=== PATIENT | male | born 1965 | race Caucasian/White ===

== ENCOUNTER 2023-04-23 13:56 | Outpatient (OUT) | payer OTHER, SELFPAY ==
--- NOTE | 2023-04-23 15:17 | PM.CN ---
Consult Note: HPI Data of Consult Patient: new to practice Consult date: 04/23/23 Requesting Physician: Elayne Arreola MD Primary Care Provider: ALLISON MATTSON Consult Narrative Reason for consult: Low back, bilateral lower extremity pain Narrative: 57yom who presents for evaluation. Worsening low back, bilateral lower extremity pain for months to years. Previously seen by neurologist and underwent some superficial injections, with limited benefit. Has engaged in >6 weeks of provider directed home exercise course, with minimal benefit. Uses tylenol and tizanidine, with some benefit. Lumbar mri reviewed, which is significant for spondylosis throughout much of lumbar spine, as well as multilevel stenosis, worst at l4-5. denies adverse med side effects. cc:: CC: Elayne Arreola MD Review of Systems ROS Status of ROS 10 or more systems reviewed and unremarkable except as noted in history and below Exam Narrative Exam Narrative: Psych-alert and oriented x 3. Attentive and appropriate, constitutionally normal, displays normal mood and affect per situation. There are no obvious deficits in memory, reasoning, or intellect.? Skin-no obvious rashes, bruising, erythema noted to the patient's area of pain.? Extremities- extremities are warm with minimal edema and palpable pulses. Lumbar-tenderness to palpation noted in the lumbar spine and paraspinal musculature. Pain is elicited with flexion, extension, and lateral rotation of the lumbar spine. Range of motion is diminished with these motions. Facet loading maneuvers are positive.? Strength-noted to be unremarkable with the exception of decreased strength rated at 4 out of 5 in bilateral quadriceps femoris, anterior tibialis. Sensory-no notable sensory deficits in the bilateral lower extremities to touch or pinprick in all dermatomal distributions with the exception to decreased sensation to the bilateral L4, 5 dermatomal distribution Sacroiliac joint - tender to palpation over bilateral PSIS. Positive thigh thrust bilaterally. Positive Lincoln's maneuver bilaterally. Coordination remains intact.? Gait remains non-antalgic. Assessment and Plan Assessment and Plan (1) Lumbar stenosis with neurogenic claudication: (2) Sacroiliac joint dysfunction of both sides: (3) Lumbar spondylosis: Plan 57yom who presents for evaluation. failed physical and medical modalities, as noted. imaging reviewed, as noted. given symptoms and imaging, prudent to attempt bilateral l4-5 tfesi under fluoroscopic guidance. may even benefit from bilateral sij injections. he is in agreement. medications reviewed. i will refill his zanaflex 4mg bid prn. follow up after procedure.
== END 2023-04-23 13:57 | disposition home or self-care (01) ==
PROVIDERS: PCP Family Medicine; Visit Provider Anesthesiology
DX: M47.816 Spondylosis without myelopathy or radiculopathy, lumbar region (principal); M53.3 Sacrococcygeal disorders, not elsewhere classified; M48.062 Spinal stenosis, lumbar region with neurogenic claudication
CPT/HCPCS: G0463

== ENCOUNTER 2023-05-21 08:43 | Day surgery (SDC) | payer OTHER, SELFPAY ==
[2023-05-21 09:21] VITALS: BP 184/91; PULSE 59; RESP 18; TEMP 36.3; O2SAT 96
[2023-05-21 09:25] LABS: Glucometer 123 mg/dL (74-106)
[2023-05-21 10:10] VITALS: BP 150/80; PULSE 66; RESP 18; O2SAT 96
[2023-05-21 10:12] VITALS: BP 199/109; PULSE 64; RESP 18; O2SAT 96
--- NOTE | 2023-05-21 10:14 | W.PM.PROCNOT ---
Date of procedure: 05/21/23 Pre-op diagnosis: Lumbar stenosis with neurogenic claudication Post-op diagnosis: same as pre-op Procedure: Procedure: Bilateral L4-5 transforaminal epidural steroid injection Medications: Bupivacaine 0.5% 2cc, lidocaine 2% 1cc, kenalog 80mg The patient was seen and examined in the preoperative holding area.? Informed consent was obtained and placed on the chart.? Patient was brought to the medical procedure unit and placed in the prone position where a timeout was completed verifying the correct patient, procedure site, position, and planned special equipment using sterile aseptic technique.? Under direct fluoroscopic visualization a 25-gauge Quincke tipped spinal needle was advanced at level left L4-5 to the designated neural foramen where contrast dye was injected to show adequate spread.? There was no evidence of vascular or adverse uptake.? Epidural spread was appreciated.? The above-mentioned injectate was then placed in a 1.5 mL aliquot preceded by negative aspiration.? The needle was removed. The same procedure, at the same level, was completed on the opposite side. ? Patient was taken to the postprocedural recovery area and monitored for an appropriate length of time before found suitable for discharge in the accompaniment of a responsible adult. Anesthesia: Local Surgeon: Elayne Arreola Pathology: none sent Condition: stable Disposition: no change
[2023-05-21] MEDS: IOHEXOL 240 MG/ML - 10 ML VIAL 72 MG INJ (10:16)
[2023-05-21] MEDS: BUPIVACAINE HCL 0.25% PF 25 MG/10 ML VIAL INJ (10:16)
[2023-05-21] MEDS: 0.9 % SODIUM CHLORIDE 10 ML INJ (10:16)
[2023-05-21] MEDS: TRIAMCINOLONE ACETONIDE 40 MG/ML VIAL 80 MG INJ (10:17)
[2023-05-21] MEDS: LIDOCAINE HCL 2% PF 100 MG/5 ML VIAL 3 ML INJ (10:17)
== END 2023-05-21 10:20 | disposition home or self-care (01) ==
PROVIDERS: PCP Family Medicine; Visit Provider Anesthesiology
DX: M48.062 Spinal stenosis, lumbar region with neurogenic claudication (principal)
CPT/HCPCS: 36415; 64483; Q9966

== ENCOUNTER 2023-10-11 14:02 | Outpatient (OUT) | payer OTHER, SELFPAY ==
--- NOTE | 2023-10-11 14:31 | P.CN_ITS ---
Consult Note: HPI Data of Consult Patient: known to practice within the last 3 years Consult date: 04/23/23 Requesting Physician: Florencia Tatum NP Primary Care Provider: ALLISON MATTSON Consult Narrative Reason for consult: Low back, bilateral lower extremity pain Narrative: 57yom who presents for evaluation. Worsening low back, bilateral lower extremity pain for months to years. Previously seen by neurologist and underwent some superficial injections, with limited benefit. Has engaged in >6 weeks of provider directed home exercise course, with minimal benefit. Uses tylenol and tizanidine, with some benefit. Lumbar mri reviewed, which is significant for spondylosis throughout much of lumbar spine, as well as multilevel stenosis, worst at l4-5. denies adverse med side effects. patient reports no improvement from bilateral L4-5 TFESI, was unable to have bilateral SIJ injection as he had a heart attack. cc:: CC: Florencia Tatum NP Review of Systems ROS Status of ROS 10 or more systems reviewed and unremark able except as noted in history and below Musculoskeletal Reports: back pain and joint pain PFSH PFS Medical History (Updated 05/08/23 @ 15:13 by Kadie Rose) Low back pain ?M54.50 - Low back pain, unspecified (ICD-10) Diabetes ?E11.9 - Type 2 diabetes mellitus without complications (ICD-10) Sleep apnea ?G47.30 - Sleep apnea, unspecified (ICD-10) Asthma ?J45.909 - Unspecified asthma, uncomplicated (ICD-10) Surgical History S/P left knee arthroscopy ?Z98.890 - Other specified postprocedural states (ICD-10) S/P arthroscopy of shoulder ?Z98.890 - Other specified postprocedural states (ICD-10) H/O cervical spine surgery ?Z98.890 - Other specified postprocedural states (ICD-10) History of umbilical hernia repair ?Z98.890 - Other specified postprocedural states (ICD-10) ?Z87.19 - Personal history of other diseases of the digestive system (ICD-10) S/P inguinal hernia repair ?Z98.890 - Other specified postprocedural states (ICD-10) ?Z87.19 - Personal history of other diseases of the digestive system (ICD-10) S/P carpal tunnel release ?Z98.890 - Other specified postprocedural states (ICD-10) History of appendectomy ?Z90.49 - Acquired absence of other specified parts of digestive tract (ICD- 10) Meds Home Medications and Allergies Home Medications ?Medication ?Instructions ?Recorded ?Confirmed ?Type apixaban 5 mg tablet (Eliquis) 5 mg PO BID 04/23/23 05/21/23 History metformin 500 mg tablet 500 mg PO BID 04/23/23 05/21/23 History metoprolol tartrate 50 mg tablet 50 mg PO BID 04/23/23 05/21/23 History tizanidine 4 mg capsule (Zanaflex) 4 mg PO BID PRN muscle spasticity 04/23/23 05/21/23 History Allergies Allergy/AdvReac Type Severity Reaction Status Date / Time amoxicillin [From Augmentin] Allergy Unknown Verified 05/21/23 09:15 clavulanic acid Allergy Unknown Verified 05/21/23 09:15 [From Augmentin] Exam Narrative Exam Narrative: Psych-alert and oriented x 3. Attentive and appropriate, constitutionally normal, displays normal mood and affect per situation. There are no obvious deficits in memory, reasoning, or intellect.? Skin-no obvious rashes, bruising, erythema noted to the patient's area of pain.? Extremities- extremities are warm with minimal edema and palpable pulses. Lumbar-tenderness to palpation noted in the lumbar spine and paraspinal musculature. Pain is elicited with flexion, extension, and lateral rotation of the lumbar spine. Range of motion is diminished with these motions. Facet loading maneuvers are positive.? Strength-noted to be unremarkable with the exception of decreased strength rated at 4 out of 5 in bilateral quadriceps femoris, anterior tibialis. Sensory-no notable sensory deficits in the bilateral lower extremities to touch or pinprick in all dermatomal distributions with the exception to decreased sensation to the bilateral L4, 5 dermatomal distribution Sacroiliac joint - tender to palpation over left PSIS. Positive thigh thrust bilaterally. Positive Lincoln's maneuver bilaterally. Coordination remains intact.? Gait remains non-antalgic. Constitutional Documenting provider has reviewed patient's vital signs: yes Common normals: no apparent distress, oriented x3, healthy appearing, alert and well nourished General appearance: cooperative HENMT Common normals: normocephalic, hearing grossly normal bilaterally and moist oral mucous membranes Head and scalp: normocephalic Eye Common normals: PERRL Pupil: PERRL Neck & C-Spine Common normals: full ROM General: normal visual inspection Chest Common normals: inspection of chest normal Respiratory Common normals: normal respiratory effort, no retractions and no use of accessory muscles Neuro Common normals: oriented x3, CN's II-XII intact bilaterally, moves all extremities, no focal motor deficits, no sensory deficits noted and deep tendon reflexes 2+ bilaterally Sensorium/orientation: alert Motor exam: strength 5/5 throughout and no movement abnormalities noted Psych Common normals: mental status grossly normal, thought process normal, cooperative, affect normal, speech normal and activity/motor behavior normal Speech: normal speech Thought process: normal thought process Results Additional Findings Additional findings: If on a controlled substance or opioids, I have checked an [place] report on this patient and there are no aberrancies noted in the prescribing history.??If on a controlled substance or opioid a drug screen was completed and reviewed within the last year, and if there has not been a drug screen completed we ordered one today to monitor higher risk, state monitored pain medication use. As part of providing excellent, safe, comprehensive care, the following was completed at our patient's visit: 1. A medication reconciliation and review to ensure accurate knowledge of current/active medications, including asking our patients to inform us about any [id number] medications or herbal remedies/nutritional supplements/alternative remedies. 2. A review to specifically ensure our patients have had annual screening for screening for depression, screening for tobacco use, and screening for unhealthy alcohol use. For concerning screenings had a discussion with the patient, provided patient education, and recommended follow-up with primary care provider when appropriate. If patient noted with a risk of falling, they received education on strength, gait, and balance training to prevent future risk of falling. Assessment and Plan Assessment and Plan (1) Lumbar stenosis with neurogenic claudication: (2) Sacroiliac joint dysfunction of both sides: (3) Lumbar spondylosis: Plan cardiology advised patient not have injection therapy for 6 months post heart attack continue HEP as tolerated avoid NSAIDs with blood thinners/cardiac hx tens unit discussed and ordered continue zanaflex f/u 2 months
== END 2023-10-11 14:03 | disposition home or self-care (01) ==
LOC: PM 14:02
PROVIDERS: PCP Family Medicine; Visit Provider Nurse Practitioner
DX: M48.062 Spinal stenosis, lumbar region with neurogenic claudication (principal); M53.3 Sacrococcygeal disorders, not elsewhere classified; M47.816 Spondylosis without myelopathy or radiculopathy, lumbar region
CPT/HCPCS: G0463

== ENCOUNTER 2023-12-13 13:36 | Outpatient (OUT) | payer OTHER, SELFPAY ==
--- NOTE | 2023-12-13 13:48 | P.CN_ITS ---
Consult Note: HPI Data of Consult Patient: known to practice within the last 3 years Consult date: 04/23/23 Requesting Physician: Florencia Tatum NP Primary Care Provider: ALLISON MATTSON Consult Narrative Reason for consult: Low back, bilateral lower extremity pain Narrative: 57yom who presents for evaluation. Worsening low back, bilateral lower extremity pain for months to years. Previously seen by neurologist and underwent some superficial injections, with limited benefit. Has engaged in >6 weeks of provider directed home exercise course, with minimal benefit. Uses tylenol and tizanidine, with some benefit. Lumbar mri reviewed, which is significant for spondylosis throughout much of lumbar spine, as well as multilevel stenosis, worst at l4-5. Prior EMG consistent with L3/4 radiculopathy. denies adverse med side effects. cc:: CC: Florencia Tatum NP Review of Systems ROS Status of ROS 10 or more systems reviewed and unremark able except as noted in history and below Musculoskeletal Reports: back pain and joint pain PFSH PFSH Medical History Low back pain ?M54.50 - Low back pain, unspecified (ICD-10) Diabetes ?E11.9 - Type 2 diabetes mellitus without complications (ICD-10) Sleep apnea ?G47.30 - Sleep apnea, unspecified (ICD-10) Asthma ?J45.909 - Unspecified asthma, uncomplicated (ICD-10) Surgical History S/P left knee arthroscopy ?Z98.890 - Other specified postprocedural states (ICD-10) S/P arthroscopy of shoulder ?Z98.890 - Other specified postprocedural states (ICD-10) H/O cervical spine surgery ?Z98.890 - Other specified postprocedural states (ICD-10) History of umbilical hernia repair ?Z98.890 - Other specified postprocedural states (ICD-10) ?Z87.19 - Personal history of other diseases of the digestive system (ICD-10) S/P inguinal hernia repair ?Z98.890 - Other specified postprocedural states (ICD-10) ?Z87.19 - Personal history of other diseases of the digestive system (ICD-10) S/P carpal tunnel release ?Z98.890 - Other specified postprocedural states (ICD-10) History of appendectomy ?Z90.49 - Acquired absence of other specified parts of digestive tract (ICD- 10) Meds Home Medications and Allergies Home Medications ?Medication ?Instructions ?Recorded ?Confirmed ?Type apixaban 5 mg tablet (Eliquis) 5 mg PO BID 04/23/23 05/21/23 History metformin 500 mg tablet 500 mg PO BID 04/23/23 05/21/23 History metoprolol tartrate 50 mg tablet 50 mg PO BID 04/23/23 05/21/23 History tizanidine 4 mg capsule (Zanaflex) 4 mg PO BID PRN muscle spasticity 04/23/23 05/21/23 History ascorbic acid (vitamin C) 500 mg 500 mg PO DAILY 10/11/23 10/11/23 History tablet (C-500) multivitamin 1 tab PO DAILY 10/11/23 10/11/23 History omega 9-ipl-lfc-fish oil 300 1 cap PO DAILY 10/11/23 10/11/23 History mg-1,000 mg capsule (Fish Oil) ticagrelor 60 mg tablet (Brilinta) 60 mg PO BID 10/11/23 10/11/23 History Allergies Allergy/AdvReac Type Severity Reaction Status Date / Time amoxicillin [From Augmentin] Allergy Unknown Verified 05/21/23 09:15 clavulanic acid Allergy Unknown Verified 05/21/23 09:15 [From Augmentin] Exam Narrative Exam Narrative: Psych-alert and oriented x 3. Attentive and appropriate, constitutionally normal, displays normal mood and affect per situation. There are no obvious deficits in memory, reasoning, or intellect.? Skin-no obvious rashes, bruising, erythema noted to the patient's area of pain.? Extremities- extremities are warm with minimal edema and palpable pulses. Lumbar-tenderness to palpation noted in the lumbar spine and paraspinal musculature. Pain is elicited with flexion, extension, and lateral rotation of the lumbar spine. Range of motion is diminished with these motions. Facet loading maneuvers are positive.? Strength-noted to be unremarkable with the exception of decreased strength rated at 4 out of 5 in bilateral quadriceps femoris, anterior tibialis. Sensory-no notable sensory deficits in the bilateral lower extremities to touch or pinprick in all dermatomal distributions with the exception to decreased sensation to the left L3,4,5 dermatomal distribution Sacroiliac joint - tender to palpation over left PSIS. Positive thigh thrust bilaterally. Positive Lincoln's maneuver bilaterally. Coordination remains intact.? Gait remains non-antalgic. Constitutional Documenting provider has reviewed patient's vital signs: yes Common normals: no apparent distress, oriented x3, healthy appearing, alert and well nourished General appearance: cooperative HENMT Common normals: normocephalic, hearing grossly normal bilaterally and moist oral mucous membranes Head and scalp: normocephalic Eye Common normals: PERRL Pupil: PERRL Neck & C-Spine Common normals: full ROM General: normal visual inspection Chest Common normals: inspection of chest normal Respiratory Common normals: normal respiratory effort, no retractions and no use of accessory muscles Neuro Common normals: oriented x3, CN's II-XII intact bilaterally, moves all extremities, no focal motor deficits, no sensory deficits noted and deep tendon reflexes 2+ bilaterally Sensorium/orientation: alert Motor exam: strength 5/5 throughout and no movement abnormalities noted Psych Common normals: mental status grossly normal, thought process normal, cooperative, affect normal, speech normal and activity/motor behavior normal Speech: normal speech Thought process: normal thought process Results Additional Findings Additional findings: If on a controlled substance or opioids, I have checked an [place] report on this patient and there are no aberrancies noted in the prescribing history.??If on a controlled substance or opioid a drug screen was completed and reviewed within the last year, and if there has not been a drug screen completed we ordered one today to monitor higher risk, state monitored pain medication use. As part of providing excellent, safe, comprehensive care, the following was completed at our patient's visit: 1. A medication reconciliation and review to ensure accurate knowledge of curre nt/active medications, including asking our patients to inform us about any [id number]-chx-txrnren medications or herbal remedies/nutritional supplements/alternative remedies. 2. A review to specifically ensure our patients have had annual screening for screening for depression, screening for tobacco use, and screening for unhealthy alcohol use. For concerning screenings had a discussion with the patient, provided patient education, and recommended follow-up with primary care provider when appropriate. If patient noted with a risk of falling, they received education on strength, gait, and balance training to prevent future risk of falling. Assessment and Plan Assessment and Plan (1) Lumbar stenosis with neurogenic claudication: (2) Sacroiliac joint dysfunction of both sides: (3) Lumbar spondylosis: Plan Left L3-4 L4-5 TFESI under fluoroscopy with 10mg PO valium 30-60 mins prior to procedure left SIJ injection under fluoroscopy with 10mg PO valium 30-60 mins prior to procedure continue HEP as tolerated avoid NSAIDs with blood thinners/cardiac hx continue zanaflex 4mg BID PRN f/u 2 weeks after injections completed
== END 2023-12-13 13:37 | disposition home or self-care (01) ==
LOC: PM 13:36
PROVIDERS: PCP Family Medicine; Visit Provider Nurse Practitioner
DX: M48.062 Spinal stenosis, lumbar region with neurogenic claudication (principal); M53.3 Sacrococcygeal disorders, not elsewhere classified; M47.816 Spondylosis without myelopathy or radiculopathy, lumbar region
CPT/HCPCS: G0463

== ENCOUNTER 2024-01-14 07:32 | Day surgery (SDC) | payer OTHER, SELFPAY ==
--- OUTSIDE RECORDS SUMMARY | 2024-01-14 07:36 | XMS_ITS | CCD ---
Author Organization [facility] Informat ion Partnership [facility] Care Team Providers Care Evp Global Product Leadership Name Role Phone Cortez Varma Unavailable Ford Humphreys Admitting Unavailable Ford Humphreys Attending Unavailable Diego CASTRO Attending Unavailable Dieter Duarte Attending Unavailable KIESHA CORONEL Admitting Unavailab KIESHA Roberts Attending Unavailab FERNANDO Brooks Referring Unavailab MAYA Linda Primary Care Unavailable RAFAELA SUAREZ Consulting Unavailable KATHLEEN PATRICK Consulting Unavailable Maya Mattson MD Primary Care Provider MAYA MATTSON Attending Unavailable MAYA MATTSON Referring Unavailable MAYA MATTSON Attending Unavailable MAYA MATTSON Attending Unavailable MAYA MATTSON Attending Unavailable ANDRE OSBORNE Referring UnavailMAYA Guaman Primary Care Unavailable ANDRE OSBORNE Referring UnavailMAYA Guaman Primary Care Unavailable ANDRE OSBORNE Referring Unavailabl MAYA Ramirez Primary Care Unavailable ANDRE OSBORNE Referring UnavailMAYA Guaman Primary Care Unavailable ANDRE OSBORNE Referring Unavailabl MAYA Ramirez Primary Care Unavailable ANDRE OSBORNE R Referring Unavailabl MAYA Ramirez Primary Care Unavailable ANDRE OSBORNE Referring Unavailabl MAYA Ramirez Primary Care Unavailable ANDRE OSBORNE Referring Unavailabl MAYA Ramirez Primary Care Unavailable ANDRE OSBORNE Referring Unavailabl MAYA Ramirez Primary Care Unavailable [facility] R Referring Unavailabl e MAYA MATTSON Primary Care Unavailable KATHY LOPEZ Attending Unavailable MAYA MATTSON Referring Unavailable MAYA MATTSON Primary Care Unavailable [facility] R Referring Unavailabl e MAYA MATTSON Primary Care Unavailable [facility] R Referring Unavailabl e MAYA MATTSON G Primary Care Unavailable [facility] R Referring Unavailabl e MAYA MATTSON Primary Care Unavailable EDDIE DOUGHERTY Attending Unavailable MAYA MATTSON Referring Unavailable MAYA MATTSON Primary Care Unavailable MAYA MATTSON Referring Unavailable MAYA MATTSON Primary Care Unavailable [facility] R Referring Unavailabl e MAYA MATTSON Primary Care Unavailable [facility] R Referring Unavailabl e MAYA MATTSON G Primary Care Unavailable [facility] R Referring Unavailabl e MAYA MATTSON G Primary Care Unavailable [facility] R Referring Unavailabl e MAYA MATTSON Primary Care Unavailable [facility] R Referring Unavailabl e MAYA MATTSON G Primary Care Unavailable [facility] R Referring Unavailabl e MAYA MATTSON G Primary Care Unavailable [facility] R Referring Unavailabl e MAYA MATTSON Primary Care Unavailable [facility] R Referring Unavailabl e MAYA MATTSON G Primary Care Unavailable [facility] R Referring Unavailabl e MAYA MATTSON G Primary Care Unavailable [facility] R Referring Unavailabl e MAYA MATTSON G Primary Care Unavailable [facility] R Referring Unavailabl e MAYA MATTSON G Primary Care Unavailable [facility] R Referring Unavailabl e MAYA MATTSON G Primary Care Unavailable [facility] R Referring Unavailabl e MAYA MATTSON G Primary Care Unavailable [facility] R Referring Unavailabl e MAYA MATTSON G Primary Care Unavailable [facility] R Referring Unavailabl e MAYA MATTSON Primary Care Unavailable [facility] R Referring Unavailabl MAYA Ramirez Primary Care Unavailable [facility] R Referring Unavailabl e MAYA MATTSON G Primary Care Unavailable [facility] R Referring Unavailabl e MAYA MATTSON G Primary Care Unavailable [facility] R Referring Unavailabl e MAYA MATTSON G Primary Care Unavailable [facility] R Referring Unavailabl e MAYA MATTSON G Primary Care Unavailable [facility] R Referring Unavailabl e MAYA MATTSON G Primary Care Unavailable [facility] R Referring Unavailabl e MAYA MATTSON G Primary Care Unavailable [facility] R Referring Unavailabl e MAYA MATTSON G Primary Care Unavailable [facility] R Referring Unavailabl e MAYA MATTSON G Primary Care Unavailable [facility] R Referring Unavailabl e MAYA MATTSON G Primary Care Unavailable [facility] R Referring Unavailabl e MAYA MATTSON G Primary Care Unavailable [facility] R Referring Unavailabl e MAYA MATTSON G Primary Care Unavailable [facility] R Referring Unavailabl e MAYA MATTSON G Primary Care Unavailable [facility] R Referring Unavailabl e MAYA MATTSON G Primary Care Unavailable [facility] R Referring Unavailabl e MAYA MATTSON G Primary Care Unavailable [facility] R Referring Unavailabl MAYA Ramirez G Primary Care Unavailable [facility] R Referring Unavailabl e MAYA MATTSON G Primary Care Unavailable [facility] R Referring Unavailabl e MAYA MATTSON G Primary Care Unavailable [facility] R Referring Unavailabl e MAYA MATTSON G Primary Care Unavailable [facility] R Referring Unavailabl e MAYA MATTSON G Primary Care Unavailable [facility] R Referring Unavailabl e MAYA MATTSON G Primary Care Unavailable MAYUR BUTLER Attending Unavailable MAYA MATTSON Referring Unavailable MAYA MATTSON G Primary Care Unavailable Maxwell ABRAHAM, Elayne Kendall Attending Unavailable Maya Mattson MD Primary Care Unavaila ble Maxwell ABRAHAM, Elayne Kendall Attending Unavailable Maya Mattson MD Primary Care Unavaila ble Allergies Allergy Classification Reported Allergen(s) Allergy Type Date of Onset Reaction(s) Facility (20 sources) Amoxicillin / Clavulanate Drug Allergy 9 Other (See Comments) [facility] Other (1 source) Amoxicillin / Clavulanate; Translations: [Augmentin] Drug Allergy [facility] Repository (2 sources) AMOXICILLIN-POT CLAVULANATE; Translations: [AMOXICILLIN-PO T CLAVULANATE] Propensity to adverse reactions to drug (disorder) 9 [facility] Repository (20 sources) Amoxicillin; Translations: [AMOXICILLIN] Drug Allergy 3 [facility] Medications Current Medications Medication Drug Class(es) Dates Sig (Normalized) Sig (Original) apixaban 5 mg oral tablet (20 sources) Factor Xa Inhibitor take 1 tablet by mouth in the morning, then take 1 tablet by mouth at bedtime apixaban (ELIQUIS) 5 mg tablet Take 1 tablet (5 mg total) by mouth in the morning and 1 tablet (5 mg total) before bedtime. 0 Active atorvastatin 40 mg oral tablet (20 sources) HMG-CoA Reductase Inhibitor Start: 06-12-2023 take 1 tablet by mouth in the morning atorvastatin (LIPITOR) 40 mg tablet Take 1 tablet (40 mg total) by mouth in the morning. 30 tablet 0 06/12/2023 Active 24 hr buPROPion hydrochloride 150 mg extended release oral tablet (20 sources) Aminoketone take 1 tablet by mouth every twenty-four hours in the morning buPROPion XL (WELLBUTRIN XL) 150 mg 24 hr tablet Take 1 tablet (150 mg total) by mouth in the morning. 0 Active carvedilol 12.5 mg oral tablet (20 sources) alpha-Adrenergic Sneha, beta-Adrenergic Sneha Start: 06-12-2023 take 1 tablet by mouth in the morning, then take 1 tablet by mouth at bedtime carvediloL (COREG) 12.5 mg tablet Take 1 tablet (12.5 mg total) by mouth in the morning and 1 tablet (12.5 mg total) before bedtime. 60 tablet 0 06/12/2023 Active clopidogrel 75 mg oral tablet (20 sources) P2Y12 Platelet Inhibitor Start: 06-22-2023 take 1 tablet by mouth in the morning clopidogreL (PLAVIX) 75 mg tablet Take 1 tablet (75 mg total) by mouth in the morning. 90 tablet 3 06/22/2023 Active ezetimibe 10 mg oral tablet (20 sources) Dietary Cholesterol Absorption Inhibitor Start: 06-22-2023 take 1 tablet by mouth in the morning ezetimibe (ZETIA) 10 mg tablet Take 1 tablet (10 mg total) by mouth in the morning. 90 tablet 3 06/22/2023 Active furosemide 20 mg oral tablet (20 sources) Loop Diuretic Start: 06-22-2023 furosemide (LASIX) 20 mg tablet Take 1 tablet (20 mg total) by mouth as needed (For leg swelling). 30 tablet 11 06/22/2023 Active lisinopril 10 mg oral tablet (20 sources) Angiotensin Converting Enzyme Inhibitor take 1 tablet by mouth once daily lisinopriL (PRINIVIL,ZESTRIL) 10 mg tablet Take 1 tablet (10 mg total) by mouth nightly. 0 Active Mens Multi Vitamin & Mineral - (2 sources) take 1 tablet by mouth once daily Mens Multi Vitamin & Mineral - 1 tablet Orally once daily Active metFORMIN hydrochloride 500 mg oral tablet (20 sources) Biguanide take 1 tablet by mouth in the morning, then take 1 tablet by mouth at bedtime metFORMIN (GLUCOPHAGE) 500 mg tablet Take 1 tablet (500 mg total) by mouth in the morning and 1 tablet (500 mg total) before bedtime. 0 Active metoprolol tartrate 50 mg oral tablet (2 sources) beta-Adrenergic Sneha take 1 tablet by mouth twice daily at mealtime Metoprolol Tartrate 50 MG TAKE 1 TABLET BY MOUTH TWICE DAILY WITH MEALS Oral for 90 Active naltrexone hydrochloride 50 mg oral tablet (20 sources) Opioid Antagonist take 0.5 tablet by mouth in the morning naltrexone (REVIA) 50 mg tablet Take 0.5 tablets (25 mg total) by mouth in the morning. 0 Active nitroglycerin 0.3 mg sublingual tablet (20 sources) Nitrate Vasodilator Start: 06-12-2023 nitroglycerin (NITROSTAT) 0.[address] 1 tablet (0.3 mg total) under the tongue every 5 (five) minutes as needed for chest pain. 100 tablet 3 06/12/2023 Active pantoprazole 40 mg delayed release oral tablet (20 sources) Proton Pump Inhibitor Start: 06-13-2023 take 1 tablet by mouth once daily before breakfast pantoprazole (PROTONIX) 40 mg EC tablet Take 1 tablet (40 mg total) by mouth every morning before breakfast. 30 tablet 0 06/13/2023 Active ticagrelor 90 mg oral tablet (2 sources) Start: 06-12-2023 End: 06-22-2023 take 1 tablet by mouth once ticagrelor (BRILINTA) 90 mg tablet Take 1 tablet (90 mg total) by mouth every 12 (twelve) hours. 60 tablet 0 06/12/2023 06/22/2023 Discontinued Completed/Discontinued Medications Medication Drug Class(es) Dates Sig (Normalized) Sig (Original) [id number] 200 actuat albuterol 0.09 mg/actuat metered dose inhaler (20 sources) beta2-Adrenergic Agonist Start: 06-02-2019 take 2 puff(s) by inhalation every six hours as needed Albuterol Sulfate HFA 108 (90 Base) MCG/ACT 2 puffs as needed Inhalation every 6 hrs for 30 days May, Not-Taking take 2 puff(s) by in halation every six hours as needed for wheezing albuterol (PROVENTIL HFA;VENTOLIN HFA) 9 0 mcg/actuation inhaler Inhale 2 puffs every 6 (six) hours as needed for wheezing. 0 Active aspirin 81 mg chewable tablet (20 sources) Platelet Aggregation Inhibitor, Nonsteroidal Anti-inflammatory Drug Start: 07-12-2023 End: 09-20-2023 aspirin 81 mg chewable tablet Chew 1 tablet (81 mg total) and swallow in the morning. 30 tablet 0 07/12/2023 09/20/2023 Discontinued Start: 07-12-2023 aspirin 81 mg chewable tablet Chew 1 tablet (81 mg total) and swallow in the morning. 30 tablet 0 07/12/2023 Active Start: 07-12-2023 aspirin 81 mg chewable tablet Chew 1 tablet (81 mg total) and swallow in the morning. 30 tablet 0 07/12/2023 Active Start: 07-12-2023 aspirin 81 mg chewable tablet Chew 1 tablet (81 mg total) and swallow in the morning. 30 tablet 0 07/12/2023 Active Start: 07-12-2023 aspirin 81 mg chewable tablet Chew 1 tablet (81 mg total) and swallow in the morning. 30 tablet 0 07/12/2023 Active Start: 06-13-2023 End: 06-22-2023 aspirin 81 mg chewable table t Chew 1 tablet (81 mg total) and swallow in the morning. 30 tablet 0 06/13/2023 06/22/2023 Discontinued dextromethorphan hydrobromide 1.5 mg/ml / pyrilamine maleate 1.5 mg/ml oral solution (2 sources) Uncompetitive W-iblaep-Z-aspartate Receptor Antagonist, Sigma-1 Agonist Start: 06-02-2019 Paton DM 7.5-7.5 MG/5ML 10 ml Orally every 6-8 hours PRN for 8 days May, Not-Taking fluticasone propionate 0.05 mg/actuat metered dose nasal spray (2 sources) Corticosteroid Start: 06-02-2019 take 1 spray(s) nasal route once daily Fluticasone Propionate 50 MCG/ACT 1 spray in each nostril Nasally Once a day for 30 day(s) May, Not-Taking Ketorolac (2 sources) Nonsteroidal Anti-inflammatory Drug, Cyclooxygenase Inhibitor Start: 01-28-2018 Toradol per 15 mg Jan, 60 mg montelukast 10 mg oral tablet (2 sources) Leukotriene Receptor Antagonist take 1 tablet by mouth every twenty-fou r hours Singulair 10 MG 1 tablet in the evening Orally Once a day for 30 day(s) prn Not-Taking Problems Active Problems Problem Classification Problem Date Documented Da te Episodic/Chronic Anxiety disorders (20 sources) Anxiety; Translations: [Anxiety disorder, unspecified] Onset: 6 06-10-2023 Chronic Coronary atherosclerosis and other heart disease (20 sources) Acute ischemic heart disease, unspecified; Translations: [Unstable angina] Onset: 3 06-09-2023 Chronic Diabetes mellitus with complications (1 source) Type 2 diabetes mellitus with other specified complication; Translations: [Type 2 diabetes mellitus with other specified complication] Onset: 3 Chronic Diabetes mellitus without complication (20 sources) Type 2 diabetes mellitus; Translations: [Type 2 diabetes mellitus without complications] Onset: 3 06-10-2023 Chronic Disorders of lipid metabolism (2 sources) Pure hypercholesterolemia; Translations: [Pure hypercholesterolemia, unspecified] Onset: 3 06-21-2023 Chronic Esophageal disorders (20 sources) Gastroesophageal reflux disease without esophagitis; Translations: [Gastro-esophageal reflux disease without esophagitis] Onset: 6 06-10-2023 Chronic Essential hypertension (20 sources) Essential hypertension; Translations: [Essential (primary) hypertension] Onset: 6 06-10-2023 Chronic Nonspecific chest pain (2 sources) Chest pain, unspecified; Translations: [Chest pain] Onset: 3 Episodic Other lower respiratory disease (2 sources) Dyspnea; Translations: [Shortness of breath] 06-22-2023 Episodic Other lower respiratory disease (1 source) Shortness of breath Onset: 4 Episodic Other nutritional; endocrine; and metabolic disorders (20 sources) Morbid obesity; Translations: [Morbid (severe) obesity due to excess calories] Onset: 5 06-10-2023 Chronic Other nutritional; endocrine; and metabolic disorders (1 source) Body mass index 40+ - severely obese; Translations: [Morbid (severe) obesity due to excess calories] 06-21-2023 Chronic Other nutritional; endocrine; and metabolic disorders (1 source) Morbid (severe) obesity due to excess calories; Translations: [Morbid (severe) obesity due to excess calories] Onset: 3 Chronic Other nutritional; endocrine; and metabolic disorders (1 source) Body mass index (BMI) 50.0-59.9, adult; Translations: [Body mass index (BMI) 50.0-59.9, adult] Onset: 3 Chronic Phlebitis; thrombophlebitis and thromboembolism (20 sources) Chronic deep venous thrombosis of lower extremity; Translations: [Chronic embolism and thrombosis of unspecified deep veins of unspecified lower extremity] Onset: 3 06-10-2023 Chronic Residual codes; unclassified (20 sources) Obstructive sleep apnea syndrome; Translations: [Obstructive sleep apnea (adult) (pediatric)] Onset: 5 12-17-2023 Chronic Unclassified (1 source) Acute cornary syndrome Onset: Past or Other Problems Problem Classification Problem Date Documented Da te Episodic/Chronic Abdominal hernia (20 sources) Hernia of anterior abdominal wall; Translations: [Ventral hernia without obstruction or gangrene] Onset: 06-06-2015 10-03-2022 Episodic Coronary atherosclerosis and other heart disease (2 sources) Coronary angioplasty status; Translations: [Presence of coronary angioplasty implant and graft] Onset: 06-10-2023 Episodic Other lower respiratory disease (1 source) Shortness of breath; Translations: [Shortness of breath] Onset: 06-22-2023 Episodic Phlebitis; thrombophlebitis and thromboembolism (3 sources) Acute embolism and thrombosis of unspecified deep veins of left lower extremity; Translations: [H/O: Deep vein thrombosis] Onset: 08-22-2021 Resolved: 08-22-2021 Episodic Unclassified (20 sources) Onset: 10-03-2022 10-03-2022 Results Test Name Value Interpretation Reference Range [facility] Glucose Glucometer (BldC) [M ass/Vol]on 09-17-2023 Glucose [Mass/Vol] 103 mg/dL High 65-99 [facility] Glucose [Mass/Vol] 103 mg/dL High 65 - 99 mg/dL Pro [facility] Interpretation and review of laboratory results Abnormal [facility] Glucose Glucometer (BldC) [M ass/Vol]on 09-05-2023 Glucose [Mass/Vol] 120 mg/dL High 65-99 [facility] Glucose [Mass/Vol] 120 mg/dL High 65 - 99 mg/dL [facility] Interpretation and review of laboratory results Abnormal [facility] Glucose Glucometer (BldC) [M ass/Vol]on 07-30-2023 Glucose [Mass/Vol] 105 mg/dL High 65-99 [facility] Glucose [Mass/Vol] 121 mg/dL High 65-99 [facility] Glucose Glucometer (BldC) [M ass/Vol]on 07-26-2023 Glucose [Mass/Vol] 132 mg/dL High 65-99 [facility] Glucose [Mass/Vol] 132 mg/dL High 65 - 99 mg/dL [facility] Interpretation and review of laboratory results Abnormal [facility] Glucose Glucometer (BldC) [M ass/Vol]on 07-25-2023 Glucose [Mass/Vol] 102 mg/dL High 65-99 [facility] Glucose [Mass/Vol] 144 mg/dL High 65-99 [facility] Glucose [Mass/Vol] 144 mg/dL High 65 - 99 mg/dL [facility] Glucose [Mass/Vol] 102 mg/dL High 65 - 99 mg/dL [facility] Interpretation and review of laboratory results Abnormal [facility] Glucose Glucometer (BldC) [M ass/Vol]on 07-23-2023 Glucose [Mass/Vol] 136 mg/dL High 65-99 [facility] Glucose Glucometer (BldC) [M ass/Vol]on 07-18-2023 Glucose [Mass/Vol] 115 mg/dL High 65-99 [facility] Glucose [Mass/Vol] 152 mg/dL High 65-99 [facility] Glucose [Mass/Vol] 115 mg/dL High 65 - 99 mg/dL [facility] Interpretation and review of laboratory results Abnormal [facility] Glucose [Mass/Vol] 152 mg/dL High 65 - 99 mg/dL [facility] Interpretation and review of laboratory results Abnormal [facility] Glucose Glucometer (BldC) [M ass/Vol]on 07-16-2023 Glucose [Mass/Vol] 118 mg/dL High 65-99 [facility] Glucose [Mass/Vol] 142 mg/dL High 65-99 [facility] Glucose Glucometer (BldC) [M ass/Vol]on 07-12-2023 Glucose [Mass/Vol] 107 mg/dL High 65-99 [facility] Glucose [Mass/Vol] 130 mg/dL High 65-99 [facility] Glucose [Mass/Vol] 130 mg/dL High 65 - 99 mg/dL [facility] Glucose [Mass/Vol] 107 mg/dL High 65 - 99 mg/dL [facility] Interpretation and review of laboratory results Abnormal [facility] Glucose Glucometer (BldC) [M ass/Vol]on 07-11-2023 Glucose [Mass/Vol] 93 mg/dL Normal 65-99 [facility] Glucose [Mass/Vol] 180 mg/dL High 65-99 [facility] Glucose [Mass/Vol] 93 mg/dL 65 - 99 mg/dL Pro [facility] Glucose [Mass/Vol] 180 mg/dL High 65 - 99 mg/dL [facility] Interpretation and review of laboratory results Abnormal [facility] Glucose Glucometer (BldC) [M ass/Vol]on 07-09-2023 Glucose [Mass/Vol] 115 mg/dL High 65-99 [facility] Glucose [Mass/Vol] 129 mg/dL High 65-99 [facility] Glucose [Mass/Vol] 115 mg/dL High 65 - 99 mg/dL [facility] Interpretation and review of laboratory results Abnormal [facility] Glucose [Mass/Vol] 129 mg/dL High 65 - 99 mg/dL [facility] Interpretation and review of laboratory results Abnormal [facility] BNPon 06-27-2023 [facility] XR CHEST 2 VIEWSon 3 XR CHEST 2 VIEWS FINDINGS: Remote internal fixation cervical spine. Postsurgical change right humeral head. Cardiopericardial silhouette normal. Pulmonary vasculature normal. Lungs clear. IMPRESSION: Impression: No acute cardiopulmonary disease. ELECTRONICALLY SIGNED BY: Stepan Tellez MD Normal Not Available Progress Note-Nurseon 2021 Progress Note-Nurse Pt called back stating he is feeling a lot better and would like to hold off on the neruo consult for right now. Normal [facility] Progress Note-Nurse Message left on patient's VM that he was approved for Neurology Consult and to call back if he wanted to go ahead with that visit. Normal [facility] Workers' Comp Officeon 04-18 Workers' Comp Office [id number] 00 [id number]# 1.00CD:127 Normal [facility] Coding Summary.on 04-17-2022 Coding Summary. CD:[id number] G h0bWw+PGhlYWQ+LK5CKFQ hT49quDLojU1JF0tCTB3N OOOQXPOZRB3WOH1jsHT1Y SxgT8YsjhAn JnybkVGkPA53SVo4JOW3w OlqTDnnkS4snNFxT7k4Qg EzWC46wW17IWnnZCDjBmO 3LjZpbjsgbWFy S3dhUuWpxVUyFiv+PHRhY mxlIHdpZHRoPScxMDAlJy NwkKriKE0kGn6dXZUwNBN vbGxhcHNlOiBj o1prIKMrEFfoHA9izHbnB 7PjeMB1FGRcs5d8Gb97gP I+FVFnVAV3nZewLBgge88 1AxYsk8raMBA8 sCFzFBwjZFR1X06yh1E7D KBsZMGeHRQ1gAS8mO1okC qofnjnZ5DiqNGzIdB4EYF 8kYNyoO9eiVdp spidbX0bEjr+R32XUH7KM KWWQU4RVlt2M1QhSnmdwB I+LU21COFgID78hLUaxFS yd8umbFp7PgLs UKBmABV5nNopFUufw8WyJ BDcY63uzHXll4L0CQWmjM mcwMIdRgFnbXO5zA2xPMl qghbqi4nnhctz Wbvdo9xmub57cN26F13pB FbkUFIyUGO2AKHyYHItiP gcbi6liB7aUx3+XYafb1s cp1ldgBr7VrBv ZVBonfLqzPqxZMC4f2GiT l04M0IbjDpcg1MwDhj5zk 06xLUjj1M3iTA6TKcvEQO ljF1vOYpqHuZ8 FPWwEtEszP63zVKdGJcvH q8qfQlffDqsPY3hTVJazg wgHOPflQ1xXADgkETesEm vLA5mGKUdgqlm v055ZeLgBKM1AZWafJJcT 0NbbP2uTtEbDYGsHPVdY5 IudLVfGDzsK817BXnsJxK 6VYTptuUtF3On CYVcgDfkPxK4w3W6Bq3Fu 9UwedvzGRN4RUfzMPKoEv K3SiUuAwE8K0CpIvz9NXK jdTzsNA4sJ8Fz ZAVrrjnmdhpjvPZ0DYXdY FCxvJ07bFPxYQzkFa0xj4 H2c720TCEqGNGtpJ99Ih2 udDogMTBwdCBU iK3kuloea2saapwcLrSiT KHsNYb3BRx1ZWVqeUuvHj GySYA2AvJ8ZPN7xHBltT6 exWxhrafzvE8b Oyc+Q94gnM3sUSE8LEC2v sufLKQivhPzXC73RH95K3 RyPjwvdGFibGU+PGRpdiB gxCvgZC0uVjSw r3ahh1KoVWbwL6NkFHPbI CueIih6SLDfVJY4rZS5bN 7pBCPgTMkqc9U3nVO3M5P bccFngg3ql4fh YKVsJWscN71rxLOhm8H7M NUelNX3UKTijNakTzWdrW 93Oyc+HOBgePwkd0ZwMse ir7tgy7ysfPd1 WzOmMMXdbzFfpGsqYFD4u 6YoJi73C13lKKofSXKiRU KtRBLtAKSrtCeyqm1ypQ4 wIi8+PGNvbCB3 kZH1sJ6mCUMjKjF3GUmqW 273DaFtqHIxLuhuz9xyz9 nhdBx7FyPrTPDwvcOhkHv uTAE9t8IwMn89 F31gKKniDQXpXPSkXEVcS TJgcQjruk0ljG2tYa0+PC 1sp9zvtb04hH32bAR+PHR fZUF2tDsbSSav QNFzxP0wMDiuWbE9KMAeA hHvsF05gYYhTAgiXv7xbC unjVpoXT8pYEHrmyffy28 8LxCaz0bzQLDd vOMmVIlsDVI0X69bv7B7X WUvLKPmDHE3dBX4iF2dcK lnbjogbGVmdDsgdmVydGl dKJdeBRueG979 IHRvcDsnPlBhdGllbnQgT wLbSHz4S2WvXvw1KDHpvF mfYR0guLLlDCjrOa3vqSb ctOjiNC4mWSRl mraqp182KjLny6kkRWOzb GOdWUcdRXW7F40la8V3PE OtUCFcXMA9dWT0qU3nzNq nbjogbGVmdDsg bdRpvOstTFreKDgnQ234H HRvcDsnPkJpcnRoIERhdG Z9VP43EJ27nDZii0A0iPM 2O3LyVCMwsprj qehhiKM0VSPeYYVuxL28W d6bwYqvTy1tEYLlPXU9HH CzbEOiD5OitE6cCrQiZVJ wCWMuF8QmsQOf YPukV327CFelEnN2SCDth vFfC3SdZBRhpFynKpS9o2 F0Jj1WY9Z5EP71QZ01gHC tw9U9tUM6T5Mp XQFqgrujnaqxoUP9YGQpH OLlrR48Rv6hzVfiAm5vRM YjIDR1QSRuxPQnG3ZjiM5 yOiAjMDAwMDAw N8JykOTjGSlhN501ZJwdL iS5XLGvumEqQ8JzGWJfnI cdLjP8d8W1Ng0ACQx5CT1 4SE72uHXpb2V4 xQV2J2SkVKOmslabcxfkl PY6YMTnISEsqK74Eg9lzY oyCp2oLTRoNYQ9WUYdlJN yQ8OoyA7vHzGd OXDcDECrK8YegQXmLFkwV 415ZWfiNdQ6QKGppqJtD7 LwVGMcvDnoZtG7i6E0Pg6 TLBBvXL96PVM3 eOE4VU46TT33Y8BdKsqdu GFibGU+PHRhYmxlIHdpZH RoPScxMDAlJyBzdHlsZT0 fRk2mEGUsKBCr xDtnlPUpBhWlw6ktPLNbS IdcEV1slPqeA0SdiKQ8WQ Idz2s4Bk62M00rU8AjgBU +TUTjyKC5yXF7 tR6gCwTlOvW3NSckV930T iQnyOPeZsxwr3vel3afbV z6QkS0UDIqzgXmrFzwLTL 6i9TxCn58Q94k IHdpZHRoPSIxNSUiIHZhb Gbhen8kjM9gQd8+PGNvbC L6gMI5qL6zMmAjSiZ1RYk pR712BuJsiBNl Yyntu5uch6mlmAe8CoQcS JHbekMutHvlFAI7l9TuBt 33M9IwhVijg7MvPjj5tf5 0vYYrq4I4nKJ4 O3AqTWPzupkimNVhnUzzS U5sZPTslggzDXVskD6dTE ExJ7c6UdSsAoG6FTujA1M rtwJ8BPElnURv TFxlZIM0C95hq5T1JLHdQ PWkEDI9aQE3iA8jsKoaqj ogbGVmdDsgdmVydGljYWw sNZpoZ440SXKu qXijYLXwnH4qGJHozERql YcnZO5dAPEekhqmXqCIOS FPLMHYQC1QQWBKNIY3O4J pPiw3CUDpyLoy FT6gwODsTQkmLb4vcLwvg AtnYB0sULYmfetjDHRkuC 0zJTSotFKybOayDY0dQOV drdptw044TcGs LVS8DYIibWCkM6GikG8rM bWlRQCuCZPuD4KuoEFtAV luE031CJoeRsV2EDXxgwQ rH4VjOGDeePlv NdU4c9W4Gc9nCY3yZq3oR HJ8JB24MI43jBDxl2C6xJ K6W4DqKJCpjuawxtjtiMI 0TSFdWPEnxY13 eNYyQDckUm5nq3L6r457B GBfNWYjvS70Bf7evWxpKC IwnFQUqG2mrejvf0kguhd gIzAwMDAwMDt0 RUk7AOAhfTmcSnApSBJ7Z nB3EDG8nSGeyI1qfRykul udpM8kBsb+NTQgWWVhcnM 5K1FbDmp1OQPc gRwoRG8odFNpLQrtNz7ck GpteBhtFY3rCLOmpfuvXN TabH3qMOIxcYPtaHnlGB8 xBJLinjrxp320 SaMuQOJ3NHIhfRPpD1Cly G2kQyZfAJOpZDNjN7QygI TdJEeqS124UQfcUpS5LCL vtnZcS5QmRLPq fXukClT4q5R2Tc0DTAibG K66GT52yLZfa9T7oZT3U2 UsJNVgumofmrdtmVV6WKA sQLTcwY49uGTr OGwoDo5kd9B5t958SIVfT ZHhoU97Aw2vbGcrLBLgoO ZZsR1zznaru7aodzxrEjX kXUKbFCr4GEa8 SGRymImeEuBgJBE4RoD5X LU5lYDhcS9yrLtwkrqiuX 9wOyc+QG3zgjdczoQ8BF0 4PT53A5FxTkuv dGFibGU+PHRhYmxlIHdpZ HRoPScxMDAlJyBzdHlsZT 8wWr9cHSAoEXWqzPvxsKG fEbQrh7ooRDMr RUsgOD0psBisD6UubZN0S RMsh4m6Kp17U36wO0WdyL A+WSDywBL8qTO5cZ5pCmP uIvY6QBqoG927 FlFenZTsTdarl9wtu1lzp Nw2QqPeJMHmgqZapMozNO T5z4ZeIp54X46vDKppPZQ oPSIyMCUiIHZh cIrqyr9vxQ2mUw9+PGNvb BA2xAC6gR6hRyEhRgQ9CZ ilI671EsFfeQGiBwvqD77 lF6RsiIF+PHRy Vca5CXAxrNqtGK0zbUHxS GfvMc5oYLY8KoDeSjRiYX rvH5OdYIAauhxumssqhBV 1FUHzEHKwaE81 Gl0qfQeaCt5cCHLpAUI1U YPqmKRsN2FqwX0aKzOsEM AcSJMcO7RbkOGcEOqnK03 0HQpnAmJ0XJNn omDbL5EcKZPnjZlnHuF0n 4K0Ld4WjEythZSrLK3gJo HgKXp5X3OmQqj1SGLecYf jBV8xyKVhFNcm Qv3znQjhbHxjUF7wFHGcu xvdl641TmWvq8jkQQOkmD UuTZqcJRH6L53ig9P8OMU mBLGnMEK1xHJ8 iA5eeIbthkaqmKXeeNjxb rTnzNhkKTnmWFskT351SS IkbBxcFnZALje9P9LvOoe 0TPPyaMagTZ2o pWBaSUvtWt2meRbimEwuT O8aZKVrdzxpo804LvRzw7 kuPSAruTOaAOiiGBP5O40 bb6Z7RLPmVLHs ZBB2mUV8pF4jaYtguylwp GVmdDsgdmVydGljYWwtYW erB021FHZljQuuUi9VHtw 4L7QkQhr4ZXGo dKchJT0yhLTmHMgdEe1id MwucGbtAC3mBWFpqbrmo3 78SePwx4rqHOEbbRHbCZt nNEC8W78gk4M9 WXAcDELjAHQ6hKQ8pR5pb GlnbjogbGVmdDsgdmVydG arLWswVFvsC291CRNcjTp nPlBheWVyOjwv dGQ+VB06qs02U7MkXcytT se0AMSfMDO1bNK9lC2hGU QvAEyom0Q9oPV5Y1MijsO hry7om4beGLLk ZTog (more content not included)... Normal [facility] Workers' Comp Officeon 04-17 Workers' Comp Office [id number]#1 .00CD:127 Normal [facility] Workers' Comp Office [id number]#1 .00CD:127 Normal [facility] Workers' Comp Office [id number]#1 .00CD:127 Normal [facility] Consenton 04-13-2022 Consent [id number]#1 .00CD:127 Normal [facility] Progress Note-Physicianon Progress Note-Physician Patient: DAMIEN FRANK Age: 56 years Sex: Male : 1965 Associated Diagnoses: None Author: Ford Humphreys DO Chief Complaint 04/13/2022 10:24 EDT pt bent over to open a door and hit his head on the door, pt states he felt dizziness, pain and nausea after incident , treated at [facility] ER and CT scan was don, pt is on Eliquis, today pt states he has a mild headache and is taking Tylenol, pt has not been History of Present Illness CC confirmed. 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 Important to note that the patient is treated with life-long eliquis secondary to recurrent left LE DVT. ED evaluation was unremarkable aside from patient report profuse bleeding CT scans are negative. Patient reports some mild struggle with recall since the incident. He denies a history of headaches. He has had a persistent headache with photophobia since the incident. His headache improves slightly with tylenol. Review of Systems Constitutional: Negative except as documented in history of present illness. Health Status Allergies: Allergies (1) Active Reaction Augmentin Acute liver failure Current medications: Home Medications (2) Active Eliquis 5 mg oral tablet metoprolol 25 mg ER Tab 25 mg = 1 tab(s), Oral, BID Physical Examination Vital Signs (last 24 hrs) Last Charted Heart Rate Apical 80 bpm (APR 13:) SBP H 160mmHg (APR 13:) DBP H 100mmHg (APR 13:) Constitutional: Vital signs reviewed; Damien is well nourished, no acute distress Head: abrasion to the top of his scalp, minimal if any bruising, normocephalic Eye: EOMI, normal conjunctiva - YUKO ENT: Moist oral mucosa, external inspection of ears and nose is unremarkable Neck: Trachea is midline, no tenderness Lungs: Clear to auscultation, non-labored respiration - expansion is symmetric Heart: Normal rate and rhythm, normal peripheral perfusion Lymph: Deferred Abd: Deferred : Deferred MSK: Normal gait and station Skin: Warm, dry Neurologic: Awake, alert and oriented, speech is normal, no focal deficits, CN II-XII grossly intact *negative rhomberg Psychiatric: Cooperative, pleasant Impression and Plan Diagnosis Abrasion of scalp (JHT87-FA S00.01XA, Working, Medical). Acute head injury (QAX96-GK S09.90XA, Working, Medical). Concussion (WSD33-MR S06.0XAA, Working, Medical). two days post-injury continues to have headaches with a pressure like feeling behind his eyes given his lack of headache history, I am concerned for concussion I would recommend referral to neurology The patient is motivated to return to work. Off work through the weekend and consider returning to work if his headache has resolved by then. If headache gets worse, recommend emergent treatment. If his symptoms improve and he feels ready to return to work, i would release back to work with a plan to f/u PRN If his symptoms persist, I would to see him back sooner to evaluate his ability to return to work. Driving his machine on a bumpy surface with hard wheels is a risk for a patient with a possible concussion. f/u TBD Normal [facility] Comment on above: Result Comment: Elec tronically Signed By: Ford Humphreys DO\.fartun\Date and Time Signed: 04/13/22 16:58 EDT Discharge Instructionson Discharge Instructions [id number]# 1.00CD:127 Normal [facility] ED Traumaon 04-12-2022 ED Trauma [id number]# 1.00CD:127 Normal [facility] Workers Comp Formson 022 Workers Comp Forms [id number]# 1.00CD:127 Normal [facility] CT Head or Brain w/o Contras ton 04-11-2022 CT Head or Brain w/o Contrast Exam Date/Time: 04/11/2022 18:46 EDT Reason for Exam: Head trauma, mod-severe;Other (please specify) Report IMPRESSION: NEGATIVE NONCONTRAST HEAD CT. EXAM: CT Head or Brain w/o Contrast DATE: 04/11/2022 CLINICAL HISTORY: Head trauma, mod-severe. COMPARISON: None available. TECHNIQUE: Routine. All CT scans at this facility use dose modulation, iterative reconstruction, and/or weight based dosing when appropriate to reduce radiation dose to as low as reasonably achievable. FINDINGS: There is no intracranial hemorrhage, mass effect, midline shift, extra-axial collection, evidence of hydrocephalus, skull fracture, or a recent ischemic infarct identified. There is no significant atrophy, or white matter changes, for age. Mild mucosal thickening is noted within the maxillary and ethmoid sinuses. The mastoid air cells and other visualized paranasal sinuses are essentially clear. FINAL REPORT Dictated: 04/11/2022 6:53 pm Chris Bueno MD Signed (Electronic Signature): 04/11/2022 6:53 pm Signed by: Chris Bueno MD Transcribed by: MEHNAZ Technologist: NELLIE Normal [facility] CT Spine Cervical w/o Contra ston 04-11-2022 CT Spine Cervical w/o Contrast Exam Date/Time: 04/11/2022 18:46 EDT Reason for Exam: Neck trauma, dangerous injury mechanism;Other (please specify) Report IMPRESSION: NO FRACTURE OR EVIDENCE OF CERVICAL SPINE INJURY IDENTIFIED. EXAM: CT Spine Cervical w/o Contrast DATE: 04/11/2022 CLINICAL HISTORY: Neck trauma, dangerous injury mechanism. COMPARISON: None available. TECHNIQUE: Spiral unenhanced images were obtained of the cervical spine, with routine reconstructions performed. All CT scans at this facility use dose modulation, iterative reconstruction, and/or weight based dosing when appropriate to reduce radiation dose to as low as reasonably achievable. FINDINGS: The spine is visualized from the craniovertebral junction through the T2-T3 level. There is no fracture, dislocation, or acute paraspinal soft tissue abnormalities identified. Mild to moderate degenerative changes are present with postoperative changes from previous C6-C7 ACDF. FINAL REPORT Dictated: 04/11/2022 7:01 pm Chris Bueno MD Signed (Electronic Signature): 04/11/2022 7:01 pm Signed by: Chris Bueno MD Transcribed by: MEHNAZ Technologist: NELLIE Normal [facility] Capillary Glucose POCon 03-25 Glucose [Mass/Vol] 104 mg/dL High 55-99 [facility] Comment on above: Result Comment: Sisi sinha Meter Performed By: #### 2 [id number] ####[facility] [id number] [place] [address] Consent for Treatmenton 03-25 Consent for Treatment [id number]#1 .00CD:127 Normal [facility] ED Clinical Summaryon 2021 ED Clinical Summary [address] [address] ED Clinical Summary Person Information Name: DAMIEN FRANK [facility] Age: 56 Years : 1965 Sex: Male Language: Cook Islander PCP: MAYA MATTSON MD Marital Status: Phone: [phone] Visit Id: Visit Reason: Dizziness; Trauma - minor; Closed head injury without LOC; FELL-HIT HEAD-NO LOC/DIZZY/EXTREME HEADACHE Speciality: Acuity: 3 Enc Type: Emergency Med Service: Emergency Arrival: 04/11/2022 17:11:51 Discharge: 04/11/2022 19:44:50 LOS: 000 02:33 Checkin: 04/11/2022 17:11:51 Checkout: 04/11/2022 19:44:50 Dispo Type: Home (Routine DC) EVENTS: Event Name Event Status Request Date/Time Start Date/Time Complete Date/Time Arrive Complete 04/11/2022 17:11:51 04/11/2022 17:11:51 04/11/2022 17:11:51 Document Home Meds Request 04/11/2022 17:11:51 Triage Complete 04/11/2022 17:11:51 04/11/2022 17:18:19 04/11/2022 17:18:19 Bed Assign Complete 04/11/2022 17:15:15 04/11/2022 17:15:15 04/11/2022 17:15:15 Dr Exam Complete 04/11/2022 17:15:15 04/11/2022 17:17:18 04/11/2022 17:17:18 RN Exam Complete 04/11/2022 17:15:15 04/11/2022 18:31:38 04/11/2022 18:31:38 Registration Complete 04/11/2022 17:17:18 04/11/2022 17:56:14 04/11/2022 17:56:14 EKG Complete 04/11/2022 17:17:59 04/11/2022 17:37:24 Trauma III Request 04/11/2022 17:21:23 Meds Admin Complete 04/11/2022 17:23:03 04/11/2022 17:48:00 CT Complete 04/11/2022 17:23:04 04/11/2022 17:31:03 04/11/2022 18:46:37 Pending Labs Complete 04/11/2022 17:29:06 04/11/2022 17:29:06 04/11/2022 17:29:07 Reg Complete Request 04/11/2022 17:56:14 Trauma III Request 04/11/2022 18:42:40 Discharge Complete 04/11/2022 19:27:42 04/11/2022 19:44:56 04/11/2022 19:44:56 Meds Admin Complete 04/11/2022 19:28:34 04/11/2022 19:41:17 Transfer Complete 04/11/2022 19:44:56 04/11/2022 19:44:56 04/11/2022 19:44:56 ADDRESS: [address] [place] [address] [address] [facility] [address] PHYS DOC NOTES: Addendum by Felicia MILLER Dieter on April 11, 2022 19:07:31 EDT MEDICAL INFORMATION: Prescriptions Given: Medications to Continue with No Changes Other Medications metoprolol (metoprolol 25 mg ER Tab) 1 Tablets By Mouth 2 times a day. PATIENT EDUCATION INFORMATION: Instructions: Head Injury, Adult; Abrasion, Qbbq-gc-Uhic Follow up: With: Address: When: At The Pool: [facility] [phone] In 3 days 04/14/2022 With: Address: When: MAYA MATTSON [address] [place] [address] [phone] [employer] (0) In 3 days DIAGNOSIS: Head injury; Scalp abrasion Normal [facility] ED Note-Physicianon 04-11-20 ED Note-Physician Basic Information Time Seen: Felicia MILLERDieter 04/11/2022 17:17 Chief Complaint pt reports hitting head at work, no loc. on thinners. pt states he feels dizyz now. lac to head History of Present Illness 56 male presents emergency department with head injury. Patient states just prior to arrival around 1530 he was at work when he bent over to pick something up and struck his head on the right crown and parietal region of the head. Patient states he stood up and then felt very dizzy and had to sit down. He did not fall at that time denies any other injuries. He does have a headache he does not believe he lost consciousness. Patient does take Eliquis for recent diagnosis of a DVT in the left lower extremity. No changes to speech or vision no numbness or weakness to the upper or lower extremities. Last tetanus is unknown as the patient does have an abrasion on his head. No other aggravating or relieving factors no other associated symptoms no other prior treatments or complaints. Family: Reviewed and noncontributory Social: lives at home Review of systems negative unless otherwise specified in the HPI. Physical Exam Vitals & Measurements T: 36.9 ?C(Tympanic) HR: 61(Peripheral) RR: 20 SpO2: 95% HT: 180 cm WT: 160 kg BMI: 49.38 General: The patient appears well and in no apparent distress. Patient is resting comfortably on cart. Skin: Warm, dry, no pallor noted. Small abrasion noted on the right parietal scalp no laceration appreciated Head: Normocephalic, atraumatic abrasion as described above. Neck: No JVD no tenderness to palpation no step-off no crepitus appreciated. No pain with range of motion. No tenderness in the paraspinal musculature. Eye: PERRLA, EOMI ENT: Moist mucus membranes Cardiovascular: Regular rate normal peripheral perfusion Respiratory: No respiratory distress no accessory muscle use no obvious audible wheezing Chest Wall: no deformity Musculoskeletal: normal ROM, no deformity, no swelling Neurological: A&O moves all extremities equal strength and symmetry Psychiatric: Cooperative and appropriate Medical Decision Making Tetanus is updated here. CT scans of the head and cervical spine were ordered and pending and ultimately patient is signed out to the oncoming physician for final disposition and treatment plan. Assessment/Plan Head injury (S09.90XA: Unspecified injury of head, initial encounter) Scalp abrasion (S00.01XA: Abrasion of scalp, initial encounter) Orders: tetanus/diphtheria/pe rtussis, acel (Tdap), 0.5 mL, Injection, Intramuscular-Immuniz ation, Once, Stop date 04/11/22 17:22:00 EDT, STAT, Start date 04/11/22 17:22:[address] Head or Brain w/o Contrast CT Spine Cervical w/o Contrast Medications Administered Given tetanus/diphtheria/pe rtussis, acel (Tdap) 5 units-2.5 units-18.5 mcg/0.5 mL intramuscular suspension, 0.5 mL, Intramuscular-Immuniz ation diphtheria/pertussis, acel/tetanus adult, Intramuscular-Immuniz ation Disposition Plan Discharge Prescription List Prescriptions No active prescription medications Follow-up No qualifying data available Problem List/Past Medical History Ongoing No qualifying data Historical No qualifying data Medications Inpatient tetanus/diphtheria/pe rtussis, acel (Tdap) 5 units-2.5 units-18.5 mcg/0.5 mL intramuscular suspensio, 0.5 mL, Intramuscular-Immuniz ation, Once Home metoprolol 25 mg ER Tab, 25 mg= 1 tab(s), Oral, BID Allergies Augmentin (Acute liver failure) Lab Results No qualifying data available. Diagnostic Results No qualifying data available. CT of the brain and cervical spine read by the radiologist as no acute pathology. Tetanus is updated here. Patient is treated with medication for pain discharged home to follow-up in the outpatient setting return to ER symptoms should change or worsen. Normal [facility] Comment on above: Result Comment: Elec tronically Signed By: Dieter Duarte DO\.br\Date and Time Signed: 04/11/22 19:27 EDT ED Patient Education Noteon 04-11-2022 ED Patient Education Note Dermatology Abrasion An abrasion is a cut or a scrape on the surface of your skin. An abrasion does not go through all the layers of your skin. It is important to take good care of your abrasion to prevent infection. Follow these instructions at home: Medicines ? Take or apply xyto-pao-ohcbxdc and prescription medicines only as told by your doctor. ? If you were prescribed an antibiotic medicine, apply it as told by your doctor. Do not stop using the antibiotic even if you start to feel better. Wound care ? Clean the wound 2?3 times a day or as often as told by your doctor. To do this: 1. Wash the wound with mild soap and water. 2. Rinse off the soap. 3. Pat a clean towel on the wound to dry it. Do not rub it. ? Keep the bandage (dressing) clean and dry as told by your doctor. ? Follow instructions from your doctor about how to take care of your wound. Make sure you: ? Wash your hands with soap and water before you change your bandage. If you cannot use soap and water, use hand lottery office manager. ? Change your bandage as told by your doctor. ? Check your wound every day for signs of infection. Check for: ? Redness, swelling, or pain. ? Fluid or blood. ? Warmth. ? Pus or a bad smell. ? If directed, put ice on the injured area. To do this: ? Put ice in a plastic bag. ? Place a towel between your skin and the bag. ? Leave the ice on for 20 minutes, 2?3 times a day. General instructions ? Do not take baths, swim, or use a hot tub until your doctor says it is okay. ? If there is swelling, raise (elevate) the injured area above the level of your heart while you are sitting or lying down. ? Keep all follow-up visits as told by your doctor. This is important. Contact a doctor if: ? You were given a tetanus shot, and you have any of these where the needle went in: ? Swelling. ? Very bad pain. ? Redness. ? Bleeding. ? You have a lot of pain, and medicine does not help. ? You have any of these at the site of the wound: ? More redness. ? More swelling. ? More pain. Get help right away if: ? You have a red streak going away from your wound. ? You have a fever. ? You have fluid, blood, or pus coming from your wound. ? There is a bad smell coming from your wound or bandage. Summary ? An abrasion is a cut or a scrape on the surface of your skin. ? Take good care of your abrasion so it does not get infected. ? Clean the wound with mild soap and water, and change your bandage as told by your doctor. ? Call your doctor if you have redness, swelling, or more pain in your wound. ? Get help right away if you have a fever or if you have fluid, blood, pus, a bad smell, or a red streak coming from the wound. This information is not intended to replace advice given to you by your health care provider. Make sure you discuss any questions you have with your health care provider. Document Released: 11/27/2008 Document Revised: 05/24/2018 Document Reviewed: 01/31/2018 [employer] Patient Education ? 2020 [employer] Neurology Head Injury, Adult There are many types of head injuries. Head injuries can be as minor as a bump, or they can be a serious medical issue. More severe head injuries include: ? A jarring injury to the brain (concussion). ? A bruise (contusion) of the brain. This means there is bleeding in the brain that can cause swelling. ? A cracked skull (skull fracture). ? Bleeding in the brain that collects, clots, and forms a bump (hematoma). After a head injury, most problems occur within the first 24 hours, but side effects may occur up to 7?10 days after the injury. It is important to watch your condition for any changes. You may need to be observed in the emergency department or urgent care, or you may be admitted to the hospital. What are the causes? There are many possible causes of a head injury. A serious head injury may be caused by a car accident, bicycle or motorcycle accidents, sports injuries, and falls. What are the symptoms? Symptoms of a head injury include a contusion, bump, or bleeding at the site of the injury. Other physical symptoms may include: ? Headache. ? Nausea or vomiting. ? Dizziness. ? Feeling tired. ? Being uncomfortable around bright lights or loud noises. ? Seizures. ? Trouble being awakened. ? Fainting. Mental or emotional symptoms may include: ? Irritability. ? Confusion and memory problems. ? Poor attention and concentration. ? Changes in eating or sleeping habits. ? Anxiety or depression. How is this diagnosed? This condition can usually be diagnosed based on your symptoms, a description of the injury, and a physical exam. You may also have imaging tests done, such as a CT scan or MRI. How is this treated? Treatment for this condition depends on the severity and type of injury you have. The main goal of treatment is to prevent complications and to allow the brain t (more content not included)... Normal [facility] ED Patient Summaryon 022 ED Patient Summary [address] [address] Patient Discharge Instructions Person Information Name: DAMIEN FRANK Age: 56 Years Arrival Date: 04/11/2022 17:11:51 Discharge Diagnosis: Head injury; Scalp abrasion Primary Care Physician: MAYA MATTSON MD Provider Information Primary Provider: Dieter Duarte DO Advanced Fiberglass Laminator:None The exam and treatment you received in the Emergency Department were for an urgent problem and are not intended as complete care. It is important that you follow up with a doctor, nurse practitioner, or physician?s customer relations assistant for ongoing care. If your symptoms become worse or you do not improve as expected and you are unable to reach your usual health care provider, you should return to the Emergency Department. We are available 24 hours a day. DAMIEN FRANK has been given the following list of patient education materials, prescriptions and follow-up instructions: Follow-up Instructions: With: Address: When: [facility]: [facility] [phone] In 3 days 04/14/2022 With: Address: When: MAYA MATTSON [address] [place] [address] [phone] [facility] () In 3 days In the event that this physician does not participate in your insurance network, please consult with your insurance company to find a nearby participating provider. Patient Education Materials: Head Injury, Adult; Abrasion, Ggrt-fq-Tefl A MESSAGE TO ALL PATIENTS REGARDING OPIOIDS PRESCRIPTION OPIOIDS: WHAT YOU NEED TO KNOW Prescription opioids can be used to help relieve ohmdzfas-jx-jncztf pain and are often prescribed following a surgery or injury, or for certain health conditions. These medications can be an important part of the treatment but also come with serious risks. It is important to work with your healthcare provider to make sure you are getting the safest, most effective care. WHAT ARE THE RISKS AND SIDE EFFECTS OF OPIOID USE? Prescription opioids carry serious risks of addiction and overdose, especially with prolonged use. An opioid overdose, often marked by slowed breathing, can cause sudden . The use of prescription opioids can have a number of side effects as well, even when taken as directed: ? Tolerance?meaning you might need to take more of the medication for the same pain relief ? Physical dependence?meaning you have symptoms of withdrawal when a medication is stopped ? Increased sensitivity to pain ? Constipation ? Nausea, vomiting, and dry mouth ? Sleepiness and dizziness ? Confusion ? Depression ? Low levels of testosterone that can result in lower sex drive, energy, and strength ? Itching and sweating RISKS ARE GREATER WITH: ? History of drug misuse, substance use disorder, or overdose ? Mental health conditions (such as depression or anxiety) ? Sleep apnea ? Older age (65 years and older) ? Avoid alcohol while taking prescription opioids. Also, unless specifically advised by your health care provider, medications to avoid include: ? Benzodiazepines (such as Xanax or Valium) ? Muscle relaxants (such as Soma or Flexeril) ? Hypnotics (such as Ambien or Lunesta) ? Other prescription opioids KNOW YOUR OPTIONS Talk to your health care provider about ways to manage your pain that don?t involve prescription opioids. Some of these options may actually work better and have fewer risks and side effects. Options may include: ? Pain relievers such as acetaminophen, ibuprofen, and naproxen ? Some medication that are also used for depression or seizures ? Physical therapy and exercise ? Cognitive behavioral therapy, a psychological, goal-directed approach, in which patients learn how to modify physical, behavioral, and emotional triggers of pain and stress. IF YOU ARE PRESCRIBED OPIOIDS FOR PAIN: ? Never take opioids in greater amounts or more often than prescribed. ? Follow up with your primary health care provider. o Work together to create a plan on how to manage your pain. o Talk about ways to help manage your pain that don?t involve prescription opioids. o Talk about any and all concerns and side effects. ? Help prevent misuse and abuse o Never sell or share prescription opioids. o Never use another person?s prescription opioids. ? Store prescription opioids in a secure place and out of reach of others (this may include visitors, children, friends, and family). ? Safely dispose of unused prescription opioids: Find your community drug take-back program or your pharmacy mail-back program, or flush them down the toilet, following guidance from the Food and Drug Administration (www.fda.gov/Drugs/Re sourcesForYou). ? Visit www.cdc.gov/drugoverd ose to learn about the risks of opioids abuse and overdose. ? If you believe you may be struggling with addiction, tell your health child care center assistant director and a (more content not included)... Normal [facility] Vaccinationson 04-11-2022 Vaccinations [id number]# 1.00CD:127 Normal [facility] US Venous, Unilat, Lower Ext Lefton 08-01-2021 US Venous, Unilat, Lower Ext Left FINDINGS: Comparison is made with the prior examination of April 29, 2021. Recanalization of flow through the popliteal vein with hyperechogenic thrombus, reduced volume (nonocclussive). Normal superficial and common femoral veins. IMPRESSION: Popliteal venous thrombus recanalization, chronic changes. No complete occlusion. Report reported and signed by Shaun Dunlap on 08/01/2021 1038 Normal [facility] Outside Plant Engineer MR knee LT wo conon 04-19-20 MR knee LT wo con [facility] [place] [address] [place] [id number] MRI Report Signed Patient: Damien Frank MR#: [id number] : 1965 Acct:[id number] Age/Sex: 55 / M ADM Date: 04/19/21 Loc: [facility] Room: Type: [facility] Attending Dr: Cortez Hall PA-C Ordering Provider: Cortez Hall PA-C Date of Service: 04/19/21 MR/MR knee LT wo con: M23.92 INTERNAL DERANGEMENT OF LEFT KNEE Z86.59 CLAUSTROPHOB Copies to: Cortez Hall PA-C MR knee LT wo con 04/19/2021 2:55 PM SIGNS AND SYMPTOMS: Posterior left knee pain and instability. PROTOCOL: Multiplanar multisequence MR images of the left knee were obtained without contrast. COMPARISON: Radiographs from 03/30/2021 FINDINGS: Fluid: There is a moderate joint effusion. There is a 0.6 x 0.4 x 3.2 cm Piper's cyst. Medial compartment: Medial meniscus: Intact. There is partial extrusion of the medial meniscus from the joint space. Medial collateral ligament: Intact. Medial femoral condyle cartilage: There is mild partial thickness chondromalacia.. Medial tibial plateau cartilage: There is mild partial thickness chondral malacia.. Lateral compartment: Lateral meniscus: Intact.. Lateral collateral ligament: Intact.. Lateral femoral condyle cartilage: Preserved. Lateral tibial plateau cartilage: Preserved. Posterolateral corner: Popliteus tendon: Intact. Popliteofibular ligament: Intact. Proximal tibiofibular joint: Preserved. Anterior compartment: Alignment: Normal. Quadriceps tendon: Intact. Patellar tendon: Intact. Retinaculum: Medial intact. Lateral intact. Patellar cartilage: There is partial thickness chondromalacia along the lateral articular facet.. Trochlea: There is partial to full thickness chondromalacia along the lateral articular facet of the trochlea with subchondral cystic change. . Plica: None Hoffa fat pad: Normal. Intercondylar compartment: Anterior cruciate ligament: Mucoid degeneration is noted predominantly along the base of the anterior cruciate ligament. There are a few fibers along the posterior and inferior margin of the anterior cruciate ligament which appear to layer dependently suggesting a partial thickness tear of the anterior cruciate ligament. Posterior cruciate ligament: There is increased T2 signal at the base of the posterior cruciate ligament at the insertion along the posterior aspect of the tibia suggesting tendinopathy versus partial-thickness tear.. Bones (other than subarticular marrow): There is marrow edema along the insertion of the posterior cruciate ligament along the posterior aspect of the tibia. There is marrow edema along the lateral aspect of the patella. Muscles: Normal. Vessels: Normal. Nerves: Normal. MR/MR knee LT wo con IMPRESSION: Findings suggest a partial thickness tear of the posterior and inferior aspect of the anterior cruciate ligament with mild mucoid degeneration. There is edema at the insertion of the posterior cruciate ligament suggesting a partial thickness tear. There is corresponding edema within the adjacent posterior aspect of the tibia. There is a moderate joint effusion with a small Piper's cyst. There is chondromalacia in the patellofemoral joint space and medial weightbearing joint space with subcortical cystic change along the lateral aspect of the trochlear. Impression dictated by: Guillermo Recio M.D.04/19/2021 5:39 PM Dictation Location: [place] [address] Transcribed By: [facility] 04/19/211738 Dictated By: Guillermo Recio II, MD 04/19/211729 Signed By: 04/19/211738 [facility] Vital Signs Date Time Vital Sign Value Performing Clinician Facility 09-20-2023 08:50-0400 Body height 180.3 cm Kathy Lopez MD Work Phone: [facility] 09-20-2023 08:50-0400 Body mass index (BMI) [Ratio] 47.7 kg/m2 Kathy Lopez MD Work Phone: [facility] 09-20-2023 08:50-0400 Body weight 155.13 kg Kathy Lopez MD Work Phone: [facility] 09-20-2023 08:50-0400 Diastolic blood pressure 72 mm[Hg] Kathy Lopez MD Work Phone: [facility] 09-20-2023 08:50-0400 Heart rate 63 /min Kathy Lopez MD Work Phone: [facility] 09-20-2023 08:50-0400 SaO2% (BldA) [Mass fraction] 94 % Kathy Lopez MD Work Phone: [facility] 09-20-2023 08:50-0400 Systolic blood pressure 136 mm[Hg] Kathy Lopez MD Work Phone: [facility] 06-22-2023 11:21-0500 Body height 180.3 cm Eddie Dougherty MD Work Phone: [facility] 06-22-2023 11:21-0500 Body mass index (BMI) [Ratio] 50.01 kg/m2 Eddie Dougherty MD Work Phone: [facility] 06-22-2023 11:21-0500 Body weight 162.66 kg Eddie Dougherty MD Work Phone: [facility] 06-22-2023 11:21-0500 Diastolic blood pressure 80 mm[Hg] Eddie Dougherty MD Work Phone: [facility] 06-22-2023 11:21-0500 Heart rate 55 /min Eddie Dougherty MD Work Phone: [facility] 06-22-2023 11:21-0500 SaO2% (BldA) [Mass fraction] 99 % Eddie Dougherty MD Work Phone: [facility] [employer] 06-22-2023 11:21-0500 Systolic blood pressure 126 mm[Hg] Eddie Dougherty MD Work Phone: [facility] 08-22-2021 14:45-0500 Body height 180.34 cm Cortez Varma Other [facility] Other 08-22-2021 14:45-0500 Body mass index (BMI) [Ratio] 50.9 kg/m2 Cortez Kojo Other [facility] Other 08-22-2021 14:45-0500 Body temperature 98.9 [degF] Cortez Varma Other [facility] Other 08-22-2021 14:45-0500 Body weight 165.56 kg Cortez Varma Other [facility] Other 08-22-2021 14:45-0500 Diastolic blood pressure 62 mm[Hg] Cortez Varma Other [facility] Other 08-22-2021 14:45-0500 SaO2% (BldA) [Mass fraction] 96 % Cortez Varma Other [facility] Other 08-22-2021 14:45-0500 Systolic blood pressure 140 mm[Hg] Cortez Varma Other [facility] Other Encounters Encounter Date Encounter Type Care Provider Facility Start: 11-14-2023 End: 11-14-2023 ambulatory MAYUR BUTLER [facility] Start: 10-22-2023 End: 10-24-2023 ambulatory [facility] Start: 10-18-2023 End: 10-24-2023 ambulatory [facility] Start: 10-17-2023 End: 10-24-2023 ambulatory [facility] Start: 10-15-2023 End: 10-24-2023 [facility] Start: 10-11-2023 End: 10-24-2023 [facility] Start: 10-10-2023 End: 10-24-2023 [facility] Start: 10-08-2023 End: 10-24-2023 [facility] Start: 10-04-2023 End: 10-24-2023 [facility] Start: 10-03-2023 End: 10-24-2023 [facility] Start: 10-01-2023 End: 10-24-2023 [facility] Start: 09-27-2023 End: 10-24-2023 [facility] Start: 09-26-2023 End: 10-24-2023 [facility] Start: 09-24-2023 End: 10-24-2023 Clinical Support Andre Osborne MD Work Phone: [facility] Start: 09-20-2023 End: 09-24-2023 [facility] Start: 09-20-2023 End: 09-20-2023 Office outpatient visit 15 minutes Kathy Lopez MD Work Phone: [facility] Comment on above: ACS (acute coronary syndrome) ([facility]) (Primary Dx) Start: 09-19-2023 Telephone encounter Maya Hubbard CMA [facility] Start: 09-19-2023 End: 09-19-2023 ambulatory [facility] Start: 09-19-2023 End: 09-19-2023 Patient encounter procedure Andre Osborne MD Work Phone: [facility] Comment on above: Acute coronary syndr ome ([facility]) Start: 09-17-2023 End: 09-17-2023 ambulatory [facility] Start: 09-17-2023 End: 09-17-2023 Patient encounter procedure Andre Osborne MD Work Phone: [facility] Comment on above: Acute coronary syndr ome ([facility]) Start: 09-13-2023 End: 09-13-2023 ambulatory [facility] Start: 09-13-2023 End: 09-13-2023 Patient encounter procedure Andre Osborne MD Work Phone: [facility] Comment on above: Acute coronary syndr ome ([facility]) Start: 09-12-2023 End: 09-12-2023 [facility] Start: 09-10-2023 End: 09-24-2023 [facility] Start: 09-06-2023 End: 09-06-2023 [facility] Start: 09-06-2023 End: 09-06-2023 Patient encounter procedure Andre Osborne MD Work Phone: [facility] Comment on above: Acute coronary syndr ome ([facility]) Start: 09-05-2023 End: 09-05-2023 [facility] Start: 09-05-2023 End: 09-05-2023 Patient encounter procedure Andre Osborne MD Work Phone: [facility] Comment on above: Acute coronary syndr ome ([facility]) Start: 09-03-2023 End: 09-24-2023 ambulatory [facility] Start: 08-30-2023 End: 08-30-2023 [facility] Start: 08-30-2023 End: 08-30-2023 Patient encounter procedure Andre Osborne MD Work Phone: [facility] Comment on above: Acute coronary syndr ome ([facility]) Start: 08-29-2023 End: 08-29-2023 [facility] Jodi [facility] Start: 08-29-2023 End: 08-29-2023 Patient encounter procedure Andre Osborne MD Work Phone: [facility] Comment on above: Acute coronary syndr ome ([facility]) Start: 08-27-2023 End: 09-24-2023 [facility] Jodi [facility] Start: 08-23-2023 End: 08-23-2023 [facility] Start: 08-23-2023 End: 08-23-2023 Patient encounter procedure Andre Osborne MD Work Phone: [facility] Comment on above: Acute coronary syndr ome ([facility]) Start: 08-22-2023 End: 08-22-2023 [facility] Jodi [facility] Start: 08-22-2023 End: 08-22-2023 Patient encounter procedure Andre Osborne MD Work Phone: [facility] Comment on above: Acute coronary syndr ome ([facility]) Start: 08-20-2023 End: 08-20-2023 [facility] R [facility] Start: 08-16-2023 End: 08-16-2023 [facility] R [facility] Start: 08-15-2023 End: 08-15-2023 ambulatory [facility] Start: 08-15-2023 End: 08-15-2023 Patient encounter procedure Andre Osborne MD Work Phone: [facility] Comment on above: Acute coronary syndr ome ([facility]) Start: 08-13-2023 End: 08-13-2023 ambulatory ANDRE Jodi OSBORNE [facility] Start: 08-13-2023 End: 08-13-2023 Patient encounter procedure nAdre Osborne MD Work Phone: [facility] Comment on above: Acute coronary syndr ome ([facility]) Start: 08-09-2023 End: 08-09-2023 ambulatory [place] [facility] Start: 08-09-2023 End: 08-09-2023 Patient encounter procedure Andre Osborne MD Work Phone: [facility] Comment on above: Acute coronary syndr ome ([facility]) Start: 08-08-2023 End: 08-08-2023 [facility] Start: 08-06-2023 End: 08-06-2023 [facility] Start: 08-06-2023 End: 08-06-2023 Patient encounter procedure Andre Osborne MD Work Phone: [facility] Comment on above: Acute coronary syndr ome ([facility]) Start: 08-02-2023 End: 08-02-2023 [facility] Jodi [facility] Start: 08-02-2023 End: 08-02-2023 Patient encounter procedure Andre Osborne MD Work Phone: [facility] Comment on above: Acute coronary syndr ome ([facility]) Start: 08-01-2023 End: 08-01-2023 ambulatory [place] [facility] Start: 08-01-2023 End: 08-01-2023 Patient encounter procedure Ander Osborne MD Work Phone: [facility] Comment on above: Acute coronary syndr ome ([facility]) Start: 07-30-2023 End: 07-30-2023 [facility] Start: 07-26-2023 End: 07-26-2023 ambulatory [place] [facility] Start: 07-26-2023 End: 07-26-2023 Patient encounter procedure Andre Osborne MD Work Phone: [facility] Comment on above: Acute coronary syndr ome ([facility]) Start: 07-25-2023 End: 07-25-2023 ambulatory [facility] Start: 07-25-2023 End: 07-25-2023 Patient encounter procedure Andre Osborne MD Work Phone: [facility] Comment on above: Acute coronary syndr ome ([facility]) Start: 07-23-2023 End: 07-23-2023 [facility] Start: 07-19-2023 End: 07-26-2023 ambulatory MAYA ARTHURAN Not Available Start: 07-18-2023 End: 07-18-2023 [facility] Start: 07-18-2023 End: 07-18-2023 Patient encounter procedure Andre Osborne MD Work Phone: [facility] Comment on above: Acute coronary syndr ome ([facility]) Start: 07-16-2023 End: 07-16-2023 [facility] J[facility] Start: 07-12-2023 End: 07-12-2023 ambulatory [facility] Start: 07-12-2023 End: 07-12-2023 Patient encounter procedure Andre Osborne MD Work Phone: [facility] Comment on above: Acute coronary syndr ome ([facility]) Start: 07-11-2023 End: 07-11-2023 ambulatory [facility] Start: 07-11-2023 End: 07-11-2023 Patient encounter procedure Andre Osborne MD Work Phone: [facility] Comment on above: Acute coronary syndr ome ([facility]) Start: 07-09-2023 End: 07-09-2023 ambulatory [facility] Start: 07-09-2023 End: 07-09-2023 Patient encounter procedure Andre Osborne MD Work Phone: [facility] Comment on above: Acute coronary syndr ome ([facility]) Start: 07-06-2023 End: 07-06-2023 ambulatory [facility] Start: 06-28-2023 End: 06-28-2023 ambulatory MAYA MATTSON Not Available Start: 06-27-2023 Orders Only [facility] Comment on above: SOB (shortness of br eath) Start: 06-22-2023 End: 06-23-2023 ambulatory MAYA MATTSON Not Available Start: 06-22-2023 End: 06-22-2023 ambulatory MAYA MATTSON Not Available Start: 06-22-2023 End: 06-22-2023 ambulatory [facility] Start: 06-22-2023 End: 06-22-2023 Office outpatient visit 15 minutes Eddie Dougherty MD Work Phone: [facility] Comment on above: S/P right coronary a rtery (RCA) stent placement (Primary Dx); Essential hypertension; Pure hypercholesterolemia; History of DVT (deep vein thrombosis); Morbid obesity with BMI of 50.0-59.9, adult ([facility]); SOB (shortness of breath) Start: 06-21-2023 Telephone encounter [facility] Start: 06-19-2023 End: [facility] Start: 06-15-2023 End: 06-15-2023 ambulatory MAYA MATTSON Not Available Start: 06-10-2023 ambulatory [facility] Start: 06-05-2023 End: 06-05-2023 ambulatory MAYA MATTSON Not Available Start: 05-21-2023 End: 05-22-2023 ambulatory Elayne Arreola MD Facility:[facility] Start: 04-23-2023 End: 04-24-2023 ambulatory Elayne Arreola MD Facility:[facility] Start: 04-13-2022 ambulatory Ford Oreilly [facility] Start: 04-11-2022 End: 04-11-2022 Emergency department patient visit Dieter Duarte Facility:[facility] Start: 04-11-2022 End: 04-12-2022 ambulatory Diego CASTRO Facility:[facility] Start: 09-01-2021 End: 09-01-2021 ambulatory Cortez Varma Other [facility] Other Start: 09-01-2021 Telephone encounter Cortez Vazquez rg [facility] Start: 08-22-2021 End: 08-22-2021 ambulatory Cortez Varma Other [facility] Other Start: 08-22-2021 Office outpatient ne w 45 minutes Cortez Varma [facility] OutPt Procedures Date Procedure Procedure Detail Performing Clinician Start: 09-20-2023 Follow-up visit Follow-up KATHY LOPEZ Start: 09-17-2023 Gluc bld gluc mntr d ev cleared fda spec home use Andre Osborne MD Work Phone: Start: 09-05-2023 Gluc bld gluc mntr d ev cleared fda spec home use Andre Osborne MD Work Phone: Start: 07-26-2023 Gluc bld gluc mntr d ev cleared fda spec home use Andre Osborne MD Work Phone: Start: 07-25-2023 Gluc bld gluc mntr d ev cleared fda spec home use Andre Osborne MD Work Phone: Start: 07-25-2023 Gluc bld gluc mntr d ev cleared fda spec home use Andre Osborne MD Work Phone: Start: 07-19-2023 Microalbumin [Mass/volume] in Urine by Test strip [facility] Start: 07-18-2023 End: 07-18-2023 Gluc bld gluc mntr dev cleared fda spec home use Andre Osborne MD Work Phone: Start: 07-12-2023 End: 07-12-2023 Gluc bld gluc mntr dev cleared fda spec home use Andre Osborne MD Work Phone: Start: 07-11-2023 End: 07-11-2023 Gluc bld gluc mntr dev cleared fda spec home use Andre Osborne MD Work Phone: Start: 07-09-2023 End: 07-09-2023 Gluc bld gluc mntr dev cleared fda spec home use Andre Osborne MD Work Phone: Start: 06-22-2023 Natriuretic peptide Tony Dougherty MD Work Phone: History of placement of stent for coronary artery disease S/P right coronary artery (RCA) stent placement Eddie Dougherty MD Work Phone: Plan of Treatment Date Care Activity Detail Author Start: 04-11-2032 DTaP,Tdap and Td Vac cines (8 - Td or Tdap) DTaP,Tdap and Td Vaccines (8 - Td or Tdap) [facility] Start: 09-19-2024 Adult BMI Screening Adult BMI Screen ing [facility] Start: 09-19-2024 Tobacco Screening Tobacco Screening [facility] Start: 07-19-2024 Urine screening for protein Urine Microalbumin [facility] Start: 06-22-2024 Adult BMI Screening Adult BMI Screen ing [facility] Start: 06-22-2024 Tobacco Screening Tobacco Screening [facility] Start: 06-11-2024 Adult BMI Screening Adult BMI Screen ing [facility] Start: 03-28-2024 End: 03-28-2024 Patient encounter procedure 03/28/2024 8:30 AM EDT Office Visit [facility] [address] [place] [address] [place] [phone] Eddie Dougherty MD [address] [place] [address] [facility] Start: 02-24-2024 Influenza vaccination Influenza Vacc ine [facility] Start: 10-10-2023 End: 10-10-2023 Clinical Support 10/10/2023 8:00 AM EDT Clinical Support [facility] [address] [place] [address] Andre Osborne MD [address] [place] [address] [facility] Start: 10-08-2023 End: 10-08-2023 Patient encounter procedure [facility] Start: 10-04-2023 Adult BMI Follow Up Plan Adult BMI F ollow Up Plan [facility] Start: 10-04-2023 Tobacco Screening Tobacco Screening [facility] Start: 10-04-2023 End: 10-04-2023 Patient encounter procedure [facility] Start: 10-03-2023 End: 10-03-2023 Patient encounter procedure [facility] Start: 10-01-2023 End: 10-01-2023 Patient encounter procedure [facility] Start: 09-27-2023 End: 09-27-2023 Patient encounter procedure 09/27/2023 9:00 AM EDT Office Visit [facility] [address] [place] [address] Andre Osborne MD [address] [place] [address] [facility] Start: 09-26-2023 End: 09-26-2023 Patient encounter procedure [facility] Start: 09-24-2023 End: 09-24-2023 Patient encounter procedure [facility] Start: 09-20-2023 End: 09-20-2023 Patient encounter procedure [facility] Start: 09-19-2023 End: 09-19-2023 Patient encounter procedure 09/19/2023 9:00 AM EDT Office Visit [facility] [address] [place] [id number] Andre Osborne MD [address] [place] [address] [facility] Start: 09-17-2023 End: 09-17-2023 Patient encounter procedure 09/17/2023 9:00 AM EDT Office Visit [facility] [address] [place] [address] Andre Osborne MD [address] [place] [address] [facility] Start: 09-13-2023 End: 09-13-2023 Patient encounter procedure 09/13/2023 9:00 AM EDT Office Visit [facility] [address] [place] [address] Andre Osborne MD [address] [place] [address] [facility] Start: 09-12-2023 End: 09-12-2023 Patient encounter procedure 09/12/2023 9:00 AM EDT Office Visit [facility] [address] [place] [address] Andre Osborne MD [address] [place] [address] [facility] Start: 09-10-2023 End: 09-10-2023 Patient encounter procedure 09/10/2023 9:00 AM EDT Office Visit [facility] [address] [place] [address] Andre Osborne MD [address] [place] [address] [facility] Start: 09-06-2023 End: 09-06-2023 Patient encounter procedure 09/06/2023 9:00 AM EDT Office Visit [facility] [address] [place] [address] Andre Osborne MD [address] [place] [address] [facility] Start: 09-05-2023 End: 09-05-2023 Patient encounter procedure 09/05/2023 9:00 AM EDT Office Visit [facility] [address] [place] [address] Andre Osborne MD [address] [place] [address] [facility] Start: 09-03-2023 End: 09-03-2023 Patient encounter procedure 09/03/2023 9:00 AM EDT Office Visit [facility] [address] [place] [address] Andre Osborne MD [address] [place] [address] [facility] Start: 08-30-2023 End: 08-30-2023 Patient encounter procedure 08/30/2023 9:00 AM EST Office Visit [facility] [address] [place] [address] Andre Osborne MD [facility] [place] [address] [facility] Start: 08-29-2023 End: 08-29-2023 Patient encounter procedure 08/29/2023 9:00 AM EST Office Visit [facility] [address] [place] [address] Andre Osborne MD [address] [place] [address] [facility] Start: 08-27-2023 End: 08-27-2023 Patient encounter procedure 08/27/2023 9:00 AM EST Office Visit [facility] [address] [place] [address] Andre Osborne MD [address] [place] [address] [facility] Start: 08-23-2023 End: 08-23-2023 Patient encounter procedure 08/23/2023 9:00 AM EST Office Visit [facility] [address] [place] [address] Andre Osborne MD [address] [place] [address] [facility] Start: 08-22-2023 End: 08-22-2023 Patient encounter procedure 08/22/2023 9:00 AM EST Office Visit [facility] [address] [place] [address] Andre Osborne MD [address] [place] [address] [facility] Start: 08-20-2023 End: 08-20-2023 Patient encounter procedure 08/20/2023 9:00 AM EST Office Visit [facility] [address] [place] [address] Andre Osborne MD [facility] [place] [address] [facility] Start: 08-16-2023 End: 08-16-2023 Patient encounter procedure 08/16/2023 9:00 AM EST Office Visit [facility] [address] [facility] [address] Andre Osborne MD [address] [place] [address] [facility] Start: 08-15-2023 End: 08-15-2023 Patient encounter procedure 08/15/2023 9:00 AM EST Office Visit [facility] [address] [place] [address] Andre Osborne MD [address] [place] [address] [facility] Start: 08-13-2023 End: 08-13-2023 Patient encounter procedure 08/13/2023 9:00 AM EST Office Visit [facility] [address] [place] [address] Andre Osborne MD [address] [place] [address] [facility] Start: 08-09-2023 End: 08-09-2023 Patient encounter procedure 08/09/2023 9:00 AM EST Office Visit [facility] [address] [place] [address] Andre Osborne MD [address] [place] [address] [facility] Start: 08-08-2023 End: 08-08-2023 Patient encounter procedure 08/08/2023 9:00 AM EST Office Visit [facility] [address] [place] [address] Andre Osborne MD [address] [place] [address] [facility] Start: 08-06-2023 End: 08-06-2023 Patient encounter procedure 08/06/2023 9:00 AM EST Office Visit [facility] [address] [place] [address] Andre Osborne MD [address] [place] [address] [facility] Start: 08-02-2023 End: 08-02-2023 Patient encounter procedure 08/02/2023 9:00 AM EST Office Visit [facility] [address] [facility] [place] [address] Andre Osborne MD [address] [place] [address] [facility] Start: 08-01-2023 End: 08-01-2023 Patient encounter procedure 08/01/2023 9:00 AM EST Office Visit [facility] [address] [place] [address] Andre Osborne MD [address] [place] [address] [facility] Start: 07-30-2023 End: 07-30-2023 Patient encounter procedure 07/30/2023 9:00 AM EST Office Visit [facility] [address] [place] [address] Andre Osborne MD [address] [place] [address] [facility] Start: 07-26-2023 End: 07-26-2023 Patient encounter procedure 07/26/2023 9:00 AM EST Office Visit [facility] [address] [place] [address] Andre Osborne MD [address] [place] [address] [facility] Start: 07-25-2023 End: 07-25-2023 Patient encounter procedure 07/25/2023 9:00 AM EST Office Visit [facility] [address] [place] [address] Andre Osborne MD [address] [place] [address] [facility] Start: 07-23-2023 End: 07-23-2023 Patient encounter procedure 07/23/2023 9:00 AM EST Office Visit [facility] [address] [facility] [place] [address] Andre Osborne MD [address] [place] [address] [facility] Start: 07-19-2023 End: 07-19-2023 Patient encounter procedure 07/19/2023 9:00 AM EST Office Visit [facility] [address] [place] [address] Andre Osborne MD [address] [place] [address] [facility] Start: 07-18-2023 End: 07-18-2023 Patient encounter procedure 07/18/2023 9:00 AM EST Office Visit [facility] [address] [place] [address] Andre Osborne MD [address] [place] [address] [facility] Start: 07-16-2023 End: 07-16-2023 Patient encounter procedure 07/16/2023 9:00 AM EST Office Visit [facility] [address] [place] [address] Andre Osborne MD [address] [place] [address] [facility] Start: 07-12-2023 End: 07-12-2023 Patient encounter procedure 07/12/2023 9:00 AM EST Office Visit [facility] [address] [place] [address] Andre Osborne MD [address] [place] [address] [facility] Start: 07-11-2023 End: 07-11-2023 Patient encounter procedure 07/11/2023 9:00 AM EST Office Visit [facility] [address] [place] [address] Andre Osborne MD [address] [place] [address] [facility] Start: 06-22-2023 End: 06-22-2024 XR Chest PA and Lateral X-ray chest 2 views Imaging Routine SOB (shortness of breath) Expected: 06/22/2023, Expires: 06/22/2024 [facility] Work Phone: Comment on above: Expected: 06/22/2023 , Expires: 06/22/2024 Start: 06-22-2023 End: 06-22-2023 Patient encounter procedure 06/22/2023 11:30 AM EST Office Visit [facility] [address] [place] [address] Eddie Dougherty MD [address] [place] [address] [facility] Start: 02-23-2023 Influenza vaccination [facility]: 2017 Administration of varicella zoster vaccine Zoster (Shingles) Vaccine (1 of 2) [facility] Start: 1985 Diabetic foot examination Diabetic F oot [facility] Start: 1979 Depression Screening [facility] Start: 1967 Glaucoma screening Diabetic Op [facility]thal[facility] Start: 1967 Urine screening for protein [facility]album[facility] End: 12-22-2023 Ambulatory referral to Cardiac Rehab Ambulatory referral to Cardiac Rehab Card Rehab Routine S/P right coronary artery (RCA) stent placement Per Treatment Plan for 36 Occurrences starting 06/22/2023 until 12/22/2023 [facility] Comment on above: Per Treatment Plan f or 36 Occurrences starting 06/22/2023 until 12/22/2023 End: 09-19-2024 Basic metabolic 2000 panel - Serum or Plasma Basic Metabolic Panel Lab Routine ACS (acute coronary syndrome) ([facility]) 1 Occurrences starting 09/20/2023 until 09/19/2024 [employer] Work Phone: Comment on above: 1 Occurrences starti ng 09/20/2023 until 09/19/2024 [facility]ARDIOPULMONARY REHABILITATION C[facility] RE[facility]IL[facility] Cardiac Services Ordered: 07/09/2023 [facility] Comment on above: Ordered: 07/09/2023 CARDIOPULMONARY REHABILITATION CARDIOPULMONARY REHABILITATION Cardiac Services Ordered: 07/11/2023 [facility] Comment on above: Ordered: 07/11/2023 CARDIOPULMONARY REHABILITATION CARDIOPULMONARY REHABILITATION Cardiac Services Ordered: 07/12/2023 [facility] Comment on above: Ordered: 07/12/2023 CARDIOPULMONARY REHABILITATION CARDIOPULMONARY REHABILITATION Cardiac Services Ordered: 07/18/2023 [facility] Comment on above: Ordered: 07/18/2023 CARDIOPULMONARY REHABILITATION CARDIOPULMONARY REHABILITATION Cardiac Services Ordered: 07/25/2023 [facility] Comment on above: Ordered: 07/25/2023 CARDIOPULMONARY REHABILITATION CARDIOPULMONARY REHABILITATION Cardiac Services Ordered: 08/01/2023 [facility] Comment on above: Ordered: 08/01/2023 CARDIOPULMONARY REHABILITATION CARDIOPULMONARY REHABILITATION Cardiac Services Ordered: 08/02/2023 [facility] Comment on above: Ordered: 08/02/2023 CARDIOPULMONARY REHABILITATION CARDIOPULMONARY REHABILITATION Cardiac Services Ordered: 08/08/2023 [facility] Comment on above: Ordered: 08/08/2023 CARDIOPULMONARY REHABILITATION CARDIOPULMONARY REHABILITATION Cardiac Services Ordered: 08/09/2023 [facility] Comment on above: Ordered: 08/09/2023 CARDIOPULMONARY REHABILITATION CARDIOPULMONARY REHABILITATION Cardiac Services Ordered: 08/13/2023 [facility] Comment on above: Ordered: 08/13/2023 CARDIOPULMONARY REHABILITATION CARDIOPULMONARY REHABILITATION Cardiac Services Ordered: 08/16/2023 [facility] Comment on above: Ordered: 08/16/2023 CARDIOPULMONARY REHABILITATION CARDIOPULMONARY REHABILITATION Cardiac Services Ordered: 08/22/2023 [facility] Comment on above: Ordered: 08/22/2023 CARDIOPULMONARY REHABILITATION CARDIOPULMONARY REHABILITATION Cardiac Services Ordered: 08/23/2023 [facility] Comment on above: Ordered: 08/23/2023 CARDIOPULMONARY REHABILITATION CARDIOPULMONARY REHABILITATION Cardiac Services Ordered: 08/29/2023 [facility] Comment on above: Ordered: 08/29/2023 CARDIOPULMONARY REHABILITATION CARDIOPULMONARY REHABILITATION Cardiac Services Ordered: 08/30/2023 [facility] Comment on above: Ordered: 08/30/2023 CARDIOPULMONARY REHABILITATION CARDIOPULMONARY REHABILITATION Cardiac Services Ordered: 09/05/2023 [facility] Comment on above: Ordered: 09/05/2023 CARDIOPULMONARY REHABILITATION CARDIOPULMONARY REHABILITATION Cardiac Services Ordered: 09/12/2023 [facility] Comment on above: Ordered: 09/12/2023 CARDIOPULMONARY REHABILITATION CARDIOPULMONARY REHABILITATION Cardiac Services Ordered: 09/13/2023 [facility] Comment on above: Ordered: 09/13/2023 CARDIOPULMONARY REHABILITATION CARDIOPULMONARY REHABILITATION Cardiac Services Ordered: 09/13/2023 [facility] Comment on above: Ordered: 09/13/2023 CARDIOPULMONARY REHABILITATION CARDIOPULMONARY REHABILITATION Cardiac Services Ordered: 09/19/2023 [facility] Comment on above: Ordered: 09/19/2023 CARDIOPULMONARY REHABILITATION CARDIOPULMONARY REHABILITATION Cardiac Services Ordered: 09/24/2023 [employer] Comment on above: Ordered: 09/24/2023 End: 09-19-2024 Magnesium [Mass/volume] in Serum or Plasma Magnesium Lab Routine ACS (acute coronary syndrome) ([facility]) 1 Occurrences starting 09/20/2023 until 09/19/2024 [facility] above: 1 Occurrences starti ng 09/20/2023 until 09/19/2024 End: 06-22-2024 Natriuretic peptide B [Mass/volume] in Blood BNP Lab Routine SOB (shortness of breath) 1 Occurrences starting 06/22/2023 until 06/22/2024 [facility] Comment on above: 1 Occurrences starti ng 06/22/2023 until 06/22/2024 Immunizations Immunization Date Immunization Notes Care Provider Komal blackman 07-04-2018 influenza virus vaccine, unspecified formulation Maria Elena Nguyen A [facility] Payers Date Payer Category Payer Unknown [id number] 2023 Unknown [id number] 2022 Unknown [id number] 2022 Worker's Compensation [id number] Worker's Compensation [employer] WEXHWABQUQZE-[id number] ONLY [id number] 2019-Present [id number] [id number] .[id number] 1967 Unknown [id number] 2.16.840.1.160502.3.579 .2.727 1967 Unknown [id number] 2.16.840.1.624554.3.579 .2.727 1967 Unknown [id number] 2.16.840.1.762291.3.579 .2.1286 1967 Unknown [id number] 2.16.840.1.311491.3.579 .2.1259 1967 Unknown [id number] 2.16.840.1.357609.3.579 .2.1258 1967 Unknown [id number] 2.16.840.1.555814.3.579 .2.1258 1967 Unknown [id number] 2.16.840.1.887915.3.579 .2.1258 1967 Unknown [id number] 2.16.840.1.359046.3.579 .2.1258 1967 Unknown [id number] 2.16.840.1.917885.3.579 .2.1258 1967 Unknown [id number] 2.16.840.1.743558.3.579 .2.1285 1967 Unknown [id number] 2.16.840.1.262270.3.579 .2.1285 1967 Unknown [id number] 2.16.840.1.694641.3.579 .2.1285 1967 Unknown [id number] 2.16.840.1.416984.3.579 .2.1285 1967 Unknown [id number] 2.16.840.1.203218.3.579 .2.1285 1967 Unknown [id number] 2.16.840.1.931387.3.579 .2.1285 1967 Unknown [id number] 2.16.840.1.127812.3.579 .2.1285 1967 Unknown [id number] 2.16.840.1.056881.3.579 .2.1285 1967 Unknown [id number] 2.16.840.1.433549.3.579 .2.1285 1967 Unknown [id number] 2.16.840.1.520798.3.579 .2.1285 1967 Unknown [id number] 2.16.840.1.417504.3.579 .2.1285 1967 Unknown [id number] 2.16.840.1.671065.3.579 .2.1285 1967 Unknown [id number] 2.16.840.1.920359.3.579 .2.1285 1967 Unknown [id number] 2.16.840.1.380555.3.579 .2.1285 1967 Unknown [id number] 2.16.840.1.548683.3.579 .2.1285 1967 Unknown [id number] 2.16.840.1.766202.3.579 .2.1285 1967 Unknown [id number] 2.16.840.1.423551.3.579 .2.1285 1967 Unknown [id number] 2.16.840.1.746688.3.579 .2.1285 1967 Unknown [id number] 2.16.840.1.404863.3.579 .2.1285 1967 Unknown [id number] 2.16.840.1.806367.3.579 .2.1285 1967 Unknown [id number] 2.16.840.1.623510.3.579 .2.1285 1967 Unknown [id number] 2.16.840.1.125137.3.579 .2.1285 1967 Unknown [id number] 2.16.840.1.205915.3.579 .2.1285 1967 Unknown [id number] 2.16.840.1.328142.3.579 .2.1285 1967 Unknown [id number] 2.16.840.1.862648.3.579 .2.1285 1967 Unknown [id number] 2.16.840.1.818129.3.579 .2.1285 1967 Unknown [id number] 2.16.840.1.732299.3.579 .2.1285 1967 Unknown [id number] 2.16.840.1.862756.3.579 .2.1285 1967 Unknown [id number] 2.16.840.1.227045.3.579 .2.1285 1967 Unknown [id number] 2.16.840.1.606724.3.579 .2.1285 1967 Unknown [id number] 2.16.840.1.205322.3.579 .2.1285 1967 Unknown [id number] 2.16.840.1.521744.3.579 .2.1285 1967 Unknown [id number] 2.16.840.1.615383.3.579 .2.1285 1967 Unknown [id number] 2.16.840.1.299260.3.579 .2.1285 1967 Unknown [id number] 2.16.840.1.091564.3.579 .2.1285 1967 Unknown [id number] 2.16.840.1.388855.3.579 .2.1285 1967 Unknown [id number] 2.16.840.1.867431.3.579 .2.1285 1967 Unknown [id number] 2.16.840.1.301893.3.579 .2.1285 1967 Unknown [id number] 2.16.840.1.378772.3.579 .2.1285 1967 Unknown [id number] 2.16.840.1.265383.3.579 .2.1285 1967 Unknown [id number] 2.16.840.1.051884.3.579 .2.1285 1967 Unknown [id number] 2.16.840.1.562978.3.579 .2.1285 1967 Unknown [id number] 2.16.840.1.171931.3.579 .2.1285 1967 Unknown [id number] 2.16.840.1.116346.3.579 .2.1285 1967 Unknown [id number] 2.16.840.1.422063.3.579 .2.1285 1967 Unknown [id number] 2.16.840.1.578041.3.579 .2.1285 1967 Unknown [id number] 2.16.840.1.073442.3.579 .2.1285 1967 Unknown [id number] 2.16.840.1.274932.3.579 .2.1285 1967 Unknown [id number] 2.16.840.1.432329.3.579 .2.1285 1967 Unknown [id number] 2.16.840.1.684648.3.579 .2.1285 1967 Unknown [id number] 2.16.840.1.538382.3.579 .2.1285 1967 Unknown [id number] 2.16.840.1.975462.3.579 .2.1285 1967 Unknown [id number] 2.16.840.1.039092.3.579 .2.1285 1967 Unknown [id number] 2.16.840.1.973181.3.579 .2.1285 1967 Unknown [id number] 2.16.840.1.533279.3.579 .2.1285 1967 Unknown [id number] 2.16.840.1.946105.3.579 .2.1285 1967 Unknown [id number] 2.16.840.1.420281.3.579 .2.1285 1967 Unknown [id number] 2.16.840.1.852869.3.579 .2.1285 1967 Unknown [id number] 2.16.840.1.860051.3.579 .2.1286 1967 Unknown [id number] 2.16.840.1.903078.3.579 .2.1286 1967 Unknown [id number] 2.16.840.1.299012.3.579 .2.1286 1967 Unknown [id number] 2.16.840.1.514065.3.579 .2.1286 1967 Unknown [id number] 2.16.840.1.143947.3.579 .2.196 1967 Unknown [id number] 2.16.840.1.431488.3.579 .2.196 Private Health Insurance [id number] 2.16.840.1.723671.19 Social History Date Type Detail Facility Unknown if ever smoked [facility] Other Start: 08-05-2020 End: 10-03-2022 Sex Assigned At [facility] Start: 10-03-2022 Tobacco smoking status NHIS Never smoked tobacco [facility] Start: 10-03-2022 Tobacco use and exposure Smokeless tobacco non-user [facility] Start: 06-12-2023 End: 09-20-2023 Alcohol intake Current drinker of alcohol (finding) [facility] Start: 08-05-2020 End: 10-03-2022 History of Social function [facility] Are you worried or concerned that in the next two months you may not have stable housing that you own, rent or stay in as a part of a household? No [facility] Start: 07-18-2019 Alcohol Comment occassional [facility] Start: 1965 Sex Assigned At Not on file P [facility] Medical Equipment Procedure Code Equipment Code Equipment Origin al Text Equipment Identifier Dates System Cor Stnt 3.5mm X 12mm 145cm [employer] Tom - [id number], [id number] FDA Start: 06-11-2023 Use strip as directed by glucometer [id number] Start: 06-12-2023 Goals Date Patient Goal Desired Activity /State Personal health goal Comment on above: Formatting of this n ote might be different from the original. Evaluation of progress towards goal: home self care and family support Clinical Notes 08-22-2021 to 09-20-2023 Kathy Lopez MD - 09/20/2023 8:45 AM EDTTelephone Encounter - Maya Hubbard, [facility] - 09/19/2023 9:53 AM EDTTelephone Encounter - Maya Hubbard, [facility] - 09/19/2023 9:53 AM EDT Note Date & Type Note Facility 09-20-2023 History of Present illness Narrative Damien Zander Frank Date of visit: 09/20/2023 Date of : 1965 Age: 58 y.o. Patient Active Problem List Diagnosis Essential (primary) hypertension Anxiety Gastroesophageal reflux disease without esophagitis Obstructive sleep apnea syndrome Morbid obesity ([facility]) Ventral hernia Chronic deep vein thrombosis (DVT) of lower extremity ([facility]) ACS (acute coronary syndrome) ([facility]) Acute coronary syndrome ([facility]) Unstable angina ([facility]) DM2 (diabetes mellitus, type 2) ([facility]) Allergies Allergen Reactions Amoxicillin Other Reaction(s): Unknown Amoxicillin-Pot Clavulanate Other (See Comments) tore my liver up Other Reaction(s): Unknown Current Outpatient Medications Medication Sig Dispense Refill albuterol (PROVENTIL HFA;VENTOLIN HFA) 90 mcg/actuation inhaler Inhale 2 puffs every 6 (six) hours as needed for wheezing. apixaban (ELIQUIS) 5 mg tablet Take 1 tablet (5 mg total) by mouth in the morning and 1 tablet (5 mg total) before bedtime. aspirin 81 mg chewable tablet Chew 1 tablet (81 mg total) and swallow in the morning. 30 tablet 0 atorvastatin (LIPITOR) 40 mg tablet Take 1 tablet (40 mg total) by mouth in the morning. 30 tablet 0 blood sugar diagnostic (glucose blood) strip Use strip as directed by glucometer 100 strip 10 buPROPion XL (WELLBUTRIN XL) 150 mg 24 hr tablet Take 1 tablet (150 mg total) by mouth in the morning. carvediloL (COREG) 12.5 mg tablet Take 1 tablet (12.5 mg total) by mouth in the morning and 1 tablet (12.5 mg total) before bedtime. 60 tablet 0 clopidogreL (PLAVIX) 75 mg tablet Take 1 tablet (75 mg total) by mouth in the morning. 90 tablet 3 ezetimibe (ZETIA) 10 mg tablet Take 1 tablet (10 mg total) by mouth in the morning. 90 tablet 3 furosemide (LASIX) 20 mg tablet Take 1 tablet (20 mg total) by mouth as needed (For leg swelling). 30 tablet 11 lisinopriL (PRINIVIL,ZESTRIL) 10 mg tablet Take 1 tablet (10 mg total) by mouth nightly. metFORMIN (GLUCOPHAGE) 500 mg tablet Take 1 tablet (500 mg total) by mouth in the morning and 1 tablet (500 mg total) before bedtime. naltrexone (REVIA) 50 mg tablet Take 0.5 tablets (25 mg total) by mouth in the morning. nitroglycerin (NITROSTAT) 0.[address] 1 tablet (0.3 mg total) under the tongue every 5 (five) minutes as needed for chest pain. 100 tablet 3 pantoprazole (PROTONIX) 40 mg EC tablet Take 1 tablet (40 mg total) by mouth every morning before breakfast. 30 tablet 0 No current facility-administered medications for this visit. Chief Complaint Patient presents with Follow-up 3 MONTH History of Present Illness Patient doing well with no major issues. No major physical decline. Tolerating the medicines without any particular issue. No chest pain no shortness breath no lightheadedness syncope near syncope. No palpitations orthopnea PND. When the patient does do activity there is no limitation. Has done extremely well since his stent of his RCA in May. He needs his back operated on at some point but would need to wait at least 6 months before we could get him off his Plavix. He is on Eliquis also for history of DVT Past Medical History: Diagnosis Date Arthritis Asthma DM2 (diabetes mellitus, type 2) ([facility]) 06/10/2023 DVT (deep venous thrombosis) ([facility]) chronic LLE on Eliquis Hypertension Obesity Visual impairment No data recorded No data recorded No data recorded Past Surgical History: Procedure Laterality Date APPENDECTOMY ARTHROSCOPY MENISCECTOMY KNEE & CPT 46433 Left 09/20/2021 Performed by Mason Vang Jr., DO at [facility] Cardiac catheterization N/A 06/11/2023 Performed by Andre Osborne MD at [facility] CARPAL TUNNEL RELEASE Bilateral Coronary angiogram and left ventricular gram/pressure N/A 06/11/2023 Performed by Andre Osborne MD at [facility] HERNIA REPAIR x4 NECK SURGERY C6&7 [facility] 2007 SHOULDER ARTHROSCOPY Stent drug-eluting right coronary artery N/A 06/11/2023 Performed by Andre Osborne MD at [facility] Family History Problem Relation Age of Onset Heart disease Mother Cancer Father prostate Diabetes Brother Drug abuse Paternal Grandmother Social History Socioeconomic History Marital status: Spouse name: Not on file Number of children: Not on file Years of education: Not on file Highest education level: Not on file Occupational History Not on file Tobacco Use Smoking status: Never Smokeless tobacco: Never Vaping Use Vaping Use: Never used Substance and Sexual Activity Alcohol use: Yes Comment: occassional Drug use: Never Sexual activity: Defer Partners: Female Other Topics Concern Caffeine Use No Social History Narrative Not on file Social Determinants of Health Financial Resource Strain: Not on file Food Insecurity: No Food Insecurity (09/20/2023) Hunger Screening Food Insecurity - Worry: Never True Food Insecurity - Inability: Never True Transportation Needs: Not on file Physical Activity: Not on file Stress: Not on file Social Connections: Not on file Interpersonal Safety: Not on file Housing Instability: Low Risk (06/12/2023) Housing Instability Housing Instability: No Review of Systems Review of Systems Constitutional: Negative. HENT: Negative. Eyes: Negative. Respiratory: Negative. Hematologic/Lymphatic: Bruises/bleeds easily. Skin: Negative. Musculoskeletal: Positive for back pain. Gastrointestinal: Negative. Neurological: Negative. Psychiatric/Behavioral: Negative. Allergic/Immunologic: Negative. CARDIOVASCULAR: Please review HPI. Physical Examination General appearance: Alert, oriented and cooperative. In no acute distress. Skin: Warm and dry to touch. Head: Normocephalic, without obvious abnormality, atraumatic. Ears, Nose, Mouth, Throat: Throat clear without erythema or exudate. Dentition intact. Eyes: Conjunctivae unremarkable, EOM intact. Neck: No JVD, No carotid bruit. Neck supple, trachea midline. Respiratory: Clear to auscultation bilaterally, no use of accessory muscles. Cardiovascular: RRR with normal S1 and S2 with no murmurs. Gastrointestinal: Soft, non-tender. Bowel sounds normal. Musculoskeletal: No peripheral edema. Neurologic: Oriented to time, person and place, affect appropriate. No focal/major motor defects noted. Psychiatric: Appropriate mood, memory and judgement. VITAL SIGNS: Ht 180.3 cm (5' 11 ) Wt (!) 155.1 kg (342 lb) BMI 47.70 kg/m No orders of the defined types were placed in this encounter. There are no discontinued medications. IMPRESSIONS/PLAN There are no diagnoses linked to this encounter. CAD s/p TOM to RCA 06/11/23 Normal EF TTE 05/2023 Essential hypertension Type 2 diabetes mellitus Lipids 05/2023: Total cholesterol 129, HDL 32, LDL 79, triglycerides 89 Hx of DVT on Eliquis BLAIR/ working on obtaining CPAP machine Morbid obesity, BMI 50 Hx of panic attacks Patient doing well Continue with Plavix and Eliquis He is lost 55 lb Will check BNP and magnesium to make sure he has not wasting these electrolytes. He does have diarrhea but he says he is gotten used to it TODAYS ORDERS No orders of the defined types were placed in this encounter. FOLLOW UP No follow-ups on file. PCP: Maya Mattson MD Referring Physician: Maya Mattson MD [address] [place] [address] documented in this encounter [facility] 09-19-2023 Miscellaneous Notes Called patient to remind them to bring their most current copy of their medication list with them to their appt. Patient verbalizes understanding. documented in this encounter [facility] 09-19-2023 Telephone encounter Note Called patient to remind them to bring their most current copy of their medication list with them to their appt. Patient verbalizes understanding. [facility] 06-22-2023 History of Present illness Narrative Damien Frank Date of visit: 06/22/2023 Date of : 1965 Age: 58 y.o. Patient Active Problem List Diagnosis Essential (primary) hypertension Anxiety Gastroesophageal reflux disease without esophagitis Obstructive sleep apnea syndrome Morbid obesity (CMS-HCC) Ventral hernia Chronic deep vein thrombosis (DVT) of lower extremity (CMS-HCC) ACS (acute coronary syndrome) ([facility]) Acute coronary syndrome ([facility]) Unstable angina ([facility]) DM2 (diabetes mellitus, type 2) ([facility]) Allergies Allergen Reactions Amoxicillin Other Reaction(s): Unknown Amoxicillin-Pot Clavulanate Other (See Comments) tore my liver up Other Reaction(s): Unknown Current Outpatient Medications Medication Sig Dispense Refill albuterol (PROVENTIL HFA;VENTOLIN HFA) 90 mcg/actuation inhaler Inhale 2 puffs every 6 (six) hours as needed for wheezing. apixaban (ELIQUIS) 5 mg tablet Take 1 tablet (5 mg total) by mouth in the morning and 1 tablet (5 mg total) before bedtime. aspirin 81 mg chewable tablet Chew 1 tablet (81 mg total) and swallow in the morning. 30 tablet 0 atorvastatin (LIPITOR) 40 mg tablet Take 1 tablet (40 mg total) by mouth in the morning. 30 tablet 0 blood sugar diagnostic (glucose blood) strip Use strip as directed by glucometer 100 strip 10 carvediloL (COREG) 12.5 mg tablet Take 1 tablet (12.5 mg total) by mouth in the morning and 1 tablet (12.5 mg total) before bedtime. 60 tablet 0 lisinopriL (PRINIVIL,ZESTRIL) 10 mg tablet Take 1 tablet (10 mg total) by mouth nightly. metFORMIN (GLUCOPHAGE) 500 mg tablet Take 1 tablet (500 mg total) by mouth in the morning and 1 tablet (500 mg total) before bedtime. nitroglycerin (NITROSTAT) 0.[address] 1 tablet (0.3 mg total) under the tongue every 5 (five) minutes as needed for chest pain. 100 tablet 3 pantoprazole (PROTONIX) 40 mg EC tablet Take 1 tablet (40 mg total) by mouth every morning before breakfast. 30 tablet 0 ticagrelor (BRILINTA) 90 mg tablet Take 1 tablet (90 mg total) by mouth every 12 (twelve) hours. 60 tablet 0 No current facility-administered medications for this visit. No chief complaint on file. History of Present Illness Patient here for follow-up visit. Discharge earlier this month from [facility] after being admitted with unstable angina underwent cardiac catheterization and received stent to the RCA. Has history of hypertension, diabetes mellitus, BLAIR morbid obesity. Patient stated that since he had the stent placement occasionally feels short of breath, thinks that it might be due to panic exercise usually occurs in the evening cholesterol bedtime. No orthopnea. Some mild leg edema. No chest pain reported or palpitations or dizziness. No tobacco use. Vitals stable. Past Medical History: Diagnosis Date Arthritis Asthma DM2 (diabetes mellitus, type 2) ([facility]) 06/10/2023 DVT (deep venous thrombosis) ([facility]) chronic LLE on Eliquis Hypertension Obesity Visual impairment No data recorded No data recorded No data recorded Past Surgical History: Procedure Laterality Date APPENDECTOMY ARTHROSCOPY MENISCECTOMY KNEE & CPT 43273 Left 09/20/2021 Performed by Mason Vang Jr., DO at [facility] Cardiac catheterization N/A 06/11/2023 Performed by Andre Osborne MD at [facility] CARPAL TUNNEL RELEASE Bilateral Coronary angiogram and left ventricular gram/pressure N/A 06/11/2023 Performed by Andre Osborne MD at [facility] HERNIA REPAIR x4 NECK SURGERY C6&7 [facility] 2006 SHOULDER ARTHROSCOPY Stent drug-eluting right coronary artery N/A 06/11/2023 Performed by Andre Osborne MD at [facility] Family History Problem Relation Age of Onset Heart disease Mother Cancer Father prostate Diabetes Brother Drug abuse Paternal Grandmother Social History Socioeconomic History Marital status: Spouse name: Not on file Number of children: Not on file Years of education: Not on file Highest education level: Not on file Occupational History Not on file Tobacco Use Smoking status: Never Smokeless tobacco: Never Vaping Use Vaping Use: Never used Substance and Sexual Activity Alcohol use: Yes Comment: occassional Drug use: Never Sexual activity: Defer Partners: Female Other Topics Concern Not on file Social History Narrative Not on file Social Determinants of Health Financial Resource Strain: Not on file Food Insecurity: No Food Insecurity (06/12/2023) Hunger Screening Food Insecurity - Worry: Never True Food Insecurity - Inability: Never True Transportation Needs: Not on file Physical Activity: Not on file Stress: Not on file Social Connections: Not on file Interpersonal Safety: Not on file Review of Systems Review of Systems Constitutional: Negative for chills, fever and malaise/fatigue. HENT: Negative for hearing loss and nosebleeds. Eyes: Negative for blurred vision. Respiratory: Negative for cough, shortness of breath, sputum production and wheezing. Hematologic/Lymphatic: Negative for bleeding problem. Skin: Negative for rash and suspicious lesions. Musculoskeletal: Negative for joint pain and myalgias. Gastrointestinal: Negative for abdominal pain, change in bowel habit, hematochezia, melena, nausea and vomiting. Genitourinary: Negative for dysuria and hematuria. Neurological: Negative for dizziness, focal weakness, headaches and paresthesias. CARDIOVASCULAR: Please review HPI. Physical Examination General appearance: Alert, oriented and cooperative. In no acute distress. Skin: Warm and dry to touch. Head: Normocephalic, without obvious abnormality, atraumatic. Ears, Nose, Mouth, Throat: Throat clear without erythema or exudate. Dentition intact. Eyes: Conjunctivae unremarkable, EOM intact. Neck: No JVD, No carotid bruit. Neck supple, trachea midline. Respiratory: Clear to auscultation bilaterally, no use of accessory muscles. Cardiovascular: RRR with normal S1 and S2 with no murmurs. Gastrointestinal: Soft, non-tender. Bowel sounds normal. Musculoskeletal: No peripheral edema. Neurologic: Oriented to time, person and place, affect appropriate. No focal/major motor defects noted. Psychiatric: Appropriate mood, memory and judgement. VITAL SIGNS: There were no vitals taken for this visit. No orders of the defined types were placed in this encounter. There are no discontinued medications. IMPRESSIONS/PLAN 1. S/P right coronary artery (RCA) stent placement 2. Essential hypertension 3. Pure hypercholesterolemia 4. History of DVT (deep vein thrombosis) 5. Morbid obesity with BMI of 50.0-59.9, adult ([facility]) Previous cardiac related labs and test results were reviewed and discussed with the patient. CAD s/p TOM to RCA 06/11/23 Normal EF TTE 05/2023 Essential hypertension Type 2 diabetes mellitus Lipids 05/2023: Total cholesterol 129, HDL 32, LDL 79, triglycerides 89 Hx of DVT on Eliquis BLAIR/ working on obtaining CPAP machine Morbid obesity, BMI 50 Hx of panic attacks Here for routine follow-up. Occasionally shortness of breath. I ordered a chest x-ray and BNP to assess for congestive heart failure. Has some mild edema in the legs, otherwise no other significant evidence of volume overload. I switch from Brilinta to Plavix to see if it helps as sometimes can be reason of shortness of breath as a side effect, patient stated that symptoms noticed after discharge from the hospital. Counseled on salt and fluid restriction. Referred to cardiac rehab. Zetia added for better lipid control, goal LDL less than 70. Plan to repeat lipid function test in 6 months. Plan to stop aspirin one-month post stent placement and continue with Eliquis and Plavix. Plavix for at least 1 year. Counseled on following a heart healthy diet, exercise and weight loss. Follow-up in 3 months or sooner if needed. Patient to call us with any cardiac questions or concerns. TODAYS ORDERS No orders of the defined types were placed in this encounter. FOLLOW UP No follow-ups on file. PCP: Maya Mattson MD Referring Physician: Maya Mattson MD [address] [place] [address] documented in this encounter [facility] 06-21-2023 Miscellaneous Notes Unable to remind patient of appointment. Phone was not accepting calls at this time.DEEPAK Mojica documented in this encounter [facility] 06-21-2023 Telephone encounter Note Unable to remind patient of appointment. Phone was not accepting calls at this time.DEEPAK Mojica [facility] 08-22-2021 Evaluation note Encounter Date Diagnosis Assessment Notes Jul, Recurrent deep vein thrombosis (DVT) of left lower extremity (ICD-10 - I82.402) This patient had an acute DVT in March 222020 in his left popliteal vein. Recent duplex suggest chronic DVT with partial flow through the left popliteal vein. The patient is desiring to undergo a knee scope procedure due to his symptoms. From my standpoint I suggest we hold the blood thinner for 2 days and then resume it as soon as feasible afterwards. I explained to the patient that he is at increased risk for a third DVT in the left knee. He understands this. I also think the patient will need lifelong anticoagulation when able to do so after the knee scope. Alternatively we discussed an IVC filter placement although I do not believe that that is indicated in this scenario. [facility] Other Evaluation noteNo InformationNort Rypple Other Evaluation note* Diagnosis S/P right coronary artery (RCA) stent placement- Primary Essential hypertension Unspecified essential hypertension Pure hypercholesterolemia History of DVT (deep vein thrombosis) Morbid obesity with BMI of 50.0-59.9, adult ([facility]) SOB (shortness of breath) Shortness of breath [facility] Diagnosis SOB (shortness of breath) Shortness of breath [facility] Diagnosis Acute coronary syndrome (CMS-HCC) Intermediate coronary syndrome [facility] Diagnosis Acute coronary syndrome (CMS-HCC) Intermediate coronary syndrome [facility] Diagnosis Acute coronary syndrome (CMS-HCC) Intermediate coronary syndrome [facility] Diagnosis Acute coronary syndrome (CMS-HCC) Intermediate coronary syndrome [facility] Diagnosis Acute coronary syndrome (CMS-HCC) Intermediate coronary syndrome [facility] Diagnosis Acute coronary syndrome (CMS-HCC) Intermediate coronary syndrome [facility] Diagnosis Acute coronary syndrome (CMS-HCC) Intermediate coronary syndrome [facility] Diagnosis Acute coronary syndrome (CMS-HCC) Intermediate coronary syndrome [facility] Diagnosis Acute coronary syndrome (CMS-HCC) Intermediate coronary syndrome [facility] Diagnosis Acute coronary syndrome (CMS-HCC) Intermediate coronary syndrome [facility] Diagnosis Acute coronary syndrome (CMS-HCC) Intermediate coronary syndrome [facility] Diagnosis Acute coronary syndrome (CMS-HCC) Intermediate coronary syndrome [facility] Diagnosis Acute coronary syndrome (CMS-HCC) Intermediate coronary syndrome [facility]* Diagnosis Acute coronary syndrome (CMS-HCC) Intermediate coronary syndrome [facility] Diagnosis Acute coronary syndrome (CMS-HCC) Intermediate coronary syndrome [facility]* Diagnosis Acute coronary syndrome (CMS-HCC) Intermediate coronary syndrome [facility] Diagnosis Acute coronary syndrome (CMS-HCC) Intermediate coronary syndrome documented [facility] Diagnosis Acute coronary syndrome (CMS-HCC) Intermediate coronary syndrome documented [facility] this [facility]* Diagnosis Acute coronary syndrome ([facility]) Intermediate coronary syndrome documented [facility] this encounter [facility]* Diagnosis ACS (acute coronary syndrome) ([facility] Primary Intermediate coronary syndrome documented [facility] Narrative - Reported* Type Description Date Medical History hypertension Medical History sleep apnea Medical History asthma Medical History blood clot left lower leg Surgical History C6-C7 neck fusion Surgical History hernia repair x4 Surgical History appendectomy Surgical History Bilateral CTR Surgical History right shoulder Hospitalization History appendectomy [facility] Other InstructionsNot on filedocumented in this encounter [facility] filedocumented in [facility] encounter [facility] filedocumented in this encounter [facility]Not on filedocumented in this encounter [facility]Not on filedocumented in this encounter [facility] System[facility]ructionsNot on filedocumented in this encounter [facility] (narrative)* Consultation (Routine) - Pending Review Specialty Diagnoses / Procedures Referred By Petra aden Referred To Contact Cardiac Rehabilitation Diagnoses S/P right coronary artery (RCA) stent placement Procedures Ambulatory referral to Cardiac Rehab Eddie Dougherty MD [address] [place] [address] [facility] Cardiac Rehab Billing [address] [place] [phone] Referral ID Status Reason Start Date Expiration Date V isits Requested Visits Authorized [id number] Pending Review 06/22/2023 06/21/2024 36 36 [facility] Narrative* Consultation (Routine) - Authorized Specialty Diagnoses / Procedures Referred By Petra aden Referred To Contact Cardiac Rehabilitation Diagnoses Acute coronary syndrome ([facility]) Procedures [facility] - [facility]- [place], [place] Andre Osborne MD [address] [place] [address] [facility] Billing [address] [place] [address] Referral ID Status Reason Start Date Expiration Date V isits Requested Visits Authorized [id number] Authorized 06/11/2023 06/10/2024 36 36 [facility] Narrative* Consultation (Routine) - Pending Review Specialty Diagnoses / Procedures Referred By Petra t Referred To Contact Cardiac Rehabilitation Diagnoses Acute coronary syndrome ([facility]) Procedures [facility] - [facility]- [place], [place] Andre Osborne MD [address] [place] [address] [facility]illing [address] [place] [address] Referral ID Status Reason Start Date Expiration Date V isits Requested Visits Authorized [id number] Pending Review 06/11/2023 06/10/2024 36 36 [facility] Summary Purpose Family History No Family History Records FoundNo Family History Records FoundNo Family History Records FoundNo Family History Records FoundNo Family History Records FoundNo Family History Records FoundNo Family History Records Found Advance Directives No Advanced Directives Records FoundLatest Code Status on File Code Status Date Activated Date Inactivated Comments Full Code 06/10/2023 7:04 AM 06/12/2023 7:16 PM Latest Code Status on File Code Status Date Activated Date Inactivated Comments Full Code 06/10/2023 7:04 AM 06/12/2023 7:16 PM Additional Source Comments (unrecognized sect ion and content) No Status Records FoundNo Status Records FoundNo Status Records FoundNo Status Records FoundNo Status Records FoundNo Status Records FoundNo Status Records Found INFORMATION SOURCE (unrecogn ized section and content) DATE CREATED AUTHOR 08/01/2021 [facility] dical Specialist DATE CREATED AUTHOR AUTHOR'S ORGANIZ ATION 08/18/2021 [facility] DATE CREATED AUTHOR AUTHOR'S ORGANIZ ATION 04/18/2022 [facility] DATE CREATED AUTHOR AUTHOR'S ORGANIZ ATION 06/14/2023 [facility] DATE CREATED AUTHOR AUTHOR'S ORGANIZ ATION 07/23/2023 [facility] dical Specialists [facility] DATE CREATED AUTHOR AUTHOR'S ORGANIZ ATION 11/17/2023 [facility] DATE CREATED AUTHOR AUTHOR'S ORGANIZ ATION 11/18/2023 [facility] REASON FOR VISIT (unrecogniz ed section and content) Reason Comments Follow-up EST PT TTH s/p Cath/ stent SCHED W/ Reason Comments Follow-up 3 MONTH Care Teams (unrecognized sec tion and content) [employer] Relationship Specialty Start Date End Date Maya Mattson MD [address] [place] [address] PCP - General Family Medicine 08/15/17 [employer] Relationship Specialty Start Date End Date Maya Mattson MD [address] [facility] [place] [address] PCP - General Family Medicine 08/15/17 [employer] Relationship Specialty Start Date End Date Maya Mattson MD [address] [facility] [place] [address] PCP - General Family Medicine 08/15/17 [employer] Relationship Specialty Start Date End Date Maya Mattson MD [address] [facility] [place] [address] PCP - General Family Medicine 08/15/17 [employer] Relationship Specialty Start Date End Date Maya Mattson MD [address] [facility] [place] [address] PCP - General Family Medicine 08/15/17 [employer] Relationship Specialty Start Date End Date Maya Mattson MD [address] [place] [address] PCP - General Family Medicine 08/15/17 [employer] Relationship Specialty Start Date End Date Maya Mattson MD [address] [place] [address] PCP - General Family Medicine 08/15/17 [employer] Relationship Specialty Start Date End Date Maya Mattson MD [address] [place] [address] PCP - General Family Medicine 08/15/17 [employer] Leadership Relationship Specialty Start Date End Date Maya Mattson MD [address] [place] [address] PCP - General Family Medicine 08/15/17 [employer] Relationship Specialty Start Date End Date Maya Mattson MD [address] [place] [address] PCP - General Family Medicine 08/15/17 [employer] Relationship Specialty Start Date End Date Maya Mattson MD [address] [place] [address] PCP - General Family Medicine 08/15/17 [employer] Relationship Specialty Start Date End Date Maya Mattson MD [address] [place] [address] PCP - General Family Medicine 08/15/17 [employer] Relationship Specialty Start Date End Date Maya Mattson MD [address] [place] [address] PCP - General Family Medicine 08/15/17 [employer] Relationship Specialty Start Date End Date Maya Mattson MD [address] [place] [address] PCP - General Family Medicine 08/15/17 [employer] Relationship Specialty Start Date End Date Maya Mattson MD [address] [place] [address] PCP - General Family Medicine 08/15/17 [employer] Relationship Specialty Start Date End Date Maya Mattson MD [address] [place] [address] PCP - General Family Medicine 08/15/17 [employer] Relationship Specialty Start Date End Date Maya Mattson MD [address] [place] [address] PCP - General Family Medicine 08/15/17 [employer] Relationship Specialty Start Date End Date Maya Mattson MD [address] [place] [address] PCP - General Family Medicine 08/15/17 [employer] Relationship Specialty Start Date End Date Maya Mattson MD [address] [place] [address] PCP - General Family Medicine 08/15/17 [employer] Relationship Specialty Start Date End Date Maya Mattson MD [address] [place] [address] PCP - General Family Medicine 08/15/17 [employer] Relationship Specialty Start Date End Date Maya Mattson MD [address] [place] [address] PCP - General Family Medicine 08/15/17 [employer] Relationship Specialty Start Date End Date Maya Mattson MD [address] [place] [address] PCP - General Family Medicine 08/15/17 [employer] Relationship Specialty Start Date End Date Maya Mattson MD [address] [place] [address] PCP - General Family Medicine 08/15/17 [employer] Relationship Specialty Start Date End Date Maya Mattson MD [address] [place] [address] PCP - General Family Medicine 08/15/17 [employer] Relationship Specialty Start Date End Date Maya Mattson MD [address] [place] [address] PCP - General Family Medicine 08/15/17 FOR RECORDS PERTAINING TO PATIENTS WHO ARE OR HAVE BEEN ENROLLED IN A CHEMICAL DEPENDENCY/SUBSTANCEABUSE PROGRAM, SOME INFORMATION MAY BE OMITTED. This clinical summary was aggregated from multiple sources. Caution should be exercised in using it in the provision of clinical care. This summary normalizes information from multiple sources, and as a consequence, information in this document may materially change the coding, format and clinical context of patient data. In addition, data may be omitted in some cases. CLINICAL DECISIONS SHOULD BE BASED ON THE PRIMARY CLINICAL RECORDS. [facility] [employer] [facility]. provides no warranty or guarantee of the accuracy or completeness of information in this document.
[2024-01-14 08:11] VITALS: BP 158/90; PULSE 64; TEMP 36.7; O2SAT 97
[2024-01-14 08:17] LABS: Glucometer 105 mg/dL (74-106)
[2024-01-14 09:14] VITALS: PULSE 64; O2SAT 97
[2024-01-14 09:16] VITALS: BP 153/80
--- NOTE | 2024-01-14 09:17 | P.ON_ITS ---
Date of procedure: 01/14/24 Pre-op diagnosis: Pain due to lumbar stenosis with neurogenic claudication Post-op diagnosis: same as pre-op Procedure: Procedure: Left L3-4, L4-5 transforaminal epidural steroid injection Medications: Bupivacaine 0.25% 2cc, lidocaine 2% 1cc, kenalog 80mg The patient was seen and examined in the preoperative holding area.? Informed consent was obtained and placed on the chart.? Patient was brought to the medical procedure unit and placed in the prone position where a timeout was completed verifying the correct patient, procedure site, position, and planned special equipment using sterile aseptic technique.? Under direct fluoroscopic visualization a 25-gauge Quincke tipped spinal needle was advanced to the designated neural foramen where contrast dye was injected to show adequate spread.? The needle was inserted at level left L3-4. There was no evidence of vascular or adverse uptake.? Epidural spread was appreciated.? The above- mentioned injectate was then placed in a 1.5 mL aliquot preceded by negative aspiration.? The needle was removed. The needle was inserted and the procedure repeated at level left L4-5.? The surgery site was covered.? Patient was taken to the postprocedural recovery area and monitored for an appropriate length of time before found suitable for discharge in the accompaniment of a responsible adult. Anesthesia: Local Surgeon: Elayne Arreola Pathology: none sent Condition: stable Disposition: no change
[2024-01-14] MEDS: 0.9 % SODIUM CHLORIDE 10 ML SYRINGE - SALINE FLUSH INJ (09:18)
[2024-01-14] MEDS: IOHEXOL 240 MG/ML - 10 ML VIAL 48 MG INJ (09:18)
[2024-01-14] MEDS: BUPIVACAINE HCL 0.25% PF 25 MG/10 ML VIAL INJ (09:18)
[2024-01-14 09:19] VITALS: PULSE 60; O2SAT 97
[2024-01-14] MEDS: LIDOCAINE HCL 2% 400 MG/20 ML MDV 4 ML INJ (09:19)
[2024-01-14] MEDS: TRIAMCINOLONE ACETONIDE 40 MG/ML VIAL 80 MG INJ (09:19)
[2024-01-14 09:20] VITALS: BP 151/80
== END 2024-01-14 09:27 | disposition home or self-care (01) ==
PROVIDERS: PCP Family Medicine; Visit Provider Anesthesiology
DX: M48.062 Spinal stenosis, lumbar region with neurogenic claudication (principal); R52 Pain, unspecified; Z79.84 Long term (current) use of oral hypoglycemic drugs
CPT/HCPCS: 36415; 64483; 64484; 82948; J0665; J3301; Q9966

== ENCOUNTER 2024-01-28 07:38 | Day surgery (SDC) | payer OTHER, SELFPAY ==
--- OUTSIDE RECORDS SUMMARY | 2024-01-28 07:43 | XMS_ITS | CCD ---
Author Organization [facility] Inform ion Partnership [facility] Care Team Providers Care Shirt Presser Name Role Phone Cortez Varma Unavailable [phone] Ford Humphreys Admitting Unavailable Ford Humphreys Attending Unavailable Diego CASTRO Attending Unavailable Dieter Duarte Attending Unavailable KIESHA CORONEL Admitting Unavailab KIESHA Roberts Attending Unavailab FERNANDO Brooks Referring Unavailab MAYA Linda Primary Care Unavailable RAFAELA SUAREZ Consulting Unavailable KATHLEEN PATRICK Consulting Unavailable Maya Mattson MD Primary Care Provider ANDRE OSBORNE Referring UnavailMAYA Guaman Primary Care Unavailable ANDRE OSBORNE Referring UnavailMAYA Guaman Primary Care Unavailable ANDRE OSBORNE Referring UnavailMAYA Guaman Primary Care Unavailable ANDRE OSBORNE R Referring UnavailMAYA Guaman Primary Care Unavailable ANDRE OSBORNE R Referring UnavailMAYA Guaman Primary Care Unavailable ANDRE OSBORNE Referring UnavailMAYA Guaman Primary Care Unavailable ANDRE OSBORNE Referring UnavailMAYA Guaman Primary Care Unavailable ANDRE OSBORNE R Referring UnavailMAYA Guaman Primary Care Unavailable ANDRE OSBORNE Referring UnavailMAYA Guaman Primary Care Unavailable ANDRE OSBORNE Referring Unavailabl MAYA Ramirez Primary Care Unavailable KATHY LOPEZ Attending Unavailable MAYA MATTSON Referring Unavailable MAYA MATTSON Primary Care Unavailable [facility] R Referring Unavailabl e MAYA MATTSON Primary Care Unavailable [facility] R Referring Unavailabl e MAYA MATTSON Primary Care Unavailable [facility] R Referring Unavailabl e MAYA MATTSON Primary Care Unavailable EDDIE DOUGHERTY Attending Unavailable MAYA MATTSON Referring Unavailable MAYA MATTSON Primary Care Unavailable MAYA MATTSON Referring Unavailable MAYA MATTSON Primary Care Unavailable [facility] R Referring Unavailabl e MAYA MATTSON Primary Care Unavailable [facility] R Referring Unavailabl e MAYA MATTSON Primary Care Unavailable [facility] R Referring Unavailabl e MAYA MATTSON Primary Care Unavailable [facility] R Referring Unavailabl e MAYA MATTSON Primary Care Unavailable [facility] R Referring Unavailabl e MAYA MATTSON Primary Care Unavailable [facility] R Referring Unavailabl e MAYA MATTSON Primary Care Unavailable [facility] R Referring Unavailabl e MAYA MATTSON Primary Care Unavailable [facility] R Referring Unavailabl e MAYA MATTSON Primary Care Unavailable [facility] R Referring Unavailabl MAYA Ramirez Primary Care Unavailable [facility] R Referring Unavailabl e MAYA MATTSON Primary Care Unavailable [facility] R Referring Unavailabl e MAYA MATTSON Primary Care Unavailable [facility] R Referring Unavailabl MAYA Ramirez Primary Care Unavailable [facility] R Referring Unavailabl e MAYA MATTSON G Primary Care Unavailable [facility] R Referring Unavailabl e MAYA MATTSON Primary Care Unavailable [facility] R Referring Unavailabl e MAYA MATTSON Primary Care Unavailable [facility] R Referring Unavailabl e MAYA MATTSON G Primary Care Unavailable [facility] R Referring Unavailabl e MAYA MATTSON Primary Care Unavailable [facility] R Referring Unavailabl e GREG MATTSONFER G Primary Care Unavailable [facility] R Referring Unavailabl e MAYA MATTSON G Primary Care Unavailable [facility] R Referring Unavailabl e ÁNGELA MATTSONNIFER G Primary Care Unavailable [facility] R Referring Unavailabl e GREG MATTSONFER G Primary Care Unavailable [facility] R Referring Unavailabl e MAYA MATTSON G Primary Care Unavailable [facility] R Referring Unavailabl e MAYA MATTSON G Primary Care Unavailable [facility] R Referring Unavailabl e MAYA MATTSON G Primary Care Unavailable [facility] R Referring Unavailabl e MAYA MATTSON G Primary Care Unavailable [facility] R Referring Unavailabl e MAYA MATTSON G Primary Care Unavailable [facility] R Referring Unavailabl e MAYA MATTSON G Primary Care Unavailable [facility] R Referring Unavailabl e MAYA MATTSON G Primary Care Unavailable [facility] R Referring Unavailabl e MAYA MATTSON G Primary Care Unavailable [facility] R Referring Unavailabl e MAYA MATTSON G Primary Care Unavailable [facility] R Referring Unavailabl e MAYA MATTSON G Primary Care Unavailable [facility] R Referring Unavailabl e MAYA MATTSON G Primary Care Unavailable [facility] R Referring Unavailabl e MAYA MATTSON G Primary Care Unavailable [facility] R Referring Unavailabl e MAYA MATTSON G Primary Care Unavailable [facility] R Referring Unavailabl e MAYA MATTSON G Primary Care Unavailable [facility] R Referring Unavailabl e MAYA MATTSON G Primary Care Unavailable MAYUR BUTLER Attending Unavailable MAYA MATTSON Referring Unavailable MAYA MATTSON Primary Care Unavailable Maya Mattson MD Primary Care Unavaila ble Maxwell ABRAHAM, Elayne Kendall Attending Unavailable Maxwell ABRAHAM, Elayne Kendall Attending Maya Llanos MD Primary Care Unavailelana Arreola MD, Elayne Kendall Attending Unavailable Maya Mattson MD Primary Care MAYA Leon Attending MAYA Llanos Referring MAYA Llanos Attending MAYA Llanos Attending Unavailable MAYA MATTSON Attending Unavailable MAYA MATTSON Attending Unavailable Allergies Allergy Classification Reported Allergen(s) Allergy Type Date of Onset Reaction(s) Facility (20 sources) Amoxicillin / Clavulanate Drug Allergy 9 Other (See Comments) goAct Other (1 source) Amoxicillin / Clavulanate; Translations: [Augmentin] Drug Allergy [facility] Repository (2 sources) AMOXICILLIN-POT CLAVULANATE; Translations: [AMOXICILLIN-PO T CLAVULANATE] Propensity to adverse reactions to drug (disorder) 9 [facility] Rep[facility] (20 sources) Amoxicillin; Translations: [AMOXICILLIN] Drug Allergy 3 [facility] Medications Current Medications Medication Drug Class(es) [...] Drug Class(es) Dates Sig (Normalized) Sig (Original) [id number] 200 actuat albuterol 0.09 mg/actuat metered dose [...] 1.5 mg/ml oral solution (2 sources) Uncompetitive P-ngqgaa-A-aspartate Receptor Antagonist, Sigma-1 Agonist Start: 06-02-2019 Alicia DM 7.5-7.5 MG/5ML 10 ml Orally every [...] [Obstructive sleep apnea (adult) (pediatric)] Onset: 5 06-10-2023 Chronic Unclassified (1 source) Acute cornary syndrome [...] Results Test Name Value Interpretation Reference Range [facility] Glucose Glucometer (BldC) [M ass/Vol]on 09-17-2023 Glucose [Mass/Vol] 103 mg/dL High 65-99 [facility] Glucose [Mass/Vol] 103 mg/dL High 65 - 99 mg/dL [facility] Interpretation and review of laboratory results Abnormal [facility] Glucose Glucometer (BldC) [M ass/Vol]on 09-05-2023 Glucose [Mass/Vol] 120 mg/dL High 65-99 [facility] Glucose [Mass/Vol] 120 mg/dL High 65 - 99 mg/dL [facility] Interpretation and review of laboratory results Abnormal [facility] Glucose Glucometer (BldC) [M ass/Vol]on 07-30-2023 Glucose [Mass/Vol] 105 mg/dL High 65-99 [facility] Glucose [Mass/Vol] 121 mg/dL High 65-99 [facility] Glucose Glucometer (BldC) [M ass/Vol]on 07-26-2023 Glucose [Mass/Vol] 132 mg/dL High 65-99 [facility] Glucose [Mass/Vol] 132 mg/dL High 65 - 99 mg/dL [facility] Interpretation and review of laboratory results Abnormal [facility] Glucose Glucometer (BldC) [M ass/Vol]on 07-25-2023 Glucose [Mass/Vol] 102 mg/dL High 65-99 [facility] Glucose [Mass/Vol] 144 mg/dL High 65-99 [facility] Glucose [Mass/Vol] 144 mg/dL High 65 - 99 mg/dL [facility] Glucose [Mass/Vol] 102 mg/dL High 65 - 99 mg/dL [facility] Interpretation and review of laboratory results Abnormal [facility] Glucose Glucometer (BldC) [M ass/Vol]on 07-23-2023 Glucose [Mass/Vol] 136 mg/dL High 65-99 [facility] Glucose Glucometer (BldC) [M ass/Vol]on 07-18-2023 Glucose [Mass/Vol] 115 mg/dL High 65-99 [facility] Glucose [Mass/Vol] 152 mg/dL High 65-99 [facility] Glucose [Mass/Vol] 115 mg/dL High 65 - 99 mg/dL [facility] Interpretation and review of laboratory results Abnormal [facility] Glucose [Mass/Vol] 152 mg/dL High 65 - 99 mg/dL [facility] Interpretation and review of laboratory results Abnormal [facility] Glucose Glucometer (BldC) [M ass/Vol]on 07-16-2023 Glucose [Mass/Vol] 118 mg/dL High 65-99 [facility] Glucose [Mass/Vol] 142 mg/dL High 65-99 [facility] Glucose Glucometer (BldC) [M ass/Vol]on 07-12-2023 Glucose [Mass/Vol] 107 mg/dL High 65-99 [facility] Glucose [Mass/Vol] 130 mg/dL High 65-99 [facility] Glucose [Mass/Vol] 130 mg/dL High 65 - 99 mg/dL [facility] Glucose [Mass/Vol] 107 mg/dL High 65 - 99 mg/dL [facility] Interpretation and review of laboratory results Abnormal [facility] Glucose Glucometer (BldC) [M ass/Vol]on 07-11-2023 Glucose [Mass/Vol] 93 mg/dL Normal 65-99 [facility] Glucose [Mass/Vol] 180 mg/dL High 65-99 [facility] Glucose [Mass/Vol] 93 mg/dL 65 - 99 mg/dL [facility] Glucose [Mass/Vol] 180 mg/dL High 65 - 99 mg/dL [facility] Interpretation and review of laboratory results Abnormal [facility] Glucose Glucometer (BldC) [M ass/Vol]on 07-09-2023 Glucose [Mass/Vol] 115 mg/dL High 65-99 [facility] Glucose [Mass/Vol] 129 mg/dL High 65-99 [facility] Glucose [Mass/Vol] 115 mg/dL High 65 - 99 mg/dL [facility] Interpretation and review of laboratory results Abnormal [facility] Glucose [Mass/Vol] 129 mg/dL High 65 - 99 mg/dL [facility] Interpretation and review of laboratory results Abnormal [facility] BNPon 06-27-2023 [facility] XR CHEST 2 VIEWSon 3 XR [...] the neruo consult for right now. Normal [facility] Progress Note-Nurse Message left on patient's VM that he was approved for Neurology Consult and to call back if he wanted to go ahead with that visit. Normal [facility] Workers' Comp Officeon 04-18 Workers' Comp Office [id number]# 1.00CD:127 [facility] Coding Summary.on 04-17-2022 Coding Summary. CD:[id number] G h0bWw+PGhlYWQ+KV0WRMJ kN59sjNTokQ1ZS7gDGB0T ARINCNPREU4NHT9elKB8N EmiH4WhedGn NtwqwHDdKG66UXc9IVY7e WzrDEawnL8zjINbT5o4Tw UhAU70fX86NTnrMZOnYqX 3LjZpbjsgbWFy W8aiZbKszXNiPtd+PHRhY mxlIHdpZHRoPScxMDAlJy AsnJjxLC5cVf5xANQhARX vbGxhcHNlOiBj d4qmEUVkJBmwRY6oqYkcW 4SbpJE0PGJgu8g9Nm57hF I+UIWoEPH9xNpqEFlky54 7CcFmm4uaIFY8 xRQxUOjfZKM9Y74hy7P4B VNsCKKsFCY9tRO2vI3opF leeovvY5AyoKYvKiO0HKW 7vLGjbS2cuWyh luithN9hWcc+C93CEB1SJ JAIAM5KEff0U7VhLopnnQ I+DU49HZWrIG56gIUsoDE ba7rjsNv0UcFz ZTFoKBY6qCmvREbvs9FtF CDzQ63umIXtf6Z9DKEueM nkmYEmEdIdwSA6hO1xOXy iffueu2kxdvmo Qagol0moci48mU18A55bB QotHAYtCIG1HHGoXSXnqC cpjt3kdG0uAh7+QQnza3i pz8adjMa7UcVe NNTacuNdsIqfKQD7g9UuY b21H0VymFpwb0OdXqq4dq 54zKIax7X7oQU8RTbcHQO igX5nMTzyHeJ0 KRQxFhYvrN81sGOjQAjyE v4eiSmgbHxuVO2qJOQsyv pxVMVzxF8kMAIuyITaqYl sNK5tFIKrjgbp p971MnCyEXX5ITQzsNWfB 7ObiM7vZePvBPQaCCOoN0 GodKIuBSqgI239SHcvWdE 5MQCddrVbQ9Ee OUIlaXqfHmM6q7W0Wr9Uw 4HmoximYTB8DCohEARyKu P5DsMaBfS7Y6CqUsq4KTF zwDzaHM3fI7Mn XIZwitawstxeiQQ7XXDxC YAsqA07yIGuIGljQt0ow1 Z8h534KZDbQRMuhP36Pu2 udDogMTBwdCBU uH0dlwmcu9fqcbbxHpPsQ MGiQRd4IYx6MJNlxXznKw CuXJG9CyG8BTV9xQCsdN5 gfJntmvxupR7w Oyc+R13bzJ2nXJI2EVN0d lsiKQZmvlHlTQ57WZ75M5 RyPjwvdGFibGU+PGRpdiB cjXcuJQ7sRaUb k6xrd1XnPEjuV8VpUKTyB YnyVwj3AOZsDUB4cDR0aS 8oRTZvWLrzh6U9hMW7Y1S gnsNfsa5sw8rv KCRcMYveQ21fnWRpg7N9O RZzrCI0ESUanOxlIlAyjL 93Oyc+VOMbyJxmi2IiMao am4rem7svdDm6 GaTsONXxafOemLuqYOU2y 0WkHf31K93eLUvhJXMmZX CuLSKsAGAyjNcdys1klP5 wIi8+PGNvbCB3 jNV4cU4sGLYnPdE9LBguU 149OwDigCUqLdteh7gba4 twqLd7GbJqXMIdfmRkfLb hEIB0d1LvSe65 B40hRIxxMBBiMFDaONGpN HCalGpymd0vaL6mUe6+PC 7el0xnir28hN10zZR+PHR hTKT2rWrxZCfk UUKexC2hPElbNcQ2XZDwV dWufB34dIXaKRbcBb9fwO lnyVtbYJ4iUOGtdmlpj72 3JqTew0soOLTe yJZoUXagWXH7Q29ld4O1Q QXrVXAdXNL7nBX8aN8scX lnbjogbGVmdDsgdmVydGl kETzxLPcsX357 IHRvcDsnPlBhdGllbnQgT bRoWHe4Q1YeRdj2TFZqgU rpBW8nnSJcBKokVj1odDt rjZunCE3wZRCl rcdfx671ReTyv5meCQJny FNmHFwrXLG4Y76yl6G0JK JeRWLrFHM5iEP5tF8lwJx nbjogbGVmdDsg myWljRzuWTqzREkoK285F HRvcDsnPkJpcnRoIERhdG P7CR94HG76bALlq1G1eAQ 3A3QdPKGsxntc gwxsdVT7NOGvQHZuwH18B s6uuGfoUu1hCIOuBSY5KU ZjoDJhX3EklL1hCcQtONN yFUAlX2XviWYt TLwpC056SWcjMxN2TKKza iBiC0FyRUWjgEidJcE6y2 I7Oe1VJ0P2IP76ZY74aEW om9F9tIA5E6Jv OWHvjqdmrhwgqPD7KRYnJ ZYyaG04Vw5egFqmEp9oEV NnSJC1SSGhxMEkK4HapJ7 yOiAjMDAwMDAw K0CokZOqNMcaW993LYmnZ bG7JOZsgvLsL5IkIASwkO wkYdD5a7F8Oj7RLQy8ET7 0SA23aPHsc4J4 mUU2N8NnJZQqnskqatfwf ME1XYWjTOAggU74Yc7nvZ kaSm3dGYSkLDY7GTQvfUA fP6GumZ1iNaZe TFIyOEFdK3DxzOLoXQvwU 302OOnsJnM4SRVgfqHoI5 ScMUJpiHbpGpN4i8E9Qj5 AYAFpIV99GIS0 hTC2AW16RE20N6RbHrxid GFibGU+PHRhYmxlIHdpZH RoPScxMDAlJyBzdHlsZT0 yYw0vHUKuQHPr qFeffGZjLjDzv8fkLAWaA EokEC8nvJdkZ4ZtiUR9SC Mzc1i6Il27D23hX1GepOQ +DHVlaWT1lWJ8 pQ2lJdZmOyL1KMppD697Y dLvtIMmXbsvs1pay1rlcO n3NrC3WSYiykLugXobSVA 2h3ThKt81J68p IHdpZHRoPSIxNSUiIHZhb Tihes4oxD0vNs8+PGNvbC Y6hAY4yB9kIhEkYsE6RSx lX536YwElnGGt Yzxit7iys4vmsNi8ClViP AHfrwVjcXtcZVZ6v4KxOi 36P9SscZcdi1XxYoh8xm7 4eQWmy9F7tZJ0 Q3BcBPVxxlvikUXtvSgkH H7gWOEvxiivGZHpnR4iWA SjN3d1DjXfQqM2SPrtV2W ggdT6KPJrmBDh UHnaVHO8G44jb7P5HPDaH QKkJJJ0bAY3kH3ufTnrxg ogbGVmdDsgdmVydGljYWw oPHveZ536FATw jIfzFMZmpZ4pOWYhxAPor CwuFY1rRFZtedxmMvPGOT ADKYKASY3JOCPIRRA2V7W tKty5HBThlKhp BS5qjQUcYGzxMe4ypZpgn HenMK1qDUPbtqenZUJgoR 0fBMBufPAggTowUT1hDZV jiceml500XfKl REK0DRPjvKAfF0EsfL2nH mWzWXCoRAMoL0RdtHCpIG lrB556QCkjVfX9CCFywkY uA1NaBXUdkObq TpX4b3S0So8oYT8fZl0jP EK4EV41PG33vORes3Q0iX T8H2RvJVWabwqgxdhrmQA 6WPRxZZRfqC56 nXZnCPrdJm8uy9E2n019P TLhQEHxaQ89Kk7yhUafTJ MccGIWkE3dwkswg0wrfcn gIzAwMDAwMDt0 OUb8NJVicKqeMvIfYPU1F hP3WKV3oSYpnZ7gnGjbrd wiwC9qCpf+NTQgWWVhcnM 6H8PuQhx8OCYa eUtuKV9rhRUdTCilEy1ub ReosCdaYR7cVGFbiacqKL UoaL1nPRNhfDMmaNopCX2 vOOPnoefwv471 RcRjJPT6OIAslYYzO0Ftd I0uSdNpZEOkAUGfB0MwsC EmHVjhM339PPxbFvT0LXQ uyzEcM1ZdMLXt kZxmFlP8k9E5Wu7QWKgaB E41EN84nNQys2X2sHH2U2 TuHFIupcbfwloscIX1JQR cFLTljK98iFFo BPzxAi4mw7B3b241ITWoC LXhtT54Tt4ohOdsESIotD VZcS2ekbwnm5fgmomoKlO jTCHaAHk1ACk8 EWCejUabPiLuQFJ3WyF9T TT9xFGauM0pfVyhhgnliU 9wOyc+WT2lwdorvlN1YV9 3UO23F4CrReqp dGFibGU+PHRhYmxlIHdpZ HRoPScxMDAlJyBzdHlsZT 6nDx1hYFLxWVDywMqhlUA bSxOil5joWLCp OQwqMU1gqWwnG8TreZH0V ZGqr7r8Xg44G28mA4GbzN A+YDVwzMI0rPH4hW7fOlX gGrF4ZBhlP174 KzCefSFnOyjek6vel6vzf Lq2GyWtJODizjIclWtxFV Q1b6KhTj47E98fLJgjSIH oPSIyMCUiIHZh jNysgo9osN0tHc3+PGNvb PC8vUV5sW0cYhTxSpG1SA vtB674FuStdIRqCwpsF46 qL2DogHJ+PHRy Uaz9IHQwoHwvDL9laNJiN IivUw3nMVV9WyMuXtVqON ziY6YyWUKhcgiovczhyTM 1LNUaAKRysG94 Ez6fjIulLf1iSSXxMKK4V CVndSCeB5HcjE8eCgXiBT IrXJLtW8UzkRJcDSfmG35 6TNlySmE3EYHi ryQzS4MrGNLzdCdpSyX9u 4Q4Ru9IkBteyCSsKG5uFy DjWQm5O6HxOrf3PQOnzFa fSY2goMAfYUop Ha1xxCrafGtvLO1qUZBwl kkhf550TpQzg7jiEIQltL OjHLykTMS9L21jd7N5DNM cJTFcYBV2sUP1 hB2twVnucmudfFFjrNqdf zAhsHthSKdvGWgaI068QU NzwXnyTyLAVzl0J1WkDbs 2THMbjMzfVL3c pPGuOJdgIy7tuKmmjWdcJ V5zUYUekofcl741EgByf5 yzHRUqzGRpNSajIPJ9R55 uq8Y0FBHiJJJa HSA6vDD9tS9coBxfzrdxv GVmdDsgdmVydGljYWwtYW qbX648XLRpeUktZt5EZpf 7H8WqFkl1CRXp tKoiVI5diMJiBMznTd9mf PzoxDrhSG1uSGCredmfg8 61VrHqy5ahRPIfhFQsTRb jKEZ2Y11ru1G7 NYHpGONrEVD4nRO9jP1cp GlnbjogbGVmdDsgdmVydG heYBlqIBlbV052TTHgjQz nPlBheWVyOjwv dGQ+FX27tk19T4JoBtdtG jd6ZSHtKDP3mLH6fK5vBA IuUIypi3I5oHG8X1CnbhY gzl5rc9ruDMAj ZTog (more content not included)... Normal [facility] Workers' Comp Officeon 04-17 Workers' Comp Office [id number]#1 .00CD:127 Normal [facility] Workers' Comp Office [id number]#1 .00CD:127 Normal [facility] Workers' Comp Office [id number]#1 .00CD:127 Normal [facility] Consenton 04-13-2022 Consent [id number]#1 .00CD:127 Normal [facility] Progress Note-Physicianon Progress Note-Physician Patient: DAMIEN FRANK Age: 56 years Sex: Male : 1965 Associated Diagnoses: None Author: Ford Humphreys DO Chief Complaint 04/13/2022 10:24 EDT pt bent over to open a door and hit his head on the door, pt states he felt dizziness, pain and nausea after incident , treated at [facility] ER and CT scan was don, pt [...] Impression and Plan Diagnosis Abrasion of scalp (YCT67-CF S00.01XA, Working, Medical). Acute head injury (TLB26-QU S09.90XA, Working, Medical). Concussion (MXD64-XC S06.0XAA, Working, Medical). two days post-injury continues [...] with a possible concussion. f/u TBD Normal [facility] Comment on above: Result Comment: Elec tronically Signed By: Ford Humphreys DO\.br\Date and Time Signed: 04/13/22 16:58 EDT Discharge Instructionson Discharge Instructions [id number]# 1.00CD:127 Normal [facility] ED Traumaon 04-12-2022 ED Trauma [id number]# 1.00CD:127 Normal [facility] Workers Comp Formson 022 Workers Comp Forms [id number]# 1.00CD:127 Normal [facility] CT Head or Brain w/o Contras ton [...] MD Transcribed by: MEHNAZ Technologist: NELLIE Normal [facility] CT Spine Cervical w/o Contra ston 04-11-2022 [...] MD Transcribed by: MEHNAZ Technologist: NELLIE Normal [facility] Capillary Glucose POCon 03-25 Glucose [Mass/Vol] 104 mg/dL High 55-99 [facility] Comment on above: Result Comment: Sisi ernestine Meter Performed By: #### 2 [id number] ####[facility] [id number] [place] [address] Consent for Treatmenton 03-25 Consent for Treatment [id number]#1 .00CD:127 Normal [facility] ED Clinical Summaryon 2021 ED Clinical Summary [place] [id number] ED Clinical Summary Person Information Name: JOSSEИВАНYuli [place] Age: 56 Years : 1965 Sex: Male Language: Chinese PCP: MAYA MATTSON MD Marital Status: Phone: [phone] Visit Id: Visit Reason: Dizziness; Trauma - [...] 04/11/2022 19:44:56 04/11/2022 19:44:56 04/11/2022 19:44:56 ADDRESS: [address] [place] [id number] [facility] DOC NOTES: Addendum by Dieter Duarte DO on April 11, 2022 19:07:31 EDT MEDICAL INFORMATION: Prescriptions Given: Medications to Continue with No Changes Other Medications metoprolol (metoprolol 25 mg ER Tab) 1 Tablets By Mouth 2 times a day. PATIENT EDUCATION INFORMATION: Instructions: Head Injury, Adult; Abrasion, Vopq-co-Vfgj Follow up: With: Address: When: [email or web address]: [facility] [phone] In 3 days 04/14/2022 With: Address: When: MAYA MATTSON [address] [place], [place] [id number] [place] (6) In 3 days DIAGNOSIS: Head injury; Scalp abrasion Normal [facility] ED Note-Physicianon 04-11-20 ED Note-Physician Basic Information Time Seen: Dieter Duarte DO 04/11/2022 17:17 Chief Complaint pt reports hitting [...] ER symptoms should change or worsen. Normal [facility] Comment on above: Result Comment: Elec tronically [...] at home: Medicines ? Take or apply pege-dak-lsigran and prescription medicines only as told by [...] cannot use soap and water, use hand hot die press feeder. ? Change your bandage as told by [...] 11/27/2008 Document Revised: 05/24/2018 Document Reviewed: 01/31/2018 [employer] Patient Education ? 2019 [employer] Neurology Head Injury, Adult There are [...] brain t (more content not included)... Normal [facility] ED Patient Summaryon 022 ED Patient Summary [address] [address] Patient Discharge Instructions Person Information Name: DAMIEN FRANK Age: 56 Years Arrival Date: 04/11/2022 17:11:51 Discharge Diagnosis: Head injury; Scalp abrasion Primary Care Physician: MAYA MATTSON MD Provider Information Primary Provider: Dieter Duarte DO Advanced Inorganic Chemistry Teacher:None The exam and treatment you received in the Emergency Department were for an urgent problem and are not intended as complete care. It is important that you follow up with a doctor, nurse practitioner, or physician?s certified surgical tech/first assistant for ongoing care. If your symptoms become worse or you do not improve as expected and you are unable to reach your usual health care provider, you should return to the Emergency Department. We are available 24 hours a day. DAMIEN FRANK has been given the following list of patient education materials, prescriptions and follow-up instructions: Follow-up Instructions: With: Address: When: [facility]: [facility] [phone] In 3 days 04/14/2022 With: Address: When: MAYA MATTSON [address] [place] [address] [phone] [facility] (7) In 3 days In the event that this physician does not participate in your insurance network, please consult with your insurance company to find a nearby participating provider. Patient Education Materials: Head Injury, Adult; Abrasion, Jepo-[id number] A MESSAGE TO ALL PATIENTS REGARDING OPIOIDS PRESCRIPTION OPIOIDS: WHAT YOU NEED TO KNOW Prescription opioids can be used to help relieve zbbgruob-kt-[id number] pain and are often prescribed following a [...] be struggling with addiction, tell your health field care coordinator and a (more content not included)... Normal [facility] Vaccinationson 04-11-2022 Vaccinations [phone]. 0 [id number]# 1.00CD:127 Normal [facility] US Venous, Unilat, Lower Ext Lefton 02-07-2022 US Venous, Unilat, Lower Ext Left FINDINGS: Comparison is made with the prior examination of April 29, 2021. Recanalization of flow through the popliteal vein with hyperechogenic thrombus, reduced volume (nonocclussive). Normal superficial and common femoral veins. IMPRESSION: Popliteal venous thrombus recanalization, chronic changes. No complete occlusion. Report reported and signed by Shaun Dunlap on 08/01/2021 1038 Normal [facility] MR knee LT wo conon 04-19-20 MR knee LT wo con [facility] Main [place] [address] [place], [place] [id number] MRI Report Signed Patient: Damien Frank MR#: [id number] : [id number] Acct:[id number] Age/Sex: 55 / M ADM Date: 04/19/21 Loc: [facility] Room: Type: [facility] Attending Dr: Cortez Hall PA-C Ordering Provider: [...] Guillermo Recio M.D.04/19/2021 5:39 PM Dictation Location: [place] [address] Transcribed By: [facility] 04/19/211738 Dictated By: Guillermo Recio II, MD 04/19/[id number] Signed By: 04/19/211738 [facility] Vital Signs Date Time Vital Sign Value Performing Clinician Facility 09-20-2023 08:50-0400 Body height 180.3 cm Kathy Lopez MD Work Phone: [facility] 09-20-2023 08:50-0400 Body mass index (BMI) [Ratio] 47.7 kg/m2 Kathy Lopez MD Work Phone: [facility] 09-20-2023 08:50-0400 Body weight 155.13 kg Kathy Lopez MD Work Phone: [facility] [employer] [facility] 09-20-2023 08:50-0400 Diastolic blood pressure 72 mm[Hg] Kathy Lopez MD Work Phone: [facility] 09-20-2023 08:50-0400 Heart rate 63 /min Kathy Lopez MD Work Phone: [facility] 09-20-2023 08:50-0400 SaO2% (BldA) [Mass fraction] 94 % Kathy Lopez MD Work Phone: [facility] [employer] [facility] 09-20-2023 08:50-0400 Systolic blood pressure 136 mm[Hg] Kathy Lopez MD Work Phone: [facility] 06-22-2023 11:21-0500 Body height 180.3 cm Eddie Dougherty MD Work Phone: [facility] 06-22-2023 11:21-0500 Body mass index (BMI) [Ratio] 50.01 kg/m2 Eddie Dougherty MD Work Phone: [facility] 06-22-2023 11:21-0500 Body weight 162.66 kg Eddie Dougherty MD Work Phone: [facility] 06-22-2023 11:21-0500 Diastolic blood pressure 80 mm[Hg] Eddie Dougherty MD Work Phone: [facility] 06-22-2023 11:21-0500 Heart rate 55 /min Eddie Dougherty MD Work Phone: [facility] 06-22-2023 11:21-0500 SaO2% (BldA) [Mass fraction] 99 % Eddie Dougherty MD Work Phone: [facility] 06-22-2023 11:21-0500 Systolic blood pressure 126 mm[Hg] Eddie Dougherty MD Work Phone: [employer] 08-22-2021 14:45-0500 Body height 180.34 cm Cortez Varma Other [employer] Other 08-22-2021 14:45-0500 Body mass index (BMI) [Ratio] 50.9 kg/m2 Cotrez Varma Other [employer] Other 08-22-2021 14:45-0500 Body temperature 98.9 [degF] Cortez Kojo Other [employer] Other 08-22-2021 14:45-0500 Body weight 165.56 kg Cortez Varma Other [employer] Other 08-22-2021 14:45-0500 Diastolic blood pressure 62 mm[Hg] Cortez Varma Other [employer] Other 08-22-2021 14:45-0500 SaO2% (BldA) [Mass fraction] 96 % Cortez Varma Other [employer] Other 08-22-2021 14:45-0500 Systolic blood pressure 140 mm[Hg] Cortez Varma Other [employer] Other Encounters Encounter Date Encounter Type Care Provider Facility Start: 01-24-2024 End: 01-24-2024 ambulatory MAYA MATTSON Not Available Start: 01-14-2024 End: 01-14-2024 ambulatory Maya Mattson MD Facility:[facility] Start: 11-14-2023 End: 11-14-2023 ambulatory MAYUR BUTLER [facility] Start: 10-22-2023 End: 10-24-2023 ambulatory ANDRE OSBORNE [facility] Start: 10-18-2023 End: 10-24-2023 ambulatory ANDRE R [facility] Start: 10-17-2023 End: 10-24-2023 ambulatory ANDRE R [facility] Start: 10-15-2023 End: 10-24-2023 [facility] Start: 10-11-2023 End: 10-24-2023 ambulatory ROBINSON R [facility] Start: 10-10-2023 End: 10-24-2023 ambulatory ANDRE R [facility] Start: 10-08-2023 End: 10-24-2023 ambulatory ANDRE R [facility] Start: 10-04-2023 End: 10-24-2023 [facility] Start: 10-03-2023 End: 10-24-2023 [facility] Start: 10-01-2023 End: 10-24-2023 [facility] Start: 09-27-2023 End: 10-24-2023 [facility] Start: 09-26-2023 End: 10-24-2023 [facility] Start: 09-24-2023 End: 10-24-2023 Clinical Support Andre Osborne MD Work Phone: [facility] Start: 09-20-2023 End: 09-24-2023 [facility] Start: 09-20-2023 End: 09-20-2023 Office outpatient visit 15 minutes Kathy Lopez MD Work Phone: [facility] Comment on above: ACS (acute coronary syndrome) ([facility]) (Primary Dx) Start: 09-19-2023 Telephone encounter Maya Hubbard CMA [facility] Start: 09-19-2023 End: 09-19-2023 ambulatory ANDRE R [facility] Start: 09-19-2023 End: 09-19-2023 Patient encounter procedure Andre Osborne MD Work Phone: [facility] Comment on above: Acute coronary syndr ome ([facility] Start: 09-17-2023 End: 09-17-2023 ambulatory [facility] Start: 09-17-2023 End: 09-17-2023 Patient encounter procedure Andre Osborne MD Work Phone: [facility] Comment on above: Acute coronary syndr ome ([facility] [place] Start: 09-13-2023 End: 09-13-2023 [facility] Start: 09-13-2023 End: 09-13-2023 Patient encounter procedure Andre Osborne MD Work Phone: [facility] Comment on above: Acute coronary syndr ome ([facility] [place] Start: 09-12-2023 End: 09-12-2023 [facility] Start: 09-10-2023 End: 09-24-2023 [facility] Start: 09-06-2023 End: 09-06-2023 [facility] Start: 09-06-2023 End: 09-06-2023 Patient encounter procedure Andre Osborne MD Work Phone: [facility] Comment on above: Acute coronary syndr ome ([facility] [place] Start: 09-05-2023 End: 09-05-2023 ambulatory ROBINSON [facility] Start: 09-05-2023 End: 09-05-2023 Patient encounter procedure Andre Osborne MD Work Phone: [facility] Comment on above: Acute coronary syndr ome ([facility] [place] Start: 09-03-2023 End: 09-24-2023 ambulatory [facility] Start: 08-30-2023 End: 08-30-2023 [facility] Start: 08-30-2023 End: 08-30-2023 Patient encounter procedure Andre Osborne MD Work Phone: [facility] Comment on above: Acute coronary syndr ome ([facility] [place] Start: 08-29-2023 End: 08-29-2023 ambulatory [facility] Start: 08-29-2023 End: 08-29-2023 Patient encounter procedure Andre Osborne MD Work Phone: [facility] Comment on above: Acute coronary syndr ome ([facility] [place] Start: 08-27-2023 End: 09-24-2023 [facility] Start: 08-23-2023 End: 08-23-2023 [facility] Start: 08-23-2023 End: 08-23-2023 Patient encounter procedure Andre Osborne MD Work Phone: [facility] Comment on above: Acute coronary syndr ome ([facility] [place] Start: 08-22-2023 End: 08-22-2023 [facility] Start: 08-22-2023 End: 08-22-2023 Patient encounter procedure Andre Osborne MD Work Phone: [facility] Comment on above: Acute coronary syndr ome ([facility] Start: 08-20-2023 End: 08-20-2023 [facility] Start: 08-16-2023 End: 08-16-2023 [facility] Start: 08-15-2023 End: 08-15-2023 ambulatory ROBINSON [facility] Start: 08-15-2023 End: 08-15-2023 Patient encounter procedure Andre Osborne MD Work Phone: [facility] Comment on above: Acute coronary syndr ome ([facility] [place] Start: 08-13-2023 End: 08-13-2023 ambulatory [facility] Start: 08-13-2023 End: 08-13-2023 Patient encounter procedure Andre Osborne MD Work Phone: [facility] Comment on above: Acute coronary syndr ome ([facility] [place] Start: 08-09-2023 End: 08-09-2023 [facility] Start: 08-09-2023 End: 08-09-2023 Patient encounter procedure Andre Osborne MD Work Phone: [facility] Comment on above: Acute coronary syndr ome ([facility] [place] Start: 08-08-2023 End: 08-08-2023 [facility] Start: 08-06-2023 End: 08-06-2023 [facility] Start: 08-06-2023 End: 08-06-2023 Patient encounter procedure Andre Osborne MD Work Phone: [facility] Comment on above: Acute coronary syndr ome ([facility] [place] Start: 08-02-2023 End: 08-02-2023 ambulatory [facility] Start: 08-02-2023 End: 08-02-2023 Patient encounter procedure Andre Osborne MD Work Phone: [facility] Comment on above: Acute coronary syndr ome ([facility] [place] Start: 08-01-2023 End: 08-01-2023 [facility] Start: 08-01-2023 End: 08-01-2023 Patient encounter procedure Andre Osborne MD Work Phone: [facility] Comment on above: Acute coronary syndr ome ([facility] [place] Start: 07-30-2023 End: 07-30-2023 [facility] Start: 07-26-2023 End: 07-26-2023 [facility] Start: 07-26-2023 End: 07-26-2023 Patient encounter procedure Andre Osborne MD Work Phone: [facility] Comment on above: Acute coronary syndr ome ([facility] Start: 07-25-2023 End: 07-25-2023 [facility] Start: 07-25-2023 End: 07-25-2023 Patient encounter procedure Andre Osborne MD Work Phone: [facility] Comment on above: Acute coronary syndr ome ([facility] [place] Start: 07-23-2023 End: 07-23-2023 [facility] Start: 07-19-2023 End: 07-26-2023 [facility] Start: 07-18-2023 End: 07-18-2023 [facility] Start: 07-18-2023 End: 07-18-2023 Patient encounter procedure Andre Osborne MD Work Phone: [facility] Comment on above: Acute coronary syndr ome ([facility] [place] Start: 07-16-2023 End: 07-16-2023 [facility] Start: 07-12-2023 End: 07-12-2023 ambulatory ROBINSON [facility] Start: 07-12-2023 End: 07-12-2023 Patient encounter procedure Andre Osborne MD Work Phone: [facility] Comment on above: Acute coronary syndr ome ([facility] [place] Start: 07-11-2023 End: 07-11-2023 [facility] Start: 07-11-2023 End: 07-11-2023 Patient encounter procedure Andre Osborne MD Work Phone: [facility] Comment on above: Acute coronary syndr ome ([facility] [place] Start: 07-09-2023 End: 07-09-2023 [facility] Start: 07-09-2023 End: 07-09-2023 Patient encounter procedure Andre Osborne MD Work Phone: [facility] Comment on above: Acute coronary syndr ome ([facility] [place] Start: 07-06-2023 End: 07-06-2023 [facility] Start: 06-28-2023 End: 06-28-2023 ambulatory MAYA SRINIVASAN Not Available Start: 06-27-2023 Orders Only Maria Elena Nguyen RMA [facility] Comment on above: SOB (shortness of br eath) Start: 06-22-2023 End: 06-22-2023 ambulatory EDDIE DOUGHERTY [facility] Start: 06-22-2023 End: 06-22-2023 Office outpatient visit 15 minutes Eddie Dougherty MD Work Phone: [facility] Comment on above: S/P right coronary a rtery (RCA) stent placement (Primary Dx); Essential hypertension; Pure hypercholesterolemia; History of DVT (deep vein thrombosis); Morbid obesity with BMI of 50.0-59.9, adult ([facility]); SOB (shortness of breath) Start: 06-21-2023 Telephone encounter Maria Elena huitron [facility] Start: 06-19-2023 End: 06-25-2023 ambulatory MAYA MATTSON [facility] Start: 06-15-2023 End: 06-15-2023 ambulatory MAYA MATTSON Not Available Start: 06-10-2023 ambulatory [facility] Start: 06-05-2023 End: 06-05-2023 ambulatory MAYA MATTSON Not Available Start: 05-21-2023 End: 05-21-2023 ambulatory Elayne Arreola MD Facility:[facility] Start: 04-23-2023 End: 04-23-2023 ambulatory Elayne Arreola MD Facility:[facility] Start: 04-13-2022 ambulatory Ford Oreilly ty:[facility] Start: 04-11-2022 End: 04-11-2022 Emergency department patient visit Dieter Duarte Facility:[facility] Start: 04-11-2022 End: 04-12-2022 ambulatory Diego CASTRO Facility:[facility] Start: 09-01-2021 End: 09-01-2021 ambulatory Cortez Varma Other [employer] Other Start: 09-01-2021 Telephone encounter Cortez Vazquez [facility] Start: 08-22-2021 End: 08-22-2021 ambulatory Cortez Varma Other [employer] Other Start: 08-22-2021 Office outpatient ne w 45 minutes Cortez Varma [facility] Procedures Date Procedure Procedure Detail Performing [...] Microalbumin [Mass/volume] in Urine by Test strip [facility] 1 Start: 07-18-2023 End: 07-18-2023 Gluc bld [...] Td Vaccines (8 - Td or Tdap) [facility] Start: 09-19-2024 Adult BMI Screening Adult BMI Screen ing [facility] Start: 09-19-2024 Tobacco Screening Tobacco Screening [facility] Start: 07-19-2024 Urine screening for protein Urine Microalbumin [facility] Start: 06-22-2024 Adult BMI Screening Adult BMI Screen ing [facility] Start: 06-22-2024 Tobacco Screening Tobacco Screening [facility] Start: 06-11-2024 Adult BMI Screening Adult BMI Screen ing [facility] Start: 03-28-2024 End: 03-28-2024 Patient encounter procedure 03/28/2024 8:30 AM EDT Office Visit [facility] [address] [place] [address] Eddie Dougherty MD [address] [place] [address] [facility] Start: 02-24-2024 Influenza vaccination Influenza Vacc ine [facility] Start: 10-10-2023 End: 10-10-2023 Clinical Support 10/10/2023 8:00 AM EDT Clinical Support [facility] [address] [place] [address] Andre Osborne MD [address] [place] [address] [facility] Start: 10-08-2023 End: 10-08-2023 Patient encounter procedure [facility] Start: 10-04-2023 Adult BMI Follow Up Plan Adult BMI F ollow Up Plan [facility] Start: 10-04-2023 Tobacco Screening Tobacco Screening [facility] Start: 10-04-2023 End: 10-04-2023 Patient encounter procedure [facility] Start: 10-03-2023 End: 10-03-2023 Patient encounter procedure [facility] Start: 10-01-2023 End: 10-01-2023 Patient encounter procedure [facility] Start: 09-27-2023 End: 09-27-2023 Patient encounter procedure 09/27/2023 9:00 AM EDT Office Visit [facility] [address] [place] [address] Andre Osborne MD [address] [place] [address] [facility] Start: 09-26-2023 End: 09-26-2023 Patient encounter procedure [facility] Start: 09-24-2023 End: 09-24-2023 Patient encounter procedure [facility] Start: 09-20-2023 End: 09-20-2023 Patient encounter procedure [facility] Start: 09-19-2023 End: 09-19-2023 Patient encounter procedure 09/19/2023 9:00 AM EDT Office Visit [facility] [address] [place] [address] Andre Osborne MD [address] [place] [address] [facility] Start: 09-17-2023 End: 09-17-2023 Patient encounter procedure 09/17/2023 9:00 AM EDT Office Visit [facility] [address] [place] [address] Andre Osborne MD [address] [place] [address] [facility] Start: 09-13-2023 End: 09-13-2023 Patient encounter procedure 09/13/2023 9:00 AM EDT Office Visit [facility] [address] [place] [address] Andre Osborne MD [address] [place] [address] [facility] Start: 09-12-2023 End: 09-12-2023 Patient encounter procedure 09/12/2023 9:00 AM EDT Office Visit [facility] [address] [place] [address] Andre Osborne MD [address] [place] [address] [facility] Start: 09-10-2023 End: 09-10-2023 Patient encounter procedure 09/10/2023 9:00 AM EDT Office Visit [facility] [address] [place] [address] Andre Osborne MD [address] [place] [address] [facility] Start: 09-06-2023 End: 09-06-2023 Patient encounter procedure 09/06/2023 9:00 AM EDT Office Visit [facility] [address] [place] [address] Andre Osborne MD [address] [place] [address] [facility] Start: 09-05-2023 End: 09-05-2023 Patient encounter procedure 09/05/2023 9:00 AM EDT Office Visit [facility] [address] [place] [address] Andre Osborne MD [address] [place] [address] [facility] Start: 09-03-2023 End: 09-03-2023 Patient encounter procedure 09/03/2023 9:00 AM EDT Office Visit [facility] [address] [place] [address] Andre Osborne MD [address] [place] [address] [facility] Start: 08-30-2023 End: 08-30-2023 Patient encounter procedure 08/30/2023 9:00 AM EST Office Visit [facility] [address] [place] [address] Andre Osborne MD [address] [place] [address] [facility] Start: 08-29-2023 End: 08-29-2023 Patient encounter procedure 08/29/2023 9:00 AM EST Office Visit [facility] [address] [place] [address] Andre Osborne MD [address] [place] [address] [facility] Start: 08-27-2023 End: 08-27-2023 Patient encounter procedure 08/27/2023 9:00 AM EST Office Visit [facility] [address] [facility] [place] [address] Andre Osborne MD [address] [place] [address] [facility] Start: 08-23-2023 End: 08-23-2023 Patient encounter procedure 08/23/2023 9:00 AM EST Office Visit [facility] [address] [place] [place] [address] Andre Osborne MD [address] [place] [address] [facility] Start: 08-22-2023 End: 08-22-2023 Patient encounter procedure 08/22/2023 9:00 AM EST Office Visit [facility] [address] [place] [place] [address] Andre Osborne MD [address] [place] [address] [facility] Start: 08-20-2023 End: 08-20-2023 Patient encounter procedure 08/20/2023 9:00 AM EST Office Visit [facility] [address] [place] [address] Andre Osborne MD [address] [place] [address] [facility] Start: 08-16-2023 End: 08-16-2023 Patient encounter procedure 08/16/2023 9:00 AM EST Office Visit [facility] [address] [place] [address] Andre Osborne MD [address] [place] [address] [facility] Start: 08-15-2023 End: 08-15-2023 Patient encounter procedure 08/15/2023 9:00 AM EST Office Visit [facility] [address] [place] [address] Andre Osborne MD [address] [place] [address] [facility] Start: 08-13-2023 End: 08-13-2023 Patient encounter procedure 08/13/2023 9:00 AM EST Office Visit [facility] [address] [place] [address] Andre Osborne MD [address] [place] [address] [facility] Start: 08-09-2023 End: 08-09-2023 Patient encounter procedure 08/09/2023 9:00 AM EST Office Visit [facility] [address] [place] [address] Andre Osborne MD [address] [place] [address] [facility] Start: 08-08-2023 End: 08-08-2023 Patient encounter procedure 08/08/2023 9:00 AM EST Office Visit [facility] [address] [place] [address] Andre Osborne MD [address] [place] [address] [facility] Start: 08-06-2023 End: 08-06-2023 Patient encounter procedure 08/06/2023 9:00 AM EST Office Visit [facility] [address] [place] [address] Andre Osborne MD [address] [place] [address] [facility] Start: 08-02-2023 End: 08-02-2023 Patient encounter procedure 08/02/2023 9:00 AM EST Office Visit [facility] [address] [place] [address] Andre Osborne MD [address] [place] [address] [facility] Start: 08-01-2023 End: 08-01-2023 Patient encounter procedure 08/01/2023 9:00 AM EST Office Visit [facility] [address] [place] [address] Andre Osborne MD [address] [place] [address] [facility] Start: 07-30-2023 End: 07-30-2023 Patient encounter procedure 07/30/2023 9:00 AM EST Office Visit [facility] [address] [place] [address] Andre Osborne MD [address] [place] [address] [facility] Start: 07-26-2023 End: 07-26-2023 Patient encounter procedure 07/26/2023 9:00 AM EST Office Visit [facility] [address] [place] [address] Andre Osborne MD [address] [place] [address] [facility] Start: 07-25-2023 End: 07-25-2023 Patient encounter procedure 07/25/2023 9:00 AM EST Office Visit [facility] [address] [place] [address] Andre Osborne MD [address] [place] [address] [facility] Start: 07-23-2023 End: 07-23-2023 Patient encounter procedure 07/23/2023 9:00 AM EST Office Visit [facility] [address] [place] [address] Andre Osborne MD [address] [place] [address] [facility] Start: 07-19-2023 End: 07-19-2023 Patient encounter procedure 07/19/2023 9:00 AM EST Office Visit [facility] [address] [place] [address] Andre Osborne MD [address] [place] [address] [facility] Start: 07-18-2023 End: 07-18-2023 Patient encounter procedure 07/18/2023 9:00 AM EST Office Visit [facility] [address] [place] [address] Andre Osborne MD [address] [place] [address] [facility] Start: 07-16-2023 End: 07-16-2023 Patient encounter procedure 07/16/2023 9:00 AM EST Office Visit [facility] [address] [place] [address] Andre Osborne MD [facility] [facility] [place] [address] [facility] Start: 07-12-2023 End: 07-12-2023 Patient encounter procedure 07/12/2023 9:00 AM EST Office Visit [facility] [address] [place] [address] Andre Osborne MD [facility] [place] [address] [facility] Start: 07-11-2023 End: 07-11-2023 Patient encounter procedure 07/11/2023 9:00 AM EST Office Visit [facility] [address] [place] [address] Andre Osborne MD [address] [place] [address] [facility] Start: 06-22-2023 End: 06-22-2024 XR Chest PA and Lateral X-ray chest 2 views Imaging Routine SOB (shortness of breath) Expected: 06/22/2023, Expires: 06/22/2024 [facility] Work Phone: Comment on above: Expected: 06/22/2023 , Expires: 06/22/2024 Start: 06-22-2023 End: 06-22-2023 Patient encounter procedure 06/22/2023 11:30 AM EST [facility] [address] [place] [address] Eddie Dougherty MD [address] [place] [address] [facility] Start: 02-23-2023 Influenza vaccination Influenza Vacc ine [facility] [employer] [facility] Start: 2017 Administration of varicella zoster vaccine Zoster (Shingles) Vacc[facility] of 2) [facility] Start: 1985 Diabetic foot examination Diabetic F oot Exam [facility] Start: 1979 Depression Screening Depression Scre ening [facility] Start: 1967 Glaucoma screening Diabetic Op [facility]thalmology [facility]am [facility] Start: 1967 Urine screening for protein Urine Microalbumin [facility] End: 12-22-2023 Ambulatory referral to Cardiac Rehab Ambulatory referral to Cardiac Rehab Card Rehab Routine S/P right coronary artery (RCA) stent placement Per Treatment Plan for 36 Occurrences starting 06/22/2023 until 12/22/2023 [facility] Comment on above: Per Treatment Plan f or 36 Occurrences starting 06/22/2023 until 12/22/2023 End: 09-19-2024 Basic metabolic 2000 panel - Serum or Plasma Basic Metabolic Panel Lab Routine ACS (acute coronary syndrome) ([facility]) 1 Occurrences starting 09/20/2023 until 09/19/2024 [employer] Work Phone: Comment on above: 1 Occurrences starti ng 09/20/2023 until 09/19/2024 CARDIOPULMONARY REHABILITATION CARDIOPULMONARY REHABILITATION Cardiac Services Ordered: 07/09/2023 [facility] Comment on above: Ordered: 07/09/2023 CARDIOPULMONARY [...] REHABILITATION CARDIOPULMONARY REHABILITATION Cardiac Services Ordered: 09/13/2023 [facility] Comment on above: Ordered: 09/13/2023 CARDIOPULMONARY REHABILITATION CARDIOPULMONARY REHABILITATION Cardiac Services Ordered: 09/19/2023 [facility] Comment on above: Ordered: 09/19/2023 CARDIOPULMONARY REHABILITATION CARDIOPULMONARY REHABILITATION Cardiac Services Ordered: 09/24/2023 [facility] Comment on above: Ordered: 09/24/2023 End: 09-19-2024 Magnesium [Mass/volume] in Serum or Plasma Magnesium Lab Routine ACS (acute coronary syndrome) ([facility]) 1 Occurrences starting 09/20/2023 until 09/19/2024 [facility] Comment on above: 1 Occurrences starti ng 09/20/2023 until 09/19/2024 End: 06-22-2024 Natriuretic peptide B [Mass/volume] in Blood BNP Lab Routine SOB (shortness of breath) 1 Occurrences starting 06/22/2023 until 06/22/2024 [facility] Comment on above: 1 Occurrences starti ng 06/22/2023 until 06/22/2024 Immunizations Immunization Date Immunization Notes Care Provider Komal blackman 07-04-2018 influenza virus vaccine, unspecified formulation Maria Elena Nguyen [facility] Payers Date Payer Category Payer Unknown [id number] 2023 Unknown [id number] 2022 Unknown [id number] 2022 Worker's Compensation [id number] Worker's Compensation WORKER'S C OMPENSATION WORKER'S [id number]-[id number] ONLY [id number] 2019-Present [id number] [id number] .2.7.3.374120.315 1967 Unknown [id number] 2.16.840.1.482675.3.579 .2.727 1967 Unknown [id number] 2.16.840.1.049949.3.579 .2.727 1967 Unknown [id number] 2.16.840.1.261373.3.579 .2.1285 1967 Unknown [id number] 2.16.840.1.953122.3.579 .2.1285 1967 Unknown [id number] 2.16.840.1.352819.3.579 .2.1285 1967 Unknown [id number] 2.16.840.1.008880.3.579 .2.1285 1967 Unknown [id number] 2.16.840.1.970042.3.579 .2.1285 1967 Unknown [id number] 2.16.840.1.091758.3.579 .2.1285 1967 Unknown [id number] 2.16.840.1.494023.3.579 .2.1285 1967 Unknown [id number] 2.16.840.1.926602.3.579 .2.1285 1967 Unknown [id number] 2.16.840.1.536443.3.579 .2.1285 1967 Unknown [id number] 2.16.840.1.783507.3.579 .2.1285 1967 Unknown [id number] 2.16.840.1.729926.3.579 .2.1285 1967 Unknown [id number] 2.16.840.1.092816.3.579 .2.1285 1967 Unknown [id number] 2.16.840.1.123191.3.579 .2.1285 1967 Unknown [id number] 2.16.840.1.535950.3.579 .2.1285 1967 Unknown [id number] 2.16.840.1.669987.3.579 .2.1285 1967 Unknown [id number] 2.16.840.1.730305.3.579 .2.1285 1967 Unknown [id number] 2.16.840.1.796146.3.579 .2.1285 1967 Unknown [id number] 2.16.840.1.169754.3.579 .2.1285 1967 Unknown [id number] 2.16.840.1.251803.3.579 .2.1285 1967 Unknown [id number] 2.16.840.1.385957.3.579 .2.1285 1967 Unknown [id number] 2.16.840.1.849633.3.579 .2.1285 1967 Unknown [id number] 2.16.840.1.963433.3.579 .2.1285 1967 Unknown [id number] 2.16.840.1.268092.3.579 .2.1285 1967 Unknown [id number] 2.16.840.1.162313.3.579 .2.1285 1967 Unknown [id number] 2.16.840.1.141377.3.579 .2.1285 1967 Unknown [id number] 2.16.840.1.246437.3.579 .2.1285 1967 Unknown [id number] 2.16.840.1.982152.3.579 .2.1285 1967 Unknown [id number] 2.16.840.1.591432.3.579 .2.1285 1967 Unknown [id number] 2.16.840.1.371239.3.579 .2.1285 1967 Unknown [id number] 2.16.840.1.704610.3.579 .2.1285 1967 Unknown [id number] 2.16.840.1.252594.3.579 .2.1285 1967 Unknown [id number] 2.16.840.1.276179.3.579 .2.1285 1967 Unknown [id number] 2.16.840.1.546953.3.579 .2.1285 1967 Unknown [id number] 2.16.840.1.261091.3.579 .2.1285 1967 Unknown [id number] 2.16.840.1.782161.3.579 .2.1285 1967 Unknown [id number] 2.16.840.1.946946.3.579 .2.1285 1967 Unknown [id number] 2.16.840.1.295112.3.579 .2.1285 1967 Unknown [id number] 2.16.840.1.182501.3.579 .2.1285 1967 Unknown [id number] 2.16.840.1.061587.3.579 .2.1285 1967 Unknown [id number] 2.16.840.1.146607.3.579 .2.1285 1967 Unknown [id number] 2.16.840.1.829349.3.579 .2.1285 1967 Unknown [id number] 2.16.840.1.033872.3.579 .2.1285 1967 Unknown [id number] 2.16.840.1.432977.3.579 .2.1285 1967 Unknown [id number] 2.16.840.1.384384.3.579 .2.1285 1967 Unknown [id number] 2.16.840.1.726822.3.579 .2.1285 1967 Unknown [id number] 2.16.840.1.984204.3.579 .2.1285 1967 Unknown [id number] 2.16.840.1.274521.3.579 .2.1285 1967 Unknown [id number] 2.16.840.1.315074.3.579 .2.1285 1967 Unknown [id number] 2.16.840.1.065553.3.579 .2.1285 1967 Unknown [id number] 2.16.840.1.413917.3.579 .2.1285 1967 Unknown [id number] 2.16.840.1.390863.3.579 .2.1285 1967 Unknown [id number] 2.16.840.1.461508.3.579 .2.1285 1967 Unknown [id number] 2.16.840.1.711625.3.579 .2.1285 1967 Unknown [id number] 2.16.840.1.929415.3.579 .2.1285 1967 Unknown [id number] 2.16.840.1.091553.3.579 .2.1285 1967 Unknown [id number] 2.16.840.1.151913.3.579 .2.1285 1967 Unknown [id number] 2.16.840.1.407826.3.579 .2.1285 1967 Unknown [id number] 2.16.840.1.077222.3.579 .2.1285 1967 Unknown [id number] 2.16.840.1.247765.3.579 .2.1285 1967 Unknown [id number] 2.16.840.1.032186.3.579 .2.1285 1967 Unknown [id number] 2.16.840.1.784708.3.579 .2.1285 1967 Unknown [id number] 2.16.840.1.589068.3.579 .2.1285 1967 Unknown [id number] 2.16.840.1.550994.3.579 .2.1285 1967 Unknown [id number] 2.16.840.1.440013.3.579 .2.196 1967 Unknown [id number] 2.16.840.1.765068.3.579 .2.196 1967 Unknown [id number] 2.16.840.1.109937.3.579 .2.196 1967 Unknown [id number] 2.16.840.1.464882.3.579 .2.9 1967 Unknown [id number] 2.16.840.1.710965.3.579 .2.9 1967 Unknown [id number] 2.16.840.1.337162.3.579 .2.9 1967 Unknown [id number] 2.16.840.1.650777.3.579 .2.9 1967 Unknown [id number] 2.16.840.1.140174.3.579 .2.9 1967 Unknown [id number] 2.16.840.1.573905.3.579 .2.9 1967 Unknown [id number] 2.16.840.1.228843.3.579 .2.9 Private Health Insurance [id number] 2.16.840.1.542643.19 Social History Date Type Detail Facility Unknown if ever smoked [employer] Other Start: 08-05-2020 End: 10-03-2022 Sex Assigned At [facility] Start: 10-03-2022 Tobacco smoking status NHIS Never smoked tobacco [facility] Start: 10-03-2022 Tobacco use and exposure Smokeless tobacco non-user [facility] Start: 06-12-2023 End: 09-20-2023 Alcohol intake Current drinker of alcohol (finding) [facility] Start: 08-05-2020 End: 10-03-2022 History of Social function [facility] Are you worried or concerned that in the next two months you may not have stable housing that you own, rent or stay in as a part of a household? No [facility] Start: 07-18-2019 Alcohol Comment occassional [facility] Start: 1965 Sex Assigned At Not on file P [employer] [employer] [facility] Medical Equipment Procedure Code Equipment Code Equipment Origin al Text Equipment Identifier Dates System Cor Stnt 3.5mm X 12mm 145cm Bernard [employer] Mtlnk Tom - [id number], [id number] FDA Start: 06-11-2023 Use strip as directed by glucometer [id number] Start: 06-12-2023 Goals Date Patient Goal Desired Activity /State Personal health goal Comment on above: Formatting of this n ote might be different from the original. Evaluation of progress towards goal: home self care and family support Clinical Notes 08-22-2021 to 09-20-2023 Kathy Lopez MD - 09/20/2023 8:45 AM EDTTelephone Encounter - Maya Hubbard CMA - 09/19/2023 9:53 AM EDTTelephone Encounter - Maya Hubbard CMA - 09/19/2023 9:53 AM EDT Note Date & Type Note Facility 09-20-2023 History of Present illness Narrative Damien Frank Date of visit: 09/20/2023 Date of : 1965 Age: 58 y.o. Patient Active Problem List Diagnosis Essential (primary) hypertension Anxiety Gastroesophageal reflux disease without esophagitis Obstructive sleep apnea syndrome Morbid obesity ([facility]) Ventral hernia Chronic deep vein thrombosis (DVT) of lower extremity ([facility]) ACS (acute coronary syndrome) ([facility]) Unstable angina ([facility]) DM2 (diabetes mellitus, type 2) ([facility]) Allergies Allergen Reactions Amoxicillin Other Reaction(s): Unknown [...] Arthritis Asthma DM2 (diabetes mellitus, type 2) ([facility]) 06/10/2023 DVT (deep venous thrombosis) ([facility]) chronic LLE on Eliquis Hypertension Obesity Visual impairment No data recorded No data recorded No data recorded Past Surgical History: Procedure Laterality Date APPENDECTOMY ARTHROSCOPY MENISCECTOMY KNEE & CPT 76350 Left 09/20/2021 Performed by Mason Vang Jr., DO at [facility] Cardiac catheterization N/A 06/11/2023 Performed by Andre Osborne MD at [facility]ARD[facility]AC [facility]ATH [facility]S CARPAL TUNNEL RELEASE Bilateral Coronary angiogram and left ventricular gram/pressure N/A 06/11/2023 Performed by Andre Osborne MD at [facility] CARDIAC CATH LABS HERNIA REPAIR x4 NECK SURGERY C6&7 [facility] 2006 SHOULDER ARTHROSCOPY Stent drug-eluting right coronary artery N/A 06/11/2023 Performed by Andre Osborne MD at [facility] CARDIAC CATH LABS Family History Problem Relation [...] PCP: Maya Mattson MD Referring Physician: Maya Mattsno MD [address] [place] [address] documented in this encounter [facility] 09-19-2023 Miscellaneous Notes Called patient to remind them to bring their most current copy of their medication list with them to their appt. Patient verbalizes understanding. documented in this encounter [facility] 09-19-2023 Telephone encounter Note Called patient to remind them to bring their most current copy of their medication list with them to their appt. Patient verbalizes understanding. [facility] 06-22-2023 History of Present illness Narrative Damien Frank Date of visit: 06/22/2023 Date of : 1965 Age: 58 y.o. Patient Active Problem List Diagnosis Essential (primary) hypertension Anxiety Gastroesophageal reflux disease without esophagitis Obstructive sleep apnea syndrome Morbid obesity ([facility]) Ventral hernia Chronic deep vein thrombosis (DVT) of lower extremity ([facility]) ACS (acute coronary syndrome) ([facility]) Acute coronary syndrome ([facility]) Unstable angina ([facility]) DM2 (diabetes mellitus, type 2) ([facility]) Allergies Allergen Reactions Amoxicillin Other Reaction(s): Unknown [...] follow-up visit. Discharge earlier this month from [facility] after being admitted with unstable angina underwent [...] Arthritis Asthma DM2 (diabetes mellitus, type 2) ([facility]) 06/10/2023 DVT (deep venous thrombosis) ([facility]) chronic LLE on Eliquis Hypertension Obesity Visual impairment No data recorded No data recorded No data recorded Past Surgical History: Procedure Laterality Date APPENDECTOMY ARTHROSCOPY MENISCECTOMY KNEE & CPT 05254 Left 09/20/2021 Performed by Mason Vang Jr., DO at [facility] Cardiac catheterization N/A 06/11/2023 Performed by Andre Osborne MD at [facility] CARDIAC CATH LABS CARPAL TUNNEL RELEASE Bilateral Coronary angiogram and left ventricular gram/pressure N/A 06/11/2023 Performed by Andre Osborne MD at [facility] CARDIAC CATH LABS HERNIA REPAIR x4 NECK SURGERY C6&7 [facility] 2006 SHOULDER ARTHROSCOPY Stent drug-eluting right coronary artery N/A 06/11/2023 Performed by Andre Osborne MD at [facility] CARDIAC CATH LABS Family History Problem Relation [...] Morbid obesity with BMI of 50.0-59.9, adult ([facility]) Previous cardiac related labs and test results [...] Referring Physician: Maya Mattson MD [address] [place] [address] documented in this encounter [facility] 06-21-2023 Miscellaneous Notes Unable to remind patient of appointment. Phone was not accepting calls at this time.DEEPAK Mojica documented in this encounter [facility] 06-21-2023 Telephone encounter Note Unable to remind patient of appointment. Phone was not accepting calls at this time.DEEPAK Mojica [facility] 08-22-2021 Evaluation note Encounter Date Diagnosis [...] that that is indicated in this scenario. [place] [employer] Other Evaluation noteNo InformationNortIndiana Regional Medical Center VIAP Other Evaluation note* Diagnosis S/P right coronary artery (RCA) stent placement- Primary Essential hypertension Unspecified essential hypertension Pure hypercholesterolemia History of DVT (deep vein thrombosis) Morbid obesity with BMI of 50.0-59.9, adult (CMS-HCC) SOB (shortness of breath) Shortness of breath documented in this encounter [facility]* Diagnosis SOB (shortness of breath) Shortness of breath [facility]* Diagnosis Acute coronary syndrome (CMS-HCC) Intermediate coronary syndrome documented in this encounter [facility]* Diagnosis Acute coronary syndrome (CMS-HCC) Intermediate coronary syndrome documented in this encounter [facility]* Diagnosis Acute coronary syndrome (CMS-HCC) Intermediate coronary syndrome documented in this encounter [facility]* Diagnosis Acute coronary syndrome (CMS-HCC) Intermediate coronary syndrome documented in this encounter [facility]* Diagnosis Acute coronary syndrome (CMS-HCC) Intermediate coronary syndrome documented in this encounter [facility] Diagnosis Acute coronary syndrome (CMS-HCC) Intermediate coronary syndrome documented in this encounter [facility]* Diagnosis Acute coronary syndrome (CMS-HCC) Intermediate coronary syndrome documented in this encounter [facility]* Diagnosis Acute coronary syndrome (CMS-HCC) Intermediate coronary syndrome documented in this encounter [facility]* Diagnosis Acute coronary syndrome (CMS-HCC) Intermediate coronary syndrome documented in this encounter [facility]* Diagnosis Acute coronary syndrome (CMS-HCC) Intermediate coronary syndrome documented in this encounter [facility]* Diagnosis Acute coronary syndrome (CMS-HCC) Intermediate coronary syndrome documented in this encounter [facility]* Diagnosis Acute coronary syndrome (CMS-HCC) Intermediate coronary syndrome documented in this encounter [facility]* Diagnosis Acute coronary syndrome (CMS-HCC) Intermediate coronary syndrome documented in this encounter [facility]* Diagnosis Acute coronary syndrome (CMS-HCC) Intermediate coronary syndrome documented in this encounter [facility]* Diagnosis Acute coronary syndrome (CMS-HCC) Intermediate coronary syndrome documented in this encounter [facility]* Diagnosis Acute coronary syndrome (CMS-HCC) Intermediate coronary syndrome documented in this encounter [facility]* Diagnosis Acute coronary syndrome (CMS-HCC) Intermediate coronary syndrome documented in this encounter [facility]* Diagnosis Acute coronary syndrome (CMS-HCC) Intermediate coronary syndrome documented in this encounter [facility]* Diagnosis Acute coronary syndrome (CMS-HCC) Intermediate coronary syndrome documented in this encounter [facility]* Diagnosis ACS (acute coronary syndrome) (CMS-HCC)- Primary Intermediate coronary syndrome documented in this encounter [facility] SystemHistory general Narrative - Reported* Type Description Date Medical History hypertension Medical History sleep apnea Medical History asthma Medical History blood clot left lower leg Surgical History C6-C7 neck fusion Surgical History hernia repair x4 Surgical History appendectomy Surgical History Bilateral CTR Surgical History right shoulder Hospitalization History appendectomy goAct Other InstructionsNot on filedocumented in this encounter [facility] System[facility]ructionsNot on filedocumented in this encounter [facility] SystemInstructionsNot on filedocumented in this encounter [facility] [employer] SystemInstructionsNot on filedocumented in this encounter [facility] SystemInstructionsNot on filedocumented in this encounter [facility] SystemInstructionsNot on filedocumented in this encounter [facility] SystemReason for referral (narrative)* Consultation (Routine) - Pending Review Specialty Diagnoses / Procedures Referred By Contac t Referred To Contact Cardiac Rehabilitation Diagnoses S/P right coronary artery (RCA) stent placement Procedures Ambulatory referral to Cardiac Rehab Eddie Dougherty MD [address] [place] [address] [facility] Card[facility] Rehab Billing [address] [place] [address] Referral ID Status Reason Start Date Expiration Date V isits Requested Visits Authorized [id number] Pending Review 06/22/2023 06/21/2024 36 36 [facility] for visit Narrative* Consultation (Routine) - Authorized Specialty Diagnoses / Procedures Referred By Contac t Referred To Contact Cardiac Rehabilitation Diagnoses Acute coronary syndrome (CMS-HCC) Procedures [facility] [place] Andre Osborne MD [address] [place] [address] [facility] Card[facility] Rehab Billing [address] [place] [address] Referral ID Status Reason Start Date Expiration Date V isits Requested Visits Authorized [id number] Authorized 06/11/2023 06/10/2024 36 36 [facility] for visit Narrative* Consultation (Routine) - Pending Review Specialty Diagnoses / Procedures Referred By Petra t Referred To Contact Cardiac Rehabilitation Diagnoses Acute coronary syndrome ([facility]) Procedures [facility] [place] Andre Osborne MD [address] [place] [address] [facility] Card[facility] Rehab Billing [address] [place] [address] Referral ID Status Reason Start Date Expiration Date V isits Requested Visits Authorized [id number] Pending Review 06/11/2023 06/10/2024 36 36 [facility] Summary Purpose Family History No Family [...] section and content) DATE CREATED AUTHOR 08/01/2021 [facility] Me dical Specialist DATE CREATED AUTHOR AUTHOR'S ORGANIZ ATION 08/18/2021 [facility] DATE CREATED AUTHOR AUTHOR'S ORGANIZ ATION 04/18/[address] [facility] DATE CREATED AUTHOR AUTHOR'S ORGANIZ ATION 06/14/2023 [facility] DATE CREATED AUTHOR AUTHOR'S ORGANIZ ATION 11/17/2023 [facility] DATE CREATED AUTHOR AUTHOR'S ORGANIZ ATION 01/19/2024 [facility] DATE CREATED AUTHOR AUTHOR'S ORGANIZ ATION 01/26/2024 [facility] dical Specialists EPIC REASON FOR VISIT (unrecogniz ed section and content) Reason Comments Follow-up EST PT TTH s/p Cath/ stent SCHED W/ Reason Comments Follow-up 3 MONTH Care Teams (unrecognized sec tion and content) Shirt Presser Relationship Specialty Start Date End Date Maya Mattson MD [address] [place] [address] PCP - General Family Medicine 08/15/17 Shirt Presser Relationship Specialty Start Date End Date Maya Mattson MD [address] [place] [address] PCP - General Family Medicine 08/15/17 Shirt Presser Relationship Specialty Start Date End Date Maya Mattson MD [address] [place] [address] PCP - General Family Medicine 08/15/17 Shirt Presser Relationship Specialty Start Date End Date Maya Mattson MD [address] [place] [address] PCP - General Family Medicine 08/15/17 Shirt Presser Relationship Specialty Start Date End Date Maya Mattson MD [address] [place] [address] PCP - General Family Medicine 08/15/17 Shirt Presser Relationship Specialty Start Date End Date Maya Mattson MD [address] [place] [address] PCP - General Family Medicine 08/15/17 Shirt Presser Relationship Specialty Start Date End Date Maya Mattson MD [address] [place] [address] PCP - General Family Medicine 08/15/17 Shirt Presser Relationship Specialty Start Date End Date Maya Mattson MD [address] [place] [address] PCP - General Family Medicine 08/15/17 Shirt Presser Relationship Specialty Start Date End Date Maya Mattson MD [address] [place] [address] PCP - General Family Medicine 08/15/17 Shirt Presser Relationship Specialty Start Date End Date Maya Mattson MD [address] [place] [address] PCP - General Family Medicine 08/15/17 Shirt Presser Relationship Specialty Start Date End Date Maya Mattson MD [address] [place] [address] PCP - General Family Medicine 08/15/17 Shirt Presser Relationship Specialty Start Date End Date Maya Mattson MD [address] [place] [address] PCP - General Family Medicine 08/15/17 Shirt Presser Relationship Specialty Start Date End Date Maya Mattson MD [address] [place] [address] PCP - General Family Medicine 08/15/17 Shirt Presser Relationship Specialty Start Date End Date Maya Mattson MD [address] [place] [address] PCP - General Family Medicine 08/15/17 Shirt Presser Relationship Specialty Start Date End Date Maya Mattson MD [address] [place] [address] PCP - General Family Medicine 08/15/17 Shirt Presser Relationship Specialty Start Date End Date Maya Mattson MD [address] [place] [address] PCP - General Family Medicine 08/15/17 Shirt Presser Relationship Specialty Start Date End Date Maya Mattson MD [address] [place] [address] PCP - General Family Medicine 08/15/17 Shirt Presser Relationship Specialty Start Date End Date Maya Mattson MD [address] [place] [address] PCP - General Family Medicine 08/15/17 Shirt Presser Relationship Specialty Start Date End Date Maya Mtatson MD [address] [place] [address] PCP - General Family Medicine 08/15/17 Shirt Presser Relationship Specialty Start Date End Date Maya Mattson MD [address] [place] [address] PCP - General Family Medicine 08/15/17 Shirt Presser Relationship Specialty Start Date End Date Maya Mattson MD [address] [place] [address] PCP - General Family Medicine 08/15/17 Shirt Presser Relationship Specialty Start Date End Date Maya Mattson MD [address] [place] [address] PCP - General Family Medicine 08/15/17 Shirt Presser Relationship Specialty Start Date End Date Maya Mattson MD [address] [place] [address] PCP - General Family Medicine 08/15/17 Shirt Presser Relationship Specialty Start Date End Date Maya Mattson MD [address] [place] [address] PCP - General Family Medicine 08/15/17 Shirt Presser Relationship Specialty Start Date End Date Maya Mattson MD [address] [place] [address] PCP - General Family Medicine 08/15/17 FOR [...] BE BASED ON THE PRIMARY CLINICAL RECORDS. [facility] [employer] [facility]. provides no warranty or guarantee of the accuracy or completeness of information in this document.
[2024-01-28 07:59] VITALS: BP 138/87; PULSE 52; TEMP 36.5; O2SAT 96
[2024-01-28 08:21] LABS: Glucometer 104 mg/dL (74-106)
[2024-01-28 08:23] VITALS: PULSE 55; O2SAT 99
[2024-01-28] MEDS: TRIAMCINOLONE ACETONIDE 40 MG/ML VIAL INJ (08:25)
[2024-01-28] MEDS: BUPIVACAINE HCL 0.25% PF 25 MG/10 ML VIAL 5 ML INJ (08:25)
[2024-01-28] MEDS: IOHEXOL 240 MG/ML - 10 ML VIAL INJ (08:26)
[2024-01-28] MEDS: LIDOCAINE HCL 2% 400 MG/20 ML MDV 15 ML INJ (08:26)
--- NOTE | 2024-01-28 08:26 | P.ON_ITS ---
Date of procedure: 01/28/24 Pre-op diagnosis: Left sacroiliitis Post-op diagnosis: same as pre-op Procedure: Procedure: Left sacroiliac joint injection Medications: Bupivacaine 0.25% 3cc, kenalog 40mg After informed consent was obtained, the patient was brought to the medical pro cedure unit and placed in the prone position, when a timeout was completed verifying correct patient, procedure, site, positioning, implant, and/or special equipment.? The skin overlying the area was prepped and draped in standard sterile fashion using alcohol.? A 25-gauge needle was inserted towards the left sacroiliac joint under direct fluoroscopic imaging.? Needle tip was advanced until the joint was encountered.? We instilled a total of 2 mL of solution.? Postoperatively needles were removed.? The patient tolerated the procedure well without complication.? The patient reported reduction in pain symptoms postoperatively. Anesthesia: Local Surgeon: Elayne Arreola Pathology: none sent Condition: stable Disposition: no change
[2024-01-28 08:27] VITALS: BP 121/75; PULSE 62; O2SAT 94
[2024-01-28 08:28] VITALS: BP 151/65
== END 2024-01-28 08:32 | disposition home or self-care (01) ==
LOC: SURGOUT 07:39
PROVIDERS: PCP Family Medicine; Visit Provider Anesthesiology
DX: M46.1 Sacroiliitis, not elsewhere classified (principal); Z79.84 Long term (current) use of oral hypoglycemic drugs
CPT/HCPCS: 27096; 36415; 82948; J0665; J3301; Q9966

== ENCOUNTER 2024-02-06 09:07 | Outpatient (OUT) | payer OTHER, SELFPAY ==
--- OUTSIDE RECORDS SUMMARY | 2024-02-06 09:11 | XMS_ITS | CCD ---
Author Organization [facility] Inform ion Partnership [facility] Care Team Providers Care Dock Clerk Name Role Phone Cortez Varma Unavailable Ford Humphreys Admitting Unavailable Ford Hupmhreys Attending Unavailable Diego CASTRO Attending Unavailable Dieter [...] Referring Unavailable MAYA MATTSON Primary Care Unavailable [facility] R Referring Unavailabl e MAYA MATTSON Primary Care Unavailable [facility] R Referring Unavailabl e MAYA MATTSON Primary Care Unavailable [facility] R Referring Unavailabl e MAYA MATTSON Primary Care Unavailable EDDIE DOUGHERTY Attending Unavailable MAYA MATTSON Referring Unavailable MAYA MATTSON Primary Care Unavailable MAYA MATTSON Referring Unavailable MAYA MATTSON Primary Care Unavailable [facility] R Referring Unavailabl e MAYA MATTSON Primary Care Unavailable [facility] R Referring Unavailabl e MAYA MATTSON Primary Care Unavailable [facility] R Referring Unavailabl e MAYA MATTSON Primary Care Unavailable [facility] R Referring Unavailabl e MAYA MATTSON Primary Care Unavailable [facility] R Referring Unavailabl e MAYA MATTSON Primary Care Unavailable [facility] R Referring Unavailabl e MAYA MATTSON Primary Care Unavailable [facility] R Referring Unavailabl e MAYA MATTSON Primary Care Unavailable [facility] R Referring Unavailabl e MAYA MATTSON Primary Care Unavailable [facility] R Referring Unavailabl MAYA Ramirez Primary Care Unavailable [facility] R Referring Unavailabl e MAYA MATTSON Primary Care Unavailable [facility] R Referring Unavailabl e MAYA MATTSON Primary Care Unavailable [facility] R Referring Unavailabl MAYA Ramirez Primary Care Unavailable [facility] R Referring Unavailabl e MAYA MATTSON G Primary Care Unavailable [facility] R Referring Unavailabl e MAYA MATTSON Primary Care Unavailable [facility] R Referring Unavailabl e MAYA MATTSON Primary Care Unavailable [facility] R Referring Unavailabl e MAYA MATTSON G Primary Care Unavailable [facility] R Referring Unavailabl e MAYA MATTSON Primary Care Unavailable [facility] R Referring Unavailabl e GREG MATTSONFER G Primary Care Unavailable [facility] R Referring Unavailabl e MAYA MATTSON G Primary Care Unavailable [facility] R Referring Unavailabl e ÁNGELA MATTSONNIFER G Primary Care Unavailable [facility] R Referring Unavailabl e GREG MATTSONFER G Primary Care Unavailable [facility] R Referring Unavailabl e MAYA MATTSON G Primary Care Unavailable [facility] R Referring Unavailabl e MAYA MATTSON G Primary Care Unavailable [facility] R Referring Unavailabl e MAYA MATTSON G Primary Care Unavailable [facility] R Referring Unavailabl e MAYA MATTSON G Primary Care Unavailable [facility] R Referring Unavailabl e MAYA MATTSON G Primary Care Unavailable [facility] R Referring Unavailabl e MAYA MATTSON G Primary Care Unavailable [facility] R Referring Unavailabl e MAYA MATTSON G Primary Care Unavailable [facility] R Referring Unavailabl e MAYA MATTSON G Primary Care Unavailable [facility] R Referring Unavailabl e MAYA MATTSON G Primary Care Unavailable [facility] R Referring Unavailabl e MAYA MATTSON G Primary Care Unavailable [facility] R Referring Unavailabl e MAYA MATTSON G Primary Care Unavailable [facility] R Referring Unavailabl e MAYA MATTSON G Primary Care Unavailable [facility] R Referring Unavailabl e MAYA MATTSON G Primary Care Unavailable [facility] R Referring Unavailabl e MAYA MATTSON G Primary Care Unavailable [facility] R Referring Unavailabl e MAYA MATTSON G Primary Care Unavailable MAYUR BUTLER Attending Unavailable MAYA MATTSON Referring Unavailable MAYA MATTSON Primary Care Unavailable Maya Mattson MD Primary Care Unavaila ble Maxwell ABRAHAM, lEayne Kendall Attending Unavailable Maxwell ABRAHAM, Elayne Kendall [...] Clavulanate Drug Allergy 9 Other (See Comments) [employer] Other (1 source) Amoxicillin / Clavulanate; Translations: [Augmentin] Drug Allergy [facility] Repository (2 sources) AMOXICILLIN-POT CLAVULANATE; Translations: [AMOXICILLIN-PO T CLAVULANATE] Propensity to adverse reactions to drug (disorder) 9 [facility] Repository (20 sources) Amoxicillin; Translations: [AMOXICILLIN] Drug Allergy 3 [facility] Medications Current Medications Medication Drug Class(es) [...] Drug Class(es) Dates Sig (Normalized) Sig (Original) [id number] 200 actuat albuterol 0.09 mg/actuat metered dose [...] 1.5 mg/ml oral solution (2 sources) Uncompetitive M-vlnrje-J-aspartate Receptor Antagonist, Sigma-1 Agonist Start: 06-02-2019 [place] DM 7.5-7.5 MG/5ML 10 ml Orally every [...] Results Test Name Value Interpretation Reference Range [facility] Glucose Glucometer (BldC) [M ass/Vol]on 09-17-2023 Glucose [Mass/Vol] 103 mg/dL High 65-99 [facility] Glucose [Mass/Vol] 103 mg/dL High 65 - 99 mg/dL [facility] Interpretation and review of laboratory results Abnormal [facility] Glucose Glucometer (BldC) [M ass/Vol]on 09-05-2023 Glucose [Mass/Vol] 120 mg/dL High 65-99 [facility] Glucose [Mass/Vol] 120 mg/dL High 65 - 99 mg/dL [facility] Interpretation and review of laboratory results Abnormal [facility] Glucose Glucometer (BldC) [M ass/Vol]on 07-30-2023 Glucose [Mass/Vol] 105 mg/dL High 65-99 [facility] Glucose [Mass/Vol] 121 mg/dL High 65-99 [facility] Glucose Glucometer (BldC) [M ass/Vol]on 07-26-2023 Glucose [Mass/Vol] 132 mg/dL High 65-99 [facility] Glucose [Mass/Vol] 132 mg/dL High 65 - 99 mg/dL [facility] Interpretation and review of laboratory results Abnormal [facility] Glucose Glucometer (BldC) [M ass/Vol]on 07-25-2023 Glucose [Mass/Vol] 102 mg/dL High 65-99 [facility] Glucose [Mass/Vol] 144 mg/dL High 65-99 [facility] Glucose [Mass/Vol] 144 mg/dL High 65 - 99 mg/dL [facility] Glucose [Mass/Vol] 102 mg/dL High 65 - 99 mg/dL [facility] Interpretation and review of laboratory results Abnormal [facility] Glucose Glucometer (BldC) [M ass/Vol]on 07-23-2023 Glucose [Mass/Vol] 136 mg/dL High 65-99 [facility] Glucose Glucometer (BldC) [M ass/Vol]on 07-18-2023 Glucose [Mass/Vol] 115 mg/dL High 65-99 [facility] Glucose [Mass/Vol] 152 mg/dL High 65-99 [facility] Glucose [Mass/Vol] 115 mg/dL High 65 - 99 mg/dL [facility] Interpretation and review of laboratory results Abnormal [facility] Glucose [Mass/Vol] 152 mg/dL High 65 - 99 mg/dL [facility] Interpretation and review of laboratory results Abnormal [facility] Glucose Glucometer (BldC) [M ass/Vol]on 07-16-2023 Glucose [Mass/Vol] 118 mg/dL High 65-99 [facility] Glucose [Mass/Vol] 142 mg/dL High 65-99 [facility] Glucose Glucometer (BldC) [M ass/Vol]on 07-12-2023 Glucose [Mass/Vol] 107 mg/dL High 65-99 [facility] Glucose [Mass/Vol] 130 mg/dL High 65-99 [facility] Glucose [Mass/Vol] 130 mg/dL High 65 - 99 mg/dL [facility] Glucose [Mass/Vol] 107 mg/dL High 65 - 99 mg/dL [facility] Interpretation and review of laboratory results Abnormal [facility] Glucose Glucometer (BldC) [M ass/Vol]on 07-11-2023 Glucose [Mass/Vol] 93 mg/dL Normal 65-99 [facility] Glucose [Mass/Vol] 180 mg/dL High 65-99 [facility] Glucose [Mass/Vol] 93 mg/dL 65 - 99 mg/dL [facility] Glucose [Mass/Vol] 180 mg/dL High 65 - 99 mg/dL [facility] Interpretation and review of laboratory results Abnormal [facility] Glucose Glucometer (BldC) [M ass/Vol]on 07-09-2023 Glucose [Mass/Vol] 115 mg/dL High 65-99 [facility] Glucose [Mass/Vol] 129 mg/dL High 65-99 [facility] Glucose [Mass/Vol] 115 mg/dL High 65 - 99 mg/dL [facility] Interpretation and review of laboratory results Abnormal [facility] Glucose [Mass/Vol] 129 mg/dL High 65 - 99 mg/dL [facility] Interpretation and review of laboratory results Abnormal [facility] BNPon 06-27-2023 [facility] XR CHEST 2 VIEWSon 3 XR CHEST [...] the neruo consult for right now. Normal [facility] Progress Note-Nurse Message left on patient's VM that he was approved for Neurology Consult and to call back if he wanted to go ahead with that visit. Normal [facility] Workers' Comp Officeon 04-18 Workers' Comp Office [id number]# 1.00CD:127 [facility] Coding Summary.on 04-17-2022 Coding Summary. CD:[id number] G h0bWw+PGhlYWQ+OR7JZZM zY57jxZJjlZ4AZ3iCGK8Y QAIUDRHGGV4KYS4ryKH8D KqnN6SfleTz HouzhSEmOE50WEv0PNN5o PbzHDvtpU6rnVTzO3u3Cc IfGR43tR97NMpvVTBkBbS 3LjZpbjsgbWFy V4klYiFkrSPdYwz+PHRhY mxlIHdpZHRoPScxMDAlJy JayTpmZN3gMt5eEZRaSNZ vbGxhcHNlOiBj u4csELAtYHmaQQ1bdGxsG 2WsbWG4UTHgg0e9Qv94nP I+HSOwOUQ9pMlfUAfva35 1XaKyr7hdXYB9 dMOaPGkzXUI0Z05oy0G5Y SUxVPJaGZS5qLD7aJ8fyB ragyalA7QpqXYuTrC3UVO 4aOTjhE8veXvc vhkoeE1oSbp+Q14GEG3GW KDAAP3WRgw4Y7NcQzgesQ I+HN81ESWyUM45sBWepYW gu9lcoJc7WtKe BYGtALC9uHotMTsan5GiY ABdB70kzAIbp9R8YZRwlE fjiWNfImVwxNS8zM4rYUh nojumf4xwjczg Yrslm7updm23dR27J98rP XkaDXWxXQT4ZWAbKYAdpM glej1fbX8uXz9+UKlds9x jz8hjcFg3QwAd GWJntbPbmMniKEQ4n4AbQ t85R6HgoEwaq4ImZmw0sm 60tFSwn4N0aEB4REdkGXH wzK4iCIsyDmE5 SQUhVlKpuS16gJNhFZtkN b1tuBdumAhpCA3cMDBmxv gzITSaqT1aGZAzdRSicAw hSW8rTUVechwn w919GgCcUYU0ZRLsfVDyU 5AzxP1eTkGiQFKrTIFwF9 EhmEIdAVopE613NHszSkA 7PISnjgOgC4Dj ZLMwmHczQlG6c8A7Zg7Tp 7YljlbsMBJ0NGckADLkUb I8WpSkReA4L5XsFsn2RKH vcFjnYI6rR2Pw BHIfzxbkshbtrZB5JPBpH KWrkO06kGHoXAkuIp6ky9 F6j558QETrAINjxW82Op9 udDogMTBwdCBU rC4yzkcpn7qzczwtRoKtH GUlKNm6JNo8KTZrqFhsHg QvEZB9LuH5NCM4tPKijY6 usAtpxtdhfA5m Oyc+B98oyP3xBBK3TWB6r mheOCLrvjYqHT02ND89I9 RyPjwvdGFibGU+PGRpdiB nvWcvOV9gTtUv h0tcn2CwGOpoZ9NeRDQwR JmnAkw7RUGsHHB0bQH2yM 4mNWPoSQpuk6W5wBW6S2R vsqKblq5su5jq ROWeDOdwV52amIOaq8Q3V ABwuFQ5ZMDnhCwuAgVixD 93Oyc+TZDixOezv3QkGbc wi6jea4pcmSm2 XxPfTPGasmHumZxfZDB2h 0EgQd00U91iMQegPCNuQF DyODFvRQWrzUztmd1miK9 wIi8+PGNvbCB3 kAX3mF3uXFRoVkC2JHtnO 271OxXrzHUfKbmoe4hyf8 teyUt7FmCsVQWdfpOmqXb nFJO3d8NmVq17 C73uYFffQJViBHKsTGJuO LIweKoxig5loW9qZk0+PC 9xv7ltab89cA81oKH+PHR dGZY6nPxzXAdv VFNqoO1hTCnzLgG8NYJhP eJjvQ57pRUwZLglQl6jmA pbiGuxWJ0sNLLkffcqx32 1FhSxv6eoTQTv zFYuKItsFZG8G02hw0X7L EPyUMKxWID2fFV8uE4qzH lnbjogbGVmdDsgdmVydGl iZVskEMrlE265 IHRvcDsnPlBhdGllbnQgT yAoOAv1Y5MrMyo8BPJxwF fhHL6xkODiTPlaLh9qtVs qgMraBU4gKULg ockyo277AmKzv9aoKGFas IBlMXmtHLU2K02fp1B6BK BsUFViKVN2sQR7eJ1pqSb nbjogbGVmdDsg vkLavZrgZDwmFNrpW007B HRvcDsnPkJpcnRoIERhdG N1PV44KO81wSLkc3P7uTL 0X4HtPNJcwpan zyzevHS3YVDqFFNbvL44M l6orIvoZd3mIGMmVMJ2PR CbeQMbI0FvpV9wUfFjWSA pUDRzY7AmqCIx VMpaB307ORhjYdP8FZMei rZfI3BmUNLsdSnsHfJ4c8 M9Wy6IM0L5JR57KT08vKU my8W2kIO5C8Ko YEZldqsyhmgezJK4SOXtR NIqvD20Sl1cbAezVg0dSI AyYFK2LBYosDWsG8KzkG4 yOiAjMDAwMDAw O5ZmmOUuCEsyA984DEltY aY3ZAPoeqOeZ0XtJYEltB osEyE3s0D9Do7QIKf3ES7 9FX25zQUcv4P6 iAL9Z7PrAVPladbllxlov JQ5BSTmZLIcxI22Vz6chQ etGq6bEXLmJCU2SVAanAA wE8BocT4eHuVw CADvZSNqE0WriGDzMFlhA 170NIfpBiD3GNTihuZjS6 BqFGIuzLmpGhG0w7D1Bc6 TRGThHU57BNE2 lOB4GP37KN21Z1GzZwizh GFibGU+PHRhYmxlIHdpZH RoPScxMDAlJyBzdHlsZT0 qSb4jTHIgACHs gUrflJSlVkNkt1ycBIFoW SstRW3jeJipF6CimEL8AJ Esu5w4Ay09D84uF5YhvGS +EVMlsPJ8zFP9 sN7jYzMuStE3CEgcF456C qGjhODeDmrcv1gxy7yldH t2YaH3NBSyknRxkNlbDMB 0l8ObCc01J60q IHdpZHRoPSIxNSUiIHZhb Hkdga4wrW1oBi5+PGNvbC X0rWY9iZ0sRaJuOuI1XZt zH038FkMdlTOn Blgcy8vpt6gkoOd1AcYeJ KNazhQpaFtuXFV6n3SjTo 79N6QmaHgnx2NeYge6io9 0dNOtb8Q8bJS5 A1QeIIRbwukfyTQeoQpoA V9uMWYqpfyjSUXzdM0fRE NxU4p2FsTmDcU2NJcqJ3A cnhK4JCPdiVWt QCrnIYD3T23bm6B1FPIsY BStULY2mDF5lC7smKdwfr ogbGVmdDsgdmVydGljYWw sQRzwI381TIIl pWbdIYFauZ7bULXhzPYao ZigAN8pOSPorpxtEtPVHC SLMBKUWO5BSRXMFIE6O0K lFew7SRDqcMgx KX7amWJtGYyiTp1uzMuhc IkpNT6dBWLmbjjwXUGadK 4xDVZimDUlgBavZW3dNWI xrqwxo391FeEa VGV3GOBmzATnQ7CvaC3iB wSyQSWfEYHqV9SkbAYdJT faG914PJysPeU9FKXdodU xT7PkVSPiuMzc AtM4j4I9Dy5dCB2xBn4aH JN7JV57CN86eGZxw7D0zL K4B6DmGYQztuksxxiqsYR 5MYChYMSnrC95 vQUsZZtkMv2nm9L2b322R HVzGIGepB53Mf1anRyeWN QplADQrL0rdhfmd3wyofi gIzAwMDAwMDt0 AGg5UWKjbHtiFiPmBPM1B uU4GRO0uEZcdS1peSequh pvdA9jWoi+NTQgWWVhcnM 0P8HnPjg5WYGy xLecXF1cbNGoRQvpVu9ox UdxlWdjXX2nCVShpmtgVO MqwI6lRCNbuOCzqXplHY7 rKIFuqtmph926 DoBxMQC5LINabYZmB6Xab B9dAqUkGTKzYQQiC4KjqP XyOTvuE132RKogIxJ7ADL etkVnR8HfUOTo vWgoNkN4q3K0We8UKWshT F26TJ16qBArr5G4kKT3W3 IhUWRxznvvzzwvvDV1ZOP pOECurV16lJFw FQmlVx6zz0R3l371UAKrQ AIyeF95Xu3ozNpwFZSdzB YYkC2tvweni7qcouqsKjC vKRKdKQi6XPa9 HUDpbTzaOgQdYWQ3NnZ1T UF6iWHegT2zmDrpxbtyrW 9wOyc+ZX1xrrohalB3LE4 1WX57I1ZxKrtt dGFibGU+PHRhYmxlIHdpZ HRoPScxMDAlJyBzdHlsZT 4oTe3pEGFwGFOghTmmgXL oLgZys0zhGVUo UJbeEM7cxLmqK9SpbQO9D HNbp8p5Yl13W83hB8BvbA A+NHOrjUR9tKB0gT9tRnG dXqX5DFrkG557 DrVwoAZdEpcgz6jgt6puk Ea9ZeQgEUHdelPelJnaHQ R3e9YrLv49A23aODfnHTF oPSIyMCUiIHZh wWwtgm1hyH4qGt3+PGNvb GV9cWV9aF8cQkEeYeL0TT zqG595TxQgvITpHesbR26 uI4OcxBJ+PHRy Ugj2DIZsbAktIW1mpBDvZ ZdiJt0xPFL3UfQyCaNhMW yfE9PzLCForxtbxlijvFO 1UIVbUVLohL45 Rb0ivYyrEl4tUZIgIHH3K RQqsCLiS6GvnG6xCaHrVU BmQIPiF2YmdSGkLXwjE17 0KTnnUuD4EFQz yoIyL6KtJBIusXcxUrS1u 1S6Xx3ImXapaPZsTV3gQw LgPTy5D6CcKos0OCHiiUu oKG0mzGUoQAoi Mm2iuShoqMznZN7tYIIeb ufyf456VcQnu9atZVOokO HgNKgzEBB3L45tp5A8EIK tTMStDPK0gRM8 uV4lhVbjdpgfnUSlrTmpx bNfeHrrTNneOPcoT925EM InaFvaZvKUCvd9E8KmOxj 9APAzfEmvTV5k yGTvMSanIb4xuVhjgBuvV Q1fNAPenufbf517KmNtv4 laRPXpvWJaUZljHHK1F09 am1H2MZMlZECc SCI1oUR6vM0fnUlmehfma GVmdDsgdmVydGljYWwtYW glZ720JICpvJllGv0SQic 3N5TeHpa1XCAa lCfaOB3ppTByZRroWi5jp OavpBhhFZ5eMABbimvfm9 51ZrOnx2lkMTYemSFjXEu xKOX8F23ka3I8 UNSvKNIfWCW2xZM9fS7iq GlnbjogbGVmdDsgdmVydG drHGlfXRohV530ANKnlBw nPlBheWVyOjwv dGQ+WT63vc44E3BqHervS yv9JWVrEQI3pWV1fK8lHG EaZPykm5Z0qPJ0W1FtrmL sax2lk6ovXHVb ZTog (more content not included)... Normal [facility] Workers' Comp Officeon 04-17 Workers' Comp Office [id number]#1 .00CD:127 Normal [facility] Workers' Comp Office [id number]#1 .00CD:127 Normal [facility] Workers' Comp Office [id number]#1 .00CD:127 Normal [facility] Consenton 04-13-2022 Consent [id number]#1 .00CD:127 Normal [facility] Progress Note-Physicianon Progress Note-Physician Patient: DAMIEN FRANK Age: 56 years Sex: Male : 1965 Associated Diagnoses: None Author: Ford Humphreys DO Chief Complaint 04/13/2022 10:24 EDT pt bent over to open a door and hit his head on the door, pt states he felt dizziness, pain and nausea after incident , treated at [facility] and CT scan was don, [...] Impression and Plan Diagnosis Abrasion of scalp (QGY25-CF S00.01XA, Working, Medical). Acute head injury (RPV60-NT S09.90XA, Working, Medical). Concussion (FWC42-CZ S06.0XAA, Working, Medical). two days post-injury continues [...] with a possible concussion. f/u TBD Normal [facility] Comment on above: Result Comment: Elec tronically Signed By: Ford Humphreys DO\.br\Date and Time Signed: 04/13/22 16:58 EDT Discharge Instructionson Discharge Instructions [id number]# 1.00CD:127 Normal [facility] ED Traumaon 04-12-2022 ED Trauma [id number]# 1.00CD:127 Normal [facility] Workers Comp Formson 022 Workers Comp Forms [id number]# 1.00CD:127 [address] [facility] [address] Head or Brain w/o Contras ton [...] MD Transcribed by: MEHNAZ Technologist: NELLIE Normal [facility] CT Spine Cervical w/o Contra ston 04-11-2022 [...] MD Transcribed by: MEHNAZ Technologist: NELLIE Normal [facility] Capillary Glucose POCon 03-25 Glucose [Mass/Vol] 104 mg/dL High 55-99 [facility] Comment on above: Result Comment: Sisi ernestine Meter Performed By: #### 2 [id number] ####[facility] [address] [place] [address] Consent for Treatmenton 03-25 Consent for Treatment [id number]#1 .00CD:127 Normal [facility] ED Clinical Summaryon 2021 ED Clinical Summary [place] [id number] ED Clinical Summary Person Information Name: JOSSEИВАНYuli [place] Age: 56 Years : 1965 Sex: Male Language: Armenian PCP: MAYA MATTSON MD Marital Status: Phone: [phone] Visit Id: Visit Reason: Dizziness; Trauma - [...] 04/11/2022 19:44:56 04/11/2022 19:44:56 04/11/2022 19:44:56 ADDRESS: [address] [place] [id number] [facility] DOC NOTES: Addendum by Dieter Duarte DO on April 11, 2022 19:07:31 EDT MEDICAL INFORMATION: Prescriptions Given: Medications to Continue with No Changes Other Medications metoprolol (metoprolol 25 mg ER Tab) 1 Tablets By Mouth 2 times a day. PATIENT EDUCATION INFORMATION: Instructions: Head Injury, Adult; Abrasion, Moav-wh-Sdnf Follow up: With: Address: When: [facility]: [facility] [phone] In 3 days 04/14/2022 With: Address: When: MAYA MATTSON [address] [place], [place] [id number] [place] (7) In 3 days DIAGNOSIS: Head injury; Scalp abrasion Normal [facility] ED Note-Physicianon 04-11-20 ED Note-Physician Basic Information [...] ER symptoms should change or worsen. Normal [facility] Comment on above: Result Comment: Elec tronically [...] at home: Medicines ? Take or apply ovwy-yth-nqxlihv and prescription medicines only as told by [...] cannot use soap and water, use hand diabetes trainer. ? Change your bandage as told by [...] 11/27/2008 Document Revised: 05/24/2018 Document Reviewed: 01/31/2018 [employer] Patient Education ? 2019 [employer] Neurology Head Injury, Adult There are [...] brain t (more content not included)... Normal [facility] ED Patient Summaryon 022 ED Patient Summary [address] [address] Patient Discharge Instructions Person Information Name: DAMIEN FRANK Age: 56 Years Arrival Date: 04/11/2022 17:11:51 Discharge Diagnosis: Head injury; Scalp abrasion Primary Care Physician: MAYA MATTSON MD Provider Information Primary Provider: Dieter Duarte DO [employer] Supervisor:None The exam and treatment you received in the Emergency Department were for an urgent problem and are not intended as complete care. It is important that you follow up with a doctor, nurse practitioner, or physician?s mri assistant for ongoing care. If your symptoms become worse or you do not improve as expected and you are unable to reach your usual health care provider, you should return to the Emergency Department. We are available 24 hours a day. DAMIEN FRANK has been given the following list of patient education materials, prescriptions and follow-up instructions: Follow-up Instructions: With: Address: When: [facility]: [facility] [phone] In 3 days 04/14/2022 With: Address: When: MAYA MATTSON [address] [place] [phone] [facility] (2) In 3 days In the event that this physician does not participate in your insurance network, please consult with your insurance company to find a nearby participating provider. Patient Education Materials: Head Injury, Adult; Abrasion, Gsbn-yu-Ucld A MESSAGE TO ALL PATIENTS REGARDING OPIOIDS PRESCRIPTION OPIOIDS: WHAT YOU NEED TO KNOW Prescription opioids can be used to help relieve ihvpprep-qh-bzqwfi pain and are often prescribed following a [...] be struggling with addiction, tell your health career development coordinator and a (more content not included)... Normal [facility] Vaccinationson 04-11-2022 Vaccinations [id number]# 1.00CD:127 Normal [facility] US Venous, Unilat, Lower Ext Lefton 02-07-2022 [...] by Shaun Dunlap on 08/01/2021 1038 Normal [facility] MR knee LT wo conon 04-19-20 MR knee LT wo con [facility] [place] [address] [place], [place] [address] MRI Report Signed Patient: Damien Frank MR#: [id number] : [id number] Acct:[id number] Age/Sex: 55 / M ADM Date: 04/19/21 Loc: [facility] Room: Type: [facility] Attending Dr: Cortez Hall PA-C Ordering Provider: [...] Guillermo Recio M.D.04/19/2021 5:39 PM Dictation Location: [place] [address] Transcribed By: [facility] 04/19/211738 Dictated By: Guillermo Recio II, MD 04/19/211729 Signed By: 04/19/211738 [facility] Vital Signs Date Time Vital Sign Value Performing Clinician Facility 09-20-2023 08:50-0400 Body height 180.3 cm Kathy Lopez MD Work Phone: [facility] 09-20-2023 08:50-0400 Body mass index (BMI) [Ratio] 47.7 kg/m2 Kathy Lopez MD Work Phone: [facility] 09-20-2023 08:50-0400 Body weight 155.13 kg Kathy Lopez MD Work Phone: [facility] [employer] [facility] 09-20-2023 08:50-0400 Diastolic blood pressure 72 mm[Hg] Kathy Lopez MD Work Phone: [facility] 09-20-2023 08:50-0400 Heart rate 63 /min Kathy Lopez MD Work Phone: [facility] 09-20-2023 08:50-0400 SaO2% (BldA) [Mass fraction] 94 % Kathy Lopez MD Work Phone: [facility] [employer] [facility] 09-20-2023 08:50-0400 Systolic blood pressure 136 mm[Hg] Kathy Lopez MD Work Phone: [facility] 06-22-2023 11:21-0500 Body height 180.3 cm Eddie Dougherty MD Work Phone: [facility] 06-22-2023 11:21-0500 Body mass index (BMI) [Ratio] 50.01 kg/m2 Eddie Dougherty MD Work Phone: [facility] 06-22-2023 11:21-0500 Body weight 162.66 kg Eddie Dougherty MD Work Phone: [facility] 06-22-2023 11:21-0500 Diastolic blood pressure 80 mm[Hg] Eddie Dougherty MD Work Phone: [facility] 06-22-2023 11:21-0500 Heart rate 55 /min Eddie Dougherty MD Work Phone: [facility] 06-22-2023 11:21-0500 SaO2% (BldA) [Mass fraction] 99 % Eddie Dougherty MD Work Phone: [facility] 06-22-2023 11:21-0500 Systolic blood pressure 126 mm[Hg] Eddie Dougherty MD Work Phone: [facility] 08-22-2021 14:45-0500 Body height 180.34 cm Cortez Varma Other [employer] Other 08-22-2021 14:45-0500 Body mass index (BMI) [Ratio] 50.9 kg/m2 Cortez Varma Other [employer] Other 08-22-2021 14:45-0500 Body temperature 98.9 [degF] Cortez Kojo Other [employer] Other 08-22-2021 14:45-0500 Body weight 165.56 kg Cortez Varma Other [employer] Other 08-22-2021 14:45-0500 Diastolic blood pressure 62 mm[Hg] Cortez Varma Other [employer] Other 08-22-2021 14:45-0500 SaO2% (BldA) [Mass fraction] 96 % Cortez Varma Other [employer] Other 08-22-2021 14:45-0500 Systolic blood pressure 140 mm[Hg] Cortez Varma Other [employer] Other Encounters Encounter Date Encounter Type Care Provider Facility Start: 01-24-2024 End: 01-24-2024 ambulatory MAYA MATTSON Not Available Start: 01-14-2024 End: 01-14-2024 ambulatory Maya Mattson MD Facility:[facility] Start: 11-14-2023 End: 11-14-2023 ambulatory [facility] [facility] Start: 10-22-2023 End: 10-24-2023 ambulatory ANDRE OSBORNE [facility] Start: 10-18-2023 End: 10-24-2023 ambulatory ANDRE R [facility] Start: 10-17-2023 End: 10-24-2023 ambulatory ANDRE R [facility] Start: 10-15-2023 End: 10-24-2023 [facility] Start: 10-11-2023 End: 10-24-2023 ambulatory [place] [facility] Start: 10-10-2023 End: 10-24-2023 ambulatory ANDRE R [facility] Start: 10-08-2023 End: 10-24-2023 ambulatory ANDRE R [facility] Start: 10-04-2023 End: 10-24-2023 [facility] Start: 10-03-2023 End: 10-24-2023 [facility] Start: 10-01-2023 End: 10-24-2023 [facility] Start: 09-27-2023 End: 10-24-2023 [facility] Start: 09-26-2023 End: 10-24-2023 [facility] Start: 09-24-2023 End: 10-24-2023 Clinical Support Andre Osborne MD Work Phone: [facility] Start: 09-20-2023 End: 09-24-2023 [facility] Start: 09-20-2023 End: 09-20-2023 Office outpatient visit 15 minutes Kathy Lopez MD Work Phone: [facility] Comment on above: ACS (acute coronary syndrome) ([facility]) (Primary Dx) Start: 09-19-2023 Telephone encounter Maya Hubbard CMA [facility] Start: 09-19-2023 End: 09-19-2023 ambulatory ANDRE R [facility] Start: 09-19-2023 End: 09-19-2023 Patient encounter procedure Andre Osborne MD Work Phone: [facility] Comment on above: Acute coronary syndr ome ([facility] Start: 09-17-2023 End: 09-17-2023 ambulatory [facility] Start: 09-17-2023 End: 09-17-2023 Patient encounter procedure Andre Osborne MD Work Phone: [facility] Comment on above: Acute coronary syndr ome ([facility] Start: 09-13-2023 End: 09-13-2023 [facility] Start: 09-13-2023 End: 09-13-2023 Patient encounter procedure Andre Osborne MD Work Phone: [facility] Comment on above: Acute coronary syndr ome ([facility]) Start: 09-12-2023 End: 09-12-2023 [facility] Start: 09-10-2023 End: 09-24-2023 [facility] Start: 09-06-2023 End: 09-06-2023 [facility] Start: 09-06-2023 End: 09-06-2023 Patient encounter procedure Andre Osborne MD Work Phone: [facility] Comment on above: Acute coronary syndr ome ([facility]) Start: 09-05-2023 End: 09-05-2023 ambulatory [place] [facility] Start: 09-05-2023 End: 09-05-2023 Patient encounter procedure Andre Osborne MD Work Phone: [facility] Comment on above: Acute coronary syndr ome ([facility]) Start: 09-03-2023 End: 09-24-2023 ambulatory [facility] Start: 08-30-2023 End: 08-30-2023 [facility] Start: 08-30-2023 End: 08-30-2023 Patient encounter procedure Andre Osborne MD Work Phone: [facility] Comment on above: Acute coronary syndr ome ([facility]) Start: 08-29-2023 End: 08-29-2023 ambulatory [facility] Start: 08-29-2023 End: 08-29-2023 Patient encounter procedure Andre Osborne MD Work Phone: [facility] Comment on above: Acute coronary syndr ome ([facility]) Start: 08-27-2023 End: 09-24-2023 [facility] Start: 08-23-2023 End: 08-23-2023 [facility] Start: 08-23-2023 End: 08-23-2023 Patient encounter procedure Andre Osborne MD Work Phone: [facility] Comment on above: Acute coronary syndr ome ([facility]) Start: 08-22-2023 End: 08-22-2023 [facility] Start: 08-22-2023 End: 08-22-2023 Patient encounter procedure Andre Osborne MD Work Phone: [facility] Comment on above: Acute coronary syndr ome ([facility]) Start: 08-20-2023 End: 08-20-2023 [facility] Start: 08-16-2023 End: 08-16-2023 [facility] Start: 08-15-2023 End: 08-15-2023 ambulatory [place] [facility] Start: 08-15-2023 End: 08-15-2023 Patient encounter procedure Andre Osborne MD Work Phone: [facility] Comment on above: Acute coronary syndr ome ([facility]) Start: 08-13-2023 End: 08-13-2023 ambulatory [facility] Start: 08-13-2023 End: 08-13-2023 Patient encounter procedure Andre Osborne MD Work Phone: [facility] Comment on above: Acute coronary syndr ome ([facility]) Start: 08-09-2023 End: 08-09-2023 [facility] Start: 08-09-2023 End: 08-09-2023 Patient encounter procedure Andre Osborne MD Work Phone: [facility] Comment on above: Acute coronary syndr ome ([facility]) Start: 08-08-2023 End: 08-08-2023 [facility] Start: 08-06-2023 End: 08-06-2023 [facility] Start: 08-06-2023 End: 08-06-2023 Patient encounter procedure Andre Osborne MD Work Phone: [facility] Comment on above: Acute coronary syndr ome ([facility]) Start: 08-02-2023 End: 08-02-2023 ambulatory [facility] Start: 08-02-2023 End: 08-02-2023 Patient encounter procedure Andre Osborne MD Work Phone: [facility] Comment on above: Acute coronary syndr ome ([facility]) Start: 08-01-2023 End: 08-01-20[facility] Start: 08-01-2023 End: 08-01-2023 Patient encounter procedure Andre Osborne MD Work Phone: [facility] Comment on above: Acute coronary syndr ome ([facility]) Start: 07-30-2023 End: 07-30-2023 [facility] Start: 07-26-2023 End: 07-26-2023 [facility] Start: 07-26-2023 End: 07-26-2023 Patient encounter procedure Andre Osborne MD Work Phone: [facility] Comment on above: Acute coronary syndr ome ([facility]) Start: 07-25-2023 End: 07-25-2023 [facility] Start: 07-25-2023 End: 07-25-2023 Patient encounter procedure Andre Osborne MD Work Phone: [facility] Comment on above: Acute coronary syndr ome ([facility]) Start: 07-23-2023 End: 07-23-2023 [facility] Start: 07-19-2023 End: 07-26-2023 [facility] Start: 07-18-2023 End: 07-18-2023 [facility] Start: 07-18-2023 End: 07-18-2023 Patient encounter procedure Andre Osborne MD Work Phone: [facility] Comment on above: Acute coronary syndr ome ([facility]) Start: 07-16-2023 End: 07-16-2023 [facility] Start: 07-12-2023 End: 07-12-2023 ambulatory [place] [facility] Start: 07-12-2023 End: 07-12-2023 Patient encounter procedure Andre Osborne MD Work Phone: [facility] Comment on above: Acute coronary syndr ome ([facility]) Start: 07-11-2023 End: 07-11-2023 [facility] Start: 07-11-2023 End: 07-11-2023 Patient encounter procedure Andre Osborne MD Work Phone: [facility] Comment on above: Acute coronary syndr ome ([facility]) Start: 07-09-2023 End: 07-09-2023 [facility] Start: 07-09-2023 End: 07-09-2023 Patient encounter procedure Andre Osborne MD Work Phone: [facility] Comment on above: Acute coronary syndr ome ([facility]) Start: 07-06-2023 End: 07-06-2023 [facility] Start: 06-28-2023 End: 06-28-2023 ambulatory MAYA SRINIVASAN Not Available Start: 06-27-2023 Orders Only Maria Elena Nguyen RMA [facility] Comment on above: SOB (shortness of br eath) Start: 06-22-2023 End: 06-22-2023 ambulatory EDDIE DOUGHERTY [facility] Start: 06-22-2023 End: 06-22-2023 Office outpatient visit 15 minutes Eddie Dougherty MD Work Phone: [facility] Comment on above: S/P right coronary a rtery (RCA) stent placement (Primary Dx); Essential hypertension; Pure hypercholesterolemia; History of DVT (deep vein thrombosis); Morbid obesity with BMI of 50.0-59.9, adult ([facility]); SOB (shortness of breath) Start: 06-21-2023 Telephone encounter Maria Elena huitron [facility] Start: 06-19-2023 End: 06-25-2023 ambulatory MAYA MATTSON [facility] Start: 06-15-2023 End: 06-15-2023 ambulatory MAYA MATTSON Not Available Start: 06-10-2023 ambulatory [facility] Start: 06-05-2023 End: 06-05-2023 ambulatory MAYA MATTSON Not Available Start: 05-21-2023 End: 05-21-2023 ambulatory Elayne Arreola MD [facility] Start: 04-23-2023 End: 04-23-2023 ambulatory Elayne Arreola MD Facility[facility] Start: 04-13-2022 ambulatory Ford Oreilly ty[facility] Start: 04-11-2022 End: 04-11-2022 Emergency department patient visit Dieter Duarte Facility:[facility] Start: 04-11-2022 End: 04-12-2022 ambulatory Diego CASTRO Facility[facility] Start: 09-01-2021 End: 09-01-2021 ambulatory Cortez Varma Other [employer] Other Start: 09-01-2021 Telephone encounter Cortez Vazquez [facility] Start: 08-22-2021 End: 08-22-2021 ambulatory Cortez Varma Other [employer] Other Start: 08-22-2021 Office outpatient ne w 45 minutes Cortez Varma [facility] OutPt Procedures Date Procedure Procedure Detail [...] Microalbumin [Mass/volume] in Urine by Test strip [facility] 1 Start: 07-18-2023 End: 07-18-2023 Gluc bld [...] Td Vaccines (8 - Td or Tdap) [facility] Start: 09-19-2024 Adult BMI Screening Adult BMI Screen ing [facility] Start: 09-19-2024 Tobacco Screening Tobacco Screening [facility] Start: 07-19-2024 Urine screening for protein Urine Microalbumin [facility] Start: 06-22-2024 Adult BMI Screening Adult BMI Screen ing [facility] Start: 06-22-2024 Tobacco Screening Tobacco Screening [facility] Start: 06-11-2024 Adult BMI Screening Adult BMI Screen ing [facility] Start: 03-28-2024 End: 03-28-2024 Patient encounter procedure 03/28/2024 8:30 AM EDT Office Visit [facility] [address] [place] [address] Eddie Dougherty MD [address] [place] [address] [facility] Start: 02-24-2024 Influenza vaccination Influenza Vacc ine [facility] Start: 10-10-2023 End: 10-10-2023 Clinical Support 10/10/2023 8:00 AM EDT Clinical Support [facility] [address] [place] [address] Andre Osborne MD [address] [place] [address] [facility] Start: 10-08-2023 End: 10-08-2023 Patient encounter procedure [facility] Start: 10-04-2023 Adult BMI Follow Up Plan Adult BMI F ollow Up Plan [facility] Start: 10-04-2023 Tobacco Screening Tobacco Screening [facility] Start: 10-04-2023 End: 10-04-2023 Patient encounter procedure [facility] Start: 10-03-2023 End: 10-03-2023 Patient encounter procedure [facility] Start: 10-01-2023 End: 10-01-2023 Patient encounter procedure [facility] Start: 09-27-2023 End: 09-27-2023 Patient encounter procedure 09/27/2023 9:00 AM EDT Office Visit [facility] [address] [place] [address] Andre Osborne MD [address] [place] [address] [facility] Start: 09-26-2023 End: 09-26-2023 Patient encounter procedure [facility] Start: 09-24-2023 End: 09-24-2023 Patient encounter procedure [facility] Start: 09-20-2023 End: 09-20-2023 Patient encounter procedure [facility] Start: 09-19-2023 End: 09-19-2023 Patient encounter procedure 09/19/2023 9:00 AM EDT Office Visit [facility] [address] [place] [address] Andre sOborne MD [address] [place] [address] [facility] Start: 09-17-2023 End: 09-17-2023 Patient encounter procedure 09/17/2023 9:00 AM EDT Office Visit [facility] [address] [place] [address] Andre Osborne MD [address] [place] [address] [facility] Start: 09-13-2023 End: 09-13-2023 Patient encounter procedure 09/13/2023 9:00 AM EDT Office Visit [facility] [address] [place] [address] Andre Osborne MD [address] [place] [address] [facility] Start: 09-12-2023 End: 09-12-2023 Patient encounter procedure 09/12/2023 9:00 AM EDT Office Visit [facility] [address] [place] [address] Andre Osborne MD [address] [place] [address] [facility] Start: 09-10-2023 End: 09-10-2023 Patient encounter procedure 09/10/2023 9:00 AM EDT Office Visit [facility] [address] [place] [address] Andre Osborne MD [address] [place] [address] [facility] Start: 09-06-2023 End: 09-06-2023 Patient encounter procedure 09/06/2023 9:00 AM EDT Office Visit [facility] [address] [place] [address] Andre Osborne MD [address] [place] [address] [facility] Start: 09-05-2023 End: 09-05-2023 Patient encounter procedure 09/05/2023 9:00 AM EDT Office Visit [facility] [address] [place] [address] Andre Osborne MD [address] [place] [address] [facility] Start: 09-03-2023 End: 09-03-2023 Patient encounter procedure 09/03/2023 9:00 AM EDT Office Visit [facility] [address] [place] [address] Andre Osborne MD [address] [place] [address] [facility] Start: 08-30-2023 End: 08-30-2023 Patient encounter procedure 08/30/2023 9:00 AM EST Office Visit [facility] [address] [place] [address] Andre Osborne MD [address] [place] [address] [facility] Start: 08-29-2023 End: 08-29-2023 Patient encounter procedure 08/29/2023 9:00 AM EST Office Visit [facility] [address] [place] [address] Andre Osborne MD [address] [place] [address] [facility] Start: 08-27-2023 End: 08-27-2023 Patient encounter procedure 08/27/2023 9:00 AM EST Office Visit [facility] [address] [place] [place] [address] Andre Osborne MD [address] [place] [address] [facility] Start: 08-23-2023 End: 08-23-2023 Patient encounter procedure 08/23/2023 9:00 AM EST Office Visit [facility] [address] [place] [place] [address] Andre Osborne MD [address] [place] [address] [facility] Start: 08-22-2023 End: 08-22-2023 Patient encounter procedure 08/22/2023 9:00 AM EST Office Visit [facility] [address] [place] [place] [address] Andre Osborne MD [address] [place] [address] [facility] Start: 08-20-2023 End: 08-20-2023 Patient encounter procedure 08/20/2023 9:00 AM EST Office Visit [facility] [address] [place] [address] Andre Osborne MD [address] [place] [address] [facility] Start: 08-16-2023 End: 08-16-2023 Patient encounter procedure 08/16/2023 9:00 AM EST Office Visit [facility] [address] [place] [address] Andre Osborne MD [address] [place] [address] [facility] Start: 08-15-2023 End: 08-15-2023 Patient encounter procedure 08/15/2023 9:00 AM EST Office Visit [facility] [address] [place] [address] Andre Osborne MD [address] [place] [address] [facility] Start: 08-13-2023 End: 08-13-2023 Patient encounter procedure 08/13/2023 9:00 AM EST Office Visit [facility] [address] [place] [address] Andre Osborne MD [address] [place] [address] [facility] Start: 08-09-2023 End: 08-09-2023 Patient encounter procedure 08/09/2023 9:00 AM EST Office Visit [facility] [address] [place] [address] Andre Osborne MD [address] [place] [address] [facility] Start: 08-08-2023 End: 08-08-2023 Patient encounter procedure 08/08/2023 9:00 AM EST Office Visit [facility] [address] [place] [address] Andre Osborne MD [address] [place] [address] [facility] Start: 08-06-2023 End: 08-06-2023 Patient encounter procedure 08/06/2023 9:00 AM EST Office Visit [facility] [address] [place] [address] Andre Osborne MD [address] [place] [address] [facility] Start: 08-02-2023 End: 08-02-2023 Patient encounter procedure 08/02/2023 9:00 AM EST Office Visit [facility] [address] [place] [address] Andre Osborne MD [address] [place] [address] [facility] Start: 08-01-2023 End: 08-01-2023 Patient encounter procedure 08/01/2023 9:00 AM EST Office Visit [facility] [address] [place] [address] Andre Osborne MD [address] [place] [address] [facility] Start: 07-30-2023 End: 07-30-2023 Patient encounter procedure 07/30/2023 9:00 AM EST Office Visit [facility] [address] [place] [address] Andre Osborne MD [address] [place] [address] [facility] Start: 07-26-2023 End: 07-26-2023 Patient encounter procedure 07/26/2023 9:00 AM EST Office Visit [facility] [address] [place] [address] Andre Osborne MD [address] [place] [address] [facility] Start: 07-25-2023 End: 07-25-2023 Patient encounter procedure 07/25/2023 9:00 AM EST Office Visit [facility] [address] [place] [address] Andre Osborne MD [address] [place] [address] [facility] Start: 07-23-2023 End: 07-23-2023 Patient encounter procedure 07/23/2023 9:00 AM EST Office Visit [facility] [address] [place] [address] Andre Osborne MD [address] [place] [address] [facility] Start: 07-19-2023 End: 07-19-2023 Patient encounter procedure 07/19/2023 9:00 AM EST Office Visit [facility] [address] [place] [address] Andre Osborne MD [address] [place] [address] [facility] Start: 07-18-2023 End: 07-18-2023 Patient encounter procedure 07/18/2023 9:00 AM EST Office Visit [facility] [address] [place] [address] Andre Osborne MD [address] [place] [address] [facility] Start: 07-16-2023 End: 07-16-2023 Patient encounter procedure 07/16/2023 9:00 AM EST Office Visit [facility] [address] [place] [address] Andre Osborne MD [facility] [place] [address] [facility] Start: 07-12-2023 End: 07-12-2023 Patient encounter procedure 07/12/2023 9:00 AM EST Office Visit [facility] [address] [place] [address] Andre Osborne MD [facility] [place] [address] [facility] Start: 07-11-2023 End: 07-11-2023 Patient encounter procedure 07/11/2023 9:00 AM EST Office Visit [facility] [address] [place] [address] Andre Osborne MD [address] [place] [address] [facility] Start: 06-22-2023 End: 06-22-2024 XR Chest PA and Lateral X-ray chest 2 views Imaging Routine SOB (shortness of breath) Expected: 06/22/2023, Expires: 06/22/2024 [facility] Work Phone: Comment on above: Expected: 06/22/2023 , Expires: 06/22/2024 Start: 06-22-2023 End: 06-22-2023 Patient encounter procedure 06/22/2023 11:30 AM EST [facility] [address] [place] [address] Eddie Dougherty MD [address] [place] [address] [facility] Start: 02-23-2023 Influenza vaccination Influenza Vacc ine [facility] [employer] [facility] Start: 2017 Administration of varicella zoster vaccine Zoster (Shingles) [facility] 2) [facility] Start: 1985 Diabetic foot examination Diabetic F [facility]ot Exam [facility] Start: 1979 Depression Screening Depression Scre [facility]ing [facility] Start: 1967 Glaucoma screening Diabetic Op [facility]thalmology Exam [facility] Start: 1967 Urine screening for protein Urine Microalbumin [facility] End: 12-22-2023 Ambulatory referral to Cardiac Rehab Ambulatory referral to Cardiac Rehab Card Rehab Routine S/P right coronary artery (RCA) stent placement Per Treatment Plan for 36 Occurrences starting 06/22/2023 until 12/22/2023 [facility] Comment on above: Per Treatment Plan f or 36 Occurrences starting 06/22/2023 until 12/22/2023 End: 09-19-2024 Basic metabolic 2000 panel - Serum or Plasma Basic Metabolic Panel Lab Routine ACS (acute coronary syndrome) ([facility]) 1 Occurrences starting 09/20/2023 until 09/19/2024 [employer] Work Phone: Comment on above: 1 Occurrences starti ng 09/20/2023 until 09/19/2024 CARDIOPULMONARY REHABILITATION CARDIOPULMONARY REHABILITATION Cardiac Services Ordered: 07/09/2023 [employer] [facility] Comment on above: Ordered: 07/09/2023 CARDIOPULMONARY [...] REHABILITATION CARDIOPULMONARY REHABILITATION Cardiac Services Ordered: 09/13/2023 [facility] Comment on above: Ordered: 09/13/2023 CARDIOPULMONARY REHABILITATION CARDIOPULMONARY REHABILITATION Cardiac Services Ordered: 09/19/2023 [facility] Comment on above: Ordered: 09/19/2023 CARDIOPULMONARY REHABILITATION CARDIOPULMONARY REHABILITATION Cardiac Services Ordered: 09/24/2023 [facility] Comment on above: Ordered: 09/24/2023 End: 09-19-2024 Magnesium [Mass/volume] in Serum or Plasma Magnesium Lab Routine ACS (acute coronary syndrome) ([facility]) 1 Occurrences starting 09/20/2023 until 09/19/2024 [facility] Comment on above: 1 Occurrences starti ng 09/20/2023 until 09/19/2024 End: 06-22-2024 Natriuretic peptide B [Mass/volume] in Blood BNP Lab Routine SOB (shortness of breath) 1 Occurrences starting 06/22/2023 until 06/22/2024 [facility] Comment on above: 1 Occurrences starti ng 06/22/2023 until 06/22/2024 Immunizations Immunization Date Immunization Notes Care Provider Komal blackman 07-04-2018 influenza virus vaccine, unspecified formulation Maria Elena Nguyen [facility] Payers Date Payer Category Payer Unknown [id number] 2023 Unknown [id number] 2022 Unknown [id number] 2022 Worker's Compensation [id number] Worker's Compensation WORKER'S C [employer] WORKER'S [id number] ONLY [id number] 2019-Present [address] [id number] 1.2.840.724205.1.13.424 .2.7.3.348030.315 1965 Unknown [id number] 2.16.840.1.263810.3.579 .2.727 1965 Unknown [id number] 2.16.840.1.858781.3.579 .2.727 1967 Unknown [id number] 2.16.840.1.351629.3.579 .2.1285 1965 Unknown [id number] 2.16.840.1.702401.3.579 .2.1285 1967 Unknown [id number] 2.16.840.1.250849.3.579 .2.1285 1967 Unknown [id number] 2.16.840.1.048739.3.579 .2.1285 1967 Unknown [id number] 2.16.840.1.726032.3.579 .2.1285 1967 Unknown [id number] 2.16.840.1.637825.3.579 .2.1285 1967 Unknown [id number] 2.16.840.1.831857.3.579 .2.1285 1967 Unknown [id number] 2.16.840.1.813031.3.579 .2.1285 1967 Unknown [id number] 2.16.840.1.189948.3.579 .2.1285 1967 Unknown [id number] 2.16.840.1.783728.3.579 .2.1285 1967 Unknown [id number] 2.16.840.1.597376.3.579 .2.1285 1967 Unknown [id number] 2.16.840.1.545698.3.579 .2.1285 1967 Unknown [id number] 2.16.840.1.414786.3.579 .2.1285 1967 Unknown [id number] 2.16.840.1.353215.3.579 .2.1285 1967 Unknown [id number] 2.16.840.1.004971.3.579 .2.1285 1967 Unknown [id number] 2.16.840.1.762275.3.579 .2.1285 1967 Unknown [id number] 2.16.840.1.910867.3.579 .2.1285 1967 Unknown [id number] 2.16.840.1.691658.3.579 .2.1285 1967 Unknown [id number] 2.16.840.1.174998.3.579 .2.1285 1967 Unknown [id number] 2.16.840.1.834395.3.579 .2.1285 1967 Unknown [id number] 2.16.840.1.649594.3.579 .2.1285 1967 Unknown [id number] 2.16.840.1.036270.3.579 .2.1285 1967 Unknown [id number] 2.16.840.1.733330.3.579 .2.1285 1967 Unknown [id number] 2.16.840.1.288942.3.579 .2.1285 1967 Unknown [id number] 2.16.840.1.205528.3.579 .2.1285 1967 Unknown [id number] 2.16.840.1.483562.3.579 .2.1285 1967 Unknown [id number] 2.16.840.1.728113.3.579 .2.1285 1967 Unknown [id number] 2.16.840.1.159168.3.579 .2.1285 1967 Unknown [id number] 2.16.840.1.921282.3.579 .2.1285 1967 Unknown [id number] 2.16.840.1.045157.3.579 .2.1285 1967 Unknown [id number] 2.16.840.1.697142.3.579 .2.1285 1967 Unknown [id number] 2.16.840.1.874335.3.579 .2.1285 1967 Unknown [id number] 2.16.840.1.120917.3.579 .2.1285 1967 Unknown [id number] 2.16.840.1.765433.3.579 .2.1285 1967 Unknown [id number] 2.16.840.1.856591.3.579 .2.1285 1967 Unknown [id number] 2.16.840.1.131563.3.579 .2.1285 1967 Unknown [id number] 2.16.840.1.182235.3.579 .2.1285 1967 Unknown [id number] 2.16.840.1.646075.3.579 .2.1285 1967 Unknown [id number] 2.16.840.1.237498.3.579 .2.1285 1967 Unknown [id number] 2.16.840.1.629306.3.579 .2.1285 1967 Unknown [id number] 2.16.840.1.937211.3.579 .2.1285 1967 Unknown [id number] 2.16.840.1.300081.3.579 .2.1285 1967 Unknown [id number] 2.16.840.1.305708.3.579 .2.1285 1967 Unknown [id number] 2.16.840.1.548244.3.579 .2.1285 1967 Unknown [id number] 2.16.840.1.238345.3.579 .2.1285 1967 Unknown [id number] 2.16.840.1.931107.3.579 .2.1285 1967 Unknown [id number] 2.16.840.1.448717.3.579 .2.1285 1967 Unknown [id number] 2.16.840.1.289669.3.579 .2.1285 1967 Unknown [id number] 2.16.840.1.385789.3.579 .2.1285 1967 Unknown [id number] 2.16.840.1.290464.3.579 .2.1285 1967 Unknown [id number] 2.16.840.1.117658.3.579 .2.1285 1967 Unknown [id number] 2.16.840.1.004300.3.579 .2.1285 1967 Unknown [id number] 2.16.840.1.922990.3.579 .2.1285 1967 Unknown [id number] 2.16.840.1.429650.3.579 .2.1285 1967 Unknown [id number] 2.16.840.1.328624.3.579 .2.1285 1967 Unknown [id number] 2.16.840.1.578395.3.579 .2.1285 1967 Unknown [id number] 2.16.840.1.064563.3.579 .2.1285 1967 Unknown [id number] 2.16.840.1.257956.3.579 .2.1285 1967 Unknown [id number] 2.16.840.1.632121.3.579 .2.1285 1967 Unknown [id number] 2.16.840.1.862863.3.579 .2.1285 1967 Unknown [id number] 2.16.840.1.925129.3.579 .2.1285 1967 Unknown [id number] 2.16.840.1.503326.3.579 .2.1285 1967 Unknown [id number] 2.16.840.1.138606.3.579 .2.1285 1967 Unknown [id number] 2.16.840.1.895455.3.579 .2.196 1967 Unknown [id number] 2.16.840.1.042916.3.579 .2.196 1967 Unknown [id number] 2.16.840.1.748999.3.579 .2.196 1967 Unknown [id number] 2.16.840.1.846984.3.579 .2.9 1967 Unknown [id number] 2.16.840.1.563861.3.579 .2.9 1967 Unknown [id number] 2.16.840.1.244093.3.579 .2.9 1967 Unknown [id number] 2.16.840.1.498081.3.579 .2.9 1967 Unknown [id number] 2.16.840.1.490197.3.579 .2.9 1967 Unknown [id number] 2.16.840.1.431024.3.579 .2.9 1967 Unknown [id number] 2.16.840.1.642230.3.579 .2.9 Private Health Insurance [id number] 2.16.840.1.449252.19 Social History Date Type Detail Facility Unknown if ever smoked [employer] Other Start: 08-05-2020 End: 10-03-2022 Sex Assigned At [facility] Start: 10-03-2022 Tobacco smoking status NHIS Never smoked tobacco [facility] Start: 10-03-2022 Tobacco use and exposure Smokeless tobacco non-user [facility] Start: 06-12-2023 End: 09-20-2023 Alcohol intake Current drinker of alcohol (finding) [facility] Start: 08-05-2020 End: 10-03-2022 History of Social function [facility] Are you worried or concerned that in the next two months you may not have stable housing that you own, rent or stay in as a part of a household? No [facility] Start: 07-18-2019 Alcohol Comment occassional [facility] Start: 1965 Sex Assigned At Not on file [facility] Medical Equipment Procedure Code Equipment Code Equipment Origin al Text Equipment Identifier Dates System Cor Stnt 3.5mm X 12mm 145cm Bernard [employer] Tom - [id number], [id number] FDA Start: 06-11-2023 Use strip as directed by glucometer [id number] Start: 06-12-2023 Goals Date Patient Goal Desired [...] esophagitis Obstructive sleep apnea syndrome Morbid obesity ([facility]) Ventral hernia Chronic deep vein thrombosis (DVT) of lower extremity ([facility]) ACS (acute coronary syndrome) ([facility]) Acute coronary syndrome ([facility]) Unstable angina ([facility]) DM2 (diabetes mellitus, type 2) ([facility]) Allergies Allergen Reactions Amoxicillin Other Reaction(s): Unknown [...] Arthritis Asthma DM2 (diabetes mellitus, type 2) ([facility]) 06/10/2023 DVT (deep venous thrombosis) ([facility]) chronic LLE on Eliquis Hypertension Obesity Visual impairment No data recorded No data recorded No data recorded Past Surgical History: Procedure Laterality Date APPENDECTOMY ARTHROSCOPY MENISCECTOMY KNEE & CPT 15401 Left 09/20/2021 Performed by Mason Vang Jr., DO at [facility] Cardiac catheterization N/A 06/11/2023 Performed by Andre Osborne MD at [facility] CARPAL TUNNEL RELEASE Bilateral Coronary angiogram and left ventricular gram/pressure N/A 06/11/2023 Performed by Andre Osborne MD at [facility] HERNIA REPAIR x4 NECK SURGERY C6&7 [facility] 2006 SHOULDER ARTHROSCOPY Stent drug-eluting right coronary artery N/A 06/11/2023 Performed by Andre Osborne MD at [facility] Family History Problem [...] Referring Physician: Maya Mattson MD [address] [place] [address] documented in this encounter [facility] 09-19-2023 Miscellaneous Notes Called patient to remind them to bring their most current copy of their medication list with them to their appt. Patient verbalizes understanding. documented in this encounter [facility] 09-19-2023 Telephone encounter Note Called patient to remind them to bring their most current copy of their medication list with them to their appt. Patient verbalizes understanding. [facility] 06-22-2023 History of Present illness Narrative Damien Frank Date of visit: 06/22/2023 Date of : 1965 Age: 58 y.o. Patient Active Problem List Diagnosis Essential (primary) hypertension Anxiety Gastroesophageal reflux disease without esophagitis Obstructive sleep apnea syndrome Morbid obesity ([facility]) Ventral hernia Chronic deep vein thrombosis (DVT) of lower extremity ([facility]) ACS (acute coronary syndrome) ([facility]) Acute coronary syndrome ([facility]) Unstable angina ([facility]) DM2 (diabetes mellitus, type 2) ([facility]) Allergies Allergen Reactions Amoxicillin Other Reaction(s): Unknown [...] follow-up visit. Discharge earlier this month from [facility] after being admitted with unstable angina underwent [...] Arthritis Asthma DM2 (diabetes mellitus, type 2) ([facility]) 06/10/2023 DVT (deep venous thrombosis) ([facility]) chronic LLE on Eliquis Hypertension Obesity Visual impairment No data recorded No data recorded No data recorded Past Surgical History: Procedure Laterality Date APPENDECTOMY ARTHROSCOPY MENISCECTOMY KNEE & CPT 51999 Left 09/20/2021 Performed by Mason Vang Jr., DO at [facility] Cardiac catheterization N/A 06/11/2023 Performed by Andre Osborne MD at [facility] CARPAL TUNNEL RELEASE Bilateral Coronary angiogram and left ventricular gram/pressure N/A 06/11/2023 Performed by Andre Osborne MD at [facility] HERNIA REPAIR x4 NECK SURGERY C6&7 [facility] 2006 SHOULDER ARTHROSCOPY Stent drug-eluting right coronary artery N/A 06/11/2023 Performed by Andre Osborne MD at [facility] Family History Problem [...] Morbid obesity with BMI of 50.0-59.9, adult ([facility]) Previous cardiac related labs and [...] Referring Physician: Maya Mattson MD [address] [place] [address] documented in this encounter [facility] 06-21-2023 Miscellaneous Notes Unable to remind patient of appointment. Phone was not accepting calls at this time.DEEPAK Mojica documented in this encounter [facility] 06-21-2023 Telephone encounter Note Unable to remind patient of appointment. Phone was not accepting calls at this time.DEEPAK Mojica [facility] 08-22-2021 Evaluation note Encounter Date Diagnosis Assessment [...] that that is indicated in this scenario. Sharon Mochila Other Evaluation noteNo InformationNortEncompass [facility] [employer] Other Evaluation note* Diagnosis S/P right coronary artery (RCA) stent placement- Primary Essential hypertension Unspecified essential hypertension Pure hypercholesterolemia History of DVT (deep vein thrombosis) Morbid obesity with BMI of 50.0-59.9, adult (CMS-HCC) SOB (shortness of breath) Shortness of breath documented [facility] this encounter [facility] Diagnosis SOB (shortness of breath) Shortness of breath [facility] Diagnosis Acute coronary syndrome (CMS-HCC) Intermediate coronary syndrome [facility] Diagnosis Acute coronary syndrome (CMS-HCC) Intermediate coronary syndrome [facility] Diagnosis Acute coronary syndrome (CMS-HCC) Intermediate coronary syndrome documented in this encounter [facility]* Diagnosis Acute coronary syndrome (CMS-HCC) Intermediate coronary syndrome [facility] Diagnosis Acute coronary syndrome (CMS-HCC) Intermediate coronary syndrome [facility] Diagnosis Acute coronary syndrome (CMS-HCC) Intermediate coronary syndrome documented in this encounter [facility] Diagnosis Acute coronary syndrome [...] Intermediate coronary syndrome documented in this [facility]* Diagnosis Acute coronary syndrome (CMS-HCC) Intermediate coronary syndrome [facility] Diagnosis Acute coronary syndrome (CMS-HCC) Intermediate coronary syndrome [facility]* Diagnosis Acute coronary syndrome (CMS-HCC) Intermediate coronary syndrome [facility]* Diagnosis Acute coronary syndrome (CMS-HCC) Intermediate coronary syndrome [facility]* Diagnosis Acute coronary syndrome (CMS-HCC) Intermediate coronary syndrome [facility]* Diagnosis Acute coronary syndrome (CMS-HCC) Intermediate coronary syndrome [facility]* Diagnosis Acute coronary syndrome (CMS-HCC) Intermediate coronary syndrome documented [facility]* Diagnosis Acute coronary syndrome (CMS-HCC) Intermediate coronary syndrome documented in this encounter [facility]* Diagnosis ACS (acute coronary syndrome) (CMS-HCC)- Primary Intermediate coronary syndrome documented in this encounter [facility] System[facility] general Narrative - Reported* Type Description Date Medical History hypertension Medical History sleep apnea Medical History asthma Medical History blood clot left lower leg Surgical History C6-C7 neck fusion Surgical History hernia repair x4 Surgical History appendectomy Surgical History Bilateral CTR Surgical History right shoulder Hospitalization History appendectomy [employer] Other InstructionsNot on filedocumented in this encounter [facility] System[facility]ructionsNot on filedocumented in this encounter [facility] SystemInstructionsNot on filedocumented in this encounter [facility] [employer] SystemInstructionsNot on filedocumented in this encounter [facility] SystemInstructionsNot on filedocumented in this encounter [facility] SystemInstructionsNot on filedocumented in this encounter [facility] SystemReason for referral (narrative)* Consultation (Routine) - Pending Review Specialty Diagnoses / Procedures Referred By Contac t Referred To Contact Cardiac Rehabilitation Diagnoses S/P right coronary artery (RCA) stent placement Procedures Ambulatory referral to Cardiac Rehab Eddie Dougherty MD [address] [place] [address] [facility] Card[facility] Rehab Billing [address] [place] [address] Referral ID Status Reason Start Date Expiration Date V isits Requested Visits Authorized [id number] Pending Review 06/22/2023 06/21/2024 36 36 On license of [facility] for visit Narrative* Consultation (Routine) - Authorized Specialty Diagnoses / Procedures Referred By Contac t Referred To Contact Cardiac Rehabilitation Diagnoses Acute coronary syndrome (CMS-HCC) Procedures [facility] [place] Andre Osborne MD [address] [place] [address] [facility] Cardiac Rehab Billing [address] [place] [address] Referral ID Status Reason Start Date Expiration Date V isits Requested Visits Authorized [id number] Authorized 06/11/2023 06/10/2024 36 36 On license of [facility] for visit Narrative* Consultation (Routine) - Pending Review Specialty Diagnoses / Procedures Referred By Petra t Referred To Contact Cardiac Rehabilitation Diagnoses Acute coronary syndrome ([facility]) Procedures [facility] [place] Andre Osborne MD [address] [place] [address] [facility] Cardiac Rehab Billing [address] [place] [address] Referral ID Status Reason Start Date Expiration Date V isits Requested Visits Authorized [id number] Pending Review 06/11/2023 06/10/2024 36 36 [facility] Summary Purpose Family History No Family History [...] section and content) DATE CREATED AUTHOR 08/01/2021 [facility] DATE CREATED AUTHOR AUTHOR'S ORGANIZ ATION 08/18/[address] [facility] DATE CREATED AUTHOR AUTHOR'S ORGANIZ ATION 04/18/2022 [facility] DATE CREATED AUTHOR AUTHOR'S ORGANIZ ATION 06/14/2023 [facility] DATE CREATED AUTHOR AUTHOR'S ORGANIZ ATION 11/17/2023 [facility] DATE CREATED AUTHOR AUTHOR'S ORGANIZ ATION 01/19/2024 [facility] DATE CREATED AUTHOR AUTHOR'S ORGANIZ ATION 01/26/2024 [facility] dical Specialists EPIC REASON FOR VISIT (unrecogniz ed section and content) Reason Comments Follow-up EST PT TTH s/p Cath/ stent SCHED W/ Reason Comments Follow-up 3 MONTH Care Teams (unrecognized sec tion and content) Dock Clerk Relationship Specialty Start Date End Date Maya Mattson MD [address] [place] [address] PCP - General Family Medicine 08/15/17 Dock Clerk Relationship Specialty Start Date End Date Maya Mattson MD [address] [place] [address] PCP - General Family Medicine 08/15/17 Dock Clerk Relationship Specialty Start Date End Date Maya Mattson MD [address] [place] [address] PCP - General Family Medicine 08/15/17 Dock Clerk Relationship Specialty Start Date End Date Maya Mattson MD [address] [place] [address] PCP - General Family Medicine 08/15/17 Dock Clerk Relationship Specialty Start Date End Date Maya Mattson MD [address] [place] [address] PCP - General Family Medicine 08/15/17 Dock Clerk Relationship Specialty Start Date End Date Maya Mattson MD [address] [place] [address] PCP - General Family Medicine 08/15/17 Dock Clerk Relationship Specialty Start Date End Date Maya Mattson MD [address] [place] [address] PCP - General Family Medicine 08/15/17 Dock Clerk Relationship Specialty Start Date End Date Maya Mattson MD [address] [place] [address] PCP - General Family Medicine 08/15/17 Dock Clerk Relationship Specialty Start Date End Date Maya Mattson MD [address] [place] [address] PCP - General Family Medicine 08/15/17 Dock Clerk Relationship Specialty Start Date End Date Maya Mattson MD [address] [place] [address] PCP - General Family Medicine 08/15/17 Dock Clerk Relationship Specialty Start Date End Date Maya Mattson MD [address] [place] [address] PCP - General Family Medicine 08/15/17 Dock Clerk Relationship Specialty Start Date End Date Maya Mattson MD [address] [place] [address] PCP - General Family Medicine 08/15/17 Dock Clerk Relationship Specialty Start Date End Date Maya Mattson MD [address] [place] [address] PCP - General Family Medicine 08/15/17 Dock Clerk Relationship Specialty Start Date End Date Maya Mattson MD [address] [place] [address] PCP - General Family Medicine 08/15/17 Dock Clerk Relationship Specialty Start Date End Date Maya Mattson MD [address] [place] [address] PCP - General Family Medicine 08/15/17 Dock Clerk Relationship Specialty Start Date End Date Maya Mattson MD [address] [place] [address] PCP - General Family Medicine 08/15/17 Dock Clerk Relationship Specialty Start Date End Date Maya Mattson MD [address] [place] [address] PCP - General Family Medicine 08/15/17 Dock Clerk Relationship Specialty Start Date End Date Maya Mattson MD [address] [place] [address] PCP - General Family Medicine 08/15/17 Dock Clerk Relationship Specialty Start Date End Date Maya Mattson MD [address] [place] [address] PCP - General Family Medicine 08/15/17 Dock Clerk Relationship Specialty Start Date End Date Maya Mattson MD [address] [place] [address] PCP - General Family Medicine 08/15/17 Dock Clerk Relationship Specialty Start Date End Date Maya Mattson MD [address] [place] [address] PCP - General Family Medicine 08/15/17 Dock Clerk Relationship Specialty Start Date End Date Maya Mattson MD [address] [place] [address] PCP - General Family Medicine 08/15/17 Dock Clerk Relationship Specialty Start Date End Date Maya Mattson MD [address] [place] [address] PCP - General Family Medicine 08/15/17 Dock Clerk Relationship Specialty Start Date End Date Maya Mattson MD [address] [place] [address] PCP - General Family Medicine 08/15/17 Dock Clerk Relationship Specialty Start Date End Date Maya Mattson MD [address] [place] [address] PCP - General Family Medicine 08/15/17 FOR [...] BE BASED ON THE PRIMARY CLINICAL RECORDS. [facility] [employer] [facility]. provides no warranty or guarantee of the accuracy or completeness of information in this document.
--- NOTE | 2024-02-06 09:41 | P.CN_ITS ---
Consult Note: HPI Data of Consult Patient: known to practice within the last 3 years Consult date: 04/23/23 Requesting Physician: Florencia Tatum NP Primary Care Provider: ALLISON MATTSON Consult Narrative Reason for consult: Low back, bilateral lower extremity pain Narrative: 57yom who presents for evaluation. Worsening low back, bilateral lower extremity pain for months to years. Has engaged in >6 weeks of provider directed home exercise course, with minimal benefit. Uses tylenol and tizanidine, with some benefit. Lumbar mri reviewed, which is significant for spondylosis throughout much of lumbar spine, as well as multilevel stenosis, worst at l4-5. Prior EMG consistent with L3/4 radiculopathy. denies adverse med side effects. Recent left L3-4 L4-5 TFESI and left sij injection providing mild relief. Pain today 1/10 increasing to 8/10 with standing walking activity. Patient noticing increase in falls and left foot dragging. Denies loss of bowel/bladder. cc:: CC: Florencia Tatum NP Review of Systems ROS Status of ROS 10 or more systems reviewed and unremark able except as noted in history and below Musculoskeletal Reports: back pain and extremity pain PFSH PFSH Medical History Low back pain ?M54.50 - Low back pain, unspecified (ICD-10) Diabetes ?E11.9 - Type 2 diabetes mellitus without complications (ICD-10) Sleep apnea ?G47.30 - Sleep apnea, unspecified (ICD-10) Asthma ?J45.909 - Unspecified asthma, uncomplicated (ICD-10) Surgical History S/P left knee arthroscopy ?Z98.890 - Other specified postprocedural states (ICD-10) S/P arthroscopy of shoulder ?Z98.890 - Other specified postprocedural states (ICD-10) H/O cervical spine surgery ?Z98.890 - Other specified postprocedural states (ICD-10) History of umbilical hernia repair ?Z98.890 - Other specified postprocedural states (ICD-10) ?Z87.19 - Personal history of other diseases of the digestive system (ICD-10) S/P inguinal hernia repair ?Z98.890 - Other specified postprocedural states (ICD-10) ?Z87.19 - Personal history of other diseases of the digestive system (ICD-10) S/P carpal tunnel release ?Z98.890 - Other specified postprocedural states (ICD-10) History of appendectomy ?Z90.49 - Acquired absence of other specified parts of digestive tract (ICD- 10) Meds Home Medications and Allergies Home Medications ?Medication ?Instructions ?Recorded ?Confirmed ?Type apixaban 5 mg tablet (Eliquis) 5 mg PO BID 04/23/23 01/28/24 History metformin 500 mg tablet 500 mg PO BID 04/23/23 01/28/24 History metoprolol tartrate 50 mg tablet 50 mg PO BID 04/23/23 01/28/24 History tizanidine 4 mg capsule (Zanaflex) 4 mg PO BID PRN muscle spasticity 04/23/23 01/28/24 History ascorbic acid (vitamin C) 500 mg 500 mg PO DAILY 10/11/23 01/28/24 History tablet (C-500) multivitamin 1 tab PO DAILY 10/11/23 01/28/24 History omega 7-wee-jpu-fish oil 300 1 cap PO DAILY 10/11/23 01/28/24 History mg-1,000 mg capsule (Fish Oil) ticagrelor 60 mg tablet (Brilinta) 60 mg PO BID 10/11/23 01/28/24 History diazepam 10 mg tablet mg 01/28/24 History gabapentin 300 mg capsule 300 mg PO TID #90 caps 02/06/24 Rx tizanidine 4 mg tablet (Zanaflex) 4 mg PO BEDTIME PRN muscle 02/06/24 Rx spasticity #30 tabs Allergies Allergy/AdvReac Type Severity Reaction Status Date / Time amoxicillin [From Augmentin] Allergy Unknown Gastrointestinal Verified 01/28/24 07:56 Upset clavulanic acid Allergy Unknown Gastrointestinal Verified 01/28/24 07:56 [From Augmentin] Upset Exam Constitutional Documenting provider has reviewed patient's vital signs: yes Common normals: no apparent distress, oriented x3, healthy appearing, alert and well nourished General appearance: cooperative HENVA Common normals: normocephalic, hearing grossly normal bilaterally and moist oral mucous membranes Head and scalp: normocephalic Eye Common normals: PERRL Pupil: PERRL Neck & C-Spine Common normals: full ROM General: normal visual inspection Chest Common normals: inspection of chest normal Respiratory Common normals: normal respiratory effort, no retractions and no use of accessory muscles Back & Pelvis Lumbar spine/lower back: ROM limited, pain with ROM and straight leg raise negative bilaterally Sacroiliac joints: SI joints normal Other: left hip pain with internal rotation altered sensation to left L3,4,5 pattern strength 5/5 in BLE Extremity Common normals: normal to inspection and full ROM Neuro Common normals: oriented x3, CN's II-XII intact bilaterally, moves all extremities, no focal motor deficits, no sensory deficits noted and deep tendon reflexes 2+ bilaterally Sensorium/orientation: alert Gait (neuro): antalgic Motor exam: strength 5/5 throughout and no movement abnormalities noted Psych Common normals: mental status grossly normal, thought process normal, cooperative, affect normal, speech normal and activity/motor behavior normal Speech: normal speech Thought process: normal thought process Results Additional Findings Additional findings: If on a controlled substance or opioids, I have checked an [place] report on this patient and there are no aberrancies noted in the prescribing history.??If on a controlled substance or opioid a drug screen was completed and reviewed within the last year, and if there has not been a drug screen completed we ordered one today to monitor higher risk, state monitored pain medication use. As part of providing excellent, safe, comprehensive care, the following was completed at our patient's visit: 1. A medication reconciliation and review to ensure accurate knowledge of current/active medications, including asking our patients to inform us about any [id number] medications or herbal remedies/nutritional supplements/alternative remedies. 2. A review to specifically ensure our patients have had annual screening for screening for depression, screening for tobacco use, and screening for unhealthy alcohol use. For concerning screenings had a discussion with the patient, provided patient education, and recommended follow-up with primary care provider when appropriate. If patient noted with a risk of falling, they received education on strength, gait, and balance training to prevent future risk of falling. Assessment and Plan Assessment and Plan (1) Lumbar stenosis with neurogenic claudication: (2) Sacroiliac joint dysfunction of both sides: (3) Lumbar spondylosis: (4) Left hip pain: (5) Lumbar degenerative disc disease: Plan We discussed numerous options including updating lumbar MRI, left hip xray, Neurology consult, NS consult, and medication management today. Patient not interested in additional injections at this time due to costs. Spinal cord stimulator education provided. Patient agreeable to starting gabapentin 300mg TID as tolerated, can call in 2 weeks to discuss effectiviness, risks vs benefits reviewed today. continue zanaflex 4mg HS cannot tolerate during the day. Update left hip xray. Defer neurology and NS referral, defer updating lumbar MRI at this time. continue HEP as tolerated avoid NSAIDs with blood thinners/cardiac hx f/u 6 weeks to assess medication regimen
== END 2024-02-06 09:08 | disposition home or self-care (01) ==
PROVIDERS: PCP Family Medicine; Visit Provider Nurse Practitioner
DX: M48.062 Spinal stenosis, lumbar region with neurogenic claudication (principal); M53.3 Sacrococcygeal disorders, not elsewhere classified; M47.816 Spondylosis without myelopathy or radiculopathy, lumbar region; M25.552 Pain in left hip; M51.36 Other intervertebral disc degeneration, lumbar region
CPT/HCPCS: G0463

== ENCOUNTER 2024-03-19 09:15 | Outpatient (OUT) | payer OTHER, SELFPAY ==
--- OUTSIDE RECORDS SUMMARY | 2024-03-19 09:27 | XMS_ITS | CCD ---
Author Organization [facility] Inform ion Partnership [facility] Care Team Providers Care Cloth Measurer Machine Name Role Phone Cortez Varma Unavailable Ford Humphreys Admitting Unavailable Ford Humphreys Attending Unavailable Diego CASTRO Attending Unavailable Dieter Duarte Attending Unavailable KIESHA CORONEL Admitting Unavailab KIESHA Roberts Attending Unavailab FERNANDO Brooks Referring Unavailab MAYA Linda Primary Care Unavailable RAFAELA SUAREZ Consulting Unavailable KATHLEEN PATRICK Consulting Unavailable Maya Mattson MD Primary Care Provider [phone] ANDRE OSBORNE Referring Unavailabl MAYA Ramirez Primary [...] Primary Care Unavailable ANDRE OSBORNE Referring Unavailabl e MAYA MATTSON Primary Care Unavailable KATHY LOPEZ Attending Unavailable MAYA MATTSON Referring Unavailable MAYA MATTSON Primary Care Unavailable [facility] Referring Unavailabl e MAYA MATTSON Primary Care Unavailable [facility] Referring Unavailabl e MAYA MATTSON Primary Care Unavailable [facility] Referring Unavailabl e MAYA MATTSON Primary Care Unavailable EDDIE DOUGHERTY Attending Unavailable MAYA MATTSON Referring Unavailable MAYA MATTSON Primary Care Unavailable MAYA MATTSON Referring Unavailable MAYA MATTSON Primary Care Unavailable [facility] Referring Unavailabl e MAYA MATTSON Primary Care Unavailable [facility] Referring Unavailabl e MAYA MATTSON Primary Care Unavailable [facility] Referring Unavailabl e MAYA MATTSON Primary Care Unavailable [facility] Referring Unavailabl e MAYA MATTSON Primary Care Unavailable [facility] Referring Unavailabl e MAYA MATTSON Primary Care Unavailable [facility] Referring Unavailabl e MAYA MATTSON Primary Care Unavailable [facility] Referring Unavailabl e MAYA MATTSON Primary Care Unavailable [facility] Referring Unavailabl e MAYA MATTSON Primary Care Unavailable [facility] Referring Unavailabl e MAYA MATTSON Primary Care Unavailable [facility] Referring Unavailabl e MAYA MATTSON Primary Care Unavailable [facility] Referring Unavailabl e MAYA MATTSON Primary Care Unavailable [facility] Referring Unavailabl e MAYA MATTSON Primary Care Unavailable [facility] Referring Unavailabl e MAYA MATTSON Primary Care Unavailable [facility] Referring Unavailabl e MAYA MATTSON Primary Care Unavailable [facility] Referring Unavailabl e MAYA MATTSON Primary Care Unavailable [facility] Referring Unavailabl e MAYA MATTSON G Primary Care Unavailable [facility] Referring Unavailabl e SRINIVASAN, MAYA G Primary Care Unavailable [facility] Referring Unavailabl e MAYA MATTSON G Primary Care Unavailable [facility] Referring Unavailabl e MAYA MATTSON G Primary Care Unavailable [facility] R Referring Unavailabl e MAYA MATTSON G Primary Care Unavailable [facility] Referring Unavailabl e MAYA MATTSON G Primary Care Unavailable [facility] Referring Unavailabl e MAYA MATTSON G Primary Care Unavailable [facility] Referring Unavailabl e MAYA MATTSON G Primary Care Unavailable [facility] Referring Unavailabl e MAYA MATTSON G Primary Care Unavailable [facility] Referring Unavailabl e MAYA MATTSON G Primary Care Unavailable [facility] Referring Unavailabl e MAYA MATTSON G Primary Care Unavailable [facility] Referring Unavailabl e MAYA MATTSON G Primary Care Unavailable [facility] Referring Unavailabl e MAYA MATTSON G Primary Care Unavailable [facility] Referring Unavailabl e MAYA MATTSON G Primary Care Unavailable [facility] Referring Unavailabl e MAYA MATTSON G Primary Care Unavailable [facility] Referring Unavailabl e MAYA MATTSON G Primary Care Unavailable [facility] Referring Unavailabl e MAYA MATTSON G Primary Care Unavailable [facility] R Referring Unavailabl e MAYA MATTSON G Primary Care Unavailable [facility] R Referring Unavailabl e MAYA MATTSON G Primary Care Unavailable [facility] R Referring Unavailabl e MAYA MATTSON G Primary Care Unavailable [facility] R Referring Unavailabl e MAYA MATTSON G Primary Care Unavailable MAYUR BUTLER Attending Unavailable MAYA MATTSON Referring Unavailable MAYA MATTSON G Primary Care Unavailable MAYA MATTSON Attending Unavailable MAYA MATTSON Referring Unavailable MAYA MATTSON Attending Unavailable MAYA MATTSON Attending Unavailable MAYA MATTSON Attending Unavailable MAYA MATTSON Attending Unavailable Maxwell ABRAHAM, Elayne Kendall Attending Unavailable Maya Mattson MD Primary Care Reece Mattson MD, Maya Youngblood Primary Care Unavaila randi Arreola MD, Elayne Kendall Attending Unavailable Srinivasan ABRAHAM, Maya Youngblood Primary Care Unavaila randi Arreola MD, Elayne Kendall Attending Unavailable Srinivasan ABRAHAM, Maya Youngblood Primary Care Unavaila randi Arreola MD, Elayne Kendall Attending Unavailable Allergies Allergy Classification Reported Allergen(s) Allergy Type Date of Onset Reaction(s) Facility (20 sources) Amoxicillin / Clavulanate Drug Allergy 9 Other (See Comments) [employer] Other (1 source) Amoxicillin / Clavulanate; Translations: [Augmentin] Drug Allergy [facility] Repository (2 sources) AMOXICILLIN-POT CLAVULANATE; Translations: [AMOXICILLIN-PO T CLAVULANATE] Propensity to adverse reactions to drug (disorder) 9 [facility] Repository (20 sources) Amoxicillin; Translations: [AMOXICILLIN] Drug Allergy 3 [facility] Medications Current Medications Medication Drug Class(es) [...] Drug Class(es) Dates Sig (Normalized) Sig (Original) [id number] 200 actuat albuterol 0.09 mg/actuat metered dose [...] 1.5 mg/ml oral solution (2 sources) Uncompetitive B-ilkoie-V-aspartate Receptor Antagonist, Sigma-1 Agonist Start: 06-02-2019 [place] DM 7.5-7.5 MG/5ML 10 ml Orally every [...] Results Test Name Value Interpretation Reference Range [facility] Glucose Glucometer (BldC) [M ass/Vol]on 09-17-2023 Glucose [Mass/Vol] 103 mg/dL High 65-99 [facility] Glucose [Mass/Vol] 103 mg/dL High 65 - 99 mg/dL [facility] Interpretation and review of laboratory results Abnormal [facility] Glucose Glucometer (BldC) [M ass/Vol]on 09-05-2023 Glucose [Mass/Vol] 120 mg/dL High 65-99 [facility] Glucose [Mass/Vol] 120 mg/dL High 65 - 99 mg/dL [facility] Interpretation and review of laboratory results Abnormal [facility] Glucose Glucometer (BldC) [M ass/Vol]on 07-30-2023 Glucose [Mass/Vol] 105 mg/dL High 65-99 [facility] Glucose [Mass/Vol] 121 mg/dL High 65-99 [facility] Glucose Glucometer (BldC) [M ass/Vol]on 07-26-2023 Glucose [Mass/Vol] 132 mg/dL High 65-99 [facility] Glucose [Mass/Vol] 132 mg/dL High 65 - 99 mg/dL [facility] Interpretation and review of laboratory results Abnormal [facility] Glucose Glucometer (BldC) [M ass/Vol]on 07-25-2023 Glucose [Mass/Vol] 102 mg/dL High 65-99 [facility] Glucose [Mass/Vol] 144 mg/dL High 65-99 [facility] Glucose [Mass/Vol] 144 mg/dL High 65 - 99 mg/dL [facility] Glucose [Mass/Vol] 102 mg/dL High 65 - 99 mg/dL [facility] Interpretation and review of laboratory results Abnormal [facility] Glucose Glucometer (BldC) [M ass/Vol]on 07-23-2023 Glucose [Mass/Vol] 136 mg/dL High 65-99 [facility] Glucose Glucometer (BldC) [M ass/Vol]on 07-18-2023 Glucose [Mass/Vol] 115 mg/dL High 65-99 [facility] Glucose [Mass/Vol] 152 mg/dL High 65-99 [facility] Glucose [Mass/Vol] 115 mg/dL High 65 - 99 mg/dL [facility] Interpretation and review of laboratory results Abnormal [facility] Glucose [Mass/Vol] 152 mg/dL High 65 - 99 mg/dL [facility] Interpretation and review of laboratory results Abnormal [facility] Glucose Glucometer (BldC) [M ass/Vol]on 07-16-2023 Glucose [Mass/Vol] 118 mg/dL High 65-99 [facility] Glucose [Mass/Vol] 142 mg/dL High 65-99 [facility] Glucose Glucometer (BldC) [M ass/Vol]on 07-12-2023 Glucose [Mass/Vol] 107 mg/dL High 65-99 [facility] Glucose [Mass/Vol] 130 mg/dL High 65-99 [facility] Glucose [Mass/Vol] 130 mg/dL High 65 - 99 mg/dL [facility] Glucose [Mass/Vol] 107 mg/dL High 65 - 99 mg/dL [facility] Interpretation and review of laboratory results Abnormal [facility] Glucose Glucometer (BldC) [M ass/Vol]on 07-11-2023 Glucose [Mass/Vol] 93 mg/dL Normal 65-99 [facility] Glucose [Mass/Vol] 180 mg/dL High 65-99 [facility] Glucose [Mass/Vol] 93 mg/dL 65 - 99 mg/dL [facility] Glucose [Mass/Vol] 180 mg/dL High 65 - 99 mg/dL [facility] Interpretation and review of laboratory results Abnormal [facility] Glucose Glucometer (BldC) [M ass/Vol]on 07-09-2023 Glucose [Mass/Vol] 115 mg/dL High 65-99 [facility] Glucose [Mass/Vol] 129 mg/dL High 65-99 [facility] Glucose [Mass/Vol] 115 mg/dL High 65 - 99 mg/dL [facility] Interpretation and review of laboratory results Abnormal [facility] Glucose [Mass/Vol] 129 mg/dL High 65 - 99 mg/dL [facility] Interpretation and review of laboratory results Abnormal [facility] BNPon 06-27-2023 [facility] XR CHEST 2 VIEWSon 3 XR [...] the neruo consult for right now. Normal [facility] Progress Note-Nurse Message left on patient's VM that he was approved for Neurology Consult and to call back if he wanted to go ahead with that visit. [facility] Workers' Comp Officeon 04-18 Workers' Comp Office [id number]# 1.00CD:[address] [facility] Coding Summary.on 04-17-2022 Coding Summary. CD:[id number] G h0bWw+PGhlYWQ+HV4GHOZ gR43mpAXmsQ3XU7oPBW0H HFZJQOSWML8PEQ9nfUM3J UbnM6CkocYh RuuqaZFnMM11VDl8BTR1u RgvMAomiY4bvJVlF3s7Xj AzRS71aM00ZQgzKJRzZbL 3LjZpbjsgbWFy U9xkFcJyzYFgFvy+PHRhY mxlIHdpZHRoPScxMDAlJy SxzUphCJ9cXp1cEBKkTJE vbGxhcHNlOiBj h0hyBQJhHPbbQS7abSxcX 7DcxEC7HEQpc4y7Ci37sV I+PQVhINV6dHxjVIcli15 1XcJvw9jrLOZ2 jJYkDOjcSOB1Q88pp8D3N IYzRNWfXQT9dCS3kG2xbJ xjydneM8BbxKNlUiO3CWC 1pCDqvY1mkLso qtgwwJ2mEej+P52RGF9JE HWVTQ8ROtl3Q7GrSufeyZ I+EW68EHYkOE21jAZbzZB kt9sitMx2UmHc ENCyKUK0cZtbEWazn7ZaG UGdR19vsMMgk5S0UHNjkI egtIYsPhObjEX5nR5zQNq awlrod7hdkvoz Ikvqh0tbff02uW13B57rK OwhGVZsONM3OUIfXHYyaC bpky7msW0aUh2+UMuvs8k mo7gtjNk5YrWr YOMgcqUcbVqxXDN4c1CbS c99U3TftUgvm9CgDax0fz 64cFCml0Q9mHD3OJzlTWY tvE1jKGqbFrY0 WWWuSdTerA00fKXbGFraA v8hmEnehScrGP8wSFSwxf lbAJLlkG2pAPVzlFNfgRy qVM4rECAtmdry j293BtEwWOK8GAQiqSKiY 9CzeE5vOxPaMBBsBWLqM4 LemEPkZDlkV117WRknQjD 9DWRhaaJlX3Ta VSKxiHdaSqK6u3B1Si0Ox 7TmxouzSVW3FRadMBLxBm I7ZoPtPoP8O3NxHty9CUS egUwrCJ1vX8Mb IYCkefthnntqqRJ8RNMaQ IZzyS73qRUjGKthHb1vr8 T3s729IJPgFOUlkH35Ax2 udDogMTBwdCBU yX1mwgqia3olpyqxOiNsL VNrACd2QRg5UCQbyHowMl QwPIU3GtU3YMJ7oOUpyC3 zcPsmsshcjK3q Oyc+Y64eiY7yYMW3JXF2g djaJQXpsuBwWS91ZK82J5 RyPjwvdGFibGU+PGRpdiB meKlwFQ1gFrCc d2gpr6RyAFstV4JeFKNiP QbiFod6GCLfFDN8gKO8bD 0mTEXfRVcut3V6lVP9U0S hhqQtud4jy8fj UKXlOLhxM20upUVkc1P4D INnhOU5JKAsdYjkWpAahS 93Oyc+HTCeyGqkh7AxFuz ts9ets8czbUk5 SnXzLDPmlmZhuAglMVM6g 7EkZu87B23oMYvfGSMwDX MzPZKbSXCsnMzgol1uyF0 wIi8+PGNvbCB3 kQM0fD4fTSEkUqH0PKjhA 262FcSdaRRcQsvab5nop8 eoqAo9ObMkWZFheqYuaFn iIXI1l5WcKi27 I60oIMeeBPFbSCThLWOvU NIitJmlln1jwW8kRq0+PC 9yh8zwzy06tK84aNG+PHR mTGD4dEmcOAjs FJBudH3nVZnkDdX8TGWhU fIqnM82uCBuCTfyUl0jwN lfwFocBC4hTVTftmdht11 6RbJpo6tmJDLs fAKwKByyLBX2Y97pt4I3O RRwUCXdKKX4rLL5rS2rtW lnbjogbGVmdDsgdmVydGl uIZdsSHcrN583 IHRvcDsnPlBhdGllbnQgT tPnGWs1U5VaXco1IKOvsJ vfKU7ejRFtAHznHg3huQo zvJnyMF1jPBUl iuzws605VxGwf9zdMWYod XBmUPnpBCF7Y51ev4J6TM AlBSVjTGZ8sZB3rF5knFk nbjogbGVmdDsg nvAzaXrzPXfdKGjjX436I HRvcDsnPkJpcnRoIERhdG F3OQ23ZL51oZKwl0I5iOK 9W1GtVIBsgyxw anbdhHL2MFXxZCDebH36Y r9jtDumKw5bLOPnOAD9MZ KbvFSiD7MtyS1pYjMkAWZ zJSHwJ9CcqBUc LTulU999XGaiFuQ8GPVsb pHxL8RsXTHejKzhShV2j1 Z0Hc6EP6M1UV75II03jQP or1T0jDW7X4Ur CNBvhlypnobkcUU8FELvV IXywC62Qu7gaSkiFh6uIF MfQJX2OLDsdZRcQ6EyqQ5 yOiAjMDAwMDAw S9QqyQYaSSzlE756BVtgT fL8MSObqaMrH7YrLBQcrW kbRdP9d1V6Eo3UZGw4UQ0 8HF42sYJkw5M2 eIX7D0EzUKGxikbvpakjt ER3BTSzGJGluG18Bi6laT jrEt8zEUShALI7YHYbpZV eA5BlpP2gViVy XLZcWEInN4VepVLvLUpsD 075DRklBaF2RSIknpVqE3 PpLCDidQhlEzM5c3P4Ko9 MBHXfFJ97UVX4 wVR8VZ52RS79A5OeDhdhd GFibGU+PHRhYmxlIHdpZH RoPScxMDAlJyBzdHlsZT0 pJh6qEVBkVREf tKyvdJHrGrJof5etRLCzA AzxRB0yhGovH6AzjJE7SQ Kjy4y7Kl14B80iL0NcxTG +XJWdrAQ9bVZ0 mI9tFnAqVcP2MZheK953N jAlkPEzDjlbg4hyn0nipY d9MnQ4EKKsunDqeIchNBE 2j0IePx49J03o IHdpZHRoPSIxNSUiIHZhb Ojcyt8fhO6lWe2+PGNvbC B1fRZ2yD7wKeZdTwQ5QKj nN995ZhLvxMWe Grndk4qhu4tizJc1SpXqR YFjtdTnpNmwUDX7w0MdZo 97Q3EapZosw4IoVxb3sl9 4rLXdc4U5uIA3 N8QmFWCfuranjYUciSwqI S6oBKIbxwsdOAFqbY3uCZ BhM8m3HtKvTwZ4PGiwL8N scyT6YGOrcKZq KRgpSBA5V87ww8P3WDFaT EWmPBO7wWS6pC1vhOvply ogbGVmdDsgdmVydGljYWw nQNoiI923PWRp oZeyGQQvvY4gMZGslFZmx LkzEC2gRMYulovdUvZZZW FJWLCHKF5WCPVUOOC1W5W rOwc5NMKzeVrk QP5koHTdBNkrUx9xtRlfm WuzXS2lYLWplmheAQTzpE 7wGLMmcCBtbSljGB3xHRK xlqjuv953XhPw DQX4JYZfpTMgH7XnaU0aC rEoAYVtZHKcP2ZrsGNtFI vmB974JAzaSsK3PIGbinG kM1KrFUPmgYim UxC9d9O5Wq9mQG7kUt3bE XB0ZP77OO38cKXjo3M3rN P7K1MpAAPcnfzgssiztXK 6TTYfFUTchU87 kDLbLRccRx7pp5G6c053H STpFHQmbU30Ml1xxAvlKC AwtRWTwH1ytisym1uzjfk gIzAwMDAwMDt0 OPa4FUXasSsxFjEaCGT2L zD7CNB4nIWbdI1bnNofhe adkW7pPsr+NTQgWWVhcnM 5A3YtUqv1EPFr gTjwVE9iwULgXQguQz2rc FmaqBdkVH4aMSOfjesoZU RgcX7uECXcxBQczWxtJB2 lZJNhyyqww672 FcHyOHV1BNEbrVQcW9Lun S2qBoYuQTVfSTCaU9UrzZ MfLBdqM487RSegPiY2LSI vcpIqX6PtYAPm gBzvBfX9l7Q5Bz3ZXDmeZ R35IN10qZHhh2G8mVQ6P1 DhMYFtgbnbbhnvxAP6NEJ vIJLvqI24cQPg GJmoRf9no5Y9u504DFYjZ SDceL29Zf1pfMhhOYDvgC AZcZ7ifppwg8odikppOeK fROXiRMs4HLh0 PPPyxFioNgBmVJY9XuJ1Z RY8tJDusB2pkAzslrgedH 9wOyc+RA6crsejyfM2OF4 6CJ08D8ZhDpjc dGFibGU+PHRhYmxlIHdpZ HRoPScxMDAlJyBzdHlsZT 6zHo2yJSUwBTLowRzlnNP bBrYwz0diRGFv MYvjBZ7cfWfhF6AtgEN4N EPei8d2Bn54A63vF0ExvL A+XGObvEJ4dCE6mM1aYdY tSyW3PHdaL471 KhKvoAYsRscgw1lbx1mhg Ar0TcDsGBUkqkMjsNpwNA C2r3PiEq89F00oVIavTUW oPSIyMCUiIHZh fFcywz6uaN8lCk3+PGNvb UP9xGN6pU2aQbBtYgB4XS muM271LqTajELqNaqkX07 jR1QkoMY+PHRy Nbl9SWYeyOkuIR6hlJJzQ BeuGm1mOGF1MpJeDeGzFB paY1TnLHFmgpnqmtfelSD 8CQCbMVJwyT01 Hy0ryCchZr4xUHOaUUP6E ACgwASmH8PokG4lBsFoHD VwKZTpF1XfeXHqRAgsU43 7VTqdTiQ6FPXk scStA6PvIGYkvEaxPbJ0z 2S0Hc2NmWfxbYRwOB1nAd TzNWv3Z8DaDhn2FDXfeGx kQJ9vdSKnNQmo Os6wkUyqhYcdDF8iDDLnc evmg157LyQzx8nzQJWtlD FjPBbfLWL2D18wt2O8LVN cSDRjKPU3dVU1 kX8abTfwggrzwIOwfBqsv sPcdCobHYyzPWdpO183HZ WnxMmkSpTXGdd3G7BqEhm 7BVUgpJrbYN7g dKYbJWctVp8uyTjybTisZ U8jPGQxvggtv494YyDdy7 pxEWXktRFiNOtbFUY6Y49 yi9B2YQSnXFTd YML9tTV5lY7xePvaurycf GVmdDsgdmVydGljYWwtYW wcS485KWTprKpuMg4ZJis 4T5TfToh7QFTd sIpxGE8jyCTdXGyeWv6pi ApihTyuTT3vYIGqhfphz0 63XtEuz8fuPOGshVUgTSs tFUD1X36zk0L4 KVWiYRTmTTW7vON6uC4dj GlnbjogbGVmdDsgdmVydG ykNBolSYxyJ701HDIcoCg nPlBheWVyOjwv dGQ+QO99ce32A4QuPriiG zm7UJUpDKO4zDA1aE3qQK PrBGfrz9L2wSE1H0QrpiN lfc9ll4lrNISa ZTog (more content not included)... [facility] Workers' Comp Officeon 04-17 Workers' Comp Office [id number]#1 .00CD:[address] [facility] Workers' Comp Office [id number]#1 .00CD:[address] [facility] Workers' Comp Office [id number]#1 .00CD:[address] [facility] Consenton 04-13-2022 Consent [id number]#1 .00CD:[address] [facility] Progress Note-Physicianon Progress Note-Physician Patient: DAMIEN FRANK Age: 56 years Sex: Male : 1965 Associated Diagnoses: None Author: Ford Humphreys DO Chief Complaint 04/13/2022 10:24 EDT pt bent over to open a door and hit his head on the door, pt states he felt dizziness, pain and nausea after incident , treated at [facility] ER and CT [...] Impression and Plan Diagnosis Abrasion of scalp (WMG05-UM S00.01XA, Working, Medical). Acute head injury (HKQ19-RZ S09.90XA, Working, Medical). Concussion (RRA90-YL S06.0XAA, Working, Medical). two days post-injury continues [...] with a possible concussion. f/u TBD [facility] Comment on above: Result Comment: Elec tronically Signed By: Petr MILLER, Ford Mathews\.br\Date and Time Signed: 04/13/22 16:58 EDT Discharge Instructionson Discharge Instructions [id number]# 1.00CD:[address] [facility] ED Traumaon 04-12-2022 ED Trauma [id number]# 1.00CD:[address] [facility] Workers Comp Formson 022 Workers Comp Forms [id number]# 1.00CD:[address] [facility] CT Head or Brain w/o Contras [...] Bueno MD Transcribed by: MEHNAZ Technologist: NELLIE Jacques [facility] CT Spine Cervical w/o Contra ston [...] MD Transcribed by: MEHNAZ Technologist: NELLIE [facility] Capillary Glucose POCon 03-25 Glucose [Mass/Vol] 104 mg/dL High 55-99 [facility] Comment on above: Result Comment: Sisi ernestine Meter Performed By: #### 2 [id number] ####[facility] [address] [place] [address] Consent for Treatmenton 03-25 Consent for Treatment [id number]#1 .00CD:[address] [facility] ED Clinical Summaryon 2021 ED Clinical Summary [place] [id number] ED Clinical Summary Person Information Name: DAMIEN FRANK Velma/[facility] Age: 56 Years : 1965 Sex: Male Language: Argentine PCP: MAYA MATTSON MD Marital Status: Phone: [phone] Visit Id: Visit Reason: Dizziness; Trauma - [...] 04/11/2022 19:44:56 04/11/2022 19:44:56 04/11/2022 19:44:56 ADDRESS: [address] [place] [id number] PHYS DOC NOTES: Addendum by Dieter Duarte DO on April 11, 2022 19:07:31 EDT MEDICAL INFORMATION: Prescriptions Given: Medications to Continue with No Changes Other Medications metoprolol (metoprolol 25 mg ER Tab) 1 Tablets By Mouth 2 times a day. PATIENT EDUCATION INFORMATION: Instructions: Head Injury, Adult; Abrasion, Juha-rg-Oduj Follow up: With: Address: When: [employer] [facility]: [facility] [phone] In 3 days 04/14/2022 With: Address: When: MAYA MATTSON [facility] [place], [place] [id number] Business (4) In 3 days DIAGNOSIS: Head injury; Scalp abrasion [facility] ED Note-Physicianon 04-11-20 ED Note-Physician Basic [...] ER symptoms should change or worsen. [facility] Comment on above: Result Comment: Elec [...] at home: Medicines ? Take or apply xmam-xri-kuqictv and prescription medicines only as told by [...] cannot use soap and water, use hand inspector toys. ? Change your bandage as told by [...] 11/27/2008 Document Revised: 05/24/2018 Document Reviewed: 01/31/2018 Elsevier Patient Education ? 2019 [employer]. Neurology Head Injury, Adult There are many [...] brain t (more content not included)... [facility] ED Patient Summaryon 022 ED Patient Summary [address] [address] Patient Discharge Instructions Person Information Name: DAMIEN FRANK Age: 56 Years Arrival Date: 04/11/2022 17:11:51 Discharge Diagnosis: Head injury; Scalp abrasion Primary Care Physician: MAYA MATTSON MD Provider Information Primary Provider: Dieter Duarte DO Advanced Hamper Maker:None The exam and treatment you received in the Emergency Department were for an urgent problem and are not intended as complete care. It is important that you follow up with a doctor, nurse practitioner, or physician?s prosthetic assistant for ongoing care. If your symptoms become worse or you do not improve as expected and you are unable to reach your usual health care provider, you should return to the Emergency Department. We are available 24 hours a day. DAMIEN FRANK has been given the following list of patient education materials, prescriptions and follow-up instructions: Follow-up Instructions: With: Address: When: [facility]: [facility] [phone] In 3 days 04/14/2022 With: Address: When: MAYA MATTSON [address] [place] [phone] [facility] In 3 days In the event that this physician does not participate in your insurance network, please consult with your insurance company to find a nearby participating provider. Patient Education Materials: Head Injury, Adult; Abrasion, Zocl-ix-Gvel A MESSAGE TO ALL PATIENTS REGARDING OPIOIDS PRESCRIPTION OPIOIDS: WHAT YOU NEED TO KNOW Prescription opioids can be used to help relieve ijcunbzq-zd-jobmqk pain and are often prescribed following a [...] with addiction, tell your health career development consultant and a (more content not included)... [facility] Vaccinationson 04-11-2022 Vaccinations [id number]# 1.00CD:[address] [facility] US Venous, Unilat, Lower Ext Lefton [...] by Shaun Dunlap on 08/01/2021 1038 Normal [facility] Tier MR knee LT wo conon 04-19-20 MR knee LT wo con [facility] [place] [address] [place] [address] MRI Report Signed Patient: Damien Frank MR#: [id number] : [id number] Acct:[id number] Age/Sex: 55 / M ADM Date: 04/19/21 Loc: [facility] Room: Type: [facility] Attending Dr: Cortez Hall PA-C [...] Guillermo Recio M.D.04/19/2021 5:39 PM Dictation Location: [place] [address] Transcribed By: [facility] 04/19/211738 Dictated By: Guillermo Recio II, MD 04/19/211729 Signed By: 04/19/211738 [facility] Vital Signs Date Time Vital Sign Value Performing Clinician Facility 09-20-2023 08:50-0400 Body height 180.3 cm [facility] 09-20-2023 08:50-0400 Body mass index (BMI) [Ratio] 47.7 kg/m2 Kathy Lopez MD Work Phone: [facility] 09-20-2023 08:50-0400 Body weight 155.13 kg Kathy Lopez MD Work Phone: [facility] 09-20-2023 08:50-0400 Diastolic blood pressure 72 mm[Hg] Kathy Lopez MD Work Phone: [facility] 09-20-2023 08:50-0400 Heart rate 63 /min Kathy Lopez MD Work Phone: [facility] 09-20-2023 08:50-0400 SaO2% (BldA) [Mass fraction] 94 % Kathy Lopez MD Work Phone: [facility] 09-20-2023 08:50-0400 Systolic blood pressure 136 mm[Hg] Kathy Lopez MD Work Phone: [facility] 06-22-2023 11:21-0500 Body height 180.3 cm Eddie Dougherty MD Work Phone: [facility] 06-22-2023 11:21-0500 Body mass index (BMI) [Ratio] 50.01 kg/m2 Eddie Dougherty MD Work Phone: [facility] 06-22-2023 11:21-0500 Body weight 162.66 kg Eddie Dougherty MD Work Phone: [facility] 06-22-2023 11:21-0500 Diastolic blood pressure 80 mm[Hg] Eddie Dougherty MD Work Phone: [facility] 06-22-2023 11:21-0500 Heart rate 55 /min Eddie Dougherty MD Work Phone: [facility] 06-22-2023 11:21-0500 SaO2% (BldA) [Mass fraction] 99 % Eddie Dougherty MD Work Phone: [facility] 12-29-2023 11:21-0500 Systolic blood pressure 126 mm[Hg] Eddie Dougherty MD Work Phone: [employer] 08-22-2021 14:45-0500 Body height 180.34 cm Cortez Varma Other [employer] Other 08-22-2021 14:45-0500 Body mass index (BMI) [Ratio] 50.9 kg/m2 Cortez Varma Other [employer] Other 08-22-2021 14:45-0500 Body temperature 98.9 [degF] Cortez Varma Other [employer] Other 08-22-2021 14:45-0500 Body weight 165.56 kg Cortez Varma Other [employer] Other 08-22-2021 14:45-0500 Diastolic blood pressure 62 mm[Hg] Cortez Varma Other [employer] Other 08-22-2021 14:45-0500 SaO2% (BldA) [Mass fraction] 96 % Cortez Varma Other [employer] Other 08-22-2021 14:45-0500 Systolic blood pressure 140 mm[Hg] Cortez Varma Other [employer] Other Encounters Encounter Date Encounter Type Care Provider Facility Start: 01-28-2024 End: 01-28-2024 ambulatory Maya Mattson MD Facility: [facility] Start: 01-24-2024 End: 01-24-2024 ambulatory MAYA MATTSON Not Available Start: 01-14-2024 End: 01-14-2024 ambulatory Maya Mattson MD Facility:[facility] Start: 11-14-2023 End: 11-14-2023 [facility] Start: 10-22-2023 End: 10-24-2023 ambulatory ANDRE R [facility] Start: 10-18-2023 End: 10-24-2023 ambulatory ANDRE R [facility] Start: 10-17-2023 End: 10-24-2023 ambulatory ANDRE R [facility] Start: 10-15-2023 End: 10-24-2023 ambulatory ANDRE R [facility] Start: 10-11-2023 End: 10-24-2023 ambulatory ANDRE R [facility] Start: 10-10-2023 End: 10-24-2023 ambulatory [place] [facility] Start: 10-08-2023 End: 10-24-2023 ambulatory ANDRE R [facility] Start: 10-04-2023 End: 10-24-2023 ambulatory ANDRE R [facility] Start: 10-03-2023 End: 10-24-2023 ambulatory ANDRE R [facility] Start: 10-01-2023 End: [facility] Start: 09-27-2023 End: 10-24-2023 ambulatory [place] R [facility] Start: 09-26-2023 End: 10-24-2023 ambulatory ANDRE R [facility] Start: 09-24-2023 End: 10-24-2023 Clinical Support Andre Osborne MD Work Phone: [facility] Start: 09-20-2023 End: 09-24-2023 ambulatory [place] [facility] Start: 09-20-2023 End: 09-20-2023 Office outpatient visit 15 minutes Kathy Lopez MD Work Phone: [facility] Comment on above: ACS (acute coronary syndrome) [place] [place] (Primary Dx[place] Start: 09-19-2023 Telephone encounter Maya Hubbard [facility] Start: 09-19-2023 End: 09-19-2023 ambulatory [facility] Start: 09-19-2023 End: 09-19-2023 Patient encounter procedure Andre Osborne MD Work Phone: [facility] Comment on above: Acute coronary syndr ome [place] [place] Start: 09-17-2023 End: 09-17-2023 ambulatory [facility] Start: 09-17-2023 End: 09-17-2023 Patient encounter procedure Andre Osborne MD Work Phone: [facility] Comment on above: Acute coronary syndr ome [place] [place] Start: 09-13-2023 End: 09-13-2023 [facility] Start: 09-13-2023 End: 09-13-2023 Patient encounter procedure Andre Osborne MD Work Phone: [facility] Comment on above: Acute coronary syndr ome [place] [place] Start: 09-12-2023 End: 09-12-2023 [facility] Start: 09-10-2023 End: 09-24-2023 [facility] Start: 09-06-2023 End: 09-06-2023 ambulatory [facility] Start: 09-06-2023 End: 09-06-2023 Patient encounter procedure Andre Osborne MD Work Phone: [facility] Comment on above: Acute coronary syndr ome [place] [place] Start: 09-05-2023 End: 09-05-2023 ambulatory [facility] Start: 09-05-2023 End: 09-05-2023 Patient encounter procedure Andre Osborne MD Work Phone: [facility] Comment on above: Acute coronary syndr ome [place] [place] Start: 09-03-2023 End: 09-24-2023 [facility] Start: 08-30-2023 End: 08-30-2023 [facility] Start: 08-30-2023 End: 08-30-2023 Patient encounter procedure Andre Osborne MD Work Phone: [facility] Comment on above: Acute coronary syndr ome [place] [place] Start: 08-29-2023 End: 08-29-2023 [facility] Start: 08-29-2023 End: 08-29-2023 Patient encounter procedure Andre Osborne MD Work Phone: [facility] Comment on above: Acute coronary syndr ome [place] [place] Start: 08-27-2023 End: 09-24-2023 [facility] Start: 08-23-2023 End: 08-23-2023 [facility] Start: 08-23-2023 End: 08-23-2023 Patient encounter procedure Andre Osborne MD Work Phone: [facility] Comment on above: Acute coronary syndr ome [place] [place] Start: 08-22-2023 End: 08-22-2023 ambulatory [facility] Start: 08-22-2023 End: 08-22-2023 Patient encounter procedure Andre Osborne MD Work Phone: [facility] Comment on above: Acute coronary syndr ome [place] [place] Start: 08-20-2023 End: 08-20-2023 [facility] Start: 08-16-2023 End: 08-16-2023 ambulatory [place] Start: 08-15-2023 End: 08-15-2023 [facility] Start: 08-15-2023 End: 08-15-2023 Patient encounter procedure Andre Osborne MD Work Phone: [facility] Comment on above: Acute coronary syndr ome [place] [place] Start: 08-13-2023 End: 08-13-2023 [facility] Start: 08-13-2023 End: 08-13-2023 Patient encounter procedure Andre Osborne MD Work Phone: [facility] Comment on above: Acute coronary syndr ome [place] [place] Start: 08-09-2023 End: 08-09-2023 [facility] Start: 08-09-2023 End: 08-09-2023 Patient encounter procedure Andre Osborne MD Work Phone: [facility] Comment on above: Acute coronary syndr ome [place] [place] Start: 08-08-2023 End: 08-08-2023 [facility] Start: 08-06-2023 End: 08-06-2023 [facility] Start: 08-06-2023 End: 08-06-2023 Patient encounter procedure Andre Osborne MD Work Phone: [facility] Comment on above: Acute coronary syndr ome [place] [place] Start: 08-02-2023 End: 08-02-2023 [facility] Start: 08-02-2023 End: 08-02-2023 Patient encounter procedure Andre Osborne MD Work Phone: [facility] Comment on above: Acute coronary syndr ome [place] [place] Start: 08-01-2023 End: 08-01-2023 [facility] [place] [facility] Start: 08-01-2023 End: 08-01-2023 Patient encounter procedure Andre Osborne MD Work Phone: [facility] Comment on above: Acute coronary syndr ome [place] [place] Start: 07-30-2023 End: 07-30-2023 ambulatory [place] [facility] Start: 07-26-2023 End: 07-26-2023 ambulatory [place] [facility] Start: 07-26-2023 End: 07-26-2023 Patient encounter procedure Andre Osbrone MD Work Phone: [facility] Comment on above: Acute coronary syndr ome [place] [place] Start: 07-25-2023 End: 07-25-2023 [facility] Start: 07-25-2023 End: 07-25-2023 Patient encounter procedure Andre Osborne MD Work Phone: [facility] Comment on above: Acute coronary syndr ome [place] [place] Start: 07-23-2023 End: [facility] Start: 07-19-2023 End: 07-26-2023 [facility] Start: 07-18-2023 End: 07-18-2023 ambulatory ANDRE [place] [facility] Start: 07-18-2023 End: 07-18-2023 Patient encounter procedure Andre Osborne MD Work Phone: [facility] Comment on above: Acute coronary syndr ome [place] [place] Start: 07-16-2023 End: 07-16-2023 ambulatory [facility] Start: 07-12-2023 End: 07-12-2023 [facility] Start: 07-12-2023 End: 07-12-2023 Patient encounter procedure Andre Osborne MD Work Phone: [facility] Comment on above: Acute coronary syndr ome [place] [place] Start: 07-11-2023 End: 07-11-2023 [facility] Start: 07-11-2023 End: 07-11-2023 Patient encounter procedure Andre Osborne MD Work Phone: [facility] Comment on above: Acute coronary syndr ome [place] [place] Start: 07-09-2023 End: 07-09-2023 [facility] Start: 07-09-2023 End: 07-09-2023 Patient encounter procedure Andre Osborne MD Work Phone: [facility] Comment on above: Acute coronary syndr ome [place] [place] Start: 07-06-2023 End: 07-06-2023 [facility] Start: 06-28-2023 End: 06-28-2023 ambulatory MAYA MATTSON Not Available Start: 06-27-2023 Orders Only Maria Elena Nguyen RMA [facility] Comment on above: SOB (shortness of br eath) Start: 06-22-2023 End: 06-22-2023 ambulatory EDDIE BOUDREAUXUAIB [facility] Start: 06-22-2023 End: 06-22-2023 Office outpatient visit 15 minutes Eddie Dougherty MD Work Phone: [facility] Comment on above: S/P right coronary a rtery (RCA) stent placement (Primary Dx); Essential hypertension; Pure hypercholesterolemia; History of DVT (deep vein thrombosis); Morbid obesity with BMI of 50.0-59.9, adult ([facility]); SOB (shortness of breath) Start: 06-21-2023 Telephone encounter Maria Elena SOTELO [facility] Start: 06-19-2023 End: 06-25-2023 ambulatory MAYA MATTSON [facility] Start: 06-15-2023 End: 06-15-2023 ambulatory MAYA MATTSON Not Available Start: 06-10-2023 ambulatory [facility] Start: 06-05-2023 End: 06-05-2023 ambulatory MAYA MATTSON Not Available Start: 05-21-2023 End: 05-21-2023 ambulatory Maya Mattson MD Facility:PM [facility] Start: 04-23-2023 End: 04-23-2023 ambulatory Elayne Arreola MD Facility:PM Sara Start: 04-13-2022 ambulatory Ford Rangel ty:[facility] Start: 04-11-2022 End: 04-11-2022 Emergency department patient visit Dieter Duarte Facility[place] [place] Start: 04-11-2022 End: 04-12-2022 ambulatory Diego CASTRO Facility:[facility] Start: 09-01-2021 End: 09-01-2021 ambulatory Cortez Varma Other [employer] Other Start: 09-01-2021 Telephone encounter Cortez Vazquez [facility] Start: 08-22-2021 End: 08-22-2021 ambulatory Cortez Varma Other [employer] Other Start: 08-22-2021 Office outpatient ne w 45 minutes Cortez Varma [facility] OutPt Procedures Date Procedure Procedure Detail Performing [...] Microalbumin [Mass/volume] in Urine by Test strip [facility] 1 Start: 07-18-2023 End: 07-18-2023 Gluc [...] Td Vaccines (8 - Td or Tdap) [facility] Start: 09-19-2024 Adult BMI Screening Adult BMI Screen ing [facility] Start: 09-19-2024 Tobacco Screening Tobacco Screening [facility] Start: 07-19-2024 Urine screening for protein Urine Microalbumin [facility] Start: 06-22-2024 Adult BMI Screening Adult BMI Screen ing [facility] Start: 06-22-2024 Tobacco Screening Tobacco Screening [facility] Start: 06-11-2024 Adult BMI Screening Adult BMI Screen ing [facility] Start: 03-28-2024 End: 03-28-2024 Patient encounter procedure 03/28/2024 8:30 AM EDT Office Visit [facility] [address] [place] [address] Eddie Dougherty MD [address] [place] [address] [facility] Start: 02-24-2024 Influenza vaccination Influenza Vacc ine [facility] Start: 10-10-2023 End: 10-10-2023 Clinical Support 10/10/2023 8:00 AM EDT Clinical Support [facility] [address] [place] [address] Andre Osborne MD [address] [place] [address] [facility] Start: 10-08-2023 End: 10-08-2023 Patient encounter procedure [facility] Start: 10-04-2023 Adult BMI Follow Up Plan Adult BMI F ollow Up Plan [facility] Start: 10-04-2023 Tobacco Screening Tobacco Screening [facility] Start: 10-04-2023 End: 10-04-2023 Patient encounter procedure [facility] Start: 10-03-2023 End: 10-03-2023 Patient encounter procedure [facility] Start: 10-01-2023 End: 10-01-2023 Patient encounter procedure [facility] Start: 09-27-2023 End: 09-27-2023 Patient encounter procedure 09/27/2023 9:00 AM EDT Office Visit [facility] [address] [place] [address] Andre Osborne MD [address] [place] [address] [facility] Start: 09-26-2023 End: 09-26-2023 Patient encounter procedure [facility] Start: 09-24-2023 End: 09-24-2023 Patient encounter procedure [facility] Start: 09-20-2023 End: 09-20-2023 Patient encounter procedure [facility] Start: 09-19-2023 End: 09-19-2023 Patient encounter procedure 09/19/2023 9:00 AM EDT Office Visit [facility] [address] [place] [address] Andre Osborne MD [address] [place] [address] [facility] Start: 09-17-2023 End: 09-17-2023 Patient encounter procedure 09/17/2023 9:00 AM EDT Office Visit [facility] [address] [place] [address] Andre Osborne MD [address] [place] [address] [facility] Start: 09-13-2023 End: 09-13-2023 Patient encounter procedure 09/13/2023 9:00 AM EDT Office Visit [facility] [address] [place] [address] Andre Osborne MD [address] [place] [address] [facility] Start: 09-12-2023 End: 09-12-2023 Patient encounter procedure 09/12/2023 9:00 AM EDT Office Visit [facility] [address] [place] [address] Andre Osborne MD [address] [place] [address] [facility] Start: 09-10-2023 End: 09-10-2023 Patient encounter procedure 09/10/2023 9:00 AM EDT Office Visit [facility] [address] [place] [address] Andre Osborne MD [address] [place] [address] [facility] Start: 09-06-2023 End: 09-06-2023 Patient encounter procedure 09/06/2023 9:00 AM EDT Office Visit [facility] [address] [place] [address] Andre Osborne MD [address] [place] [address] [facility] Start: 09-05-2023 End: 09-05-2023 Patient encounter procedure 09/05/2023 9:00 AM EDT Office Visit [facility] [address] [place] [address] Andre Osborne MD [address] [place] [address] [facility] Start: 09-03-2023 End: 09-03-2023 Patient encounter procedure 09/03/2023 9:00 AM EDT Office Visit [facility] [address] [place] [address] Andre Osborne MD [address] [place] [address] [facility] Start: 08-30-2023 End: 08-30-2023 Patient encounter procedure 08/30/2023 9:00 AM EST Office Visit [facility] [address] [place] [address] Andre Osborne MD [address] [place] [address] [facility] Start: 08-29-2023 End: 08-29-2023 Patient encounter procedure 08/29/2023 9:00 AM EST Office Visit [facility] [address] [place] [address] Andre Osborne MD [address] [place] [address] [facility] Start: 08-27-2023 End: 08-27-2023 Patient encounter procedure 08/27/2023 9:00 AM EST Office Visit [facility] [address] [place] [address] Andre Osborne MD [address] [place] [address] [facility] Start: 08-23-2023 End: 08-23-2023 Patient encounter procedure 08/23/2023 9:00 AM EST Office Visit [facility] [address] [place] [address] Andre Osborne MD [facility] [place] [address] [facility] Start: 08-22-2023 End: 08-22-2023 Patient encounter procedure 08/22/2023 9:00 AM EST Office Visit [facility] [address] [place] [address] Andre Osborne MD [address] [place] [address] [facility] Start: 08-20-2023 End: 08-20-2023 Patient encounter procedure 08/20/2023 9:00 AM EST Office Visit [facility] [address] [facility] [address] Andre Osborne MD [address] [place] [address] [facility] Start: 08-16-2023 End: 08-16-2023 Patient encounter procedure 08/16/2023 9:00 AM EST Office Visit [facility] [address] [place] [address] Andre Osborne MD [address] [place] [address] [facility] Start: 08-15-2023 End: 08-15-2023 Patient encounter procedure 08/15/2023 9:00 AM EST Office Visit [facility] [address] [place] [address] Andre Osborne MD [address] [place] [address] [facility] Start: 08-13-2023 End: 08-13-2023 Patient encounter procedure 08/13/2023 9:00 AM EST Office Visit [facility] [address] [place] [address] Andre Osborne MD [address] [place] [address] [facility] Start: 08-09-2023 End: 08-09-2023 Patient encounter procedure 08/09/2023 9:00 AM EST Office Visit [facility] [address] [place] [address] Andre Osborne MD [address] [place] [address] [facility] Start: 08-08-2023 End: 08-08-2023 Patient encounter procedure 08/08/2023 9:00 AM EST Office Visit [facility] [address] [place] [address] Andre Osborne MD [address] [place] [address] [facility] Start: 08-06-2023 End: 08-06-2023 Patient encounter procedure 08/06/2023 9:00 AM EST Office Visit [facility] [address] [place] [address] Andre Osborne MD [address] [place] [address] [facility] Start: 08-02-2023 End: 08-02-2023 Patient encounter procedure 08/02/2023 9:00 AM EST Office Visit [facility] [address] [place] [address] Andre Osborne MD [address] [place] [address] [facility] Start: 08-01-2023 End: 08-01-2023 Patient encounter procedure 08/01/2023 9:00 AM EST Office Visit [facility] [address] [place] [address] Andre Osborne MD [address] [place] [address] [facility] Start: 07-30-2023 End: 07-30-2023 Patient encounter procedure 07/30/2023 9:00 AM EST Office Visit [facility] [address] [facility] [place] [address] Andre Osborne MD [address] [place] [address] [facility] Start: 07-26-2023 End: 07-26-2023 Patient encounter procedure 07/26/2023 9:00 AM EST Office Visit [facility] [address] [place] [address] Andre Osborne MD [address] [place] [address] [facility] Start: 07-25-2023 End: 07-25-2023 Patient encounter procedure 07/25/2023 9:00 AM EST Office Visit [facility] [address] [place] [address] Andre Osborne MD [address] [place] [address] [facility] Start: 07-23-2023 End: 07-23-2023 Patient encounter procedure 07/23/2023 9:00 AM EST Office Visit [facility] [address] [place] [address] Andre Osborne MD [address] [place] [address] [facility] Start: 07-19-2023 End: 07-19-2023 Patient encounter procedure 07/19/2023 9:00 AM EST Office Visit [facility] [address] [place] [address] Andre Osborne MD [address] [place] [address] [facility] Start: 07-18-2023 End: 07-18-2023 Patient encounter procedure 07/18/2023 9:00 AM EST Office Visit [facility] [address] [place] [address] Andre Osborne MD [address] [place] [address] [facility] Start: 07-16-2023 End: 07-16-2023 Patient encounter procedure 07/16/2023 9:00 AM EST Office Visit [facility] [address] [place] [address] Andre Osborne MD [address] [place] [address] [facility] Start: 07-12-2023 End: 07-12-2023 Patient encounter procedure 07/12/2023 9:00 AM EST Office Visit [facility] [address] [place] [address] Andre Osborne MD [address] [place] [address] [facility] Start: 07-11-2023 End: 07-11-2023 Patient encounter procedure 07/11/2023 9:00 AM EST Office Visit [facility] [address] [place] [address] Andre Osborne MD [address] [place] [address] [facility] Start: 06-22-2023 End: 06-22-2024 XR Chest PA and Lateral X-ray chest 2 views Imaging Routine SOB (shortness of breath) Expected: 06/22/2023, Expires: 06/22/2024 [facility] Work Phone: Comment on above: Expected: 06/22/2023 , Expires: 06/22/2024 Start: 06-22-2023 End: 06-22-2023 Patient encounter procedure 06/22/2023 11:30 AM EST Office Visit [facility] [address] [place] [address] Eddie Dougherty MD [address] [place] [address] [facility] Start: 02-23-2023 Influenza vaccination Influenza Vacc ine [facility] Start: 2017 Administration of varicella zoster vaccine Zoster (Shingles) Vaccine (1 of 2) [facility] Start: 1985 Diabetic foot examination Diabetic F oot Exam [facility] Start: 1979 Depression Screening Depression Scre ening [facility] Start: 1967 Glaucoma screening Diabetic Op hthalmology Exam [facility] Start: 1967 Urine screening for protein Urine Microalbumin [facility] End: 12-22-2023 Ambulatory referral to Cardiac Rehab Ambulatory referral to Cardiac Rehab Card Rehab Routine S/P right coronary artery (RCA) stent placement Per Treatment Plan for 36 Occurrences starting 06/22/2023 until 12/22/2023 [facility] Comment on above: Per Treatment Plan f or 36 Occurrences starting 06/22/2023 until 12/22/2023 End: 09-19-2024 Basic metabolic 2000 panel - Serum or Plasma Basic Metabolic Panel Lab Routine ACS (acute coronary syndrome) ([facility]) 1 Occurrences starting 09/20/2023 until 09/19/2024 [employer] Work Phone: Comment on above: 1 Occurrences [...] REHABILITATION CARDIOPULMONARY REHABILITATION Cardiac Services Ordered: 09/12/2023 [facility] Comment on above: Ordered: 09/12/2023 CARDIOPULMONARY REHABILITATION CARDIOPULMONARY REHABILITATION Cardiac Services Ordered: 09/13/2023 [facility] Comment on above: Ordered: 09/13/2023 CARDIOPULMONARY REHABILITATION CARDIOPULMONARY REHABILITATION Cardiac Services Ordered: 09/13/2023 [facility] Comment on above: Ordered: 09/13/2023 CARDIOPULMONARY REHABILITATION CARDIOPULMONARY REHABILITATION Cardiac Services Ordered: 09/19/2023 [facility] Comment on above: Ordered: 09/19/2023 CARDIOPULMONARY REHABILITATION CARDIOPULMONARY REHABILITATION Cardiac Services Ordered: 09/24/2023 [facility] Comment on above: Ordered: 09/24/2023 End: 09-19-2024 Magnesium [Mass/volume] in Serum or Plasma Magnesium Lab Routine ACS (acute coronary syndrome) ([facility]) 1 Occurrences starting 09/20/2023 until 09/19/2024 [facility] Comment on above: 1 Occurrences starti ng 09/20/2023 until 09/19/2024 End: 06-22-2024 Natriuretic peptide B [Mass/volume] in Blood BNP Lab Routine SOB (shortness of breath) 1 Occurrences starting 06/22/2023 until 06/22/2024 [facility] Comment on above: 1 Occurrences starti ng 06/22/2023 until 06/22/2024 Immunizations Immunization Date Immunization Notes Care Provider Komal blackman 07-04-2018 influenza virus vaccine, unspecified formulation Maria Elena Nguyen [facility] Payers Date Payer Category Payer Unknown [id number] 2023 Unknown [id number] 2022 Unknown [id number] 2022 Worker's Compensation [id number] Worker's Compensation WORKER'[employer]ATION WORKER'S [id number] 2019-Present [id number] [id number] 1.2.840.327965.1.13.424 .2.7.3.296630.315 1967 Unknown [id number] 2.16.840.1.588191.3.579 .2.727 1967 Unknown [id number] 2.16.840.1.203304.3.579 .2.727 1967 Unknown [id number] 2.16.840.1.840554.3.579 .2.1285 1967 Unknown [id number] 2.16.840.1.867835.3.579 .2.1285 1967 Unknown [id number] 2.16.840.1.742905.3.579 .2.1285 1967 Unknown [id number] 2.16.840.1.638497.3.579 .2.1285 1967 Unknown [id number] 2.16.840.1.856025.3.579 .2.1285 1967 Unknown [id number] 2.16.840.1.496410.3.579 .2.1285 1967 Unknown [id number] 2.16.840.1.167968.3.579 .2.1285 1967 Unknown [id number] 2.16.840.1.725948.3.579 .2.1285 1967 Unknown [id number] 2.16.840.1.505631.3.579 .2.1285 1967 Unknown [id number] 2.16.840.1.508182.3.579 .2.1285 1967 Unknown [id number] 2.16.840.1.005940.3.579 .2.1285 1967 Unknown [id number] 2.16.840.1.647301.3.579 .2.1285 1967 Unknown [id number] 2.16.840.1.249677.3.579 .2.1285 1967 Unknown [id number] 2.16.840.1.827091.3.579 .2.1285 1967 Unknown [id number] 2.16.840.1.067448.3.579 .2.1285 1967 Unknown [id number] 2.16.840.1.485168.3.579 .2.1285 1967 Unknown [id number] 2.16.840.1.147775.3.579 .2.1285 1967 Unknown [id number] 2.16.840.1.051118.3.579 .2.1285 1967 Unknown [id number] 2.16.840.1.473390.3.579 .2.1285 1967 Unknown [id number] 2.16.840.1.958079.3.579 .2.1285 1967 Unknown [id number] 2.16.840.1.488166.3.579 .2.1285 1967 Unknown [id number] 2.16.840.1.942873.3.579 .2.1285 1967 Unknown [id number] 2.16.840.1.610354.3.579 .2.1285 1967 Unknown [id number] 2.16.840.1.251930.3.579 .2.1285 1967 Unknown [id number] 2.16.840.1.668248.3.579 .2.1285 1967 Unknown [id number] 2.16.840.1.771645.3.579 .2.1285 1967 Unknown [id number] 2.16.840.1.984051.3.579 .2.1285 1967 Unknown [id number] 2.16.840.1.349860.3.579 .2.1285 1967 Unknown [id number] 2.16.840.1.345363.3.579 .2.1285 1967 Unknown [id number] 2.16.840.1.780908.3.579 .2.1285 1967 Unknown [id number] 2.16.840.1.094815.3.579 .2.1285 1967 Unknown [id number] 2.16.840.1.272400.3.579 .2.1285 1967 Unknown [id number] 2.16.840.1.715815.3.579 .2.1285 1967 Unknown [id number] 2.16.840.1.130492.3.579 .2.1285 1967 Unknown [id number] 2.16.840.1.787017.3.579 .2.1285 1967 Unknown [id number] 2.16.840.1.701309.3.579 .2.1285 1967 Unknown [id number] 2.16.840.1.497401.3.579 .2.1285 1967 Unknown [id number] 2.16.840.1.240092.3.579 .2.1285 1967 Unknown [id number] 2.16.840.1.617513.3.579 .2.1285 1967 Unknown [id number] 2.16.840.1.913721.3.579 .2.1285 1967 Unknown [id number] 2.16.840.1.852849.3.579 .2.1285 1967 Unknown [id number] 2.16.840.1.394227.3.579 .2.1285 1967 Unknown [id number] 2.16.840.1.679090.3.579 .2.1285 1967 Unknown [id number] 2.16.840.1.726290.3.579 .2.1285 1967 Unknown [id number] 2.16.840.1.688510.3.579 .2.1285 1967 Unknown [id number] 2.16.840.1.443782.3.579 .2.1285 1967 Unknown [id number] 2.16.840.1.326879.3.579 .2.1285 1967 Unknown [id number] 2.16.840.1.298866.3.579 .2.1285 1967 Unknown [id number] 2.16.840.1.358297.3.579 .2.1285 1967 Unknown [id number] 2.16.840.1.227523.3.579 .2.1285 1967 Unknown [id number] 2.16.840.1.833563.3.579 .2.1285 1967 Unknown [id number] 2.16.840.1.108887.3.579 .2.1285 1967 Unknown [id number] 2.16.840.1.570020.3.579 .2.1285 1967 Unknown [id number] 2.16.840.1.118270.3.579 .2.1285 1967 Unknown [id number] 2.16.840.1.933450.3.579 .2.1285 1967 Unknown [id number] 2.16.840.1.979146.3.579 .2.1285 1967 Unknown [id number] 2.16.840.1.024949.3.579 .2.1285 1967 Unknown [id number] 2.16.840.1.326062.3.579 .2.1285 1967 Unknown [id number] 2.16.840.1.544241.3.579 .2.1285 1967 Unknown [id number] 2.16.840.1.465522.3.579 .2.1285 1967 Unknown [id number] 2.16.840.1.154540.3.579 .2.1285 1967 Unknown [id number] 2.16.840.1.959851.3.579 .2.1286 1967 Unknown [id number] 2.16.840.1.635854.3.579 .2.1286 1967 Unknown [id number] 2.16.840.1.774108.3.579 .2.1259 1967 Unknown [id number] 2.16.840.1.497091.3.579 .2.9 1967 Unknown [id number] 2.16.840.1.571070.3.579 .2.1259 1967 Unknown [id number] 2.16.840.1.593571.3.579 .2.1259 1967 Unknown [id number] 2.16.840.1.702811.3.579 .2.9 1967 Unknown [id number] 2.16.840.1.002257.3.579 .2.9 1967 Unknown [id number] 2.16.840.1.177392.3.579 .2.1259 1967 Unknown [id number] 2.16.840.1.261449.3.579 .2.196 1967 Unknown [id number] 2.16.840.1.209457.3.579 .2.196 1967 Unknown [id number] 2.16.840.1.935758.3.579 .2.196 1967 Unknown [id number] 2.16.840.1.984610.3.579 .2.196 Private Health Insurance [id number] 2.16.840.1.001328.19 Social History Date Type Detail Facility Unknown if ever smoked [employer] Other Start: 08-05-2020 End: 10-03-2022 Sex Assigned At [facility] Start: 10-03-2022 Tobacco smoking status NHIS Never smoked tobacco [facility] Start: 10-03-2022 Tobacco use and exposure Smokeless tobacco non-user [facility] Start: 06-12-2023 End: 09-20-2023 Alcohol intake Current drinker of alcohol (finding) [facility] Start: 08-05-2020 End: 10-03-2022 History of Social function [facility] Are you worried or concerned that in the next two months you may not have stable housing that you own, rent or stay in as a part of a household? No [facility] Start: 07-18-2019 Alcohol Comment occassional [facility] Start: 1965 Sex Assigned At Not on file P [facility] Medical Equipment Procedure Code Equipment Code Equipment Origin al Text Equipment Identifier Dates System Cor Stnt 3.5mm X 12mm 145cm Xience [employer] Mtlnk Tom - [id number], [id number] FDA Start: 06-11-2023 Use strip as directed by glucometer [id number] Start: 06-12-2023 Goals Date Patient Goal Desired Activity /State Personal health goal Comment on above: Formatting of this n ote might be different from the original. Evaluation of progress towards goal: home self care and family support Clinical Notes 08-22-2021 to 09-20-2023 Kathy Lopez MD - 09/20/2023 8:45 AM EDTTelephone Encounter - Maya Hubbard, [facility] [address] - 09/19/2023 9:53 AM EDTTelephone Encounter - Maya Hubbard [facility] [address] - 09/19/2023 9:53 AM EDT Note Date & Type Note Facility 09-20-2023 History of Present illness Narrative Damien Frank Date of visit: 09/20/2023 Date of : 1965 Age: 58 y.o. Patient Active Problem List Diagnosis Essential (primary) hypertension Anxiety Gastroesophageal reflux disease without esophagitis Obstructive sleep apnea syndrome Morbid obesity (CMS-HCC) Ventral hernia Chronic deep vein thrombosis (DVT) of lower extremity ([facility]) ACS (acute coronary syndrome) ([facility]) Acute coronary syndrome ([facility]) Unstable angina ([facility]) DM2 (diabetes mellitus, type 2) ([facility] Allergies Allergen Reactions Amoxicillin Other Reaction(s): Unknown [...] Arthritis Asthma DM2 (diabetes mellitus, type 2) ([facility]) 06/10/2023 DVT (deep venous thrombosis) [place] [place] chronic LLE on Eliquis Hypertension Obesity Visual impairment No data recorded No data recorded No data recorded Past Surgical History: Procedure Laterality Date APPENDECTOMY ARTHROSCOPY MENISCECTOMY KNEE & CPT 54812 Left 09/20/2021 Performed by Mason Vang Jr., DO at [facility] Cardiac catheterization N/A 06/11/2023 Performed by Andre Osborne MD at [facility]ATH [facility] CARPAL TUNNEL RELEASE Bilateral Coronary angiogram and left ventricular gram/pressure N/A 06/11/2023 Performed by Andre Osborne MD at [facility] HERNIA REPAIR x4 NECK SURGERY C6&7 [facility] 2006 SHOULDER ARTHROSCOPY Stent drug-eluting right coronary artery N/A 06/11/2023 Performed by Andre Osborne MD at [facility] Family History Problem [...] Referring Physician: Maya Mattson MD [address] [place] [address] [facility] Miscellaneous Notes Called patient to remind them to bring their most current copy of their medication list with them to their appt. Patient verbalizes understanding. documented [facility] this encounter [facility]23 Telephone encounter Note Called patient to remind them to bring their most current copy of their medication list with them to their appt. Patient verbalizes understanding. [employer] 06-22-2023 History of Present illness Narrative Damien Frank Date of visit: 06/22/2023 Date of : 1965 Age: 58 y.o. Patient Active Problem List Diagnosis Essential (primary) hypertension Anxiety Gastroesophageal reflux disease without esophagitis Obstructive sleep apnea syndrome Morbid obesity [place]) Ventral hernia Chronic deep vein thrombosis (DVT) of lower extremity ([facility] ACS (acute coronary syndrome) ([facility] Acute coronary syndrome [place] Unstable angina ([facility] DM2 (diabetes mellitus, type 2) ([facility] Allergies Allergen Reactions Amoxicillin [...] follow-up visit. Discharge earlier this month from [facility] after being admitted with unstable angina underwent [...] Arthritis Asthma DM2 (diabetes mellitus, type 2) ([facility]) 06/10/2023 DVT (deep venous thrombosis) [place] chronic LLE on Eliquis Hypertension Obesity Visual impairment No data recorded No data recorded No data recorded Past Surgical History: Procedure Laterality Date APPENDECTOMY ARTHROSCOPY MENISCECTOMY KNEE & CPT 85442 Left 09/20/2021 Performed by Mason Vang Jr., DO at [facility] Cardiac catheterization N/A 06/11/2023 Performed by Andre Osborne MD at [facility]ATH [facility] CARPAL TUNNEL RELEASE Bilateral Coronary angiogram and left ventricular gram/pressure N/A 06/11/2023 Performed by Andre Osborne MD at [facility] C[facility]ATH [facility] HERNIA REPAIR x4 NECK SURGERY C6&7 [facility] 2006 SHOULDER ARTHROSCOPY Stent drug-eluting right coronary artery N/A 06/11/2023 Performed by Andre Osborne MD at [facility] Family History Problem [...] Morbid obesity with BMI of 50.0-59.9, adult ([facility]) Previous cardiac related labs and test results [...] MD Referring Physician: Maya Mattson MD [address] [place] [address] documented in this encounter [facility] 06-21-2023 Miscellaneous Notes Unable to remind patient of appointment. Phone was not accepting calls at this time.DEEPAK Mojica documented in this encounter [facility] 06-21-2023 Telephone encounter Note Unable to remind patient of appointment. Phone was not accepting calls at this time.DEEPAK Mojica [facility] 08-22-2021 Evaluation note Encounter Date Diagnosis [...] that that is indicated in this scenario. [facility] [employer] Other Evaluation noteNo InformationNoLECOM [facility] [employer] Other Evaluation note* Diagnosis S/P right coronary artery (RCA) stent placement- Primary Essential hypertension Unspecified essential hypertension Pure hypercholesterolemia History of DVT (deep vein thrombosis) Morbid obesity with BMI of 50.0-59.9, adult (CMS-HCC) SOB (shortness of breath) Shortness of breath documented in this encounter [facility]* Diagnosis SOB (shortness of breath) Shortness of breath documented in this encounter [facility] System[facility] note* Diagnosis Acute coronary syndrome (CMS-HCC) Intermediate coronary syndrome documented in this encounter [facility]* Diagnosis Acute coronary syndrome (CMS-HCC) Intermediate coronary syndrome documented in this encounter [facility]* Diagnosis Acute coronary syndrome (CMS-HCC) Intermediate coronary syndrome documented in this encounter [facility]* Diagnosis Acute coronary syndrome (CMS-HCC) Intermediate coronary syndrome documented in this encounter [facility]* Diagnosis Acute coronary syndrome (CMS-HCC) Intermediate coronary syndrome documented in this encounter [facility]* Diagnosis Acute coronary syndrome (CMS-HCC) Intermediate coronary syndrome documented in this encounter [facility]* Diagnosis Acute coronary syndrome (CMS-HCC) Intermediate coronary syndrome documented in this encounter [facility]* Diagnosis Acute coronary syndrome (CMS-HCC) Intermediate coronary syndrome documented in this encounter [facility]* Diagnosis Acute coronary syndrome (CMS-HCC) Intermediate coronary syndrome documented in this encounter [facility]* Diagnosis Acute coronary syndrome (CMS-HCC) Intermediate coronary syndrome [facility] Diagnosis Acute coronary syndrome (CMS-HCC) Intermediate coronary syndrome [facility]* Diagnosis Acute coronary syndrome (CMS-HCC) Intermediate coronary syndrome [facility]* Diagnosis Acute coronary syndrome (CMS-HCC) Intermediate coronary syndrome [facility]* Diagnosis Acute coronary syndrome (CMS-HCC) Intermediate coronary syndrome [facility]* Diagnosis Acute coronary syndrome (CMS-HCC) Intermediate coronary syndrome [facility]* Diagnosis Acute coronary syndrome (CMS-HCC) Intermediate coronary syndrome [facility]* Diagnosis Acute coronary syndrome (CMS-HCC) Intermediate coronary syndrome [facility]* Diagnosis Acute coronary syndrome (CMS-HCC) Intermediate coronary syndrome [facility]* Diagnosis Acute coronary syndrome (CMS-HCC) Intermediate coronary syndrome [facility]* Diagnosis ACS (acute coronary syndrome) (CMS-HCC)- Primary Intermediate coronary syndrome documented [facility] encounter [facility] SystemHistory general Narrative - Reported* Type Description Date Medical History hypertension Medical History sleep apnea Medical History asthma Medical History blood clot left lower leg Surgical History C6-C7 neck fusion Surgical History hernia repair x4 Surgical History appendectomy Surgical History Bilateral CTR Surgical History right shoulder Hospitalization History appendectomy [employer] Other InstructionsNot on filedocumented in this encounter [facility] SystemInstructionsNot on filedocumented in this encounter [facility] SystemInstructionsNot on filedocumented in this encounter [facility] SystemInstructionsNot on filedocumented in this encounter [facility] SystemInstructionsNot on filedocumented in this encounter [facility] SystemInstructionsNot on filedocumented in this encounter [facility] SystemReason for referral (narrative)* Consultation (Routine) - Pending Review Specialty Diagnoses / Procedures Referred By Contyanique t Referred To Contact Cardiac Rehabilitation Diagnoses S/P right coronary artery (RCA) stent placement Procedures Ambulatory referral to Cardiac Rehab Eddie Dougherty MD [address] [place] [address] [facility] Cardiac Rehab Billing [address] [place] [address] Referral ID Status Reason Start Date Expiration Date V isits Requested Visits Authorized [id number] Pending Review 06/22/2023 06/21/2024 36 36 [facility] for visit Narrative* Consultation (Routine) - Authorized Specialty Diagnoses / Procedures Referred By Contac t Referred To Contact Cardiac Rehabilitation Diagnoses Acute coronary syndrome ([facility]) Procedures [facility] [place] Andre Osborne MD [address] [place] [address] [facility] Cardiac Rehab Billing [address] [place] [address] Referral ID Status Reason Start Date Expiration Date V isits Requested Visits Authorized [id number] Authorized 06/11/2023 06/10/2024 36 36 [facility] for visit Narrative* Consultation (Routine) - Pending Review Specialty Diagnoses / Procedures Referred By Contac t Referred To Contact Cardiac Rehabilitation Diagnoses Acute coronary syndrome (CMS-HCC) Procedures [facility] [place] Andre Osborne MD [address] [place] [address] [facility] Cardiac Rehab Billing [address] [place] [address] Referral ID Status Reason Start Date Expiration Date V isits Requested Visits Authorized [id number] Pending Review 06/11/2023 06/10/2024 36 36 [facility] Summary Purpose Family History No Family [...] section and content) DATE CREATED AUTHOR 08/01/2021 [facility] dical Specialist DATE CREATED AUTHOR AUTHOR'S ORGANIZ ATION 08/18/2021 [facility] DATE CREATED AUTHOR AUTHOR'S ORGANIZ ATION 04/18/2022 [facility] DATE CREATED AUTHOR AUTHOR'S ORGANIZ ATION 06/14/2023 [facility] DATE CREATED AUTHOR AUTHOR'S ORGANIZ ATION 11/17/2023 [facility] DATE CREATED AUTHOR AUTHOR'S ORGANIZ ATION 01/26/2024 [facility] dical Specialists [facility] DATE CREATED AUTHOR AUTHOR'S ORGANIZ ATION 02/11/2024 [facility] REASON FOR VISIT (unrecogniz ed section and content) Reason Comments Follow-up EST PT TTH s/p Cath/ stent SCHED W/ Reason Comments Follow-up 3 MONTH Care Teams (unrecognized sec tion and content) [employer] Relationship Specialty Start Date End Date Maya Mattson MD [address] [facility] [place] [address] PCP - General Family Medicine 08/15/17 [employer] Relationship Specialty Start Date End Date Maya Mattson MD [address] [facility] [place] [address] PCP - General Family Medicine 08/15/17 [employer] Relationship Specialty Start Date End Date Maya Mattson MD [address] [place] [address] PCP - General Family Medicine 08/15/17 [employer] Relationship Specialty Start Date End Date Maya Mattson MD [address] [place] [address] PCP - General Family Medicine 08/15/17 [employer] Relationship Specialty Start Date End Date Maya Mattson MD [address] [place] [address] PCP - General Family Medicine 08/15/17 [employer] Relationship Specialty Start Date End Date Maya Mattson MD [address] [place] [address] PCP - General Family Medicine 08/15/17 [employer] Relationship Specialty Start Date End Date Maya Mattson MD [address] [place] [address] PCP - General Family Medicine 08/15/17 [employer] Relationship Specialty Start Date End Date Maya Mattson MD [address] [place] [address] PCP - General Family Medicine 08/15/17 [employer] Relationship Specialty Start Date End Date Maya Mattson MD [address] [place] [address] PCP - General Family Medicine 08/15/17 [employer] Relationship Specialty Start Date End Date Maya Mattson MD [address] [place] [address] PCP - General Family Medicine 08/15/17 [employer] Relationship Specialty Start Date End Date Maya Mattson MD [address] [place] [address] PCP - General Family Medicine 08/15/17 [employer] Relationship Specialty Start Date End Date Maya Mattson MD [address] [place] [address] PCP - General Family Medicine 08/15/17 [employer] Relationship Specialty Start Date End Date Maya Mattson MD [address] [place] [address] PCP - General Family Medicine 08/15/17 [employer] Relationship Specialty Start Date End Date Maya Mattson MD [address] [place] [address] PCP - General Family Medicine 08/15/17 [employer] Relationship Specialty Start Date End Date Maya Mattson MD [address] [place] [address] PCP - General Family Medicine 08/15/17 [employer] [employer] Relationship Specialty Start Date End Date Maya Mattson MD [address] [place] [address] PCP - General Family Medicine 08/15/17 Cloth [employer] Relationship Specialty Start Date End Date Maya Mattson MD [address] [place] [address] PCP - General Family Medicine 08/15/17 Cloth [employer] Relationship Specialty Start Date End Date Maya Mattson MD [address] [place] [address] PCP - General Family Medicine 08/15/17 Cloth [employer] Relationship Specialty Start Date End Date Maya Mattson MD [address] [place] [address] PCP - General Family Medicine 08/15/17 Cloth [employer] Relationship Specialty Start Date End Date Maya Mattson MD [address] [place] [address] PCP - General Family Medicine 08/15/17 Cloth [employer] Relationship Specialty Start Date End Date Maya Mattson MD [address] [place] [address] PCP - General Family Medicine 08/15/17 Cloth [employer] Relationship Specialty Start Date End Date Maya Mattson MD [address] [place] [address] PCP - General Family Medicine 08/15/17 Cloth [employer] Relationship Specialty Start Date End Date Maya Mattson MD [address] [place] [address] PCP - General Family Medicine 08/15/17 Cloth [employer] Relationship Specialty Start Date End Date Maya Mattson MD [address] [place] [address] PCP - General Family Medicine 08/15/17 Cloth [employer] Relationship Specialty Start Date End Date Maya Mattson MD [address] [place] [address] PCP - General Family Medicine 08/15/17 FOR [...] BE BASED ON THE PRIMARY CLINICAL RECORDS. [employer] [facility]. provides no warranty or guarantee of the accuracy or completeness of information in this document.
--- NOTE | 2024-03-19 09:59 | P.CN_ITS ---
Consult Note: HPI Data of Consult Patient: known to practice within the last 3 years Consult date: 04/23/23 Requesting Physician: Florencia Tatum NP Primary Care Provider: ALLISON MATTSON Consult Narrative Reason for consult: Low back, bilateral lower extremity pain Narrative: 57yom who presents for evaluation. Worsening low back, bilateral lower extremity pain for months to years. Has engaged in >6 weeks of provider directed home exercise course, with minimal benefit. Uses tylenol and tizanidine, with some benefit. Lumbar mri reviewed, which is significant for spondylosis throughout much of lumbar spine, as well as multilevel stenosis, worst at l4-5. Prior EMG consistent with L3/4 radiculopathy. denies adverse med side effects. Recent left L3-4 L4-5 TFESI and left sij injection providing mild relief. Pain today 4-5/10 increasing to 8/10 with standing walking activity. Patient noticing increase in falls and left foot dragging. Denies loss of bowel/bladder. previously declined NS consult. At last visit we ordered a left hip xray, deferred by pt due to cost. gabapentin 300mg TID was ordered, pt went home and talked with his /family and there is an extensive family history of side effects to gabapentin including dizziness lightheadedness falls and memory issues so patient did not trial, he did not call our office to discuss. He is not working at this time due to severe pain and is trying to get disability. cc:: CC: Florencia Tatum NP Review of Systems ROS Status of ROS 10 or more systems reviewed and unremark able except as noted in history and below Musculoskeletal Reports: back pain, extremity pain and joint pain PFSH PFSH Medical History Low back pain ?M54.50 - Low back pain, unspecified (ICD-10) Diabetes ?E11.9 - Type 2 diabetes mellitus without complications (ICD-10) Sleep apnea ?G47.30 - Sleep apnea, unspecified (ICD-10) Asthma ?J45.909 - Unspecified asthma, uncomplicated (ICD-10) Surgical History S/P left knee arthroscopy ?Z98.890 - Other specified postprocedural states (ICD-10) S/P arthroscopy of shoulder ?Z98.890 - Other specified postprocedural states (ICD-10) H/O cervical spine surgery ?Z98.890 - Other specified postprocedural states (ICD-10) History of umbilical hernia repair ?Z98.890 - Other specified postprocedural states (ICD-10) ?Z87.19 - Personal history of other diseases of the digestive system (ICD-10) S/P inguinal hernia repair ?Z98.890 - Other specified postprocedural states (ICD-10) ?Z87.19 - Personal history of other diseases of the digestive system (ICD-10) S/P carpal tunnel release ?Z98.890 - Other specified postprocedural states (ICD-10) History of appendectomy ?Z90.49 - Acquired absence of other specified parts of digestive tract (ICD- 10) Meds Home Medications and Allergies Home Medications ?Medication ?Instructions ?Recorded ?Confirmed ?Type apixaban 5 mg tablet (Eliquis) 5 mg PO BID 04/23/23 01/28/24 History metformin 500 mg tablet 500 mg PO BID 04/23/23 01/28/24 History metoprolol tartrate 50 mg tablet 50 mg PO BID 04/23/23 01/28/24 History tizanidine 4 mg capsule (Zanaflex) 4 mg PO BID PRN muscle spasticity 04/23/23 01/28/24 History ascorbic acid (vitamin C) 500 mg 500 mg PO DAILY 10/11/23 01/28/24 History tablet (C-500) multivitamin 1 tab PO DAILY 10/11/23 01/28/24 History omega 6-sgt-qqh-fish oil 300 1 cap PO DAILY 10/11/23 01/28/24 History mg-1,000 mg capsule (Fish Oil) ticagrelor 60 mg tablet (Brilinta) 60 mg PO BID 10/11/23 01/28/24 History diazepam 10 mg tablet mg 01/28/24 History gabapentin 300 mg capsule 300 mg PO TID #90 caps 02/06/24 Rx tizanidine 4 mg tablet (Zanaflex) 4 mg PO BEDTIME PRN muscle 02/06/24 Rx spasticity #30 tabs Allergies Allergy/AdvReac Type Severity Reaction Status Date / Time amoxicillin [From Augmentin] Allergy Unknown Gastrointestinal Verified 01/28/24 07:56 Upset clavulanic acid Allergy Unknown Gastrointestinal Verified 01/28/24 07:56 [From Augmentin] Upset Exam Constitutional Documenting provider has reviewed patient's vital signs: yes Common normals: no apparent distress, oriented x3, healthy appearing, alert and well nourished General appearance: cooperative HENMS Common normals: normocephalic, hearing grossly normal bilaterally and moist oral mucous membranes Head and scalp: normocephalic Eye Common normals: PERRL Pupil: PERRL Neck & C-Spine Common normals: full ROM General: normal visual inspection Chest Common normals: inspection of chest normal Respiratory Common normals: normal respiratory effort, no retractions and no use of acc essory muscles Back & Pelvis Lumbar spine/lower back: ROM limited, pain with ROM and straight leg raise negative bilaterally Sacroiliac joints: SI joints normal Other: left hip pain with internal rotation altered sensation to left L3,4,5 pattern strength 4/5 in LLE 5/5 in RLE Extremity Common normals: normal to inspection and full ROM Neuro Common normals: oriented x3, CN's II-XII intact bilaterally, moves all extremities, no focal motor deficits, no sensory deficits noted and deep tendon reflexes 2+ bilaterally Sensorium/orientation: alert Gait (neuro): antalgic Motor exam: no movement abnormalities noted and strength abnormal Psych Common normals: mental status grossly normal, thought process normal, cooperative, affect normal, speech normal and activity/motor behavior normal Speech: normal speech Thought process: normal thought process Results Additional Findings Additional findings: If on a controlled substance or opioids, I have checked an [place] report on this patient and there are no aberrancies noted in the prescribing history.??If on a controlled substance or opioid a drug screen was completed and reviewed within the last year, and if there has not been a drug screen completed we ordered one today to monitor higher risk, state monitored pain medication use. As part of providing excellent, safe, comprehensive care, the following was completed at our patient's visit: 1. A medication reconciliation and review to ensure accurate knowledge of current/active medications, including asking our patients to inform us about any wgzm-[id number]-[id number] medications or herbal remedies/nutritional supplements/alternative remedies. 2. A review to specifically ensure our patients have had annual screening for screening for depression, screening for tobacco use, and screening for unhealthy alcohol use. For concerning screenings had a discussion with the patient, provided patient education, and recommended follow-up with primary care provider when appropriate. If patient noted with a risk of falling, they received education on strength, gait, and balance training to prevent future risk of falling. Assessment and Plan Assessment and Plan (1) Lumbar stenosis with neurogenic claudication: (2) Sacroiliac joint dysfunction of both sides: (3) Lumbar spondylosis: (4) Left hip pain: (5) Lumbar degenerative disc disease: Plan patient continues to have moderate to severe low back and left leg pain with numbness and tingling of right foot. patient has failed to respond to ESIs and SIJ injections, is not interested in NS evaluation although encouraged with progressive weakness and pain. start pregabalin 25mg TID for lumbar stenosis with NC, pt to call to discuss response in 2 weeks. risks vs benefits and potential side effects reviewed. continue HEP as tolerated avoid NSAIDs with blood thinners/cardiac hx defer SCS trial due to cost, obesity, no recent NS consult f/u 3 months
== END 2024-03-19 09:16 | disposition home or self-care (01) ==
LOC: PM 09:15
PROVIDERS: PCP Family Medicine; Visit Provider Nurse Practitioner
DX: M48.062 Spinal stenosis, lumbar region with neurogenic claudication (principal); M53.3 Sacrococcygeal disorders, not elsewhere classified; M47.816 Spondylosis without myelopathy or radiculopathy, lumbar region; M25.552 Pain in left hip; M51.36 Other intervertebral disc degeneration, lumbar region
CPT/HCPCS: G0463

== ENCOUNTER 2024-06-30 10:09 | Outpatient (OUT) | payer OTHER, SELFPAY ==
--- NOTE | 2024-06-30 11:01 | PM.CN ---
Consult Note: HPI Data of Consult Patient: known to practice within the last 3 years Consult date: 06/30/24 Requesting Physician: Elayne Arreola MD Primary Care Provider: ALLISON MATTSON Consult Narrative Reason for consult: low back pain Narrative: 59yom who presents for assessment. notes persistence of low back pain worsened with standing and ambulation. imaging reviewed, significant for lumbar facet arthropathy throughout low back. continues in a series of provider directed home exercises >6 weeks, without significant benefit. denies adverse med side effects. cc:: CC: Elayne Arreola MD Review of Systems ROS Status of ROS 10 or more systems reviewed and unremarkable except as noted in history and below [facility] Medical History Low back pain ?M54.50 - Low back pain, unspecified (ICD-10) Diabetes ?E11.9 - Type 2 diabetes mellitus without complications (ICD-10) Sleep apnea ?G47.30 - Sleep apnea, unspecified (ICD-10) Asthma ?J45.909 - Unspecified asthma, uncomplicated (ICD-10) Surgical History S/P left knee arthroscopy ?Z98.890 - Other specified postprocedural states (ICD-10) S/P arthroscopy of shoulder ?Z98.890 - Other specified postprocedural states (ICD-10) H/O cervical spine surgery ?Z98.890 - Other specified postprocedural states (ICD-10) History of umbilical hernia repair ?Z98.890 - Other specified postprocedural states (ICD-10) ?Z87.19 - Personal history of other diseases of the digestive system (ICD-10) S/P inguinal hernia repair ?Z98.890 - Other specified postprocedural states (ICD-10) ?Z87.19 - Personal history of other diseases of the digestive system (ICD-10) S/P carpal tunnel release ?Z98.890 - Other specified postprocedural states (ICD-10) History of appendectomy ?Z90.49 - Acquired absence of other specified parts of digestive tract (ICD-10) Meds Home Medications and Allergies Home Medications ?Medication ?Instructions ?Recorded ?Confirmed ?Type apixaban 5 mg tablet (Eliquis) 5 mg PO BID 04/23/23 01/28/24 History metformin 500 mg tablet 500 mg PO BID 04/23/23 01/28/24 History metoprolol tartrate 50 mg tablet 50 mg PO BID 04/23/23 01/28/24 History tizanidine 4 mg capsule (Zanaflex) 4 mg PO BID PRN muscle spasticity 04/23/23 01/28/24 History ascorbic acid (vitamin C) 500 mg 500 mg PO DAILY 10/11/23 01/28/24 History tablet (C-500) multivitamin 1 tab PO DAILY 10/11/23 01/28/24 History omega 0-uqn-jdk-fish oil 300 1 cap PO DAILY 10/11/23 01/28/24 History mg-1,000 mg capsule (Fish Oil) ticagrelor 60 mg tablet (Brilinta) 60 mg PO BID 10/11/23 01/28/24 History diazepam 10 mg tablet mg 01/28/24 History tizanidine 4 mg tablet (Zanaflex) 4 mg PO BEDTIME PRN muscle 02/06/24 Rx spasticity #30 tabs pregabalin 25 mg capsule (Lyrica) 25 mg PO TID 03/19/24 03/19/24 History Allergies Allergy/AdvReac Type Severity Reaction Status Date / Time amoxicillin (From Augmentin) Allergy Unknown Gastrointestinal Verified 01/28/24 07:56 Upset clavulanic acid (From Allergy Unknown Gastrointestinal Verified 01/28/24 07:56 Augmentin) Upset Exam Narrative Exam Narrative: Psych-alert and oriented x 3. Attentive and appropriate, constitutionally normal, displays normal mood and affect per situation.? There are no obvious deficits in memory, reasoning, or intellect.? Skin-no obvious rashes, bruising, erythema noted to the patient's area of pain. Extremities- extremities are warm with minimal edema and palpable pulses. Lumbar-no significant tenderness to palpation noted in the lumbar spine and paraspinal musculature.? Pain is elicited with extension, and lateral rotation of the lumbar spine. Range of motion is slightly diminished with these motions due to pain. Facet loading maneuvers are positive bilaterally and do appear to be concordant with the patient's normal complaints of pain.? Coordination remains intact.? Gait remains non-antalgic. Assessment and Plan Assessment and Plan (1) Lumbar spondylosis: Plan 59yom who presents for assessment. failed conservative measures, as noted. imaging reviewed, as noted. given symptoms and imaging, discussed that he would benefit from diagnostic bilateral l4-5, l5-s1 mbb. however, he is about to lose his disability check, so he states that he cannot afford it at this time. medications reviewed. not tolerating zanaflex or lyrica. will discontinue these and trial t#3 bid prn and zonegran 100mg bid prn. uds obtained. follow up in 6 weeks.
== END 2024-06-30 10:10 | disposition home or self-care (01) ==
LOC: PM 10:09
PROVIDERS: PCP Family Medicine; Visit Provider Anesthesiology
DX: M47.816 Spondylosis without myelopathy or radiculopathy, lumbar region (principal)
CPT/HCPCS: G0463

== ENCOUNTER 2024-08-11 11:13 | Outpatient (OUT) | payer OTHER, SELFPAY ==
--- OUTSIDE RECORDS SUMMARY | 2024-08-11 11:35 | XMS_ITS | CCD ---
Author Organization [facility] Inform ion [facility] Care Team Providers Care Event Manager Name Role Phone Cortez Varma Unavailable Ford Humphreys Admitting Unavailable Ford Humphreys Attending Unavailable Diego CASTRO Attending Unavailable Dieter Duarte Attending Unavailable KIESHA CORONEL Admitting Unavailab KIESHA Roberts Attending Unavailab FERNANDO Brooks Referring Unavailab MAYA Linda Primary Care Unavailable RAFAELA SUAREZ Consulting Unavailable KATHLEEN PATRICK Consulting Unavailable Maya Mattson MD Primary Care Provider [phone] MAYA MATTSON Attending Unavailable MAYA MATTSON Referring Unavailable MAYA MATTSON Attending Unavailable MAYA MATTSON Attending Unavailable MAYA MATTSON Attending Unavailable MAYA MATTSON Attending Unavailable DONNA OSBORNE Referring UnavailMAYA Guaman Primary Care Unavailable DONNA OSBORNE Referring Unavailabl MAYA Ramirez Primary Care Unavailable DONNA OSBORNE Referring Unavailabl MAYA Ramirez Primary Care Unavailable DONNA OSBORNE Referring Unavailabl MAYA Ramirez Primary Care Unavailable DONNA OSBORNE Referring Unavailabl e MAYA MATTSON Primary Care Unavailable DONNA OSBORNE Referring Unavailabl MAYA Ramirez Primary Care Unavailable DONNA OSBORNE R Referring Unavailabl e MAYA MATTSON Primary Care Unavailable DONNA OSBORNE Referring Unavailabl MAYA Ramirez Primary Care Unavailable [place]NA R Referring Unavailabl e MAYA MATTSON Primary Care Unavailable [facility] Referring Unavailabl e MAYA MATTSON Primary Care Unavailable KATHY LOPEZ Attending Unavailable MAYA MATTSON Referring Unavailable MAYA MATTSON Primary Care Unavailable [facility] Referring Unavailabl e MAYA MATTSON G Primary Care Unavailable [facility] Referring Unavailabl e MAYA MATTSON Primary Care Unavailable [facility] Referring Unavailabl e MAYA MATTSON Primary Care Unavailable EDDIE DOUGHERTY Attending Unavailable MAAY MATTSON Referring Unavailable MAYA MATTSON Primary Care Unavailable MAYA MATTSON Referring Unavailable MAYA MATTSON Primary Care Unavailable [facility] Referring Unavailabl e MAYA MATTSON G Primary Care Unavailable [facility] Referring Unavailabl e MAYA MATTSON Primary Care Unavailable [facility] Referring Unavailabl e MAYA MATTSON Primary Care Unavailable [facility] Referring Unavailabl e MAYA MATTSON G Primary Care Unavailable [facility] Referring Unavailabl e MAYA MATTSON Primary Care Unavailable [facility] Referring Unavailabl e MAYA MATTSON Primary Care Unavailable [facility] Referring Unavailabl e MAYA MATTSON G Primary Care Unavailable [facility] Referring Unavailabl e MAYA MATTSON Primary Care Unavailable [facility] Referring Unavailabl e MAYA MATTSON Primary Care Unavailable [facility] Referring Unavailabl e MAYA MATTSON G Primary Care Unavailable [facility] Referring Unavailabl e MAYA MATTSON G Primary Care Unavailable [facility] Referring Unavailabl e MAYA MATTSON Primary Care Unavailable [facility] Referring Unavailabl e MAYA MATTSON G Primary Care Unavailable [facility] Referring Unavailabl e MAYA MATTSON Primary Care Unavailable [facility] Referring Unavailabl e MAYA MATTSON Kassandra Primary Care Unavailable [facility] Referring Unavailabl e MAYA MATTSON G Primary Care Unavailable [facility] Referring Unavailabl e MAYA MATTSON G Primary Care Unavailable [facility] Referring Unavailabl e MAYA MATTSON G Primary Care Unavailable [facility] Referring Unavailabl MAYA Ramirez G Primary Care Unavailable [facility] Referring Unavailabl e MAYA MATTSON G Primary Care Unavailable [facility] Referring Unavailabl e MAYA MATTSON G Primary Care Unavailable [facility] Referring Unavailabl e MAYA MATTSON G Primary Care Unavailable [facility] Referring Unavailabl MAYA Ramirez Primary Care Unavailable [facility] Referring Unavailabl MAYA Ramirez G Primary Care Unavailable [facility] Referring Unavailabl e MAYA MATTSON G Primary Care Unavailable [facility] Referring Unavailabl e MAYA MATTSON Primary Care Unavailable [facility] Referring Unavailabl MAYA Ramirez G Primary Care Unavailable [facility] Referring Unavailabl e MAYA MATTSON G Primary Care Unavailable [facility] Referring Unavailabl MAYA Ramirez G Primary Care Unavailable [facility] Referring Unavailabl MAYA Ramirez G Primary Care Unavailable [facility] Referring Unavailabl e MAYA MATTSON G Primary Care Unavailable [facility] Referring Unavailabl MAYA Ramirez G Primary Care Unavailable [facility] Referring Unavailabl e MAYA MATTSON G Primary Care Unavailable [facility] Referring Unavailabl e MAYA MATTSON G Primary Care Unavailable [facility] Referring Unavailabl e MAYA MATTSON G Primary Care Unavailable MAYUR REDDY Attending Unavailable MAYA MATTSON Referring Unavailable MAYA MATTSON Primary Care Unavailable MAYUR REDDY Attending Unavailable MAYA MATTSON Referring Unavailable MAYA MATTSON Primary Care Unavailable DONNA OSBORNE Referring UnavailMAYA Guaman Primary Care Unavailable Maya Mattson MD Primary Care Provider Michele JUSTICE [employer] DEPUTY CLERK, Beryl Mazariegos Unavailable Maxwell ABRAHAM, Elayne Kendall Attending Unavailable Emma ABRAHAM, Maya Youngblood Primary Care Unavaila ble Maxwell ABRAHAM, Elayne Kendall Attending Unavailable Maya Mattson MD Primary Care Unavaila ble Maxwell ABRAHAM, Elayne Kendall Attending Unavailable Emma ABRAHAM, Maya Youngblood Primary Care Unavaila ble Allergies Allergy Classification Reported Allergen(s) Allergy Type Date of Onset Reaction(s) Facility (20 sources) Amoxicillin / Clavulanate Drug Allergy 9 Other (See Comments) [facility] Other (1 source) Amoxicillin / Clavulanate; Translations: [Augmentin] Drug Allergy [facility] Repository (6 sources) AMOXICILLIN-POT CLAVULANATE; Translations: [AMOXICILLIN-PO T CLAVULANATE] Propensity to adverse reactions to drug (disorder) 9 [facility] Repository (20 sources) Amoxicillin; Translations: [AMOXICILLIN] Drug Allergy 3 [facility] (4 sources) Clavulanate Drug Allergy 8 GI intolerance [facility] Healthcare (4 sources) ezetimibe Drug Allergy 4 Diarrhea [facility] Work Phone: Medications Current Medications Medication Drug Class(es) Dates Sig (Normalized) Sig (Original) apixaban 5 mg oral tablet (20 sources) Factor Xa Inhibitor Start: 01-18-2024 End: 05-05-2024 take 1 tablet by mouth in the morning apixaban (Eliquis) 5 MG tablet Indications: History of heart artery stent Take 1 tablet (5 mg) by mouth in the morning and 1 tablet (5 mg) before bedtime. 180 tablet 1 05/05/2024 Active take 1 tablet by patricia th in the morning, then take 1 tablet by mouth at bedtime apixaban (ELIQUIS) 5 mg tablet Take 1 tablet (5 mg total) by mouth in the morning and 1 tablet (5 mg total) before bedtime. Active ascorbic acid 100 mg/ml oral solution (7 sources) Vitamin C take 5 mL by mouth i n the morning ascorbic acid, vitamin C, (VITAMIN C) 500 mg/5 mL syrup Take 5 mL (500 mg total) by mouth in the morning. Active take 1 tablet by mouth once layla y Ascorbic Acid (vitamin C) 100 MG tablet Take 100 mg by mouth Daily Active ascorbic acid 60 mg / beta carotene 5000 unt / copper sulfate 40 mg / dl-alpha tocopheryl acetate 30 unt / sodium selenite 0.04 mg / zinc oxide 40 mg oral tablet (4 sources) Vitamin C take 1 tablet by mouth in the morning Multiple Vitamin (Multivitamin Adult) tablet Take 1 tablet by mouth in the morning. Active atorvastatin 40 mg oral tablet (20 sources) HMG-CoA Reductase Inhibitor Start: 06-12-20 End: 11-02-19 25 take 1 tablet by mouth in the morning atorvastatin (LIPITOR) 40 mg tablet Take 1 tablet (40 mg total) by mouth in the morning. 30 tablet 06/12/2023 Active Blood Glucose Monitoring Suppl (True Metrix Meter) w/Device kit (4 sources) Start: 06-12-20 Blood Glucose Monitoring Suppl (True Metrix Meter) w/Device kit USE DIRECTED to test BLOOD SUGAR THREE TIMES DAILY 06/12/2023 Active 24 hr buPROPion hydrochloride 150 mg extended release oral tablet (20 sources) Aminoketone Start: 01-24-20 End: 05-02-20 24 take 1 tablet by mouth once daily buPROPion XL (Wellbutrin XL) 150 MG 24 hr tablet Indications: Morbid obesity (CMS/HCC) TAKE 1 TABLET BY MOUTH DAILY DO NOT CRUSH, CHEW, OR SPLIT 30 tablet 04/30/2024 Active take 1 tablet by patricia th every twenty-four hours in the morning buPROPion XL (WELLBUTRIN XL) 150 mg 24 h r tablet Take 1 tablet (150 mg total) by mouth in the morning. Active carvedilol 12.5 mg oral tablet (20 sources) alpha-Adrenergic Sneha, beta-Adrenergic Sneha Start: 06-12-2023 End: 11-23-2024 take 1 tablet by mouth in the morning, then take 1 tablet by mouth at bedtime carvediloL (COREG) 12.5 mg tablet Take 1 tablet (12.5 mg total) by mouth in the morning and 1 tablet (12.5 mg total) before bedtime. 60 tablet 06/12/2023 Active clopidogrel 75 mg oral tablet (20 sources) P2Y12 Platelet Inhibitor Start: 06-20-2024 take 1 tablet by mouth in the morning clopidogreL (PLAVIX) 75 mg tablet Take 1 tablet (75 mg total) by mouth in the morning. 90 tablet 3 06/20/2024 Active Start: 06-22-2023 End: 10-05-2023 take 1 tablet by mouth in the morning clopidogreL (PLAVIX) 75 mg tablet Take 1 tablet (75 mg total) by mouth in the morning. 90 tablet 3 06/22/2023 10/05/2023 Discontinued diazePAM 10 mg oral tablet (4 sources) Benzodiazepine Start: 01-09-2024 diazePAM (Valium) 10 MG tablet TAKE 1 TABLET BY MOUTH PRIOR TO PROCEDURE 01/09/2024 Active DULoxetine 30 mg delayed release oral capsule (4 sources) Serotonin and Norepinephrine Reuptake Inhibitor Start: 02-21-2023 take 1 capsule by mouth in the morning DULoxetine (Cymbalta) [address] capsule Take 30 mg by mouth in the morning and 30 mg before bedtime. 02/21/2023 Active ezetimibe 10 mg oral tablet (20 [...] tablet (20 sources) Angiotensin Converting Enzyme Inhibitor Start: 01-18-2024 End: 11-21-2024 take 1 tablet by mouth once daily lisinopril 10 MG tablet Indications: Benign essential hypertension (CMS/HCC) Take 1 tablet (10 mg) by mouth Daily 100 tablet 1 05/05/2024 11/21/2024 Active take 1 tablet by mouth once layla y lisinopriL (PRINIVIL,ZESTRIL) 10 mg tablet Take 1 tablet (10 mg total) by mouth nightly. Active Mens Multi Vitamin & Mineral - (2 sources) take 1 tablet by mouth once daily Mens Multi Vitamin & Mineral - 1 tablet Orally once daily Active 24 hr metFORMIN hydrochloride 500 mg extended release oral tablet (20 sources) Biguanide Start: 01-24-2024 End: 01-23-2025 take 1 tablet by mouth every twenty-four hours at mealtime metFORMIN XR (Glucophage-XR) 500 MG 24 hr tablet Indications: Type 2 diabetes mellitus without complication, without long-term current use of insulin (CMS/HCC) Take 1 tablet (500 mg) by mouth in the evening. Take with meals Do not crush, chew, or split. 30 tablet 11 01/24/2024 01/23/2025 Active take 1 tablet by patricia th once daily at breakfast metFORMIN (GLUCOPHAGE) 500 mg tablet Shayne e 1 tablet (500 mg total) by mouth daily with breakfast. Active metoprolol tartrate 50 mg oral tablet (2 sources) beta-Adrenergic Sneha take 1 tablet by mouth twice daily at mealtime Metoprolol Tartrate 50 MG TAKE 1 TABLET BY MOUTH TWICE DAILY WITH MEALS Oral for 90 Active naltrexone hydrochloride 50 mg oral tablet (20 sources) Opioid Antagonist Start: 01-24-20 End: 04-23-20 take 0.5 tablet by mouth once daily naltrexone (Depade) 50 MG tablet Indications: Morbid obesity (CMS/HCC) Take 0.5 tablets (25 mg) by mouth Daily 45 tablet 01/24/2024 04/23/2024 Active take 0.5 tablet by mouth in the morning naltrexone (REVIA) 50 mg tablet Take 0.5 tablets (25 mg total) by mouth in the morning. Active nitroglycerin 0.3 mg sublingual tablet (20 sources) Nitrate Vasodilator Start: 06-12-2023 nitroglyce rin (NITROSTAT) 0.[address] 1 tablet (0.3 mg total) under the tongue every 5 (five) minutes as needed for chest pain. 100 tablet 3 06/12/2023 Active Start: 06-12-2023 take 1 tablet under the tongue every twenty-four hours as needed for pain nitroglycerin (Nitrostat) 0.[address] 0.3 mg under the tongue Daily as needed for chest pain 06/12/2023 Active pantoprazole 40 mg delayed release oral tablet (20 sources) Proton Pump Inhibitor Start: 06-13-2023 End: 03-28-2024 take 1 tablet by mouth before mealtime pantoprazole (ProtoNix) 40 MG EC tablet Indications: Gastroesophageal reflux disease without esophagitis Take 1 tablet (40 mg) by mouth in the morning. Take before meals. 90 tablet 07/09/2023 Active pregabalin 25 mg oral capsule (3 sources) Start: 03-19-2024 take 1 capsule by mouth three times daily pregabalin (LYRICA) 25 mg capsule Take 1 capsule (25 mg total) by mouth 3 (three) times a day. 03/19/2024 Active ticagrelor 90 mg oral tablet (13 sources) Start: 10-05-2023 End: 06-20-2024 take 1 tablet by mouth in the morning, then take 1 tablet by mouth at bedtime ticagrelor (BRILINTA) 90 mg tablet Take 1 tablet (90 mg total) by mouth in the morning and 1 tablet (90 mg total) before bedtime. 180 tablet 1 05/28/2024 06/20/2024 Discontinued (Alternate therapy) Start: 06-12-2023 End: 06-22-2023 take 1 tablet by mouth once ticagrelor (BRILINTA) 90 m g tablet Take 1 tablet (90 mg total) by mouth every 12 (twelve) hours. 60 tablet 0 06/12/2023 06/22/2023 Discontinued tiZANidine 4 mg oral tablet (4 sources) Central alpha-2 Adrenergic Agonist Start: 08-31-2023 take 1 tablet by mouth in the morning tiZANidine (Zanaflex) 4 MG tablet Take 4 mg by mouth in the morning and 4 mg before bedtime. 08/31/2023 Active zinc gluconate 50 mg oral tablet (7 sources) take 1 tablet by mouth in the morning zinc gluconate 50 mg tablet Take 1 tablet (50 mg total) by mouth in the morning. Active Completed/Discontinued Medications Medication Drug Class(es) Dates Sig (Normalized) Sig (Original) [id number] 200 actuat albuterol 0.09 mg/actuat metered dose [...] 6 (six) hours as needed for wheezing. Active aspirin 81 mg chewable tablet (20 [...] 1.5 mg/ml oral solution (2 sources) Uncompetitive U-pmcfro-K-aspartate Receptor Antagonist, Sigma-1 Agonist Start: 06-02-2019 [place] DM 7.5-7.5 MG/5ML 10 ml Orally every [...] Antagonist take 1 tablet by mouth every twenty-fo r hours Singulair 10 MG 1 tablet in the evening Orally Once a day for 30 day(s) prn Not-Taking Problems Active Problems Problem Classification Problem Date Documented Da te Episodic/Chronic Anxiety disorders (20 sources) Anxiety; Translations: [Anxiety disorder, unspecified] Onset: 6 06-10-2023 Chronic Coronary atherosclerosis and other heart disease (20 sources) Acute ischemic heart disease, unspecified; Translations: [Unstable angina] Onset: 3 Resolved: 4 09-19-2023 Chronic Diabetes mellitus with complications (1 source) Type 2 diabetes mellitus with other specified complication; Translations: [Type 2 diabetes mellitus with other specified complication] Onset: 3 Chronic Diabetes mellitus without complication (20 sources) Type 2 diabetes mellitus; Translations: [Type 2 diabetes mellitus without complications] Onset: 3 06-10-2023 Chronic Disorders of lipid metabolism (5 sources) Pure hypercholesterolemia, unspecified; Translations: [Mixed hyperlipidemia] Onset: 3 03-28-2024 Chronic Esophageal disorders (20 sources) Gastroesophageal reflux disease without esophagitis; Translations: [Gastro-esophageal reflux disease without esophagitis] Onset: 6 06-10-2023 Chronic Essential hypertension (20 sources) Essential hypertension; Translations: [Essential (primary) hypertension] Onset: 6 06-10-2023 Chronic Joint disorders and dislocations; trauma-related (4 sources) Derangement of left knee; Translations: [Unspecified internal derangement of left knee] Onset: 1 11-28-2022 Chronic Osteoarthritis (8 sources) Idiopathic osteoarthritis; Translations: [Primary osteoarthritis, unspecified site] Onset: 3 11-16-2022 Chronic Other liver diseases (4 sources) Steatosis of liver; Translations: [Fatty (change of) liver, not elsewhere classified] Onset: 6 11-28-2022 Chronic Other nutritional; endocrine; and metabolic disorders (20 [...] index (BMI) 50.0-59.9, adult] Onset: 3 Chronic Other nutritional; endocrine; and metabolic disorders (4 sources) Body mass index 40+ - severely obese; Translations: [Body mass index (BMI) 45.0-49.9, adult] Onset: 5 03-28-2024 Chronic Phlebitis; thrombophlebitis and thromboembolism (20 sources) Chronic deep venous thrombosis of lower extremity; Translations: [Chronic embolism and thrombosis of unspecified deep veins of unspecified lower extremity] Onset: 3 06-10-2023 Chronic Residual codes; unclassified (20 sources) Obstructive sleep apnea syndrome; Translations: [Obstructive sleep apnea (adult) (pediatric)] Onset: 5 06-10-2023 Chronic Unclassified (1 source) Acute cornary syndrome Onset: 3 Past or Other Problems Problem Classification Problem Date Documented Da te Episodic/Chronic Abdominal hernia (20 sources) Hernia of anterior abdominal wall; Translations: [Ventral hernia without obstruction or gangrene] Onset: 06-06-2015 10-03-2022 Episodic Chronic obstructive pulmonary disease and bronchiectasis (4 sources) Bronchitis; Translations: [Bronchitis, not specified as acute or chronic] Onset: 06-10-2014 11-28-2022 Episodic Coronary atherosclerosis and other heart disease (2 sources) Coronary angioplasty status; Translations: [Presence of coronary angioplasty implant and graft] Onset: 06-10-2023 Episodic Nonspecific chest pain (2 sources) Chest pain, unspecified; Translations: [Chest pain] Onset: 06-10-2023 Episodic Other connective tissue disease (4 sources) Abnormal posture; Translations: [Abnormal posture] Onset: 11-16-2022 11-16-2022 Episodic Other lower respiratory disease (1 source) Shortness of breath Onset: 11-14-2023 Episodic Other lower respiratory disease (1 source) Shortness of breath; Translations: [Shortness of breath] Onset: 06-22-2023 Episodic Other lower respiratory disease (3 sources) Dyspnea; Translations: [Shortness of breath] 06-22-2023 Episodic Phlebitis; thrombophlebitis and thromboembolism (3 sources) Acute embolism and thrombosis of unspecified deep veins of left lower extremity; Translations: [Personal history of other venous thrombosis and embolism] Onset: 08-22-2021 Resolved: 08-22-2021 Episodic Screening and history of mental health and substance abuse codes (4 sources) H/O: psychiatric disorder; Translations: [Personal history of other mental and behavioral disorders] Onset: 04-01-2021 11-28-2022 Episodic Spondylosis; intervertebral disc disorders; other back problems (16 sources) Spasm of muscle of lower back; Translations: [Muscle spasm of back] Onset: 11-13-2022 11-13-2022 Episodic Unclassified (20 sources) Onset: 10-03-2022 10-03-2022 Results Test Name Value Interpretation Reference Range Facility POCT EKGon 11-14-2023 [facility] Glucose Glucometer (BldC) [M ass/Vol]on 09-17-2023 Glucose [Mass/Vol] 103 mg/dL High 65 - 99 mg/dL [facility] Interpretation and review of laboratory results Abnormal [facility] Glucose [Mass/Vol] 103 mg/dL High 65-99 [facility] Glucose Glucometer (BldC) [M ass/Vol]on 09-05-2023 Glucose [Mass/Vol] 120 mg/dL High 65 - 99 mg/dL [facility] Interpretation and review of laboratory results Abnormal [facility] Glucose [Mass/Vol] 120 mg/dL High 65-99 [facility] Glucose Glucometer (BldC) [M ass/Vol]on 07-30-2023 Glucose [Mass/Vol] 105 mg/dL High 65 - 99 mg/dL [facility] Interpretation and review of laboratory results Abnormal [facility] Glucose [Mass/Vol] 105 mg/dL High 65-99 [facility] Glucose [Mass/Vol] 121 mg/dL High 65 - 99 mg/dL [facility] Interpretation and review of laboratory results Abnormal [facility] Glucose [Mass/Vol] 121 mg/dL High 65-99 [facility] Glucose Glucometer (BldC) [M ass/Vol]on 07-26-2023 Glucose [Mass/Vol] 132 mg/dL High 65 - 99 mg/dL [facility] Interpretation and review of laboratory results Abnormal [facility] Glucose [Mass/Vol] 132 mg/dL High 65-99 [facility] Glucose Glucometer (BldC) [M ass/Vol]on 07-25-2023 Glucose [Mass/Vol] 144 mg/dL High 65 - 99 mg/dL [facility] Glucose [Mass/Vol] 102 mg/dL High 65 - 99 mg/dL [facility] Interpretation and review of laboratory results Abnormal [facility] Glucose [Mass/Vol] 102 mg/dL High 65-99 [facility] Glucose [Mass/Vol] 144 mg/dL High 65-99 [facility] Glucose Glucometer (BldC) [M ass/Vol]on 07-23-2023 Glucose [Mass/Vol] 136 mg/dL High 65 - 99 mg/dL [facility] Interpretation and review of laboratory results Abnormal [facility] Glucose [Mass/Vol] 136 mg/dL High 65-99 [facility] Glucose Glucometer (BldC) [M ass/Vol]on 07-18-2023 Glucose [Mass/Vol] 115 mg/dL High 65 - 99 mg/dL [facility] Interpretation and review of laboratory results Abnormal [facility] Glucose [Mass/Vol] 115 mg/dL High 65-99 [facility] Glucose [Mass/Vol] 152 mg/dL High 65 - 99 mg/dL [facility] Interpretation and review of laboratory results Abnormal [facility] Glucose [Mass/Vol] 152 mg/dL High 65-99 [facility] Glucose Glucometer (BldC) [M ass/Vol]on 07-16-2023 Glucose [Mass/Vol] 118 mg/dL High 65 - 99 mg/dL [facility] Interpretation and review of laboratory results Abnormal [facility] Glucose [Mass/Vol] 118 mg/dL High 65-99 [facility] Glucose [Mass/Vol] 142 mg/dL High 65 - 99 mg/dL [facility] Interpretation and review of laboratory results Abnormal [facility] Glucose [Mass/Vol] 142 mg/dL High 65-99 [facility] Glucose Glucometer (BldC) [M ass/Vol]on 07-12-2023 Glucose [Mass/Vol] 130 mg/dL High 65 - 99 mg/dL [facility] Glucose [Mass/Vol] 107 mg/dL High 65 - 99 mg/dL [facility] Interpretation and review of laboratory results Abnormal [facility] Glucose [Mass/Vol] 107 mg/dL High 65-99 [facility] Glucose [Mass/Vol] 130 mg/dL High 65-99 [facility] Glucose Glucometer (BldC) [M ass/Vol]on 07-11-2023 Glucose [Mass/Vol] 93 mg/dL 65 - 99 mg/dL [facility] Glucose [Mass/Vol] 93 mg/dL Normal 65-99 [facility] Glucose [Mass/Vol] 180 mg/dL High 65 - 99 mg/dL [facility] Interpretation and review of laboratory results Abnormal [facility] Glucose [Mass/Vol] 180 mg/dL High 65-99 [facility] Glucose Glucometer (BldC) [M ass/Vol]on 07-09-2023 Glucose [Mass/Vol] 115 mg/dL High 65 - 99 mg/dL [facility] Interpretation and review of laboratory results Abnormal [facility] Glucose [Mass/Vol] 115 mg/dL High 65-99 [facility] Glucose [Mass/Vol] 129 mg/dL High 65 - 99 mg/dL [facility] Interpretation and review of laboratory results Abnormal [facility] Glucose [Mass/Vol] 129 mg/dL High 65-99 [facility] BNPon 06-27-2023 [facility] XR CHEST 2 VIEWSon 3 XR [...] the neruo consult for right now. [facility] Progress Note-Nurse Message left on patient's VM that he was approved for Neurology Consult and to call back if he wanted to go ahead with that visit. [facility] Workers' Comp Officeon 04-18 Workers' Comp Office [id number]# 1.00CD:127 [facility] Coding Summary.on 04-17-2022 Coding Summary. CD:[id number] G h0bWw+PGhlYWQ+ND3MIYX uS67qkZGngS4BN9gMBO9V OJGGDXVVQM1UIY1waSK9X AihK8RrjjDm MbuukVHyZF95WAl7DNN4a PxoKElbgM1bmZXlY6b3Yt PtDK34pE72KYpkMFMxGbO 3LjZpbjsgbWFy O3kiIsGqkBWsGvi+PHRhY mxlIHdpZHRoPScxMDAlJy DkoVqvKJ0yHt6jSHDvZSU vbGxhcHNlOiBj q5kqPKRsMObwBJ7smJdpP 4ZuoRC4XJGzx0p7Vn19lD I+PIIpCQO1fYkqWCuiq48 4NdSwm9bzXFW6 iCBhQQxaQKU1P72oq1Z9G DJwKRCgOVJ7oRA1lM7hwX voxdeiM1BkjSToCzJ8QUC 5jSUnuL1fqNgf hbcfmG0qWpe+W31MGV2SZ BMECT0ASjq5I3TlPjpixD I+VZ89QMLmGB04rLGryDN rk2qpuAd8JvZg CBYwDDD5eYkdVDdqv7CfE QVjI84tlZPeq2X7FWLzpZ uurKKoReAwgCF3zZ0zTCz kpxwav1uzqfan Kqnxj3xcyc92aK17H09iM LnmFZEhZYG7AIXsKIJzuP glni2qcP0pKr2+WWxte7v hz0ieqBp8UePa HCIjboEzmWgvKNP5j0TbH a78C1KbqQgcs7VlYsm5zh 20bIHnx6G8yZZ8VThfAUR ctE0uXUlsNgQ8 EXFaCbYmuG00aBUjLCksJ c8pzRsykWzhUU5dWCLmjq hsANDnoQ8zAMTwgVYwvBv mIW3xTNEjzzgf d031BuKcDVA2TMCouDZfW 0RsjU6kIfHxNGUaBFKbZ7 UcfRSpNHreD998GOsrShN 2LNIrylTcI4Sx HCBkxPvbYaU4s8K1Wi5Gq 0YphfyaMTS8BDpxZEJzHh K9FuYfJcQ8T1WeTtt3XOC pyRhyLZ3zZ1Jl LLTmcuayxkoshEC3UHIbI NLroQ27gXNyXCsuZz5xo8 T8x998FVDfMMLkeD78Cu4 udDogMTBwdCBU zC0orcmwd6tpsckfJzOlJ GZtRIk5ONy5BQSojLxkFs AbDDQ8JjW3EYY1kQDalK6 cfMctaubqkO6m Oyc+W56jsF9vNOE0HVB7i pjaAKOpwfPjSX70ID32G8 RyPjwvdGFibGU+PGRpdiB uqGpyOS1bYrZn n3dft2BxJBmnJ9JdHCPyZ UeeXee9LGQvREB8cLP4mU 4rVRNbLJlpq9V8rSC9K4U hyoMriv9wc3se MREjYPuxP30qiGFjt1F2K WKgmUB8UUHnnZpfUwAadX 93Oyc+CFRfrTykl0MeMfp pn7avh4zldSy9 RlYxEBRjirMzjCzwIPN9w 9GbSt79S38cLFxcMIEgXY YdUHYhXTTlcVarcf2aoU4 wIi8+PGNvbCB3 jCZ3vT3kXFTsRqU4QKphY 862TfCphSPaGduxj4mwe3 kgyIf3FoBeRHXejvCatZc bGGV4i9JbKp81 V22hEFfkZBIgIKNoXEMnP YRejWsgno3zsZ7qKk6+PC 7sw4piuj56pA93eLJ+PHR nVYE0mVrcGWvg AWTqjZ0oXJbdQsT4PJUyO lOikZ21nTPrMPhnTw3mvP lrjZkqXZ4xNZVnyzmxh61 9XjIse5fcAHRy eWFbDOowWAY3W56qi3F2F HViTXZpWUV3tPL7iL1wpJ lnbjogbGVmdDsgdmVydGl hZSboICwtR883 IHRvcDsnPlBhdGllbnQgT oQpGTs4N2AmGzi7RHGjfI ebLB8mcLMlWFfkUr6fsEf szVvsJY7fFPYc zmwlj297JmPgp1ehIGQos ZCnNFwoSBG9F24im9B1XS VtNINzDCS1mLK0zR0nzLw nbjogbGVmdDsg bmOlyUdaJYyaONaaY705Q HRvcDsnPkJpcnRoIERhdG K9CC40IE93bEGkh4G0oUO 5I7RfZNQqtgap kiocxMW5OIHdASThcD40B r8uhFhoGc5jGMYrHKQ3DS UpyHQsN9GhxS2rCcTkHBM hIHSkW5FncVOy UWpxG978JUehHiL1DDKpk nTnK1LdVTFzoMrvSaG8s5 T8Dd4QK6D3TN50HK75oFH vb3K6gRD7Z8Wm ALEvcxuqueugmLL7DXGjA BKfiC78Va6svFwtPn6eAJ CgXTQ3PSWcmIYvC1YlcK3 yOiAjMDAwMDAw X5KikVFiOFvqB954VDnuY pB2GRYinyJcJ4JpKGBhpE otZdN9b4Y6Kk0YCVx5QM7 3JT06nCQig1R9 yMN8T0CaCVPrmcncfxnit CK8IJQoRIOmeA23Rg5spD rgHr1zIMKoRQI6NZZclIW aD1JceU9tLcOl UBHsOPSiR4HknXMdTFthS 604LWvbUjV3HZGyhpRiJ8 BvEUPihNlhQqM5j5Q2Ax5 MXQGbJB43POF8 tWR9YI26WV84V1YcNxejv GFibGU+PHRhYmxlIHdpZH RoPScxMDAlJyBzdHlsZT0 bIi4vKGSeFKVa fNqddPOqMaHuy0hrYEDfZ MzaFD8xhSrcV3MpfIU1ZL Hik0v5Zr51W63aF8JrkIF +DBOuiLV2cZE5 eH9qWnDpZsI0NErrZ386U yIjaDPoGsnte8xqm4oiqL b2JrK8FAEatvAvqUwoPWX 2w3SgJn46M81q IHdpZHRoPSIxNSUiIHZhb Udxuo2mpE5gBg0+PGNvbC D0lZX1wD5jOkWsMeF8CMo jO772IhKolASl Tjvaq7fne1juhHx8VwZgX XWbcbDrfTbnECJ7k7CuEf 99I3RxhQcap0FqMpc6aq0 1rKVbx3Y1hML8 F0JqKQOohmnexBUfmGwcT D9bNHDqhvzsTPBniU2xXT JwF1q4IbQcJoX0CWnxZ7L etwZ4GUZxzCSq GZttBWE3P43ss6Z1FXGfW RUmZCX0pIE9cO0qxFrmbc ogbGVmdDsgdmVydGljYWw aHRsmW100GUOv qMghJUPetC4cCYOyiFXah BtwGM5pIUOcpmfyPqNNTQ SQJVRTLK6AJFPVTSF9Y3D zSqa3BHWwaBdw YH1mqWLoNRjuBf3gsRljx ApqPI9bFMWyrkxhAWIvqT 1iGQAeoRCbdRsxJR0fTCW szesls013YmVu NGI1LMYxtSWoD1ChcO6xN gMaFJLyISGhN5LmnZMuXN zoZ790UXrcXvM6MUKchxS uY2SoUUIdkJoq QyD4z8W5Ys0yWQ9lJs2iW LZ6ZX74YG50oNVtz4B4pC B1T4QoAOHajjvvadiepZZ 6ICJuSENkcF83 zQMxYSqpBn2mz8C4m786M GQzXZPkdT15Xv6bgPgjYJ GjlILLxL2qcpcwu8uytly gIzAwMDAwMDt0 LJb5YTWkvGxuDzImCBA4W rC3QWV9yODsbG5hsYrrpj quaL2xRox+NTQgWWVhcnM 8O1DrYvw8EACt jRhrTJ0uxSJaLTsiLv1sc RwerOjoPL6dHWQnoabwOE OneX4xLUPkmMXfaGlbAX4 uDIRryknra282 HfRiFYN4GFDtaCBrW8Lhs V2fFhEvOSMbHJMtJ5MpbQ KdQPbtO556IVazEvF6NAG lcdXvX1DwIQRl uMalGjJ4e8V9Kc9XCSsdQ P89IO53qDQnf7S5iVK0S2 NtBIFhufziqkwkuOX2SCD tYEGomL86mEIn NHweZv9gf4X8d852GKEyH POuwO56Dx1joGtvTIBuqX AJbC1ydtypv4mvkepoYbS tSUFiUMg5VBn0 KNBqtGzhWhOoRZT6GjS8H AM5sEVhrU4szUkixeckxA 9wOyc+PF6uebtfqfY9QH4 5SO42Q9RqHrvz dGFibGU+PHRhYmxlIHdpZ HRoPScxMDAlJyBzdHlsZT 9yEt9dFDQdYVVmbGmysLP nQhIdb2uoMAHa TRkcMD8xbZpuE9DjhSG6D VVlx1u3Sh83J89hA8MtdY A+SXSevCO4uQB5eS8lDgY dKpD9QJwjB515 KiQysXGqJulnt9rbk7jpf Am8BeXjTYLfwmMvoNjbVU E9n7XvZu91X27dWRjiKAJ oPSIyMCUiIHZh oWzhhh9dxT9tMt8+PGNvb MC3tKI3qH7iLaWeUzY3CW ceC315SuMecLHwJdgeH71 eZ6YbfUM+PHRy Qjo5WUEgfCicNU0eqQGhN LlrLw4fOND8TlAxHnQtSQ wcK4FoMSTvwtrvxuurnPE 0TSBsAHCteF33 Fg9nbPemVl4zJIHfARK7B KLoaRUqN3GlgW7cTsKlSU BpPUNrG1QluSRrGWdrH76 8SGhfRmT6CWWw gdMbA1ExMDGgzVblIfB9x 5I8Dg0EbZojfSMwTX3mKe PsHIy1L9PeWql2YKYwuWp fVX9brDMoWZeu Gl2zbTcahSnaDT0uPYKhr cgoa217EtWpd8axPEDhdD RgGOnnSBA4X51eb5X1AQW sVDPbNQZ2eWC0 aG5kfTobmprmjSIluUirn dUetCwrRJvtJJttO421IH HxuCmyJwQRNtt6B0EmVtp 7UUXtuXmfRK1m pHZfZYhvMe4moNvspZyfD M9wKBOxeenvf577VaInw5 afCQEanPCiFWibZGB6N35 qn9L3XXEeVKHw RYG4qHY1uY3ylLuaytwoc GVmdDsgdmVydGljYWwtYW edG799UMCezAtyBq1TKua 0W8PiUno1ZBTw aOkkGM0ymVXpKKehCq7in ZtiaYlhIB0cYPQfwahke6 51FjKbr8toTOXnvEZjHNh sHNH5K87ky7L6 EHZeVDGaMHG3jNQ4lX9vs GlnbjogbGVmdDsgdmVydG jrWKqdNGnqV586QPTbvUg nPlBheWVyOjwv dGQ+IB86hu56J1RgFxkgT la8MUFoWVJ6nTI0fH6iIT HfYCnlj5S5dHZ7B7OjbjU ndx2yh5qtCCRg ZTog (more content not included)... [facility] Workers' Comp Officeon 04-17 Workers' Comp Office [id number]#1 .00CD:127 [facility] Workers' Comp Office [id number]#1 .00CD:127 [facility] Workers' Comp Office [id number]#1 .00CD:127 [facility] Consenton 04-13-2022 Consent [id number]#1 .00CD:127 [facility] Progress Note-Physicianon Progress Note-Physician Patient: DIRK FRANK Age: 56 years Sex: Male : 1965 Associated Diagnoses: None Author: Ford Humphreys DO Chief Complaint 04/13/2022 10:24 EDT pt bent over to open a door and hit his head on the door, pt states he felt dizziness, pain and nausea after incident , treated at [facility] ER and CT [...] Charted Heart Rate Apical 80 bpm (APR 13 10:24) SBP H 160mmHg (APR 13:) DBP H 100mmHg (APR 13:) Constitutional: Vital signs reviewed; Dirk is well nourished, no acute distress Head: [...] Impression and Plan Diagnosis Abrasion of scalp (FRM38-IH S00.01XA, Working, Medical). Acute head injury (XWU40-KW S09.90XA, Working, Medical). Concussion (OED21-FK S06.0XAA, Working, Medical). two days post-injury continues [...] with a possible concussion. f/u TBD [facility] Comment on above: Result Comment: Elec tronically Signed By: Ford Humphreys DO.fartun\Date and Time Signed: 04/13/22 16:58 EDT Discharge Instructionson Discharge Instructions [id number]# 1.00CD:127 [facility] ED Traumaon 04-12-2022 ED Trauma [id number]# 1.00CD:127 [facility] Workers Comp Formson 022 Workers Comp Forms [id number]# 1.00CD:127 [facility] CT Head or Brain w/o Contras ton [...] MD Transcribed by: MEHNAZ Technologist: NELLIE Jacques [facility] CT Spine Cervical w/o Camilla gonzalez 04-11-2022 CT Spine Cervical w/o Contrast Exam [...] MD Transcribed by: MEHNAZ Technologist: NELLIE [facility] Capillary Glucose POCon 03-25 Glucose [Mass/Vol] 104 mg/dL High 55-99 [facility] Comment on above: Result Comment: Sisi ernestine Meter Performed By: #### 2 [id number] ####[facility] [address] [place] [address] Consent for Treatmenton 03-25 Consent for Treatment [id number]#1 .00CD:127 [facility] ED Clinical Summaryon 2021 ED Clinical Summary [address] [address] ED Clinical Summary Person Information Name: DIRK FRANK Jodi Carreon/[facility] Age: 56 Years : 1965 Sex: Male Language: Monegasque PCP: MAYA MATTSON MD Marital Status: Phone: [phone] Visit Id: Visit Reason: Dizziness; Trauma - [...] 04/11/2022 19:44:56 04/11/2022 19:44:56 04/11/2022 19:44:56 ADDRESS: [address] [place] [address] [facility] DOC NOTES: Addendum by Dieter Duarte DO on April 11, 2022 19:07:31 EDT MEDICAL INFORMATION: Prescriptions Given: Medications to Continue with No Changes Other Medications metoprolol (metoprolol 25 mg ER Tab) 1 Tablets By Mouth 2 times a day. PATIENT EDUCATION INFORMATION: Instructions: Head Injury, Adult; Abrasion, Tyae-jh-Koxr Follow up: With: Address: When: [facility]: [facility] [phone] In 3 days 04/14/2022 With: Address: When: MAYA MATTSON [address] [place], [place] [phone] Business (1) In 3 days DIAGNOSIS: Head injury; Scalp abrasion [facility] ED Note-Physicianon 04-11-20 ED Note-Physician Basic [...] ER symptoms should change or worsen. [facility] Comment on above: Result Comment: Elec tronically Signed By: Dieter Duarte DO\.fartun\Date and Time Signed: 04/11/22 19:27 EDT ED [...] at home: Medicines ? Take or apply diyo-uut-woqnbmt and prescription medicines only as told by [...] cannot use soap and water, use hand meat trimmer. ? Change your bandage as told by [...] 11/27/2008 Document Revised: 05/24/2018 Document Reviewed: 01/31/2018 [employer] Patient Education ? 2020 [employer]. Neurology Head Injury, Adult There are many [...] brain t (more content not included)... [facility] ED Patient Summaryon 022 ED Patient Summary [place] [id number] Patient Discharge Instructions Person Information Name: DIRK FRANK Age: 56 Years Arrival Date: 04/11/2022 17:11:51 Discharge Diagnosis: Head injury; Scalp abrasion Primary Care Physician: MAYA MATTSON MD Provider Information Primary Provider: Dieter Duarte DO Advanced Generation Engineer:None The exam and treatment you received in the Emergency Department were for an urgent problem and are not intended as complete care. It is important that you follow up with a doctor, nurse practitioner, or physician?s customer marketing assistant for ongoing care. If your symptoms become worse or you do not improve as expected and you are unable to reach your usual health care provider, you should return to the Emergency Department. We are available 24 hours a day. ZACИВАНH Jodi has been given the following list of patient education materials, prescriptions and follow-up instructions: Follow-up Instructions: With: Address: When: [facility]: [facility] [phone] In 3 days 04/14/2022 With: Address: When: MAYA MATTSON [address] [place], [place] [phone] Business (1) In 3 days In the event that this physician does not participate in your insurance network, please consult with your insurance company to find a nearby participating provider. Patient Education Materials: Head Injury, Adult; Abrasion, Bjxr-md-Qnwd A MESSAGE TO ALL PATIENTS REGARDING OPIOIDS PRESCRIPTION OPIOIDS: WHAT YOU NEED TO KNOW Prescription opioids can be used to help relieve ftkwspzv-im-jawhcm pain and are often prescribed following a [...] be struggling with addiction, tell your health home care physical therapist and a (more content not included)... [facility] Vaccinationson 04-11-2022 Vaccinations [id number]# 1.00CD:127 [facility] US Venous, Unilat, Lower Ext Lefton [...] by Shaun Dunlap on 08/01/2021 1038 Normal [facility] Safety Specialist MR knee LT wo conon 04-19-20 21 MR knee LT wo con [facility] Main [place] [id number] MRI Report Signed Patient: Dirk Frank MR#: [id number] : 1965 Acct:[id number] Age/Sex: 55 / M ADM Date: 04/19/21 Loc: [facility] Room: Type: [facility] Attending Dr: Cortez Hall PA-C Ordering Provider: [...] Guillermo Recio M.D.04/19/2021 5:39 PM Dictation Location: [place] [address] Transcribed By: [facility] 04/19/211738 Dictated By: Guillermo Recio II, MD 04/19/211729 Signed By: 04/19/211738 [facility] Vital Signs Date Time Vital Sign Value Performing Clinician Faci lity 03-28-2024 08:25-0400 Body height 180.3 cm Mayur Reddy MD Work Phone: [facility] 03-28-2024 08:25-0400 Body mass index (BMI) [Ratio] 49.14 kg/m2 Mayur Reddy MD Work Phone: [facility] 03-28-2024 08:25-0400 Body weight 159.76 kg Mayur Reddy MD Work Phone: [facility] 03-28-2024 08:25-0400 Diastolic blood pressure 82 mm[Hg] Mayur Reddy MD Work Phone: [facility] 03-28-2024 08:25-0400 Heart rate 65 /min Mayur Reddy MD Work Phone: [facility] 03-28-2024 08:25-0400 SaO2% (BldA) [Mass fraction] 97 % Mayur Reddy MD Work Phone: [facility] 03-28-2024 08:25-0400 Systolic blood pressure 122 mm[Hg] Mayur Reddy MD Work Phone: [facility] 11-14-2023 14:14-0400 Heart rate 63 /min Mayur Reddy MD Work Phone: [facility] 11-14-2023 13:38-0400 Body height 180.3 cm Mayur Reddy MD Work Phone: [facility] 11-14-2023 13:38-0400 Body mass index (BMI) [Ratio] 48.12 kg/m2 Mayur Reddy MD Work Phone: [facility] 11-14-2023 13:38-0400 Body weight 156.49 kg Mayur Reddy MD Work Phone: [facility] 11-14-2023 13:38-0400 Diastolic blood pressure 80 mm[Hg] Mayur Reddy MD Work Phone: [facility] 11-14-2023 13:38-0400 SaO2% (BldA) [Mass fraction] 97 % Mayur Reddy MD Work Phone: [facility] 11-14-2023 13:38-0400 Systolic blood pressure 124 mm[Hg] Mayur Reddy MD Work Phone: [facility] 09-20-2023 08:50-0400 Body height 180.3 cm Kathy Lopez MD Work Phone: [facility] 09-20-2023 08:50-0400 Body mass index (BMI) [Ratio] 47.7 kg/m2 Kathy Lopez MD Work Phone: [facility] [facility] 09-20-2023 08:50-0400 Body weight 155.13 kg Kathy Lopez MD Work Phone: [facility] 09-20-2023 08:50-0400 Diastolic blood pressure 72 mm[Hg] Kathy Lopez MD Work Phone: [facility] 09-20-2023 08:50-0400 Heart rate 63 /min Kathy Lopez MD Work Phone: [facility] 09-20-2023 08:50-0400 SaO2% (BldA) [Mass fraction] 94 % Kathy [facility] 09-20-2023 08:50-0400 Systolic blood pressure 136 mm[Hg] [facility] 06-22-2023 11:21-0500 Body height 180.3 cm Eddie Dougherty MD [facility] 06-22-2023 11:21-0500 Body mass index (BMI) [Ratio] 50.01 kg/m2 Eddie Dougherty MD [facility] 06-22-2023 11:21-0500 Body weight 162.66 kg Eddie Dougherty MD [facility] 06-22-2023 11:21-0500 Diastolic blood pressure 80 mm[Hg] Eddie Dougherty MD [facility] 06-22-2023 11:21-0500 Heart rate 55 /min Eddie Dougherty MD [facility] 06-22-2023 11:21-0500 SaO2% (BldA) [Mass fraction] 99 % Eddie Dougherty MD [facility] 06-22-2023 11:21-0500 Systolic blood pressure 126 mm[Hg] Eddie Dougherty MD Work Phone: [facility] 08-22-2021 14:45-0500 Body height 180.34 cm Cortez Varma Other [facility] Other 08-22-2021 14:45-0500 Body mass index (BMI) [Ratio] 50.9 kg/m2 Cortez Varma Other [facility] Other 08-22-2021 14:45-0500 Body temperature 98.9 [degF] Cortez Varma Other [facility] Other 08-22-2021 14:45-0500 Body weight 165.56 kg Cortez Varma Other [facility] Other 08-22-2021 14:45-0500 Diastolic blood pressure 62 mm[Hg] Cortez Carmichaelyonny Other [facility] Other 08-22-2021 14:45-0500 SaO2% (BldA) [Mass fraction] 96 % Cortez Carmichaelyonny Other [facility] Other 08-22-2021 14:45-0500 Systolic blood pressure 140 mm[Hg] Cortez Kojo Other [facility] Other Encounters Encounter Date Encounter Type Care Provider Facility Start: 06-30-2024 End: 06-30-2024 ambulatory Elayne Arreola MD Facility:[facility] Start: 06-12-2024 End: 06-20-2024 Refill Kayy Kirkpatrick RN [facility] Start: 05-27-2024 End: 05-28-2024 Telephone encounter Maya Mattson MD Work Phone: [facility] Comment on above: Med Refill Start: 05-26-2024 End: 05-27-2024 Refill Maya Mattson MD Work Phone: [facility] Comment on above: Atherosclerosis of n ative coronary artery of [place] heart without angina pectoris (CMS/HCC) Start: 04-30-2024 End: 05-05-2024 Refill Maya Mattson MD Work Phone: [facility] Comment on above: Morbid obesity (CMS/ HCC); History of heart artery stent; Benign essential hypertension (CMS/HCC); Acute coronary syndrome (CMS/HCC) Start: 03-28-2024 End: 03-28-2024 Office outpatient visit 15 minutes Mayur Reddy MD Work Phone: [facility] Comment on above: Essential (primary) hypertension (Primary Dx) Start: 03-28-2024 End: 03-28-2024 [facility] Start: 03-27-2024 End: 03-27-2024 Telephone encounter Maya Hubbard CMA [facility] Start: 03-03-2024 End: 03-03-2024 Refill Maya Mattson MD Work Phone: [facility] Comment on above: Morbid obesity (CMS/ HCC) Start: 01-28-2024 End: 01-28-2024 ambulatory Elayne Arreola MD Facility:[facility] Start: 01-24-2024 End: 01-24-2024 ambulatory MAYA MATTSON Not Available Start: 01-14-2024 End: 01-14-2024 ambulatory Elayne Arreola MD Facility:[facility] Start: 11-27-2023 End: 11-27-2023 Telephone encounter Danielle Murillo [facility] Comment on above: [employer] Start: 11-14-2023 End: 11-14-2023 Office outpatient visit 15 minutes Mayur Reddy MD Work Phone: [facility] Comment on above: SOB (shortness of br eath) (Primary Dx); Essential (primary) hypertension Start: 11-14-2023 End: 11-14-2023 [facility] Start: 11-13-2023 End: 11-13-2023 Telephone encounter Carley Winston RN [facility] Comment on above: sob and mild chest d iscomfort Start: 10-22-2023 End: 10-24-2023 ambulatory [facility] Start: 10-18-2023 End: 10-24-2023 ambulatory [facility] Start: 10-17-2023 End: 10-24-2023 [facility] Start: 10-15-2023 End: 10-24-2023 [facility] Start: 10-11-2023 End: 10-24-2023 [facility] Start: 10-10-2023 End: 10-24-2023 [facility] Start: 10-08-2023 End: 10-24-2023 [facility] Start: 10-05-2023 End: 10-09-2023 Telephone encounter Yesika Fortune RN [facility] Comment on above: Brilinta vs Plavix Start: 10-04-2023 End: 10-24-2023 [facility] Start: 10-03-2023 End: 10-24-2023 [facility] Start: 10-01-2023 End: 10-24-2023 [facility] Start: 09-27-2023 End: 09-27-2023 [facility] Start: 09-27-2023 End: 10-24-2023 [facility] Start: 09-26-2023 End: 10-24-2023 [facility] Start: 09-24-2023 End: 09-24-2023 Clinical Support Donna Osborne MD Work Phone: [facility] Start: 09-24-2023 End: 10-24-2023 [facility] Start: 09-20-2023 End: 09-20-2023 Office outpatient visit 15 minutes Kathy Lopez MD [facility] Comment on above: ACS (acute coronary syndrome) ([facility]) (Primary Dx) Start: 09-20-2023 End: 09-20-2023 ambulatory KATHY Rodriguez [facility] Start: 09-19-2023 Telephone encounter Maya Hubbard [facility] Start: 09-19-2023 End: 09-19-2023 Patient encounter procedure Donna Osborne MD Work Phone: [facility] Comment on above: Acute coronary syndr ome ([facility]) Start: 09-19-2023 End: 09-24-2023 ambulatory [facility] Start: 09-17-2023 End: 09-17-2023 Patient encounter procedure Donna Osborne MD Work Phone: [facility] Comment on above: Acute coronary syndr ome ([facility]) Start: 09-17-2023 End: 09-17-2023 ambulatory [facility] Start: 09-13-2023 End: 09-13-2023 Patient encounter procedure Donna Osborne MD Work Phone: [facility] Comment on above: Acute coronary syndr ome ([facility]) Start: 09-13-2023 End: 09-13-2023 [facility] Start: 09-12-2023 End: 09-12-2023 [facility] Start: 09-10-2023 End: 09-24-2023 [facility] Start: 09-06-2023 End: 09-06-2023 Patient encounter procedure Donna Osborne MD Work Phone: [facility] Comment on above: Acute coronary syndr ome ([facility]) Start: 09-06-2023 End: 09-06-2023 [facility] Start: 09-05-2023 End: 09-05-2023 Patient encounter procedure Donna Osborne MD Work Phone: [facility] Comment on above: Acute coronary syndr ome ([facility]) Start: 09-05-2023 End: 09-05-2023 ambulatory [facility] Start: 09-03-2023 End: 09-24-2023 [facility] Start: 08-30-2023 End: 08-30-2023 Patient encounter procedure Donna Osborne MD Work Phone: [facility] Comment on above: Acute coronary syndr ome ([facility]) Start: 08-30-2023 End: 08-30-2023 [facility] Start: 08-29-2023 End: 08-29-2023 Patient encounter procedure Donna Osborne MD Work Phone: [facility] Comment on above: Acute coronary syndr ome ([facility]) Start: 08-29-2023 End: 08-29-2023 [facility] Start: 08-27-2023 End: 09-24-2023 [facility] Start: 08-23-2023 End: 08-23-2023 Patient encounter procedure Donna Osborne MD Work Phone: [facility] Comment on above: Acute coronary syndr ome ([facility]) Start: 08-23-2023 End: 08-23-2023 ambulatory [facility] R [facility] Start: 08-22-2023 End: 08-22-2023 Patient encounter procedure Dnona Osborne MD Work Phone: [facility] Comment on above: Acute coronary syndr ome ([facility]) Start: 08-22-2023 End: 08-22-2023 ambulatory [facility] Start: 08-20-2023 End: 08-20-2023 Patient encounter procedure Donna Osborne MD Work Phone: [facility] Comment on above: Acute coronary syndr ome ([facility]) Start: 08-20-2023 End: 08-20-2023 [facility] Start: 08-16-2023 End: 08-16-2023 [facility] Start: 08-15-2023 End: 08-15-2023 Patient encounter procedure Donna Osborne MD Work Phone: [facility] Comment on above: Acute coronary syndr ome ([facility]) Start: 08-15-2023 End: 08-15-2023 [facility] Start: 08-13-2023 End: 08-13-2023 Patient encounter procedure Donna Osborne MD Work Phone: [facility] Comment on above: Acute coronary syndr ome ([facility]) Start: 08-13-2023 End: 08-13-2023 [facility] Start: 08-09-2023 End: 08-09-2023 Patient encounter procedure Donna Osborne MD Work Phone: [facility] Comment on above: Acute coronary syndr ome ([facility]) Start: 08-09-2023 End: 08-09-2023 [facility] Start: 08-08-2023 End: 08-08-2023 [facility] Start: 08-06-2023 End: 08-06-2023 Patient encounter procedure Donna Osborne MD Work Phone: [facility] Comment on above: Acute coronary syndr ome ([facility]) Start: 08-06-2023 End: 08-06-2023 ambulatory DONNA OSBORNE [facility] Start: 08-02-2023 End: 08-02-2023 Patient encounter procedure Donna Osborne MD Work Phone: [facility] Comment on above: Acute coronary syndr ome ([facility]) Start: 08-02-2023 End: 08-02-2023 [facility] Start: 08-01-2023 End: 08-01-2023 Patient encounter procedure Donna Osborne MD Work Phone: [facility] Comment on above: Acute coronary syndr ome ([facility]) Start: 08-01-2023 End: 08-01-2023 [facility] Start: 07-30-2023 End: 07-30-2023 Patient encounter procedure Donna Osborne MD Work Phone: [facility] Comment on above: Acute coronary syndr ome ([facility]) Start: 07-30-2023 End: 07-30-2023 [facility] Start: 07-26-2023 End: 07-26-2023 Patient encounter procedure Donna Osborne MD Work Phone: [facility] Comment on above: Acute coronary syndr ome ([facility]) Start: 07-26-2023 End: 07-26-2023 [facility] Start: 07-25-2023 End: 07-25-2023 Patient encounter procedure Donna Osborne MD Work Phone: [facility] Comment on above: Acute coronary syndr ome ([facility]) Start: 07-25-2023 End: 07-25-2023 [facility] Start: 07-23-2023 End: 07-23-2023 Patient encounter procedure Donna Osborne MD Work Phone: [facility] Comment on above: Acute coronary syndr ome ([facility]) Start: 07-23-2023 End: 07-23-2023 [facility] Start: 07-19-2023 End: 07-19-2023 ambulatory MAYA MATTSON Not Available Start: 07-18-2023 End: 07-18-2023 Patient encounter procedure Donna Osborne MD Work Phone: [facility] Comment on above: Acute coronary syndr ome ([facility]) Start: 07-18-2023 End: 07-26-2023 [facility] Start: 07-16-2023 End: 07-16-2023 Patient encounter procedure Donna Osborne MD Work Phone: [facility] Comment on above: Acute coronary syndr ome ([facility]) Start: 07-16-2023 End: 07-16-2023 ambulatory [facility] Start: 07-12-2023 End: 07-12-2023 Patient encounter procedure Donna Osborne MD Work Phone: [facility] Comment on above: Acute coronary syndr ome ([facility]) Start: 07-12-2023 End: 07-12-2023 [facility] Start: 07-11-2023 End: 07-11-2023 Patient encounter procedure Donna Osborne MD Work Phone: [facility] Comment on above: Acute coronary syndr ome ([facility]) Start: 07-11-2023 End: 07-11-2023 ambulatory [facility] Start: 07-09-2023 End: 07-09-2023 Patient encounter procedure Donna Osborne MD Work Phone: [facility] Comment on above: Acute coronary syndr ome ([facility]) Start: 07-09-2023 End: 07-09-2023 ambulatory DONNA OSBORNE [facility] Start: 07-06-2023 End: 07-06-2023 ambulatory BANNISTER [facility] Start: 06-28-2023 End: 06-28-2023 ambulatory MAYA MATTSON Not Available Start: 06-27-2023 Orders Only Maria Elena plummer [facility] Comment on above: SOB (shortness of br eath) Start: 06-22-2023 End: 06-22-2023 ambulatory MAYA MATTSON Not Available Start: 06-22-2023 End: 06-22-2023 ambulatory MAYA MATTSON Not Available Start: 06-22-2023 End: 06-22-2023 Office outpatient visit 15 minutes Eddie Dougherty MD Work Phone: [facility] Comment on above: S/P right coronary a rtery (RCA) stent placement (Primary Dx); Essential hypertension; Pure hypercholesterolemia; History of DVT (deep vein thrombosis); Morbid obesity with BMI of 50.0-59.9, adult ([facility]); SOB (shortness of breath) Start: 06-22-2023 End: 06-22-2023 ambulatory [facility] Start: 06-21-2023 Telephone encounter Maria Elena Nguyen [facility] Start: 06-19-2023 End: 06-25-2023 ambulatory MAYA MATTSON [facility] Start: 06-15-2023 End: 06-15-2023 ambulatory MAYA MATTSON Not Available Start: 06-10-2023 ambulatory [facility] Start: 06-05-2023 End: 06-05-2023 ambulatory MYAA MATTSON Not Available Start: 04-13-2022 ambulatory Ford Oreilly ty:[facility] Start: 04-11-2022 End: 04-11-2022 Emergency department patient visit Dieter Duarte Facility:[facility] Start: 04-11-2022 End: 04-12-2022 ambulatory Diego CASTRO Facility:[facility] Start: 09-01-2021 End: 09-01-2021 ambulatory Cortez Varma Other [employer] Other Start: 09-01-2021 Telephone encounter Cortez Vazquez rg [facility] Start: 08-22-2021 End: 08-22-2021 ambulatory Cortez Varma Other [facility] Other Start: 08-22-2021 Office outpatient ne w 45 minutes Cortez Varma [facility] Procedures Date Procedure Procedure Detail Performing Clinician Start: 11-14-2023 Ecg routine ecg w/le ast 12 lds w/i&r Mayur Reddy MD Work Phone: Start: 09-20-2023 Follow-up visit Follow-up KATHY Michael CAL Start: 09-17-2023 Gluc bld gluc mntr d ev cleared fda spec home use Donna Osborne MD Work Phone: Start: 09-05-2023 Gluc bld gluc mntr d ev cleared fda spec home use Donna Osborne MD Work Phone: Start: 07-30-2023 End: 07-30-2023 Gluc bld gluc mntr dev cleared fda spec home use Donna Osborne MD Work Phone: Start: 07-26-2023 Gluc bld gluc mntr d ev cleared fda spec home use Donna Osborne MD Work Phone: Start: 07-25-2023 Gluc bld gluc mntr d ev cleared fda spec home use Donna Osborne MD Work Phone: Start: 07-25-2023 Gluc bld gluc mntr d ev cleared fda spec home use Donna Osborne MD Work Phone: Start: 07-23-2023 Gluc bld gluc mntr d ev cleared fda spec home use Donna Osborne MD Work Phone: Start: 07-19-2023 Microalbumin [Mass/volume] in Urine by Test strip [facility] 1 Start: 07-18-2023 End: 07-18-2023 Gluc bld gluc mntr dev cleared fda spec home use Donna Osborne MD Work Phone: Start: 07-16-2023 End: 07-16-2023 Gluc bld gluc mntr dev cleared fda spec home use Donna Osborne MD Work Phone: Start: 07-12-2023 End: 07-12-2023 Gluc bld gluc mntr dev cleared fda spec home use Donna Osborne MD Work Phone: Start: 07-11-2023 End: 07-11-2023 Gluc bld gluc mntr dev cleared fda spec home use Donna Osborne MD Work Phone: Start: 07-09-2023 End: 07-09-2023 Gluc bld gluc mntr dev cleared fda spec home use Donna Osborne MD Work Phone: Start: 06-22-2023 Natriuretic peptide Tony Dougherty MD Work Phone: History of placement of stent for coronary artery disease History of heart artery stent Maya Mattson MD Work Phone: History of placement of stent for coronary artery disease S/P right coronary artery (RCA) stent placement Eddie Dougherty MD Work Phone: Plan of Treatment Date Care Activity Detail Author Start: 04-11-2032 DTaP,Tdap and Td Vac cines (8 - Td or Tdap) DTaP,Tdap and Td Vaccines (8 - Td or Tdap) [facility] Start: 06-28-2025 Glaucoma screening Diabetes: R etinopathy Screening [facility] Start: 03-28-2025 Adult BMI Screening Adult BMI Screen ing [facility] Start: 03-28-2025 Tobacco Screening Tobacco Screening [facility] Start: 01-09-2025 Screening for malign ant neoplasm of colon Colorectal Cancer Screening [facility] Comment on above: Postponed from 05/01 (Patient Refused) Start: 11-13-2024 Adult BMI Screening Adult BMI Screen ing [facility] Start: 11-13-2024 Tobacco Screening Tobacco Screening [facility] Start: 10-01-2024 Statin Use: Diabetic Statin Use: Meena betic [facility] Start: 09-19-2024 Adult BMI Screening Adult BMI Screen ing [facility] Start: 09-19-2024 Tobacco Screening Tobacco Screening [facility] Start: 07-19-2024 Urine screening for protein [facility] Start: 06-22-2024 Adult BMI Screening Adult BMI Screen ing [facility] Start: 06-22-2024 Tobacco Screening Tobacco Screening [facility] Start: 06-11-2024 Adult BMI Screening Adult BMI Screen ing [facility] Start: 04-25-2024 Hemoglobin A1c measurement Diabetes: Hemoglobin A1C [facility] Start: 03-28-2024 End: 03-28-2024 [facility] Start: 02-24-2024 Influenza vaccination P [facility] Start: 11-14-2023 End: 11-14-2023 Patient encounter procedure 11/14/2023 2:00 PM EDT Office [facility] [address] [place] [id number] Mayur Reddy MD [address] [place], [place] [id number] [facility] Start: 10-10-2023 End: 10-10-2023 Clinical Support 10/10/2023 8:00 AM EDT Clinical Support [facility] [address] [place] [address] Donna Osborne MD [address] [place], [place] [id number] [facility] Start: 10-08-2023 End: 10-08-2023 Patient encounter procedure [facility] Start: 10-04-2023 Adult BMI Follow Up Plan Adult BMI F ollow Up Plan [facility] Start: 10-04-2023 Tobacco Screening Tobacco Screening [facility] Start: 10-04-2023 End: 10-04-2023 Patient encounter procedure [facility] Start: 10-03-2023 End: 10-03-2023 Patient encounter procedure [facility] Start: 10-01-2023 End: 10-01-2023 Patient encounter procedure [facility] Start: 09-27-2023 End: 09-27-2023 Patient encounter procedure 09/27/2023 9:00 AM EDT Office Visit [facility] [address] [place] [address] Donna Osborne MD [address] [place] [address] [facility] Start: 09-26-2023 End: 09-26-2023 Patient encounter procedure [facility] Start: 09-24-2023 End: 09-24-2023 Patient encounter procedure [facility] Start: 09-20-2023 End: 09-20-2023 Patient encounter procedure [facility] Start: 09-19-2023 End: 09-19-2023 Patient encounter procedure 09/19/2023 9:00 AM EDT Office Visit [facility] [address] [place] [address] Donna Osborne MD [address] [place] [address] [facility] Start: 09-17-2023 End: 09-17-2023 Patient encounter procedure 09/17/2023 9:00 AM EDT Office Visit [facility] [address] [place] [address] Donna Osborne MD [address] [place] [address] [facility] Start: 09-13-2023 End: 09-13-2023 Patient encounter procedure 09/13/2023 9:00 AM EDT Office Visit [facility] [address] [place] [address] Dnona Osborne MD [address] [place] [address] [facility] Start: 09-12-2023 End: 09-12-2023 Patient encounter procedure 09/12/2023 9:00 AM EDT Office Visit [facility] [address] [place] [address] Donna Osborne MD [address] [place] [address] [facility] Start: 09-10-2023 End: 09-10-2023 Patient encounter procedure 09/10/2023 9:00 AM EDT Office Visit [facility] [address] [place] [address] Donna Osborne MD [employer] [place] [address] [facility] Start: 09-06-2023 End: 09-06-2023 Patient encounter procedure 09/06/2023 9:00 AM EDT Office Visit [facility] [address] [place] [address] Donna Osborne MD [address] [place] [address] [facility] Start: 09-05-2023 End: 09-05-2023 Patient encounter procedure 09/05/2023 9:00 AM EDT Office Visit [facility] [address] [place] [address] Donna Osborne MD [address] [place] [address] [facility] Start: 09-03-2023 End: 09-03-2023 Patient encounter procedure 09/03/2023 9:00 AM EDT Office Visit [facility] [address] [place] [address] Donna Osborne MD [address] [place] [address] [facility] Start: 08-30-2023 End: 08-30-2023 Patient encounter procedure 08/30/2023 9:00 AM EST Office Visit [facility] [address] [place] [address] Donna Osborne MD [address] [place] [address] [facility] Start: 08-29-2023 End: 08-29-2023 Patient encounter procedure 08/29/2023 9:00 AM EST Office Visit [facility] [address] [place] [address] Donna Osborne MD [address] [place] [address] [facility] Start: 08-27-2023 End: 08-27-2023 Patient encounter procedure 08/27/2023 9:00 AM EST Office Visit [facility] [address] [place] [address] Donna Osborne MD [address] [place] [address] [facility] Start: 08-23-2023 End: 08-23-2023 Patient encounter procedure 08/23/2023 9:00 AM EST Office Visit [facility] [address] [facility] [place] [address] Donna Osborne MD [address] [place] [address] [facility] Start: 08-22-2023 End: 08-22-2023 Patient encounter procedure 08/22/2023 9:00 AM EST Office Visit [facility] [address] [place] [address] Donna Osborne MD [address] [place] [address] [facility] Start: 08-20-2023 End: 08-20-2023 Patient encounter procedure 08/20/2023 9:00 AM EST Office Visit [facility] [address] [place] [address] Donna Osborne MD [address] [place] [address] [facility] Start: 08-16-2023 End: 08-16-2023 Patient encounter procedure 08/16/2023 9:00 AM EST Office Visit [facility] [address] [place] [address] Donna Osborne MD [address] [place] [address] [facility] Start: 08-15-2023 End: 08-15-2023 Patient encounter procedure 08/15/2023 9:00 AM EST Office Visit [facility] [address] [place] [address] Donna Osborne MD [address] [place] [address] [facility] Start: 08-13-2023 End: 08-13-2023 Patient encounter procedure 08/13/2023 9:00 AM EST Office Visit [facility] [address] [facility] [place] [address] Donna Osborne MD [address] [place] [address] [facility] Start: 08-09-2023 End: 08-09-2023 Patient encounter procedure 08/09/2023 9:00 AM EST Office Visit [facility] [address] [place] [address] Donna Osborne MD [address] [place] [address] [facility] Start: 08-08-2023 End: 08-08-2023 Patient encounter procedure 08/08/2023 9:00 AM EST Office Visit [facility] [address] [place] [address] Donna Osborne MD [address] [place] [address] [facility] Start: 08-06-2023 End: 08-06-2023 Patient encounter procedure 08/06/2023 9:00 AM EST Office Visit [facility] [address] [place] [address] Donna Osborne MD [address] [place] [address] [facility] Start: 08-02-2023 End: 08-02-2023 Patient encounter procedure 08/02/2023 9:00 AM EST Office Visit [facility] [address] [place] [address] Donna Osborne MD [address] [place] [address] [facility] Start: 08-01-2023 End: 08-01-2023 Patient encounter procedure 08/01/2023 9:00 AM EST Office Visit [facility] [address] [place] [address] Donna Osborne MD [address] [place] [address] [facility] Start: 07-30-2023 End: 07-30-2023 Patient encounter procedure 07/30/2023 9:00 AM EST Office Visit [facility] [address] [place] [address] Donna Osborne MD [address] [place] [address] [facility] Start: 07-26-2023 End: 07-26-2023 Patient encounter procedure 07/26/2023 9:00 AM EST Office Visit [facility] [address] [place] [address] Donna Osborne MD [address] [place] [address] [facility] Start: 07-25-2023 End: 07-25-2023 Patient encounter procedure 07/25/2023 9:00 AM EST Office Visit [facility] [address] [place] [address] Donna Osborne MD [address] [place] [address] [facility] Start: 07-23-2023 End: 07-23-2023 Patient encounter procedure 07/23/2023 9:00 AM EST Office Visit [facility] [address] [place] [address] Donna Osborne MD [address] [place] [address] [facility] Start: 07-19-2023 End: 07-19-2023 Patient encounter procedure 07/19/2023 9:00 AM EST Office Visit [facility] [address] [place] [address] Donna Osborne MD [address] [place] [address] [facility] Start: 07-18-2023 End: 07-18-2023 Patient encounter procedure 07/18/2023 9:00 AM EST Office Visit [facility] [address] [place] [address] Donna Osborne MD [address] [place] [address] [facility] Start: 07-16-2023 End: 07-16-2023 Patient encounter procedure 07/16/2023 9:00 AM EST Office Visit [facility] [address] [place] [address] Donna Osborne MD [address] [place] [address] [facility] Start: 07-12-2023 End: 07-12-2023 Patient encounter procedure 07/12/2023 9:00 AM EST Office Visit [facility] [address] [place] [address] Donna Osborne MD [address] [place] [address] [facility] Start: 07-11-2023 End: 07-11-2023 Patient encounter procedure 07/11/2023 9:00 AM EST Office Visit [facility] [address] [place] [address] Donna Osborne MD [address] [place] [address] [facility] Start: 06-22-2023 End: 06-22-2024 XR Chest PA and Lateral X-ray chest 2 views Imaging Routine SOB (shortness of breath) Expected: 06/22/2023, Expires: 06/22/2024 [facility] Work Phone: Comment on above: Expected: 06/22/2023 , Expires: 06/22/2024 Start: 06-22-2023 End: 06-22-2023 Patient encounter procedure 06/22/2023 11:30 AM EST Office Visit [facility] [address] [address] Eddie Dougherty MD [address] [place], [place] [id number] [facility] Start: 02-23-2023 Influenza vaccination Influenza Vacc ine [facility] Start: 2017 Administration of varicella zoster vaccine Zoster (Shingles) Vaccine (1 of 2) [facility] Start: 1985 Diabetic foot examination Diabetic F oot Exam [facility] Start: 1979 Depression Screening Depression Scre ening [facility] Start: 1967 Glaucoma screening Diabetic Op hthalmology Exam [facility] Start: 1967 Screening for malign ant neoplasm of colon [facility] Start: 1967 Urine screening for protein Urine Microalbumin [facility] End: 12-22-2023 Ambulatory referral to Cardiac Rehab Ambulatory referral to Cardiac Rehab Card Rehab Routine S/P right coronary artery (RCA) stent placement Per Treatment Plan for 36 Occurrences starting 06/22/2023 until 12/22/2023 [facility] Comment on above: Per Treatment Plan f or 36 Occurrences starting 06/22/2023 until 12/22/2023 End: 09-19-2024 Basic metabolic 2000 panel - Serum or Plasma Basic Metabolic Panel Lab Routine ACS (acute coronary syndrome) ([facility]) 1 Occurrences starting 09/20/2023 until 09/19/2024 [facility] Work Phone: Comment on above: 1 Occurrences starti ng 09/20/2023 until 09/19/2024 CARDIOPULMONARY REHABILITATION C[facility] REHABIL[facility]ATION Cardiac Services Ordered: 09/19/2023 [facility] Comment on above: Ordered: 09/19/2023 CARDIOPULMONARY REHABILITATION CARDIOPULMONARY REHABILITATION Cardiac Services Ordered: 09/24/2023 [facility] Comment on above: Ordered: 09/24/2023 CARDIOPULMONARY REHABILITATION CARDIOPULMONARY REHABILITATION Cardiac Services Ordered: 07/09/2023 [facility] Comment on above: Ordered: 07/09/2023 CARDIOPULMONARY REHABILITATION CARDIOPULMONARY REHABILITATION Cardiac Services Ordered: 07/11/2023 [facility] Comment on above: Ordered: 07/11/2023 CARDIOPULMONARY REHABILITATION CARDIOPULMONARY REHABILITATION Cardiac Services Ordered: 07/12/2023 [facility] Comment on above: Ordered: 07/12/2023 CARDIOPULMONARY REHABILITATION CARDIOPULMONARY REHABILITATION Cardiac Services Ordered: 07/16/2023 [facility] Comment on above: Ordered: 07/16/2023 CARDIOPULMONARY REHABILITATION CARDIOPULMONARY REHABILITATION Cardiac Services Ordered: 07/18/2023 [facility] Comment on above: Ordered: 07/18/2023 CARDIOPULMONARY REHABILITATION CARDIOPULMONARY REHABILITATION Cardiac Services Ordered: 07/25/2023 [facility] Comment on above: Ordered: 07/25/2023 CARDIOPULMONARY REHABILITATION CARDIOPULMONARY REHABILITATION Cardiac Services Ordered: 07/30/2023 [facility] Comment on above: Ordered: 07/30/2023 CARDIOPULMONARY REHABILITATION CARDIOPULMONARY REHABILITATION Cardiac Services Ordered: [...] CARDIOPULMONARY REHABILITATION CARDIOPULMONARY REHABILITATION Cardiac Services Ordered: 08/20/2023 [facility] Comment on above: Ordered: 08/20/2023 CARDIOPULMONARY REHABILITATION CARDIOPULMONARY REHABILITATION Cardiac Services Ordered: [...] REHABILITATION CARDIOPULMONARY REHABILITATION Cardiac Services Ordered: 09/13/2023 [facility] Comment on above: Ordered: 09/13/2023 End: 05-27-2025 CBC W Auto Differential panel - Blood CBC auto differential Lab Routine Essential (primary) hypertension 1 Occurrences starting 05/28/2024 until 05/27/2025 [employer] Work Phone: Comment on above: 1 Occurrences starti ng 05/28/2024 until 05/27/2025 End: 09-19-2024 Magnesium [Mass/volume] in Serum or Plasma Magnesium Lab Routine ACS (acute coronary syndrome) ([facility]) 1 Occurrences starting 09/20/2023 until 09/19/2024 [facility] Comment on above: 1 Occurrences starti ng 09/20/2023 until 09/19/2024 End: 06-22-2024 Natriuretic peptide B [Mass/volume] in Blood BNP Lab Routine SOB (shortness of breath) 1 Occurrences starting 06/22/2023 until 06/22/2024 [facility] Comment on above: 1 Occurrences starti ng 06/22/2023 until 06/22/2024 Immunizations Immunization Date Immunization Notes Care Provider Komal blackman 04-11-2022 tetanus toxoid, reduced diphtheria toxoid, and acellular pertussis vaccine, adsorbed Maya Mattson MD Work Phone: [facility] 07-04-2018 seasonal influenza, intradermal, preservative free Maya Mattson MD Work Phone: [facility] 07-04-2018 influenza virus vaccine, unspecified formulation Maria Elena Nguyen [facility] 04-18-2016 influenza, injectabl e, quadrivalent, preservative free Maya Mattson MD Work Phone: [facility] 05-09-2015 influenza, injectabl e, quadrivalent, preservative free Maya Mattson MD Work Phone: [facility] 07-04-2014 influenza, injectabl e, quadrivalent, preservative free Maya Mattson MD Work Phone: [facility] 05-15-2013 tetanus and diphther ia toxoids, adsorbed, preservative free, for adult use (5 Lf of tetanus toxoid and 2 Lf of diphtheria toxoid) Maya Mattson MD Work Phone: [facility] 05-15-2013 tetanus toxoid, reduced diphtheria toxoid, and acellular pertussis vaccine, adsorbed Maya Mattson MD Work Phone: [facility] 04-14-2013 seasonal influenza, intradermal, preservative free Maya Mattson MD Work Phone: [facility] 03-28-2013 tetanus toxoid, reduced diphtheria toxoid, and acellular pertussis vaccine, adsorbed Maya Mattson MD Work Phone: [facility] 03-25-2013 influenza, seasonal, injectable, preservative free Maya Mattson MD Work Phone: [facility] 03-25-2013 tetanus and diphther ia toxoids, adsorbed, preservative free, for adult use (5 Lf of tetanus toxoid and 2 Lf of diphtheria toxoid) Maya Mattson MD Work Phone: [facility] 03-25-2013 tetanus toxoid, reduced diphtheria toxoid, and acellular pertussis vaccine, adsorbed Maya Mattson MD Work Phone: [facility] 04-14-2012 tetanus toxoid, reduced diphtheria toxoid, and acellular pertussis vaccine, adsorbed Maya Mattson MD Work Phone: [facility] Payers Date Payer Category Payer [facility] Care O (unspecified) [facility] [id number] 2023 Private Health Insurance NAHOMY GOMEZ [id number] 315 2023 Unknown [id number] 2023 Unknown [id number] 1.13.42 [id number] 2022 Unknown [id number] 2022 Worker's Compensation [id number] Worker's Compensation WORKER'S C OMPENSATION WORKER'S [id number] ONLY [id number] 2019-Present [id number] [id number] [id number] 1967 Unknown [id number] 2.16.840.1.907734.3.57 9.2.727 1967 Unknown [id number] 2.16.840.1.999959.3.57 9.2.727 1967 Unknown [id number] 2.16.840.1.998036.3.57 9.2.1286 1967 Unknown [id number] 2.16.840.1.833149.3.57 9.2.1259 1967 Unknown [id number] 2.16.840.1.962975.3.57 9.2.1259 1967 Unknown [id number] 2.16.840.1.094551.3.57 9.2.1259 1967 Unknown [id number] 2.16.840.1.211786.3.57 9.2.1259 1967 Unknown [id number] 2.16.840.1.012419.3.57 9.2.1259 1967 Unknown [id number] 2.16.840.1.965534.3.57 9.2.1259 1967 Unknown [id number] 2.16.840.1.149900.3.57 9.2.1259 1967 Unknown [id number] 2.16.840.1.574887.3.57 9.2.1286 1967 Unknown [id number] 2.16.840.1.223670.3.57 9.2.128 1967 Unknown [id number] 2.16.840.1.913867.3.57 9.2.1285 1967 Unknown [id number] 2.16.840.1.423243.3.57 9.2.1285 1967 Unknown [id number] 2.16.840.1.638631.3.57 9.2.128 1967 Unknown [id number] 2.16.840.1.209175.3.57 9.2.128 1967 Unknown [id number] 2.16.840.1.223215.3.57 9.2.1285 1967 Unknown [id number] 2.16.840.1.576893.3.57 9.2.1285 1967 Unknown [id number] 2.16.840.1.998508.3.57 9.2.1285 1967 Unknown [id number] 2.16.840.1.510461.3.57 9.2.1285 1967 Unknown [id number] 2.16.840.1.553846.3.57 9.2.1285 1967 Unknown [id number] 2.16.840.1.270814.3.57 9.2.1285 1967 Unknown [id number] 2.16.840.1.034497.3.57 9.2.1285 1967 Unknown [id number] 2.16.840.1.183560.3.57 9.2.128 1967 Unknown [id number] 2.16.840.1.444641.3.57 9.2.1285 1967 Unknown [id number] 2.16.840.1.834866.3.57 9.2.1285 1967 Unknown [id number] 2.16.840.1.734394.3.57 9.2.128 1967 Unknown [id number] 2.16.840.1.696372.3.57 9.2.1285 1967 Unknown [id number] 2.16.840.1.915085.3.57 9.2.1285 1967 Unknown [id number] 2.16.840.1.753839.3.57 9.2.1285 1967 Unknown [id number] 2.16.840.1.593937.3.57 9.2.1285 1967 Unknown [id number] 2.16.840.1.150994.3.57 9.2.1285 1967 Unknown [id number] 2.16.840.1.368334.3.57 9.2.1285 1967 Unknown [id number] 2.16.840.1.384484.3.57 9.2.1285 1967 Unknown [id number] 2.16.840.1.205117.3.57 9.2.1285 1967 Unknown [id number] 2.16.840.1.244413.3.57 9.2.1285 1967 Unknown [id number] 2.16.840.1.789739.3.57 9.2.1285 1967 Unknown [id number] 2.16.840.1.613041.3.57 9.2.1285 1967 Unknown [id number] 2.16.840.1.994633.3.57 9.2.1285 1967 Unknown [id number] 2.16.840.1.242870.3.57 9.2.1285 1967 Unknown [id number] 2.16.840.1.243255.3.57 9.2.1285 1967 Unknown [id number] 2.16.840.1.837777.3.57 9.2.1285 1967 Unknown [id number] 2.16.840.1.890474.3.57 9.2.128 1967 Unknown [id number] 2.16.840.1.044512.3.57 9.2.1285 1967 Unknown [id number] 2.16.840.1.607834.3.57 9.2.1285 1967 Unknown [id number] 2.16.840.1.439788.3.57 9.2.1285 1967 Unknown [id number] 2.16.840.1.392444.3.57 9.2.1285 1967 Unknown [id number] 2.16.840.1.984633.3.57 9.2.1285 1967 Unknown [id number] 2.16.840.1.593023.3.57 9.2.1285 1967 Unknown [id number] 2.16.840.1.984348.3.57 9.2.1285 1967 Unknown [id number] 2.16.840.1.546487.3.57 9.2.1285 1967 Unknown [id number] 2.16.840.1.486847.3.57 9.2.1285 1967 Unknown [id number] 2.16.840.1.990370.3.57 9.2.1285 1967 Unknown [id number] 2.16.840.1.974062.3.57 9.2.1285 1967 Unknown [id number] 2.16.840.1.680469.3.57 9.2.1285 1967 Unknown [id number] 2.16.840.1.095998.3.57 9.2.1285 1967 Unknown [id number] 2.16.840.1.118651.3.57 9.2.1285 1967 Unknown [id number] 2.16.840.1.315668.3.57 9.2.1285 1967 Unknown [id number] 2.16.840.1.140477.3.57 9.2.1286 1967 Unknown [id number] 2.16.840.1.763463.3.57 9.2.128 1967 Unknown [id number] 2.16.840.1.903302.3.57 9.2.1286 1967 Unknown [id number] 2.16.840.1.521321.3.57 9.2.128 1967 Unknown [id number] 2.16.840.1.927413.3.57 9.2.1286 1967 Unknown [id number] 2.16.840.1.093690.3.57 9.2.1285 1967 Unknown [id number] 2.16.840.1.134890.3.57 9.2.1285 1967 Unknown [id number] 2.16.840.1.624642.3.57 9.2.1285 1967 Unknown [id number] 2.16.840.1.744955.3.57 9.2.1285 1967 Unknown [id number] 2.16.840.1.364456.3.57 9.2.1285 1967 Unknown [id number] 2.16.840.1.508749.3.57 9.2.1285 1967 Unknown [id number] 2.16.840.1.909178.3.57 9.2.1285 1967 Unknown [id number] 2.16.840.1.928195.3.57 9.2.1286 1967 Unknown [id number] 2.16.840.1.074398.3.57 9.2.1285 1967 Unknown [id number] 2.16.840.1.432695.3.57 9.2.1285 1967 Unknown [id number] 2.16.840.1.945587.3.57 9.2.196 1967 Unknown [id number] 2.16.840.1.310350.3.57 9.2.196 1967 Unknown [id number] 2.16.840.1.845844.3.57 9.2.196 Private Health Insurance [id number] 2.16.840.1.126876.19 Social History Date Type Detail Facility Unknown if ever smoked [facility] Other Start: 08-05-2020 End: 06-22-2023 Sex Assigned At [facility] [employer] [facility] Start: 10-03-2022 End: 11-28-2022 Tobacco smoking status NHIS Never smoked tobacco [facility] Start: 10-03-2022 End: 11-28-2022 Tobacco use and exposure Smokeless tobacco non-user [facility] Start: 06-22-2023 End: 11-14-2023 Alcohol intake Current drinker of alcohol (finding) [facility] Start: 08-05-2020 End: 06-22-2023 History of Social function [facility] Are you worried or concerned that in the next two months you may not have stable housing that you own, rent or stay in as a part of a household? No [facility] Start: 07-18-[address] [facility] Start: 1965 Sex Assigned At Not on file P [facility] Start: 01-28-2015 Sex Male (finding) [facility] Medical Equipment Procedure Code Equipment Code Equipment Origin al Text Equipment Identifier Dates System Cor Stnt 3.5mm X 12mm 145cm [employer] [facility] Irvin - [id number], [id number] [facility] Start: 06-11-2023 [id number] Start: 06-12-2023 Goals Date Patient Goal Desired Activity /State Personal health goal Comment on above: Formatting of this n ote might be different from the original. Evaluation of progress towards goal: home self care and family support Clinical Notes 08-22-2021 to 06-12-2024 Telephone Encounter - Kayy Kirkpatrick RN - 06/12/2024 3:43 PM ESTTelephone Encounter - Manuel Monroe DO - 06/12/2024 3:43 PM ESTTelephone Encounter - Kayy Kirkpatrick RN - 06/12/2024 3:43 PM EST Note Date & Type Note Facility 06-12-2024 Miscellaneous Notes Received p/c from pt. Had Cath and stents 06/11/23. Remembers being told to take brilinta for a year. Now the year is over. Wants to know if should remain on Brilinta. Expense isn't an issue. Pt is on Eliquis for history of DVT. Not taking ASA as of now. Last saw LLD 03/28/24 ( off) Will send to covering Ideally should be seen in the office to discuss further Thank you HM Pt is wondering whether needs to stay on Brilinta. Had Cath and stents 06/11/23. Remembers being told to take brilinta for a year. Now the year is over. Wants to know if should remain on Brilinta. Expense isn't an issue. Pt is on Eliquis for history of DVT. Not taking ASA as of now. Last saw LLD 03/28/24 May discontinue Brilinta but should start Plavix 75 mg once daily. This will be the antiplatelet that he continues on with his history of stent to the RCA. His aspirin was discontinued previously as he is also on anticoagulant Eliquis Response called to pt documented in this encounter [facility] [employer] 06-12-2024 Telephone encounter Note Received p/c from pt. Had Cath and stents 06/11/23. Remembers being told to take brilinta for a year. Now the year is over. Wants to know if should remain on Brilinta. Expense isn't an issue. Pt is on Eliquis for history of DVT. Not taking ASA as of now. Last saw LLD 03/28/24 ( off) Will send to covering [facility] [address] 06-12-2024 Telephone encounter Note Ideally should be seen in the office to discuss further Thank you [facility] [address] Work Phone: 06-12-2024 Telephone encounter Note Pt is wondering whether needs to stay on Brilinta. Had Cath and stents 06/11/23. Remembers being told to take brilinta for a year. Now the year is over. Wants to know if should remain on Brilinta. Expense isn't an issue. Pt is on Eliquis for history of DVT. Not taking ASA as of now. Last saw LLD 03/28/24 [facility] [address] 06-12-2024 Telephone encounter Note May discontinue Brilinta but should start Plavix 75 mg once daily. This will be the antiplatelet that he continues on with his history of stent to the RCA. His aspirin was discontinued previously as he is also on anticoagulant Eliquis [facility] [address] 06-12-2024 Telephone encounter Note Response called to pt [facility] [address] 05-27-2024 Telephone encounter Note Pt called back and was notified of suggestion [facility] 05-27-2024 Miscellaneous Notes Pt called back and was notified of suggestion He should check with cardiology on refilling the brilinta. documented in this encounter [facility] 05-27-2024 Telephone encounter Note He should check with cardiology on refilling the brilinta. [facility] 05-27-2024 Telephone encounter Note Refills sent. [facility] 05-27-2024 Miscellaneous Notes Refills sent. REFILL ALSO NEEDED FOR - BRILINTA 90 [facility] documented in this encounter [facility] 05-26-2024 Telephone encounter Note REFILL ALSO NEEDED FOR - BRILINTA [facility] [place] 2024 Telephone encounter Note We received a notification from the pharmacy asking if pt is taking his Lisinopril and Atorvastatin. Patient states he is. [facility] 2024 Miscellaneous Notes We received a notification from the pharmacy asking if pt is taking his Lisinopril and Atorvastatin. Patient states he is. Approving, but needs appt for additional refills. documented in this encounter [facility] 04-30-2024 Telephone encounter Note Approving, but needs appt for additional refills. [facility] 03-28-2024 History of Present illness Narrative Dirk Fermin Zac Date of visit: 03/28/2024 Date of : 1965 Age: 58 y.o. Patient Active Problem List Diagnosis Essential (primary) hypertension Anxiety Gastroesophageal reflux disease without esophagitis Obstructive sleep apnea syndrome BMI 45.0-49.9, adult ([facility]) Ventral hernia Chronic deep vein thrombosis (DVT) of lower extremity ([facility]) DM2 (diabetes mellitus, type 2) ([facility]) ASCVD (arteriosclerotic cardiovascular disease) Mixed hyperlipidemia Allergies Allergen Reactions Amoxicillin Other Reaction(s): Unknown [...] 1 tablet (5 mg total) before bedtime. ascorbic acid, vitamin C, (VITAMIN C) 500 mg/5 mL syrup Take 5 mL (500 mg total) by mouth in the morning. atorvastatin (LIPITOR) 40 mg tablet Take 1 [...] mg total) before bedtime. 60 tablet 0 ezetimibe (ZETIA) 10 mg tablet Take 1 [...] 1 tablet (500 mg total) by mouth daily with breakfast. naltrexone (REVIA) 50 mg tablet Take 0.5 tablets (25 mg total) by mouth in the morning. nitroglycerin (NITROSTAT) 0.[address] 1 tablet (0.3 mg total) under the tongue every 5 (five) minutes as needed for chest pain. 100 tablet 3 pregabalin (LYRICA) 25 mg capsule Take 1 capsule (25 mg total) by mouth 3 (three) times a day. ticagrelor (BRILINTA) 90 mg tablet Take 1 tablet (90 mg total) by mouth in the morning and 1 tablet (90 mg total) before bedtime. 180 tablet 2 zinc gluconate 50 mg tablet Take 1 tablet (50 mg total) by mouth in the morning. No current facility-administered medications for this visit. Chief Complaint Patient presents with Follow-up EST PT F/U 6 MS LABS DONE SCHED W/ PT L/S TMP History of Present Illness I last saw this 58-year-old 10/2023 He is status post drug-eluting stent in May of 2023 He has had 1 episode of chest pain. It was not similar to his previous angina. He did not take a sublingual nitroglycerin. It self resolved in less than 2 minutes. He denies syncope, palpitations or edema His activity has been limited by back pain He is . 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 Systolic function is normal with an ejection fraction of 55-60%. See wall score diagram for wall motion abnormalities. Aortic Valve: The aortic valve is trileaflet. There is no regurgitation or stenosis. Mitral Valve: The leaflets are not thickened. There is no regurgitation or stenosis. STRESS: No results found. HOLTER: No results found. CARDIAC CATH: Cardiac catheterization Result Date: 06/11/2023 Conclusion: 1. Significant obstructive coronary disease with high-grade distal right coronary artery stenosis successfully stented with drug-eluting stent. 2. Otherwise nonobstructive coronary artery disease. 3. Normal left ventricular end-diastolic pressure. Recommendations: 1. Post PCI care. 2. Risk factor modification Percutaneous coronary intervention Result Date: 06/11/2023 Conclusion: 1. Significant obstructive coronary disease with high-grade distal right coronary artery stenosis successfully stented with drug-eluting stent. 2. Otherwise nonobstructive coronary artery disease. 3. Normal left ventricular end-diastolic pressure. Recommendations: 1. Post PCI care. 2. Risk factor modification CAROTID: No results found. CXR: No results found. Lipid Profile: Lab Results Component Value Date Cholesterol 129 (L) 06/10/2023 Cholesterol:HDL Ratio 4.0 06/10/2023 HDL Cholesterol 32 (L) 06/10/2023 Triglycerides 89 06/10/2023 LDL (calc) 79 06/10/2023 No data recorded No data recorded No data recorded Past Medical History: Diagnosis Date Arthritis Asthma DM2 (diabetes mellitus, type 2) ([facility]) 06/10/2023 DVT (deep venous thrombosis) [facility] chronic LLE on Eliquis Hypertension Obesity Visual impairment Past Surgical History: Procedure Laterality Date APPENDECTOMY ARTHROSCOPY MENISCECTOMY KNEE & CPT 26144 Left 09/20/2021 Performed by Mason Vagn Jr., DO at [facility] Cardiac catheterization N/A 06/11/2023 Performed by Donna Osborne MD at [facility] CARDIAC CATH LABS CARPAL TUNNEL RELEASE Bilateral Coronary angiogram and left ventricular gram/pressure N/A 06/11/2023 Performed by Donna Osborne MD at [facility] CARDIAC CATH LABS HERNIA REPAIR x4 NECK SURGERY C6&7 [facility] 2006 SHOULDER ARTHROSCOPY Stent drug-eluting right coronary artery N/A 06/11/2023 Performed by Donna Osborne MD at [facility] CARDIAC CATH LABS Family History Problem Relation [...] Never Smokeless tobacco: Never Vaping Use Vaping status: Never Used Substance and Sexual Activity Alcohol use: Yes Comment: occassional Drug use: Never Sexual activity: Defer Partners: Female Other Topics Concern Caffeine Use No Social History Narrative Not on file Social Determinants of Health Financial Resource Strain: Not on file Food Insecurity: No Food Insecurity (03/28/2024) Hunger Screening Food Insecurity - Worry: Never True Food Insecurity - Inability: Never True Transportation Needs: Not on file Physical Activity: Not on file Stress: Not on file Social Connections: Not on file Interpersonal Safety: Not on file Housing Instability: Low Risk (06/12/2023) Housing Instability Housing Instability: No Review of Systems Review of Systems Constitutional: Negative. HENT: Negative. Eyes: Negative. Cardiovascular: Negative. Vascular: Negative. Respiratory: Negative. Endocrine: Negative. Hematologic/Lymphatic: Bruises/bleeds easily. Skin: Negative. Musculoskeletal: Positive for back pain. Gastrointestinal: Positive for diarrhea. Genitourinary: Negative. Neurological: Positive for numbness. Psychiatric/Behavioral: Negative. Allergic/Immunologic: Negative. CARDIOVASCULAR: Please review HPI. Physical Examination General appearance: Alert, oriented and cooperative. In no acute distress. Pleasant Skin: Warm and dry to touch. Respiratory: Clear to auscultation bilaterally, no use of accessory muscles. Cardiovascular: RRR with normal S1 and S2 with no murmurs. Musculoskeletal: No peripheral edema. VITAL SIGNS: BP 122/82 (BP Site: Left Arm, BP Postition: Sitting) Pulse 65 Ht 180.3 cm (5' 10.98 ) Wt (!) 159.8 kg (352 lb 3.2 oz) SpO2 97% BMI 49.14 kg/m Orders Placed or Reconciled This Encounter Medications pregabalin (LYRICA) 25 mg capsule Sig: Take 1 capsule (25 mg total) by mouth 3 (three) times a day. zinc gluconate 50 mg tablet Sig: Take 1 tablet (50 mg total) by mouth in the morning. ascorbic acid, vitamin C, (VITAMIN C) 500 mg/5 mL syrup Sig: Take 5 mL (500 mg total) by mouth in the morning. Medications Discontinued During This Encounter Medication Reason pantoprazole (PROTONIX) 40 mg EC tablet IMPRESSIONS/PLAN 1. Essential (primary) hypertension 1. ASCVD without angina --05/2023 drug-eluting stent to the RCA 2. Primary hypertension, controlled 3. Hyperlipidemia --atorvastatin --Zetia --labs 05/2023 4. Type 2 diabetes --hemoglobin A1c 6.7 01/24/2024 5. Obstructive sleep apnea 6. Chronic deep vein thrombosis --Eliquis 7. BMI 49 --patient continues to work on diet and exercise -he has discussed weight loss medicines with Dr Mattson; apparently his insurance will not cover these meds TODAYS ORDERS No orders of the defined types were placed in this encounter. FOLLOW UP Return in about 6 months (around 09/26/2024). PCP: Maya Mattson MD Referring Physician: Maya Mattson MD [address] [place] [address] documented in this encounter [facility] 03-27-2024 Miscellaneous Notes Called patient to remind them to bring their most current copy of their medication list with them to their appt. Patient verbalizes understanding. documented in this encounter [facility] 03-27-2024 Telephone encounter Note Called patient to remind them to bring their most current copy of their medication list with them to their appt. Patient verbalizes understanding. [facility] 03-03-2024 Telephone encounter Note Refills sent. [facility] 03-03-2024 Miscellaneous Notes Refills sent. documented in this encounter [facility] 11-27-2023 Miscellaneous Notes EMPANELMENT OUTREACH Dirk Frank has been contacted in effort to establish and/or re-establish care as a new patient with [facility]: Yes Outreach Date: November 27, 2023 Outreach Reason: Attribution Outreach Method: Telephone Outreach Attempt: First Attempt Outreach Outcome: Contacted Patient New Patient Appointment: Declined Attributed Provider: Nara Ugalde CNP Additional Comments: Patient states that he has a primary care provider and will reach out to his insurance carrier to have them update. documented in this encounter [facility] 11-27-2023 Telephone encounter Note EMPANELMENT OUTREACH Dirk Frank has been contacted in effort to establish and/or re-establish care as a new patient with [facility]: Yes Outreach Date: November 27, 2023 Outreach Reason: Attribution Outreach Method: Telephone Outreach Attempt: First Attempt Outreach Outcome: Contacted Patient New Patient Appointment: Declined Attributed Provider: Nara Ugalde CNP Additional Comments: Patient states that he has a primary care provider and will reach out to his insurance carrier to have them update. [facility] 11-14-2023 History of Present illness Narrative Dirk Frank Date of visit: 11/14/2023 Date of : 1965 Age: 58 y.o. Patient Active Problem List Diagnosis Essential (primary) hypertension Anxiety Gastroesophageal reflux disease without esophagitis Obstructive sleep apnea syndrome Morbid obesity ([facility]) Ventral hernia Chronic deep vein thrombosis (DVT) of lower extremity ([facility]) ACS (acute coronary syndrome) ([facility]) Acute coronary syndrome ([facility]) Unstable angina ([facility]) DM2 (diabetes mellitus, type 2) ([facility]) Allergies Allergen Reactions Amoxicillin Other Reaction(s): Unknown [...] 1 tablet (5 mg total) before bedtime. atorvastatin (LIPITOR) 40 mg tablet Take 1 [...] mg total) before bedtime. 60 tablet 0 ezetimibe (ZETIA) 10 mg tablet Take 1 [...] 1 tablet (500 mg total) by mouth daily with breakfast. naltrexone (REVIA) 50 mg tablet Take 0.5 [...] 1 tablet (90 mg total) by mouth in the morning and 1 tablet (90 mg total) before bedtime. 180 tablet 2 No current facility-administered medications for this visit. Chief Complaint Patient presents with Follow-up EARLY FU CHEST PAIN Chest Pain Shortness of Breath History of Present Illness I had the opportunity to meet this 58-year-old today. He was last in the office 09/20/2023 He is status post drug-eluting stent in May of 2023 Has become more active, working outside and pushing a wheelbarrow. With that activity he had mildly increased shortness of breath and a feeling in his chest. When he stopped working at immediately resolved. He did not have angina with radiation to the jaw and left axilla as he had had previously. He has not used sublingual nitroglycerin He denies syncope, palpitations or edema He is currently unaccompanied CV TESTING HISTORY: ECHO: Echo complete W/ contrast Result Date: 06/11/2023 Left Ventricle: There is mild increased wall thickness/hypertrophy. Systolic function is normal with an ejection fraction of 55-60%. See wall score diagram for wall motion abnormalities. Aortic Valve: The aortic valve is trileaflet. There is no regurgitation or stenosis. Mitral Valve: The leaflets are not thickened. There is no regurgitation or stenosis. STRESS: No results found. HOLTER: No results found. CARDIAC CATH: Cardiac catheterization Result Date: 06/11/2023 Conclusion: 1. Significant obstructive coronary disease with high-grade distal right coronary artery stenosis successfully stented with drug-eluting stent. 2. Otherwise nonobstructive coronary artery disease. 3. Normal left ventricular end-diastolic pressure. Recommendations: 1. Post PCI care. 2. Risk factor modification Percutaneous coronary intervention Result Date: 06/11/2023 Conclusion: 1. Significant obstructive coronary disease with high-grade distal right coronary artery stenosis successfully stented with drug-eluting stent. 2. Otherwise nonobstructive coronary artery disease. 3. Normal left ventricular end-diastolic pressure. Recommendations: 1. Post PCI care. 2. Risk factor modification CAROTID: No results found. CXR: No results found. Lipid Profile: Lab Results Component Value Date Cholesterol 129 (L) 06/10/2023 Cholesterol:HDL Ratio 4.0 06/10/2023 HDL Cholesterol 32 (L) 06/10/2023 Triglycerides 89 06/10/2023 LDL (calc) 79 06/10/2023 No data recorded No data recorded No data recorded EK11/14/2023 sinus rhythm with intra-atrial conduction delay 63 beats per minute Past Medical History: Diagnosis Date Arthritis Asthma DM2 (diabetes mellitus, type 2) ([facility]) 06/10/2023 DVT (deep venous thrombosis) ([facility]) chronic LLE on Eliquis Hypertension Obesity Visual impairment Past Surgical History: Procedure Laterality Date APPENDECTOMY ARTHROSCOPY MENISCECTOMY KNEE & CPT 91419 Left 09/20/2021 Performed by Mason Vang Jr., DO at [facility] Cardiac catheterization N/A 06/11/2023 Performed by Donna Osborne MD at [facility] CARDIAC CATH LABS CARPAL TUNNEL RELEASE Bilateral Coronary angiogram and left ventricular gram/pressure N/A 06/11/2023 Performed by Donna Osborne MD at [facility] CARDIAC CATH LABS HERNIA REPAIR x4 NECK SURGERY C6&7 [facility] 2006 SHOULDER ARTHROSCOPY Stent drug-eluting right coronary artery N/A 06/11/2023 Performed by Donna Osborne MD at [facility] CARDIAC CATH LABS Family History Problem Relation [...] Never Smokeless tobacco: Never Vaping Use Vaping status: Never Used Substance and Sexual Activity Alcohol use: Yes Comment: occassional Drug use: Never Sexual activity: Defer Partners: Female Other Topics Concern Caffeine Use No Social History Narrative Not on file Social Determinants of Health Financial Resource Strain: Not on file Food Insecurity: No Food Insecurity (11/14/2023) Hunger Screening Food Insecurity - Worry: Never [...] Negative. Hematologic/Lymphatic: Bruises/bleeds easily. Skin: Negative. Musculoskeletal: Negative. Gastrointestinal: Negative. Neurological: Negative. Psychiatric/Behavioral: Negative. Allergic/Immunologic: Positive for environmental allergies. CARDIOVASCULAR: Please review HPI. Physical Examination General appearance: Alert, oriented and cooperative. In no acute distress. Pleasant Skin: Warm and dry to touch. Respiratory: Clear to auscultation bilaterally, no use of accessory muscles. Cardiovascular: RRR with normal S1 and S2 with no murmurs. Musculoskeletal: No peripheral edema. VITAL SIGNS: BP 124/80 (BP Site: Left Arm, BP Postition: Sitting) Pulse 63 Ht 180.3 cm (5' 11 ) Wt (!) 156.5 kg (345 lb) SpO2 97% BMI 48.12 kg/m No orders of the defined types were placed in this encounter. There are no discontinued medications. IMPRESSIONS/PLAN 1. SOB (shortness of breath) - POCT EKG 2. Essential (primary) hypertension - POCT EKG 1. ASCVD --05/2023 drug-eluting stent to the RCA 2. Primary hypertension 3. Hyperlipidemia --atorvastatin --Zetia --labs 05/2023 4. Type 2 diabetes 5. Obstructive sleep apnea 6. Chronic deep vein thrombosis --Eliquis 7. BMI greater than 45 --patient is doing excellent work with diet and exercise We discussed the appropriate use of sublingual nitroglycerin No indication for further testing at this time. Patient does feel that with activity the discomfort is improving. We discussed that he should return if he is not continuing to improve Keep expected follow-up appointment TODAYS ORDERS Orders Placed This Encounter Procedures POCT EKG FOLLOW UP Return for March appointment. PCP: Maya Mattson MD Referring Physician: Maya Mattson MD [address] [place] [address] documented in this encounter [facility] 11-13-2023 Miscellaneous Notes Called patient to remind them to bring their most current copy of their medication list with them to their appt. Patient verbalizes understanding. documented in this encounter [facility] 11-13-2023 Telephone encounter Note Called patient to remind them to bring their most current copy of their medication list with them to their appt. Patient verbalizes understanding. [facility] 11-13-2023 Miscellaneous Notes Pt calls with c/o having some increased sob and mild chest discomfort over past few weeks while out doing yard work. He had cath/stent back in May and finished cardiac rehab. Advised if active chest pain needs to go to ER for evaluation and pt understood. F/u appt made for tomorrow in cancellation spot. documented in this encounter [facility] 11-13-2023 Telephone encounter Note Pt calls with c/o having some increased sob and mild chest discomfort over past few weeks while out doing yard work. He had cath/stent back in May and finished cardiac rehab. Advised if active chest pain needs to go to ER for evaluation and pt understood. F/u appt made for tomorrow in cancellation spot. [facility] 10-05-2023 Miscellaneous Notes Pt calls office stating that he is confused on what medications he needs to be taking. At first he believed that he was taking both Plavix and Brilinta. After much reviewing of the chart it appears that the Brilinta was changed to Plavix in May due to pt having SOB. Pt states that he was not having SOB and he never switched to the Plavix. After pt gets bottle of medication he is taking it appears that Brilinta script was from PCP. Master Control Engineer will message physician that pt last saw to clarify. So just stay on Brilinta and not take Plavix Pt updated to continue with Brilinta, requests new prescription, order pended, will have med list updated. signed documented in this encounter [facility] 10-05-2023 Telephone encounter Note Pt calls office stating that he is confused on what medications he needs to be taking. At first he believed that he was taking both Plavix and Brilinta. After much reviewing of the chart it appears that the Brilinta was changed to Plavix in May due to pt having SOB. Pt states that he was not having SOB and he never switched to the Plavix. After pt gets bottle of medication he is taking it appears that Brilinta script was from PCP. Master Control Engineer will message physician that pt last saw to clarify. [facility] 10-05-2023 Telephone encounter Note So just stay on Brilinta and not take Plavix [facility] Work Phone: 10-05-2023 Telephone encounter Note Pt updated to continue with Brilinta, requests new prescription, order pended, will have med list updated. [facility] 10-05-2023 Telephone encounter Note signed [facility] 09-20-2023 History of Present illness Narrative Dirk Fermin Zac Date of visit: 09/20/2023 Date of : 1965 Age: 58 y.o. Patient Active Problem List Diagnosis Essential (primary) hypertension Anxiety Gastroesophageal reflux disease without esophagitis Obstructive sleep apnea syndrome Morbid obesity ([facility]) Ventral hernia Chronic deep vein thrombosis (DVT) of lower extremity ([facility]) ACS (acute coronary syndrome) ([facility]) Acute coronary syndrome ([facility]) Unstable angina ([facility]) DM2 (diabetes mellitus, type 2) ([facility]) Allergies Allergen Reactions Amoxicillin Other Reaction(s): Unknown [...] Arthritis Asthma DM2 (diabetes mellitus, type 2) ([facility]) 06/10/2023 DVT (deep venous thrombosis) ([facility]) chronic LLE on Eliquis Hypertension Obesity Visual impairment No data recorded No data recorded No data recorded Past Surgical History: Procedure Laterality Date APPENDECTOMY ARTHROSCOPY MENISCECTOMY KNEE & CPT 56630 Left 09/20/2021 Performed by Mason Vang Jr., DO at [facility] Cardiac catheterization N/A 06/11/2023 Performed by Donna Osborne MD at [facility] CARDIAC CATH LABS CARPAL TUNNEL RELEASE Bilateral Coronary angiogram and left ventricular gram/pressure N/A 06/11/2023 Performed by Donna Osborne MD at [facility] CARDIAC CATH LABS HERNIA REPAIR x4 NECK SURGERY C6&7 [facility] 2006 SHOULDER ARTHROSCOPY Stent drug-eluting right coronary artery N/A 06/11/2023 Performed by Donna Osborne MD at [facility] CARDIAC CATH LABS Family History Problem Relation [...] diagnoses linked to this encounter. CAD s/p IRVIN to RCA 06/11/23 Normal EF TTE 05/2023 [...] Referring Physician: Maya Mattson MD [address] [place] [address] documented in this encounter [facility] 09-19-2023 Miscellaneous Notes Called patient to remind them to bring their most current copy of their medication list with them to their appt. Patient verbalizes understanding. documented in this encounter [facility] 09-19-2023 Telephone encounter Note Called patient to remind them to bring their most current copy of their medication list with them to their appt. Patient verbalizes understanding. [facility] 06-22-2023 History of Present illness Narrative Dirk Frank Date of visit: 06/22/2023 Date of : 1965 Age: 58 y.o. Patient Active Problem List Diagnosis Essential (primary) hypertension Anxiety Gastroesophageal reflux disease without esophagitis Obstructive sleep apnea syndrome Morbid obesity ([facility]) Ventral hernia Chronic deep vein thrombosis (DVT) of lower extremity ([facility]) ACS (acute coronary syndrome) ([facility]) Acute coronary syndrome ([facility] Unstable angina ([facility]) DM2 (diabetes mellitus, type 2) ([facility]) Allergies Allergen Reactions Amoxicillin Other Reaction(s): Unknown [...] follow-up visit. Discharge earlier this month from [facility] after being admitted with unstable angina [...] Arthritis Asthma DM2 (diabetes mellitus, type 2) ([facility]) 06/10/2023 DVT (deep venous thrombosis) ([facility]) chronic LLE on Eliquis Hypertension Obesity Visual impairment No data recorded No data recorded No data recorded Past Surgical History: Procedure Laterality Date APPENDECTOMY ARTHROSCOPY MENISCECTOMY KNEE & CPT 56562 Left 09/20/2021 Performed by Mason Vang Jr., DO at [facility] Cardiac catheterization N/A 06/11/2023 Performed by Donna Osborne MD at [facility] CARDIAC CATH LABS CARPAL TUNNEL RELEASE Bilateral Coronary angiogram and left ventricular gram/pressure N/A 06/11/2023 Performed by Donna Osborne MD at [facility] CARDIAC CATH LABS HERNIA REPAIR x4 NECK SURGERY C6&7 [facility] 2006 SHOULDER ARTHROSCOPY Stent drug-eluting right coronary artery N/A 06/11/2023 Performed by Donna Osborne MD at [facility] CARDIAC CATH LABS Family History Problem Relation [...] Morbid obesity with BMI of 50.0-59.9, adult ([facility]) Previous cardiac related labs and test results were reviewed and discussed with the patient. CAD s/p IRVIN to RCA 06/11/23 Normal EF TTE 05/2023 [...] Referring Physician: Maya Mattson MD [address] [place] [address] documented in this encounter [facility] [employer] [facility] 06-21-2023 Miscellaneous Notes Unable to remind patient of appointment. Phone was not accepting calls at this time.DEEPAK Mojica [facility] Telephone encounter Note Unable to remind patient of appointment. Phone was not accepting calls at this time.DEEPAK Mojica [facility] 08-22-2021 Evaluation note Encounter Date Diagnosis Assessment [...] that that is indicated in this scenario. [employer] Other Evaluation noteNo InformationNort [employer] Other Evaluation note* Diagnosis Acute coronary syndrome (CMS-HCC) Intermediate coronary syndrome [facility] Diagnosis ACS (acute coronary syndrome) (CMS-HCC)- Primary Intermediate coronary syndrome documented [facility]* Diagnosis Essential (primary) hypertension- Primary Unspecified essential hypertension documented [facility]* Diagnosis Morbid obesity (CMS/HCC)- Primary Morbid obesity Type 2 diabetes mellitus without complication, without long-term current use of insulin (CMS/HCC) Obstructive sleep apnea syndrome Obstructive sleep apnea (adult) (pediatric) Benign essential hypertension (CMS/HCC) Essential hypertension, benign Chronic deep vein thrombosis (DVT) of other vein of lower extremity, unspecified laterality (CMS/HCC)- Primary Benign essential hypertension (CMS/HCC) Essential hypertension, benign Type 2 diabetes mellitus without complication, without long-term current use of insulin (CMS/HCC) Morbid obesity (CMS/HCC) Morbid obesity Other chest pain Chronic low back pain, unspecified back pain laterality, unspecified whether sciatica present Unable to walk Difficulty in walking Type 2 diabetes mellitus without complication, without long-term current use of insulin (CMS/HCC)- Primary Acute coronary syndrome (CMS/HCC) Intermediate coronary syndrome Benign essential hypertension (CMS/HCC) Essential hypertension, benign Essential (primary) hypertension (CMS/HCC) Unspecified essential hypertension Morbid obesity (CMS/HCC) Morbid obesity Type 2 diabetes mellitus without complication, without long-term current use of insulin (CMS/HCC)- Primary Morbid (severe) obesity due to excess calories (E66.01) Body mass index [BMI] 50.0-59.9, adult (Z68.43) Chronic embolism and thrombosis of other specified deep vein of unspecified lower extremity (I82.599) Obstructive sleep apnea syndrome Obstructive sleep apnea (adult) (pediatric) Benign essential hypertension (CMS/HCC) Essential hypertension, benign Chronic deep vein thrombosis (DVT) of other vein of lower extremity, unspecified laterality (CMS/HCC) Morbid obesity (CMS/HCC) Morbid obesity Atherosclerosis of [place] coronary artery of [place] heart without angina pectoris (CMS/HCC)- Primary Type 2 diabetes mellitus without complication, without long-term current use of insulin (CMS/HCC) Morbid obesity (CMS/HCC) Morbid obesity Diarrhea, unspecified type Lumbar radiculopathy Thoracic or lumbosacral neuritis or radiculitis, unspecified Morbid obesity (CMS/HCC) Morbid obesity History of heart artery stent Benign essential hypertension (CMS/HCC) Essential hypertension, benign Acute coronary syndrome (CMS/HCC) Intermediate coronary syndrome documented in this encounter [facility]* Diagnosis Morbid obesity (CMS/HCC)- Primary Morbid obesity Type 2 diabetes mellitus without complication, without long-term current use of insulin (CMS/HCC) Obstructive sleep apnea syndrome Obstructive sleep apnea (adult) (pediatric) Benign essential hypertension (CMS/HCC) Essential hypertension, benign Chronic deep vein thrombosis (DVT) of other vein of lower extremity, unspecified laterality (CMS/HCC)- Primary Benign essential hypertension (CMS/HCC) Essential hypertension, benign Type 2 diabetes mellitus without complication, without long-term current use of insulin (CMS/HCC) Morbid obesity (CMS/HCC) Morbid obesity Other chest pain Chronic low back pain, unspecified back pain laterality, unspecified whether sciatica present Unable to walk Difficulty in walking Type 2 diabetes mellitus without complication, without long-term current use of insulin (CMS/HCC)- Primary Acute coronary syndrome (CMS/HCC) Intermediate coronary syndrome Benign essential hypertension (CMS/HCC) Essential hypertension, benign Essential (primary) hypertension (CMS/HCC) Unspecified essential hypertension Morbid obesity (CMS/HCC) Morbid obesity Type 2 diabetes mellitus without complication, without long-term current use of insulin (CMS/HCC)- Primary Morbid (severe) obesity due to excess calories (E66.01) Body mass index [BMI] 50.0-59.9, adult (Z68.43) Chronic embolism and thrombosis of other specified deep vein of unspecified lower extremity (I82.599) Obstructive sleep apnea syndrome Obstructive sleep apnea (adult) (pediatric) Benign essential hypertension (CMS/HCC) Essential hypertension, benign Chronic deep vein thrombosis (DVT) of other vein of lower extremity, unspecified laterality (CMS/HCC) Morbid obesity (CMS/HCC) Morbid obesity Atherosclerosis of [place] coronary artery of [place] heart without angina pectoris (CMS/HCC)- Primary Type 2 diabetes mellitus without complication, without long-term current use of insulin (CMS/HCC) Morbid obesity (CMS/HCC) Morbid obesity Diarrhea, unspecified type Lumbar radiculopathy Thoracic or lumbosacral neuritis or radiculitis, unspecified Atherosclerosis of [place] coronary artery of [place] heart without angina pectoris (CMS/HCC) documented in this encounter [facility]* Diagnosis Essential (primary) hypertension- Primary Unspecified essential hypertension [facility] Diagnosis Morbid obesity (CMS/HCC) Morbid obesity documented in this encounter [facility]* Diagnosis S/P right coronary artery (RCA) stent placement- Primary Essential hypertension Unspecified essential hypertension Pure hypercholesterolemia History of DVT (deep vein thrombosis) Morbid obesity with BMI of 50.0-59.9, adult (CMS-HCC) SOB (shortness of breath) Shortness of breath [facility]* Diagnosis SOB (shortness of breath) Shortness of breath [facility]* Diagnosis Acute coronary syndrome (CMS-HCC) Intermediate coronary syndrome [facility]* Diagnosis Acute coronary syndrome (CMS-HCC) Intermediate coronary syndrome [facility]* Diagnosis Acute coronary syndrome (CMS-HCC) Intermediate coronary syndrome documented in [facility] encounter [facility]* Diagnosis Acute coronary syndrome (CMS-HCC) Intermediate coronary syndrome documented in this encounter [facility]* Diagnosis Acute coronary syndrome (CMS-HCC) Intermediate coronary syndrome [facility]* Diagnosis Acute coronary syndrome (CMS-HCC) Intermediate coronary syndrome [facility]* Diagnosis SOB (shortness of breath)- Primary Shortness of breath Essential (primary) hypertension Unspecified essential hypertension [facility]* Diagnosis Acute coronary syndrome (CMS-HCC) Intermediate coronary syndrome [facility]* Diagnosis Acute coronary syndrome (CMS-HCC) Intermediate coronary syndrome [facility]* Diagnosis Acute coronary syndrome (CMS-HCC) Intermediate coronary syndrome documented [facility]* Diagnosis Acute coronary syndrome (CMS-HCC) Intermediate coronary syndrome documented [facility]* Diagnosis Acute coronary syndrome (CMS-HCC) Intermediate coronary syndrome documented [facility]* Diagnosis Acute coronary syndrome (CMS-HCC) Intermediate coronary syndrome documented [facility]* Diagnosis Acute coronary syndrome (CMS-HCC) Intermediate coronary syndrome documented [facility]* Diagnosis Acute coronary syndrome (CMS-HCC) Intermediate coronary syndrome documented [facility]* Diagnosis Acute coronary syndrome (CMS-HCC) Intermediate coronary syndrome documented [facility]* Diagnosis Acute coronary syndrome (CMS-HCC) Intermediate coronary syndrome documented [facility]* Diagnosis Acute coronary syndrome (CMS-HCC) Intermediate coronary syndrome documented [facility]* Diagnosis Acute coronary syndrome (CMS-HCC) Intermediate coronary syndrome documented [facility]* Diagnosis Acute coronary syndrome (CMS-HCC) Intermediate coronary syndrome [facility]* Diagnosis Acute coronary syndrome (CMS-HCC) Intermediate coronary syndrome [facility]* Diagnosis Acute coronary syndrome (CMS-HCC) Intermediate coronary syndrome [facility] Narrative - Reported* Type Description Date Medical History hypertension Medical History sleep apnea Medical History asthma Medical History blood clot left lower leg Surgical History C6-C7 neck fusion Surgical History hernia repair x4 Surgical History appendectomy Surgical History Bilateral CTR Surgical History right shoulder Hospitalization History appendectomy [employer] Other InstructionsNot on filedocumented in this encounter [...] Health SystemInstructionsNot on filedocumented in this encounter [facility] (narrative)* Consultation (Routine) - Pending Review Specialty Diagnoses / Procedures Referred By Contac t Referred To Contact Cardiac Rehabilitation Diagnoses S/P right coronary artery (RCA) stent placement Procedures Ambulatory referral to Cardiac Rehab Eddie Dougherty MD [address] [place] [address] [facility] Cardiac Rehab Billing [address] [place] [address] Referral ID Status Reason Start Date Expiration Date V isits Requested Visits Authorized [id number] Pending Review 06/22/2023 06/21/2024 36 [phone] [facility] for visit Narrative* Consultation (Routine) - Authorized Specialty Diagnoses / Procedures Referred By Contac t Referred To Contact Cardiac Rehabilitation Diagnoses Acute coronary syndrome ([facility]) Procedures [facility] [place] Donna Osborne MD [address] [place] [address] [facility] Cardiac Rehab Billing [address] [place] [address] Referral ID Status Reason Start Date Expiration Date V isits Requested Visits Authorized [id number] Authorized 06/11/2023 06/10/2024 36 36 [facility] for visit Narrative* Consultation (Routine) - Pending Review Specialty Diagnoses / Procedures Referred By Contac t Referred To Contact Cardiac Rehabilitation Diagnoses Acute coronary syndrome ([facility]) Procedures [facility] Cardiac Rehab- [place], [place] Donna Osborne MD [address] [place] [address] [facility] Cardiac Rehab Billing [address] [place] [address] Referral ID Status Reason Start Date Expiration Date V isits Requested Visits Authorized [id number] Pending Review 06/11/2023 06/10/2024 36 36 [facility] Summary Purpose Family History No Family History Records FoundNo Family History Records FoundNo Family History Records FoundNo Family History Records FoundNo Family History Records FoundNo Family History Records FoundNo Family History Records Found Advance Directives Latest Code Status on File Code Status Date Activated Date Inactivated Comments Full Code 06/10/2023 7:04 AM 06/12/2023 7:16 PM Latest Code Status on File Code Status Date Activated Date Inactivated Comments Full Code 06/10/2023 7:04 AM 06/12/2023 7:16 PM Date Activated Date Inactivated Comments 06/10/2023 7:04 AM 06/12/2023 7:16 PM Additional Source Comments (unrecognized sect ion and content) No Status Records FoundNo Status Records FoundNo Status Records FoundNo Status Records FoundNo Status Records FoundNo Status Records FoundNo Status Records Found INFORMATION SOURCE (unrecogn ized section and content) DATE CREATED AUTHOR 08/01/2021 [facility] dical Specialist DATE CREATED AUTHOR AUTHOR'S ORGANIZ ATION 08/18/2021 [facility] DATE CREATED AUTHOR AUTHOR'S ORGANIZ ATION 04/18/2022 [facility] DATE CREATED AUTHOR AUTHOR'S ORGANIZ ATION 06/14/2023 [facility] DATE CREATED AUTHOR AUTHOR'S ORGANIZ ATION 01/26/2024 [facility] dical Specialists [facility] DATE CREATED AUTHOR AUTHOR'S ORGANIZ ATION 03/30/[address] [facility] DATE CREATED AUTHOR AUTHOR'S ORGANIZ ATION 07/12/2024 [facility] REASON FOR VISIT (unrecogniz ed section and content) Reason Comments Follow-up 3 MONTH Reason Comments Follow-up EST PT F/U 6 MS LABS DONE SCHED W/ PT L/S TMP Reason Comments Med Refill Reason Onset Date Comments Med Refill 05/27/2024 Reason Onset Date Comments Brilinta vs Plavix 10/05/2023 Reason Comments Follow-up EST PT TTH s/p Cath/ stent SCHED W/ Reason Onset Date Comments Attribution Outreach 11/27/2023 Reason Onset Date Comments sob and mild chest discomfort 11/13/2023 Reason Comments Follow-up EARLY FU CHEST PAIN Chest Pain Shortness of Breath Care Teams (unrecognized sec tion and content) Event Manager Relationship Specialty Start Date End Date Maya Mattson MD [address] [place] [address] PCP - General Family Medicine 08/15/17 Event Manager Relationship Specialty Start Date End Date Maya Mattson MD [address] [place] [address] PCP - General Family Medicine 08/15/17 Event Manager Relationship Specialty Start Date End Date Maya Mattson MD [address] [place] [address] PCP - General Family Medicine 08/15/17 Event Manager Relationship Specialty Start Date End Date Maya Mattson MD [address] [place] [address] PCP - General Family Medicine 08/15/17 Event Manager Relationship Specialty Start Date End Date Maya Mattson MD [address] [place] [address] PCP - General Family Medicine 08/15/17 Event Manager Relationship Specialty Start Date End Date Maya Mattson MD [address] [place] [address] PCP - General Family Medicine 08/15/17 Event Manager Relationship Specialty Start Date End Date Maya Mattson MD [address] [place] [address] PCP - General Family Medicine 11/28/22 Beryl Bautista NP [address] [place] [address] Nurse Practitioner Family Medicine 11/28/22 Event Manager Relationship Specialty Start Date End Date Maya Mattson MD [address] [facility] [place] [address] PCP - General Family Medicine 11/28/22 Beryl Bautista NP [address] [place] [address] Nurse Practitioner Family Medicine 11/28/22 Event Manager Relationship Specialty Start Date End Date Maya Mattson MD [address] [place] [address] PCP - General Family Medicine 11/28/22 Beryl Bautista NP [address] [place] [address] Nurse Practitioner Family Medicine 11/28/22 Event Manager Relationship Specialty Start Date End Date Maya Mattson MD [address] [facility] [place] [address] PCP - General Family Medicine 11/28/22 Beryl Bautista NP [address] [place] [address] Nurse Practitioner Family Medicine 11/28/22 Event Manager Relationship Specialty Start Date End Date Maya Mattson MD [address] [facility] [place] [address] PCP - General Family Medicine 08/15/17 Event Manager Relationship Specialty Start Date End Date Maya Mattson MD [address] [place] [address] PCP - General Family Medicine 08/15/17 Event Manager Relationship Specialty Start Date End Date Maya Mattson MD [address] [place] [address] PCP - General Family Medicine 08/15/17 Event Manager Relationship Specialty Start Date End Date Maya Mattson MD [address] [place] [address] PCP - General Family Medicine 08/15/17 Event Manager Relationship Specialty Start Date End Date Maya Mattson MD [address] [place] [address] PCP - General Family Medicine 08/15/17 Event Manager Relationship Specialty Start Date End Date Maya Mattson MD [address] [place] [address] PCP - General Family Medicine 08/15/17 Event Manager Relationship Specialty Start Date End Date Maya Mattson MD [address] [place] [address] PCP - General Family Medicine 08/15/17 Event Manager Relationship Specialty Start Date End Date Maya Mattson MD [address] [place] [address] PCP - General Family Medicine 08/15/17 Event Manager Relationship Specialty Start Date End Date Maya Mattson MD [address] [place] [address] PCP - General Family Medicine 08/15/17 Event Manager Relationship Specialty Start Date End Date Maya Mattson MD [address] [place] [address] PCP - General Family Medicine 08/15/17 Event Manager Relationship Specialty Start Date End Date Maya Mattson MD [address] [place] [address] PCP - General Family Medicine 08/15/17 Event Manager Relationship Specialty Start Date End Date Maya Mattson MD [address] [place] [address] PCP - General Family Medicine 08/15/17 Event Manager Relationship Specialty Start Date End Date Maya Mattson MD [address] [place] [address] PCP - General Family Medicine 08/15/17 Event Manager Relationship Specialty Start Date End Date Maya Mattson MD [address] [place] [address] PCP - General Family Medicine 08/15/17 Event Manager Relationship Specialty Start Date End Date Maya Mattson MD [address] [place] [address] PCP - General Family Medicine 08/15/17 Event Manager Relationship Specialty Start Date End Date Maya Mattson MD [address] [place] [address] PCP - General Family Medicine 08/15/17 Event Manager Relationship Specialty Start Date End Date Maya Mattson MD [address] [place] [address] PCP - General Family Medicine 08/15/17 Event Manager Relationship Specialty Start Date End Date Maya Mattson MD [address] [place] [address] PCP - General Family Medicine 08/15/17 Event Manager Relationship Specialty Start Date End Date Maya Mattson MD [address] [place] [address] PCP - General Family Medicine 08/15/17 Event Manager Relationship Specialty Start Date End Date Maya Mattson MD [address] [place] [address] PCP - General Family Medicine 08/15/17 Event Manager Relationship Specialty Start Date End Date Maya Mattson MD [address] [place] [address] PCP - General Family Medicine 08/15/17 Event Manager Relationship Specialty Start Date End Date Maya Mattson MD [address] [place] [address] PCP - General Family Medicine 08/15/17 Event Manager Relationship Specialty Start Date End Date Maya Mattson MD [address] [place] [address] PCP - General Family Medicine 08/15/17 Event Manager Relationship Specialty Start Date End Date Maya Mattson MD [address] [place] [address] PCP - General Family Medicine 08/15/17 Event Manager Relationship Specialty Start Date End Date Maya Mattson MD [address] [facility] [place] [address] PCP - General Family Medicine 08/15/17 Event Manager Relationship Specialty Start Date End Date Maya Mattson MD [address] [facility] [place] [address] PCP - General Family Medicine 08/15/17 Event Manager Relationship Specialty Start Date End Date Maya Mattson MD [address] [facility] [place] [address] PCP - General Family Medicine 08/15/17 Event Manager Relationship Specialty Start Date End Date Maya Mattson MD [address] [facility] [place] [address] PCP - General Family Medicine 08/15/17 FOR [...] BE BASED ON THE PRIMARY CLINICAL RECORDS. [facility]. provides no warranty or guarantee of the accuracy or completeness of information in this document.
--- NOTE | 2024-08-11 12:11 | PM.CN ---
Consult Note: HPI Data of Consult Patient: known to practice within the last 3 years Consult date: 08/04/24 Requesting Physician: Elayne Arreola MD Primary Care Provider: ALLISON MATTSON Consult Narrative Reason for consult: low back pain, left leg pain Narrative: 59yom who presents for assessment. notes persistence of pain through low back and left leg. states he could not tolerate side effects of zonegran, so discontinued and resumed tizanidine. gets relief with t#3. cc:: CC: Elayne Arreola MD Review of Systems ROS Status of ROS 10 or more systems reviewed and unremarkable except as noted in history and below PFSH [facility] Medical History Low back pain ?M54.50 - Low back pain, unspecified (ICD-10) Diabetes ?E11.9 - Type 2 diabetes mellitus without complications (ICD-10) Sleep apnea ?G47.30 - Sleep apnea, unspecified (ICD-10) Asthma ?J45.909 - Unspecified asthma, uncomplicated (ICD-10) Surgical History S/P left knee arthroscopy ?Z98.890 - Other specified postprocedural states (ICD-10) S/P arthroscopy of shoulder ?Z98.890 - Other specified postprocedural states (ICD-10) H/O cervical spine surgery ?Z98.890 - Other specified postprocedural states (ICD-10) History of umbilical hernia repair ?Z98.890 - Other specified postprocedural states (ICD-10) ?Z87.19 - Personal history of other diseases of the digestive system (ICD-10) S/P inguinal hernia repair ?Z98.890 - Other specified postprocedural states (ICD-10) ?Z87.19 - Personal history of other diseases of the digestive system (ICD-10) S/P carpal tunnel release ?Z98.890 - Other specified postprocedural states (ICD-10) History of appendectomy ?Z90.49 - Acquired absence of other specified parts of digestive tract (ICD-10) Meds Home Medications and Allergies Home Medications ?Medication ?Instructions ?Recorded ?Confirmed ?Type apixaban 5 mg tablet (Eliquis) 5 mg PO BID 04/23/23 01/28/24 History metformin 500 mg tablet 500 mg PO BID 04/23/23 01/28/24 History metoprolol tartrate 50 mg tablet 50 mg PO BID 04/23/23 01/28/24 History tizanidine 4 mg capsule (Zanaflex) 4 mg PO BID PRN muscle spasticity 04/23/23 01/28/24 History ascorbic acid (vitamin C) 500 mg 500 mg PO DAILY 10/11/23 01/28/24 History tablet (C-500) multivitamin 1 tab PO DAILY 10/11/23 01/28/24 History omega 1-tso-blr-fish oil 300 1 cap PO DAILY 10/11/23 01/28/24 History mg-1,000 mg capsule (Fish Oil) acetaminophen 300 mg-codeine 30 mg 1 tab PO BID PRN pain #14 tabs 06/30/24 Rx tablet zonisamide 100 mg capsule 100 mg PO BID #60 caps 06/30/24 Rx (Zonegran) Allergies Allergy/AdvReac Type Severity Reaction Status Date / Time amoxicillin (From Augmentin) Allergy Unknown Gastrointestinal Verified 01/28/24 07:56 Upset clavulanic acid (From Allergy Unknown Gastrointestinal Verified 01/28/24 07:56 Augmentin) Upset Exam Narrative Exam Narrative: Psych-alert and oriented x 3. Attentive and appropriate, constitutionally normal, displays normal mood and affect per situation.? There are no obvious deficits in memory, reasoning, or intellect.? Skin-no obvious rashes, bruising, erythema noted to the patient's area of pain. Extremities- extremities are warm with minimal edema and palpable pulses. Lumbar-no significant tenderness to palpation noted in the lumbar spine and paraspinal musculature.? Pain is elicited with extension, and lateral rotation of the lumbar spine. Range of motion is slightly diminished with these motions due to pain. Facet loading maneuvers are positive bilaterally and do appear to be concordant with the patient's normal complaints of pain.? Coordination remains intact.? Gait remains non-antalgic. Assessment and Plan Assessment and Plan (1) Lumbar stenosis with neurogenic claudication: (2) Lumbar spondylosis: (3) Lumbar degenerative disc disease: Qualifiers: Disc-related pain type: discogenic back pain and lower extremity pain Qualified Code(s): M51.362 - Other intervertebral disc degeneration, lumbar region with discogenic back pain and lower extremity pain Plan 59yom who presents for assessment. continues to have significant low back and left leg pain. i will order FCE to determine objective restrictions and provide statement to support that he cannot complete specific activities. will continue tizanidine and t#3. follow up in 3 months.
== END 2024-08-11 11:14 | disposition home or self-care (01) ==
LOC: PM 11:13
PROVIDERS: PCP Family Medicine; Visit Provider Anesthesiology
DX: M48.062 Spinal stenosis, lumbar region with neurogenic claudication (principal); M47.816 Spondylosis without myelopathy or radiculopathy, lumbar region; M51.362 Other intervertebral disc degeneration, lumbar region with discogenic back pain and lower extremity pain
CPT/HCPCS: G0463

== ENCOUNTER 2024-08-15 07:49 | Outpatient (RCR) | payer OTHER, SELFPAY | END 2024-08-16 11:28 | disposition home or self-care (01) | LOC: OT 07:49 | PROVIDERS: PCP Family Medicine; Visit Provider Anesthesiology | DX: M48.062 Spinal stenosis, lumbar region with neurogenic claudication (principal) | CPT/HCPCS: 97750 ==

== ENCOUNTER 2024-11-10 13:41 | Outpatient (OUT) | payer OTHER, SELFPAY ==
--- NOTE | 2024-11-10 15:07 | PM.CN ---
Consult Note: HPI Data of Consult Patient: known to practice within the last 3 years Consult date: 11/10/24 Requesting Physician: Elayne Arreola MD Primary Care Provider: ALLISON MATTSON Consult Narrative Reason for consult: low back, left leg pain and weakness Narrative: 59yom who presents for assessment. worsening left leg pain, increasing difficulty with ambulation. notes that he drags his leg at times. uses tizanidine. denies adverse med side effects. cc:: CC: Elayne Arreola MD Review of Systems ROS Status of ROS 10 or more systems reviewed and unremarkable except as noted in history and below PFSH [facility] Medical History Low back pain ?M54.50 - Low back pain, unspecified (ICD-10) Diabetes ?E11.9 - Type 2 diabetes mellitus without complications (ICD-10) Sleep apnea ?G47.30 - Sleep apnea, unspecified (ICD-10) Asthma ?J45.909 - Unspecified asthma, uncomplicated (ICD-10) Surgical History S/P left knee arthroscopy ?Z98.890 - Other specified postprocedural states (ICD-10) S/P arthroscopy of shoulder ?Z98.890 - Other specified postprocedural states (ICD-10) H/O cervical spine surgery ?Z98.890 - Other specified postprocedural states (ICD-10) History of umbilical hernia repair ?Z98.890 - Other specified postprocedural states (ICD-10) ?Z87.19 - Personal history of other diseases of the digestive system (ICD-10) S/P inguinal hernia repair ?Z98.890 - Other specified postprocedural states (ICD-10) ?Z87.19 - Personal history of other diseases of the digestive system (ICD-10) S/P carpal tunnel release ?Z98.890 - Other specified postprocedural states (ICD-10) History of appendectomy ?Z90.49 - Acquired absence of other specified parts of digestive tract (ICD-10) Meds Home Medications and Allergies Home Medications ?Medication ?Instructions ?Recorded ?Confirmed ?Type apixaban 5 mg tablet (Eliquis) 5 mg PO BID 04/23/23 01/28/24 History metformin 500 mg tablet 500 mg PO BID 04/23/23 01/28/24 History metoprolol tartrate 50 mg tablet 50 mg PO BID 04/23/23 01/28/24 History tizanidine 4 mg capsule (Zanaflex) 4 mg PO DAILY PRN muscle spasticity 04/23/23 08/11/24 History ascorbic acid (vitamin C) 500 mg 500 mg PO DAILY 10/11/23 01/28/24 History tablet (C-500) multivitamin 1 tab PO DAILY 10/11/23 01/28/24 History omega 9-dhu-okx-fish oil 300 1 cap PO DAILY 10/11/23 01/28/24 History mg-1,000 mg capsule (Fish Oil) acetaminophen 300 mg-codeine 30 mg 1 tab PO BID PRN pain #14 tabs 06/30/24 Rx tablet tizanidine 4 mg capsule (Zanaflex) 4 mg PO DAILY PRN muscle 08/11/24 Rx spasticity #30 caps tramadol 50 mg tablet 50 mg PO TID PRN pain #90 tabs 11/10/24 Rx Allergies Allergy/AdvReac Type Severity Reaction Status Date / Time amoxicillin (From Augmentin) Allergy Unknown Gastrointestinal Verified 01/28/24 07:56 Upset clavulanic acid (From Allergy Unknown Gastrointestinal Verified 01/28/24 07:56 Augmentin) Upset zonisamide (From Zonegran) AdvReac Severe suicidal Verified 08/11/24 12:18 Exam Narrative Exam Narrative: Psych-alert and oriented x 3. Attentive and appropriate, constitutionally normal, displays normal mood and affect per situation. There are no obvious deficits in memory, reasoning, or intellect.? Skin-no obvious rashes, bruising, erythema noted to the patient's area of pain.? Extremities- extremities are warm with minimal edema and palpable pulses. Lumbar-tenderness to palpation noted in the lumbar spine and paraspinal musculature. Pain is not elicited with flexion, extension, and lateral rotation of the lumbar spine. Range of motion is not diminished with these motions. Facet loading maneuvers are negative.? Strength-noted to be unremarkable with the exception of decreased strength rated at 4 out of 5 in left quadriceps femoris, anterior tibialis. Sensory-no notable sensory deficits in the bilateral lower extremities to touch or pinprick in all dermatomal distributions with the exception to decreased sensation to the left L4, 5 dermatomal distribution Coordination remains intact.? Gait remains non-antalgic. Assessment and Plan Assessment and Plan (1) Lumbar stenosis with neurogenic claudication: Plan 59yom who presents for assessment. failed conservative measures. previous advanced imaging showed multilevel stenosis, but now several years old. given worsening symptoms and leg weakness, will order lumbar ct without contrast. he cannot tolerate mri, even with valium. he is in agreement. meds reviewed, will trial tramadol 50mg tid prn. follow up after imaging.
== END 2024-11-10 13:42 | disposition home or self-care (01) ==
PROVIDERS: PCP Family Medicine; Visit Provider Anesthesiology
DX: M48.062 Spinal stenosis, lumbar region with neurogenic claudication (principal)
CPT/HCPCS: G0463

== ENCOUNTER 2025-04-20 13:56 | Outpatient (OUT) | payer MEDICARE, SELFPAY ==
--- OUTSIDE RECORDS SUMMARY | 2025-04-20 14:01 | XMS_ITS | Encounter Summary ---
Author Organization [facility] Address [address] [facility] [facility] [place] [address] Care Team Providers Care City Letter Carrier Name Role Phone Maya Carter MD Primary Care Provider [phone] Beryl Bautista ASSEMBLER ADJUSTER Unavailable [phone] Reason for Referral * Medications - ClosedSpecialtyDiagnoses / ProceduresReferred By ContactReferred To Contact Diagnoses Type 2 diabetes mellitus without complication, without long-term current use of insulin (HCC) Maya Carter MD [address] [place] [address] Phone: tel: fax: Referral IDStatusReasonStart DateExpiration DateVisits RequestedVisits [id number] Encounter Details DateTypeDepartmentCare Team (Latest Contact Info)Hfpemdgeqnx53/21/2025Orders Only [facility] Family Medicine [address] [place] [id number] Maya Carter MD [address] [place] [address] Type 2 diabetes mellitus without complication, without long-term current use of insulin (HCC) (Primary Dx) Social History Tobacco UseTypesPacks/DayYears UsedDateSmoking Tobacco: NeverSmokeless Tobacco: NeverAlcohol UseStandard Drinks/WeekCommentsYes3 (1 standard drink = 0.6 oz pure alcohol)PHQ-2AnswerDate RecordedPatient Health Questionnaire-2 [id number] Sex and Gender InformationValueDate RecordedSex Assigned at BirthNot on file Legal WiiPjse1009/06/2022 6:35 PM EDTGender IdentityNot on fileSexual Orientation Not on filedocumented as of this encounter Plan of Treatment Not on file documented as of this encounter Visit Diagnoses Diagnosis Type 2 diabetes mellitus without complication, without long-term current use of insulin (HCC)- Primary documented in this encounter Care Teams Team MemberRelationshipSpecialtyStart DateEnd Date Maya Carter MD [address] [place] [address] PCP - GeneralFamily Medicine11/28/22 Beryl Bautista NP [address] [place] [address] Nurse PractitionerFamily Medicine11/28/22documented as of this encounter
--- OUTSIDE RECORDS SUMMARY | 2025-04-20 14:01 | XMS_ITS | Encounter Summary ---
Author Organization [facility] Address [address] [place] [address] Care Team Providers Care Safety Leader Name Role Phone Maya Carter MD Primary Care Provider [phone] Beryl Bautista BAKER [employer]ISCUIT Unavailable [phone] Encounter Details DateTypeDepartmentCare Team (Latest Contact Info)Yaefuqlwhfy09/21/2025Telephone [facility] Medicine [address] [place] [address] Maya Carter MD [address] [place], [place] [id number] Social History Tobacco UseTypesPacks/DayYears UsedDateSmoking Tobacco: NeverSmokeless Tobacco: NeverAlcohol UseStandard Drinks/WeekCommentsYes3 (1 standard drink = 0.6 oz pure alcohol)PHQ-2AnswerDate RecordedPatient Health Questionnaire-2 [id number] Sex and Gender InformationValueDate RecordedSex Assigned at BirthNot on file Legal JnwEkyw1809/06/2022 6:35 PM EDTGender IdentityNot on fileSexual Orientation Not on filedocumented as of this encounter Miscellaneous Notes * Telephone Encounter - Maya Srivastava MA - 04/14/2025 3:12 PM EDT Spoke wit pt and he isnt having side effects, said some good days than not so good days. Weight between 350-345. Havent checked his blood sugars lately. Said he isnt feeling too bad. * Telephone Encounter - Maya Carter MD - 04/14/2025 10:50 AM EDT How is he doing with the 5mg? Any side effects? What are BS? Is he losing weight? * Telephone Encounter - Janette Gómez - 04/14/2025 8:53 AM EDT Patient is requesting monjauro 5mg injection. Are you increasing this? [facility]ses [facility] [place]. Thank you. documented in this encounter Plan of Treatment Not on file documented as of this encounter Visit Diagnoses Not on filedocumented in this encounter Care Teams Team MemberRelationshipSpecialtyStart DateEnd Date Maya Carter MD [address] [facility] [place] [address] PCP - GeneralFamily Medicine11/28/22 Beryl Bautista NP [address] [place] [address] Nurse PractitionerFascly Medicine11/28/22documented as of this encounter
--- OUTSIDE RECORDS SUMMARY | 2025-04-20 14:01 | XMS_ITS | Clinical Summary ---
Author Organization [facility] Address [address] [place] [address] Care Team Providers Care Saw Edge [employer]user Circular Name Role Phone Maya Carter MD Primary Care Provider [phone] Beryl Bautista EMERGENCY ROOM TECHNICIAN Unavailable [phone] Allergies Active AllergyReactionsCriticalityNoted WltnMqwjnblrUymznwsmnpf18/25/2023 Other Reaction(s): Unknown Amoxicillin-Pot Cudehhfswhk93/25/2023 Other Reaction(s): Unknown Clavulanic AcidGI qpdabmnwquoPki99/05/7158XinqpmqcqGejjibut08/01/2024 Medications MedicationSigDispense QuantityRefillsLast FilledStart DateEnd DateStatus Multiple Vitamin (Multivitamin Adult) tablet Take 1 tablet by mouth in the morning.Active nitroglycerin (Nitrostat) 0.[address] 0.3 mg under the tongue Daily as needed for chest pain06/12/2023ctive [employer] Blood Glucose Test test strip Use strip as directed by jvsgjhqomr98/19/2023ctive Drug [place] Unilet Lancets 30G misc USE DIRECTED to test BLOOD SUGAR THREE TIMES DAILY06/12/2023ctive Blood Glucose Monitoring Suppl (True Metrix Meter) w/Device kit USE DIRECTED to test BLOOD SUGAR THREE TIMES DAILY06/12/2023ctive pantoprazole (ProtoNix) 40 MG EC tablet Indications:Gastroesophageal reflux disease without esophagitisTake 1 tablet (40 mg) by mouth in the morning. Take before meals. 90 tablet 07/09/2023ctive diazePAM (Valium) 10 MG tablet TAKE 1 TABLET BY MOUTH PRIOR TO RZPHVDTZW36/17/2024ctive tiZANidine (Zanaflex) 4 MG tablet Take 4 mg by mouth in the morning and 4 mg before bedtime.4Active zinc gluconate 50 MG tablet Take 50 mg by mouth DailyActive Ascorbic Acid (vitamin C) 100 MG tablet Take 100 mg by mouth DailyActive clopidogrel (Plavix) 75 MG tablet Take 75 mg by mouth in the morning.4Active apixaban (Eliquis) 5 MG tablet Indications:History of heart artery stentTake 1 tablet (5 mg) by mouth in the morning and 1 tablet (5 mg) before bedtime. 180 tablet 5Active spironolactone (Aldactone) 25 MG tablet Take 25 mg by mouth in the morning.5Active carvedilol (Coreg) 25 MG tablet Take 25 mg by mouth in the morning and 25 mg in the evening. Take with meals. 5Active lisinopril 20 MG tablet Take 20 mg by mouth Daily5Active traMADol (Ultram) 50 MG tablet Take by mouthActive atorvastatin (Lipitor) 40 MG tablet Indications:Acute coronary syndrome (HCC)TAKE 1 TABLET BY MOUTH IN THE MORNING 90 tablet 5Active Tirzepatide (Mounjaro) 7.5 MG/0.5ML solution auto-injector Indications:Type 2 diabetes mellitus without complication, without long-term current use of insulin (HCC)Inject 7.5 mg under the skin 1 (one) time per week 2 mL 5Active Tirzepatide 5 MG/0.5ML solution auto-injector Indications:Type 2 diabetes mellitus without complication, without long-term current use of insulin (HCC)Inject 5 mg under the skin 1 (one) time per week 2 mL Expired Active Problems ProblemNoted DateDiagnosed DateChest pain02/04/2025 Assessment & Plan (02/12/2025 3:43 PM EDT): Resolved after adjustment of hypertensive medications. ASCVD (arteriosclerotic cardiovascular disease)03/28/2024Mixed hyperlipidemia 03/28/2024cute coronary snxycbci98/16/2023 Assessment & Plan (06/15/2023 12:33 PM EST): Had stenet placed last week. Unstable pmsakf1806/09/2023Type 2 diabetes mellitus without complication, without long-term current use of vhjhujy7506/05/2023 Assessment & Plan (02/12/2025 3:43 PM EDT): Orders: POCT Glycated hemoglobin, total Tirzepatide (Mounjaro) 2.5 MG/0.5ML solution auto-injector; Inject 2.5 mg under the skin 1 (one) time per week Assessment & Plan (06/15/2023 12:35 PM EST): A1c at 6.2. Insurance had declined dietitian in past but will try again. Insurance has denied use of GLP-1. Continue metformin. Assessment & Plan (06/05/2023 11:12 PM EST): Get him back on the metformin. *Will try again to get GLP-1. That would help his BS but he needs tolose weight as the obesity is contributing to many different issues. Unilateral primary osteoarthritis, left knee11/28/2022bnormal lobzlls2011/16/2022 Bslsomx2611/16/2022enign essential cngdlpzdogxc14/25/2023 Assessment & Plan (07/19/2023 7:45 PM EST): Continue coreg. Well controlled. Assessment & Plan (06/15/2023 12:34 PM EST): Now controlled on coreg and lisinopril. Assessment & Plan (06/05/2023 11:05 PM EST): Add in lisinopril at 10 mg. Abbie djust medications to ge tthe BP under control. Assessment & Plan (12/28/2022 1:35 PM EDT): Stable on metoprolol. Acute left-sided low back pain with left-sided hrlcndav43/25/2023Obstructive sleep apnea mthlseov29/25/2023 Assessment & Plan (07/19/2023 7:44 PM EST): Continue CPAP. Assessment & Plan (12/28/2022 1:35 PM EDT): Has not been wearing his CPAP as he can't get comfortable at night. Promises to try again 01/14. Primary iqebvuhwlesuxi78/25/2023Recurrent ventral otfnmo2911/16/2022Umbilical hernia without obstruction and without gpdfgzke36/25/2023Lumbar paraspinal muscle spasm11/13/2022Lumbar hreoonwdrvoch19/22/2023 Assessment & Plan (01/24/2024 7:29 PM EDT): Still following with pain mgmt. Swjlexoi31/22/2023hronic deep vein thrombosis (DVT) of lower extremity 10/03/2022 Overview (11/28/2022): Left leg Assessment & Plan (07/19/2023 7:45 PM EST): Maintained on eliquis. Assessment & Plan (06/05/2023 11:05 PM EST): He is on long distance operator eliquis. History of psychiatric sjjagopo74/08/2021Internal derangement of left knee 04/01/2021Gastroesophageal reflux disease without zuiwhjckjwf64/19/2016Hepatic pqeyyovqz37/19/2016Essential (primary) olxmxmoqbshk99/19/2016Morbid obesity 06/06/2015 Assessment & Plan (07/19/2023 7:51 PM EST): Has lost 40# on ewllbutrin and naltrexone. Plan to continue. Assessment & Plan (06/15/2023 12:35 PM EST): Will add in contrave. He is very motivated to lose weight after cardiac event. Pain has kept him from exercise but he will be doig cardiac rehab and we can hope that helps. Assessment & Plan (06/05/2023 11:06 PM EST): Struggling to lose weight since he is uanble to exercise or do much activity at all. Umbilical gntmmr1806/06/2015Ventral ljsvdv3506/06/2015BMI 45.0-49.9, adult06/06/2015 Aomyskxcjo91/17/2014 Encounters DateTypeDepartmentCare HxpmUxhlktvsknd74/21/2025Orders Only [facility] [address] [place] [phone] Maya Carter MD Type 2 diabetes mellitus without complication, without long-term current use of insulin (HCC) (Primary Dx)04/14/2025Telephone [facility] [address] [place] [address] Maya Carter MD 03/11/2025Orders Only [facility] [address] [facility] [place] [address] Maya Carter MD Type 2 diabetes mellitus without complication, without long-term current use of insulin (HCC) (Primary Dx)03/11/2025Refill [facility] [address] [facility] [place] [address] Maya Carter MD Type 2 diabetes mellitus without complication, without long-term current use of insulin (HCC); BLAIR (obstructive sleep apnea)03/09/2025Refill [facility] [address] [place] [address] [phone] Nicole Mitchell NP Acute coronary syndrome (HCC)02/13/2025Telephone [facility] [address] [facility] [place] [address] Maya Carter MD 02/12/2025 2:40 PM EDTFollow-Up [facility] [address] [facility] [place] [address] Maya Carter MD Type 2 diabetes mellitus without complication, without long-term current use of insulin (HCC) (Primary Dx); Other chest pain; Primary hypertension ; BLAIR (obstructive sleep apnea)02/12/2025Telephone [facility] [address] [place] [facility] [place] [phone] Stephanie Pelaez MA 02/12/20258895Jjzwwg74/15/2025Patient Outreach [facility] [address] [address] Lina Rosa LPN 01/20/2025Orders Only [facility] [address] [place] [facility] [place] [phone] Maya Carter MD History of heart artery stent01/20/2025Telephone [facility] [address] [place] [facility] [place] [address] Maya Carter MD from Last 3 Months Immunizations ImmunizationAdministration DatesNext DueInfluenza, injectable, quadrivalent, preservative free04/18/2016,05/09/2015,07/04/2014Influenza, seasonal, injectable, preservative free03/25/2013Influenza, seasonal, intradermal, preservative free07/04/2018,04/14/2013Td (adult), 5 Lf tetanus toxoid, preservative free, zidthwai12/21/2013,03/25/2013Tdap1,05/15/2013, 03/28/2013,03/25/2013,04/14/2012 Family History Medical HistoryRelationNameCommentsProstate cancerFatheropen heart surgeryMother RelationNameStatusCommentsFatherDeceasedMotherAlive Social History Tobacco UseTypesPacks/DayYears UsedDateSmoking Tobacco: NeverSmokeless Tobacco: NeverAlcohol UseStandard Drinks/WeekCommentsYes3 (1 standard drink = 0.6 oz pure alcohol)PHQ-2AnswerDate RecordedPatient Health Questionnaire-2 Hcgow602 Sex and Gender InformationValueDate RecordedSex Assigned at BirthNot on file Legal TucKumz6409/06/2022 6:35 PM EDTGender IdentityNot on fileSexual Orientation Not on file Last Filed Vital Signs Vital SignReadingTime TakenCommentsBlood Shnwswmz621/7408 2:46 PM EDT Xxktj074002/12/2025 2:46 PM OXOGddtkfdzcth07.2 ??C (97.1 ??F)06/22/2023 1:03 PM ESTRespiratory Rate--Oxygen Nxkrmcltei05%02/12/2025 2:46 PM EDTInhaled Oxygen Concentration--Vmijnz321 kg (362 lb)02/12/2025 2:46 PM PIHOcdwzo228.3 cm (5' 11 )02/12/2025 2:46 PM EDTBody Mass Index50.49002/12/2025 2:46 PM EDT Plan of Treatment Health MaintenanceDue DateLast DoneCommentsCT Zugfxmmrlbpn1967Colonoscopy 1967Colorectal Cancer Bdryeyiwc1967FIT-DNA1967FIT1967 FOBT1967Medicare Annual Wellness (AWV)1965 0019Ayglufeburuqs1967 Diabetes: Urine Protein Faufxxdez25/25/693457/Influenza Vaccine (#1) /03/2019, 04/18/2016, 05/09/2015, Additional history existsDiabetes: Hemoglobin A1C/, 09/18/2024, 01/24/2024, Additional history existsDiabetes: Retinopathy Cemmdusnh72 Procedures Procedure NamePriorityDate/TimeAssociated DiagnosisCommentsPOCT GLYCATED HEMOGLOBIN, BWHMTEronskp82/21/2025 3:19 PM EDT Type 2 diabetes mellitus without complication, without long-term current use of insulin (HCC) MICROALBUMIN / CREATININE URINE YPNLNHosstch49/25/2024 10:35 AM EST Type 2 diabetes mellitus without complication, without long-term current use of insulin (HCC) COLOR FUNDUS PHOTOGRAPHY - OU - BOTH YIYYYrxrbdu45/04/2024 10:26 AM EST Type 2 diabetes mellitus without complication, without long-term current use of insulin (HCC) from Last 3 Months or Most Recently Relevant to Health Maintenance Results * POCT Glycated hemoglobin, total (02/12/2025 3:19 PM EDT)ComponentValueRef RangeTest MethodAnalysis TimePerformed AtPathologist SignatureHemoglobin A1C 7.0Specimen (Source)Anatomical Location / LateralityCollection Method / Volume Collection TimeReceived QvodTyucx26/21/2025 3:19 PM EDT Narrative Authorizing ProviderResult TypeResult Faustino Carter MDPOINT OF CARE TEST ENTER/EDIT ORDERABLESFinal Result * (ABNORMAL) Microalbumin / creatinine urine ratio (07/19/2023 10:35 AM EST) ComponentValueRef RangeTest MethodAnalysis TimePerformed AtPathologist SignatureCREATININE, RANDOM QJFFR657(H)20 - 320 mg/dLQUESTComment: Verified by repeat analysis. ALBUMIN, URINE4.6See Note: mg/dLQUESTComment: Reference Range: Reference Range Not established ALBUMIN/CREATININE RATIO, RANDOM URINE12<30 mcg/mg creatQUESTComment: The ADA defines abnormalities in albumin excretion as follows: Albuminuria Category ?Result (mcg/mg creatinine) Normal to Mildly increased <30 Moderately increased ? 30-299 Severely increased > OR = 300 The ADA recommends that at least two of three specimens collected within a 3-6 month period be abnormal before considering a patient to be within a diagnostic category. Specimen (Source)Anatomical Location / LateralityCollection Method / Volume Collection TimeReceived TimeUrineUrine specimen obtained by clean catch procedure / Yvjrfum4707/19/2023 10:35 AM EST07/19/2023 3:59 PM EST Narrative Resulting Agency Comment Performing Organization Information ?Site ID: [id number] ?Name: [facility] ?Address: [address] [place] [address], [address] [place] [id number] ?Director: Kuldip Hurst MD Authorizing ProviderResult TypeResult Faustino Carter MDWICHITA COUNTY [facility] URINE ORDERABLESFinal ResultPerforming OrganizationAddressCity/State/ZIP CodePhone Number [facility]ST * [employer] - OU - Both Eyes (06/28/2023 10:26 AM EST)Anatomical RegionLateralityModalityHeadFundus Photography Narrative Authorizing ProviderResult TypeResult StatusMaya Carter MDOPH PHOTOGRAPHY Final Result from Last 3 Months or Most Recently Relevant to Health Maintenance Insurance Care Teams Team MemberRelationshipSpecialtyStart DateEnd Maya Carter MD [address] [place] [address] PCP - GeneralFamily Medicine11/28/22 Beryl Bautista NP [address] [place] [address] Nurse PractitionerFamily Medicine11/28/22
--- OUTSIDE RECORDS SUMMARY | 2025-04-20 14:01 | XMS_ITS | Clinical Summary ---
Author Organization [employer] tem Address [id number] [address] [place] [address] Care Team Providers Care Assayer Name Role Phone Maya Carter MD Primary Care Provider [phone] Allergies Active AllergyReactionsCriticalityNoted KtiqIlyqhwrkJcmhsxxfyyz82/25/2023 Other Reaction(s): Unknown Amoxicillin-Pot ClavulanateOther (See Comments)10/27/2018 tore my liver up Other Reaction(s): Unknown XpyapmtqdCzgllult56/01/2024 Medications MedicationSigDispense QuantityRefillsLast FilledStart DateEnd DateStatus apixaban (ELIQUIS) 5 mg tablet Take 1 tablet (5 mg total) by mouth in the morning and 1 tablet (5 mg total) before bedtime.Active nitroglycerin (NITROSTAT) 0.[address] 1 tablet (0.3 mg total) under the tongue every 5 (five) minutes as needed for chest pain. 100 tablet ctive blood sugar diagnostic (glucose blood) strip Use strip as directed by glucometer 100 strip 10108/13/2022ctive atorvastatin (LIPITOR) 40 mg tablet Take 1 tablet (40 mg total) by mouth in the morning. 30 tablet 06/12/2023ctive pregabalin (LYRICA) 25 mg capsule Take 1 capsule (25 mg total) by mouth in the morning and 1 capsule (25 mg total) at noon and 1 capsule (25 mg total) before bedtime.03/19/2024ctive zinc gluconate 50 mg tablet Take 1 tablet (50 mg total) by mouth in the morning.Active ascorbic acid, vitamin C, (VITAMIN C) 500 mg/5 mL syrup Take 5 mL (500 mg total) by mouth in the morning.Active clopidogreL (PLAVIX) 75 mg tablet Take 1 tablet (75 mg total) by mouth in the morning. 90 tablet 4Active carvediloL (COREG) 25 mg tablet Take 1 tablet (25 mg total) by mouth in the morning and 1 tablet (25 mg total) before bedtime. 60 tablet tive lisinopriL (PRINIVIL,ZESTRIL) 20 mg tablet Take 1 tablet (20 mg total) by mouth nightly. 30 tablet tive spironolactone (ALDACTONE) 25 mg tablet Take 1 tablet (25 mg total) by mouth in the morning. 30 tablet tive tiZANidine (ZANAFLEX) 4 mg capsule Take 1 capsule (4 mg total) by mouth daily as needed.01/15/2025tive traMADoL (ULTRAM) 50 mg tablet Take 1 tablet (50 mg total) by mouth 3 (three) times a day as needed for pain. 5Active Active Problems ProblemNoted DateDiagnosed DateChest pain, unspecified type02/04/2025SCVD (arteriosclerotic cardiovascular disease)03/28/2024Mixed hyperlipidemia 03/28/2024DM2 (diabetes mellitus, type 2)06/10/2023hronic deep vein thrombosis (DVT) of lower sbkingwku60/11/2023 Overview (10/03/2022): Left leg Essential (primary) yofvtbyyzuxg35nxiety Gastroesophageal reflux disease without akykchjpphy23 Obstructive sleep apnea ncodmvly15MI 50.0-59.9, adult Ventral nldbep61 Resolved Problems ProblemNoted DateDiagnosed DateResolved DateAcute coronary tppsyloj50/17/2023 03/28/2024CS (acute coronary syndrome)Unstable angina /09/2023 Encounters DateTypeDepartmentCare FdtuSbwpghkvcbg07/26/2025Telephone [facility] [address] [place] [phone] Carley Winston RN starting Xcnwsuin20/21/2025 10:30 AM EDTOffice Visit [facility] [address] [place] [address] Debra Kaur MD Essential (primary) hypertension (Primary Dx); ASCVD (arteriosclerotic cardiovascular disease)02/12/20257642Lkvjun10/20/2025 Telephone [facility] [address] [place] [address] Lois Puentes CMA 02/04/2025 9:03 PM EDT - 02/05/2025 10:36 AM EDTHospital Encounter [facility] [address] [place] [phone] Meek Marquez MD Gill, MD Rand Najera Ruqiyya T, MD Chest pain, unspecified type (Primary Dx); ASCVD (arteriosclerotic cardiovascular disease) Discharge Disposition: Home02/04/2025Travelfrom Last 3 Months Family History Medical HistoryRelationNameCommentsDiabetesBrotherBillyCancerFatherprostateHeart diseaseMotherColetteDrug abusePaternal GrandmotherRelationNameStatusComments BrotherBillyAliveFatherDeceasedMotherColetteAlivePaternal GrandmotherDeceased Social History Tobacco UseTypesPacks/DayYears UsedDateSmoking Tobacco: NeverSmokeless Tobacco: Never Tobacco Cessation:Counseling Given: Not Answered Alcohol UseStandard Drinks/WeekCommentsYes0 (1 standard drink = 0.6 oz pure alcohol)Maybe 4 beers a monthHousing InstabilityAnswerDate RecordedAre you worried or concerned that in the next two months you may not have stable housing that you own, rent or stay in as a part of a household?No3Childcare AnswerDate JnzcfnxtFczjmwjdwHdjijja79/12/2019EmploymentAnswerDate Recorded CtszoenqrxThywzuj83/12/2019Hunger ScreeningAnswerDate RecordedWithin the past 12 months we worried whether our food would run out before we got money to buy more.Never True02/12/2025Within the past 12 months the food we bought just didn't last and we didn't have money to get more.Never True02/12/2025Purpose - LifeAnswerDate RecordedPurpose and direction in jvnkXfoekil72/11/2021ex and Gender InformationValueDate RecordedSex Assigned at BirthNot on fileLegal Sex Male01/28/2015 11:26 AM EDTGender IdentityNot on fileSexual OrientationNot on file Last Filed Vital Signs Vital SignReadingTime TakenCommentsBlood Tmmbdhsq170/7402/12/2025 10:04 AM EDT Ncupy510702/12/2025 10:04 AM NAVAwlwuglchmx88.8 ??C (98.3 ??F)02/05/2025 7:34 AM EDTRespiratory Dhjc578802/05/2025 7:34 AM EDTOxygen Njyavzcrnc77%02/12/2025 10:04 AM EDTInhaled Oxygen Concentration--Dvdugh807.2 kg (362 lb)02/12/2025 10:04 AM LQHGjtvym597.3 cm (5' 11 )02/12/2025 10:04 AM EDTBody Mass Index50.49002/12/2025 10:04 AM EDT Plan of Treatment Health MaintenanceDue DateLast DoneCommentsDiabetic Ophthalmology Exam1967 Statin Use: Fzgqxpmtzgvxbo1967Statin Use: Fzejsyqg1967Depression Vbrcaoxrq60/07/1979Adult BMI Follow Up Plan1985Diabetic Foot Exam 1985Zoster (Shingles) Vaccine (1 of 2)2017Influenza Vaccine 5007/04/2018, 04/18/2016, 05/09/2015, Additional history existsAdult BMI Fnfsomrpo03Tobacco Zflxphgxa235DTaP,Tdap and Td Vaccines (8 - Td or Tdap), 05/15/2013, 05/15/2013, Additional history exists Goals GoalPatient Goal TypeAssociated ProblemsRecent ProgressPatient-Stated?Author home YasmaniWolfJUANI martins Note: Evaluation of progress towards goal: under assessment Medical Devices ImplantedTypeAreaManufacturerDevice IdentifierShelf Expiration DateModel / Serial / LotSystem Cor Stnt 3.5mm X 12mm 145cm Xience Skypoint Mtlnk Tom - [id number] Implanted:Qty: 1 on 06/11/2023 [facility]: ArterialABBOTT [id number] / / Procedures Procedure NamePriorityDate/TimeAssociated DiagnosisCommentsBASIC METABOLIC PANEL Fqyklbo6502/12/2025 11:07 AM EDT ASCVD (arteriosclerotic cardiovascular disease) BEDSIDE RTXYCEAQdceuph38/14/2025 7:35 AM EDT ECG 12-IRXEVtjnoyr13/14/2025 4:44 AM EDT EXTRA TUBES LAVENDER BUNVljuxnc71/14/2025 4:31 AM EDT EXTRA TUBES BLUE BFYNwchxej10/14/2025 4:31 AM EDT EXTRA UVIGIRngexbs86/14/2025 4:31 AM EDT TROPONIN I, HIGH DLCFYBXOGUHYWNR28/14/2025 4:31 AM EDT XR CHEST 1 GRZLGD6002/05/2025 1:05 AM EDT TROP I, HIGH SENSITIVITY 1 SXLFOJBU69/13/2025 10:21 PM EDT ECG 12-ZWHMVNWV85/13/2025 9:15 PM EDTLIPID PROFILEAdd-On02/04/2025 9:14 PM EDT TROPONIN I, HIGH SENSITIVITY 0 OCRIVJBA80/13/2025 9:14 PM EDT TROPONIN I, HIGH SENSITIVITY 0 LSHFXLIL99/13/2025 9:14 PM EDT BOAQKVVEUYZDE84/13/2025 9:14 PM EDT D-ORRUINEFA96/13/2025 9:14 PM EDT COMPREHENSIVE METABOLIC WNPTRFTNL65/13/2025 9:14 PM EDT B-TYPE NATRIURETIC GCHTUPUZDVP39/13/2025 9:14 PM EDT PXVDEEPE44/13/2025 9:14 PM EDT PROTIME & NNMLUGU6002/04/2025 9:14 PM EDT CBC WITH AUTO HCLHJIQFSTWIMSXZ72/13/2025 9:14 PM EDT from Last 3 Months Results * (ABNORMAL) Basic Metabolic Panel (02/12/2025 11:07 AM EDT)ComponentValueRef RangeTest MethodAnalysis TimePerformed AtPathologist VzhawhyskEMKWAZ606232 - 146 mmol/L02/12/2025 1:55 PM [facility] LABORATORYPOTASSIUM 4.63.5 - 5.0 mmol/L02/12/2025 1:55 PM [facility] EPVDDFOC56508 - 109 mmol/L02/12/2025 1:55 PM [facility] LABORATORYCARBON GQVSNRC4178 - 32 mmol/L02/12/2025 1:55 PM [facility] LABORATORYANION GAP65 - 15 mmol/L02/12/2025 1:55 PM [facility] LABORATORYBLOOD UREA FTJFRDNJ107 - 23 mg/dL02/12/2025 1:55 PM [facility] LABORATORYCREATININE1.070.60 - 1.30 mg/dL 02/12/2025 1:55 PM [facility] LABORATORYComment:METHOD TRACEABLE TO IDMS PBDHYHZROXYSLCA168(H)65 - 99 mg/dL02/12/2025 1:55 PM EDT [facility] LABORATORYCALCIUM9.38.5 - 10.5 mg/dL02/12/2025 1:55 PM [facility] LABORATORYEGFR Non-Race Jkewinnse73>=60 ml/min/1.73sq.m002/12/2025 1:55 PM [facility] Comment: Reported eGFR is based on the CKD-EPI 2020 equation that does not use a race coefficient. EGFR not calculated due to patient's gender not being defined. Specimen (Source)Anatomical Location / LateralityCollection Method / Volume Collection TimeReceived TimeBloodVenous blood / UnknownVenipuncture / Unknown 02/12/2025 11:07 AM EDT02/12/2025 11:07 AM EDT Narrative Authorizing ProviderResult TypeResult StatusJopranav Wiseman INSTRUMENT MAKER-CNPLAB BLOOD ORDERABLESFinal ResultPerforming OrganizationAddressCity/State/ZIP CodePhone Number [facility] [address] [place] [address], * (ABNORMAL) Bedside Glucose *Place/Obtain serum glucose if >500 per glucometer. (02/05/2025 7:35 AM EDT)ComponentValueRef RangeTest MethodAnalysis Time Performed AtPathologist SignatureBedside Glucose (POC)130(H)65 - 99 mg/dL 02/05/2025 7:38 AM EDTPGERMAN HOSPITALpecimen (Source) Anatomical Location / LateralityCollection Method / VolumeCollection Time Received Timearterial/iyazffclq53/14/2025 7:35 AM EDT02/05/2025 7:38 AM EDT Narrative Authorizing ProviderResult TypeResult StatusKaleem U Duke MDPOINT OF CARE TEST ORDERABLESFinal ResultPerforming OrganizationAddressCity/State/ZIP CodePhone Number [place] [phone] [place] [address], [place] * ECG 12 lead (02/05/2025 4:44 AM EDT) Only the most recent of2 resultswithin the time period is included. Specimen (Source)Anatomical Location / LateralityCollection Method / Volume Collection TimeReceived Time02/05/2025 4:44 AM EDT Narrative TRACEMASTERVUE - 02/09/2025 4:35 PM EDT Authorizing ProviderResult TypeResult StatusIsaura Valdez APRN-CNPECG ORDERABLES Final ResultPerforming OrganizationAddressCity/State/ZIP CodePhone Number JULIO * Lavender Top (02/05/2025 4:31 AM EDT)ComponentValueRef RangeTest Method Analysis TimePerformed AtPathologist SignatureExtra TubeAuto Resulted 02/05/2025 6:03 AM EDTPGERMAN HOSPITALpecimen (Source) Anatomical Location / LateralityCollection Method / VolumeCollection Time Received TimeBloodVenous blood / Npnpqri0202/05/2025 4:31 AM EDT02/05/2025 4:34 AM EDT Narrative Authorizing ProviderResult TypeResult StatusMeek HENDERSON BLOOD ORDERABLES Final ResultPerforming OrganizationAddressCity/State/ZIP CodePhone Number [address] [place] [address], [place] * Light Blue Top (02/05/2025 4:31 AM EDT)ComponentValueRef RangeTest Method Analysis TimePerformed AtPathologist SignatureExtra TubeAuto Resulted 02/05/2025 6:03 AM EDTPMercy Health – The Jewish Hospitalimen (Source) Anatomical Location / LateralityCollection Method / VolumeCollection Time Received TimeBloodVenous blood / Gfdnycv5002/05/2025 4:31 AM EDT02/05/2025 4:34 AM EDT Narrative Authorizing ProviderResult TypeResult StatusMeek Marquez MDLAB BLOOD ORDERABLES Final ResultPerforming OrganizationAddressCity/State/ZIP CodePhone Number [address] [place] [address], [place] * Troponin I, High Sensitivity (02/05/2025 4:31 AM EDT)ComponentValueRef Range Test MethodAnalysis TimePerformed AtPathologist SignatureTROPONIN I, HIGH SLZZGTXMUXV11<21 ng/L02/05/2025 6:19 AM EDTPROM[facility]ICA [facility] Specimen (Source)Anatomical Location / LateralityCollection Method / Volume Collection TimeReceived TimeBlood (Other)Venipuncture / Tbfnzmf4102/05/2025 4:31 AM EDT02/05/2025 4:33 AM EDT Narrative Authorizing ProviderResult TypeResult StatusHanvalente Valdez INSTRUMENT MAKER-CNPLAB BLOOD ORDERABLESFinal ResultPerforming OrganizationAddressCity/State/ZIP CodePhone Number [facility] [address] [place] [address], [place] * X-ray chest 1 view (02/05/2025 1:05 AM EDT)Anatomical RegionLateralityModality Body, ChestN/AComputed RadiographySpecimen (Source)Anatomical Location / LateralityCollection Method / VolumeCollection TimeReceived Time02/05/2025 1:19 AM EDT Narrative 02/05/2025 1:43 AM EDT XR CHEST 1 VW HISTORY: Chest pain COMPARISON: 06/09/2023 TECHNIQUE: Single AP upright view of the chest obtained. FINDINGS: Lower cervical fusion hardware. Cardiomediastinal silhouette is within normal limits. No focal consolidation. No pleural effusion. No pneumothorax. IMPRESSION: * ??No radiographic evidence of acute cardiopulmonary abnormality. Approved by Resident Sasha Cervantes, DO ??on 02/05/2025 1:19 AM Félix Lund MD have personally reviewed the image(s) and agree with and/or edited the report Finalized by Félix Munoz MD on 02/05/2025 1:43 AM Procedure Note Félix Munoz MD - 02/05/2025 XR CHEST 1 VW HISTORY: Chest pain COMPARISON: 06/09/2023 TECHNIQUE: Single AP upright view of the chest obtained. FINDINGS: Lower cervical fusion hardware. Cardiomediastinal silhouette is within normal limits. No focalconsolidation. No pleural effusion. No pneumothorax. IMPRESSION: * No radiographic evidence of acute cardiopulmonary abnormality. Approved by Resident Sasha Cervantes DO on 02/05/2025 1:19 AM I, Félix Munoz MD have personally reviewed the image(s) and agree withand/or edited the report Finalized by Félix Munoz MD on 02/05/2025 1:43 AM Authorizing ProviderResult TypeResult Analia Cassidy [facility] DIAGNOSTIC IMAGING ORDERABLESFinal Result * Troponin I, High Sensitivity 1 Hour (02/04/2025 10:21 PM EDT)ComponentValueRef RangeTest MethodAnalysis TimePerformed AtPathologist SignatureTROPONIN I, HIGH FWSXZWWDSDI42<21 ng/L02/04/2025 11:04 PM EDSelect [facility] (Source)Anatomical Location / LateralityCollection Method / VolumeCollection TimeReceived TimeBloodVenous blood / UnknownVenipuncture / Mnynbaa5502/04/2025 10:21 PM EDT02/04/2025 10:23 PM EDT Narrative Authorizing ProviderResult TypeResult StatusMeek HENDERSON BLOOD ORDERABLES Final ResultPerforming OrganizationAddressCity/State/ZIP CodePhone Number [address] [place] [address], * Troponin I, High Sensitivity 0 Hour (02/04/2025 9:14 PM EDT)ComponentValueRef RangeTest MethodAnalysis TimePerformed AtPathologist SignatureTROPONIN I, HIGH MEUBZBDBQRF05<21 ng/L02/04/2025 10:02 PM EDSelect [facility] (Source)Anatomical Location / LateralityCollection Method / VolumeCollection TimeReceived TimeBloodVenous blood / UnknownVenipuncture / Ypwtllw3602/04/2025 9:14 PM EDT02/04/2025 9:24 PM EDT Narrative Authorizing ProviderResult TypeResult StatusMeek Marquez MDLAB BLOOD ORDERABLES Final ResultPerforming OrganizationAddressCity/State/ZIP CodePhone Number [address] [place] [address], * CBC auto differential (02/04/2025 9:14 PM EDT)ComponentValueRef RangeTest MethodAnalysis TimePerformed AtPathologist SignatureWBC8.94 - 11 x10E9/L 02/04/2025 9:32 PM EDTPPROMEDICA BAY PARK HOSPITALRBC Count4.874.1 - 5.7 X10E12/L02/04/2025 9:32 PM EDTPPROMEDICA BAY PARK HOSPITAL Ahwfexsqfd63.413 - 17 g/dL02/04/2025 9:32 PM EDTPPROMEDICA BAY PARK HOSPITALHematocrit42.439 - 50 %02/04/2025 9:32 PM EDTPPROMEDICA BAY PARK HOSPITALMCV8780 - 100 fL02/04/2025 9:32 PM EDTPPROMEDICA BAY PARK HOSPITALMCH29.527 - 34 pg02/04/2025 9:32 PM EDTPPROMEDICA BAY PARK HOSPITALMCHC34.032 - 36 g/dL02/04/2025 9:32 PM EDTPPROMEDICA BAY PARK HOSPITALRDW13.911.5 - 15 %02/04/2025 9:32 PM EDUNIVERSITY HOSPITALS AHUJA MEDICAL CENTERPlatelet Ftouv962972 - 450 X10E9/L02/04/2025 9:32 PM EDT [facility]ITALMPV7.17 - 12 fL02/04/2025 9:32 PM EDT [facility]ITALNeutrophils %66.4%02/04/2025 9:32 PM EDT [facility]ITALLymphocytes %22.7%02/04/2025 9:32 PM EDT [facility]ITALMonocytes %8.1%02/04/2025 9:32 PM EDT [facility]ITALEosinophils %2.3%02/04/2025 9:32 PM EDT [facility]ITALBasophils %0.5%02/04/2025 9:32 PM EDT [facility]PITALNeutrophils Absolute (A)5.91.5 - 6.6 10*3/uL02/04/2025 9:32 PM EDUNIVERSITY HOSPITALS AHUJA MEDICAL CENTERLymphocytes Absolute2.01.0 - 3.5 10*3/02/04/2025 9:32 PM EDTPPROMEDICA BAY PARK HOSPITALMonocytes Absolute0.70.0 - 0.9 10*3/02/04/2025 9:32 PM EDUNIVERSITY HOSPITALS AHUJA MEDICAL CENTEREosinophils Absolute0.20.0 - 0.4 10*3/02/04/2025 9:32 PM EDUNIVERSITY HOSPITALS AHUJA MEDICAL CENTERBasophils Absolute0.00.0 - 0.2 10*3/02/04/2025 9:32 PM EDUNIVERSITY HOSPITALS AHUJA MEDICAL CENTERDifferential TypeAUTOMATED BXXTVMOQOBHF47/13/2025 9:32 PM [facility] (Source)Anatomical Location / LateralityCollection Method / VolumeCollection TimeReceived TimeBloodVenous blood / UnknownVenipuncture / Atmxbcr8802/04/2025 9:14 PM EDT02/04/2025 9:24 PM EDT Narrative Authorizing ProviderResult TypeResult StatusMeek HENDERSON BLOOD ORDERABLES Final ResultPerforming OrganizationAddressCity/State/ZIP CodePhone Number [address] [place] [address], * APTT (02/04/2025 9:14 PM EDT)ComponentValueRef RangeTest MethodAnalysis Time Performed AtPathologist NzzjryrzlGBTX0286 - 37 sec02/04/2025 9:47 PM EDT [facility] (Source)Anatomical Location / LateralityCollection Method / VolumeCollection TimeReceived TimeBloodVenous blood / UnknownVenipuncture / Exwvyze8502/04/2025 9:14 PM EDT02/04/2025 9:24 PM EDT Narrative Authorizing ProviderResult TypeResult StatusMeek HENDERSON BLOOD ORDERABLES Final ResultPerforming OrganizationAddressCity/State/ZIP CodePhone Number [address] [place] [address], [place] * Protime & INR (02/04/2025 9:14 PM EDT)ComponentValueRef RangeTest Method Analysis TimePerformed AtPathologist XjgiccoszAKRTOQH15.19.8 - 13.2 sec 02/04/2025 9:47 PM [facility]ONINR1.20.9 - 1.2 02/04/2025 9:47 PM [facility]pec[facility] (Source) Anatomical Location / LateralityCollection Method / VolumeCollection Time Received TimeBloodVenous blood / UnknownVenipuncture / Fscxzpz0702/04/2025 9:14 PM EDT02/04/2025 9:24 PM EDT Narrative Authorizing ProviderResult TypeResult StatusMeek HENDERSON BLOOD ORDERABLES Final ResultPerforming OrganizationAddressty/[facility]/ZIP CodePhone Number [address] [place] [address], [place] * D-Dimer (02/04/2025 9:14 PM EDT)ComponentValueRef RangeTest MethodAnalysis TimePerformed AtPathologist SignatureD DIMER<1501 - 255 ug/mL02/04/2025 9:47 PM [facility]ANTONComment:Results <255 ng/mL DDU: The presensence of a VTE can safely be excluded with a negative D-Dimer result and Wells score. A negative result doesn't exclude the possibility of DIC. The test should berepeated along with other diagnostic tests if the patient's symptoms persist or worsen.Specimen (Source)Anatomical Location / Laterality Collection Method / VolumeCollection TimeReceived TimeBloodVenous blood / UnknownVenipuncture / Vswfbmv3002/04/2025 9:14 PM EDT02/04/2025 9:24 PM EDT Narrative Authorizing ProviderResult TypeResult StatusMeek HENDERSON BLOOD ORDERABLES Final ResultPerforming OrganizationAddressty/State/ZIP CodePhone Number [address] [place] [address], [place] * B-type natriuretic peptide (02/04/2025 9:14 PM EDT)ComponentValueRef RangeTest MethodAnalysis TimePerformed AtPathologist BfctbfeknDFI94<=100 pg/mL02/04/2025 11:02 PM EDSelect [facility] (Source)Anatomical Location / LateralityCollection Method / VolumeCollection TimeReceived Time BloodVenous blood / UnknownVenipuncture / Emmvtrc4202/04/2025 9:14 PM EDT 02/04/2025 9:24 PM EDT Narrative Authorizing ProviderResult TypeResult Shanna Marquez MDLAB BLOOD ORDERABLES Final ResultPerforming OrganizationAddressty/State/ZIP CodePhone Number [address] [place] [address], [place] * Magnesium (02/04/2025 9:14 PM EDT)ComponentValueRef RangeTest MethodAnalysis TimePerformed AtPathologist SignatureMAGNESIUM2.11.8 - 2.6 mg/dL02/04/2025 9:55 PM EDSelect [facility] (Source)Anatomical Location / LateralityCollection Method / VolumeCollection TimeReceived Time BloodVenous blood / UnknownVenipuncture / Nwpvemq1602/04/2025 9:14 PM EDT 02/04/2025 9:24 PM EDT Narrative Authorizing ProviderResult TypeResult StatusMeek HENDERSON BLOOD ORDERABLES Final ResultPerforming OrganizationAddressty/State/ZIP CodePhone Number [address] [place] [address], [place] * (ABNORMAL) Lipid profile (02/04/2025 9:14 PM EDT)ComponentValueRef RangeTest MethodAnalysis TimePerformed AtPathologist FiqulvbsoIPTLWKSBOUV886(L)150 - 200 mg/dL02/05/2025 10:11 AM [facility] UXHUBTVOSUWPQAFIZZVRLQ365 27 - 150 mg/dL02/05/2025 10:11 AM [facility] LABORATORYHDL RPZTGQHTTPM82(L)>39 mg/dL02/05/2025 10:11 AM [facility] LABORATORYComment: HDL <40 mg/dL - High Risk HDL > or = 40mg/dL- Desirable HDL >60 mg/dL - Negative Risk LDL (CALC)76<130 mg/dL08/ 10:11 AM [facility] Comment: LDL <100 mg/dL - Desirable LDL >160 mg/dL - High Risk CHOLESTEROL:HDL3.61.0 - 5.008 10:11 AM [facility] LABORATORYVERY LOW JODKUCFYEGY187 - 30 mg/dL02/05/2025 10:11 AM [facility] LABORATORYSpecimen (Source)Anatomical Location / Laterality Collection Method / VolumeCollection TimeReceived TimeBloodVenous blood / UnknownVenipuncture / Ivquunu7002/04/2025 9:14 PM EDT02/04/2025 9:24 PM EDT Narrative Authorizing ProviderResult TypeResult StatusHanvalente Valdez INSTRUMENT MAKER-CNPLAB BLOOD ORDERABLESFinal ResultPerforming OrganizationAddressCity/State/ZIP CodePhone Number [facility] [address] [place] [address], * (ABNORMAL) Comprehensive metabolic panel (02/04/2025 9:14 PM EDT)Component ValueRef RangeTest MethodAnalysis TimePerformed AtPathologist SignatureSODIUM 333665 - 146 mmol/L02/04/2025 9:55 PM [facility] POTASSIUM4.23.5 - 5.0 mmol/L02/04/2025 9:55 PM [facility]ANTONCHLORIDE10098 - 109 mmol/L02/04/2025 9:55 PM [facility]ANTONCARBON YICNMZV2074 - 32 mmol/L02/04/2025 9:55 PM EDUNIVERSITY HOSPITALS AHUJA MEDICAL CENTERANION KNP023 - 15 mmol/L02/04/2025 9:55 PM EDT [facility] CENTERBLOOD UREA LSAEUISR739 - 23 mg/dL02/04/2025 9:55 PM EDUNIVERSITY HOSPITALS AHUJA MEDICAL CENTERCREATININE1.020.70 - 1.20 mg/dL 02/04/2025 9:55 PM [facility]ONComment:METHOD TRACEABLE TO IDMS LUCHSZSPWGVDEZI405(H)65 - 99 mg/dL02/04/2025 9:55 PM EDT [facility]ITALCALCIUM9.58.5 - 10.5 mg/dL02/04/2025 9:55 PM [facility] CANTONTOTAL PROTEIN7.76.0 - 8.0 g/dL 02/04/2025 9:55 PM [facility]ANTONALBUMIN4.03.2 - 5.3 g/dL02/04/2025 9:55 PM [facility] CANTONALKALINE XJDGMMPGYLM2439 - 130 U/L02/04/2025 9:55 PM [facility]ANTONAST27<=41 U/L02/04/2025 9:55 PM [facility] ALT32<=40 U/L02/04/2025 9:55 PM [facility] BILIRUBIN,TOTAL0.50.3 - 1.2 mg/dL02/04/2025 9:55 PM [facility] CANTONEGFR Non-Race Zjqsyuzah56>=60 ml/min/1.73sq.m002/04/2025 9:55 PM [facility]ANTONComment: eGFR not reported due to non-numeric value for Creatinine. Reported eGFR is based on the CKD-EPI 2020 equation that does not use a race coefficient. Specimen (Source)Anatomical Location / LateralityCollection Method / Volume Collection TimeReceived TimeBloodVenous blood / UnknownVenipuncture / Unknown 02/04/2025 9:14 PM EDT02/04/2025 9:24 PM EDT Narrative Authorizing ProviderResult TypeResult StatusMeek Marquez MDLAB BLOOD ORDERABLES Final ResultPerforming OrganizationAddressCity/State/ZIP CodePhone Number [facility] [address] [place] [address], from Last 3 Months Insurance * Guarantor: Dirk FrankAccoelayne TypeRelation to PatientDate of BirthPhone Billing [id number] [address] [place] [id number] Advance Directives * Full Code (Latest Code Status on File) Date ActivatedDate InactivatedComments02/05/2025 12:21 AM02/05/2025 12:46 PM * Full Code Date ActivatedDate [id number]/17/2023 7:04 AM06/12/2023 7:16 PM Care Teams Team MemberRelationshipSpecialtyStart DateEnd Date Maya Carter MD [address] [place] [address] PCP - GeneralFamily Medicine08/15/17
--- OUTSIDE RECORDS SUMMARY | 2025-04-20 14:16 | XMS_ITS | CCD ---
Author Organization [facility] ion Partnership [facility] Care Team Providers Care Transport Technician Name Role Phone Cortez Varma Unavailable Ford Humphreys Admitting Unavailable Ford Humphreys Attending Unavailable Diego CASTRO Attending Unavailable Dieter Duarte Attending Unavailable KIESHA CORONEL Admitting Unavailab KIESHA Roberts Attending Unavailab FERNANDO Brooks Referring Unavailab MAYA Linda Primary Care Unavailable RAFAELA SUAREZ Consulting Unavailable KATHLEEN PATRICK Consulting Unavailable Maya Mattson MD Primary Care Provider Michele ROBERSON, Beryl Mazariegos Unavailable Maya Mattson MD Primary Care Provider [phone] Maya Mattson MD Primary Care Unavaila randi Arreola MD, Elayne Kendall Attending Unavailable Maya Mattson MD Primary Care Unavaila ble Maxwell ABRAHAM, Elayne Kendall Attending Unavailable Maya Mattson MD Primary Care Unavaila ble Maxwell ABRAHAM, Elayne Kendall Attending Unavailable Maxwell ABRAHAM, Elayne Kendall Attending Unavailable Maya Mattson MD Primary Care Unavaila ble Maxwell ABRAHAM, Elayne Kendall Attending Unavailable Maya Mattson MD Primary Care Unavaila ble MAYUR REDDY Attending Unavailable MAYA MATTSON Referring Unavailable MAYA MATTSON Primary Care Unavailable MAYUR REDDY Attending Unavailable MAYA MATTSON Referring Unavailable MAYA MATTSON Primary Care Unavailable MAYA MATTSON Primary Care Unavailable SAM PEREZ Consulting Unavailable MARY ELLEN EASLEY Admitting Unavailable RANJANA CANALES Attending Unavailable SHANNAN KAUR Attending Unavailable MAYA MATTSON Referring Unavailable MAYA MATTSON Primary Care Unavailable PALLAVI AVALOS Referring Unavailable MAYA MATTSON Primary Care Unavailable MAYA MATTSON Attending Unavailable MAYA MATTSON Attending Unavailable Allergies Allergy ClassificationReported Allergen(s)Allergy TypeDate of OnsetReaction(s) Facility (20 sources)Amoxicillin / ClavulanateDrug Noojaew21-13-2301Fuvxb (See Comments) [facility] Other (1 source)Amoxicillin / Clavulanate; Translations: [Augmentin][facility] (16 sources)AMOXICILLIN-POT CLAVULANATE; Translations: [AMOXICILLIN-POT CLAVULANATE]Propensity to adverse reactions to drug (disorder)10-27-2018 [facility] Repository (20 sources)Amoxicillin; Translations: [AMOXICILLIN]Drug Vzezrle52-45-3701[facility] (14 sources)ClavulanateDrug Fpxpsol55-11-4642MP intoleranceGolden Valley [facility] Hospital (15 sources)ezetimibe; Translations: [EZETIMIBE]Drug Ykxvbbb29-17-4655Vgwqvapk [facility] Work Phone: (3 sources)ezetimibeDrug Ucglhwg64-57-7729EibnteagEcrLfylzl Health System Medications Current Medications MedicationDrug Class(es)DatesSig (Normalized)Sig (Original)apixaban 5 mg oral tablet (20 sources)Factor Xa InhibitorStart: 01-18-2024 End: 80-35-5191dqdb 1 tablet by mouth in the morningapixaban (Eliquis) 5 MG tablet Indications: History of heart artery stent Take 1 tablet (5 mg) by mouth in the morning and 1 tablet (5 mg) before bedtime. 180 tablet 1 01/20/2025 Activeascorbic acid 100 mg oral tablet (20 sources)Vitamin Ctake 1 tablet by mouth once dailyAscorbic Acid (vitamin C) 100 MG tablet Take 100 mg by mouth Daily Activetake 5 mL by mouth in the morning ascorbic acid, vitamin C, (VITAMIN C) 500 mg/5 mL syrup Take 5 mL (500 mg total) by mouth in the morning. Activeascorbic acid 60 mg / beta carotene 5000 unt / copper sulfate 40 mg / dl-alpha tocopheryl acetate 30 unt / sodium selenite 0.04 mg / zinc oxide 40 mg oral tablet (14 sources)Vitamin Ctake 1 tablet by mouth in the morningMultiple Vitamin (Multivitamin Adult) tablet Take 1 tablet by mouth in the morning. Active atorvastatin 40 mg oral tablet (20 sources)HMG-CoA Reductase InhibitorStart: 70-76-0146jonj 1 tablet by mouth in the morningatorvastatin (Lipitor) 40 MG tablet Indications: Acute coronary syndrome (HCC) TAKE 1 TABLET BY MOUTH IN THE MORNING 90 tablet 1 03/09/2025 ActiveStart: 06-12-2023 End: 73-35-9961chme 1 tablet by mouth in the morningatorvastatin (Lipitor) 40 MG tablet Indications: Acute coronary syndrome (HCC) Take 1 tablet (40 mg) by mouth in the morning. 90 tablet 1 05/05/2024 ActiveBlood Glucose Monitoring Suppl (True Metrix Meter) w/Device kit (14 sources)Start: 37-22-5865Fmcku Glucose Monitoring Suppl (True Metrix Meter) w/Device kit USE DIRECTED to test BLOOD SUGARTHREE TIMES DAILY 06/12/2023 Activecarvedilol 25 mg oral tablet (20 sources)alpha-Adrenergic Sneha, beta-Adrenergic BlockerStart: 02-05-2025 take 1 tablet by mouth in the morningcarvedilol (Coreg) 25 MG tablet Take 25 mg by mouth in the morning and 25 mg in the evening. Take with meals. 02/05/2025 ActiveStart: 06-12-2023 End: 01-51-7851runv 1 tablet by mouth in the morningcarvedilol (Coreg) 12.5 MG tablet Indications: Atherosclerosis of samish coronary artery of samish heart without angina pectoris Take 1 tablet (12.5 mg) by mouth in the morning and 1 tablet (12.5 mg)in the evening. Take with meals. 180 tablet 1 05/27/2024 Active clopidogrel 75 mg oral tablet (20 sources)P2Y12 Platelet InhibitorStart: 20-87-0717jxjy 1 tablet by mouth in the morningclopidogrel (Plavix) 75 MG tablet Take 75 mg by mouth in the morning. 06/20/2024 ActiveStart: 06-22-2023 End: 32-94-4174ykmr 1 tablet by mouth in the morningclopidogreL (PLAVIX) 75 mg tablet Take 1 tablet (75 mg total) by mouth in the morning. 90 tablet 3 1 10/05/2023 DiscontinueddiazePAM 10 mg oral tablet (14 sources)BenzodiazepineStart: 79-39-4393vayxjZML (Valium) 10 MG tablet TAKE 1 TABLET BY MOUTH PRIOR TO PROCEDURE 01/09/2024 Activeezetimibe 10 mg oral tablet (20 sources)Dietary Cholesterol Absorption InhibitorStart: 06-22-2023 End: 79-20-8322igro 1 tablet by mouth in the morningezetimibe (ZETIA) 10 mg tablet Take 1 tablet (10 mg total) by mouth in the morning. 90 tablet 3 05/2610/20/2024 Discontinued (Therapy completed)furosemide 20 mg oral tablet (20 sources)Loop DiureticStart: 06-22-2023 End: 06-91-5480jjudrvukbo (LASIX) 20 mg tablet Take 1 tablet (20 mg total) by mouth as needed (For leg swelling). 30 tablet 11 06/22/2023 10/20/2024 Discontinued (Patient Stopped On Own)lisinopril 20 mg oral tablet (20 sources)Angiotensin Converting Enzyme InhibitorStart: 01-67-6270ctya 1 tablet by mouth once dailylisinopril 20 MG tablet Take 20 mg by mouth Daily 02/05/2025 ActiveStart: 01-18-2024 End: 54-73-8971vzub 1 tablet by mouth once dailylisinopril 10 MG tablet Indications: Benign essential hypertension Take 1 tablet (10 mg) by mouth Daily 100 tablet 1 05/05/2024 ActiveMens Multi Vitamin & Mineral - (2 sources)take 1 tablet by mouth once dailyMens Multi Vitamin & Mineral - 1 tablet Orally once daily Activemetoprolol tartrate 50 mg oral tablet (2 sources)beta-Adrenergic Blockertake 1 tablet by mouth twice daily at mealtime Metoprolol Tartrate 50 MG TAKE 1 TABLET BY MOUTH TWICE DAILY WITH MEALS Oral for 90 Activenaltrexone hydrochloride 50 mg oral tablet (20 sources)Opioid AntagonistStart: 01-24-2024 End: 98-11-6601tpiu 0.5 tablet by mouth once dailynaltrexone (Depade) 50 MG tablet Indications: Morbid obesity (CMS/HCC) Take 0.5 tablets (25 mg) by mouth Daily 45 tablet 01/24/2024 04/23/2024 Activenitroglycerin 0.3 mg sublingual tablet (20 sources)Nitrate VasodilatorStart: 45-00-6202nqza 1 tablet under the tongue every twenty-four hours as needed for painnitroglycerin (Nitrostat) 0.[address] 0.3 mg under the tongue Daily as needed for chest pain 06/12/2023 ActiveStart: 85-48-6689vwmbyinkqlrfi (NITROSTAT) 0.[address] 1 tablet (0.3 mg total) under the tongue every 5 (five) minutes as needed for chest pain. 100 tablet 3 06/12/2023 Activepantoprazole 40 mg delayed release oral tablet (20 sources)Proton Pump InhibitorStart: 06-13-2023 End: 87-76-6835ryzs 1 tablet by mouth before mealtimepantoprazole (ProtoNix) 40 MG EC tablet Indications: Gastroesophageal reflux disease without esophagitis Take 1 tablet (40 mg) by mouth in the morning. Take before meals. 90 tablet 07/09/2023 Activespironolactone 25 mg oral tablet (7 sources)Aldosterone AntagonistStart: 05-81-5581mvnk 1 tablet by mouth in the morningspironolactone (Aldactone) 25 MG tablet Take 25 mg by mouth in the morning. 02/06/2025 Activeticagrelor 90 mg oral tablet (13 sources)Start: 10-05-2023 End: 06-27-0915mtwt 1 tablet by mouth in the morning, then take 1 tablet by mouth at bedtimeticagrelor (BRILINTA) 90 mg tablet Take 1 tablet (90 mg total) by mouth in the morning and 1 tablet(90 mg total) before bedtime. 180 tablet 1 05/28/2024 06/20/2024 Discontinued (Alternate therapy)Start: 06-12-2023 End: 81-42-9245qgpr 1 tablet by mouth onceticagrelor (BRILINTA) 90 mg tablet Take 1 tablet (90 mg total) by mouth every 12 (twelve) hours. 60tablet 0 06/12/2023 06/22/2023 DiscontinuedTirzepatide (Mounjaro) 7.5 MG/0.5ML solution auto-injector (1 source)Start: 04-14-2025 End: 57-85-2271fnwinb 7.5 mg by subcutaneous injection every weekTirzepatide (Mounjaro) 7.5 MG/0.5ML solution auto-injector Indications: Type 2 diabetes mellitus without complication, without long-term current use of insulin (HCC) Inject 7.5 mg under the skin 1 (one) time per week 2 mL 1 04/14/2025 05/14/2025 ActiveTirzepatide 5 MG/0.5ML solution auto-injector (1 source)Start: 03-11-2025 End: 02-32-1461zchtch 5 mg by subcutaneous injection every weekTirzepatide 5 MG/0.5ML solution auto-injector Indications: Type 2 diabetes mellitus without complication, without long-term current use of insulin (HCC) Inject 5 mg under the skin 1 (one) time per week 2 mL 03/11/2025 04/10/2025 ActivetiZANidine 4 mg oral capsule (15 sources)Central alpha-2 Adrenergic AgonistStart: 96-46-3661hwmk 1 capsule by mouth once daily as neededtiZANidine (ZANAFLEX) 4 mg capsule Take 1 capsule (4 mg total) by mouth daily as needed. 5ActiveStart: 06-25-6190idjr 1 tablet by mouth in the morningtiZANidine (Zanaflex) 4 MG tablet Take 4 mg by mouth in the morning and 4 mg before bedtime. 08/31/2023 ActivetraMADol hydrochloride 50 mg oral tablet (6 sources)Opioid AgonistStart: 89-45-3834fsps 1 tablet by mouth three times daily as needed for paintraMADoL (ULTRAM) 50 mg tablet Take 1 tablet (50 mg total) by mouth 3 (three) times a day as neededfor pain. 01/15/2025 Activezinc gluconate 50 mg oral tablet (20 sources)take 1 tablet by mouth once dailyzinc gluconate 50 MG tablet Take 50 mg by mouth Daily Active Completed/Discontinued Medications MedicationDrug Class(es)DatesSig (Normalized)Sig (Original)[id number] 200 actuat albuterol 0.09 mg/actuat metered dose inhaler (20 sources)beta2-Adrenergic AgonistStart: 12-92-8839fsad 2 puff(s) by inhalation every six hours as neededAlbuterol Sulfate HFA 108 (90 Base) MCG/ACT 2 puffs as needed Inhalation every 6 hrs for 30 days 2018 Not-Taking End: 78-33-8101pxbd 2 puff(s) by inhalation every six hours as needed for wheezingalbuterol (PROVENTIL HFA;VENTOLIN HFA) 90 mcg/actuation inhaler Inhale 2 puffs every 6 (six) hours as needed for wheezing. 10/20/2024 Discontinued aspirin 81 mg chewable tablet (20 sources)Platelet Aggregation Inhibitor, Nonsteroidal Anti-inflammatory Drug Start: 07-12-2023 End: 48-07-6066yhwpuhl 81 mg chewable tablet Chew 1 tablet (81 mg total) and swallow in the morning. 30 tablet 0 07/12/2023 09/20/2023 DiscontinuedStart: 21-97-0217dckkivt 81 mg chewable tablet Chew 1 tablet (81 mg total) and swallow in the morning. 30 tablet 0 07/12/2023 ActiveStart: 04-56-7724htkbigm 81 mg chewable tablet Chew 1 tablet (81 mg total) and swallow in the morning. 30 tablet 0 07/12/2023 ActiveStart: 87-90-7261cklwswx 81 mg chewable tablet Chew 1 tablet (81 mg total) and swallow in the morning. 30 tablet 0 07/12/2023 Active Start: 81-29-5395fpdebdq 81 mg chewable tablet Chew 1 tablet (81 mg total) and swallow in the morning. 30 tablet 0 07/12/2023 ActiveStart: 06-13-2023 End: 79-28-7764itycysu 81 mg chewable tablet Chew 1 tablet (81 mg total) and swallow in the morning. 30 tablet 0 06/13/2023 06/22/2023 Kyllesymduug87 hr buPROPion hydrochloride 150 mg extended release oral tablet (20 sources)AminoketoneStart: 01-24-2024 End: 95-84-5359mcti 1 tablet by mouth once dailybuPROPion XL (Wellbutrin XL) 150 MG 24 hr tablet Indications: Morbid obesity (CMS/HCC) TAKE 1 TABLET BY MOUTH DAILY DO NOT CRUSH, CHEW, OR SPLIT 30 tablet 04/30/2024 09/18/2024 Discontinued End: 72-24-8678aulh 1 tablet by mouth every twenty-four hours in the morning buPROPion XL (WELLBUTRIN XL) 150 mg 24 hr tablet Take 1 tablet (150 mg total) by mouth in the morning. 10/20/2024 Discontinued (Therapy completed) dextromethorphan hydrobromide 1.5 mg/ml / pyrilamine maleate 1.5 mg/ml oral solution (2 sources)Uncompetitive R-noqfgn-Y-aspartate Receptor Antagonist, Sigma-1 AgonistStart: 84-51-2766Hctxbp DM 7.5-7.5 MG/5ML 10 ml Orally every 6-8 hours PRN for 8 days May, Not-TakingDULoxetine 30 mg delayed release oral capsule (7 sources)Serotonin and Norepinephrine Reuptake InhibitorStart: 02-21-2023 End: 20-93-9340qsbc 1 capsule by mouth in the morningDULoxetine (Cymbalta) [address] capsule Take 30 mg by mouth in the morning and 30 mg before bedtime. 02/21/2023 09/18/2024 Discontinuedfluticasone propionate 0.05 mg/actuat metered dose nasal spray (2 sources)CorticosteroidStart: 80-54-7096aktf 1 spray(s) nasal route once daily Fluticasone Propionate 50 MCG/ACT 1 spray in each nostril Nasally Once a day for 30 day(s) May, Not-TakingKetorolac (2 sources)Nonsteroidal Anti-inflammatory Drug, Cyclooxygenase InhibitorStart: 97-44-5003Xexybgx per 15 mg Jan, 60 mg24 hr metFORMIN hydrochloride 500 mg extended release oral tablet (20 sources)BiguanideStart: 01-24-2024 End: 91-56-7020obxn 1 tablet by mouth every twenty-four hours at mealtime metFORMIN XR (Glucophage-XR) 500 MG 24 hr tablet Indications: Type 2 diabetes mellitus without complication, without long-term current use of insulin ([facility]) Take 1 tablet (500 mg) by mouth in the evening. Take with meals Do not crush, chew, or split. 30 tablet 11 01/24/2024 09/18/2024 Discontinued End: 38-22-0713jbtj 1 tablet by mouth once daily at breakfastmetFORMIN (GLUCOPHAGE) 500 mg tablet Take 1 tablet (500 mg total) by mouth daily with breakfast. 10/20/2024 Discontinued (Therapy completed)montelukast 10 mg oral tablet (2 sources)Leukotriene Receptor Antagonisttake 1 tablet by mouth every twenty- four hoursSingulair 10 MG 1 tablet in the evening Orally Once a day for 30 day(s) prn Not-Takingpregabalin 50 mg oral capsule (14 sources)Start: 06-05-2024 End: 78-65-0825xhtw 1 capsule by mouth in the morning, then take 1 capsule by mouth in the evening, then take 1 capsule by mouth at bedtimepregabalin (Lyrica) 50 MG capsule Take 50 mg by mouth in the morning and 50 mg in the evening and 50 mg before bedtime. 06/05/2024 02/12/2025 DiscontinuedStart: 03-19-2024 pregabalin (LYRICA) 25 mg capsule Take 1 capsule (25 mg total) by mouth in the morning and 1 capsule (25 mg total) at noon and 1 capsule (25 mg total) before bedtime. 03/19/2024 ActiveTirzepatide (Mounjaro) 2.5 MG/0.5ML solution auto-injector (5 sources)Start: 02-12-2025 End: 39-63-3468aiivzz 2.5 mg by subcutaneous injection every weekTirzepatide (Mounjaro) 2.5 MG/0.5ML solution auto-injector Indications: Type 2 diabetes mellitus without complication, without long-term current use of insulin ([facility]) , BLAIR (obstructive sleep apnea) Inject 2.5 mg under the skin 1 (one) time per week 2 mL 02/12/2025 03/11/2025 DiscontinuedStart: 02-12-2025 End: 89-49-7193vieoar 2.5 mg by subcutaneous injection every weekTirzepatide (Mounjaro) 2.5 MG/0.5ML solution auto-injector Indications: Type 2 diabetes mellitus without complication, without long-term current use of insulin (HCC) , BLAIR (obstructive sleep apnea) Inject 2.5 mg under the skin 1 (one) time per week 2 mL 02/12/2025 03/14/2025 ActiveStart: 09-18-2024 End: 65-67-5059iyqmms 2.5 mg by subcutaneous injection every weekTirzepatide (Mounjaro) 2.5 MG/0.5ML solution auto-injector Indications: Type 2 diabetes mellitus without complication, without long-term current use of insulin (CMS/HCC) Inject 2.5 mg under the skin 1 (one) time per week 2 mL 09/18/2024 10/18/2024 Active Problems Active Problems Problem ClassificationProblemDateDocumented DateEpisodic/ChronicAnxiety disorders (20 sources)Anxiety; Translations: [Anxiety disorder, unspecified]Onset: 595176-18-4088JquvrvmXhjypapr atherosclerosis and other heart disease (20 sources)Acute ischemic heart disease, unspecified; Translations: [Unstable angina]Onset: 06-09-2023 Resolved: 030545-27-9765DnlrdtdKbfisbck atherosclerosis and other heart disease (1 source)Coronary angioplasty status; Translations: [Coronary angioplasty status]Onset: 43-93-0670DygoiukrCeltllvp mellitus with complications (1 source)Type 2 diabetes mellitus with other specified complication; Translations: [Type 2 diabetes mellituswith other specified complication]Onset: 14-70-7303MnahfykCldyxbiw mellitus without complication (20 sources)Type 2 diabetes mellitus without complication; Translations: [Type 2 diabetes mellitus without complications]Onset: 444187-69-1429Butqqxr Disorders of lipid metabolism (20 sources)Mixed hyperlipidemia; Translations: [Mixed hyperlipidemia]Onset: 108714-10-7327RnaupnjWuopicxmfy disorders (20 sources)Gastroesophageal reflux disease without esophagitis; Translations: [Gastro-esophageal reflux disease without esophagitis]Onset: 11-11-2015 94-99-0361NxiyptlWskgcskja hypertension (20 sources)Benign essential hypertension; Translations: [Essential (primary) hypertension]Onset: 902263-22-3350KnwqeolRlcdy disorders and dislocations; trauma-related (14 sources)Derangement of left knee; Translations: [Unspecified internal derangement of left knee]Onset: 043674-39-5819BaohodyAmikohcmpef chest pain (11 sources)Chest pain, unspecified; Translations: [Chest pain]Onset: 06-10-2023 20-12-6375WqwxiollNbarqyrxllmstq (20 sources)Idiopathic osteoarthritis; Translations: [Primary osteoarthritis, unspecified site]Onset: 432909-67-9296KecykytCehuv connective tissue disease (2 sources)Triggering of digit; Translations: [Trigger finger, left middle finger]28-19-2781XasbzhlcPamga liver diseases (14 sources)Steatosis of liver; Translations: [Fatty (change of) liver, not elsewhere classified]Onset: 729867-72-9558DlzbbcuMkwnf lower respiratory disease (1 source)Shortness of breathOnset: 96-98-8211TxqtmuolXscgb non-traumatic joint disorders (2 sources)Bilateral pain of joint of hands; Translations: [Pain in joints of right hand]59-76-4600OqnidddyLhkaz nutritional; endocrine; and metabolic disorders (20 sources)Morbid obesity; Translations: [Morbid (severe) obesity due to excess calories]Onset: 460308-86-8190ZafamwzOiqhd nutritional; endocrine; and metabolic disorders (20 sources)Body mass index 40+ - severely obese; Translations: [Body mass index (BMI) 45.0-49.9, adult]Onset: 251138-64-4943WbeiigeRwkgf nutritional; endocrine; and metabolic disorders (2 sources)Obesity caused by energy imbalance; Translations: [Morbid (severe) obesity due to excess calories]49-83-8019CmlzbhjNhqonnkfx; thrombophlebitis and thromboembolism (20 sources)Chronic deep venous thrombosis of lower extremity; Translations: [Chronic embolism and thrombosis of unspecified deep veins of unspecified lower extremity]Onset: 076210-43-4086IeenqviPnlcmxnq codes; unclassified (20 sources)Obstructive sleep apnea syndrome; Translations: [Obstructive sleep apnea (adult) (pediatric)]Onset: 170603-58-7570ZtjzkjhPnizvmblolzq (1 source)Acute cornary syndromeOnset: 72-75-3908Hnenasgdjaou (1 source)Hospital Follow-upOnset: 49-18-0459Dhcmjmjfyemz (1 source)blood pressure high, left chest painOnset: 02-04-2025 Past or Other Problems Problem ClassificationProblemDateDocumented DateEpisodic/ChronicAbdominal hernia (20 sources)Recurrent hernia of anterior abdominal wall; Translations: [Incisional hernia without obstruction or gangrene]Onset: EpisodicChronic obstructive pulmonary disease and bronchiectasis (14 sources)Bronchitis; Translations: [Bronchitis, not specified as acute or chronic]Onset: 476054-27-6762XukgjukkYumcl connective tissue disease (14 sources)Abnormal posture; Translations: [Abnormal posture]Onset: 11-16-2022 71-54-4174OotltbmtKombw lower respiratory disease (3 sources)Dyspnea; Translations: [Shortness of breath]26-09-3257Svuowyjf Phlebitis; thrombophlebitis and thromboembolism (2 sources)Acute embolism and thrombosis of unspecified deep veins of left lower extremity; Translations: [H/O: Deep vein thrombosis]Onset: 08-22-2021 Resolved: 14-23-7892OhnplrarMnzoocnyp and history of mental health and substance abuse codes (14 sources)H/O: psychiatric disorder; Translations: [Personal history of other mental and behavioral disorders]Onset: 486113-59-8200EylujizjPkrjrploobx; intervertebral disc disorders; other back problems (20 sources)Spasm of muscle of lower back; Translations: [Muscle spasm of back] Onset: 511601-55-2706ViukbcvcDxvonfzeiert (20 sources)Onset: Results Test NameValueInterpretationReference RangeFacilityBASIC METABOLIC PANELon 73-06-5157Wipvp gap [Moles/Vol]6 mmol/LNormal5-15[facility] Comment on above:Performed By: #### PTT #### [address] [place] [address] VIRCalcium [Mass/Vol]9.3 mg/dLNormal8.5-10.5PRiverside Methodist HospitalComment on above:Performed By: #### PTT #### [address] [place] [address] VIRChloride [Moles/Vol]105 mmol/HNshwbg56-161KdbVwwykfNortheast Baptist HospitalComment on above:Performed By: #### PTT #### [address] [place] [address] VIRCO2 [Moles/Vol]30 mmol/DQmnvrv31-62HqtAhzyzzRiverside Methodist HospitalComment on above:Performed By: #### PTT #### [address] [place] [address] VIRCreatinine [Mass/Vol]1.07 mg/dLNormal0.60-1.30ProNortheast Baptist HospitalComment on above:Result Comment: METHOD TRACEABLE TO IDMS STANDARDPerformed By: #### PTT #### [address] [address] VIRGFR/1.73 sq M.predicted among non-blacks MDRD (S/P/Bld) [Vol rate/Area]81 mL/min/{1.73_m2}Normal>=60ProNortheast Baptist HospitalComment on above:Result Comment: Reported eGFR is based on the CKD-EPI 2021 equation that does not use a race coefficient. EGFR not calculated due to patient's gender not being defined.Performed By: #### PTT #### [facility] ([address] [place] [address] VIRGlucose [Mass/Vol]125 mg/qEUyyg95-26StaDggabqNortheast Baptist HospitalComment on above:Performed By: #### PTT #### [address] [place] [address] VIRPotassium [Moles/Vol]4.6 mmol/LNormal3.5-5.0ProNortheast Baptist HospitalComment on above:Performed By: #### PTT #### [facility] ([address] [place] [address] VIRSodium [Moles/Vol]141 mmol/XSdjblv060-211FyuFfzbla Fremont HospitalComment on above:Performed By: #### PTT #### [facility] ([address] [place] [address] VIRUrea nitrogen [Mass/Vol]17 mg/dLNormal5-23ProNortheast Baptist HospitalComment on above:Performed By: #### PTT #### [facility] ([address] [place] [address] VIRLaboratory - Hematology and Cell countson 27-80-4802EkJ0k (Bld) [Mass fraction]7 %[facility]OMS HealthcareNo Panel Informationon 07-75-2430JVBN HealthcareBEDSIDE GLUCOSEon 12-41-8966Qwxsvnl [Mass/Vol]130 mg/hLZsyj34-36 [facility] HospitalComment on above:Performed By: #### PTT #### [facility] ([address] [place] [address] VIRTROPONIN I, HIGH SENSITIVITYon 98-57-6416KTBBDIDX I, HIGH ROVVXTFSICB65 ng/LNormal<21ProNortheast Baptist HospitalComment on above:Performed By: #### PTT #### [facility] ([address] [place] [address] VIRXR CHEST 1 VWon 33-77-8478FC CHEST 1 VWXR CHEST 1 VW XR CHEST 1 VW HISTORY: Chest pain [...] by Félix Munoz MD on 02/05/2025 1:43 AMNormalProNortheast Baptist HospitalAPTTon 73-07-5779bNQO Coag (Bld) [Time]37 vVmybem93-21OpvMnbfanNortheast Baptist HospitalComment on above:Performed By: #### PTT #### [facility] ([address] [address] VIRB-TYPE NATRIURETIC PEPTIDEon 94-77-7517Ddpthcxmvsp peptide B (Bld) [Mass/Vol]39 pg/mLNormal<=100ProMedica Memorial HospitalComment on above: Performed By: #### BNP #### [facility] ([address] [address] VIRCBC WITH AUTO DIFFERENTIALon 57-81-3243OPLFUVWMU ABSOLUTE COUNT (10*3/UL) BY AUTOMATED COUNT0.0 10*3/uLNormal0.0-0.2Pro[facility]clair Medical CenterComment on above:Performed By: #### CBCA #### [facility] ([address] [address] VIRBASOPHILS RELATIVE PERCENT BY AUTOMATED COUNT0.5 %Normal ProMedica Memorial HospitalComment on above:Performed By: #### CBCA #### [facility] ([address] [address] VIRCELLAVISION DIFFERENTIAL TYPEAUTOMATED DIFFERENTIALNormal [facility]Medica Memorial HospitalComment on above:Performed By: #### CBCA #### [facility] ([address] [address] VIREosinophils (Bld) [#/Vol]0.2 10*3/uLNormal0.0-0.4ProMedica Memorial HospitalComment on above:Performed By: #### CBCA #### [facility] ([address] [place] [address] VIREOSINOPHILS RELATIVE PERCENT BY AUTOMATED COUNT2.3 %Normal [facility] Memorial HospitalComment on above:Performed By: #### CBCA #### [facility] ([address] [place] [address] VIRErythrocyte distribution width (RBC) [Ratio]13.9 %Normal 11.5-15ProNortheast Baptist HospitalComment on above:Performed By: #### CBCA #### [facility] ([address] [place] [address] VIRHematocrit (Bld) [Volume fraction]42.4 %Ztgqwl57-79 [facility] Memorial HospitalComment on above:Performed By: #### CBCA #### [facility] ([address] [place] [address] VIRHemoglobin (Bld) [Mass/Vol]14.4 g/bRKchkxb94-56EqkGmhdkqProMedica Memorial HospitalComment on above:Performed By: #### CBCA #### [facility] ([address] [place] [address] VIRLYMPHOCYTES ABSOLUTE COUNT (10*3/UL) BY AUTOMATED COUNT2.0 10*3/uLNormal1.0-3.5Pro[facility]clair Medical CenterComment on above:Performed By: #### CBCA #### [facility] ([address] [place] [address] VIRLYMPHOCYTES RELATIVE PERCENT BY AUTOMATED COUNT22.7 %Normal Pro[facility]ica Memorial HospitalComment on above:Performed By: #### CBCA #### [facility] ([address] [place] [address] VIRMCH (RBC) [Entitic mass]29.5 npTdkmza14-83NhzKxrestNortheast Baptist HospitalComment on above:Performed By: #### CBCA #### [facility] ([address] [place] [address] VIRMCHC (RBC) [Mass/Vol]34.0 g/uRQnrtlk64-97NitPrzvgbNortheast Baptist HospitalComment on above:Performed By: #### CBCA #### [facility] ([facility]) [address] [place] [address]. [place] [address] VIRMCV (RBC) [Entitic vol]87 tACmvlnj48-170FujBtfevv [facility]remont HospitalComment on above:Performed By: #### CBCA #### [facility] ([address] [place] [address] VIRMONOCYTES ABSOLUTE COUNT (10*3/UL) BY AUTOMATED COUNT0.7 10*3/uLNormal0.0-0.9ProNortheast Baptist HospitalComment on above:Performed By: #### CBCA #### [facility] ([address] [place] [address] VIRMONOCYTES RELATIVE PERCENT BY AUTOMATED COUNT8.1 %Normal Pro[facility]ica Memorial HospitalComment on above:Performed By: #### CBCA #### [facility] ([address] [place] [address] VIRNEUTROPHILS ABSOLUTE COUNT BY AUTOMATED COUNT5.9 10*3/uL Normal1.5-6.6ProNortheast Baptist HospitalComment on above:Performed By: #### CBCA #### [facility] ([address] [place] [address] VIRNEUTROPHILS RELATIVE PERCENT BY AUTOMATED COUNT66.4 %Normal Pro[facility] Memorial HospitalComment on above:Performed By: #### CBCA #### [facility] ([address] [place] [address] VIRPlatelet mean volume (Bld) [Entitic vol]7.1 fLNormal7-12 [facility] Memorial HospitalComment on above:Performed By: #### CBCA #### [facility] ([address] [place] [address] VIRPlatelets (Bld) [#/Vol]288 10*3/nWIolfom929-651IjiKdgzlz [facility] HospitalComment on above:Performed By: #### CBCA #### [facility] ([address] [place] [address] VIRRBC COUNT4.87 X10E12/LNormal4.1-5.7ProNortheast Baptist HospitalComment on above:Performed By: #### CBCA #### [facility] ([address] [place] [address] VIRWBC (Bld) [#/Vol]8.9 10*3/uLNormal4-11ProNortheast Baptist HospitalComment on above:Performed By: #### CBCA #### [facility] ([address] [place] [address] VIRCOMPREHENSIVE METABOLIC PANELon 99-17-5449Giwjgoo [Mass/Vol]4.0 g/dLNormal3.2-5.3ProMedSanta Paula HospitalComment on above: Performed By: #### CMP #### [facility] ([address] [place] [address] VIRALP [Catalytic activity/Vol]94 U/WLiahci00-783IvtZnxfabNortheast Baptist HospitalComment on above:Performed By: #### CMP #### [facility] ([address] [place] [address] VIRALT [Catalytic activity/Vol]32 U/LNormal<=40ProNortheast Baptist HospitalComment on above:Performed By: #### CMP #### [facility] ([address] [place] [address] VIRAnion gap [Moles/Vol]10 mmol/LNormal5-15ProNortheast Baptist HospitalComment on above:Performed By: #### CMP #### [facility] ([address] [place] [address] VIRAST [Catalytic activity/Vol]27 U/LNormal<=41ProNortheast Baptist HospitalComment on above:Performed By: #### CMP #### [facility] ([address] [place] [address] VIRBilirubin [Mass/Vol]0.5 mg/dLNormal0.3-1.2PRiverside Methodist HospitalComment on above:Performed By: #### CMP #### [address] [place] [address] VIRCalcium [Mass/Vol]9.5 mg/dLNormal8.5-10.5PRiverside Methodist HospitalComment on above:Performed By: #### CMP #### [address] [place] [address] VIRChloride [Moles/Vol]100 mmol/MGpwktd44-209RuwPxgbbtNortheast Baptist HospitalComment on above:Performed By: #### CMP #### [facility] ([address] [place] [address] VIRCO2 [Moles/Vol]29 mmol/OEtzqoy40-00YzsIbptanRiverside Methodist HospitalComment on above:Performed By: #### CMP #### [facility] ([address] [place] [address] VIRCreatinine [Mass/Vol]1.02 mg/dLNormal0.70-1.20ProNortheast Baptist HospitalComment on above:Result Comment: METHOD TRACEABLE TO IDMS STANDARDPerformed By: #### CMP #### [facility] [address] [place] [address] VIRGFR/1.73 sq M.predicted among non-blacks MDRD (S/P/Bld) [Vol rate/Area]86 mL/min/{1.73_m2}Normal>=60ProNortheast Baptist HospitalComment on above:Result Comment: eGFR not reported due to non-numeric value for Creatinine. Reported eGFR is based on the CKD-EPI 2020 equation that does not use a race coefficient.Performed By: #### CMP #### [facility] ([address] [place] [address] VIRGlucose [Mass/Vol]128 mg/uVUvxm07-25UtcMdwguyNortheast Baptist HospitalComment on above:Performed By: #### CMP #### [address] [place] [address] VIRPotassium [Moles/Vol]4.2 mmol/LNormal3.5-5.0ProNortheast Baptist HospitalComment on above:Performed By: #### CMP #### [address] [place] [address] VIRProtein [Mass/Vol]7.7 g/dLNormal6.0-8.0ProNortheast Baptist HospitalComment on above:Performed By: #### CMP #### [address] [place] [address] VIRSodium [Moles/Vol]139 mmol/NYaamju421-537OqhFbnwfu [facility]remont HospitalComment on above:Performed By: #### CMP #### [address] [place] [address] VIRUrea nitrogen [Mass/Vol]16 mg/dLNormal5-23ProNortheast Baptist HospitalComment on above:Performed By: #### CMP #### [address] [place] [address] VIRD-DIMERon 02-04-2025D DIMER<^707Vxfeal6-902ZihEmwzrxProMedica Memorial HospitalComment on above:Result Comment: Results <255 ng/mL DDU: The presensence of a VTE can safely be excluded with a negative D-Dimer result and Wells score. A negative result doesn't exclude the possibility of DIC. The test should be repeated along with other diagnostic tests if the patient's symptoms persist or worsen.Performed By: #### DDMR #### [facility] ([address] [address] VIRLIPID PROFILEon 95-27-4189Gtdjfsjtcxn [Mass/Vol]135 mg/dL Nsi698-362FyiQkrhryNortheast Baptist HospitalComment on above:Performed By: #### PTT #### [facility] ([address] [address] VIRCholesterol in HDL [Mass/Vol]38 mg/dLLow>39ProNortheast Baptist HospitalComment on above:Result Comment: HDL <40 mg/dL - High Risk HDL > or = 40mg/dL- Desirable HDL >60 mg/dL - Negative RiskPerformed By: #### PTT #### [facility] ([address] [address] VIRCholesterol in LDL [Mass/Vol]76 mg/dLNormal<130ProNortheast Baptist HospitalComment on above:Result Comment: LDL <100 mg/dL - Desirable LDL >160 mg/dL - High RiskPerformed By: #### PTT #### [facility] ([address] [address] VIRCHOLESTEROL:HDL3.2Ravucf7.0-5.0[facility] Comment on above:Performed By: #### PTT #### [facility] ([address] [address] VIRTriglyceride [Mass/Vol]107 mg/hXLdolyi27-459NuaMcldqv Elliott HospitalComment on above:Performed By: #### PTT #### [facility] ([address] [place] [address] VIRVERY LOW VHFAYLLMGKW22 mg/dLNormal0-30ProMercy Health Defiance Hospital HospitalComment on above:Performed By: #### PTT #### [facility] ([address] [place] [address] VIRMAGNESIUMon 70-39-1531Aucnekhwd [Mass/Vol]2.1 mg/dLNormal 1.8-2.6ProMercy Health Defiance Hospital HospitalComment on above:Performed By: #### MG #### [facility] ([address] [place] [address] VIRPROTIME AND INRon 77-10-1013JTB2.5Lqxodb1.9-1.2[facility] HospitalComment on above:Performed By: #### PINR #### [facility] ([address] [place] [address] VIRPT Coag (PPP) [Time]13.1 sNormal9.8-13.2PRiverside Methodist HospitalComment on above:Performed By: #### PINR #### [facility] ([address] [place] [address] VIRTROP I, HIGH SENSITIVITY 1 HOURon 39-68-6946QTLUIIKJ I, HIGH EFYESBKQTSS58 ng/LNormal<21ProMercy Health Defiance Hospital HospitalComment on above: Performed By: #### TNIHS1 #### [facility] ([address] [place] [address] VIRTROPONIN I, HIGH SENSITIVITY 0 HOURon 17-54-8227CWMLLWME I, HIGH RJHPLPFPBJC47 ng/LNormal<21ProMercy Health Defiance Hospital HospitalComment on above: Performed By: #### TNIHS0 #### [facility] ([address] [address] VIRLaboratory - Hematology and Cell countson 68-36-8258ZuK3z (Bld) [Mass fraction]6.6 %NOMS HealthcareNo Panel Informationon 44-76-3383PJPF HealthcarePOCT EKGon 55-79-5257ElqBbfigx Health SystemGlucose Glucometer (BldC) [Mass/Vol]on 01-60-6905Lvmtdda [Mass/Vol]103 mg/dYLfqm12 - 99 mg/dLPremier Health Atrium Medical Center SystemInterpretation and review of laboratory resultsAbnoClarion Psychiatric CenterGlucose Glucometer (BldC) [Mass/Vol]on 55-69-3463Ceqddpj [Mass/Vol]120 mg/aWBjuw85 - 99 mg/dLUpper Valley Medical Center Interpretation and review of laboratory resultsAbSt. Francis Medical CenterGlucose Glucometer (BldC) [Mass/Vol]on 04-44-9979Tgtndgu [Mass/Vol]105 mg/hFIvmn28 - 99 mg/dLPremier Health Atrium Medical Center SystemInterpretation and review of laboratory resultsAbnoClarion Psychiatric CenterGlucose [Mass/Vol]121 mg/xXUxdb13 - 99 mg/dLUpper Valley Medical Center Interpretation and review of laboratory resultsAbMilwaukee County General Hospital– [place][note 2] SystemGlucose Glucometer (BldC) [Mass/Vol]on 91-59-7254Tyxckex [Mass/Vol]132 mg/nJOpkr95 - 99 mg/dLPremier Health Atrium Medical Center SystemInterpretation and review of laboratory resultsAbnoOakleaf Surgical Hospital SystemGlucose Glucometer (BldC) [Mass/Vol]on 89-99-7215Jcgvtkr [Mass/Vol]144 mg/nMSyya25 - 99 mg/dLUpper Valley Medical CenterGlucose [Mass/Vol]102 mg/vDOwnc32 - 99 mg/dLPremier Health Atrium Medical Center SystemInterpretation and review of laboratory results AbnormalEdgerton Hospital and Health Services SystemGlucose Glucometer (BldC) [Mass/Vol]on 66-24-2867Qtyknsf [Mass/Vol]136 mg/dCBkyf81 - 99 mg/dLPremier Health Atrium Medical Center SystemInterpretation and review of laboratory resultsAbnoOakleaf Surgical Hospital SystemGlucose Glucometer (BldC) [Mass/Vol]on 98-98-1412Inqvyha [Mass/Vol]115 mg/rGXebd23 - 99 mg/dLUpper Valley Medical Center Interpretation and review of laboratory resultsAbnoGundersen Boscobel Area Hospital and ClinicsGlucose [Mass/Vol]152 mg/nBNvge24 - 99 mg/dLPremier Health Atrium Medical Center SystemInterpretation and review of laboratory resultsAbnoOakleaf Surgical Hospital SystemGlucose Glucometer (BldC) [Mass/Vol]on 77-40-6808Ywbmono [Mass/Vol]118 mg/iVHlil57 - 99 mg/dLUpper Valley Medical Center Interpretation and review of laboratory resultsAbSt. Francis Medical CenterGlucose [Mass/Vol]142 mg/pZNcsp17 - 99 mg/dLUpper Valley Medical CenterInterpretation and review of laboratory resultsAbFriends HospitalGlucose Glucometer (BldC) [Mass/Vol]on 74-51-2815Gavspyl [Mass/Vol]130 mg/gEMmkb69 - 99 mg/dLPremier Health Atrium Medical Center System Glucose [Mass/Vol]107 mg/lAYarh85 - 99 mg/dLUpper Valley Medical Center Interpretation and review of laboratory resultsAbSt. Francis Medical CenterGlucose Glucometer (BldC) [Mass/Vol]on 13-47-5466Wcidqxx [Mass/Vol]93 mg/dL65 - 99 mg/dLEdgerton Hospital and Health Services System Glucose [Mass/Vol]180 mg/dMOutj29 - 99 mg/dLUpper Valley Medical Center Interpretation and review of laboratory resultsAbSt. Francis Medical CenterGlucose Glucometer (BldC) [Mass/Vol]on 01-81-9574Xtnwikg [Mass/Vol]115 mg/bGIzmi85 - 99 mg/dLUpper Valley Medical CenterInterpretation and review of laboratory resultsAbnoClarion Psychiatric CenterGlucose [Mass/Vol]129 mg/jBOxvs45 - 99 mg/dLPremier Health Atrium Medical Center System Interpretation and review of laboratory resultsAbSt. Francis Medical CenterBNPon 12-32-7075XkzJjwtjfTriHealth McCullough-Hyde Memorial HospitalProgress Note-Nurseon 13-43-9285Myeuhdcj Note-NursePt called back stating he is feeling a lot better and would like to hold off on the neruo consult for right now.[facility] HospitalProgress Note-NurseMessage left on patient's VM that he was approved for Neurology Consult and to call back if he wanted to go ahead with that visit.[facility] Rita's Medical CenterWorkers' Comp Officeon 09-92-9881Qotzoof' Comp Office [id number]#1.00CD:127NormMadison HealthCoding Summary.on 30-11-7504Eujiyj Summary. CD:[id number]:[id number]+PGhlYWQ+XC8SRCSsG74aiVOvqY9GA7aJGB8EKAZHBDRFLA8ZZY4pi XR7GHfoD7QelqWm [file] ZTog (more content not included)...[facility] Medical CenterWorkroosevelt general hospital' Comp Officeon 72-21-2845Xcjrgpu' Comp Office [id number]#1.00CD:127NormTrinity Health System East Campus Comp [id number]#1.00CD:127 [facility]' Comp Office [id number]#1.00CD:127NormMadison HealthConsenthe valley hospital 75-35-3053Gmdojtv [id number]#1.00CD:127[facility] Rita's Medical CenterProgress Note-Physicianon 16-51-6825Notbrhwu Note-PhysicianPatient: DIRK FRANK Age: 56 years Sex: Male : 1965 Associated Diagnoses: None Author: Ford Humpherys DO Complaint 04/13/2022 10:24 EDT pt bent over to open a door and hit his head on the door, pt states he felt dizziness, pain and nausea after incident , treated at [facility] ER and CT scan was don, pt is on Eliquis, today pt states he has a mild headache and is taking Tylenol, pt has not been History of Present Illness CC confirmed. 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 ED evaluation was unremarkable aside from patient [...] (APR 13 10:24) SBP H 160mmHg (APR 13:24) DBP H 100mmHg (APR 13:) Constitutional: Vital [...] Impression and Plan Diagnosis Abrasion of scalp (KNE14-RX S00.01XA, Working, Medical). Acute head injury (EMB21-GQ S09.90XA, Working, Medical). Concussion (NVO37-XF S06.0XAA, Working, Medical). two days post-injury continues [...] a patient with a possible concussion. f/u TBDNMarietta Memorial HospitalComment on above:Result Comment: Electronically Signed By: Ford Humphreys DO.fartun\Date and Time Signed: 04/13/22 16:58 EDTDischarge Instructionson 43-78-6162Kpwhplquc Instructions [id number]#1.00CD:127[facility] Traumaon 75-58-2516JW Trauma [id number]#1.00CD:[address] [place], [place] [address]Workers Comp Formson 20-88-9159Nfisjxc Comp Forms [id number]#1.00CD:[address] [place], [place] [address]CT Head or Brain w/o Contraston 15-65-0940RK Head or Brain w/o Contrast Exam Date/Time: [...] Chris Bueno MD Transcribed by: MEHNAZ Technologist: [facility] HospitalCT Spine Cervical w/o Contraston 94-54-9978XF Spine Cervical w/o ContrastExam Date/Time: 04/11/2022 18:46 EDT Reason for Exam: [...] Chris Bueno MD Transcribed by: MEHNAZ Technologist: [facility] HospitalCapillary Glucose POCon 90-25-3266Lawyeni [Mass/Vol]104 mg/eKVtos00-39LzbkquCommunity Memorial HospitalComment on above:Result Comment: Cleaned MeterPerformed By: #### [id number] ####[facility] [address] [place], [place] [address]Bcycszi for Treatmenton 92-13-1892Qhfmgrl for Treatment [id number]#1.00CD:127NormalFisher R Adams [facility] Clinical Summaryon 06-36-9697UQ Clinical Summary [address] [address] ED Clinical Summary Person Information Name: DIRK FRANK Velma/[facility] Age: 56 Years : 1965 Sex: Male Language: Danish PCP: MAYA MATTSON MD Marital Status: Phone: [phone] Visit Id: Visit Reason: Dizziness; Trauma - minor; Closed head injury without LOC; FELL- HIT HEAD-NO LOC/DIZZY/EXTREME HEADACHE Speciality: Acuity: 3 Enc [...] 19:44:56 04/11/2022 19:44:56 04/11/2022 19:44:56 ADDRESS: [address] [place] [address] [facility] DOC NOTES: Addendum by Diteer Duarte DO on April 11, 2022 19:07:31 EDT MEDICAL INFORMATION: Prescriptions Given: Medications to Continue with No Changes Other Medications metoprolol (metoprolol 25 mg ER Tab) 1 Tablets By Mouth 2 times a day. PATIENT EDUCATION INFORMATION: Instructions: Head Injury, Adult; Abrasion, Thgj-bc-Niav Follow up: With: Address: When: T[employer] Twitter Dashboard: [facility] [phone] In 3 days 04/14/2022 With: Address: When: MAYA MATTSON [facility] [place], [place] [id number] Business (1) In 3 days DIAGNOSIS: Head injury; Scalp abrasionNormalFisher Manuel Medical CenterED Note-Physicianon 66-51-9588LV Note-PhysicianBasic Information Time Seen: Dieter Duarte DO 04/11/2022 17:17 Chief Complaint pt reports hitting head at work, no loc. on thinners. pt states he feels dizyz now. lac to head History of Present Illness 56 male presents emergency department with head injury. Patient states just prior to arrival [id number] he was at work when he bent [...] other associated symptoms no other prior treatments orcomplaints. Family: Reviewed and noncontributory Social: lives at [...] (S00.01XA: Abrasion of scalp, initial encounter) Orders: tetanus/diphtheria/pertussis, acel (Tdap), 0.5 mL, Injection, Intramuscular- Immunization, Once, Stop date 04/11/22 17:22:00 EDT, STAT, Start date 04/11/22 17:22:[address] Head or Brain w/o Contrast CT Spine Cervical w/o Contrast Medications Administered Given tetanus/diphtheria/pertussis, acel (Tdap) 5 units-2.5 units-18.5 mcg/0.5 mL intramuscular suspension, 0.5 mL, Intramuscular-Immunization diphtheria/pertussis, acel/tetanus adult, Intramuscular-Immunization Disposition Plan Discharge Prescription List Prescriptions No active prescription medications Follow-up No qualifying data available Problem List/Past Medical History Ongoing No qualifying data Historical No qualifying data Medications Inpatient tetanus/diphtheria/pertussis, acel (Tdap) 5 units-2.5 units-18.5 mcg/0.5 mL intramuscular suspensio, 0.5 mL, Intramuscular-Immunization, Once Home metoprolol 25 mg ER Tab, [...] return to ER symptoms should change or worsen.[facility] Rita's Medical CenterComment on above:Result Comment: Electronically Signed By: Dieter Duarte DO\.fartun\Date and Time Signed: 04/11/22 19:27EDTED Patient Education Noteon 17-62-6387WF Patient Education Note Dermatology Abrasion An abrasion is a cut or a scrape on the surface of your skin. An abrasion does not go through all the layers of your skin. It is important to take good care of your abrasion to prevent infection. Follow these instructions at home: Medicines ? Take or apply jdkk-vkq-llerpmb and prescription medicines only as told by your doctor. ? If you were prescribed an antibiotic medicine, apply it as told by your doctor. Do not stop usingthe antibiotic even if you start to feel [...] cannot use soap and water, use hand lead javascript developer. ? Change your bandage as told by [...] 11/27/2008 Document Revised: 05/24/2018 Document Reviewed: 01/31/2018 [email or web address] Patient Education ? 2019 [employer]. Neurology Head Injury, Adult There are many [...] allow the brain t (more content not included)...DyanGalion Community Hospitalus [facility] Patient Summaryon 92-28-2297HI Patient Summary [address] [address] Patient Discharge Instructions Person Information Name: DIRK FRANK Age: 56 Years Arrival Date: 04/11/2022 17:11:51 Discharge Diagnosis: Head injury; Scalp abrasion Primary Care Physician: MAYA MATTSON MD Provider Information Primary Provider: Dieter Duarte DO Advanced Decontamination Technician:None The exam and treatment you received in the Emergency Department were for an urgent problem and are not intended as complete care. It is important that you follow up with a doctor, nurse practitioner,or physician?s syrup mixer assistant for ongoing care. If your symptoms become worse or you do not improve as expected and you are unable to reach your usual health care provider, you should return to the Emergency Department. We are available 24 hours a day. DIRK FRANK has been given the following list of patient education materials, prescriptions and follow-up instructions: Follow-up Instructions: With: Address: When: [facility]: [facility] [phone] In 3 days 04/14/2022 With: Address: When: MAYA MATTSON [address] [place] [phone] [facility] () In 3 days In the event that this physician does not participate in your insurance network, please consult with your insurance company to find a nearby participating provider. Patient Education Materials: Head Injury, Adult; Abrasion, Wccn-py-Efav A MESSAGE TO ALL PATIENTS REGARDING OPIOIDS PRESCRIPTION OPIOIDS: WHAT YOU NEED TO KNOW Prescription opioids can be used to help relieve udgndxkd-qj-qhrwbw pain and are often prescribed following a [...] and have fewer risks and side effects. Optionsmay include: ? Pain relievers such as acetaminophen, [...] unused prescription opioids: Find your community drug take- back program or yourWunderCar Mobility Solutionsrmacy mail-back program, or flush them down the toilet, following guidance from the Food and Drug Administration (www.fda.gov/Drugs/ResourcesForYou). ? Visit www.cdc.gov/drugoverdose to learn about the risks of opioids abuse and overdose. ? If you believe you may be struggling with addiction, tell your health critical care physician and a (more content not included)...NormalCommunity Memorial HospitalVaccinationson 52-65-4439Rpcjeseonlss [id number]:127NormalCommunity Memorial HospitalUS Venous, Unilat, Lower Ext Lefton 82-17-5485IU Venous, Unilat, Lower Ext LeftFINDINGS: Comparison is made with the prior examination of April 29, 2021. Recanalization of flow through the popliteal vein with hyperechogenic thrombus, reduced volume (nonocclussive). Normal superficial and common femoral veins. IMPRESSION: Popliteal venous thrombus recanalization, chronic changes. No complete occlusion. Report reported and signed by Shaun Dunlap on 08/01/2021 RenettaNodiannaalSan Dimas Community Hospitalabraham [facility] knee LT wo conon 82-33-1752UV knee LT wo [facility] [place] [address] MRI Report Signed Patient: Dirk Frank MR#: [id number] : [id number] Acct:[id number] Age/Sex: 55 / M ADM Date: 04/19/21 Loc: [facility] Room: Type: [facility] Attending Dr: Cortez Hall PA-C Ordering Provider: [...] Guillermo Recio M.D.04/19/2021 5:39 PM Dictation Location: [address] By: TAMARA 04/19/211738 Dictated By: Guillermo Recio II, MD 04/19/211729 Signed By: 04/19/211738[facility] Vital Signs Date TimeVital SignValuePerforming ZonmkndohFheiodup95-10-0997 14:46-0400Body uoujri256.3 cmMaya Mattson MD Work Phone: [facility] HospitalFwemtfoler92-77-7440 14:46-0400Body mass index (BMI) [Ratio]50.49 kg/l2BrzctxzqMaya Mattson MD Work Phone: [facility] HospitalMsieiunjrp08-76-2155 14:46-0400Body .2 Amilcar Mattson MD Work Phone: [facility] HospitalQxfzlsqawz78-89-4012 14:46-0400Diastolic blood ivdzuqeb91 mm[Hg]Maya Mattson MD Work Phone: [facility] HospitalQzryedtcjg79-41-7146 14:46-0400Heart rate61 /min Maya Mattson MD Work Phone: [place] [address]Talzueinjl12-45-8985 14:46-6834HnC1% (BldA) [Mass fraction]97 %Maya Mattson MD Work Phone: [facility] HospitalBltvgtvcji77-71-2008 14:46-0400Systolic blood ljsvtwur691 mm[Hg]Maya Mattson MD Work Phone: [facility] HospitalYhuftfdppm28-86-7937 10:04-0400Body .3 Pablo Kaur MD Work Phone: [facility]08-21-2025 10:04-0400Body mass index (BMI) [Ratio]50.49 kg/y5YgnvxyznhksShannan Kaur MD Work Phone: [facility]08-21-2025 10:04-0400Body awwizp507.2 Pio Kaur MD Work Phone: [facility]08-21-2025 10:04-0400Diastolic blood axjzqrhy14 mm[Hg]Shannan Kaur MD Work Phone: [facility]08-21-2025 10:04-0400Heart rate 61 /minShannan Kaur MD Work Phone: [facility]08-21-2025 10:04-4622QlL2% (BldA) [Mass fraction]95 %Shannan Kaur MD Work Phone: [facility]08-21-2025 10:04-0400Systolic blood krnjmfid798 mm[Hg]Shannan Kaur MD Work Phone: [facility]04-28-2025 10:00-0400Body umffbz684.3 Cleopatra Reddy MD Work Phone: 1(684)457-[address] [place], [place] 1091104-28-2025 10:00-0400Body mass index (BMI) [Ratio]51.35 kg/w5IsjmzMayur Reddy MD Work Phone: 1(666)041-[address] [place], [place] 1091104-28-2025 10:00-0400Body zwrdyx791.92 kgMayur Reddy MD Work Phone: 1(918)727-[address] [place], [place] 1091104-28-2025 10:00-0400Diastolic blood dnmersem76 mm[Hg]Mayur Reddy MD Work Phone: 1(064)377-[address] [place], [place] 1091104-28-2025 10:00-0400Heart rate 60 /minMayur Reddy MD Work Phone: [facility]04-28-2025 10:00-3916XuS6% (BldA) [Mass fraction]96 %Mayur Reddy MD Work Phone: 1(164)527-[address] [place], [place] 1091104-28-2025 10:00-0400Systolic blood dbygafba812 mm[Hg]Mayur Reddy MD Work Phone: 1(744)429-[address] [place], [place] 1091103-27-2025 11:06-0400Body rsitiv414.3 cmMaya Mattson MD Work Phone: [phone] HospitalJgpqvkgqxt10-43-1676 11:06-0400Body mass index (BMI) [Ratio]50.91 kg/y3XhjgmhemMaya Mattson MD Work Phone: [phone] HospitalTecifzpsuk13-65-8997 11:06-0400Body zadvvx080.56 kgMaya Mattson MD Work Phone: [phone] [place], [place] [address]Dmoakotsru56-32-1850 11:06-0400Diastolic blood juqazjte87 mm[Hg]Maya Mattson MD Work Phone: 1([phone])646-[address] [place], [place] [address]Ppzcjfjcvf47-39-9014 11:06-0400Heart rate57 /min Maya Mattson MD Work Phone: [phone] HospitalMlqbwfygmz33-87-6640 11:06-4451QmQ7% (BldA) [Mass fraction]96 %Maya Mattson MD Work Phone: [phone] HospitalEeoypfwymt86-14-5700 11:06-0400Systolic blood unvkxuvy750 mm[Hg]Maya Mattson MD Work Phone: [phone] HospitalZcscjhokwt26-22-8927 08:25-0400Body ayomxe087.3 Cleopatra Reddy MD Work Phone: 1(920)[address]10-04-2024 08:25-0400Body mass index (BMI) [Ratio]49.14 kg/d7BvbfyMayur Reddy MD Work Phone: [phone])[address]10-04-2024 08:25-0400Body txeyyl087.76 kgMayur Reddy MD Work Phone: [phone])[address]10-04-2024 08:25-0400Diastolic blood mm[Hg]Mayur Reddy MD Work Phone: 1(986)[address]10-04-2024 08:25-0400Heart rate 65 /minMayur Reddy MD Work Phone: [phone])[address]10-04-2024 08:25-2178DzQ6% (BldA) [Mass fraction]97 %Mayur Reddy MD Work Phone: 1(736)263-[address] [place], [place] [address]10-04-2024 08:25-0400Systolic blood rlfgyycg117 mm[Hg]Mayur Reddy MD Work Phone: [phone])[address]05-22-2024 14:14-0400Heart rate 63 /minMayur Reddy MD Work Phone: [phone])[address]05-22-2024 13:38-0400Body iqvsnm419.3 Cleopatra Reddy MD Work Phone: [phone])[address]05-22-2024 13:38-0400Body mass index (BMI) [Ratio]48.12 kg/u0MvslxMayur Reddy MD Work Phone: [phone])[address]05-22-2024 13:38-0400Body ffnyxk184.49 kgMayur Reddy MD Work Phone: 1(326)[address]05-22-2024 13:38-0400Diastolic blood rladlfcl74 mm[Hg]Mayur Reddy MD Work Phone: 1(325)[address]05-22-2024 13:38-5614VpR5% (BldA) [Mass fraction]97 %Mayur Reddy MD Work Phone: 1(889)[address]05-22-2024 13:38-0400Systolic blood hwvlslak402 mm[Hg]Mayur Reddy MD Work Phone: [phone])[address]03-28-2024 08:50-0400Body vkthyw843.3 Brock Lopez MD Work Phone: [phone])[address]03-28-2024 08:50-0400Body mass index (BMI) [Ratio]47.7 kg/n5LomnbmKeaton Lopez MD Work Phone: 1(084)079-[address] [place], [place] 1091103-28-2024 08:50-0400Body .13 kgKeaton Lopez MD Work Phone: [phone])[phone] [employer] Wgqfph13-04-2943 08:50-0400Diastolic blood itmlncdn73 mm[Hg]Keaton Lopez MD Work Phone: [phone])[address]03-28-2024 08:50-0400Heart rate 63 /minKeaton Lopez MD Work Phone: 1(482)[address]03-28-2024 08:50-1816EiE8% (BldA) [Mass fraction]94 %Keaton Lopez MD Work Phone: [phone])[address] [employer] Ozzlyy50-13-9655 08:50-0400Systolic blood kyutvisp990 mm[Hg]Keaton Lopez MD Work Phone: 1(483)[address]12-29-2023 11:21-0500Body srayze203.3 cmEddie Valerio MD Work Phone: [phone])[address]12-29-2023 11:21-0500Body mass index (BMI) [Ratio]50.01 kg/q6RgfpvlfwEddie Valerio MD Work Phone: 1(266)[address]12-29-2023 11:21-0500Body upooqw363.66 kgEddie Valerio MD Work Phone: 1(775)[address]12-29-2023 11:21-0500Diastolic blood mm[Hg]Eddie Valerio MD Work Phone: 1(350)[address]12-29-2023 11:21-0500Heart rate 55 /minEddie Valerio MD Work Phone: [phone] [employer] Cdzqfg94-92-8938 11:21-1167VyE5% (BldA) [Mass fraction]99 %Eddie Valerio MD Work Phone: 1(001)925-[address] [place], [place] [address]1112-29-2023 11:21-0500Systolic blood ubugvlxb356 mm[Hg]Eddie Valerio MD Work Phone: [facility] HospitalMeridium Gitbrr95-44-5650 14:45-0500Body uqqkcg290.34 cmMajohnathon Varma Other [employer] [facility] Other 02-28-2022 14:45-0500Body mass index (BMI) [Ratio]50.9 kg/x9MdkbhheCortez Varma Other [place] [facility] Other 02-28-2022 14:45-0500Body quwcchocwoz31.9 [degF] Cortez Varma Other [place] [facility] Other 02-28-2022 14:45-0500Body .56 kgMattadam Varma Other [facility] Other 02-28-2022 14:45-0500Diastolic blood jdzkzxua95 mm[Hg] Cortez Varma Other [facility] Other 02-28-2022 14:45-5409MfM3% (BldA) [Mass fraction]96 % Cortez Varma Other [employer] Other 02-28-2022 14:45-0500Systolic blood dggainvv142 mm[Hg] Cortez Varma Other [employer] Other Encounters Encounter DateEncounter TypeCare ProviderFacilityStart: 04-14-2025 End: 69-04-2666Dexxyh Nanci Mattson MD Work Phone: [facility] HospitalComment on above:Type 2 diabetes mellitus without complication, without long-term current use of insulin (HCC) (Primary Dx)Start: 03-11-2025 End: 57-03-2328Dvclrb Nanci Mattson MD Work Phone: [facility] HospitalComment on above:Type 2 diabetes mellitus without complication, without long-term current use of insulin (HCC) (Primary Dx)Type 2 diabetes mellitus without complication, without long- term current use of insulin (HCC); BLAIR (obstructive sleep apnea)Start: 02-12-2025 End: 83-00-7260Idvxynwdndze care manage srvc 7 day dischargeMaya Mattson MD Work Phone: [facility] HospitalComment on above:Type 2 diabetes mellitus without complication, without long-term current use of insulin (HCC) (Primary Dx); Other chest pain; Primary hypertension ; BLAIR (obstructive sleep apnea)Start: 02-12-2025 End: 74-42-4393oyzeyhtxlyQXZKCUAF HOHMANNot AvailableStart: 02-12-2025 End: 36-35-0080Zzsmqe outpatient visit 25 minutesShannan Kaur MD Work Phone: [facility] CardiologyComment on above: Essential (primary) hypertension (Primary Dx); ASCVD (arteriosclerotic cardiovascular disease)Start: 02-12-2025 End: 27-15-0881nscctormerUYUDZPNM BIALECKIProMedica Uk[facility] Valley Medical Centertart: 02-11-2025 End: 78-53-1669Vxhpbfrwl encounterLisa Dhaval COMERProMedica Physicians Cardiology Start: 02-04-2025 End: 76-82-9669rwzlftpymuDIRBKCQK G HOHMANOhioHealth Arthur G.H. Bing, MD, Cancer Centertart: 01-20-2025 End: 25-37-3290Fqzgoxpod encounterMaya Mattson MD Work Phone: noUCSF Benioff Children's Hospital OaklandComment on above:History of heart artery stentStart: 11-10-2024 End: 13-60-7605lsmkbocmlmVzxosrmWashington Arreola MDFacility:PM Sara Start: 10-20-2024 End: 78-36-9161Wtqstn outpatient visit 15 minutesMayur Reddy MD Work Phone: [facility] CardiologyComment on above:ASCVD (arteriosclerotic cardiovascular disease) (Primary Dx); Essential (primary) hypertension; Mixed hyperlipidemiaStart: 10-20-2024 End: 22-17-6840qcdfcoylpgFZOXC L JIMMYCHI St[facility] Medical Centerca [facility] Medical Centertart: 10-17-2024 End: 91-43-1861Luinjslql encounterMaya Hubbard [facility] HospitalMedica Physicians CardiologyStart: 09-18-2024 End: 65-88-7183Zhokhhmelodie Mattson MD Work Phone: [facility] FNR FMStart: 09-18-2024 End: 42-47-1026Xeidhymelodie Mattson MD Work Phone: noms FNR FMStart: 09-18-2024 End: 51-29-5958Bjnvqv outpatient visit 25 minutesMaya Mattson MD Work Phone: noms FNR FMComment on above:Type 2 diabetes mellitus without complication, without long-term current use of insulin (CMS/HCC) (P rimary Dx); Arthralgia of both hands; ASCVD (arteriosclerotic cardiovascular disease) (CMS/HCC); Benign essential hypertension (CMS/HCC); Morbid (severe) obesity due to excess calories (CMS/HCC); Body mass index (BMI) 45.0-49.9, adult (CMS/HCC); Trigger middle finger of left handStart: 09-18-2024 End: 42-71-5221drvcupywulSQPZFRGN HOHMANNot AvailableStart: 08-26-2024 End: 25-12-4163Habosjycw encounterDanielle Murillo [facility] HospitalMed[facility] Comment on above:attribution outreachStart: 08-11-2024 End: 35-21-9521yafypktajuAsevxmwWashington Arreola MDFacility:PM Sara Start: 06-30-2024 End: 69-32-2714vejxuwlzpxBxzayokcMartinez Mattson MDFacility:PM BellevueStart: 06-12-2024 End: 67-65-2687KndftxIanhtf Spangler [facility] Physicians CardiologyStart: 05-27-2024 End: 91-29-9898Vayngctsh encounterMaya Mattson MD Work Phone: noMS FNR FMComment on above:Med RefillStart: 05-26-2024 End: 32-44-3328NrazkvXjnnekcg Hohman MD Work Phone: noMS FNR FMComment on above:Atherosclerosis of samish coronary artery of samish heart without angina pectoris (CMS/HCC)Start: 04-30-2024 End: 55-31-9214HrnfmeZrgxggms Hohman MD Work Phone: noMS FNR FMComment on above:Morbid obesity (CMS/HCC); History of heart artery stent; Benign essential hypertension (CMS/HCC); Acute coronary syndrome (CMS/HCC)Start: 03-28-2024 End: 39-57-3083Smbzuq outpatient visit 15 minutesMayur Reddy MD Work Phone: [facility] CardiologyComment on above: Essential (primary) hypertension (Primary Dx)Start: 03-28-2024 End: 18-44-7442vxqebbbjpzHOIPJ L DEBENEDETTIProMedica Elliott HospitalStart: 03-27-2024 End: 03-26-7868Eowmtpzbz encounterMaya Hubbard CMAProMedica Physicians CardiologyStart: 03-03-2024 End: 92-05-9585DawxhaZrqjctmu Hohman MD Work Phone: noMS FNR FMComment on above:Morbid obesity (CMS/HCC) Start: 01-28-2024 End: 30-15-6590tlbyptrxppSuybfjrqMartinez Mattson MDFacility:PM BellevueStart: 01-14-2024 End: 10-62-8811aeophfxrjdFzboeyifMartinez Mattson MDFacility:PM BellevueStart: 11-27-2023 End: 71-96-7797Ejhehfcjf encounterDanielle Murillo CMAProMedica Administration Comment on above:Attribution OutreachStart: 11-14-2023 End: 48-62-4964Kdsrip outpatient visit 15 minutesMayur Reddy MD Work Phone: [facility] Physicians CardiologyComment on above:SOB (shortness of breath) (Primary Dx); Essential (primary) hypertensionStart: 11-13-2023 End: 92-52-1279Dbxzhluev encounterCarley Winston [facility] Comment on above:sob and mild chest discomfortStart: 10-05-2023 End: 26-78-8578Zvtkjummx encounterYesika Fortune [facility] Physicians CardiologyComment on above:Brilinta vs PlavixStart: 09-24-2023 End: 04-17-2692Ebdrdssz SupportAndre Cline MD Work Phone: [facility] Start: 09-20-2023 End: 28-69-1748Rfldul outpatient visit 15 minutesKeaton Lopez MD Work Phone: [facility] Physicians CardiologyComment on above:ACS (acute coronary syndrome) ([facility]-HCC) (Primary Dx)Start: 27-49-9522Debjcexaq encounterMaya Hubbard [facility] Physicians CardiologyStart: 09-19-2023 End: 95-46-9636Vfgqnbu encounter procedureAndre Cline MD Work Phone: [facility] Comment on above:Acute coronary syndrome ([facility]-HCC)Start: 09-17-2023 End: 35-55-2521Qlcjecy encounter procedureAdnre Cline MD Work Phone: [facility] Comment on above:Acute coronary syndrome ([facility]-HCC)Start: 09-13-2023 End: 14-51-3746Uyvwbnp encounter Anju Cline MD Work Phone: [facility] Comment on above:Acute coronary syndrome ([facility]-HCC)Start: 09-06-2023 End: 00-64-6147Rynqmmz encounter procedureAndre Cline MD Work Phone: [facility] Comment on above:Acute coronary syndrome (CMS-HCC)Start: 09-05-2023 End: 93-02-1503Kpqhpze encounter procedureAndre Cline MD Work Phone: [facility] Comment on above:Acute coronary syndrome ([facility]-HCC)Start: 08-30-2023 End: 35-78-4333Jbvyovw encounter procedureAndre Cline MD Work Phone: [facility] Comment on above:Acute coronary syndrome ([facility]-HCC)Start: 08-29-2023 End: 63-39-9229Vrhcqhh encounter procedureAndre Cline MD Work Phone: [facility] Comment on above:Acute coronary syndrome ([facility]-HCC)Start: 08-23-2023 End: 10-73-4300Wdriurz encounter procedureAndre Cline MD Work Phone: [facility] Comment on above:Acute coronary syndrome ([facility]-H[facility])Start: 08-22-2023 End: 03-94-9689Wxlaijc encounter procedureAndre Cline MD Work Phone: [facility] Comment on above:Acute coronary syndrome ([facility]-HCC)Start: 08-20-2023 End: 73-06-3716Mswlawb encounter procedureAndre Cline MD Work Phone: [facility] Comment on above:Acute coronary syndrome ([facility]-HCC)Start: 08-15-2023 End: 66-61-3486Qpoapvx encounter procedureAndre Cline MD Work Phone: [facility] Comment on above:Acute coronary syndrome ([facility]-HCC)Start: 08-13-2023 End: 45-97-5602Nmwilzm encounter Anju Cline MD Work Phone: [facility] Comment on above:Acute coronary syndrome ([facility]-H[facility])Start: 08-09-2023 End: 14-71-3916Qpmtmkj encounter procedureAndre Cline MD Work Phone: [facility] Comment on above:Acute coronary syndrome ([facility]-H[facility])Start: 08-06-2023 End: 17-48-3174Ruolphp encounter procedureAndre Cline MD Work Phone: [facility] Comment on above:Acute coronary syndrome ([facility]-H[facility])Start: 08-02-2023 End: 78-43-7240Gxyeauv encounter procedureAndre Cline MD Work Phone: [facility] Comment on above:Acute coronary syndrome ([facility]-H[facility])Start: 08-01-2023 End: 82-74-0678Xtatrvr encounter procedureAndre Cline MD Work Phone: [facility] Comment on above:Acute coronary syndrome ([facility]-H[facility])Start: 07-30-2023 End: 63-00-2908Gnbkfee encounter procedureAndre Cline MD Work Phone: [facility] Comment on above:Acute coronary syndrome ([facility]-H[facility])Start: 07-26-2023 End: 55-32-2795Kcazujy encounter procedureAndre Cline MD Work Phone: [facility] Comment on above:Acute coronary syndrome ([facility]-H[facility])Start: 07-25-2023 End: 70-45-5606Cdjniek encounter procedureAndre Cline MD Work Phone: [facility] Comment on above:Acute coronary syndrome ([facility]-H[facility])Start: 07-23-2023 End: 39-47-2643Qrgviog encounter procedureAndre Cline MD Work Phone: [facility] Comment on above:Acute coronary syndrome ([facility]-H[facility])Start: 07-18-2023 End: 20-95-3138Wpcoclc encounter procedureAndre Cline MD Work Phone: [facility] Comment on above:Acute coronary syndrome ([facility])Start: 07-16-2023 End: 11-70-7408Oocuhfg encounter procedureAndre Cline MD Work Phone: [facility] Comment on above:Acute coronary syndrome ([facility])Start: 07-12-2023 End: 93-15-2169Rqfnurw encounter procedureAndre Cline MD Work Phone: [facility] Comment on above:Acute coronary syndrome ([facility])Start: 07-11-2023 End: 08-26-2078Gobpsvn encounter procedureAndre Cline MD Work Phone: [facility] Comment on above:Acute coronary syndrome ([facility])Start: 07-09-2023 End: 58-87-5713Fqkiwtj encounter procedureAndre Cline MD Work Phone: [facility] Comment on above:Acute coronary syndrome ([facility])Start: 84-42-3255Gqcfhu Only Maria Elena HAMILTONAProMedjose Physicians CardiologyComment on above:SOB (shortness of breath)Start: 06-22-2023 End: 69-91-6032Hzhphk outpatient visit 15 Hannah Valerio MD Work Phone: [facility] Physicians CardiologyComment on above:S/P right coronary artery (RCA) stent placement (Primary Dx); Essential hypertension; Pure hypercholesterolemia; History of DVT (deep vein thrombosis); Morbid obesity with BMI of 50.0-59.9, adult ([facility]); SOB (shortness of breath)Start: 68-71-6212Ncgpbsvfl encounterChsang HAMILTONAProMedjose Physicians CardiologyStart: 51-34-0432hzatxpxilgEPZXManatee Memorial Hospital HospitalStart: 12-42-5398uatturtqosWedzas Reid Humphreys Facility:[facility] WellnessStart: 04-11-2022 End: 46-83-1826Kkhbldivb department patient visitJohn ParenteFacility:FTMCStart: 04-11-2022 End: 89-94-2268dylkoxzaxcTbvxvoa [facility] Hospitalcility:[facility] Health and WellnessStart: 09-01-2021 End: 49-47-1935ifqynwykxeYercurq [place] Other [address] Other Start: 45-03-7484Xtuyshztk encounterCortez Varma [facility] Vascular SurgeryStart: 08-22-2021 End: 16-92-7956njixnnoilhIbresoh [place] Other [facility] Other Start: 35-57-3703Rhdxiu outpatient new 45 minutes [facility]yonnySy[facility] OutPt Procedures DateProcedureProcedure DetailPerforming ClinicianStart: 52-33-0341Ofjsbikaup glycosylated k7kZvgeliizMaya Mattson MD Work Phone: Start: 66-47-1665Xaqzijrwxw glycosylated k2jZkrsltygMaya Mattson MD Work Phone: Start: 75-37-6628Akuepw-up visitFollow-upLLIGIA REDDYStart: 12-45-5812Wvy routine ecg w/least 12 lds w/i&rLaura Jo Reddy MD Work Phone: Start: 91-87-8526Rydi bld gluc mntr dev cleared fda spec home useAndre Cline MD Work Phone: Start: 66-29-0331Tpan bld gluc mntr dev cleared fda spec home useAndre Cline MD Work Phone: Start: 07-30-2023 End: 03-37-0777Nhvu bld gluc mntr dev cleared fda spec home useAndre Cline MD Work Phone: Start: 13-60-4696Vjkh bld gluc mntr dev cleared fda spec home useAndre Cline MD Work Phone: Start: 38-76-7994Hzaa bld gluc mntr dev cleared fda spec home useAndre Cline MD Work Phone: Start: 62-11-0575Ebos bld gluc mntr dev cleared fda spec home useAndre Cline MD Work Phone: Start: 67-89-7909Wsex bld gluc mntr dev cleared fda spec home useAndre Cline MD Work Phone: Start: 33-11-0899Qulerpuyaccp [Mass/volume] in Urine by Test stripPm 1Start: 07-18-2023 End: 38-53-4375Uhng bld gluc mntr dev cleared fda spec home useAndre Cline MD Work Phone: Start: 07-16-2023 End: 84-34-0696Phaz bld gluc mntr dev cleared fda spec home useAndre Cline MD Work Phone: Start: 07-12-2023 End: 69-44-4102Eqoj bld gluc mntr dev cleared fda spec home useAndre Cline MD Work Phone: Start: 07-11-2023 End: 88-82-5684Ajjo bld gluc mntr dev cleared fda spec home useAndre Cline MD Work Phone: Start: 07-09-2023 End: 51-35-8901Cxyq bld gluc mntr dev cleared fda spec home useAndre Cline MD Work Phone: Start: 33-22-4586Fhnuaoxrafc peptideMoashley Valerio MD Work Phone: History of placement of stent for coronary artery diseaseHistory of heart artery stentMaya Mattson MD Work Phone: History of placement of stent for coronary artery diseaseS/P right coronary artery (RCA) stent placementEddie Valerio MD Work Phone: History of placement of stent for coronary artery diseaseHistory of heart artery stentMaya Mattson MD Work Phone: Plan of Treatment DateCare ActivityDetailAuthorStart: 60-59-7539XUxO,Tdap and Td Vaccines (8 - Td or Tdap)DTaP,Tdap and Td Vaccines (8 - Td or Tdap)[facility] SystemStart: 95-14-9740Bufum BMI ScreeningAdult BMI ScreeningPremier Health Atrium Medical Center SystemStart: 04-30-4524Jveeiqb ScreeningTobacco ScreeningPremier Health [facility]rium [facility] SystemStart: 24-20-4344Qydho BMI ScreeningAdult BMI ScreeningPremier Health Atrium [facility] SystemStart: 68-84-2951Suhcxbi ScreeningTobacco ScreeningPremier Health [facility] SystemStart: 32-97-9111Ehqlt BMI ScreeningAdult BMI ScreeningPremier Health Atrium Medical Center SystemStart: 45-80-1041Paayfhr ScreeningTobacco ScreeningPremier Health Atrium Medical Center SystemStart: 23-23-6256Ikjsrhwl screeningDiabetes: Retinopathy ScreeningNOMissouri Baptist Hospital-SullivanStart: 87-73-0561Wtoyxauwoi A1c measurementDiabetes: Hemoglobin W2VQZKLGolden Valley Memorial [facility] Start: 04-27-2025 End: 93-32-4964Zjrmaom encounter procedureProMedica Physicians CardiologyStart: 33-51-9012Ytvfk BMI ScreeningAdult BMI ScreeningPremier Health Atrium Medical Center SystemStart: 43-00-4154Hskkiyo ScreeningTobacco ScreeningPremier Health Atrium Medical Center SystemStart: 49-07-8713Prresqxfj vaccinationPremier Health Atrium Medical Center SystemStart: 02-12-2025 End: 48-37-2503Khrwwpt encounter detzhwwgj53/21/2025 10:30 AM EDT Office Visit [facility] [address] [place] [address] Shannan Kaur MD [address] [place] [address] [facility] CardiologyStart: 30-26-4001Qkzsrfzwa for malignant neoplasm of colonColorectal Cancer Screening [facility]OMS HealthcareComment on above:Postponed from 1967 (Patient Refused) Start: 91-62-2565Iwlmirage vaccinationInfluenza Vaccine (#1)[facility] Comment on above:Postponed from 02/24/2024 (Supply/Drug Shortage)Start: 76-39-0421Vovakwxjmc A1c measurementDiabetes: Hemoglobin Y1GYZDN Healthcare Start: 69-69-6275Fmfzk BMI ScreeningAdult BMI ScreeningUpper [facility] Start: 04-25-3474Neewago ScreeningTobacco ScreeningPremier Health Atrium Medical Center SystemStart: 10-20-2024 End: 20-20-0543Mnkylic encounter cosfxbvyj76/28/2025 10:15 AM EDT Office Visit [facility] [address] [place] [address] Mayur Reddy MD [address] [place] [address] [facility] CardiologyStart: 16-03-6291Enuyxi Use: DiabeticStatin Use: DiabeticReplaced by [facility] Ansontart: 53-29-7327Chzfc BMI ScreeningAdult BMI ScreeningReplaced by [facility] Ansontart: 10-51-3981Jgnpznd ScreeningTobacco ScreeningReplaced by [facility] Ansontart: 09-18-2024 End: 42-16-1780Jlamjjhmcrnhf metabolic 2000 panel - Serum or PlasmaComprehensive metabolic panel Lab Routine ASCVD (arteriosclerotic cardiovascular disease) (CMS/HCC)Expected: 09/18/2024 (Approximate), Expires: 09/18/2025[facility] Comment on above:Expected: 09/18/2024 (Approximate), Expires: 09/18/2025Start: 09-18-2024 End: 78-02-3297ClmhikhvIichlhnt Lab Routine Morbid (severe) obesity due to excess calories (CMS/HCC) Body mass index (BMI)45.0-49.9, adult (CMS/HCC) Expected: 09/18/2024 (Approximate), Expires: 09/18/2025NOMS HealthcareComment on above:Expected: 09/18/2024 (Approximate), Expires: 09/18/2025Start: 09-18-2024 End: 46-12-2876Mvcwx 1996 panel - Serum or PlasmaLipid panel Lab Routine ASCVD (arteriosclerotic cardiovascular disease) ([facility]) Expected: 09/18/2024 (Approximate), Expires: 09/18/2025NOMS HealthcareComment on above:Expected: 09/18/2024 (Approximate), Expires: 09/18/2025Start: 09-18-2024 End: 95-74-4905Bnxbjtxecjca/Creatinine panel in random UrineMicroalbumin / creatinine urine ratio Lab Routine Type 2 diabetes mellitus without complication, without long-term current use of insulin ([facility]) Expected: 09/18/2024 (Approximate), Expires: 09/18/2025[facility] Work Phone: Comment on above:Expected: 09/18/2024 (Approximate), Expires: 09/18/2025Start: 09-18-2024 End: 93-07-0482Hhuesvd Ab [Titer] in Serum by ImmunofluorescenceANA Lab Routine Arthralgia of both hands Expected: 09/18/2024 (Approximate), Expires: 09/18/2025 NOMS HealthcareComment on above:Expected: 09/18/2024 (Approximate), Expires: 09/18/2025Start: 09-18-2024 End: 46-96-2660Ufqwtvdhok factor [Units/volume] in Serum or PlasmaRheumatoid factor Lab Routine Arthralgia of both hands Expected: 09/18/2024 (Approximate), Expires:09/18/2025NOMS HealthcareComment on above:Expected: 09/18/2024 (Approximate), Expires: 09/18/2025Start: 41-12-0222Cwhvm screening for protein NOM HealthcareStart: 27-86-5238Arcvw BMI ScreeningAdult BMI ScreeningProEast [facility] SystemStart: 16-59-4348Anuyygg ScreeningTobacco ScreeningProAvita Health System Ontario Hospitalca [facility] SystemStart: 92-22-9443Uklzs BMI ScreeningAdult BMI ScreeningReplaced by [facility] Ansontart: 49-45-5851Rgsbdjohvo A1c measurementDiabetes: Hemoglobin U8YEVAO HealthcareStart: 03-28-2024 End: 46-16-1763Xszegus encounter procedureProMedica Physicians CardiologyStart: 03-55-2027Ojnfkiowy vaccinationLONE PEAK H[facility]ITAL HealthcareStart: 11-14-2023 End: 15-01-7983Hjuedjn encounter gylibdzss81/22/2024 2:00 PM EDT Office Visit [facility] [address] [place] [address] Mayur Reddy MD [address] [place], [place] [address] [facility] Physicians CardiologyStart: 10-10-2023 End: 08-54-7342Bpepsvbw Wpqsyrz5310/10/2023 8:00 AM EDT Clinical Support [facility] [address] [place] [address] Andre Cline MD [address] [place] [address] [facility] RehabStart: 10-08-2023 End: 80-03-8699Suwghfx encounter procedureThe [facility] Cardiac RehabStart: 92-04-1815Mlqdd BMI Follow Up PlanAdult BMI Follow Up Plan Replaced by [facility] Ansontart: 22-63-3907Zowojhg ScreeningTobacco Screening Replaced by [facility] Ansontart: 10-04-2023 End: 38-28-9828Liuhyxh encounter procedureThe [facility] Cardiac RehabStart: 10-03-2023 End: 17-79-4753Spxsciz encounter procedureThe [facility] Cardiac RehabStart: 10-01-2023 End: 47-26-8455Ezdvdfu encounter procedureThe [facility] Cardiac RehabStart: 09-27-2023 End: 36-34-8520Bvgeyjr encounter gpcitgust28/04/2024 9:00 AM EDT Office Visit [facility] [address] [place] [address] Andre Cline MD [address] [place] [address] [facility] RehabStart: 09-26-2023 End: 18-06-4619Jyhnzbf encounter procedureThe [facility] Cardiac RehabStart: 09-24-2023 End: 17-00-2420Bpnuhee encounter procedureThe [facility] Cardiac RehabStart: 09-20-2023 End: 58-03-2506Tpytban encounter procedureThe [facility] Cardiac RehabStart: 09-19-2023 End: 84-29-0654Aqdetgy encounter cuhbbktjh48/27/2024 9:00 AM EDT Office Visit [facility] [address] [place] [address] Andre Cline MD [facility] [place] [address] [facility] RehabStart: 09-17-2023 End: 91-25-3086Kgkcfle encounter qhfsombip29/25/2024 9:00 AM EDT Office Visit [facility] [address] [place] [address] Andre Cline MD [address] [place] [address] [facility] RehabStart: 09-13-2023 End: 57-62-0775Kutomxq encounter /21/2024 9:00 AM EDT Office Visit [facility] [address] [place] [address] Andre Cline MD [address] [place] [address] [facility] RehabStart: 09-12-2023 End: 14-45-5405Zywfyws encounter fofeojdai55/20/2024 9:00 AM EDT Office Visit [facility] [address] [place] [address] Andre Cline MD [address] [place] [address] [facility] RehabStart: 09-10-2023 End: 78-31-2188Msjjwap encounter qbjvwlpxo54/18/2024 9:00 AM EDT Office Visit [facility] [address] [place] [address] Andre Cline MD [address] [place] [address] [facility] RehabStart: 09-06-2023 End: 03-16-4313Wcuiawm encounter fczuvjisf42/14/2024 9:00 AM EDT Office Visit [facility] [address] [place] [address] Andre Cline MD [address] [place] [address] [facility] RehabStart: 09-05-2023 End: 98-68-7344Npjhwaz encounter qcsqiubmp49/13/2024 9:00 AM EDT Office Visit [facility] [address] [place] [address] Andre Cline MD [address] [place] [address] [facility] RehabStart: 09-03-2023 End: 88-47-7883Rkszyhs encounter lnsidbkug99/11/2024 9:00 AM EDT Office Visit [facility] [address] [place] [address] Andre Cline MD [address] [place] [address] [facility] RehabStart: 08-30-2023 End: 81-09-1015Ybsslax encounter odqbqrdac51/07/2024 9:00 AM EST Office Visit [facility] [address] [place] [address] Andre Cline MD [address] [place] [address] [facility] RehabStart: 08-29-2023 End: 49-74-8799Pykdczx encounter drandwzdm33/06/2024 9:00 AM EST Office Visit [facility] [address] [place] [address] Andre Cline MD [address] [place] [address] [facility] RehabStart: 08-27-2023 End: 17-28-2797Beiuwdj encounter ltszxrelw49/04/2024 9:00 AM EST Office Visit [facility] [address] [place] [address] Andre Cline MD [address] [place] [address] [facility] RehabStart: 08-23-2023 End: 29-52-9333Qkigfoe encounter ahxsimpnf99/29/2024 9:00 AM EST Office Visit [facility] [address] [place] [address] Andre Cline MD [address] [place] [address] [facility] RehabStart: 08-22-2023 End: 56-01-5012Nhxzkxu encounter rwpsaoiju29/28/2024 9:00 AM EST Office Visit [facility] [address] [place] [address] Andre Cline MD [facility] [place] [address] [facility] RehabStart: 08-20-2023 End: 51-47-2341Jmbayit encounter swbvofypp34/26/2024 9:00 AM EST Office Visit [facility] [address] [place] [address] Andre Cline MD [address] [place] [address] [facility] RehabStart: 08-16-2023 End: 73-70-6559Ozomxqy encounter ilkcdkmlz35/22/2024 9:00 AM EST Office Visit [facility] [address] [place] [address] Andre Cline MD [address] [place] [address] [facility] RehabStart: 08-15-2023 End: 19-09-9856Hknqkhn encounter safzhqdko24/21/2024 9:00 AM EST Office Visit [facility] [address] [place] [address] Andre Cline MD [address] [place] [address] [facility] RehabStart: 08-13-2023 End: 49-44-4299Mdpjwwp encounter kyjpderde41/19/2024 9:00 AM EST Office Visit [facility] [address] [place] [place] [address] Andre Cline MD [address] [place] [address] [facility] RehabStart: 08-09-2023 End: 77-06-4044Htcbuwo encounter tgnvmzuva90/15/2024 9:00 AM EST Office Visit [facility] [address] [place] [address] Andre Cline MD [address] [place] [address] [facility] RehabStart: 08-08-2023 End: 27-90-7233Bvanbho encounter jvfpdwces02/14/2024 9:00 AM EST Office Visit [facility] [address] [place] [address] Andre Cline MD [address] [place] [address] [facility] RehabStart: 08-06-2023 End: 23-28-3858Nljzhwx encounter pfecrxztd35/12/2024 9:00 AM EST Office Visit [facility] [address] [place] [address] Andre Cline MD [address] [place] [address] [facility] RehabStart: 08-02-2023 End: 62-88-0441Grmfqvn encounter viybtrzql51/08/2024 9:00 AM EST Office Visit [facility] [address] [place] [address] Andre Cline MD [address] [place] [address] [facility] RehabStart: 08-01-2023 End: 63-03-8347Hatfffp encounter qxwhmbsel32/07/2024 9:00 AM EST Office Visit [facility] [address] [place] [address] Andre Cline MD [address] [place] [address] [facility] RehabStart: 07-30-2023 End: 20-20-4593Vlrlsqq encounter xlqszwzyq67/05/2024 9:00 AM EST Office Visit [facility] [address] [place] [address] Andre Cline MD [address] [place] [address] [facility] RehabStart: 07-26-2023 End: 87-47-8534Lfbtrfp encounter xmypcfvpk53/01/2024 9:00 AM EST Office Visit [facility] [address] [place] [address] Andre Cline MD [address] [place] [address] [facility] RehabStart: 07-25-2023 End: 97-17-4341Fxieofq encounter bwaumvflo77/31/2024 9:00 AM EST Office Visit [facility] [address] [place] [address] Andre Cline MD [address] [place] [address] [facility] RehabStart: 07-23-2023 End: 52-76-5733Zlnzjpc encounter khzywekzy00/29/2024 9:00 AM EST Office Visit [facility] [address] [place] [address] Andre Cline MD [address] [place] [address] [facility] RehabStart: 07-19-2023 End: 09-42-1543Epdaeaa encounter tawvydeby73/25/2024 9:00 AM EST Office Visit [facility] [address] [place] [address] Andre Cline MD [address] [place] [address] [facility] RehabStart: 07-18-2023 End: 94-53-1333Vurglis encounter qlrsvpqij06/24/2024 9:00 AM EST Office Visit [facility] [address] [place] [address] Andre Cline MD [address] [place] [address] [facility] RehabStart: 07-16-2023 End: 39-93-2200Wpcwxfz encounter trbiabzoe92/22/2024 9:00 AM EST Office Visit [facility] [address] [place] [address] Andre Cline MD [address] [place] [address] [facility] RehabStart: 07-12-2023 End: 11-38-5982Yftglre encounter bohqteshw13/18/2024 9:00 AM EST Office Visit [facility] [address] [place] [address] Andre Cline MD [address] [place] [address] [facility] RehabStart: 07-11-2023 End: 28-16-6522Epucmnv encounter qwhbdioty92/17/2024 9:00 AM EST Office Visit [facility] [address] [place] [address] Andre Cline MD [address] [place] [address] [facility]habStart: 06-22-2023 End: 13-32-0934WF Chest PA and LateralX-ray chest 2 views Imaging Routine SOB (shortness of breath) Expected: 06/22/2023, Expires: 4[facility] Work Phone: Comment on above:Expected: 06/22/2023, Expires: 06/22/2024Start: 06-22-2023 End: 29-81-4090Rlmuhqm encounter vxpqrecmt42/29/2023 11:30 AM EST Office Visit [facility] [address] [place] [address] Eddie Valerio MD [address] [place] [address] [facility] CardiologyStart: 02-23-2023 Influenza vaccinationInfluenza VaccineProEast [facility] SystemStart: 2017 Administration of varicella zoster vaccineZoster (Shingles) Vaccine (1 of 2) [facility] SystemStart: 61-02-8282Alzsw BMI Follow Up PlanAdult BMI Follow Up PlanPremier Health Atrium Medical Center SystemStart: 38-66-4330Jzrgzkat foot examination Diabetic Foot ExamProEast Liverpool City Hospital SystemStart: 91-22-6611Qnnwjdntty Screening Depression ScreeningPremier Health Atrium Medical Center SystemStart: 46-76-5229Frsubyoz screening Diabetic Ophthalmology ExamProEast [facility] SystemStart: 1967Medicare Annual Wellness (AWV)Medicare Annual Wellness (AWV)[facility] HealthcareStart: 62-34-7569Yvqofqxvk for malignant neoplasm of colonNOMS HealthcareStart: 23-69-3492Jzgysf Use: CardiovascularStatin Use: CardiovascularProEast [facility] City Hospital SystemStart: 31-55-2090Jnjacz Use: DiabeticStatin Use: DiabeticPremier Health Atrium Medical Center SystemStart: 90-10-9058Ydixq screening for proteinUrine MicroalbuminUpper Valley Medical Center End: 91-19-8602Jpylpglqew referral to Cardiac RehabAmbulatory referral to Cardiac Rehab Card Rehab Routine S/P right coronary artery (RCA) stent placement Per Treatment Plan for 36 Occurrences starting 06/22/2023 until 12/22/2023 [facility] SystemComment on above:Per Treatment Plan for 36 Occurrences starting 06/22/2023 until 12/22/2023 End: 83-15-7656Phims metabolic 2000 panel - Serum or PlasmaBasic Metabolic Panel Lab Routine ACS (acute coronary syndrome) ([facility]) 1 Occurrences starting until 09/19/2024[facility] Work Phone: Comment on above:1 Occurrences starting 09/20/2023 until 09/19/2024ARDIOPULMONARY REHABILITATIONCARDIOPULMONARY REHABILITATION Cardiac Services Ordered: 4[facility] SBOComment on above:Ordered: 4CARDIOPULMONARY REHABILITATIONCARDIOPULMONARY REHABILITATION Cardiac Services Ordered: 4[facility] SBOComment on above:Ordered: 07/11/2023 CARDIOPULMONARY REHABILITATIONCARDIOPULMONARY REHABILITATION Cardiac Services Ordered: 4[facility] SBOComment on above:Ordered: 07/12/2023 CARDIOPULMONARY REHABILITATIONCARDIOPULMONARY REHABILITATION Cardiac Services Ordered: 4[facility] SBOComment on above:Ordered: 07/16/2023 CARDIOPULMONARY REHABILITATIONCARDIOPULMONARY REHABILITATION Cardiac Services Ordered: 4[facility] SBOComment on above:Ordered: 07/18/2023 CARDIOPULMONARY REHABILITATIONCARDIOPULMONARY REHABILITATION Cardiac Services Ordered: 4[facility]MedicaComment on above:Ordered: 4CARDIOPULMONARY REHABILITATIONCARDIOPULMONARY REHABILITATION Cardiac Services Ordered: 4ProMedicaComment on above:Ordered: 07/30/2023ARDIOPULMONARY REHABILITATIONCARDIOPULMONARY REHABILITATION Cardiac Services Ordered: 4ProMedicaComment on above:Ordered: 08/01/2023ARDIOPULMONARY REHABILITATIONCARDIOPULMONARY REHABILITATION Cardiac Services Ordered: 4ProMedicaComment on above:Ordered: 08/02/2023ARDIOPULMONARY REHABILITATIONCARDIOPULMONARY REHABILITATION Cardiac Services Ordered: 4ProMedicaComment on above:Ordered: 08/08/2023ARDIOPULMONARY REHABILITATIONCARDIOPULMONARY REHABILITATION Cardiac Services Ordered: 08/09/2023roMedicaComment on above:Ordered: 08/09/2023ARDIOPULMONARY REHABILITATIONCARDIOPULMONARY REHABILITATION Cardiac Services Ordered: 08/13/2023roMedicaComment on above:Ordered: 4CARDIOPULMONARY REHABILITATIONCARDIOPULMONARY REHABILITATION Cardiac Services Ordered: 08/16/2023roMedicaComment on above:Ordered: 08/16/2023ARDIOPULMONARY REHABILITATIONCARDIOPULMONARY REHABILITATION Cardiac Services Ordered: 08/20/2023roMedicaComment on above:Ordered: 4CARDIOPULMONARY REHABILITATIONCARDIOPULMONARY REHABILITATION Cardiac Services Ordered: 08/22/2023roMedicaComment on above:Ordered: 08/22/2023ARDIOPULMONARY REHABILITATIONCARDIOPULMONARY REHABILITATION Cardiac Services Ordered: 08/23/2023roMedicaComment on above:Ordered: 08/23/2023ARDIOPULMONARY REHABILITATIONCARDIOPULMONARY REHABILITATION Cardiac Services Ordered: 08/29/2023roMedicaComment on above:Ordered: 08/29/2023ARDIOPULMONARY REHABILITATIONCARDIOPULMONARY REHABILITATION Cardiac Services Ordered: 08/30/2023roMedicaComment on above:Ordered: 08/30/2023ARDIOPULMONARY REHABILITATIONCARDIOPULMONARY REHABILITATION Cardiac Services Ordered: 09/05/2023roMedicaComment on above:Ordered: 09/05/2023ARDIOPULMONARY REHABILITATIONCARDIOPULMONARY REHABILITATION Cardiac Services Ordered: 09/12/2023[facility]icaComv[facility] on above:Ordered: 09/12/2023ARDIOPULMONARY REHABILITATIONCARDIOPULMONARY REHABILITATION Cardiac Services Ordered: 09/13/2023roMedicaComment on above:Ordered: 09/13/2023ARDIOPULMONARY REHABILITATIONCARDIOPULMONARY REHABILITATION Cardiac Services Ordered: 09/13/2023[facility] SystemComment on above:Ordered: 09/13/2023 CARDIOPULMONARY REHABILITATIONCARDIOPULMONARY REHABILITATION Cardiac Services Ordered: 09/19/2023roMedicaComment on above:Ordered: 09/19/2023ARDIOPULMONARY REHABILITATIONCARDIOPULMONARY REHABILITATION Cardiac Services Ordered: 09/24/2023roMedicaComment on above:Ordered: 09/24/2023 End: 33-83-7951MMK W Auto Differential panel - BloodCBC auto differential Lab Routine Essential (primary) hypertension 1 Occurrences starting 05/28/2024 until 05/27/2025[facility] Work Phone: Comment on above:1 Occurrences starting 05/28/2024 until 05/27/2025 End: 61-26-4348Oncjtpghz [Mass/volume] in Serum or PlasmaMagnesium Lab Routine ACS (acute coronary syndrome) ([facility]) 1 Occurrences starting 09/20/2023 until 09/19/2024[facility] SystemComment on above:1 Occurrences starting 09/20/2023 until 09/19/2024 End: 01-70-8762Wbmuwbbsmfb peptide B [Mass/volume] in BloodBNP Lab Routine SOB (shortness of breath) 1 Occurrences starting 06/22/2023 until 06/22/2024 [facility] SystemComment on above:1 Occurrences starting 06/22/2023 until 06/22/2024 Immunizations Immunization DateImmunizationNotesCare DogjrxccFhmthviy50-07-5916kuwnxrf toxoid, reduced diphtheria toxoid, and acellular pertussis vaccine, adsorbedMaya Mattson MD Work Phone: [facility] HospitalDrrinvwkut65-43-1233cvfkziio influenza, intradermal, preservative Milad Mattson MD Work Phone: [facility] HospitalZybczytqag63-72-6499rjwjlspcg virus vaccine, unspecified formulationCascade Medical Center10-25-2016 influenza, injectable, quadrivalent, preservative Milad Mattson MD Work Phone: [facility] HospitalHsnviouzxa47-43-8807bzmhhaseb, injectable, quadrivalent, preservative Milad Mattson MD Work Phone: [facility] HospitalYsbolkkaig37-04-8593bexzttzqm, injectable, quadrivalent, preservative Milad Mattson MD Work Phone: [facility] HospitalZqogfxcaan02-44-1221nisrvaj and diphtheria toxoids, adsorbed, preservative free, for adult use (5 Lf of tetanus toxoid and 2 Lf of diphtheria toxoid)Maya Mattson MD Work Phone: [facility] HospitalQopksnsijo60-97-7975dfkfzxk toxoid, reduced diphtheria toxoid, and acellular pertussis vaccine, adsorbedMaya Mattson MD Work Phone: [facility] HospitalUvzmyfwbtr42-98-8154tinmdkdv influenza, intradermal, preservative Milad Mattson MD Work Phone: [facility] HospitalBosebgefmf92-15-2504optqamn toxoid, reduced diphtheria toxoid, and acellular pertussis vaccine, adsorbedMaya Mattson MD Work Phone: [facility] HospitalWdmrtimfuf14-00-0523jqovghvwa, seasonal, injectable, preservative Milad Mattson MD Work Phone: [facility] HospitalNeuleepkpk19-31-7388barpikx and diphtheria toxoids, adsorbed, preservative free, for adult use (5 Lf of tetanus toxoid and 2 Lf of diphtheria toxoid)Maya Mattson MD Work Phone: [facility] HospitalGqpvwjmpcq17-26-2694vvtijeb toxoid, reduced diphtheria toxoid, and acellular pertussis vaccine, adsorbedMaya Mattson MD Work Phone: [facility] HospitalAxaxompork80-83-9203qviadie toxoid, reduced diphtheria toxoid, and acellular pertussis vaccine, adsorbedMaya Mattson MD Work Phone: [facility] Payers DatePayer CategoryPayerPolicy ID2025MedicareMEDICARE Member Subscriber Plan / Payer (Effective 2025-Present) Name: Dirk Frank Member ID: [id number] Relation to Subscriber: Self Name: Dirk Frank Subscriber ID: [id number] Payer ID: STATE Group ID: Not on file Type: Medicare Address: [address] [place] [id number] 2025Medicare (Managed Care)[employer] [id number] 2025MedicareMedicare [place] [facility] Member Subscriber Plan / Payer (Effective 2025-Present) Name: Dirk Frank Relation to Subscriber: Self Name: Dirk Frank SubscriberID: [id number] Payer ID: Not on file Type: Not on file Address: [facility] [address] [place] [id number] Care HMO (unspecified)[facility] [id number] Health Insurance RUDI GOMEZ Member Subscriber Plan / Payer (Effective 2023-Present) Name: Dirk Frank Relation to Subscriber: Self Name: Dirk Frank Payer ID: Not on file Type: Not on file Address: [id number] [place] [id number] [id number]'s [id number]'s CompensationWORKER'S COMPENSATION WORKER'S LURRINWDDFNI-BJGHML-[id number] ONLY [id number] 2019-Present [id number] 37 JONES [address] [id number]15 [id number] 2.16.840.1.144435.3.57[id number] 2.16.840.1.800181.3.57[id number] 2.16.840.1.525653.3.57[id number] 2.16.840.1.756662.3.57[id number] 2.16.840.1.720929.3.57[id number] 2.16.840.1.453759.3.57[id number] 2.16.840.1.961988.3.57[id number] 2.16.840.1.496322.3.57[id number] 2.16.840.1.580166.3.57[id number] 2..840.1.414966.3.57[id number] 2.16.840.1.506197.3.57[id number] 2.16.840.1.126271.3.57[id number] 2.16.840.1.961684.3.57[id number] 2.16.840.1.910645.3.57[id number] 2.16840.1.366709.3.579.[id number] Health [id number] 2..1.696342.19 Social History DateTypeDetailFacilityUnknown if ever smokedLinthicum Heights Hospicelink Other Start: 01-24-2024 End: 07-25-9915Djb Assigned [facility] Other Start: 10-03-2022 End: 85-04-9606Flwfrdx smoking status NHISNever smoked tobaccoPremier Health Atrium Medical Center SystemStart: 10-03-2022 End: 58-71-5245Owkxntb use and exposureSmokeless tobacco non-userPremier Health Atrium Medical Center SystemStart: 01-24-2024 End: 75-65-8824Wflyrgmqi beverage intakeCurrent drinker of alcohol (finding) [facility] SystemStart: 01-24-2024 End: 27-80-1406Qgnvqdonk beverage intakeNOKY HealthcareStart: 66-22-9987Mhx assigned at birthNot on filePremier Health Atrium Medical Center SystemStart: 58-92-3025Odi you worried or concerned that in the next two months you may not have stable housing that you own, rent or stay in as a part of a household?NoPBellevue Hospital SystemStart: 47-72-4676Laynpdf CommentoccassionalProEast [facility] City [facility] SystemStart: 10-90-6712CfbBrzb (finding)ProMCanby Medical Center SystemStart: 79-57-1114Bkhgvpw CommentMaybe 4 beers a monthPremier Health Atrium Medical Center System Medical Equipment Procedure CodeEquipment CodeEquipment Original TextEquipment IdentifierDates [id number]: 71-83-2771Qatmwk Cor Stnt 3.5mm X 12mm 145cm Xience [employer] Mtlnk Irvin - [id number], [id number] FDAStart: 06-11-2023 Goals DatePatient GoalDesired Activity/StatePersonal health goalComment on above: Evaluation of progress towards goal: home self care and family supportPersonal health goalComment on above: Evaluation of progress towards goal: under assessment Clinical Notes 08-22-2021 to 03-11-2025 Note Date & GqwzYdazLcfrlvai70-93-1237 Telephone encounter Note* Telephone Encounter - Chelsy Vinson - 03/11/2025 11:08 AM EDT Patient needs refill on Mounjaro and is wondering if he is to move to the next higher dose? [facility] HospitalUnrwkwylnf06-13-5178 Miscellaneous Notes* Telephone Encounter - Chelsy Vinson - 03/11/2025 11:08 AM EDT Patient needs refill on Mounjaro and is wondering if he is to move to the next higher dose? documented in this encounterGolden Valley Memorial HospitalTqdhovbwig05-59-0923 History of Present illness Narrative* Maya Mattson MD - 02/12/2025 2:40 PM EDTAssociated Problem(s): Type 2 diabetes mellitus without complication, without long-term current useof insulin (HCC) Orders: POCT Glycated hemoglobin, total Tirzepatide (Mounjaro) 2.5 MG/0.5ML solution auto-injector; Inject 2.5 mg under the skin 1 (one) time per week * Maya Mattson MD - 02/12/2025 2:40 PM EDTAssociated Problem(s): Chest pain Resolved after adjustment of hypertensive medications. * Maya Mattson MD - 02/12/2025 2:40 PM EDT Images from the original note were not included. Subjective ?Quick Links Last Note in Specialty Snapshot Edit RFV/CC Edit Screenings Current Meds Patient ID: Dirk Frank is a 59 y.o. male who presents for Hospital Follow-up. HPI Flowsheet Row Patient Outreach from 02/06/2025 in [facility] with Lina Rosa LPN Hospital Information ED, Hospital or [facility] Facility Discharge? Hospital Patient has been contacted within two business days of discharge Yes Diagnosis Chest pain, ASCVD Discharge Date 02/05/25 Discharged To: Home Setting Discharge Hospital [facility] Engagement Call Start Time 1150 Admission Date 02/04/25 Medications Discharge medications reviewed and reconciled from hospital? Yes [START: Spironolactone CHANGE: Carvedilol, lisinopril] Is the patient having any side effects they believe may be caused by any medication additions or changes? No Does the patient have all medications ordered at discharge? No [needs to pickling grader from Pharmacy] Appointments Does the patient have a primary care provider? Yes [[facility]U on 02/12] Nursing Interventions Verified appointment date/time/provider Does the patient have any upcoming specialty appointments? Yes [Cardiology in a few weeks] Nursing Interventions Advised patient to keep appointment Self Management Patient Teaching Does the patient have access to their discharge instructions? Yes Nursing Interventions Reviewed instructions with patient What is the patient's perception of their health status since discharge? Improving Is the patient/caregiver able to teach back the hierarchy of who to call/visit for symptoms/problems? PCP, Specialist, Home Health nurse, Urgent Care, ED, 911 Yes Wrap Up Wrap Up Additional Comments Had labs, EKG, CXR Call End Time 1156 History of Present Illness The patient presents for evaluation of diabetes, hypertension, sleep apnea, and back pain. He reports a recurrence of symptoms similar to those experienced in 2022, including pain under his armpit. He did not experience any jaw pain. His blood pressure was elevated when measured at home using a wrist monitor, prompting a visit to the emergency room. The furniture repair technician recommended overnightobservation due to the high blood pressure, which was attributed to inadequate medication. He has been monitoring his diet but has been feeling fatigued, often falling asleep after feeding his dogs and sitting on the couch. He experiences an unusual sensation upon exertion. His medications were adjusted over a week ago, and he reports feeling better since then. He is currently on spironolactone and carvedilol 12.5 mg. He also takes atorvastatin. He has been placed on disability and is currently covered by Medicare. He has been managing his diabetes without medication and reports that his blood sugar levels have been low. He has not taken metformin for some time due to bowel issues. He lost 50 pounds during his last hospital stay. He has resumed using his CPAP machine, now with a nasal mask instead of a full- face one. He increases the moisture setting but still feels dry. He sleeps in a chair due to back pain. He occasionally falls due to leg weakness and experiences numbness in his big toe, second toe, and sometimes his third toe, which he was told is due to pinched nerves. He has been using muscle relaxers and a TENS unit for pain management. Social History: Diet: He has been monitoring his diet. Sleep: He sleeps in a chair due to back pain and uses a CPAP machine with a nasal mask. ?Quick Review Review Full History Edit History Meds - apixaban (Eliquis) 5 MG tablet Ascorbic Acid (vitamin C) 100 MG tablet atorvastatin (Lipitor) 40 MG tablet Blood Glucose Monitoring Suppl (True Metrix Meter) w/Device kit carvedilol (Coreg) 25 MG tablet clopidogrel (Plavix) 75 MG tablet Drug [place] Unilet Lancets 30G [facility] [employer] Blood Glucose Test test strip lisinopril 20 MG tablet Multiple Vitamin (Multivitamin Adult) tablet nitroglycerin (Nitrostat) 0.3 MG SL tablet pantoprazole (ProtoNix) 40 MG EC tablet spironolactone (Aldactone) 25 MG tablet tiZANidine (Zanaflex) 4 MG tablet traMADol (Ultram) 50 MG tablet zinc gluconate 50 MG tablet diazePAM (Valium) 10 MG tablet --- PMH - DVT (deep venous thrombosis) ([facility]) GERD (gastroesophageal reflux disease) History of deep vein thrombosis Hypertension Obesity Objective ?Quick Links Add Vitals Timeline (Adult) Labs Imaging Results Review Trend Vitals ?? Avoid pulling in long tables of results. Comment on relevant results to support your medical decision making. BP 128/74 Pulse 61 Ht 5' 11 Wt 362 lb SpO2 97% BMI 50.49 kg/m Physical Exam Physical Exam General Appearance: Normal. Vital signs: Within normal limits. HEENT: Within normal limits. Respiratory: Clear to auscultation, no wheezing, rales or rhonchi. Cardiovascular: regular rate and rhythm with no murmur. Extremities: no edema, palpable pulses. Skin: Warm and dry, no rash. Neurological: Normal. Psychiatric: Normal. ?Quick Links Full Problem List Back Pain Cardiology CHF Diabetes GI Hypertension Assessment & Plan Type 2 diabetes mellitus without complication, without long-term current use of insulin ([facility]) Orders: POCT Glycated hemoglobin, total Tirzepatide (Mounjaro) 2.5 MG/0.5ML solution auto-injector; Inject 2.5 mg under the skin 1 (one) time per week Other chest pain Resolved after adjustment of hypertensive medications. Primary hypertension Controlled with adjustment of medications. Coreg and lisinopril were both doubled and spironolactone added. BLAIR (obstructive sleep apnea) Orders: Tirzepatide (Mounjaro) 2.5 MG/0.5ML solution auto-injector; Inject 2.5 mg under the skin 1 (one) time per week Assessment & Plan 1. Hypertension: - His blood pressure readings have been satisfactory since the adjustment of his carvedilol dosage to 25 mg. - He is also taking spironolactone as part of his regimen. - He should continue monitoring his blood pressure at home. 2. Diabetes mellitus: - His A1c level was recorded as 6.6 in 08/2024, indicating diabetes. 7 today. - An A1c test will be conducted today to assess his current glycemic control. If the A1c level remains elevated, initiation of Ozempic or Mounjaro will be considered. - Weight loss is emphasized as a critical component of managing his diabetes and overall health. 3. Sleep apnea: - He is currently using a CPAP machine with a nasal mask but reports dryness and discomfort. - Adjusting the humidity settings on the CPAP machine is recommended. - Weight loss is also advised to help alleviate sleep apnea symptoms. 4. Back pain: - He experiences back pain that prevents him from lying in bed, leading him to sleep in a chair. - He is using muscle relaxers and a TENS unit for pain management. Weight loss is recommended to help reduce back pain. documented in this encounterGolden Valley Memorial [id number] History of Present illness Narrative* Shannan Kaur MD - 02/12/2025 10:30 AM EDT Dirk Frank Date of visit: 02/12/2025 Date of : 1965 Age: 59 y.o. Patient Active Problem List Diagnosis Essential (primary) hypertension Anxiety Gastroesophageal reflux disease without esophagitis Obstructive sleep apnea syndrome BMI 50.0-59.9, adult ([facility] Ventral hernia Chronic deep vein thrombosis (DVT) of lower extremity ([facility]) DM2 (diabetes mellitus, type 2) ([facility]) ASCVD (arteriosclerotic cardiovascular disease) Mixed hyperlipidemia Chest pain, unspecified type Allergies Allergen Reactions Amoxicillin Other Reaction(s): Unknown Amoxicillin-Pot Clavulanate Other (See Comments) tore my liver up Other Reaction(s): Unknown Ezetimibe Diarrhea Current Outpatient Medications Medication Sig Dispense Refill apixaban (ELIQUIS) 5 mg tablet Take 1 [...] by glucometer 100 strip 10 carvediloL (COREG) 25 mg tablet Take 1 tablet (25 mg total) by mouth in the morning and 1 tablet (25 mg total) before bedtime. 60 tablet 2 clopidogreL (PLAVIX) 75 mg tablet Take 1 tablet (75 mg total) by mouth in the morning. 90 tablet 3 lisinopriL (PRINIVIL,ZESTRIL) 20 mg tablet Take 1 tablet (20 mg total) by mouth nightly. 30 tablet 2 nitroglycerin (NITROSTAT) 0.[address] 1 tablet (0.3 mg total) under the tongue every 5 (five) minutes as needed for chest pain. 100 tablet 3 spironolactone (ALDACTONE) 25 mg tablet Take 1 tablet (25 mg total) by mouth in the morning. 30 tablet 2 tiZANidine (ZANAFLEX) 4 mg capsule Take 1 capsule (4 mg total) by mouth daily as needed. traMADoL (ULTRAM) 50 mg tablet Take 1 tablet (50 mg total) by mouth 3 (three) times a day as neededfor pain. zinc gluconate 50 mg tablet Take 1 tablet (50 mg total) by mouth in the morning. pregabalin (LYRICA) 25 mg capsule Take 1 capsule (25 mg total) by mouth in the morning and 1 capsule (25 mg total) at noon and 1 capsule (25 mg total) before bedtime. (Patient not taking: Reported on02/12/2025) No current facility-administered medications for this visit. Chief Complaint Patient presents with Hospital Follow-up MED CHANGES Shortness of Breath Hypertension History of Present Illness This is office visit following hospital discharge. Patient was seen in consultation February 05, 2025when presented with the angina equivalent blood pressure was very high 175 mm Hg troponin was negative medication was adjusted Patient had history of coronary arterey disease had PCI with stent placement to RCA in 2022, hypertension, diabetes, high cholesterol, history of DVT on Eliquis, morbid obesity and obstructive sleep apnea patient accompanied by the to this visit been doing well no more angina equivalent no shortness of breath or palpitation blood pressure today is 112/74 Past Medical History: Diagnosis Date Allergic Seasonal Arthritis Asthma DM2 (diabetes mellitus, type 2) ([facility] 06/10/2023 DVT (deep venous thrombosis) ([facility] chronic LLE on Eliquis Hypertension Obesity Visual impairment No data recorded No data recorded No data recorded Past Surgical History: Procedure Laterality Date APPENDECTOMY ARTHROSCOPY MENISCECTOMY KNEE & CPT 83128 Left 09/20/2021 Performed by Mason Vang Jr., DO at [facility] Cardiac catheterization N/A 06/11/2023 Performed by Andre Cline MD at [facility] CARDIAC CATH LABS CARPAL TUNNEL RELEASE Bilateral Coronary angiogram and left ventricular gram/pressure N/A 06/11/2023 Performed by Andre Cline MD at [facility] CARDIAC CATH LABS HERNIA REPAIR x4 NECK SURGERY C6&7 [facility] 2006 SHOULDER ARTHROSCOPY Stent drug-eluting right coronary artery N/A 06/11/2023 Performed by Andre Cline MD at [facility] CARDIAC CATH LABS UMBILICAL HERNIA REPAIR Family History Problem Relation Age of Onset [...] and Sexual Activity Alcohol use: Yes Comment: Maybe 4 beers a month Drug use: Never Sexual activity: Yes Partners: Female Other Topics Concern Caffeine Use No Social History Narrative Not on file Social Drivers of Health Financial Resource Strain: Not on file Food Insecurity: No Food Insecurity (02/12/2025) Hunger Screening Food Insecurity - Worry: Never True Food Insecurity - Inability: Never True Transportation Needs: Not on file Physical Activity: Not on file Stress: Not on file Social Connections: Not on file Interpersonal Safety: Not on file Housing Instability: Low Risk (06/12/2023) Housing Instability Housing Instability: No Review of Systems Review of Systems Constitutional: Negative. HENT: Negative. Eyes: Negative. Cardiovascular: Negative. Respiratory: Negative. Endocrine: Negative. Hematologic/Lymphatic: Bruises/bleeds easily. Skin: Negative. Musculoskeletal: Positive for back pain. Gastrointestinal: Negative. Genitourinary: Negative. Neurological: Negative. Psychiatric/Behavioral: Negative. Allergic/Immunologic: Positive for environmental allergies. Vascular: Negative. CARDIOVASCULAR: Please review HPI. Physical Examination [...] Appropriate mood, memory and judgement. VITAL SIGNS: BP 112/74 Pulse 61 Ht 180.3 cm (5' 11 ) Wt (!) 164.2 kg (362 lb) SpO2 95% BMI 50.49 kg/m Orders Placed or Reconciled This Encounter Medications tiZANidine (ZANAFLEX) 4 mg capsule Sig: Take 1 capsule (4 mg total) by mouth daily as needed. traMADoL (ULTRAM) 50 mg tablet Sig: Take 1 tablet (50 mg total) by mouth 3 (three) times a day as needed for pain. There are no discontinued medications. IMPRESSIONS/PLAN There are no diagnoses linked to this encounter. 1 recent admission to the hospital with angina equivalent likely contribution of hypertensive urgency medications with the adjusted patient is doing well blood pressure not well controlled 2 coronary arterey disease with history of PCI with stent placement to [facility] 2022 3 hypertension not well controlled 4 diabetes primary physician management 5 obesity chronic due to excessive caloric intake 6 high cholesterol continue home medication 7 currently on Eliquis Plan Continue current regimen Follow up in 6 months TODAYS ORDERS No orders of the defined types were placed in this encounter. FOLLOW UP Return in about 6 months (around 08/15/2025). PCP: Maya Mattson MD Referring Physician: Maya Mattson MD [address] [place] [address] documented in this [facility]08-20-2025 Miscellaneous Notes* Telephone Encounter - Lois Puentes CMA - 02/11/2025 1:20 PM EDT Called patient to remind them to bring their most current copy of their medication list with them to their appt. Patient verbalizes understanding. documented in this [facility]08-20-2025 Telephone encounter Note* Telephone Encounter - Lois Puentes CMA - 02/11/2025 1:20 PM EDT Called patient to remind them to bring their most current copy of their medication list with them to their appt. Patient verbalizes understanding. [facility] [id number] Telephone encounter Note* Telephone Encounter - Ernesto Chico - 01/20/2025 10:09 AM EDT Eliquis has always been sent in for a 90 day - he only got a 30 day . His Insurance is changing In January - so it will cost more . He Is unsure what it will be . Asking for the 90 day [facility] [id number] Miscellaneous Notes* Telephone Encounter - Ernesto Golden - 01/20/2025 10:09 AM EDT Eliquis has always been sent in for a 90 day - he only got a 30 day . His Insurance is changing In January - so it will cost more . He Is unsure what it will be . Asking for the 90 day be called in [facility] - documented in this encounterGolden Valley Memorial [id number] History of Present illness Narrative* Mayur Reddy MD - 10/20/2024 10:15 AM EDT Dirk Frank Date of visit: 10/20/2024 Date of : 1965 Age: 59 y.o. Patient Active Problem List Diagnosis Essential (primary) hypertension Anxiety Gastroesophageal reflux disease without esophagitis Obstructive sleep apnea syndrome BMI 50.0-59.9, adult ([facility] Ventral hernia Chronic deep vein thrombosis (DVT) of lower extremity ([facility]) DM2 (diabetes mellitus, type 2) ([facility]) ASCVD (arteriosclerotic cardiovascular disease) Mixed hyperlipidemia Allergies Allergen Reactions Amoxicillin Other Reaction(s): Unknown Amoxicillin-Pot Clavulanate Other (See Comments) tore my liver up Other Reaction(s): Unknown Ezetimibe Diarrhea Current Outpatient Medications Medication Sig Dispense Refill apixaban (ELIQUIS) 5 mg tablet Take 1 [...] mouth in the morning. 90 tablet 3 lisinopriL (PRINIVIL,ZESTRIL) 10 mg tablet Take 1 tablet (10 mg total) by mouth nightly. nitroglycerin (NITROSTAT) 0.[address] 1 tablet (0.3 mg total) under the tongue every 5 (five) minutes as needed for chest pain. 100 tablet 3 pregabalin (LYRICA) 25 mg capsule Take 1 capsule (25 mg total) by mouth in the morning and 1 capsule (25 mg total) at noon and 1 capsule (25 mg total) before bedtime. zinc gluconate 50 mg tablet Take 1 tablet (50 mg total) by mouth in the morning. No current facility-administered medications for this visit. Chief Complaint Patient presents with Follow-up EST PT F/U 6 MS L/S LLD History of Present Illness I last saw this 59-year-old 03/2024 He is status post drug-eluting stent in May of 2023 He denies syncope, palpitations or edema His activity has been limited by back pain He is . 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 2. Otherwise nonobstructive coronary arterydisease. 3. Normal left ventricular end- diastolic pressure. Recommendations: 1. Post PCI care. 2. Risk factor modification Percutaneous coronary intervention Result Date: 06/11/2023 Conclusion: 1. Significant obstructive coronary disease with high-grade distal right coronary artery stenosis successfully stented with drug-eluting stent. 2. Otherwise nonobstructive coronary arterydisease. 3. Normal left ventricular end- diastolic pressure. Recommendations: 1. Post PCI care. 2. Risk factor modification CAROTID: No results found. CXR: No results found. Lipid Profile: Lab Results Component Value Date Cholesterol 129 (L) 06/10/2023 Cholesterol:HDL Ratio 4.0 06/10/2023 HDL Cholesterol 32 (L) 06/10/2023 Triglycerides 89 06/10/2023 LDL (calc) 79 06/10/2023 Past Medical History: Diagnosis Date Allergic Seasonal Arthritis Asthma DM2 (diabetes mellitus, type 2) ([facility] 06/10/2023 DVT (deep venous thrombosis) ([facility] chronic LLE on Eliquis Hypertension Obesity Visual impairment Past Surgical History: Procedure Laterality Date APPENDECTOMY ARTHROSCOPY MENISCECTOMY KNEE & CPT 75329 Left 09/20/2021 Performed by Mason Vang Jr., DO at [facility] Cardiac catheterization N/A 06/11/2023 Performed by Andre Cline MD at [facility] CARDIAC CATH LABS CARPAL TUNNEL RELEASE Bilateral Coronary angiogram and left ventricular gram/pressure N/A 06/11/2023 Performed by Andre Cline MD at [facility] CARDIAC CATH LABS HERNIA REPAIR x4 NECK SURGERY C6&7 [facility] 2006 SHOULDER ARTHROSCOPY Stent drug-eluting right coronary artery N/A 06/11/2023 Performed by Andre Cline MD at [facility] CARDIAC CATH LABS UMBILICAL HERNIA REPAIR Family History Problem Relation Age of Onset [...] and Sexual Activity Alcohol use: Yes Comment: Maybe 4 beers a month Drug use: Never Sexual activity: Yes Partners: Female Other Topics Concern Caffeine Use No Social History Narrative Not on file Social Drivers of Health Financial Resource Strain: Not on file Food Insecurity: No Food Insecurity (10/20/2024) Hunger Screening Food Insecurity - Worry: Never [...] Musculoskeletal: Positive for back pain. Gastrointestinal: Negative. Genitourinary: Negative. Neurological: Negative. Psychiatric/Behavioral: Positive for depression. The patient is nervous/anxious. Allergic/Immunologic: Positive for environmental allergies. CARDIOVASCULAR: Please review HPI. Physical Examination General appearance: Alert, oriented and cooperative. In no acute distress.pleasant Skin: Warm and dry to touch. Respiratory: Clear to auscultation bilaterally, no use of accessory muscles. Cardiovascular: RRR with normal S1 and S2 with no murmurs. Musculoskeletal: No peripheral edema. VITAL SIGNS: BP 128/72 Pulse 60 Ht 180.3 cm (5' 10.98 ) Wt (!) 166.9 kg (368 lb) SpO2 96% BMI 51.35 kg/m No orders of the defined types were placed in this encounter. Medications Discontinued During This Encounter Medication Reason albuterol (PROVENTIL HFA;VENTOLIN HFA) 90 mcg/actuation inhaler buPROPion XL (WELLBUTRIN XL) 150 mg 24 hr tablet Therapy completed ezetimibe (ZETIA) 10 mg tablet Therapy completed furosemide (LASIX) 20 mg tablet Patient Stopped On Own metFORMIN (GLUCOPHAGE) 500 mg tablet Therapy completed naltrexone (REVIA) 50 mg tablet Therapy completed IMPRESSIONS/PLAN 1. ASCVD (arteriosclerotic cardiovascular disease) 2. Essential (primary) hypertension 3. Mixed hyperlipidemia 1. ASCVD without angina --05/2023 drug-eluting stent to the RCA 2. Primary hypertension, controlled 3. Hyperlipidemia --atorvastatin --labs 08/2024 4. Type 2 diabetes --08/2024 hemoglobin A1c 6.6 5. Obstructive sleep apnea 6. Chronic deep vein thrombosis --Eliquis 7. BMI >50 Discussed the continued importance of diet and exercise. Patient will try to find an exercise location that may have water activity. He is working very hard to be a support to his around the house. Back pain has very much been his limiting factor TODAYS ORDERS No orders of the defined types were placed in this encounter. FOLLOW UP Return for 7-9 months. PCP: Maya Mattson MD Referring Physician: Maya Mattson MD [address] [place] [address] documented in this encounter[facility]04-25-2025 Miscellaneous Notes* Telephone Encounter - Maya Hubbard CMA - 10/17/2024 10:00 AM EDT Left message for patient to remind them to bring their most current medication list with them to their appointment. documented in this encounterUpper Valley [facility] Center04-25-2025 Telephone encounter Note* Telephone Encounter - Maya Hubbard CMA - 10/17/2024 10:00 AM EDT Left message for patient to remind them to bring their most current medication list with them to their appointment. [facility]03[facility] History of Present illness Narrative* Maya Mattson MD - 09/18/2024 11:10 AM EDT Images from the original note were not included. Dirk Frank is a 59 y.o. male presents with chief complaint of Diabetes HPI: HPI Patient presents today for follow up on diabetes and hypertension. Due for A1c and microalbumin. Ptstates he stopped taking the metformin due to the diarrhea. He also states he has arthritis in his hand as well has one of his fingers locking up. He wants to become more active but can't due to his back pain. History of Present Illness The patient presents for evaluation of diabetes, back pain, and trigger finger. He has discontinued metformin due to severe diarrhea. Despite this, he has been able to maintain his blood glucose levels around 114 to 115, occasionally dropping to 100. He has previously attempted weight loss injections, but his insurance did not cover them. He has made dietary modifications, including the addition of almond milk to his diet. He has also tried hypnosis for weight loss, but it was ineffective. He experiences significant back pain, which limits his mobility and daily activities. He has been advised to undergo back surgery but has declined. He is currently unemployed and attempts to stay active at home, but even short walks result in severe back pain. He uses a TENS device for pain management and takes muscle relaxers at night to aid sleep. He has been informed about the potential benefits of pool therapy for his back pain. He reports experiencing arthritis in his hands, with one finger currently locked. He also experiences difficulty making a fist upon waking due to stiffness, which improves with movement. He has a history of carpal tunnel syndrome and is unsure if this could be contributing to his current symptoms. MEDICATIONS Discontinued: Metformin SUBJECTIVE: MEDICATIONS: Current Outpatient Medications Medication Instructions apixaban (ELIQUIS) 5 mg, Oral, 2 times daily atorvastatin (LIPITOR) 40 mg, Oral, Daily RT Blood Glucose Monitoring Suppl (True Metrix Meter) w/Device kit USE DIRECTED to test BLOOD SUGARTHREE TIMES DAILY carvedilol (COREG) 12.5 mg, Oral, 2 times daily with meals clopidogrel (PLAVIX) 75 mg, Daily RT diazePAM (Valium) 10 MG tablet TAKE 1 TABLET BY MOUTH PRIOR TO PROCEDURE Drug [place] Unilet Lancets 30G misc USE DIRECTED to test BLOOD SUGAR THREE TIMES DAILY [employer] Blood Glucose Test test strip Use strip as directed by glucometer lisinopril 10 mg, Oral, Daily Mounjaro 2.5 mg, Subcutaneous, Weekly Multiple Vitamin (Multivitamin Adult) tablet 1 tablet, Daily nitroglycerin (NITROSTAT) 0.3 mg, Daily PRN pantoprazole (PROTONIX) 40 mg, Oral, Daily before breakfast pregabalin (LYRICA) 50 mg, 3 times daily tiZANidine (ZANAFLEX) 4 mg, 2 times daily vitamin C 100 mg, Daily zinc gluconate 50 mg, Daily I have reviewed and reconciled the history and medication list with the patient today. REVIEW OF SYMPTOMS: Review of Systems OBJECTIVE: Visit Vitals BP 132/80 Pulse 57 Ht 5' 11 Wt 365 lb SpO2 96% BMI 50.91 kg/m Smoking Status Never BSA 2.88 m Physical Exam Vitals and nursing note reviewed. Constitutional: Appearance: Normal appearance. HENT: Head: Normocephalic and atraumatic. Cardiovascular: Rate and Rhythm: Normal rate and regular rhythm. Pulses: Normal pulses. Heart sounds: Normal heart sounds. Pulmonary: Effort: Pulmonary effort is normal. Breath sounds: Normal breath sounds. Musculoskeletal: Cervical back: Normal range of motion and neck supple. Comments: Middle finger on left hand gets stuck in flexed position. No redness or swelling of joints. Neurological: Mental Status: He is alert. Psychiatric: Mood and Affect: Mood normal. ASSESSMENT AND PLAN: Assessment & Plan 1. Diabetes mellitus. His A1c level is currently at 6.6, indicating that his blood glucose levels are within the diabeticrange. He has discontinued metformin due to severe diarrhea. A prescription for Ozempic, a weight loss injection, will be provided to see if it is covered by his insurance. If approved, instructions on how to administer the injection will be given. He is advised to reduce his food intake and modify his diet to prevent potential nausea or vomiting associated with the medication. Blood work will beordered to monitor his cholesterol, kidney function, and liver function. A urine test will also be conducted to check for sugar levels. 2. Back pain. He has been advised to consider pool therapy at the [facility] as a potential treatment option. Weight loss is recommended to alleviate some of the strain on his back, which may help improve his condition. 3. Trigger finger. He reports significant stiffness and difficulty making a fist in the morning. Tests for rheumatoid arthritis and other forms of arthritis will be conducted to determine the underlying cause of his symptoms. Assessment/Plan Problem List Items Addressed This Visit Benign essential hypertension ([facility]/HCC) Type 2 diabetes mellitus without complication, without long-term current use of insulin ([facility]) -Primary Relevant Medications Tirzepatide (Mounjaro) 2.5 MG/0.5ML solution auto-injector Other Relevant Orders POCT Glycated hemoglobin, total (Completed) Microalbumin / creatinine urine ratio ASCVD (arteriosclerotic cardiovascular disease) ([facility]) Relevant Orders Lipid panel Comprehensive metabolic panel Other Visit Diagnoses Arthralgia of both hands Relevant Orders Rheumatoid factor MIMI Morbid (severe) obesity due to excess calories ([facility]) Relevant Orders Cortisol Body mass index (BMI) 45.0-49.9, adult ([facility]) Relevant Orders Cortisol Trigger middle finger of left hand documented in this encounterGolden Valley Memorial [id number] Miscellaneous Notes* Telephone Encounter - Danielle Murillo CMA - 08/26/2024 9:51 AM EST EMPANELMENT OUTREACH Dirk Frank has been contacted in effort to establish and/or re-establish care as a new patient with [facility]: Yes Outreach Date: August 26, 2024 Outreach Reason: Attribution Outreach Method: Telephone Outreach Attempt: First Attempt Outreach Outcome: Contacted Patient New Patient Appointment: Declined Attributed Provider: Nara Ugalde Additional Comments: Patient states that he is following Maya Mattson. He states that the insurance company has the wrong Nara listed. He will call and update his carrier. documented in this encounterUpper [facility] Center03-04-2025 Telephone encounter Note* Telephone Encounter - Danielle Murillo CMA - 08/26/2024 9:51 AM EST EMPANEENT OUTREACH Dirk Frank has been contacted in effort to establish and/or re-establish care as a new patient with [facility]: Yes Outreach Date: August 26, 2024 Outreach Reason: Attribution Outreach Method: Telephone Outreach Attempt: First Attempt Outreach Outcome: Contacted Patient New Patient Appointment: Declined Attributed Provider: Nara Ugalde Additional Comments: Patient states that he is following Maya Mattson. He states that the insurance company has the wrong Nara listed. He will call and update his carrier. [facility]12-19-[facility] Miscellaneous Notes* Telephone Encounter - Kayy Kirkpatrick RN - 06/12/2024 3:43 PM EST Received p/c from pt. Had Cath and stents 06/11/23. Remembers being told to take brilinta for a year. Now the year is over. Wants to know if should remain on Brilinta. Expense isn't an issue. Pt is on Eliquis for history of DVT. Not taking ASA as of now. Last saw LLD 03/28/24 ( off) Will send to covering * Telephone Encounter - Manuel Monroe DO - 06/12/2024 3:43 PM EST Ideally should be seen in the office to discuss further Thank you HM * Telephone Encounter - Kayy Kirkpatrick RN - 06/12/2024 3:43 PM EST Pt is wondering whether needs to stay on Brilinta. Had Cath and stents 06/11/23. Remembers being told to take brilinta for a year. Now the year is over. Wants to know if should remain on Brilinta. Expense isn't an issue. Pt is on Eliquis for history of DVT. Not taking ASA as of now. Last saw LLD 03/28/24 * Telephone Encounter - Mayur Reddy MD - 06/12/2024 3:43 PM EST May discontinue Brilinta but should start Plavix 75 mg once daily. This will be the antiplatelet that he continues on with his history of stent to the RCA. His aspirin was discontinued previously as he is also on anticoagulant Eliquis * Telephone Encounter - Kayy Kirkpatrick RN - 06/12/2024 3:43 PM EST Response called to pt documented in this [facility]St[facility] [employer] (acquired by [employer] in 2014)[id number] Telephone encounter Note* Telephone Encounter - Kayy Kirkpatrick RN - 06/12/2024 3:43 PM EST Received p/c from pt. Had Cath and stents 06/11/23. Remembers being told to take brilinta for a year. Now the year is over. Wants to know if should remain on Brilinta. Expense isn't an issue. Pt is on Eliquis for history of DVT. Not taking ASA as of now. Last saw LLD 03/28/24 ( off) Will send to [facility] Right9012-19-2024 Telephone encounter Note* Telephone Encounter - Manuel Monroe DO - 06/12/2024 3:43 PM EST Ideally should be seen in the office to discuss further Thank you [employer] Work Phone: [phone] Telephone encounter Note* Telephone Encounter - Kayy Kirkpatrick RN - 06/12/2024 3:43 PM EST Pt is wondering whether needs to stay on Brilinta. Had Cath and stents 06/11/23. Remembers being told to take brilinta for a year. Now the year is over. Wants to know if should remain on Brilinta. Expense isn't an issue. Pt is on Eliquis for history of DVT. Not taking ASA as of now. Last saw LLD 03/28/24 Right[employer]012-19-2024 Telephone encounter Note* Telephone Encounter - Mayur Reddy MD - 06/12/2024 3:43 PM EST May discontinue Brilinta but should start Plavix 75 mg once daily. This will be the antiplatelet that he continues on with his history of stent to the RCA. His aspirin was discontinued previously as he is also on anticoagulant Eliquis Right9012-19-2024 Telephone encounter Note* Telephone Encounter - Kayy Kirkpatrick RN - 06/12/2024 3:43 PM EST Response called to pt [facility]12-03-2024 Telephone encounter Note* Telephone Encounter - Sarah Del Cid - 05/27/2024 12:22 PM EST Pt called back and was notified of suggestion [facility] [id number] Miscellaneous Notes* Telephone Encounter - Sarah Del Cid - 05/27/2024 12:22 PM EST Pt called back and was notified of suggestion * Telephone Encounter - Maya Mattson MD - 05/27/2024 11:38 AM EST He should check with cardiology on refilling the brilinta. documented in this encounterGolden Valley Memorial [id number] Telephone encounter Note* Telephone Encounter - Maya Mattson MD - 05/27/2024 11:38 AM EST He should check with cardiology on refilling the brilinta. [facility] [id number] Telephone encounter Note* Telephone Encounter - Maya Mattson MD - 05/27/2024 11:37 AM EST Refills sent. [facility] [id number] Miscellaneous Notes* Telephone Encounter - Maya Mattson MD - 05/27/2024 11:37 AM EST Refills sent. * Telephone Encounter - Ernesto Golden - 05/26/2024 3:07 PM EST REFILL ALSO NEEDED FOR - BRILINTA [facility] documented in this [facility]12-02-2024 Telephone encounter Note* Telephone Encounter - Ernesto Golden - 05/26/2024 3:07 PM EST REFILL ALSO NEEDED FOR - BRILINTA [facility] [place] [facility] [id number] Telephone encounter Note* Telephone Encounter - Stephanie Pelaez MA - 2024 1:40 PM EST We received a notification from the pharmacy asking if pt is taking his Lisinopril and Atorvastatin. Patient states he is. [facility] [id number] Miscellaneous Notes* Telephone Encounter - Stephanie Pelaez MA - 2024 1:40 PM EST We received a notification from the pharmacy asking if pt is taking his Lisinopril and Atorvastatin. Patient states he is. * Telephone Encounter - Jory Kruse MA - 04/30/2024 9:04 AM EST Approving, but needs appt for additional refills. documented in this [facility]11-06-2024 Telephone encounter Note* Telephone Encounter - Jory Kruse MA - 04/30/2024 9:04 AM EST Approving, but needs appt for additional refills. [id number] History of Present illness Narrative* Mayur Reddy MD - 03/28/2024 8:30 AM EDT Dirk Frank Date of visit: 03/28/2024 Date of : 1965 Age: 58 y.o. Patient Active Problem List Diagnosis Essential (primary) hypertension Anxiety Gastroesophageal reflux disease without esophagitis Obstructive sleep apnea syndrome BMI 45.0-49.9, adult ([facility] Ventral hernia Chronic deep vein thrombosis (DVT) of lower extremity ([facility]) DM2 (diabetes mellitus, type 2) ([facility]) ASCVD (arteriosclerotic cardiovascular disease) Mixed hyperlipidemia Allergies [...] by mouth in the morning and 1 tablet(90 mg total) before bedtime. 180 tablet 2 [...] is . 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 2. Otherwise nonobstructive coronary arterydisease. 3. Normal left ventricular end- diastolic pressure. Recommendations: 1. Post PCI care. 2. Risk factor modification Percutaneous coronary intervention Result Date: 06/11/2023 Conclusion: 1. Significant obstructive coronary disease with high-grade distal right coronary artery stenosis successfully stented with drug-eluting stent. 2. Otherwise nonobstructive coronary arterydisease. 3. Normal left ventricular end- diastolic pressure. Recommendations: 1. Post PCI care. 2. [...] Arthritis Asthma DM2 (diabetes mellitus, type 2) ([facility]) 06/10/2023 DVT (deep venous thrombosis) ([facility] chronic LLE on Eliquis Hypertension Obesity Visual impairment Past Surgical History: Procedure Laterality Date APPENDECTOMY ARTHROSCOPY MENISCECTOMY KNEE & CPT 93309 Left 09/20/2021 Performed by Mason Vang Jr., DO at [facility] Cardiac catheterization N/A 06/11/2023 Performed by Andre Cline MD at [facility] CARDIAC CATH LABS CARPAL TUNNEL RELEASE Bilateral Coronary angiogram and left ventricular gram/pressure N/A 06/11/2023 Performed by Andre Cline MD at [facility] CARDIAC CATH LABS HERNIA REPAIR x4 NECK SURGERY C6&7 [facility] 2006 SHOULDER ARTHROSCOPY Stent drug-eluting right coronary artery N/A 06/11/2023 Performed by Andre Cline MD at [facility] CARDIAC CATH LABS Family History Problem [...] Referring Physician: Maya Mattson MD [address] [place] [address] documented in this [facility]10-03-2024 Miscellaneous Notes* Telephone Encounter - Maya Hubbard CMA - 03/27/2024 8:55 AM EDT Called patient to remind them to bring their most current copy of their medication list with them to their appt. Patient verbalizes understanding. documented in this encounterUpper Valley [facility] Center10-03-2024 Telephone encounter Note* Telephone Encounter - Maya Hubbard CMA - 03/27/2024 8:55 AM EDT Called patient to remind them to bring their most current copy of their medication list with them to their appt. Patient verbalizes understanding. [facility]09-09-2024 Telephone encounter Note* Telephone Encounter - Maya Mattson MD - 03/03/2024 2:11 PM EDT Refills sent. [facility] [id number] Miscellaneous Notes* Telephone Encounter - Maya Mattson MD - 03/03/2024 2:11 PM EDT Refills sent. documented in this encounterGolden Valley Memorial [id number] Miscellaneous Notes* Telephone Encounter - Danielle Murillo CMA - 11/27/2023 10:56 AM EDT EMPANEENT OUTREACH Dirk Frank has been contacted in effort to establish and/or re-establish care as a new patient with [facility]: Yes Outreach Date: November 27, 2023 Outreach Reason: Attribution Outreach Method: Telephone Outreach Attempt: First Attempt Outreach Outcome: Contacted Patient New Patient Appointment: Declined Attributed Provider: Nara Ugalde CNP Additional Comments: Patient states that he has a primary care provider and will reach out to his insurance carrier to have them update. documented in this encounterUpper Valley Medical Center06-04-2024 Telephone encounter Note* Telephone Encounter - Danielle Murillo CMA - 11/27/2023 10:56 AM EDT EMPANELMENT OUTREACH Dirk Frank has been contacted in effort to establish and/or re-establish care as a new patient with [facility]: Yes Outreach Date: November 27, 2023 Outreach Reason: Attribution Outreach Method: Telephone Outreach Attempt: First Attempt Outreach Outcome: Contacted Patient New Patient Appointment: Declined Attributed Provider: Nara Ugalde CNP Additional Comments: Patient states that he has a primary care provider and will reach out to his insurance carrier to have them update. [facility]05-22-2024 History of Present illness Narrative* Mayur Reddy MD - 11/14/2023 2:00 PM EDT Dirk Frank Date of visit: 11/14/2023 Date of : 1965 Age: 58 y.o. Patient Active Problem List Diagnosis Essential (primary) hypertension Anxiety Gastroesophageal reflux disease without esophagitis Obstructive sleep apnea syndrome Morbid obesity ([facility]) Ventral hernia Chronic deep vein thrombosis (DVT) of lower extremity ([facility]) ACS (acute coronary syndrome) [place] Acute coronary syndrome ([facility]) Unstable angina ([facility] DM2 (diabetes mellitus, type 2) ([facility] Allergies Allergen Reactions Amoxicillin Other Reaction(s): Unknown [...] by mouth in the morning and 1 tablet(90 mg total) before bedtime. 180 tablet 2 [...] a wheelbarrow. With that activity he had mildlyincreased shortness of breath and a feeling in [...] with drug-eluting stent. 2. Otherwise nonobstructive coronary arterydisease. 3. Normal left ventricular end- diastolic pressure. Recommendations: 1. Post PCI care. 2. Risk factor modification Percutaneous coronary intervention Result Date: 06/11/2023 Conclusion: 1. Significant obstructive coronary disease with high-grade distal right coronary artery stenosis successfully stented with drug-eluting stent. 2. Otherwise nonobstructive coronary arterydisease. 3. Normal left ventricular end- diastolic pressure. Recommendations: 1. Post PCI care. 2. [...] Arthritis Asthma DM2 (diabetes mellitus, type 2) ([facility] 06/10/2023 DVT (deep venous thrombosis) ([facility] chronic LLE on Eliquis Hypertension Obesity Visual impairment Past Surgical History: Procedure Laterality Date APPENDECTOMY ARTHROSCOPY MENISCECTOMY KNEE & CPT 70185 Left 09/20/2021 Performed by Mason Vang Jr., DO at [facility] Cardiac catheterization N/A 06/11/2023 Performed by Andre Cline MD at [facility] CARDIAC CATH LABS CARPAL TUNNEL RELEASE Bilateral Coronary angiogram and left ventricular gram/pressure N/A 06/11/2023 Performed by Andre Cline MD at [facility] CARDIAC CATH LABS HERNIA REPAIR x4 NECK SURGERY C6&7 [facility] 2006 SHOULDER ARTHROSCOPY Stent drug-eluting right coronary artery N/A 06/11/2023 Performed by Andre Cline MD at [facility] CARDIAC CATH LABS Family History Problem [...] Patient does feel that with activity the discomfortis improving. We discussed that he should return if he is not continuing to improve Keep expected follow-up appointment TODAYS ORDERS Orders Placed This Encounter Procedures POCT EKG FOLLOW UP Return for March appointment. PCP: Maya Mattson MD Referring Physician: Maya Mattson MD [address] [place] [address] documented in this encounterUpper Valley Medical Center05-21-2024 Miscellaneous Notes* Telephone Encounter - Maya Hubbard CMA - 11/13/2023 10:49 AM EDT Called patient to remind them to bring their most current copy of their medication list with them to their appt. Patient verbalizes understanding. documented in this encounterUpper Valley Medical Center05-21-2024 Telephone encounter Note* Telephone Encounter - Maya Hubbard CMA - 11/13/2023 10:49 AM EDT Called patient to remind them to bring their most current copy of their medication list with them to their appt. Patient verbalizes understanding. [facility]05-21-2024 Miscellaneous Notes* Telephone Encounter - Carley Winston RN - 11/13/2023 8:33 AM EDT Pt calls with c/o having some increased sob and mild chest discomfort over past few weeks while outdoing yard work. He had cath/stent back in May and finished cardiac rehab. Advised if active chest pain needs to go to ER for evaluation and pt understood. F/u appt made for tomorrow in cancellation spot. documented in this encounterUniversity Hospitals [facility] CenterF[facility]05-21-2024 Telephone encounter Note* Telephone Encounter - Carley Winston RN - 11/13/2023 8:33 AM EDT Pt calls with c/o having some increased sob and mild chest discomfort over past few weeks while outdoing yard work. He had cath/stent back in May and finished cardiac rehab. Advised if active chest pain needs to go to ER for evaluation and pt understood. F/u appt made for tomorrow in cancellation spot. [facility] [id number] Miscellaneous Notes* Telephone Encounter - Yesika Fortune RN - 10/05/2023 1:42 PM EDT Pt calls office stating that he is [...] appears that Brilinta script was from PCP. Director Of Infection Prevention will message physician that pt last saw to clarify. * Telephone Encounter - Keaton Lopez MD - 10/05/2023 1:42 PM EDT So just stay on Brilinta and not take Plavix * Telephone Encounter - Yesika Fortune RN - 10/05/2023 1:42 PM EDT Pt updated to continue with Brilinta, requests new prescription, order pended, will have med list updated. * Telephone Encounter - RADHA Dalton - 10/05/2023 1:42 PM EDT signed documented in this encounterUpper Valley Medical Center04-12-2024 Telephone encounter Note* Telephone Encounter - Yesika Fortune RN - 10/05/2023 1:42 PM EDT Pt calls office stating that he is [...] appears that Brilinta script was from PCP. Director Of Infection Prevention will message physician that pt last saw to clarify. [id number] Telephone encounter Note* Telephone Encounter - Keaton Lopez MD - 10/05/2023 1:42 PM EDT So just stay on Brilinta and not take Pl[facility]ix [facility] [employer] Work Phone: [phone] Telephone encounter Note* Telephone Encounter - Yesika Fortune RN - 10/05/2023 1:42 PM EDT Pt updated to continue with Brilinta, requests new prescription, order pended, will have med list updated. [facility]04-12-2024 Telephone encounter Note* Telephone Encounter - RADHA Dalton - 10/05/2023 1:42 PM EDT signed [facility]03-28-2024 History of Present illness Narrative* Keaton Lopez MD - 09/20/2023 8:45 AM EDT Dirk Frank Date of visit: 09/20/2023 Date of : 1965 Age: 58 y.o. Patient Active Problem List Diagnosis Essential (primary) hypertension Anxiety Gastroesophageal reflux disease without esophagitis Obstructive sleep apnea syndrome Morbid obesity ([facility]) Ventral hernia Chronic deep vein thrombosis (DVT) of lower extremity ([facility]) ACS (acute coronary syndrome) ([facility]) Acute coronary syndrome ([facility]) Unstable angina ([facility]) DM2 (diabetes mellitus, type 2) ([facility] Allergies Allergen Reactions Amoxicillin Other Reaction(s): Unknown [...] Arthritis Asthma DM2 (diabetes mellitus, type 2) ([facility] 06/10/2023 DVT (deep venous thrombosis) ([facility] chronic LLE on Eliquis Hypertension Obesity Visual impairment No data recorded No data recorded No data recorded Past Surgical History: Procedure Laterality Date APPENDECTOMY ARTHROSCOPY MENISCECTOMY KNEE & CPT 31630 Left 09/20/2021 Performed by Mason Vang Jr., DO at [facility] Cardiac catheterization N/A 06/11/2023 Performed by Andre Cline MD at [facility] CARD[facility]AC CATH [facility]S CARPAL TUNNEL RELEASE Bilateral Coronary angiogram and left ventricular gram/pressure N/A 06/11/2023 Performed by Andre Cline MD at [facility] CARDIAC CATH [facility]S HERNIA REPAIR x4 NECK SURGERY C6&7 [facility] 2006 SHOULDER ARTHROSCOPY Stent drug-eluting right coronary artery N/A 06/11/2023 Performed by Andre Cline MD at [facility] C[facility]ATH [facility] Family History Problem [...] Referring Physician: Maya Mattson MD [address] [place] [address] [facility] Miscellaneous Notes* Telephone Encounter - Maya Hubbard CMA - 09/19/2023 9:53 AM EDT Called patient to remind them to bring their most current copy of their medication list with them to their appt. Patient verbalizes understanding. [facility] Telephone encounter Note* Telephone Encounter - Maya Hubbard CMA - 09/19/2023 9:53 AM EDT Called patient to remind them to bring their most current copy of their medication list with them to their appt. Patient verbalizes understanding. [facility]12-29-2023 History of Present illness Narrative* Eddie Valerio MD - 06/22/2023 11:30 AM EST Dirk Fermin Zac Date of visit: 06/22/2023 Date of : 1965 Age: 58 y.o. Patient Active Problem List Diagnosis Essential (primary) hypertension Anxiety Gastroesophageal reflux disease without esophagitis Obstructive sleep apnea syndrome Morbid obesity ([facility]) Ventral hernia Chronic deep vein thrombosis (DVT) of lower extremity ([facility] ACS (acute coronary syndrome) ([facility] Acute coronary syndrome ([facility]) Unstable angina ([facility]) DM2 (diabetes mellitus, type 2) ([facility]) Allergies Allergen Reactions Amoxicillin Other Reaction(s): Unknown [...] total) by mouth every 12 (twelve) hours. 60tablet 0 No current facility-administered medications for this visit. No chief complaint on file. History of Present Illness Patient here for follow-up visit. Discharge earlier this month from [facility] after being admitted with unstable angina underwent cardiac catheterization and received stent to the RCA. Has history of hypertension, diabetes mellitus, BLAIR morbid obesity. Patient stated that since he had the stent placement occasionally feels short of breath, thinks that it might be due to panic exercise usually occurs in the evening cholesterol bedtime. No orthopnea.Some mild leg edema. No chest pain reported or palpitations or dizziness. No tobacco use. Vitals stable. Past Medical History: Diagnosis Date Arthritis Asthma DM2 (diabetes mellitus, type 2) ([facility] 06/10/2023 DVT (deep venous thrombosis) ([facility] chronic LLE on Eliquis Hypertension Obesity Visual impairment No data recorded No data recorded No data recorded Past Surgical History: Procedure Laterality Date APPENDECTOMY ARTHROSCOPY MENISCECTOMY KNEE & CPT 44637 Left 09/20/2021 Performed by Mason Vang Jr., DO at [facility] Cardiac catheterization N/A 06/11/2023 Performed by Andre Cline MD at [facility] CARDI[facility] CATH [facility]S CARPAL TUNNEL RELEASE Bilateral Coronary angiogram and left ventricular gram/pressure N/A 06/11/2023 Performed by Andre Cline MD at [facility] CARDIAC CATH [facility]S HERNIA REPAIR x4 NECK SURGERY C6&7 [facility] 2006 SHOULDER ARTHROSCOPY Stent drug-eluting right coronary artery N/A 06/11/2023 Performed by Andre Cline MD at [facility]ATH [facility] Family History Problem [...] Morbid obesity with BMI of 50.0-59.9, adult ([facility]) Previous cardiac related labs and [...] Referring Physician: Maya Mattson MD [address] [place] [address] documented in [facility] encounterUpper [facility]12[facility]23 Miscellaneous Notes* Telephone Encounter - DEEPAK Mojica - 06/21/2023 11:07 AM EST Unable to remind patient of appointment. Phone was not accepting calls at this time.DEEPAK Mojica documented in this encounterUpper [facility]12[facility]23 Telephone encounter Note* Telephone Encounter - DEEPAK Mojica - 06/21/2023 11:07 AM EST Unable to remind patient of appointment. Phone was not accepting calls at this time.DEEPAK Mojica [facility]02-28-2022 Evaluation note* Encounter Date Diagnosis Assessment Notes Treatment Notes Treatment Clinical Notes Jul, Recurrent deep vein thrombosis (DVT) of left lower extremity (ICD- 10 - I82.402) This patient had an acute [...] that that is indicated in this scenario. [employer] Other Evaluation noteNo InformationNortJefferson [facility] [employer] Other Evaluation note* Diagnosis Morbid obesity (CMS/HCC)- Primary Morbid [...] Morbid obesity (CMS/HCC) Morbid obesity Atherosclerosis of samish coronary artery of samish heart without angina pectoris (CMS/HCC)- Primary Type [...] Intermediate coronary syndrome documented in this encounter [facility]Evaluation [facility]* Diagnosis Morbid obesity (CMS/HCC)- Primary [...] Morbid obesity (CMS/HCC) Morbid obesity Atherosclerosis of samish coronary artery of samish heart without angina pectoris (CMS/HCC)- Primary Type 2 diabetes mellitus without complication, without long-term current use of insulin (CMS/HCC) Morbid obesity (CMS/HCC) Morbid obesity Diarrhea, unspecified type Lumbar radiculopathy Thoracic or lumbosacral neuritis or radiculitis, unspecified Atherosclerosis of samish coronary artery of samish heart without angina pectoris (CMS/HCC) documented in this encounter [facility] HealthcareEvaluation note* Diagnosis Morbid obesity (CMS/HCC) Morbid obesity documented in this encounter [facility] HealthcareEvaluation note* Diagnosis S/P right coronary artery (RCA) stent placement- Primary Essential hypertension Unspecified essential hypertension Pure hypercholesterolemia History of DVT (deep vein thrombosis) Morbid obesity with BMI of 50.0-59.9, adult (CMS-HCC) SOB (shortness of breath) Shortness of breath [facility] Diagnosis SOB (shortness of breath) Shortness of breath [facility]* Diagnosis Acute coronary syndrome (CMS-HCC) Intermediate coronary syndrome [facility] Diagnosis Acute coronary syndrome (CMS-HCC) Intermediate coronary syndrome [facility] Diagnosis Acute coronary syndrome (CMS-HCC) Intermediate coronary syndrome [facility] Diagnosis Acute coronary syndrome (CMS-HCC) Intermediate coronary syndrome [facility]* Diagnosis Acute coronary syndrome (CMS-HCC) Intermediate coronary syndrome [facility] Diagnosis Acute coronary syndrome (CMS-HCC) Intermediate coronary syndrome [facility]* Diagnosis SOB (shortness of breath)- Primary Shortness of breath Essential (primary) hypertension Unspecified essential hypertension [facility]* Diagnosis Acute coronary syndrome (CMS-HCC) Intermediate coronary syndrome [facility]* Diagnosis Acute coronary syndrome (CMS-HCC) Intermediate coronary syndrome [facility]* Diagnosis Acute coronary syndrome (CMS-HCC) Intermediate coronary syndrome [facility]* Diagnosis Acute coronary syndrome (CMS-HCC) Intermediate coronary syndrome [facility]* Diagnosis Acute coronary syndrome (CMS-HCC) Intermediate coronary syndrome [facility]* Diagnosis Acute coronary syndrome (CMS-HCC) Intermediate coronary syndrome [facility]* Diagnosis Acute coronary syndrome (CMS-HCC) Intermediate coronary syndrome [facility]* Diagnosis Acute coronary syndrome (CMS-HCC) Intermediate coronary syndrome [facility]* Diagnosis Acute coronary syndrome (CMS-HCC) Intermediate coronary syndrome documented in this encounter [facility]* Diagnosis Acute coronary syndrome (CMS-HCC) Intermediate coronary syndrome documented in this encounter [facility] note* Diagnosis Acute coronary syndrome (CMS-HCC) Intermediate coronary syndrome documented in this encounter [facility] note* Diagnosis Acute coronary syndrome (CMS-HCC) Intermediate coronary syndrome [facility] Diagnosis Acute coronary syndrome (CMS-HCC) Intermediate coronary syndrome documented in this encounter [facility] note* Diagnosis Acute coronary syndrome (CMS-HCC) Intermediate coronary syndrome documented in this encounter [facility] note* Diagnosis Acute coronary syndrome (CMS-HCC) Intermediate coronary syndrome documented in this encounter [facility]* Diagnosis Acute coronary syndrome (CMS-HCC) Intermediate coronary syndrome documented in this encounter [facility]* Diagnosis ACS (acute coronary syndrome) (CMS-HCC)- Primary Intermediate coronary syndrome documented in this encounter [facility] note* Diagnosis Essential (primary) hypertension- Primary Unspecified essential hypertension documented in this encounter [facility] note* Diagnosis Essential (primary) hypertension- Primary Unspecified essential hypertension documented in this encounter [facility] note* Diagnosis Morbid obesity ([facility])- Primary Morbid obesity Type 2 diabetes mellitus without complication, without long-term current use of insulin ([facility]) Obstructive sleep apnea syndrome Obstructive sleep apnea [...] Morbid obesity (CMS/HCC) Morbid obesity Atherosclerosis of samish coronary artery of samish heart without angina pectoris (CMS/HCC)- Primary Type 2 diabetes mellitus without complication, without long-term current use of insulin (CMS/HCC) Morbid obesity (CMS/HCC) Morbid obesity Diarrhea, unspecified type Lumbar radiculopathy Thoracic or lumbosacral neuritis or radiculitis, unspecified Type 2 diabetes mellitus without complication, without long-term current use of insulin (CMS/HCC)- Primary Arthralgia of both hands ASCVD (arteriosclerotic cardiovascular disease) (CMS/HCC) Unspecified cardiovascular disease Benign essential hypertension (CMS/HCC) Essential hypertension, benign Morbid (severe) obesity due to excess calories (CMS/HCC) Body mass index (BMI) 45.0-49.9, adult (CMS/HCC) Trigger middle finger of left hand documented in this encounter [facility] HealthcareEvaluation note* Diagnosis ASCVD (arteriosclerotic cardiovascular disease)- Primary Unspecified cardiovascular disease Essential (primary) hypertension Unspecified essential hypertension Mixed hyperlipidemia documented in this encounter [facility] System[facility] note* Diagnosis Morbid obesity (CMS-HCC)- Primary Morbid obesity Type 2 diabetes mellitus without complication, without long-term current use of insulin (HCC) Obstructive sleep apnea syndrome Obstructive sleep apnea (adult) (pediatric) Benign essential hypertension Essential hypertension, benign Chronic deep vein thrombosis (DVT) of other vein of lower extremity, unspecified laterality (HCC)- Primary Benign essential hypertension Essential hypertension, benign Type 2 diabetes mellitus without complication, without long-term current use of insulin (HCC) Morbid obesity (CMS-HCC) Morbid obesity Other chest pain Chronic low back pain, unspecified back pain laterality, unspecified whether sciatica present Unable to walk Difficulty in walking Type 2 diabetes mellitus without complication, without long-term current use of insulin (HCC)- Primary Acute coronary syndrome (HCC) Intermediate coronary syndrome Benign essential hypertension Essential hypertension, benign Essential (primary) hypertension Unspecified essential hypertension Morbid obesity (CMS-HCC) Morbid obesity Type 2 diabetes mellitus without complication, without long-term current use of insulin (HCC)- Primary Morbid (severe) obesity due to excess calories (E66.01) Body mass index [BMI] 50.0-59.9, adult (Z68.43) Chronic embolism and thrombosis of other specified deep vein of unspecified lower extremity (I82.599) Obstructive sleep apnea syndrome Obstructive sleep apnea (adult) (pediatric) Benign essential hypertension Essential hypertension, benign Chronic deep vein thrombosis (DVT) of other vein of lower extremity, unspecified laterality (HCC) Morbid obesity (CMS-HCC) Morbid obesity Atherosclerosis of samish coronary artery of samish heart without angina pectoris- Primary Type 2 diabetes mellitus without complication, without long-term current use of insulin (HCC) Morbid obesity (CMS-HCC) Morbid obesity Diarrhea, unspecified type Lumbar radiculopathy Thoracic or lumbosacral neuritis or radiculitis, unspecified History of heart artery stent documented in this encounter [facility] HealthcareEvaluation note* Diagnosis Essential (primary) hypertension- Primary Unspecified essential hypertension ASCVD (arteriosclerotic cardiovascular disease) Unspecified cardiovascular disease documented in this encounter [facility] SystemEvaluation note* Diagnosis Morbid obesity ([facility]-HCC)- Primary Morbid obesity Type 2 diabetes mellitus without complication, without long-term current use of insulin (HCC) Obstructive sleep apnea syndrome Obstructive sleep apnea (adult) (pediatric) Benign essential hypertension Essential hypertension, benign Chronic deep vein thrombosis (DVT) of other vein of lower extremity, unspecified laterality (HCC)- Primary Benign essential hypertension Essential hypertension, benign Type 2 diabetes mellitus without complication, without long-term current use of insulin (HCC) Morbid obesity (CMS-HCC) Morbid obesity Other chest pain Chronic low back pain, unspecified back pain laterality, unspecified whether sciatica present Unable to walk Difficulty in walking Type 2 diabetes mellitus without complication, without long-term current use of insulin (HCC)- Primary Acute coronary syndrome (HCC) Intermediate coronary syndrome Benign essential hypertension Essential hypertension, benign Essential (primary) hypertension Unspecified essential hypertension Morbid obesity (CMS-HCC) Morbid obesity Type 2 diabetes mellitus without complication, without long-term current use of insulin (HCC)- Primary Morbid (severe) obesity due to excess calories (E66.01) Body mass index [BMI] 50.0-59.9, adult (Z68.43) Chronic embolism and thrombosis of other specified deep vein of unspecified lower extremity (I82.599) Obstructive sleep apnea syndrome Obstructive sleep apnea (adult) (pediatric) Benign essential hypertension Essential hypertension, benign Chronic deep vein thrombosis (DVT) of other vein of lower extremity, unspecified laterality (HCC) Morbid obesity ([facility]-HCC) Morbid obesity Atherosclerosis of samish coronary artery of samish heart without angina pectoris- Primary Type 2 diabetes mellitus without complication, without long-term current use of insulin (HCC) Morbid obesity (CMS-HCC) Morbid obesity Diarrhea, unspecified type Lumbar radiculopathy Thoracic or lumbosacral neuritis or radiculitis, unspecified Type 2 diabetes mellitus without complication, without long-term current use of insulin (HCC)- Primary Other chest pain Primary hypertension Unspecified essential hypertension BLAIR (obstructive sleep apnea) Obstructive sleep apnea (adult) (pediatric) documented in this encounter [facility] HealthcareEvaluation note* Diagnosis Morbid obesity ([facility]-HCC)- Primary Morbid obesity Type 2 diabetes mellitus without complication, without long-term current use of insulin (HCC) Obstructive sleep apnea syndrome Obstructive sleep apnea (adult) (pediatric) Benign essential hypertension Essential hypertension, benign Chronic deep vein thrombosis (DVT) of other vein of lower extremity, unspecified laterality (HCC)- Primary Benign essential hypertension Essential hypertension, benign Type 2 diabetes mellitus without complication, without long-term current use of insulin (HCC) Morbid obesity ([facility]-HCC) Morbid obesity Other chest pain Chronic low back pain, unspecified back pain laterality, unspecified whether sciatica present Unable to walk Difficulty in walking Type 2 diabetes mellitus without complication, without long-term current use of insulin (HCC)- Primary Acute coronary syndrome (HCC) Intermediate coronary syndrome Benign essential hypertension Essential hypertension, benign Essential (primary) hypertension Unspecified essential hypertension Morbid obesity ([facility]-H[facility]) Morbid obesity Type 2 diabetes mellitus without complication, without long-term current use of insulin (HCC)- Primary Morbid (severe) obesity due to excess calories (E66.01) Body mass index [BMI] 50.0-59.9, adult (Z68.43) Chronic embolism and thrombosis of other specified deep vein of unspecified lower extremity (I82.599) Obstructive sleep apnea syndrome Obstructive sleep apnea (adult) (pediatric) Benign essential hypertension Essential hypertension, benign Chronic deep vein thrombosis (DVT) of other vein of lower extremity, unspecified laterality (HCC) Morbid obesity ([facility]-HCC) Morbid obesity Atherosclerosis of samish coronary artery of samish heart without angina pectoris- Primary Type 2 diabetes mellitus without complication, without long-term current use of insulin (HCC) Morbid obesity ([facility]-HCC) Morbid obesity Diarrhea, unspecified type Lumbar radiculopathy Thoracic or lumbosacral neuritis or radiculitis, unspecified Type 2 diabetes mellitus without complication, without long-term current use of insulin (HCC)- Primary Other chest pain Primary hypertension Unspecified essential hypertension BLAIR (obstructive sleep apnea) Obstructive sleep apnea (adult) (pediatric) Type 2 diabetes mellitus without complication, without long-term current use of insulin (HCC)- Primary documented in this encounter [facility]* Diagnosis Morbid obesity ([facility]-HCC)- Primary Morbid obesity Type 2 diabetes mellitus without complication, without long-term current use of insulin (HCC) Obstructive sleep apnea syndrome Obstructive sleep apnea (adult) (pediatric) Benign essential hypertension Essential hypertension, benign Chronic deep vein thrombosis (DVT) of other vein of lower extremity, unspecified laterality (HCC)- Primary Benign essential hypertension Essential hypertension, benign Type 2 diabetes mellitus without complication, without long-term current use of insulin (HCC) Morbid obesity ([facility]-HCC) Morbid obesity Other chest pain Chronic low back pain, unspecified back pain laterality, unspecified whether sciatica present Unable to walk Difficulty in walking Type 2 diabetes mellitus without complication, without long-term current use of insulin (HCC)- Primary Acute coronary syndrome (HCC) Intermediate coronary syndrome Benign essential hypertension Essential hypertension, benign Essential (primary) hypertension Unspecified essential hypertension Morbid obesity ([facility]-HCC) Morbid obesity Type 2 diabetes mellitus without complication, without long-term current use of insulin (HCC)- Primary Morbid (severe) obesity due to excess calories (E66.01) Body mass index [BMI] 50.0-59.9, adult (Z68.43) Chronic embolism and thrombosis of other specified deep vein of unspecified lower extremity (I82.599) Obstructive sleep apnea syndrome Obstructive sleep apnea (adult) (pediatric) Benign essential hypertension Essential hypertension, benign Chronic deep vein thrombosis (DVT) of other vein of lower extremity, unspecified laterality (HCC) Morbid obesity ([facility]-HCC) Morbid obesity Atherosclerosis of samish coronary artery of samish heart without angina pectoris- Primary Type 2 diabetes mellitus without complication, without long-term current use of insulin (HCC) Morbid obesity ([facility]-H[facility]) Morbid obesity Diarrhea, unspecified type Lumbar radiculopathy Thoracic or lumbosacral neuritis or radiculitis, unspecified Type 2 diabetes mellitus without complication, without long-term current use of insulin (HCC)- Primary Other chest pain Primary hypertension Unspecified essential hypertension BLAIR (obstructive sleep apnea) Obstructive sleep apnea (adult) (pediatric) Type 2 diabetes mellitus without complication, without long-term current use of insulin (HCC) BLAIR (obstructive sleep apnea) Obstructive sleep apnea (adult) (pediatric) documented in this encounter [facility] HealthcareEvaluation note* Diagnosis Morbid obesity ([facility])- Primary Morbid obesity Type 2 diabetes mellitus without complication, without long-term current use of insulin (HCC) Obstructive sleep apnea syndrome Obstructive sleep apnea (adult) (pediatric) Benign essential hypertension Essential hypertension, benign Chronic deep vein thrombosis (DVT) of other vein of lower extremity, unspecified laterality (HCC)- Primary Benign essential hypertension Essential hypertension, benign Type 2 diabetes mellitus without complication, without long-term current use of insulin (HCC) Morbid obesity ([facility]) Morbid obesity Other chest pain Chronic low back pain, unspecified back pain laterality, unspecified whether sciatica present Unable to walk Difficulty in walking Type 2 diabetes mellitus without complication, without long-term current use of insulin (HCC)- Primary Acute coronary syndrome (HCC) Intermediate coronary syndrome Benign essential hypertension Essential hypertension, benign Essential (primary) hypertension Unspecified essential hypertension Morbid obesity ([facility]) Morbid obesity Type 2 diabetes mellitus without complication, without long-term current use of insulin (HCC)- Primary Morbid (severe) obesity due to excess calories (E66.01) Body mass index [BMI] 50.0-59.9, adult (Z68.43) Chronic embolism and thrombosis of other specified deep vein of unspecified lower extremity (I82.599) Obstructive sleep apnea syndrome Obstructive sleep apnea (adult) (pediatric) Benign essential hypertension Essential hypertension, benign Chronic deep vein thrombosis (DVT) of other vein of lower extremity, unspecified laterality (HCC) Morbid obesity ([facility]) Morbid obesity Atherosclerosis of samish coronary artery of samish heart without angina pectoris- Primary Type 2 diabetes mellitus without complication, without long-term current use of insulin (HCC) Morbid obesity (CMS-HCC) Morbid obesity Diarrhea, unspecified type Lumbar radiculopathy Thoracic or lumbosacral neuritis or radiculitis, unspecified Type 2 diabetes mellitus without complication, without long-term current use of insulin (HCC)- Primary Other chest pain Primary hypertension Unspecified essential hypertension BLAIR (obstructive sleep apnea) Obstructive sleep apnea (adult) (pediatric) Type 2 diabetes mellitus without complication, without long-term current use of insulin (HCC)- Primary [facility] Narrative - Reported* Type Description Date Medical History hypertension Medical Historysleep apneaMedical HistoryasthmaMedical Historyblood clot left lower legSurgical HistoryC6-C7 neck fusionSurgical Historyhernia repair x4 Surgical HistoryappendectomySurgical HistoryBilateral CTRSurgical Historyright shoulderHospitalization Historyappendectomy Drivewyze Other InstructionsNot on filedocumented in this encounter [...] on filedocumented in this encounter [facility]Reason [facility] (narrative)* Consultation (Routine) - Pending ReviewSpecialtyDiagnoses / ProceduresReferred By ContactReferred To ContactCardiac Rehabilitation Diagnoses S/P right coronary artery (RCA) stent placement Procedures Ambulatory referral to Cardiac Rehab Eddie Valerio MD [address] [place] [address] [facility] Cardiac Rehab Billing [address] [facility] [place] [address] Referral IDStatusReasonBear Creek DateExpiration DateVisits RequestedVisits [id number]/ [facility] for visit Narrative* Consultation (Routine) - AuthorizedSpecialtyDiagnoses / ProceduresReferred By ContactReferred To ContactCardiac Rehabilitation Diagnoses Acute coronary syndrome ([facility]) Procedures [facility] - Cardiac Rehab- [place], [place] Andre Cline MD [address] [place] [address] [facility] Cardiac Rehab Billing [address] [place] [address] Referral IDStatusReasonBear Creek DateExpiration DateVisits RequestedVisits [id number]/18/202312/17/[id number] [facility] for visit Narrative* Consultation (Routine) - Pending ReviewSpecialtyDiagnoses / ProceduresReferred By ContactReferred To [facility] Diagnoses Acute coronary syndrome ([facility]) Procedures [facility] - Cardiac Rehab- [place], [place] Andre Cline MD [address] [place] [address] [facility] Cardiac Rehab Billing [address] [place] [address] Referral IDStatusReasonStart DateExpiration DateVisits RequestedVisits [id number] [facility] Summary Purpose Family History No Family History Records FoundNo Family History Records FoundNo Family History Records FoundNo Family History Records FoundNo Family History Records FoundNo Family History Records FoundNo Family History Records Found Advance Directives Date ActivatedDate LcrcurzeuwrHcghhdwz19/17/2023 7:04 AM06/12/2023 7:16 PMCode StatusDate ActivatedDate InactivatedCommentsFull Code06/10/2023 7:04 AM 06/12/2023 7:16 PMCode StatusDate ActivatedDate InactivatedCommentsFull Code 06/10/2023 7:04 AM06/12/2023 7:16 PMDate ActivatedDate InactivatedComments 02/05/2025 12:21 AM02/05/2025 12:46 PMDate ActivatedDate InactivatedComments 06/10/2023 7:04 AM06/12/2023 7:16 PM Additional Source Comments (unrecognized sect ion and content) No Status Records FoundNo Status Records FoundNo Status Records FoundNo Status Records FoundNo Status Records FoundNo Status Records FoundNo Status Records Found INFORMATION SOURCE (unrecogn ized section and content) DATE CREATED AUTHOR 08/01/2021 [facility] 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 DATE CREATED AUTHOR AUTHOR'S ORGANIZ ATION 08/18/2021 [facility] DATE CREATED AUTHOR AUTHOR'S ORGANIZ ATION 04/18/2022 [facility] DATE CREATED AUTHOR AUTHOR'S ORGANIZ ATION 06/14/2023 [facility] DATE CREATED AUTHOR AUTHOR'S ORGANIZ ATION 11/21/2024 [facility] DATE CREATED AUTHOR AUTHOR'S ORGANIZ ATION 02/14/2025 [facility] DATE CREATED AUTHOR AUTHOR'S ORGANIZ ATION 02/14/2025 [facility] EPIC REASON FOR VISIT (unrecogniz ed section and content) ReasonCommentsMed RefillReasonCommentsFollow-upEST PT TTH s/p Cath/stent SCHED W/WIFEReasonOnset DateCommentsAttribution Lolfoxbw75/04/2024ReasonOnset Date Commentssob and mild chest rwmxaligia18/21/2024ReasonCommentsFollow-upEARLY FU CHEST PAINChest PainShortness of BreathReasonCommentsFollow-up3 MONTHReasonOnset DateCommentsBrilinta vs [id number]-upEST PT F/U 6 MS LABS DONE SCHED W/ PT L/S TMPReasonOnset DateCommentsMed Clkbns324Reason Onset DateCommentsattribution cmvdxulj80/04/2025ReasonCommentsDiabetesReason CommentsFollow-upEST PT F/U 6 MS L/S LLDReasonCommentsHospital Follow-upMED CHANGESShortness of BreathHypertensionReasonCommentsHospital Follow-up Care Teams (unrecognized sec tion and content) Team MemberRelationshipSpecialtyStart DateEnd Maya Mattson MD [address] [place] [address] [facility]11/28/22 Beryl Bautista NP [address] [facility] [place] [address] Nurse PractitionerBoston Hospital For Women Medicine11/28/22Team MemberRelationshipSpecialtyStart End Maya Mattson MD [address] [place] [address] [facility] - [facility]11/28/22 Beryl Bautista NP [address] [place] [address] Nurse PractitionerFamily Medicine11/28/22Team MemberRelationshipSpecialtyStart End Maya Mattson MD [address] [place] [address] [facility]11/28/22 Beryl Bautista NP [address] [place] [address] Nurse PractitionerFamily Medicine11/28/22Team MemberRelationshipSpecialtyStart DateEnd Date Maya Mattson MD [address] [place] [address] PCP - GeneralFamily Medicine11/28/22 Beryl Bautista NP [address] [place] [address] Nurse Practitionermily Medicine11/28/22Team MemberRelationshipSpecialtyStart DateEnd Date Maya Mattson MD [address] [place] [address] PCP - GeneralFamily Medicine08/15/17Team MemberRelationshipSpecialtyStart DateEnd Date Maya Mattson MD [address] [place] [address] PCP - GeneralFamily Medicine08/15/17Team MemberRelationshipSpecialtyStart DateEnd Date Maya Mattson MD [address] [place] [address] PCP - GeneralFamily Medicine08/15/17Team MemberRelationshipSpecialtyStart DateEnd Date Maya Mattson MD [address] [place] [address] PCP - GeneralFamily Medicine08/15/17Team MemberRelationshipSpecialtyStart DateEnd Date Maya Mattson MD [address] [place] [address] PCP - GeneralFamily Medicine08/15/17Team MemberRelationshipSpecialtyStart DateEnd Date Maya Mattson MD [address] [place] [address] PCP - GeneralFamily Medicine08/15/17Team MemberRelationshipSpecialtyStart DateEnd Date Maya Mattson MD [address] [place] [address] PCP - GeneralFamily Medicine08/15/17Team MemberRelationshipSpecialtyStart DateEnd Date Maya Mattson MD [address] [place] [address] PCP - GeneralFamily Medicine08/15/17Team MemberRelationshipSpecialtyStart DateEnd Date Maya Mattson MD [address] [place] [address] PCP - GeneralFamily Medicine08/15/17Team MemberRelationshipSpecialtyStart DateEnd Date Maya Mattson MD [address] [place] [address] PCP - GeneralFamily Medicine08/15/17Team MemberRelationshipSpecialtyStart DateEnd Date Maya Mattson MD [address] [place] [address] PCP - GeneralFamily Medicine2Team MemberRelationshipSpecialtyStart DateEnd Date Maya Mattson MD [address] [place] [address] PCP - GeneralFamily Medicine2Team MemberRelationshipSpecialtyStart DateEnd Date Maya Mattson MD [address] [place] [address] PCP - GeneralFamily Medicine2Team MemberRelationshipSpecialtyStart DateEnd Date Maay Mattson MD [address] [place] [address] PCP - GeneralFamily Medicine08/15/17Team MemberRelationshipSpecialtyStart DateEnd Date Maya Mattson MD [address] [place] [address] PCP - GeneralFamily Medicine2Team MemberRelationshipSpecialtyStart DateEnd Date Maya Mattson MD [address] [place] [address] PCP - GeneralFamily Medicine08/15/17Team MemberRelationshipSpecialtyStart DateEnd Date Maya Mattson MD [address] [place] [address] PCP - GeneralFamily Medicine2Team MemberRelationshipSpecialtyStart DateEnd Date Maya Mattson MD [address] [place] [address] PCP - GeneralFamily Medicine218Team MemberRelationshipSpecialtyStart DateEnd Date Maya Mattson MD [address] [place] [address] PCP - GeneralFamily Medicine2Team MemberRelationshipSpecialtyStart DateEnd Date Maya Mattson MD [address] [place] [address] PCP - GeneralFamily Medicine08/15/17Team MemberRelationshipSpecialtyStart DateEnd Date Maya Mattson MD [address] [place] [address] PCP - GeneralFamily Medicine08/15/17Team MemberRelationshipSpecialtyStart DateEnd Date Maya Mattson MD [address] [place] [address] PCP - GeneralFamily Medicine08/15/17Team MemberRelationshipSpecialtyStart DateEnd Date Maya Mattson MD [address] [place] [address] PCP - GeneralFamily Medicine08/15/17Team MemberRelationshipSpecialtyStart DateEnd Date Maya Mattson MD [address] [place] [address] PCP - GeneralFamily Medicine08/15/17Team MemberRelationshipSpecialtyStart DateEnd Date Maya Mattson MD [address] [place] [address] PCP - GeneralFamily Medicine2Team MemberRelationshipSpecialtyStart DateEnd Date Maya Mattson MD [address] [place] [address] PCP - GeneralFamily Medicine08/15/17Team MemberRelationshipSpecialtyStart DateEnd Date Maya Mattson MD [address] [place] [address] PCP - GeneralFamily Medicine08/15/17Team MemberRelationshipSpecialtyStart DateEnd Date Maya Mattson MD [address] [place] [address] PCP - GeneralFamily Medicine08/15/17Team MemberRelationshipSpecialtyStart DateEnd Date Maya Mattson MD [address] [place] [address] PCP - GeneralFamily Medicine08/15/17Team MemberRelationshipSpecialtyStart DateEnd Date Maya Mattson MD [address] [place] [address] PCP - GeneralFamily Medicine08/15/17Team MemberRelationshipSpecialtyStart DateEnd Date Maya Mattson MD [address] [place] [address] PCP - GeneralFamily Medicine08/15/17Team MemberRelationshipSpecialtyStart DateEnd Date Maya Mattson MD [address] [place] [address] PCP - GeneralFamily Medicine2/21/18Team MemberRelationshipSpecialtyStart DateEnd Date Maya Mattson MD [address] [place] [address] PCP - GeneralFamily Medicine08/15/17Team MemberRelationshipSpecialtyStart DateEnd Date Maya Mattson MD [address] [place] [address] PCP - GeneralFamily Medicine08/15/17Team MemberRelationshipSpecialtyStart DateEnd Date Maya Mattson MD [address] [place] [address] PCP - GeneralFamily Medicine08/15/17Team MemberRelationshipSpecialtyStart DateEnd Date Maya Mattson MD [address] [place] [address] PCP - GeneralFamily Medicine11/28/22 Beryl Bautista NP [address] [place] [address] Nurse Practitionermily Medicine11/28/22Team MemberRelationshipSpecialtyStart DateEnd Date Maya Mattson MD [address] [place] [address] PCP - GeneralFamily Medicine11/28/22 Beryl Bautista NP [address] [place] [address] Nurse Practitionermily Medicine11/28/22Team MemberRelationshipSpecialtyStart DateEnd Date Maya Mattson MD [address] [place] [address] [facility]CP - [facility]11/28/22 Beryl Bautista NP [address] [place] [address] Nurse PractitionerBoston Hospital For Women Medicine11/28/22Te MemberRelationshipSpecialtyStart DateEnd Date Maya Mattson MD [address] [place] [address] PCP - [facility]11/28/22 Beryl Bautista NP [address] [place] [address] [facility]Em[facility]11/28/22Te MemberRelationshipSpecialtyStart DateEnd Date Maya Mattson MD [address] [place] [address] [facility]CP - [facility]Em[facility]11/28/22 Beryl Bautista STUDENT SERVICES DIRECTOR [address] [place] [address] Nurse PractitionerBoston [facility] For Women Medicine11/28/22Te MemberRelationshipSpecialtyStart DateEnd Date Maya Mattson MD [address] [place] [address] PCP - [facility]11/28/22 Beryl Bautista NP [address] [place] [address] Nurse Pract[facility]erEm[facility]11/28/22Team MemberRelationshipSpecialtyStart DateEnd Date Maya Mattson MD [address] [place], [place] [address] [facility]11/28/22 Beryl Bautista NP [address] [place] [address] Nurse PractitionerEm[facility] University Hospital11/28/22 FOR RECORDS PERTAINING TO PATIENTS WHO ARE [...] BE BASED ON THE PRIMARY CLINICAL RECORDS. [facility]. provides no warranty or guarantee of the accuracy or completeness of information in this document.
--- NOTE | 2025-04-20 15:41 | PM.CN ---
Consult Note: HPI Data of Consult Patient: known to practice within the last 3 years Consult date: 04/20/25 Requesting Physician: Elayne Arreola MD Primary Care Provider: ALLISON MATTSON Consult Narrative Reason for consult: low back, bilateral leg pain Narrative: 59yom who presents for assessment. worsening low back, bilateral leg pain. has had increasing leg weakness. previously lumbar ct was denied. has continued in a series of provider directed home exercises >6 weeks, without benefit. uses tylenol#3, tizanidine. denies adverse med side effects. cc:: CC: Elayne Arreola MD Review of Systems ROS Status of ROS 10 or more systems reviewed and unremarkable except as noted in history and below [facility] Medical History Low back pain ?M54.50 - Low back pain, unspecified (ICD-10) Diabetes ?E11.9 - Type 2 diabetes mellitus without complications (ICD-10) Sleep apnea ?G47.30 - Sleep apnea, unspecified (ICD-10) Asthma ?J45.909 - Unspecified asthma, uncomplicated (ICD-10) Surgical History S/P left knee arthroscopy ?Z98.890 - Other specified postprocedural states (ICD-10) S/P arthroscopy of shoulder ?Z98.890 - Other specified postprocedural states (ICD-10) H/O cervical spine surgery ?Z98.890 - Other specified postprocedural states (ICD-10) History of umbilical hernia repair ?Z98.890 - Other specified postprocedural states (ICD-10) ?Z87.19 - Personal history of other diseases of the digestive system (ICD-10) S/P inguinal hernia repair ?Z98.890 - Other specified postprocedural states (ICD-10) ?Z87.19 - Personal history of other diseases of the digestive system (ICD-10) S/P carpal tunnel release ?Z98.890 - Other specified postprocedural states (ICD-10) History of appendectomy ?Z90.49 - Acquired absence of other specified parts of digestive tract (ICD-10) Meds Home Medications and Allergies Home Medications ?Medication ?Instructions ?Recorded ?Confirmed ?Type apixaban 5 mg tablet (Eliquis) 5 mg PO BID 04/23/23 01/28/24 History metformin 500 mg tablet 500 mg PO BID 04/23/23 01/28/24 History metoprolol tartrate 50 mg tablet 50 mg PO BID 04/23/23 01/28/24 History tizanidine 4 mg capsule (Zanaflex) 4 mg PO DAILY PRN muscle spasticity 04/23/23 08/11/24 History ascorbic acid (vitamin C) 500 mg 500 mg PO DAILY 10/11/23 01/28/24 History tablet (C-500) multivitamin 1 tab PO DAILY 10/11/23 01/28/24 History omega 2-sor-cza-fish oil 300 1 cap PO DAILY 10/11/23 01/28/24 History mg-1,000 mg capsule (Fish Oil) acetaminophen 300 mg-codeine 30 mg 1 tab PO BID PRN pain #14 tabs 06/30/24 Rx tablet tizanidine 4 mg capsule (Zanaflex) 4 mg PO DAILY PRN muscle 08/11/24 Rx spasticity #30 caps tramadol 50 mg tablet 50 mg PO TID PRN pain #90 tabs 11/10/24 Rx tizanidine 4 mg tablet 4 mg PO DAILY PRN muscle 04/20/25 Rx spasticity #30 tabs tramadol 50 mg tablet 50 mg PO TID PRN pain #90 tabs 04/20/25 Rx Allergies Allergy/AdvReac Type Severity Reaction Status Date / Time amoxicillin (From Augmentin) Allergy Unknown Gastrointestinal Verified 01/28/24 07:56 Upset clavulanic acid (From Allergy Unknown Gastrointestinal Verified 01/28/24 07:56 Augmentin) Upset zonisamide (From Zonegran) AdvReac Severe suicidal Verified 08/11/24 12:18 Exam Narrative Exam Narrative: Psych-alert and oriented x 3. Attentive and appropriate, constitutionally normal, displays normal mood and affect per situation. There are no obvious deficits in memory, reasoning, or intellect.? Skin-no obvious rashes, bruising, erythema noted to the patient's area of pain.? Extremities- extremities are warm with minimal edema and palpable pulses. Lumbar-tenderness to palpation noted in the lumbar spine and paraspinal musculature. Pain is elicited with flexion, extension, and lateral rotation of the lumbar spine. Range of motion is diminished with these motions. Facet loading maneuvers are positive.? Strength-noted to be unremarkable with the exception of decreased strength rated at 4 out of 5 in bilateral quadriceps femoris, anterior tibialis. Sensory-no notable sensory deficits in the bilateral lower extremities to touch or pinprick in all dermatomal distributions with the exception to decreased sensation to the bilateral L4, 5 dermatomal distribution Coordination remains intact.? Gait remains non-antalgic. Assessment and Plan Assessment and Plan (1) Lumbar stenosis with neurogenic claudication: Plan 59yom who presents for assessment. failed conservative measures, as noted. given worsening symptoms, will order lumbar ct without contrast. he is in agreement. meds reviewed, no changes. follow up after imaging.
== END 2025-04-20 13:57 | disposition home or self-care (01) ==
LOC: PM 13:58
PROVIDERS: PCP Family Medicine; Visit Provider Anesthesiology
DX: M48.062 Spinal stenosis, lumbar region with neurogenic claudication (principal)
CPT/HCPCS: G0463

== ENCOUNTER 2025-04-29 09:46 | Outpatient (OUT) | payer MEDICARE, SELFPAY ==
--- OUTSIDE RECORDS SUMMARY | 2025-04-29 09:49 | XMS_ITS | Encounter Summary ---
Author Organization [facility] Address [address] [place] [address] Care Team Providers Care Cosmetic Dentist Name Role Phone Maya Carter MD Primary Care Provider [phone] Beryl Suarez BRAZING MACHINE SETTER Unavailable Encounter Details DateTypeDepartmentCare Team (Latest Contact Info)Wfysowmtchx85/21/2025Telephone [facility] Medicine [address] [place] [address] Maya Carter MD [address] [place], [place] [id number] Social History Tobacco UseTypesPacks/DayYears UsedDateSmoking Tobacco: NeverSmokeless Tobacco: NeverAlcohol UseStandard Drinks/WeekCommentsYes3 (1 standard drink = 0.6 oz pure alcohol)PHQ-2AnswerDate RecordedPatient Health Questionnaire-2 [id number] Sex and Gender InformationValueDate RecordedSex Assigned at BirthNot on file Legal KitWuzl8509/06/2022 6:35 PM EDTGender IdentityNot on fileSexual Orientation [...] you increasing this? [facility] [place]. Thank you. documented in this encounter Plan of Treatment Not on file documented as of this encounter Visit Diagnoses Not on filedocumented in this encounter Care Teams Team MemberRelationshipSpecialtyStart DateEnd Date Maya Carter MD [address] [place] [address] PCP - GeneralFamily Medicine11/28/22 Beryl Suarez NP [address] [place] [address] Nurse PractitionerFamoly Medicine11/28/22documented as of this encounter
--- OUTSIDE RECORDS SUMMARY | 2025-04-29 09:50 | XMS_ITS | Clinical Summary ---
Author Organization [facility] Address [address] [place] [address] Care Team Providers Care Investment Banker Name Role Phone Maya Carter MD Primary Care Provider [phone] Beryl Suarez CORRAL BOSS Unavailable [phone] Allergies Active AllergyReactionsCriticalityNoted GstaEjlaihztHxxzvsweszw66/25/2023 Other Reaction(s): Unknown Amoxicillin-Pot Wfilgoaxnzt75/25/2023 Other Reaction(s): Unknown Clavulanic AcidGI fnvlqqmcnadItg58/05/9727HlkmruvjwKltjjxjr28/01/2024 Medications MedicationSigDispense QuantityRefillsLast FilledStart DateEnd DateStatus Multiple Vitamin (Multivitamin Adult) tablet Take 1 tablet by mouth in the morning.Active nitroglycerin (Nitrostat) 0.[address] 0.3 mg under the tongue Daily as needed for chest pain06/12/2023ctive [employer] Blood Glucose Test test strip Use strip as directed by bfftygpqwh46/19/2023ctive Drug [place] Unilet Lancets 30G misc USE DIRECTED to [...] TAKE 1 TABLET BY MOUTH PRIOR TO ZSASIGTTO09/17/2024ctive tiZANidine (Zanaflex) 4 MG tablet Take 4 [...] ASCVD (arteriosclerotic cardiovascular disease)03/28/2024Mixed hyperlipidemia 03/28/2024cute coronary imozoijm38/16/2023 Assessment & Plan (06/15/2023 12:33 PM EST): Had stenet placed last week. Unstable mukcpa7106/09/2023Type 2 diabetes mellitus without complication, without long-term current use of zbimpni1406/05/2023 Assessment & Plan (02/12/2025 3:43 PM EDT): [...] different issues. Unilateral primary osteoarthritis, left knee11/28/2022bnormal tflfyif4111/16/2022 Zglippc6611/16/2022enign essential klnipigisaqb29/25/2023 Assessment & Plan (07/19/2023 7:45 PM EST): Continue coreg. Well controlled. Assessment & Plan (06/15/2023 12:34 PM EST): Now controlled on coreg and lisinopril. Assessment & Plan (06/05/2023 11:05 PM EST): Add in lisinopril at 10 mg. Abbie djust medications to ge tthe BP under control. Assessment & Plan (12/28/2022 1:35 PM EDT): Stable on metoprolol. Acute left-sided low back pain with left-sided umjfwgyn94/25/2023Obstructive sleep apnea /25/2023 Assessment & Plan (07/19/2023 7:44 PM EST): Continue CPAP. Assessment & Plan (12/28/2022 1:35 PM EDT): Has not been wearing his CPAP as he can't get comfortable at night. Promises to try again 01/14. Primary rvvtjyxjtmgiyy34/25/2023Recurrent ventral ypytbv7611/16/2022Umbilical hernia without obstruction and without rumgggya93/25/2023Lumbar paraspinal muscle spasm11/13/2022Lumbar ycmekuasfjjur40/22/2023 Assessment & Plan (01/24/2024 7:29 PM EDT): Still following with pain mgmt. Dzehpdct85/22/2023hronic deep vein thrombosis (DVT) of lower extremity 10/03/2022 Overview (11/28/2022): Left leg Assessment & Plan (07/19/2023 7:45 PM EST): Maintained on eliquis. Assessment & Plan (06/05/2023 11:05 PM EST): He is on [employer] eliquis. History of psychiatric /08/2021Internal derangement of left knee 04/01/2021Gastroesophageal reflux disease without orvistapprc34/19/2016Hepatic sxryrcqqo65/19/2016Essential (primary) bavrlhgztssa05/19/2016Morbid obesity 06/06/2015 Assessment & Plan (07/19/2023 7:51 [...] or do much activity at all. Umbilical xmcojl8106/06/2015Ventral gpzvvi3006/06/2015BMI 45.0-49.9, adult06/06/2015 Aidjbddwov73/17/2014 Encounters DateTypeDepartmentCare DtwoJwkdlmgsudu88/21/2025Orders Only [facility] [address] [place] [phone] Maya Carter MD Type 2 diabetes mellitus without complication, without long-term current use of insulin (HCC) (Primary Dx)04/14/2025Telephone [facility] [address] [place] [phone] Maya Carter MD 03/11/2025Orders Only [facility] [address] [place] [address] Maya Carter MD Type 2 diabetes mellitus without complication, without long-term current use of insulin (HCC) (Primary Dx)03/11/2025Refill [facility] [address] [place] [address] Maya Carter MD Type 2 diabetes mellitus without complication, without long-term current use of insulin (HCC); BLAIR (obstructive sleep apnea)03/09/2025Refill [facility] [address] [place] [address] [phone] Nicole Mitchell NP Acute coronary syndrome (HCC)02/13/2025Telephone [facility] [address] [place] [address] Maya Carter MD 02/12/2025 2:40 PM EDTFollow-Up [facility] [address] [place] [address] Maya Carter MD Type 2 diabetes mellitus without complication, without long-term current use of insulin (HCC) (Primary Dx); Other chest pain; Primary hypertension ; BLAIR (obstructive sleep apnea)02/12/2025[facility] [address] [place] [address] Stephanie Pelaez MA 02/12/20252278Eansqw84/15/2025Patient Outreach [facility] [address] [place] [phone] Lina Rosa LPN from Last 3 Months Immunizations ImmunizationAdministration DatesNext DueInfluenza, injectable, quadrivalent, preservative free04/18/2016,05/09/2015,07/04/2014Influenza, seasonal, injectable, preservative free03/25/2013Influenza, seasonal, intradermal, preservative free07/04/2018,04/14/2013Td (adult), 5 Lf tetanus toxoid, preservative free, lupbdurc80/21/2013,03/25/2013Tdap1,05/15/2013, 03/28/2013,03/25/2013,04/14/2012 Family History Medical HistoryRelationNameCommentsProstate cancerFatheropen heart surgeryMother RelationNameStatusCommentsFatherDeceasedMotherAlive Social History Tobacco UseTypesPacks/DayYears UsedDateSmoking Tobacco: NeverSmokeless Tobacco: NeverAlcohol UseStandard Drinks/WeekCommentsYes3 (1 standard drink = 0.6 oz pure alcohol)PHQ-2AnswerDate RecordedPatient Health Questionnaire-2 Xpwck614 Sex and Gender InformationValueDate RecordedSex Assigned at BirthNot on file Legal BqvEeip8809/06/2022 6:35 PM EDTGender IdentityNot on fileSexual Orientation Not on file Last Filed Vital Signs Vital SignReadingTime TakenCommentsBlood Yrdefmdt021/7402/12/2025 2:46 PM EDT Mlcqa020002/12/2025 2:46 PM FVFYovdpvlazha00.2 ??C (97.1 ??F)06/22/2023 1:03 PM ESTRespiratory Rate--Oxygen Wubwcznjda80%02/12/2025 2:46 PM EDTInhaled Oxygen Concentration--Ragcpe577 kg (362 lb)02/12/2025 2:46 PM TOMTxorhv122.3 cm (5' 11 )02/12/2025 2:46 PM EDTBody Mass Index50.4908 2:46 PM EDT Plan of Treatment Health MaintenanceDue DateLast DoneCommentsCT Cbtuhlpjzmfs1967Colonoscopy 1967Colorectal Cancer Fxxcnasjx1967FIT-DNA1967FIT1967 FOBT1967Medicare Annual Wellness (AWV)1965 1769Uxutsnoexaqro1967 Pneumococcal Vaccine: Pediatrics (0 to 5 Years) and At-Risk Patients (6 to 64 Years) (1 of 2 - PCV)1986Diabetes: Urine Protein Dvnlphuvl69/25/2025 07/19/2023OVID-19 Vaccine ( - season)2025Influenza Vaccine (#1) /03/2019, 04/18/2016, 05/09/2015, Additional history existsDiabetes: Hemoglobin A1C/, 09/18/2024, 01/24/2024, Additional history existsDiabetes: Retinopathy Ylafmdsol88 Procedures Procedure NamePriorityDate/TimeAssociated DiagnosisCommentsPOCT GLYCATED HEMOGLOBIN, FGAQDRdysvgh04/21/2025 3:19 PM EDT Type 2 diabetes mellitus without complication, without long-term current use of insulin (HCC) MICROALBUMIN / CREATININE URINE JEXHRBhvktsk63/25/2024 10:35 AM EST Type 2 diabetes mellitus without complication, without long-term current use of insulin (HCC) COLOR FUNDUS PHOTOGRAPHY - OU - BOTH HHZCDmptaom39/04/2024 10:26 AM EST Type 2 diabetes mellitus without complication, without long-term current use of insulin (HCC) from Last 3 Months or Most Recently Relevant to Health Maintenance Results * POCT Glycated hemoglobin, total (02/12/2025 3:19 PM EDT)ComponentValueRef RangeTest MethodAnalysis TimePerformed AtPathologist SignatureHemoglobin A1C 7.0Specimen (Source)Anatomical Location / LateralityCollection Method / Volume Collection TimeReceived KykyDbfjw37/21/2025 3:19 PM EDT Narrative Authorizing ProviderResult TypeResult Faustino Carter MDPOINT OF CARE TEST ENTER/EDIT ORDERABLESFinal Result * (ABNORMAL) Microalbumin / creatinine urine ratio (07/19/2023 10:35 AM EST) ComponentValueRef RangeTest MethodAnalysis TimePerformed AtPathologist SignatureCREATININE, RANDOM KJIAE099(H)20 - 320 mg/dLQUESTComment: Verified by repeat analysis. [...] specimen obtained by clean catch procedure / Uqozlzj8207/19/2023 10:35 AM EST07/19/2023 3:59 PM EST Narrative Resulting Agency Comment Performing Organization Information ?Site ID: [id number] ?Name: [facility] ?Address: [address] [place] [id number] ?Director: Kuldip Hurst MD Authorizing ProviderResult TypeResult Faustino Carter MDDWIGHT D. EISENHOWER [facility] URINE ORDERABLESFinal ResultPerforming OrganizationAddressCity/State/ZIP CodePhone Number QUEST * [employer] - OU - Both Eyes (06/28/2023 10:26 AM EST)Anatomical RegionLateralityModalityHeadFundus Photography Narrative Authorizing ProviderResult TypeResult Faustino Carter MDOPHTH PHOTOGRAPHY Final Result from Last 3 Months or Most Recently Relevant to Health Maintenance Insurance Care Teams Team MemberRelationshipSpecialtyStart DateEnd Maya Carter MD [address] [place], [place] [phone] PCP - GeneralFamily Medicine11/28/22 Beryl Suarez NP [address] [place] [address] Nurse PractitionerFamily Medicine11/28/22
--- OUTSIDE RECORDS SUMMARY | 2025-04-29 09:50 | XMS_ITS | Clinical Summary ---
Author Organization [employer] tem Address [id number] [address] [place] [address] Care Team Providers Care Surgery Assistant Name Role Phone Maya Carter MD Primary Care Provider [phone] Allergies Active AllergyReactionsCriticalityNoted BvnrKasisdzyIbzeisblnif89/25/2023 Other Reaction(s): Unknown Amoxicillin-Pot ClavulanateOther (See Comments)10/27/2018 tore my liver up Other Reaction(s): Unknown HpxcvnjsmLwbinyoy77/01/2024 Medications MedicationSigDispense QuantityRefillsLast FilledStart DateEnd DateStatus apixaban [...] 2)06/10/2023hronic deep vein thrombosis (DVT) of lower utmjlquqy70/11/2023 Overview (10/03/2022): Left leg Essential (primary) syhgkaicghzq04nxiety Gastroesophageal reflux disease without aimayrodscf10 Obstructive sleep apnea pulgfkau75MI 50.0-59.9, adult Ventral wbefru27 Resolved Problems ProblemNoted DateDiagnosed DateResolved DateAcute coronary rljbmnme32/17/2023 03/28/2024CS (acute coronary syndrome)Unstable angina /09/2023 Encounters DateTypeDepartmentCare WzkpQazstxcphpt38/26/2025Telephone [facility] [address] [place] [phone] Carley Winston RN starting Exwcmbeg55/21/2025 10:30 AM EDTOffice Visit [facility] [address] [place] [address] Debra Kaur MD Essential (primary) hypertension (Primary Dx); ASCVD (arteriosclerotic cardiovascular disease)02/12/20259888Onlhti61/20/2025 Telephone [facility] [address] [place] [address] Lois Puentes CMA 02/04/2025 9:03 PM EDT - 02/05/2025 10:36 AM EDTHospital Encounter [facility] [address] [place] [phone] Meek Marquez MD Gill, MD Rand Najera [...] as a part of a household?No3Childcare AnswerDate UudykdqxMjfbxpzawLgsdzma41/12/2019EmploymentAnswerDate Recorded IwhubumyzpNkeizqe86/12/2019Hunger ScreeningAnswerDate RecordedWithin the past 12 months we worried whether our food would run out before we got money to buy more.Never True02/12/2025Within the past 12 months the food we bought just didn't last and we didn't have money to get more.Never True02/12/2025Purpose - LifeAnswerDate RecordedPurpose and direction in sxweMmlztep61/11/2021ex and Gender InformationValueDate RecordedSex Assigned at BirthNot on fileLegal Sex Male01/28/2015 11:26 AM EDTGender IdentityNot on fileSexual OrientationNot on file Last Filed Vital Signs Vital SignReadingTime TakenCommentsBlood Prmbdocq982/7402/12/2025 10:04 AM EDT Ccjfa314402/12/2025 10:04 AM RYKLtaddjjyuzj96.8 ??C (98.3 ??F)02/05/2025 7:34 AM EDTRespiratory Jtia099402/05/2025 7:34 AM EDTOxygen Vzdvdyzkho30%02/12/2025 10:04 AM EDTInhaled Oxygen Concentration--Nethro023.2 kg (362 lb)02/12/2025 10:04 AM OICUchbov866.3 cm (5' 11 )02/12/2025 10:04 AM EDTBody Mass Index50.49002/12/2025 10:04 AM EDT Plan of Treatment Health MaintenanceDue DateLast DoneCommentsDiabetic Ophthalmology Exam1967 Statin Use: Gjvmklgbbykfzy1967Statin Use: Wwzntwrs1967Depression Ocfqrweuo91/07/1979Adult BMI Follow Up Plan1985Diabetic Foot Exam 1985Zoster (Shingles) Vaccine (1 of 2)2017Influenza Vaccine 5007/04/2018, 04/18/2016, 05/09/2015, Additional history existsAdult BMI Vklorivno25Tobacco Qxgkzmbkb565DTaP,Tdap and Td Vaccines (8 - Td or Tdap), 05/15/2013, 05/15/2013, Additional history exists Goals GoalPatient Goal TypeAssociated ProblemsRecent ProgressPatient-Stated?Author home YasmaniWolfJUANI martins Note: Evaluation of progress towards goal: under assessment Medical Devices ImplantedTypeAreaManufacturerDevice IdentifierShelf Expiration DateModel / Serial / LotSystem Cor Stnt 3.5mm X 12mm 145cm Xience Skypoint Mtlnk Tom - [id number] Implanted:Qty: 1 on 06/11/2023 [facility]: ArterialABBOTT [id number] / / Procedures Procedure NamePriorityDate/TimeAssociated DiagnosisCommentsBASIC METABOLIC PANEL Wsxnjxv1602/12/2025 11:07 AM EDT ASCVD (arteriosclerotic cardiovascular disease) BEDSIDE ABXUHIMMfholqo75/14/2025 7:35 AM EDT ECG 12-MHSYMynqmkj46/14/2025 4:44 AM EDT EXTRA TUBES LAVENDER HJJHbqwolv54/14/2025 4:31 AM EDT EXTRA TUBES BLUE JYWTunygdu36/14/2025 4:31 AM EDT EXTRA CIQMFWbmojmx44/14/2025 4:31 AM EDT TROPONIN I, HIGH ZRJXWWGZEJXVMBN84/14/2025 4:31 AM EDT XR CHEST 1 HXJAPC8502/05/2025 1:05 AM EDT TROP I, HIGH SENSITIVITY 1 FRNPNPBH89/13/2025 10:21 PM EDT ECG 12-EWAPZNAI76/13/2025 9:15 PM EDTLIPID PROFILEAdd-On02/04/2025 9:14 PM EDT TROPONIN I, HIGH SENSITIVITY 0 WHIRUUHS57/13/2025 9:14 PM EDT TROPONIN I, HIGH SENSITIVITY 0 IHVYMPNN16/13/2025 9:14 PM EDT FCEFENSIVJHNV56/13/2025 9:14 PM EDT D-COMKMZRMP20/13/2025 9:14 PM EDT COMPREHENSIVE METABOLIC KDYEMBOHD42/13/2025 9:14 PM EDT B-TYPE NATRIURETIC OOTSOXBLRIZ29/13/2025 9:14 PM EDT QNEXSFRA64/13/2025 9:14 PM EDT PROTIME & IEXHQHH4602/04/2025 9:14 PM EDT CBC WITH AUTO QZMLCPNEUNHYPMEZ52/13/2025 9:14 PM EDT from Last 3 Months Results * (ABNORMAL) Basic Metabolic Panel (02/12/2025 11:07 AM EDT)ComponentValueRef RangeTest MethodAnalysis TimePerformed AtPathologist ZnbxrjsvlJMVIVW734566 - 146 mmol/L02/12/2025 1:55 PM [facility] LABORATORYPOTASSIUM 4.63.5 - 5.0 mmol/L02/12/2025 1:55 PM [facility] HLKJBPED49212 - 109 mmol/L02/12/2025 1:55 PM [facility] LABORATORYCARBON MNNFIGY5014 - 32 mmol/L02/12/2025 1:55 PM [facility] LABORATORYANION GAP65 - 15 mmol/L02/12/2025 1:55 PM [facility] LABORATORYBLOOD UREA GDDHIFWS091 - 23 mg/dL02/12/2025 1:55 PM [facility] LABORATORYCREATININE1.070.60 - 1.30 mg/dL 02/12/2025 1:55 PM [facility] LABORATORYComment:METHOD TRACEABLE TO IDMS ILPTUMWPOYYBWEJ446(H)65 - 99 mg/dL02/12/2025 1:55 PM EDT [facility] LABORATORYCALCIUM9.38.5 - 10.5 mg/dL02/12/2025 1:55 PM [facility]ORATORYEGFR Non-Race Huusmcfxn53>=60 ml/min/1.73sq.m002/12/2025 1:55 PM [facility] Comment: Reported eGFR is based on the CKD-EPI 2020 equation that does not use a race coefficient. EGFR not calculated due to patient's gender not being defined. Specimen (Source)Anatomical Location / LateralityCollection Method / Volume Collection TimeReceived TimeBloodVenous blood / UnknownVenipuncture / Unknown 02/12/2025 11:07 AM EDT02/12/2025 11:07 AM EDT Narrative Authorizing ProviderResult TypeResult StatusJopranav Wiseman OPERATIONS LEADER-CNPLAB BLOOD ORDERABLESFinal ResultPerforming OrganizationAddressCity/State/ZIP CodePhone Number [facility] [address] [place] [address], * (ABNORMAL) Bedside Glucose *Place/Obtain serum glucose if >500 per glucometer. (02/05/2025 7:35 AM EDT)ComponentValueRef RangeTest MethodAnalysis Time Performed AtPathologist SignatureBedside Glucose (POC)130(H)65 - 99 mg/dL 02/05/2025 7:38 AM EDTPSELECT MEDICAL SPECIAL[facility] - TRUMBULLpecimen (Source) Anatomical Location / LateralityCollection Method / VolumeCollection Time Received Timearterial//14/2025 7:35 AM EDT02/05/2025 7:38 AM EDT Narrative Authorizing ProviderResult TypeResult StatusKaleem U Duek MDPOINT OF CARE TEST ORDERABLESFinal ResultPerforming OrganizationAddressCity/State/ZIP CodePhone Number [place] [phone] [place] [address], [place] * ECG 12 lead (02/05/2025 4:44 [...] AtPathologist SignatureExtra TubeAuto Resulted 02/05/2025 6:03 AM EDTPSELECT MEDICAL SPECIALTY [facility]OSPITAL - TRUMBULLpecimen (Source) Anatomical Location / LateralityCollection Method / VolumeCollection Time Received TimeBloodVenous blood / Nnyezlq0802/05/2025 4:31 AM EDT02/05/2025 4:34 AM EDT Narrative Authorizing ProviderResult TypeResult StatusMeek HENDERSON BLOOD ORDERABLES Final ResultPerforming OrganizationAddressCity/State/ZIP CodePhone Number [address] [place] [address], [place] * Light Blue Top (02/05/2025 4:31 AM EDT)ComponentValueRef RangeTest Method Analysis TimePerformed AtPathologist SignatureExtra TubeAuto Resulted 02/05/2025 6:03 AM EDTPGreene Memorial Hospitalimen (Source) Anatomical Location / LateralityCollection Method / VolumeCollection Time Received TimeBloodVenous blood / Oowihxj8702/05/2025 4:31 AM EDT02/05/2025 4:34 AM EDT Narrative Authorizing ProviderResult TypeResult StatusMeek Marquez MDLAB BLOOD ORDERABLES Final ResultPerforming OrganizationAddressCity/State/ZIP CodePhone Number [address] [place] [address], [place] * Troponin I, High Sensitivity (02/05/2025 4:31 AM EDT)ComponentValueRef Range Test MethodAnalysis TimePerformed AtPathologist SignatureTROPONIN I, HIGH WTVJIBECXVW28<21 ng/L02/05/2025 6:19 AM EDTPROM[facility] Specimen (Source)Anatomical Location / LateralityCollection Method / Volume Collection TimeReceived TimeBlood (Other)Venipuncture / Bimqqeu0602/05/2025 4:31 AM EDT02/05/2025 4:33 AM EDT Narrative Authorizing ProviderResult TypeResult StatusHanvalente Valdez OPERATIONS LEADER-CNPLAB BLOOD ORDERABLESFinal ResultPerforming OrganizationAddressCity/State/ZIP CodePhone Number [facility] [address] [place] [address], [place] * X-ray chest 1 view (02/05/2025 [...] 1:43 AM Authorizing ProviderResult TypeResult Analia Cassidy [facility] DIAGNOSTIC IMAGING ORDERABLESFinal Result * Troponin I, High Sensitivity 1 Hour (02/04/2025 10:21 PM EDT)ComponentValueRef RangeTest MethodAnalysis TimePerformed AtPathologist SignatureTROPONIN I, HIGH ZARJOECWZKT21<21 ng/L02/04/2025 11:[facility] PM [facility] (Source)Anatomical Location / LateralityCollection Method / VolumeCollection TimeReceived TimeBloodVenous blood / UnknownVenipuncture / Krokqzu0802/04/2025 10:21 PM EDT02/04/2025 10:23 PM EDT Narrative Authorizing ProviderResult TypeResult StatusMeek HENDERSON BLOOD ORDERABLES Final ResultPerforming OrganizationAddressCity/State/ZIP CodePhone Number [address] [place] [address], * Troponin I, High Sensitivity 0 Hour (02/04/2025 9:14 PM EDT)ComponentValueRef RangeTest MethodAnalysis TimePerformed AtPathologist SignatureTROPONIN I, HIGH OSFJYZYWRCC96<21 ng/L02/04/2025 10:02 PM ED[facility] (Source)Anatomical Location / LateralityCollection Method / VolumeCollection TimeReceived TimeBloodVenous blood / UnknownVenipuncture / Rpisslf5302/04/2025 9:14 PM EDT02/04/2025 9:24 PM EDT Narrative Authorizing ProviderResult TypeResult StatusMeek Marquez MDLAB BLOOD ORDERABLES Final ResultPerforming OrganizationAddressCity/State/ZIP CodePhone Number [address] [place] [address], * CBC auto differential (02/04/2025 9:14 PM EDT)ComponentValueRef RangeTest MethodAnalysis TimePerformed AtPathologist SignatureWBC8.94 - 11 x10E9/L 02/04/2025 9:32 PM EDTPPROMEDICA TOLEDO HOSPITALRBC Count4.874.1 - 5.7 X10E12/L02/04/2025 9:32 PM EDTPPROM[facility] Hucmigjgyn88.413 - 17 g/dL02/04/2025 9:32 PM EDTPPROMEDICA TOLEDO HOSPITALHematocrit42.439 - 50 %02/04/2025 9:32 PM EDTPPROMEDICA TOLEDO HOSPITALMCV8780 - 100 fL02/04/2025 9:32 PM EDTPPROMEDICA TOLEDO HOSPITALMCH29.527 - 34 pg02/04/2025 9:32 PM EDTPPROMEDICA TOLEDO HOSPITALMCHC34.032 - 36 g/dL02/04/2025 9:32 PM EDTPPROMEDICA TOLEDO HOSPITALRDW13.911.5 - 15 %02/04/2025 9:32 PM EDK[facility]IN [facility] CENTERPlatelet Jielg747563 - 450 X10E9/L02/04/2025 9:32 PM EDT [facility]MPV7.17 - 12 fL02/04/2025 9:32 PM EDT [facility]ITALNeutrophils %66.4%02/04/2025 9:32 PM EDT [facility]ITALLymphocytes %22.7%02/04/2025 9:32 PM EDT [facility]ITALMonocytes %8.1%02/04/2025 9:32 PM EDT [facility]ITALEosinophils %2.3%02/04/2025 9:32 PM EDT [facility]ITALBasophils %0.5%02/04/2025 9:32 PM EDT [facility]ITALNeutrophils Absolute (A)5.91.5 - 6.6 10*3/uL02/04/2025 9:32 PM EDKET[facility] SOIN MEDICAL CENTERLymphocytes Absolute2.01.0 - 3.5 10*3/02/04/2025 9:32 PM EDTPPROMEDICA TOLEDO HOSPITALMonocytes Absolute0.70.0 - 0.9 10*3/02/04/2025 9:32 PM EDKET[facility]ICAL CENTEREosinophils Absolute0.20.0 - 0.4 10*3/02/04/2025 9:32 PM EDKET[facility] CENTERBasophils Absolute0.00.0 - 0.2 10*3/02/04/2025 9:32 PM EDKETTERING [facility]ALTH [facility] SOIN MEDICAL CENTERDifferential TypeAUTOMATED VCQFJUMZPBBW12/13/2025 9:32 PM [facility] (Source)Anatomical Location / LateralityCollection Method / VolumeCollection TimeReceived TimeBloodVenous blood / UnknownVenipuncture / Bmtcspz6802/04/2025 9:14 PM EDT02/04/2025 9:24 PM EDT Narrative Authorizing ProviderResult TypeResult StatusMeek HENDERSON BLOOD ORDERABLES Final ResultPerforming OrganizationAddressCity/State/ZIP CodePhone Number [address] [place] [address], * APTT (02/04/2025 9:14 PM EDT)ComponentValueRef RangeTest MethodAnalysis Time Performed AtPathologist TnpxegxvtIQDT1303 - 37 sec02/04/2025 9:47 PM EDT [facility] (Source)Anatomical Location / LateralityCollection Method / VolumeCollection TimeReceived TimeBloodVenous blood / UnknownVenipuncture / Dhuckjs3502/04/2025 9:14 PM EDT02/04/2025 9:24 PM EDT Narrative Authorizing ProviderResult TypeResult StatusMeek HENDERSON BLOOD ORDERABLES Final ResultPerforming OrganizationAddressCity/State/ZIP CodePhone Number [address] [place] [address], [place] * Protime & INR (02/04/2025 9:14 PM EDT)ComponentValueRef RangeTest Method Analysis TimePerformed AtPathologist QpmspqssvMIQCSTT88.19.8 - 13.2 sec 02/04/2025 9:47 PM [facility]INR1.20.9 - 1.2 02/04/2025 9:47 PM [facility] ([facility]) Anatomical Location / LateralityCollection Method / VolumeCollection Time Received TimeBloodVenous blood / UnknownVenipuncture / Ycjztjo5302/04/2025 9:14 PM EDT02/04/2025 9:24 PM EDT Narrative Authorizing ProviderResult TypeResult StatusMeek HENDERSON BLOOD ORDERABLES Final ResultPerforming OrganizationAddressty/[facility]/ZIP CodePhone Number [address] [place] [address], [place] * D-Dimer (02/04/2025 9:14 PM EDT)ComponentValueRef RangeTest MethodAnalysis TimePerformed AtPathologist SignatureD DIMER<1501 - 255 ug/mL02/04/2025 9:47 PM [facility]ITALComment:Results <255 ng/mL DDU: The presensence of a VTE can safely be excluded with a negative D-Dimer result and Wells score. A negative result doesn't exclude the possibility of DIC. The test should berepeated along with other diagnostic tests if the patient's symptoms persist or worsen.Specimen (Source)Anatomical Location / Laterality Collection Method / VolumeCollection TimeReceived TimeBloodVenous blood / UnknownVenipuncture / Clnerjq3702/04/2025 9:14 PM EDT02/04/2025 9:24 PM EDT Narrative Authorizing ProviderResult TypeResult StatusMeek HENDERSON BLOOD ORDERABLES Final ResultPerforming OrganizationAddressty/State/ZIP CodePhone Number [address] [place] [address], [place] * B-type natriuretic peptide (02/04/2025 9:14 PM EDT)ComponentValueRef RangeTest MethodAnalysis TimePerformed AtPathologist PetgksrkuOTT68<=100 pg/mL02/04/2025 11:02 PM ED[facility] (Source)Anatomical Location / LateralityCollection Method / VolumeCollection TimeReceived Time BloodVenous blood / UnknownVenipuncture / Uwufihl0302/04/2025 9:14 PM EDT 02/04/2025 9:24 PM EDT Narrative Authorizing ProviderResult TypeResult Shanna Marquez MDLAB BLOOD ORDERABLES Final ResultPerforming OrganizationAddressty/State/ZIP CodePhone Number [address] [place] [address], [place] * Magnesium (02/04/2025 9:14 PM EDT)ComponentValueRef RangeTest MethodAnalysis TimePerformed AtPathologist SignatureMAGNESIUM2.11.8 - 2.6 mg/dL02/04/2025 9:55 PM EDWhite [facility] (Source)Anatomical Location / LateralityCollection Method / VolumeCollection TimeReceived Time BloodVenous blood / UnknownVenipuncture / Dkfczxx1202/04/2025 9:14 PM EDT 02/04/2025 9:24 PM EDT Narrative Authorizing ProviderResult TypeResult StatusMeek HENDERSON BLOOD ORDERABLES Final ResultPerforming OrganizationAddressty/State/ZIP CodePhone Number [address] [place] [address], [place] * (ABNORMAL) Lipid profile (02/04/2025 9:14 PM EDT)ComponentValueRef RangeTest MethodAnalysis TimePerformed AtPathologist AwdenjyoeNOSCIHJKQLC615(L)150 - 200 mg/dL02/05/2025 10:11 AM [facility] PTPVBLFGDFLAWTCORPXFXZ256 27 - 150 mg/dL02/05/2025 10:11 AM [facility] LABORATORYHDL AXKXFLLWFNY74(L)>39 mg/dL02/05/2025 10:11 AM [facility] LABORATORYComment: HDL <40 mg/dL - High Risk HDL > or = 40mg/dL- Desirable HDL >60 mg/dL - Negative Risk LDL (CALC)76<130 mg/dL08/ 10:11 AM [facility] Comment: LDL <100 mg/dL - Desirable LDL >160 mg/dL - High Risk CHOLESTEROL:HDL3.61.0 - 5.008 10:11 AM [facility] LABORATORYVERY LOW MXUMIRBHKQE564 - 30 mg/dL02/05/2025 10:11 AM [facility] LABORATORYSpecimen (Source)Anatomical Location / Laterality Collection Method / VolumeCollection TimeReceived TimeBloodVenous blood / UnknownVenipuncture / Bcyezig7402/04/2025 9:14 PM EDT02/04/2025 9:24 PM EDT Narrative Authorizing ProviderResult TypeResult StatusHanvalente Valdez OPERATIONS LEADER-CNPLAB BLOOD ORDERABLESFinal ResultPerforming OrganizationAddressCity/State/ZIP CodePhone Number [facility] [address] [place] [address], * (ABNORMAL) Comprehensive metabolic panel (02/04/2025 9:14 PM EDT)Component ValueRef RangeTest MethodAnalysis TimePerformed AtPathologist SignatureSODIUM 146875 - 146 mmol/L02/04/2025 9:55 PM [facility] POTASSIUM4.23.5 - 5.0 mmol/L02/04/2025 9:55 PM [facility]ITALCHLORIDE10098 - 109 mmol/L02/04/2025 9:55 PM [facility]ITALCARBON EDWZPFD6332 - 32 mmol/L02/04/2025 9:55 PM EDKET[facility] SOIN [facility] CENTERANION MMC168 - 15 mmol/L02/04/2025 9:55 PM EDT [facility]ENTERBLOOD UREA JRKBYONW871 - 23 mg/dL02/04/2025 9:55 PM EDKETTERING [facility]ALTH – SOIN MEDICAL CENTERCREATININE1.020.70 - 1.20 mg/dL 02/04/2025 9:55 PM [facility]ITALComment:METHOD TRACEABLE TO IDMS IFVQBFZOAYOPYWL415(H)65 - 99 mg/dL02/04/2025 9:55 PM EDT [facility]ITALCALCIUM9.58.5 - 10.5 mg/dL02/04/2025 9:55 PM [facility]ITALTOTAL PROTEIN7.76.0 - 8.0 g/dL 02/04/2025 9:55 PM [facility]ITALALBUMIN4.03.2 - 5.3 g/dL02/04/2025 9:55 PM [facility]ITALALKALINE ZLZBCHTKUGI9692 - 130 U/L02/04/2025 9:55 PM [facility]ITALAST27<=41 U/L02/04/2025 9:55 PM [facility] ALT32<=40 U/L02/04/2025 9:55 PM [facility] BILIRUBIN,TOTAL0.50.3 - 1.2 mg/dL02/04/2025 9:55 PM [facility]OS[facility]ITALEGFR Non-Race Lfprzosrk25>=60 ml/min/1.73sq.m002/04/2025 9:55 PM [facility]ITALComment: eGFR not reported due to non-numeric value for Creatinine. Reported eGFR is based on the CKD-EPI 2020 equation that does not use a race coefficient. Specimen (Source)Anatomical Location / LateralityCollection Method / Volume Collection TimeReceived TimeBloodVenous blood / UnknownVenipuncture / Unknown 02/04/2025 9:14 PM EDT02/04/2025 9:24 PM EDT Narrative Authorizing ProviderResult TypeResult StatusMeek Marqeuz MDLAB BLOOD ORDERABLES Final ResultPerforming OrganizationAddressCity/State/ZIP CodePhone Number [facility] [address] [place] [address], from Last 3 Months Insurance * Guarantor: Dirk FrankAccoelayne TypeRelation to PatientDate of BirthPhone Billing AblynunVcklylInzz1965 [address] [place] [phone] Advance Directives * Full Code (Latest Code Status on File) Date ActivatedDate InactivatedComments02/05/2025 12:21 AM02/05/2025 12:46 PM * Full Code Date ActivatedDate CslqbkuurppWmeyiilb40/17/2023 7:04 AM06/12/2023 7:16 PM Care Teams Team MemberRelationshipSpecialtyStart DateEnd Date Maya Carter MD [address] [place] [address] PCP - GeneralFamily Medicine08/15/17
--- NOTE | 2025-04-29 09:53 | CT_ITS ---
The [address] [address] Patient Name: DAMIEN LOAIZA MRN: [id number] date: 1965 Sex: M Assigned Patient Location: CT Current Patient Location: CT Accession/Order Number: [id number] Exam Date: 04/29/2025 09:58 Report Date: 04/29/2025 10:27 At the request of: JOSE G NEIL MD Procedure: CT lumbar spine wo con CT LUMBAR SPINE WITHOUT CONTRAST WITH 3-D RECONSTRUCTIONS CLINICAL DATA: Chronic low back pain with numbness and tingling down the legs. COMPARISON: None Spiral axial unenhanced images were obtained through the lumbar spine. Sagittal, coronal and 3-D volume rendered reconstructions were reviewed. This CT exam was performed using one or more following dose reduction techniques: Automated exposure control, adjustment of the mA and/or kV according to patient size, or use of iterative reconstruction technique. There is subtle wedge deformity at T11 which is probably physiologic. No acute lumbar compression fractures are identified. No significant displacement is seen. There is slight disc space narrowing at L2-L3 and L3-4. Mild endplate spurring is seen throughout. There is facet hypertrophy, greatest distally. The SI joints are intact and there is mild spurring. No paraspinal soft tissue abnormalities are seen. Minor atherosclerotic disease is noted. There are no acute intraperitoneal findings in the field of view. At T12-L1 and L1-2, there is minor annular disc bulging which is greater extending laterally. There is no significant thecal sac effacement. There is minimal inferior foraminal encroachment at T12-L1 and mild at L1-2. At L2-3, there is mild annular disc bulging slightly asymmetric through the left neural foramen and extending laterally. There is minor facet and ligamentous hypertrophy with slight thecal sac effacement. There is mild inferior foraminal encroachment. At L3-4, there is mild annular disc bulging. There is moderate facet and mild ligamentous hypertrophy. There is moderate to severe central stenosis. There is mild to moderate bilateral foraminal encroachment. At L4-5, there is annular disc bulging as well as a broad-based left parasagittal protrusions with extends through the neural foramen. There is ligamentous hypertrophy and addition to facet disease. There is at least moderate to potentially severe thecal sac effacement. There is moderate to severe bilateral foraminal impingement. At the lumbosacral junction, there is minor annular disc bulging. There is prominent facet disease, right side slightly worse than left. There is no significant thecal sac effacement. There is moderate to severe bony foraminal encroachment on the right and mild on the left. CT/CT lumbar spine wo con IMPRESSION: DISCOVERTEBRAL DEGENERATIVE CHANGES WITH ASSOCIATED STENOSIS, GREATEST AT L3-4 AND L4-5 OUTLINED ABOVE. Impression dictated by: Brigida Marte M.D. 04/29/2025 10:27 AM Dictation Location: [place] [address] Electronically authenticated by: [id number] Y Date: 04/29/2025 10:27
== END 2025-04-29 09:47 | disposition home or self-care (01) ==
LOC: CT 09:46
PROVIDERS: PCP Family Medicine; Visit Provider Anesthesiology
DX: M48.062 Spinal stenosis, lumbar region with neurogenic claudication (principal); M51.369 Other intervertebral disc degeneration, lumbar region without mention of lumbar back pain or lower extremity pain
CPT/HCPCS: 72131; 76376

== ENCOUNTER 2025-05-07 08:32 | Outpatient (OUT) | payer MEDICARE, SELFPAY ==
--- OUTSIDE RECORDS SUMMARY | 2025-05-07 08:36 | XMS_ITS | Clinical Summary ---
Author Organization [facility] Address [address] [place] [address] Care Team Providers Care Shoe Associate Name Role Phone Maya Mattson MD Primary Care Provider Beryl Suarez MEDICAL AUDITOR Unavailable [phone] Allergies Active AllergyReactionsCriticalityNoted CevoZoxwxfbzGyezicjxujd63/25/2023 Other Reaction(s): Unknown Amoxicillin-Pot Gjjwcvhpxne97/25/2023 Other Reaction(s): Unknown Clavulanic AcidGI zvusjacamigHbo54/05/4117IsfeynidkVxcdouhh71/01/2024 Medications MedicationSigDispense QuantityRefillsLast FilledStart DateEnd DateStatus Multiple Vitamin (Multivitamin Adult) tablet Take 1 tablet by mouth in the morning.Active nitroglycerin (Nitrostat) 0.[address] 0.3 mg under the tongue Daily as needed for chest pain06/12/2023ctive [employer] Blood Glucose Test test strip Use strip as directed by vjkwsuyjfy01/19/2023ctive Drug [place] Unilet Lancets 30G misc USE DIRECTED to [...] TAKE 1 TABLET BY MOUTH PRIOR TO AACNLAAFW51/17/2024ctive tiZANidine (Zanaflex) 4 MG tablet Take 4 [...] ASCVD (arteriosclerotic cardiovascular disease)03/28/2024Mixed hyperlipidemia 03/28/2024cute coronary hoasjdoj32/16/2023 Assessment & Plan (06/15/2023 12:33 PM EST): Had stenet placed last week. Unstable eujenf5906/09/2023Type 2 diabetes mellitus without complication, without long-term current use of gttsncq5606/05/2023 Assessment & Plan (02/12/2025 3:43 PM EDT): [...] different issues. Unilateral primary osteoarthritis, left knee11/28/2022bnormal nznwzsq2811/16/2022 Jwskjjk9611/16/2022enign essential ctstlpphxmnu68/25/2023 Assessment & Plan (07/19/2023 7:45 PM EST): Continue coreg. Well controlled. Assessment & Plan (06/15/2023 12:34 PM EST): Now controlled on coreg and lisinopril. Assessment & Plan (06/05/2023 11:05 PM EST): Add in lisinopril at 10 mg. Abbie djust medications to ge tthe BP under control. Assessment & Plan (12/28/2022 1:35 PM EDT): Stable on metoprolol. Acute left-sided low back pain with left-sided qmbofzsz27/25/2023Obstructive sleep apnea ygsbpdgh25/25/2023 Assessment & Plan (07/19/2023 7:44 PM EST): Continue CPAP. Assessment & Plan (12/28/2022 1:35 PM EDT): Has not been wearing his CPAP as he can't get comfortable at night. Promises to try again 01/14. Primary sptmmiwaohpitm19/25/2023Recurrent ventral ruiybz1411/16/2022Umbilical hernia without obstruction and without fijouwbl61/25/2023Lumbar paraspinal muscle spasm11/13/2022Lumbar ktqxsfprwfysz28/22/2023 Assessment & Plan (01/24/2024 7:29 PM EDT): Still following with pain mgmt. Sqoktoef44/22/2023hronic deep vein thrombosis (DVT) of lower extremity 10/03/2022 Overview (11/28/2022): Left leg Assessment & Plan (07/19/2023 7:45 PM EST): Maintained on eliquis. Assessment & Plan (06/05/2023 11:05 PM EST): He is on termite control representative eliquis. History of psychiatric vhbqivlc48/08/2021Internal derangement of left knee 04/01/2021Gastroesophageal reflux disease without rlnsakecnkh09/19/2016Hepatic /19/2016Essential (primary) gygbizqwdzvd92/19/2016Morbid obesity 06/06/2015 Assessment & Plan (07/19/2023 7:51 [...] or do much activity at all. Umbilical yorrzx6706/06/2015Ventral lgxxlh2006/06/2015BMI 45.0-49.9, adult06/06/2015 Ptvjuggcxt65/17/2014 Encounters DateTypeDepartmentCare HtohHmwrbryrmgo04/05/2025Clinisync Result Encounter [facility] External Department Unsolicited Provider, Generic External Data 04/14/2025Orders Only [place] [address] [place] [phone] Maya Mattson MD Type 2 diabetes mellitus without complication, without long-term current use of insulin (HCC) (Primary Dx)04/14/2025Telephone [place] [address] [place] [address] Maya Mattson MD 03/11/2025Orders Only [place] [address] [place] [phone] Maya Mattson MD Type 2 diabetes mellitus without complication, without long-term current use of insulin (HCC) (Primary Dx)03/11/2025Refill [place] [address] [place] [address] Maya Mattson MD Type 2 diabetes mellitus without complication, without long-term current use of insulin (HCC); BLAIR (obstructive sleep apnea)03/09/2025Refill [place] [address] [place] [address] Nicole Mitchell NP Acute coronary syndrome (HCC)02/13/2025Telephone [place] [address] [facility] [place] [address] Maya Mattson MD 02/12/2025 2:40 PM EDTFollow-Up [place] [address] [facility] [place] [phone] Maya Mattson MD Type 2 diabetes mellitus without complication, without long-term current use of insulin (HCC) (Primary Dx); Other chest pain; Primary hypertension ; BLAIR (obstructive sleep apnea)02/12/2025Telephone [facility] [address] [place] [address] Stephanie Pelaez MA 02/12/20258944Fsfkhi11/15/2025Patient Outreach [facility] [address] [place] [address] Lina Rosa LPN from Last 3 Months Immunizations ImmunizationAdministration DatesNext DueInfluenza, injectable, quadrivalent, preservative free04/18/2016,05/09/2015,07/04/2014Influenza, seasonal, injectable, preservative free03/25/2013Influenza, seasonal, intradermal, preservative free07/04/2018,04/14/2013Td (adult), 5 Lf tetanus toxoid, preservative free, kbsibmrw30/21/2013,03/25/2013Tdap1,05/15/2013, 03/28/2013,03/25/2013,04/14/2012 Family History Medical HistoryRelationNameCommentsProstate cancerFatheropen heart surgeryMother RelationNameStatusCommentsFatherDeceasedMotherAlive Social History Tobacco UseTypesPacks/DayYears UsedDateSmoking Tobacco: NeverSmokeless Tobacco: NeverAlcohol UseStandard Drinks/WeekCommentsYes3 (1 standard drink = 0.6 oz pure alcohol)PHQ-2AnswerDate RecordedPatient Health Questionnaire-2 Bhfra478 Sex and Gender InformationValueDate RecordedSex Assigned at BirthNot on file Legal UxeIjcs9809/06/2022 6:35 PM EDTGender IdentityNot on fileSexual Orientation Not on file Last Filed Vital Signs Vital SignReadingTime TakenCommentsBlood Uxsvvhnp404/7402/12/2025 2:46 PM EDT Njucv611002/12/2025 2:46 PM EHIOcidvorkeyx08.2 ??C (97.1 ??F)06/22/2023 1:03 PM ESTRespiratory Rate--Oxygen Tvvfbphldv09%02/12/2025 2:46 PM EDTInhaled Oxygen Concentration--Yhguyh365 kg (362 lb)02/12/2025 2:46 PM HUWTrrkji707.3 cm (5' 11 )02/12/2025 2:46 PM EDTBody Mass Index50.49002/12/2025 2:46 PM EDT Plan of Treatment Health MaintenanceDue DateLast DoneCommentsCT Jsbhfgxoisdq1967Colonoscopy 1967Colorectal Cancer Vfoxdbxqg1967FIT-DNA1967FIT1967 FOBT1967Medicare Annual Wellness (AWV)1965 3978Ftenrbeczxfnx1967 Pneumococcal Vaccine: Pediatrics (0 to 5 Years) and At-Risk Patients (6 to 64 Years) (1 of 2 - PCV)1986Diabetes: Urine Protein Exdpqtqdh91/25/2025 07/19/2023OVID-19 Vaccine ( season)2025Influenza Vaccine (#1) /03/2019, 04/18/2016, 05/09/2015, Additional history existsDiabetes: Hemoglobin A1C/, 09/18/2024, 01/24/2024, Additional history existsDiabetes: Retinopathy Tzbrmzxnz88/04/54821306/28/2023 Procedures Procedure NamePriorityDate/TimeAssociated DiagnosisCommentsCT LUMBAR SPINE WO IV MYWKESJJ19/05/2025 10:27 AM EST POCT GLYCATED HEMOGLOBIN, PRJASWxipzsb74/21/2025 3:19 PM EDT Type 2 diabetes mellitus without complication, without long-term current use of insulin (HCC) MICROALBUMIN / CREATININE URINE EVTLPWucqzia10/25/2024 10:35 AM EST Type 2 diabetes mellitus without complication, without long-term current use of insulin (HCC) COLOR FUNDUS PHOTOGRAPHY - OU - BOTH ARBHNvajyzv31/04/2024 10:26 AM EST Type 2 diabetes mellitus without complication, without long-term current use of insulin (HCC) from Last 3 Months or Most Recently Relevant to Health Maintenance Results * CT lumbar spine wo IV contrast (04/29/2025 10:27 AM EST)Anatomical Region LateralityModalitySpine, L-spineComputed TomographySpecimen (Source)Anatomical Location / LateralityCollection Method / VolumeCollection TimeReceived Time 04/29/2025 10:27 AM EST Narrative 04/29/2025 10:30 AM EST [facility] ?[address] ? [place] [address] ? CT Scan Report ? Signed ? Patient: ZACDAMIEN ? MR#: [id number] ?? : 1965 ?Acct:[id number] ?? Age/Sex: 59 / M ?ADM Date: 04/29/25 ?? Loc: CT ? Attending Dr: Elayne Neil M.D. ? Ordering Physician: Elayne Neil M.D. ?? Date of Service: 04/29/25 ?? Procedure(s): CT lumbar spine wo con ?? Accession Number(s): [id number] ? cc: MAYA MATTSON ? [facility] ? [address] ? [place] [address] ? Patient Name: ?? DAMIEN ??BLACK ? MRN: [facility]:[id number] ? date: 1965 ?Sex: M ?? Assigned Patient Location: CT ?? Current Patient Location: CT ?? Accession/Order Number: [id number] ?? Exam Date: 04/29/2025 ??09:58 ?Report Date: 04/29/2025 ??10:27 ? At the request of: ?? ELAYNE ??JOLYNN ? Procedure: ??CT lumbar spine wo con ? CT LUMBAR SPINE WITHOUT CONTRAST WITH 3-D RECONSTRUCTIONS ? CLINICAL DATA: Chronic low back pain with numbness and tingling down the legs. ? COMPARISON: None ? Spiral axial unenhanced images were obtained through the lumbar spine. ? Sagittal, coronal and 3-D volume rendered reconstructions were reviewed. This ?? CT exam was performed using one or more following dose reduction techniques: ?? Automated exposure control, adjustment of the mA and/or kV according to ?? patient size, or use of iterative reconstruction technique. ? There is subtle wedge deformity at T11 which is probably physiologic. ??No ?? acute lumbar compression fractures are identified. ??No significant ?? displacement is seen. ??There is slight disc space narrowing at L2-L3 and L3-4. ?? Mild endplate spurring is seen throughout. ??There is facet hypertrophy, ?? greatest distally. ??The SI joints are intact and there is mild spurring. ??No ?? paraspinal soft tissue abnormalities are seen. ??Minor atherosclerotic disease ?? is noted. ??There are no acute intraperitoneal findings in the field of view. ? At T12-L1 and L1-2, there is minor annular disc bulging which is greater ?? extending laterally. ??There is no significant thecal sac effacement. ??There is ?? minimal inferior foraminal encroachment at T12-L1 and mild at L1-2. ? At L2-3, there is mild annular disc bulging slightly asymmetric through the ?? left neural foramen and extending laterally. ??There is minor facet and ?? ligamentous hypertrophy with slight thecal sac effacement. ??There is mild ?? inferior foraminal encroachment. ? At L3-4, there is mild annular disc bulging. ??There is moderate facet and mild ?? ligamentous hypertrophy. ??There is moderate to severe central stenosis. ??There ?? is mild to moderate bilateral foraminal encroachment. ? At L4-5, there is annular disc bulging as well as a broad-based left ?? parasagittal protrusions with extends through the neural foramen. ??There is ?? ligamentous hypertrophy and addition to facet disease. ??There is at least ?? moderate to potentially severe thecal sac effacement. ??There is moderate to ?? severe bilateral foraminal impingement. ? At the lumbosacral junction, there is minor annular disc bulging. ??There is ?? prominent facet disease, right side slightly worse than left. ??There is no ?? significant thecal sac effacement. ??There is moderate to severe bony foraminal ?? encroachment on the right and mild on the left. ? CT/CT lumbar spine wo con ?? IMPRESSION: ? DISCOVERTEBRAL DEGENERATIVE CHANGES WITH ASSOCIATED STENOSIS, GREATEST AT L3-4 ?? AND L4-5 OUTLINED ABOVE. ? Impression dictated by: Brigida Marte M.D. ??04/29/2025 10:27 AM ? Dictation Location: [place] [address] ? Electronically authenticated by: [id number] ??Y ?? Date: 04/29/2025 ??10:27 ? Dictated By: ?Brigida Marte M.D. ? Signed By: ?04/29/25 1030 ? DD/ 1027 ? TD/TT: ? Electrical Cad Designer: Procedure Note Radiology, Radiologist, MD - 04/29/2025 [place] [address] CT Scan Report Signed Patient: RIZWANA LOAIZA#: [id number] : 1965Acct:[id number] Age/Sex: 59 / MADM Date: 04/29/25 Loc: CT Attending Dr: Elayne Neil M.D. Ordering Physician: Elayne Neil M.D. Date of Service: 04/29/25 Procedure(s): CT lumbar spine wo con Accession Number(s): [id number] cc: MAYA MATTSON The [place] [id number] Patient Name: DAMIEN LOAIZA MRN: [id number]:[id number] date: 1965 Sex: M Assigned Patient Location: CT Current Patient Location: CT Accession/Order Number: [id number] Exam Date: 04/29/2025 09:58 Report Date: 04/29/2025 10:27 At the request of: ELAYNE NEIL MD Procedure: CT lumbar spine wo con CT LUMBAR SPINE WITHOUT CONTRAST WITH 3-D RECONSTRUCTIONS CLINICAL DATA: Chronic low back pain with numbness and tingling down thelegs. COMPARISON: None Spiral axial unenhanced images were obtained through the lumbar spine. Sagittal, coronal and 3-D volume rendered reconstructions were reviewed.This CT exam was performed using one or more following dose reductiontechniques: Automated exposure control, adjustment of the mA and/or kV according to patient size, or use of iterative reconstruction technique. There is subtle wedge deformity at T11 which is probably physiologic. No acute lumbar compression fractures are identified. No significant displacement is seen. There is slight disc space narrowing at L2-L3 andL3-4. Mild endplate spurring is seen throughout. There is facet hypertrophy, greatest distally. The SI joints are intact and there is mild spurring.No paraspinal soft tissue abnormalities are seen. Minor atheroscleroticdisease is noted. There are no acute intraperitoneal findings in the field ofview. At T12-L1 and L1-2, there is minor annular disc bulging which is greater extending laterally. There is no significant thecal sac effacement.There is minimal inferior foraminal encroachment at T12-L1 and mild at L1-2. At L2-3, there is mild annular disc bulging slightly asymmetric throughthe left neural foramen and extending laterally. There is minor facet and ligamentous hypertrophy with slight thecal sac effacement. There is mild inferior foraminal encroachment. At L3-4, there is mild annular disc bulging. There is moderate facet andmild ligamentous hypertrophy. There is moderate to severe central stenosis.There is mild to moderate bilateral foraminal encroachment. At L4-5, there is annular disc bulging as well as a broad-based left parasagittal protrusions with extends through the neural foramen. Thereis ligamentous hypertrophy and addition to facet disease. There is at least moderate to potentially severe thecal sac effacement. There is moderateto severe bilateral foraminal impingement. At the lumbosacral junction, there is minor annular disc bulging. Thereis prominent facet disease, right side slightly worse than left. There is no significant thecal sac effacement. There is moderate to severe bonyforaminal encroachment on the right and mild on the left. CT/CT lumbar spine wo con IMPRESSION: DISCOVERTEBRAL DEGENERATIVE CHANGES WITH ASSOCIATED STENOSIS, GREATEST ATL3-4 AND L4-5 OUTLINED ABOVE. Impression dictated by: Brigida Marte M.D. 04/29/2025 10:27 AM Dictation Location: [place] [address] Electronically authenticated by: [id number] Y Date: 0:27 Dictated By: Brigida Marte M.D. Signed By:04/29/25 1030 DD/ 1027 TD/TT: Electrical Cad Designer: Authorizing ProviderResult TypeResult StatusGeneric External Data ProviderIMG CT PROCEDURESFinal Result * POCT Glycated hemoglobin, total (02/12/2025 3:19 PM EDT)ComponentValueRef RangeTest MethodAnalysis TimePerformed AtPathologist SignatureHemoglobin A1C 7.0Specimen (Source)Anatomical Location / LateralityCollection Method / Volume Collection TimeReceived GupfVgczd20/21/2025 3:19 PM EDT Narrative Authorizing ProviderResult TypeResult Faustino Mattson MDPOINT OF CARE TEST ENTER/EDIT ORDERABLESFinal Result * (ABNORMAL) Microalbumin / creatinine urine ratio (07/19/2023 10:35 AM EST) ComponentValueRef RangeTest MethodAnalysis TimePerformed AtPathologist SignatureCREATININE, RANDOM SXKCP829(H)20 - 320 mg/dLQUESTComment: Verified by repeat analysis. [...] specimen obtained by clean catch procedure / Xsnhqsp1407/19/2023 10:35 AM EST07/19/2023 3:59 PM EST Narrative Resulting Agency Comment Performing Organization Information ?Site ID: [id number] ?Name: [facility] ?Address: [address] [place] [address], [address] [place] [id number] ?Director: Kuldip Hurst MD Authorizing ProviderResult TypeResult Faustino Mattson MDLAB URINE ORDERABLESFinal ResultPerforming OrganizationAddressCity/State/ZIP CodePhone Number QUEST * Color [employer] - OU - Both Eyes (06/28/2023 10:26 AM EST)Anatomical RegionLateralityModalityHeadFundus Photography Narrative Authorizing ProviderResult TypeResult StatusMaya Mattson MDOPH PHOTOGRAPHY Final Result from Last 3 Months or Most Recently Relevant to Health Maintenance Insurance [address] [place] [address] Care Teams Team MemberRelationshipSpecialtyStart DateEnd Date Maya Mattson MD [address] [place] [address] PCP - GeneralFamily Medicine11/28/22 Beryl Suarez NP [address], [place] [phone] Nurse PractitionerGroton Community Hospital Medicine11/28/22
--- OUTSIDE RECORDS SUMMARY | 2025-05-07 08:36 | XMS_ITS | Encounter Summary ---
Author Organization [facility] Address [address] [place] [address] Care Team Providers Care Repair Supervisor Name Role Phone [place] Mattson MD Primary Care Provider Beryl Suarez DRAWING FRAME TENDER Unavailable [phone] Encounter Details DateTypeDepartmentCare Team (Latest Contact Info)Rziaiefpgfj32/05/2025Clinisync Result Encounter [facility] External Department Unsolicited Provider, Generic External Data Social History Tobacco UseTypesPacks/DayYears UsedDateSmoking Tobacco: NeverSmokeless Tobacco: NeverAlcohol UseStandard Drinks/WeekCommentsYes3 (1 standard drink = 0.6 oz pure alcohol)PHQ-2AnswerDate RecordedPatient Health Questionnaire-2 Taxii925 Sex and Gender InformationValueDate RecordedSex Assigned at BirthNot on file Legal NhrJnwm7709/06/2022 6:35 PM EDTGender IdentityNot on fileSexual Orientation Not on filedocumented as of this encounter Plan of Treatment Not on file documented as of this encounter Procedures Procedure NamePriorityDate/TimeAssociated DiagnosisCommentsCT LUMBAR SPINE WO IV MWQQOTRW84/05/2025 10:27 AM EST documented in this encounter Results * CT lumbar spine wo IV contrast (04/29/2025 10:27 AM EST)Anatomical Region LateralityModalitySpine, L-spineComputed TomographySpecimen (Source)Anatomical Location / LateralityCollection Method / VolumeCollection TimeReceived Time 04/29/2025 10:27 AM EST Narrative 04/29/2025 10:30 AM EST [facility] [place] [facility] ?[address] ? [place] [address] ? CT Scan Report ? Signed ? Patient: BLACK,DIRK ? MR#: [id number] ?? : 1965 ?Acct:[id number] ?? Age/Sex: 59 / M ?ADM Date: 11/05/25 ?? Loc: CT ? Attending Dr: Elayne Neil M.D. ? Ordering Physician: Elayne Neil M.D. ?? Date of Service: 04/29/25 ?? Procedure(s): CT lumbar spine wo con ?? Accession Number(s): [id number] ? cc: [place]ISON MATTSON ? [facility] ? [address] ? [place] [address] ? Patient Name: ?? DIRK ??BLACK ? MRN: [facility]:[id number] ? date: 1965 ?Sex: M ?? Assigned Patient Location: CT ?? Current Patient Location: CT ?? Accession/Order Number: [id number] ?? Exam Date: 04/29/2025 ??09:58 ?Report Date: [...] M.D. ??04/29/2025 10:27 AM ? Dictation Location: RADIO-PC-02 ? Electronically authenticated by: [id number] ??Y ?? Date: 04/29/2025 ??10:27 ? Dictated By: ?Brigida Marte M.D. ? Signed By: ?04/29/25 1030 ? DD/ 1027 ? TD/TT: ? Warehouse Consultant: Procedure Note Radiology, Radiologist, MD - 04/29/[address] [address] [address] Scan Report Signed Patient: RIZWANA LOAIZA#: [id number] : 1965Acct:[id number] Age/Sex: 59 / MADM Date: 04/29/25 Loc: CT Attending Dr: Elayne Neil M.D. Ordering Physician: Elayne Neil M.D. Date of Service: 04/29/25 Procedure(s): CT lumbar spine wo con Accession Number(s): [id number] cc: [place] MATTSON The [address] [id number] Patient Name: DIRK LOAIZA MRN: [id number] date: 1965 Sex: M Assigned Patient Location: CT Current Patient Location: CT Accession/Order Number: [id number] Exam Date: 04/29/2025 09:58 Report Date: 04/29/2025 [...] Marte M.D. 04/29/2025 10:27 AM Dictation Location: [place] [address] Electronically authenticated by: [id number] Y Date: 0:27 Dictated By: Brigida Marte M.D. Signed By:04/29/25 1030 DD/ 1027 TD/TT: Warehouse Consultant: Authorizing ProviderResult TypeResult StatusGeneric External Data ProviderIMG CT PROCEDURESFinal Result documented in this encounter Visit Diagnoses Not on filedocumented in this encounter Care Teams Team MemberRelationshipSpecialtyStart DateEnd Date Allison Mattson MD [address] [place] [address] PCP - GeneralFamily Medicine11/28/22 Beryl Suarez NP [address] [place] [address] Nurse PractitionerFamily Medicine11/28/22documented as of this encounter
--- OUTSIDE RECORDS SUMMARY | 2025-05-07 08:36 | XMS_ITS | Encounter Summary ---
Author Organization [facility] Address [address] [place] [address] Care Team Providers Care It Investment/Portfolio Manager Name Role Phone Maya Carter MD Primary Care Provider [phone] Beryl Suarez PIPE COVERER Unavailable [phone] Encounter Details DateTypeDepartmentCare Team (Latest Contact Info)Mfvhrcalpxh46/21/2025Telephone [facility] Medicine [address] [place] [address] Maya Carter MD [address] [place], [place] [id number] Social History Tobacco UseTypesPacks/DayYears UsedDateSmoking Tobacco: NeverSmokeless Tobacco: NeverAlcohol UseStandard Drinks/WeekCommentsYes3 (1 standard drink = 0.6 oz pure alcohol)PHQ-2AnswerDate RecordedPatient Health Questionnaire-2 Mzzpa335 Sex and Gender InformationValueDate RecordedSex Assigned at BirthNot on file Legal KftEjee2409/06/2022 6:35 PM EDTGender IdentityNot on fileSexual Orientation [...] MemberRelationshipSpecialtyStart DateEnd Date Maya Carter MD [address] [place] [address] PCP - GeneralFamily Medicine11/28/22 Beryl Suarez NP [address] [place] [address] Nurse PractitionerFautly Medicine11/28/22documented as of this encounter
--- OUTSIDE RECORDS SUMMARY | 2025-05-07 08:36 | XMS_ITS | Clinical Summary ---
Author Organization [place] tem Address [id number] [address] [place] [address] Care Team Providers Care Spanish Language Lecturer Name Role Phone Maya Carter MD Primary Care Provider [phone] Allergies Active AllergyReactionsCriticalityNoted ZithNvtykyaoLuwwtqtvdkk44/25/2023 Other Reaction(s): Unknown Amoxicillin-Pot ClavulanateOther (See Comments)10/27/2018 tore my liver up Other Reaction(s): Unknown UnhnvrbfzUgdufraq11/01/2024 Medications MedicationSigDispense QuantityRefillsLast FilledStart DateEnd DateStatus apixaban [...] 2)06/10/2023hronic deep vein thrombosis (DVT) of lower jxuqljvkb73/11/2023 Overview (10/03/2022): Left leg Essential (primary) vwobjpaqbctf44nxiety Gastroesophageal reflux disease without drngikkxwze22 Obstructive sleep apnea ztymvmyi31MI 50.0-59.9, adult Ventral caxqqy99 Resolved Problems ProblemNoted DateDiagnosed DateResolved DateAcute coronary /17/2023 03/28/2024CS (acute coronary syndrome)Unstable angina /09/2023 Encounters DateTypeDepartmentCare TlhbXgyrvmzdxqg31/26/2025Telephone [facility] [address] [place] [phone] Carley Winston RN starting Bwhgohaw22/21/2025 10:30 AM EDTOffice Visit [facility] [address] [place] [address] Debra Kaur MD Essential (primary) hypertension (Primary Dx); ASCVD (arteriosclerotic cardiovascular disease)02/12/20257695Nvwnqn00/20/2025 Telephone [facility] [address] [place] [address] Lois Puentes CMA 02/04/2025 9:03 PM EDT - 02/05/2025 10:36 AM EDTHospital Encounter [facility] [address] [place] [phone] Meek Marquez MD Gill, MD Rand Najera [...] as a part of a household?No3Childcare AnswerDate QeedhwrgBtpvaeuudKmasyoz56/12/2019EmploymentAnswerDate Recorded FzxnqvcncqZptgawk97/12/2019Hunger ScreeningAnswerDate RecordedWithin the past 12 months we worried whether our food would run out before we got money to buy more.Never True02/12/2025Within the past 12 months the food we bought just didn't last and we didn't have money to get more.Never True02/12/2025Purpose - LifeAnswerDate RecordedPurpose and direction in atymVxexvwi06/11/2021ex and Gender InformationValueDate RecordedSex Assigned at BirthNot on fileLegal Sex Male01/28/2015 11:26 AM EDTGender IdentityNot on fileSexual OrientationNot on file Last Filed Vital Signs Vital SignReadingTime TakenCommentsBlood Agewnqzw299/7402/12/2025 10:04 AM EDT Sbfwx027802/12/2025 10:04 AM IZKZjwlktkvxpo91.8 ??C (98.3 ??F)02/05/2025 7:34 AM EDTRespiratory Lqea956102/05/2025 7:34 AM EDTOxygen Jszrbyyyfi87%02/12/2025 10:04 AM EDTInhaled Oxygen Concentration--Upyhrc845.2 kg (362 lb)02/12/2025 10:04 AM KNOOieaea898.3 cm (5' 11 )02/12/2025 10:04 AM EDTBody Mass Index50.49002/12/2025 10:04 AM EDT Plan of Treatment Health MaintenanceDue DateLast DoneCommentsDiabetic Ophthalmology Exam1967 Statin Use: Pdcmsupqwfyuwz1967Statin Use: Nlpaermy1967Depression Rfogjgwho76/07/1979Adult BMI Follow Up Plan1985Diabetic Foot Exam 1985Zoster (Shingles) Vaccine (1 of 2)2017Influenza Vaccine 5007/04/2018, 04/18/2016, 05/09/2015, Additional history existsAdult BMI Jstnwacgb36Tobacco Yqucguayb615DTaP,Tdap and Td Vaccines (8 - Td or Tdap), 05/15/2013, 05/15/2013, Additional history exists Goals GoalPatient Goal TypeAssociated ProblemsRecent ProgressPatient-Stated?Author home YasmaniWolfJUANI martins Note: Evaluation of progress towards goal: under assessment Medical Devices ImplantedTypeAreaManufacturerDevice IdentifierShelf Expiration DateModel / Serial / LotSystem Cor Stnt 3.5mm X 12mm 145cm Xience Skypoint Mtlnk Tom - [id number] Implanted:Qty: 1 on 06/11/2023 [facility] [place]: ArterialABBOTT [id number] / / Procedures Procedure NamePriorityDate/TimeAssociated DiagnosisCommentsBASIC METABOLIC PANEL Jfjcamd2102/12/2025 11:07 AM EDT ASCVD (arteriosclerotic cardiovascular disease) BEDSIDE ZUAKLVTHuauvpy03/14/2025 7:35 AM EDT ECG 12-LXJUBwomafk76/14/2025 4:44 AM EDT EXTRA TUBES LAVENDER YKNZeaedtw20/14/2025 4:31 AM EDT EXTRA TUBES BLUE ZJKNrpqrpi86/14/2025 4:31 AM EDT EXTRA LWKGVOfoeubu48/14/2025 4:31 AM EDT TROPONIN I, HIGH TDXKABDEDAIEBHQ55/14/2025 4:31 AM EDT XR CHEST 1 HATSAV5502/05/2025 1:05 AM EDT TROP I, HIGH SENSITIVITY 1 CYRHEFGL42/13/2025 10:21 PM EDT ECG 12-IXRVKLTK79/13/2025 9:15 PM EDTLIPID PROFILEAdd-On02/04/2025 9:14 PM EDT TROPONIN I, HIGH SENSITIVITY 0 XAIMXWHP88/13/2025 9:14 PM EDT TROPONIN I, HIGH SENSITIVITY 0 ICXCAPWV30/13/2025 9:14 PM EDT ABMJRNNZYIXPS91/13/2025 9:14 PM EDT D-PPDMYKBYG49/13/2025 9:14 PM EDT COMPREHENSIVE METABOLIC QINUISLSK70/13/2025 9:14 PM EDT B-TYPE NATRIURETIC ZJDWIGOHGYA13/13/2025 9:14 PM EDT PSFPRTYR67/13/2025 9:14 PM EDT PROTIME & BHUZFCF6602/04/2025 9:14 PM EDT CBC WITH AUTO JNIFYXZFPJIENVJB07/13/2025 9:14 PM EDT from Last 3 Months Results * (ABNORMAL) Basic Metabolic Panel (02/12/2025 11:07 AM EDT)ComponentValueRef RangeTest MethodAnalysis TimePerformed AtPathologist WhrksjdxmQMQUPT493008 - 146 mmol/L02/12/2025 1:[address] [facility]ATORYPOTASSIUM 4.63.5 - 5.0 mmol/L02/12/2025 1:[address] [facility] TILUNJPU59554 - 109 mmol/L02/12/2025 1:[address] [facility]ATORYCARBON TDEAYGP7800 - 32 mmol/L02/12/2025 1:[address] [facility]ATORYANION GAP65 - 15 mmol/L02/12/2025 1:[address] [facility] LABORATORYBLOOD UREA SJRBWNOP021 - 23 mg/dL02/12/2025 1:[address] [facility]ATORYCREATININE1.070.60 - 1.30 mg/dL 02/12/2025 1:[address] [facility]ATORYComment:METHOD TRACEABLE TO IDMS YAJEOOCSYBXZUDT061(H)65 - 99 mg/dL02/12/2025 1:55 PM EDT [facility] LABORATORYCALCIUM9.38.5 - 10.5 mg/dL02/12/2025 1:[address]ORYEGFR Non-Race Ickpspigy48>=60 ml/min/1.73sq.m002/12/2025 1:[address] [facility] Comment: Reported eGFR is based on the CKD-EPI 2020 equation that does not use a race coefficient. EGFR not calculated due to patient's gender not being defined. Specimen (Source)Anatomical Location / LateralityCollection Method / Volume Collection TimeReceived TimeBloodVenous blood / UnknownVenipuncture / Unknown 02/12/2025 11:07 AM EDT02/12/2025 11:07 AM EDT Narrative Authorizing ProviderResult TypeResult StatusJopranav Wiseman FILL TECHNICIAN-CNPLAB BLOOD ORDERABLESFinal ResultPerforming OrganizationAddressCity/State/ZIP CodePhone Number [facility] [address] [place] [address], * (ABNORMAL) Bedside Glucose *Place/Obtain serum glucose if >500 per glucometer. (02/05/2025 7:35 AM EDT)ComponentValueRef RangeTest MethodAnalysis Time Performed AtPathologist SignatureBedside Glucose (POC)130(H)65 - 99 mg/dL 02/05/2025 7:38 AM EDTPSELECT MEDICAL [facility]FAIRHILLpecimen (Source) Anatomical Location / LateralityCollection Method / VolumeCollection Time Received Timearterial/lxaiswicf07/14/2025 7:35 AM EDT02/05/2025 7:38 AM EDT Narrative Authorizing ProviderResult TypeResult StatusKaleem U Duke MDPOINT OF CARE TEST ORDERABLESFinal ResultPerforming OrganizationAddressCity/State/ZIP CodePhone Number [place] [phone] [place] [address], [place] * ECG 12 lead (02/05/2025 4:44 [...] 6:03 AM EDTPSELECT MEDICAL [facility]-FAIRHILLpecimen (Source) Anatomical Location / LateralityCollection Method / VolumeCollection Time Received TimeBloodVenous blood / Vijibcm7102/05/2025 4:31 AM EDT02/05/2025 4:34 AM EDT Narrative Authorizing ProviderResult TypeResult StatusMeek HENDERSON BLOOD ORDERABLES Final ResultPerforming OrganizationAddressCity/State/ZIP CodePhone Number [address] [place] [address], [place] * Light Blue Top (02/05/2025 4:31 AM EDT)ComponentValueRef RangeTest Method Analysis TimePerformed AtPathologist SignatureExtra TubeAuto Resulted 02/05/2025 6:03 AM EDTPUniversity Hospitals Parma Medical Centerimen (Source) Anatomical Location / LateralityCollection Method / VolumeCollection Time Received TimeBloodVenous blood / Zxbygno8702/05/2025 4:31 AM EDT02/05/2025 4:34 AM EDT Narrative Authorizing ProviderResult TypeResult StatusMeek Marquez MDLAB BLOOD ORDERABLES Final ResultPerforming OrganizationAddressCity/State/ZIP CodePhone Number [address] [place] [address], [place] * Troponin I, High Sensitivity (02/05/2025 4:31 AM EDT)ComponentValueRef Range Test MethodAnalysis TimePerformed AtPathologist SignatureTROPONIN I, HIGH ABPNIAGRKSZ45<21 ng/L02/05/2025 6:19 AM EDTPROM[facility] Specimen (Source)Anatomical Location / LateralityCollection Method / Volume Collection TimeReceived TimeBlood (Other)Venipuncture / Wwowynm0702/05/2025 4:31 AM EDT02/05/2025 4:33 AM EDT Narrative Authorizing ProviderResult TypeResult StatusHanvalente Valdez FILL TECHNICIAN-CNPLAB BLOOD ORDERABLESFinal ResultPerforming OrganizationAddressCity/State/ZIP CodePhone Number [facility] [address] [place] [address], [place] * X-ray chest 1 view (02/05/2025 [...] 1:43 AM Authorizing ProviderResult TypeResult Analia Cassidy [facility] DIAGNOSTIC IMAGING ORDERABLESFinal Result * Troponin I, High Sensitivity 1 Hour (02/04/2025 10:21 PM EDT)ComponentValueRef RangeTest MethodAnalysis TimePerformed AtPathologist SignatureTROPONIN I, HIGH TRPIFLRTQDM09<21 ng/L02/04/2025 11:04 PM [facility]DS[facility] (Source)Anatomical Location / LateralityCollection Method / VolumeCollection TimeReceived TimeBloodVenous blood / UnknownVenipuncture / Ilkjdrf4002/04/2025 10:21 PM EDT02/04/2025 10:23 PM EDT Narrative Authorizing ProviderResult TypeResult StatusMeek HENDERSON BLOOD ORDERABLES Final ResultPerforming OrganizationAddressCity/State/ZIP CodePhone Number [address] [place] [address], * Troponin I, High Sensitivity 0 Hour (02/04/2025 9:14 PM EDT)ComponentValueRef RangeTest MethodAnalysis TimePerformed AtPathologist SignatureTROPONIN I, HIGH SPMWAXDPAMT71<21 ng/L02/04/2025 10:02 PM [facility] (Source)Anatomical Location / LateralityCollection Method / VolumeCollection TimeReceived TimeBloodVenous blood / UnknownVenipuncture / Xaubcdd9302/04/2025 9:14 PM EDT02/04/2025 9:24 PM EDT Narrative Authorizing ProviderResult TypeResult StatusMeek Marquez MDLAB BLOOD ORDERABLES Final ResultPerforming OrganizationAddressCity/State/ZIP CodePhone Number [address] [place] [address], * CBC auto differential (02/04/2025 9:14 PM EDT)ComponentValueRef RangeTest MethodAnalysis TimePerformed AtPathologist SignatureWBC8.94 - 11 x10E9/L 02/04/2025 9:32 PM EDTPAULTMAN ORRVILLE HOSPITALRBC Count4.874.1 - 5.7 X10E12/L02/04/2025 9:32 PM EDTPAULTMAN [facility]RVILLE [facility]PITAL Sxvsgmfgfd84.413 - 17 g/dL02/04/2025 9:32 PM EDTPAULTMAN ORRVILLE HOSPITALHematocrit42.439 - 50 %02/04/2025 9:32 PM EDTPAULTMAN ORRVILLE HOSPITALMCV8780 - 100 fL02/04/2025 9:32 PM EDTPAULTMAN ORRVILLE HOSPITALMCH29.527 - 34 pg02/04/2025 9:32 PM EDTPAULTMAN ORRVILLE HOSPITALMCHC34.032 - 36 g/dL02/04/2025 9:32 PM EDTPAULTMAN ORRVILLE HOSPITALRDW13.911.5 - 15 %02/04/2025 9:32 PM EDTRUMBULL REGIONAL MEDICAL CENTERPlatelet Futmp664107 - 450 X10E9/L02/04/2025 9:32 PM EDT [facility]ITALMPV7.17 - 12 fL02/04/2025 9:32 PM EDT [facility]ITALNeutrophils %66.4%02/04/2025 9:32 PM EDT [facility]ITALLymphocytes %22.7%02/04/2025 9:32 PM EDT [facility]ITALMonocytes %8.1%02/04/2025 9:32 PM EDT [facility]ITALEosinophils %2.3%02/04/2025 9:32 PM EDT [facility]ITALBasophils %0.5%02/04/2025 9:32 PM EDT [facility]ITALNeutrophils Absolute (A)5.91.5 - 6.6 10*3/uL02/04/2025 9:32 PM EDTRUMBULL REGIONAL MEDICAL CENTERLymphocytes Absolute2.01.0 - 3.5 10*3/02/04/2025 9:32 PM EDTPAULTMAN ORRVILLE HOSPITALMonocytes Absolute0.70.0 - 0.9 10*3/02/04/2025 9:32 PM EDTRUMBULL REGIONAL MEDICAL CENTEREosinophils Absolute0.20.0 - 0.4 10*3/02/04/2025 9:32 PM EDTRUMBULL REGIONAL MEDICAL CENTERBasophils Absolute0.00.0 - 0.2 10*3/02/04/2025 9:32 PM EDTRUMBULL REGIONAL MEDICAL CENTERDifferential TypeAUTOMATED XXAZILXTNEPU61/13/2025 9:32 PM [facility] (Source)Anatomical Location / LateralityCollection Method / VolumeCollection TimeReceived TimeBloodVenous blood / UnknownVenipuncture / Zagxrac4602/04/2025 9:14 PM EDT02/04/2025 9:24 PM EDT Narrative Authorizing ProviderResult TypeResult StatusMeek HENDERSON BLOOD ORDERABLES Final ResultPerforming OrganizationAddressCity/State/ZIP CodePhone Number [address] [place] [address], * APTT (02/04/2025 9:14 PM EDT)ComponentValueRef RangeTest MethodAnalysis Time Performed AtPathologist YloxtgjbdBMBS3869 - 37 sec02/04/2025 9:47 PM EDT [facility] (Source)Anatomical Location / LateralityCollection Method / VolumeCollection TimeReceived TimeBloodVenous blood / UnknownVenipuncture / Hhvxaqz2902/04/2025 9:14 PM EDT02/04/2025 9:24 PM EDT Narrative Authorizing ProviderResult TypeResult StatusMeek HENDERSON BLOOD ORDERABLES Final ResultPerforming OrganizationAddressCity/State/ZIP CodePhone Number [address] [place] [address], [place] * Protime & INR (02/04/2025 9:14 PM EDT)ComponentValueRef RangeTest Method Analysis TimePerformed AtPathologist KyevfxnccIEASLUT34.19.8 - 13.2 sec 02/04/2025 9:47 PM [facility]INR1.20.9 - 1.2 02/04/2025 9:47 PM [facility]pecimen (Source) Anatomical Location / LateralityCollection Method / VolumeCollection Time Received TimeBloodVenous blood / UnknownVenipuncture / Oopjtcf8402/04/2025 9:14 PM EDT02/04/2025 9:24 PM EDT Narrative Authorizing ProviderResult TypeResult StatusMeek HENDERSON BLOOD ORDERABLES Final ResultPerforming OrganizationAddressty/[facility]/ZIP CodePhone Number [address] [place] [address], [place] * D-Dimer (02/04/2025 9:14 PM EDT)ComponentValueRef RangeTest MethodAnalysis TimePerformed AtPathologist SignatureD DIMER<1501 - 255 ug/mL02/04/2025 9:47 PM [facility]ITALComment:Results <255 ng/mL DDU: The presensence of a VTE can safely be excluded with a negative D-Dimer result and Wells score. A negative result doesn't exclude the possibility of DIC. The test should berepeated along with other diagnostic tests if the patient's symptoms persist or worsen.Specimen (Source)Anatomical Location / Laterality Collection Method / VolumeCollection TimeReceived TimeBloodVenous blood / UnknownVenipuncture / Ufugetb0002/04/2025 9:14 PM EDT02/04/2025 9:24 PM EDT Narrative Authorizing ProviderResult TypeResult StatusMeek HENDERSON BLOOD ORDERABLES Final ResultPerforming OrganizationAddressty/State/ZIP CodePhone Number [address] [place] [address], [place] * B-type natriuretic peptide (02/04/2025 9:14 PM EDT)ComponentValueRef RangeTest MethodAnalysis TimePerformed AtPathologist UwwktxllaOZC10<=100 pg/mL02/04/2025 11:02 PM [facility]DS[facility] (Source)Anatomical Location / LateralityCollection Method / VolumeCollection TimeReceived Time BloodVenous blood / UnknownVenipuncture / Ivessph0902/04/2025 9:14 PM EDT 02/04/2025 9:24 PM EDT Narrative Authorizing ProviderResult TypeResult Shanna Marquez MDLAB BLOOD ORDERABLES Final ResultPerforming OrganizationAddressty/State/ZIP CodePhone Number [address] [place] [address], [place] * Magnesium (02/04/2025 9:14 PM EDT)ComponentValueRef RangeTest MethodAnalysis TimePerformed AtPathologist SignatureMAGNESIUM2.11.8 - 2.6 mg/dL02/04/2025 9:55 PM [facility]DSum[facility] (Source)Anatomical Location / LateralityCollection Method / VolumeCollection TimeReceived Time BloodVenous blood / UnknownVenipuncture / Igbrazq9202/04/2025 9:14 PM EDT 02/04/2025 9:24 PM EDT Narrative Authorizing ProviderResult TypeResult StatusMeek HENDERSON BLOOD ORDERABLES Final ResultPerforming OrganizationAddressty/State/ZIP CodePhone Number [address] [place] [address], [place] * (ABNORMAL) Lipid profile (02/04/2025 9:14 PM EDT)ComponentValueRef RangeTest MethodAnalysis TimePerformed AtPathologist HzubecnkdCAOROHEGVTS816(L)150 - 200 mg/dL02/05/2025 10:[address] [facility] PPSFATHPBGZRUXMDSYXNMR545 27 - 150 mg/dL02/05/2025 10:[address] LABORATORYHDL YMYRISMLSNY66(L)>39 mg/dL02/05/2025 10:[address] [facility]ORATORYComment: HDL <40 mg/dL - High Risk HDL > or = 40mg/dL- Desirable HDL >60 mg/dL - Negative Risk LDL (CALC)76<130 mg/dL08/ 10:[address] [facility] Comment: LDL <100 mg/dL - Desirable LDL >160 mg/dL - High Risk CHOLESTEROL:HDL3.61.0 - 5.008 10:[address] LABORATORYVERY LOW XLXJINPXONI399 - 30 mg/dL02/05/2025 10:[address] LABORATORYSpecimen (Source)Anatomical Location / Laterality Collection Method / VolumeCollection TimeReceived TimeBloodVenous blood / UnknownVenipuncture / Bcnzbfj1702/04/2025 9:14 PM EDT02/04/2025 9:24 PM EDT Narrative Authorizing ProviderResult TypeResult StatusHanvalente Valdez FILL TECHNICIAN-CNPLAB BLOOD ORDERABLESFinal ResultPerforming OrganizationAddressCity/State/ZIP CodePhone Number [facility] [address] [place] [address], * (ABNORMAL) Comprehensive metabolic panel (02/04/2025 9:14 PM EDT)Component ValueRef RangeTest MethodAnalysis TimePerformed AtPathologist SignatureSODIUM 130715 - 146 mmol/L02/04/2025 9:55 PM [facility] POTASSIUM4.23.5 - 5.0 mmol/L02/04/2025 9:55 PM [facility]ITALCHLORIDE10098 - 109 mmol/L02/04/2025 9:55 PM [facility]ITALCARBON GJMDCKD9157 - 32 mmol/L02/04/2025 9:55 PM EDTRUMBULL REGIONAL MEDICAL CENTERANION HXC025 - 15 mmol/L02/04/2025 9:55 PM EDT [facility]ENTOBLOOD UREA ZPSKITOV157 - 23 mg/dL02/04/2025 9:55 PM EDTRUMBULL REGIONAL MEDICAL CENTERCREATININE1.020.70 - 1.20 mg/dL 02/04/2025 9:55 PM [facility]ITALComment:METHOD TRACEABLE TO IDMS DXDJLYGUIAMBZOP165(H)65 - 99 mg/dL02/04/2025 9:55 PM EDT [facility]ITALCALCIUM9.58.5 - 10.5 mg/dL02/04/2025 9:55 PM [facility]ITALTOTAL PROTEIN7.76.0 - 8.0 g/dL 02/04/2025 9:55 PM [facility]ITALALBUMIN4.03.2 - 5.3 g/dL02/04/2025 9:55 PM [facility]ITALALKALINE OQNHIEVYYLG6464 - 130 U/L02/04/2025 9:55 PM [facility]AST27<=41 U/L02/04/2025 9:55 PM [facility] ALT32<=40 U/L02/04/2025 9:55 PM [facility] BILIRUBIN,TOTAL0.50.3 - 1.2 mg/dL02/04/2025 9:55 PM [facility]ITALEGFR Non-Race Mnmzvhagd05>=60 ml/min/1.73sq.m002/04/2025 9:55 PM [facility]ITALComment: eGFR not reported due to non-numeric value for Creatinine. Reported eGFR is based on the CKD-EPI 2020 equation that does not use a race coefficient. Specimen (Source)Anatomical Location / LateralityCollection Method / Volume Collection TimeReceived TimeBloodVenous blood / UnknownVenipuncture / Unknown 02/04/2025 9:14 PM EDT02/04/2025 9:24 PM EDT Narrative Authorizing ProviderResult TypeResult StatusMeek Marquez MDLAB BLOOD ORDERABLES Final ResultPerforming OrganizationAddressCity/State/ZIP CodePhone Number [facility] [address] [place] [address], from Last 3 Months Insurance * Guarantor: Dirk FrankAccoelayne TypeRelation to PatientDate of BirthPhone Billing ZjtijqgGpbaysZymf1965 [address] [place] [phone] Advance Directives * Full Code (Latest Code Status on File) Date ActivatedDate InactivatedComments02/05/2025 12:21 AM02/05/2025 12:46 PM * Full Code Date ActivatedDate OtrlvvkxjuaNzwshqng24/17/2023 7:04 AM06/12/2023 7:16 PM Care Teams Team MemberRelationshipSpecialtyStart DateEnd Date Maya Carter MD [address] [place] [address] PCP - GeneralFamily Medicine08/15/17
--- NOTE | 2025-05-07 09:18 | PM.CN ---
Consult Note: HPI Data of Consult Patient: known to practice within the last 3 years Consult date: 05/07/25 Requesting Physician: Florencia Tatum NP Primary Care Provider: ALLISON MATTSON Consult Narrative Reason for consult: Low back, bilateral lower extremity pain Narrative: 60yom who presents for evaluation. Worsening low back, bilateral lower extremity pain over the last few years. Has engaged in >6 weeks of provider directed home exercise course, with minimal benefit. Prior EMG consistent with L3/4 radiculopathy. Since last visit pt underwent updated lumbar CT with results below. Patient previously declined NS consultation however he has failed to benefit from numerous lumbar TFESIs and SIJ injections with our office, as well as gabapentin, pregabalin, zonegran, tylenol #3. Pain today 7/10 increasing to 10/10 with standing, walking, activity. notes improvement in pain and functional ability while walking with a grocery cart. denies falls/injury. denies loss of bowel/bladder. YEIMY 46%. notes mild relief with tizanidine 4mg hs and tramadol 50mg up to TID PRN. on mounjaro for weight loss. cannot take NSAIDs, on eliquis. cc:: CC: Folrencia Tatum NP Review of Systems ROS Musculoskeletal Reports: back pain and extremity pain PFSH PFSH Medical History Low back pain ?M54.50 - Low back pain, unspecified (ICD-10) Diabetes ?E11.9 - Type 2 diabetes mellitus without complications (ICD-10) Sleep apnea ?G47.30 - Sleep apnea, unspecified (ICD-10) Asthma ?J45.909 - Unspecified asthma, uncomplicated (ICD-10) Surgical History S/P left knee arthroscopy ?Z98.890 - Other specified postprocedural states (ICD-10) S/P arthroscopy of shoulder ?Z98.890 - Other specified postprocedural states (ICD-10) H/O cervical spine surgery ?Z98.890 - Other specified postprocedural states (ICD-10) History of umbilical hernia repair ?Z98.890 - Other specified postprocedural states (ICD-10) ?Z87.19 - Personal history of other diseases of the digestive system (ICD-10) S/P inguinal hernia repair ?Z98.890 - Other specified postprocedural states (ICD-10) ?Z87.19 - Personal history of other diseases of the digestive system (ICD-10) S/P carpal tunnel release ?Z98.890 - Other specified postprocedural states (ICD-10) History of appendectomy ?Z90.49 - Acquired absence of other specified parts of digestive tract (ICD-10) Meds Home Medications and Allergies Home Medications ?Medication ?Instructions ?Recorded ?Confirmed ?Type apixaban 5 mg tablet (Eliquis) 5 mg PO BID 04/23/23 01/28/24 History metformin 500 mg tablet 500 mg PO BID 04/23/23 01/28/24 History metoprolol tartrate 50 mg tablet 50 mg PO BID 04/23/23 01/28/24 History tizanidine 4 mg capsule (Zanaflex) 4 mg PO DAILY PRN muscle spasticity 04/23/23 08/11/24 History ascorbic acid (vitamin C) 500 mg 500 mg PO DAILY 10/11/23 01/28/24 History tablet (C-500) multivitamin 1 tab PO DAILY 10/11/23 01/28/24 History omega 6-jnl-cis-fish oil 300 1 cap PO DAILY 10/11/23 01/28/24 History mg-1,000 mg capsule (Fish Oil) acetaminophen 300 mg-codeine 30 mg 1 tab PO BID PRN pain #14 tabs 06/30/24 Rx tablet tizanidine 4 mg capsule (Zanaflex) 4 mg PO DAILY PRN muscle 08/11/24 Rx spasticity #30 caps tramadol 50 mg tablet 50 mg PO TID PRN pain #90 tabs 11/10/24 Rx tizanidine 4 mg tablet 4 mg PO DAILY PRN muscle 04/20/25 Rx spasticity #30 tabs tramadol 50 mg tablet 50 mg PO TID PRN pain #90 tabs 04/20/25 Rx Allergies Allergy/AdvReac Type Severity Reaction Status Date / Time amoxicillin (From Augmentin) Allergy Unknown Gastrointestinal Verified 01/28/24 07:56 Upset clavulanic acid (From Allergy Unknown Gastrointestinal Verified 01/28/24 07:56 Augmentin) Upset zonisamide (From Zonegran) AdvReac Severe suicidal Verified 08/11/24 12:18 Exam Constitutional Documenting provider has reviewed patient's vital signs: yes Common normals: no apparent distress, oriented x3 and alert General appearance: cooperative Nutritional appearance: obese HENMT Common normals: normocephalic, hearing grossly normal bilaterally and moist oral mucous membranes Head and scalp: normocephalic Eye Common normals: PERRL Pupil: PERRL Neck & C-Spine Common normals: full ROM General: normal visual inspection Chest Common normals: inspection of chest normal Respiratory Common normals: normal respiratory effort, no retractions and no use of accessory muscles Back & Pelvis Lumbar spine/lower back: ROM limited, pain with ROM, lumbar spinal tenderness, straight leg raise positive right and straight leg raise positive left Other: intermittent bilateral L3,4,5 dermatomal pattern with standing and walking positive facet loading strength 5/5 in BLE Neuro Common normals: oriented x3 Sensorium/orientation: alert Psych Common normals: mental status grossly normal, thought process normal, cooperative, affect normal, speech normal and activity/motor behavior normal Speech: normal speech Thought process: normal thought process Results Imaging lumbar CT: Attestation: I have reviewed the pertinent imaging results. Radiologist's impression: Spiral axial unenhanced images were obtained through the lumbar spine. Sagittal, coronal and 3-D volume rendered reconstructions were reviewed. This CT exam was performed using one or more following dose reduction techniques: Automated exposure control, adjustment of the mA and/or kV according to patient size, or use of iterative reconstruction technique. There is subtle wedge deformity at T11 which is probably physiologic. No acute lumbar compression fractures are identified. No significant displacement is seen. There is slight disc space narrowing at L2-L3 and L3-4. Mild endplate spurring is seen throughout. There is facet hypertrophy, greatest distally. The SI joints are intact and there is mild spurring. No paraspinal soft tissue abnormalities are seen. Minor atherosclerotic disease is noted. There are no acute intraperitoneal findings in the field of view. At T12-L1 and L1-2, there is minor annular disc bulging which is greater extending laterally. There is no significant thecal sac effacement. There is minimal inferior foraminal encroachment at T12-L1 and mild at L1-2. At L2-3, there is mild annular disc bulging slightly asymmetric through the left neural foramen and extending laterally. There is minor facet and ligamentous hypertrophy with slight thecal sac effacement. There is mild inferior foraminal encroachment. At L3-4, there is mild annular disc bulging. There is moderate facet and mild ligamentous hypertrophy. There is moderate to severe central stenosis. There is mild to moderate bilateral foraminal encroachment. At L4-5, there is annular disc bulging as well as a broad-based left parasagittal protrusions with extends through the neural foramen. There is ligamentous hypertrophy and addition to facet disease. There is at least moderate to potentially severe thecal sac effacement. There is moderate to severe bilateral foraminal impingement. At the lumbosacral junction, there is minor annular disc bulging. There is prominent facet disease, right side slightly worse than left. There is no significant thecal sac effacement. There is moderate to severe bony foraminal encroachment on the right and mild on the left. Additional Findings Additional findings: If on a controlled substance or opioids, I have checked an [place] report on this patient and there are no aberrancies noted in the prescribing history.??If on a controlled substance or opioid a drug screen was completed and reviewed within the last year, and if there has not been a drug screen completed we ordered one today to monitor higher risk, state monitored pain medication use. As part of providing excellent, safe, comprehensive care, the following was completed at our patient's visit: 1. A medication reconciliation and review to ensure accurate knowledge of current/active medications, including asking our patients to inform us about any [id number] medications or herbal remedies/nutritional supplements/alternative remedies. 2. A review to specifically ensure our patients have had annual screening for screening for depression, screening for tobacco use, and screening for unhealthy alcohol use. For concerning screenings had a discussion with the patient, provided patient education, and recommended follow-up with primary care provider when appropriate. If patient noted with a risk of falling, they received education on strength, gait, and balance training to prevent future risk of falling. Portions of this note may have been carried over from the previous visit and updated as appropriate. Please note this office utilizes paper charting in addition to the electronic medical record. A list of current medications, vitals, and PMH is available there as the clinical staff outside of myself do not have access to [employer] [facility] [employer] charting during the clinic day operations. As part of providing quality comprehensive care the current medications, vitals, and PMH were reviewed in the paper chart. Assessment and Plan Assessment and Plan (1) Lumbar stenosis with neurogenic claudication: Plan 60 year old male with longstanding low back and BLE pain secondary to lumbar stenosis with NC, at this time I recommend pt be evaluated by NS for consideration of surgical intervention due to significant stenosis and failure to respond to conservative therapy. continue current medication regimen. f/u based on NS recommendations. will need 3 month f/u to maintain medication regimen.
== END 2025-05-07 08:33 | disposition home or self-care (01) ==
LOC: PM 08:33
PROVIDERS: PCP Family Medicine; Visit Provider Nurse Practitioner
DX: M48.062 Spinal stenosis, lumbar region with neurogenic claudication (principal)
CPT/HCPCS: G0463